=== PATIENT | male | born 1935 | race Hispanic/Latino ===

== ENCOUNTER 2020-01-21 11:16 | Inpatient (IN) | payer OTHER ==
--- OUTSIDE RECORDS SUMMARY | 2020-01-21 11:18 | XMS REPORT | Clinical Summary ---
:1935 Author Organization [facility] Address [address] [place] [address] Care Team Providers Name Role Phone Hugo Browning Primary Care Provider Unavailable Allergies Active Allergy Reactions Severity Noted Date Comments Penicillins Rash Low 11/02/2016 Medications Medication Sig Dispensed Refills Start Date End Date Status sodium bicarbonate Take 1 tablet by 0 Active 650 MG tablet mouth 3 (three) times daily. bumetanide (BUMEX) 1 Take 1 mg by mouth 0 Active MG tablet 2 (two) times daily. cholecalciferol, Take 5,000 Units by 0 Active vitamin D3, 5,000 mouth daily. unit Tab allopurinol Take 300 mg by 0 Act kayleigh (ZYLOPRIM) 300 MG mouth daily. tablet carvedilol (COREG) Take 25 mg by mouth 0 Active 12.5 MG tablet 2 (two) times daily with breakfast and dinner. ferrous sulfate 325 Take 325 mg by 0 Active (65 FE) MG tablet mouth daily with breakfast. Active Problems Problem Noted Date ESRD needing dialysis 11/09/2016 Acute renal failure, unspecified acute renal failure t ype 11/02/2016 CKD (chronic kidney disease) stage 5, GFR less than 15 ml/min 11/02/2016 HTN (hypertension) 11/02/2016 DM (diabetes mellitus) 11/02/2016 Social History Tobacco Use Types Packs/Day Years Used Date Never Smoker Alcohol Use Drinks/Week oz/Week Comments No Sex Assigned at Date Recorded Not on file Job Start Date Occupation Industry Not on file Not on file Not on file Travel History Travel Start Travel End No recent travel history available. Last Filed Vital Signs Not on file Plan of Treatment Not on file Implants Implanted Type Area Account Development Executive Device Shelf Model / Identifier Expiration Serial / Lot Date Cath Estefania Dlys 2 Cuf Curl 62cm [id number] - [id number] Catheter N/A: COVIDIEN:CHAD 04/29/2021 [id number] / Implanted: Qty: 1 on 11/04/2016 by Alva Chowdary MD Dialysis Niallo scooby [place] / Tobacco Sieve Operator [id number] Results Not on fileafter 01/20/2019 Insurance Payer Benefit Plan / Group Subscriber ID Type Phone A ddress MEDICARE MEDICARE A B xxxxxxxxxx Medicare Advance Directives For more information, please contact:[address] [phone] Code Status Date Activated Date Inactivated Comments Full Code 11/09/2016 3:33 AM 11/10/2016 3:42 PM This code status was determined by: Patient Full Code 11/02/2016 4:40 PM 11/04/2016 10:38 PM This code status was determined by: Patient
--- OUTSIDE RECORDS SUMMARY | 2020-01-21 11:18 | XMS REPORT | Clinical Summary ---
:1935 Author Organization [facility] Address [address] [place] [address] Care Team Providers Name Role Phone MD Ann Primary Care Provider Allergies Active Allergy Reactions Severity Noted Date Comments Penicillins Rash High 12/08/2016 Medications Medication Sig Dispensed Refills Start Date End Date Status allopurinol (ZYLOPRIM) Take 300 mg by 0 Active 300 MG tablet mouth daily. cholecalciferol, Take 5,000 Units 0 Active vitamin D3, (VITAMIN by mouth daily. D3) 1,000 unit tablet isosorbide dinitrate Take 20 mg by 0 Active (ISORDIL) 20 MG tablet mouth 2 (two) times a day. sevelamer (RENVELA) 800 Take 800 mg by 0 Active mg tablet mouth 3 (three) times a day with meals. sodium bicarbonate 648 Take 648 mg by 0 Active MG tablet mouth 3 (three) times a day. 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/21 Overview: Added automatically from request for betsy marquez [id number] ESRD (end stage renal disease) 201612/09/2016 Encounter for screening for diabetes mellitus 12/10/19 17 HTN (hypertension) 12/09/2016 Peritoneal dialysis catheter infection 201612/08/2016 Social History Tobacco Use Types Packs/Day Years Used Date Former Smoker Cigarettes Smokeless Tobacco: Never Used Tobacco Cessation: Counseling Given: Yes Comments: stopped 40 yrs ago Alcohol Use Drinks/Week oz/Week Comments No Sex Assigned at Date Recorded Not on file Job Start Date Occupation Industry Not on file Not on file Not on file Travel History Travel Start Travel End No recent travel history available. Last Filed Vital Signs Not on file Plan of Treatment Health Maintenance Due Date Last Done Comments DIABETIC RETINAL EYE EXAM 1935 DIABETIC FOOT EXAM 1946 URINE MICROALBUMIN 1946 SHINGLES VACCINES (#1) 1986 65+ PNEUMOCOCCAL VACCINE (1 of 2 - PCV13) 2001 INFLUENZA VACCINE 04/13/2020 Implants Implanted Type Area Cloth Wire Weaver Device Shelf Model / Identifier Expiration Serial / Date Lot Catheter Dialysis Glidepath [id number] Symmetric Tip - [id number] Implantable N/A: N/A BARD PERIPHERAL 06/12/2018 [id number] / Implanted: 12/09/2016 at [facility] (Quantity not on file) Inf usion Ports VASCULAR / or Accessories [id number] Catheter Dialysis Glidepath [id number] Symmetric Tip - [id number] Implantable Left: BARD PERIPHERAL 02/10/2019 [id number] / Implanted: Qty: 1 on 07/06/2017 by Cira Arrieta MD at [facility] Infusion Ports Chest VASCULAR / or Accessories [id number] Clip Ligtng Weck Hemoclip Plus W/ Tape Ti Sm - [id number] Medical Clips Left: WECK CLOSURE 07/14/2021 [id number] / Implanted: Qty: 2 on 02/04/2017 by Sachin Acevedo MD at [facility] for Internal Arm, SYSTEMS / Use Lower [id number] Clip Ligtng Weck Hemoclip Plus W/ Tape Ti Med - [id number] Medica l Clips Left: TELEFLEX 09/17/2021 [id number] / Implanted: Qty: 2 on 02/04/2017 by Sachin Acevedo MD at [facility] for Internal Arm, MEDICAL / Use Lower [id number] Clip Ligtng Weck Hemoclip Plus W/ Tape Ti Sm - [id number] Medical Clips Left: WECK CLOSURE 01/28/2022 [id number] / Implanted: Qty: 1 on 06/22/2017 by Cira Arrieta MD at [facility] for Internal Arm, SYSTEMS / Use Lower [id number] Clip Ligtng Weck Hemoclip Plus W/ Tape Ti Med - [id number] Medica l Clips Left: TELEFLEX [id number] / Implanted: 06/22/2017 at [facility] (Quantity not on file) for Internal Arm, MEDICAL / Use Lower Catheter Emboltmy 1lmn Baln 4fr 80cm 10.5mm 0.75ml Ltx - [id number] Surgical Left: CUENCA [id number] / Implanted: Qty: 1 on 06/22/2017 by Cira Arrieta MD at [facility] Implants; Arm LIFESCIENCES / Expanders; [id number] Extenders; Surgical Wires Catheter Metallurgical Analyst 4x75cm 6mm Conquest - [id number] Surgical Left: BARD PERIPHERAL [id number] / Implanted: Qty: 1 on 06/22/2017 by Cira Arrieta MD at [facility] Implants; Arm VASCULAR / Expanders; [id number] Extenders; Surgical Wires Catheter Emboltmy Otw Thru-Lmn 5.5fr 80cm Fgrty - [id number] Surg ical Left: CUENCA [id number] / Implanted: Qty: 1 on 06/22/2017 by Cira Arrieta MD at [facility] Implants; Arm LIFESCIENCES / Expanders; [id number] Extenders; Surgical Wires Catheter Emboltmy Aleida 5fr 80cm Artrl Tube Pack - [id number] S urgical Left: CUENCA [id number] / Implanted: Qty: 1 on 06/22/2017 by Cira Arrieta MD at [facility] Implants; Arm LIFESCIENCES / Expanders; [id number] Extenders; Surgical Wires Graft Accuseal 45cm 4-7mm Tapered - [id number] Vascular Graft Left: W Carlitos GORE 07/07/2019 [id number] / Implanted: 02/04/2017 at [facility] (Quantity not on file) Arm, [id number] / Lower [id number] Results Not on fileafter 01/20/2019 Insurance Payer Benefit Plan / Subscriber ID Effective Dates Phone Addre ss Type Group MEDICARE MEDICARE PART A xxxxxxxxxx 2001-Present GILBERTO ANDREWS Medicare AND B Advance Directives For more information, please contact: [phone] Type Date Recorded Patient Materials Clerk Explanati on Advance Directives, Living Will 02/04/2017 8:02 AM and Medical Power of Leather Cleaner Advance Directives, Living Will 12/08/2016 11:01 AM and Medical Power of Leather Cleaner Code Status Date Activated Date Inactivated Comments Full Code 12/08/2016 4:50 PM 12/14/2016 6:23 PM Code Status decision reached by: Patient Full Code 12/08/2016 3:39 PM 12/08/2016 4:50 PM Code Status decision reached by: Patient Full Code 12/08/2016 10:06 AM 12/08/2016 3:39 PM Code Status decision reached by: Patient
--- OUTSIDE RECORDS SUMMARY | 2020-01-21 11:19 | XMS REPORT ---
:1935 Author Organization [facility] t Address [address] [place] [address] Care Team Providers Name Role Phone KELLIE HOOD Unavailable Unavailable SADIA SWEET Unavailable Unavailable Problems This patient has no known problems. Allergies, Adverse Reactions, Alerts This patient has no known allergies or adverse reactions. Medications This patient has no known medications. Results Test Description Test Time Test Comments Text Results Atomic Results Result Comments TSH/FREE T4 IF INDICATED 2016-11-10 10:20:00 Test Item Value Reference Range Comments THYROID STIMULATING HORMONE (BEAKER) (test code = 772) 0.86 uIU/ mL 0.35-4.94 HEPATITIS B [id number] 06:18:00 Test Item Value Reference Range Comments HEPATITIS B CORE TOTAL ANTIBODY (BEAKER) (test Nonreactive N onreactive code = 497) HEPATITIS B SURFACE ANTIBODY (BEAKER) (test code < mIU/mL <8.0 = 647) HEPATITIS B SURFACE ANTIGEN (2) (BEAKER) (test Nonreactive N onreactive code = 2585) BASIC METABOLIC [id number] 05:58:00 Test Item Value Reference Range Comments SODIUM (BEAKER) (test 146 meq/L 136-145 code = 381) POTASSIUM (BEAKER) (test 4.1 meq/L 3.5-5.1 code = 379) CHLORIDE (BEAKER) (test 116 meq/L 98-107 code = 382) CO2 (BEAKER) (test code = 19 meq/L 22-29 355) BLOOD UREA NITROGEN 83 mg/dL 7-21 (BEAKER) (test code = 354) CREATININE (BEAKER) (test 5.06 mg/dL 0.57-1.25 code = 358) GLUCOSE RANDOM (BEAKER) 104 mg/dL 70-105 (test code = 652) CALCIUM (BEAKER) (test 8.9 mg/dL 8.4-10.2 code = 697) EGFR (BEAKER) (test code 11 mL/min/1.73 sq m EST IMATED GFR IS NOT = 1092) ACCURATE CREA TININE CLEARANCE IN PRE DICTING GLOMERULAR FILTR ATION RATE. ESTIMATED GFR IS NOT APPLICABLE F OR DIALYSIS PATIENT S. BASIC METABOLIC [id number] 06:23:00 Test Item Value Reference Range Comments SODIUM (BEAKER) (test 150 meq/L 136-145 code = 381) POTASSIUM (BEAKER) (test 4.1 meq/L 3.5-5.1 code = 379) CHLORIDE (BEAKER) (test 119 meq/L 98-107 code = 382) CO2 (BEAKER) (test code = 20 meq/L 22-29 355) BLOOD UREA NITROGEN 75 mg/dL 7-21 (BEAKER) (test code = 354) CREATININE (BEAKER) (test 4.54 mg/dL 0.57-1.25 code = 358) GLUCOSE RANDOM (BEAKER) 98 mg/dL 70-105 (test code = 652) CALCIUM (BEAKER) (test 9.4 mg/dL 8.4-10.2 code = 697) EGFR (BEAKER) (test code 13 mL/min/1.73 sq m EST IMATED GFR IS NOT = 1092) ACCURATE CREA TININE CLEARANCE IN PRE DICTING GLOMERULAR FILTR ATION RATE. ESTIMATED GFR IS NOT APPLICABLE F OR DIALYSIS PATIENT S. CBC (HEMOGRAM ONLY)2016-11-09 06:12:00 Test Item Value Reference Range Comments WHITE BLOOD CELL COUNT (BEAKER) (test code = 6.0 K/ L 4.0 -10.0 775) RED BLOOD CELL COUNT (BEAKER) (test code = 761) 2.99 M/ L 4.20-5.80 HEMOGLOBIN (BEAKER) (test code = 410) 9.5 GM/DL 13.0-16.8 HEMATOCRIT (BEAKER) (test code = 411) 26.8 % 40.0-50.0 MEAN CORPUSCULAR VOLUME (BEAKER) (test code = 89.7 fL 82 .0-98.0 753) MEAN CORPUSCULAR HEMOGLOBIN (BEAKER) (test code 31.8 pg 27.0-33.0 = 751) MEAN CORPUSCULAR HEMOGLOBIN CONC (BEAKER) (test 35.4 GM/DL 32.0-36.0 code = 752) RED CELL DISTRIBUTION WIDTH (BEAKER) (test code 16.5 % 10.3-14.2 = 412) PLATELET COUNT (BEAKER) (test code = 756) 133 K/CU MM 150-43 0 MEAN PLATELET VOLUME (BEAKER) (test code = 754) 7.7 fL 6.5-10.5 NUCLEATED RED BLOOD CELLS (BEAKER) (test code = 0 /100 WBC 0-0 413) 0.00POCT-GLUCOSE [id number] 17:48:00 Test Item Value Reference Range Comments POC-GLUCOSE METER (BEAKER) 95 mg/dL 70-110 TESTE D AT [address] (test code = 1538) [place] [address] POCT-GLUCOSE [id number] 16:00:00 Test Item Value Reference Range Comments POC-GLUCOSE METER (BEAKER) 81 mg/dL 70-110 TESTE D AT [address] (test code = 1538) [place] [address] POCT-GLUCOSE [id number] 11:37:00 Test Item Value Reference Range Comments POC-GLUCOSE METER (BEAKER) 88 mg/dL 70-110 TESTE D AT [address] (test code = 1538) [place] [address] POCT-GLUCOSE [id number] 08:18:00 Test Item Value Reference Range Comments POC-GLUCOSE METER (BEAKER) 82 mg/dL 70-110 TESTE D AT [address] (test code = 1538) [place] [address] BASIC METABOLIC [id number] 06:08:00 Test Item Value Reference Range Comments SODIUM (BEAKER) (test 145 meq/L 136-145 code = 381) POTASSIUM (BEAKER) (test 4.1 meq/L 3.5-5.1 code = 379) CHLORIDE (BEAKER) (test 112 meq/L 98-107 code = 382) CO2 (BEAKER) (test code = 22 meq/L 22-29 355) BLOOD UREA NITROGEN 68 mg/dL 7-21 (BEAKER) (test code = 354) CREATININE (BEAKER) (test 5.02 mg/dL 0.57-1.25 code = 358) GLUCOSE RANDOM (BEAKER) 77 mg/dL 70-105 (test code = 652) CALCIUM (BEAKER) (test 8.8 mg/dL 8.4-10.2 code = 697) EGFR (BEAKER) (test code 11 mL/min/1.73 sq m EST IMATED GFR IS NOT = 1092) ACCURATE CREA TININE CLEARANCE IN PRE DICTING GLOMERULAR FILTR ATION RATE. ESTIMATED GFR IS NOT APPLICABLE F OR DIALYSIS PATIENT S. [id number] 06:07:00 Test Item Value Reference Range Comments PHOSPHORUS (BEAKER) (test code = 604) 5.2 mg/dL 2.3-4.7 [id number] 06:07:00 Test Item Value Reference Range Comments MAGNESIUM (BEAKER) (test code = 627) 2.2 mg/dL 1.6-2.6 POCT-GLUCOSE [id number] 21:33:00 Test Item Value Reference Range Comments POC-GLUCOSE METER (BEAKER) 96 mg/dL 70-110 TESTE D AT [address] (test code = 1538) [place] [address] POCT-GLUCOSE [id number] 21:33:00 Test Item Value Reference Range Comments POC-GLUCOSE METER (BEAKER) 148 mg/dL 70-110 TESTE D AT [address] (test code = 1538) [place] [address] [id number] 13:41:00 Test Item Value Reference Range Comments FERRITIN (BEAKER) (test code = 361) 1268 ng/mL 5-275 Effective 07/31/2014: Reference Range ChangeNew: Male 5-275 Previous: Male 22-322 Female 5-275 Female 10-291VITAMIN D, 25-HYDROXY 2016-11-03 13:41:00 Test Item Value Reference Range Comments VITAMIN D 25-OH (BEAKER) (test code = 2764) 34.1 ng/mL 13.0 -47.8 PTH, [id number] 13:15:00 Test Item Value Reference Range Comments PARATHYROID HORMONE INTACT (BEAKER) (test code = 161.7 pg/mL 8.5-72.5 577) Effective 07/31/2014: Reference Range ChangeNew: 8.5-72.5 Previous: 15.0-90.0 [id number] 13:10:00 Test Item Value Reference Range Comments PHOSPHORUS (BEAKER) (test code = 604) 5.6 mg/dL 2.3-4.7 IRON, TIBC, % SAT. (WITHOUT FERRITIN)2016-11-03 13:10:00 Test Item Value Reference Range Comments IRON (BEAKER) (test code = 547) 97 ug/dL 40-160 TOTAL IRON BINDING CAPACITY (BEAKER) (test code = 183 ug/dL 250-450 769) IRON % SATURATION (2) (BEAKER) (test code = 2590) 53 % 20-55 POCT-GLUCOSE [id number] 11:59:00 Test Item Value Reference Range Comments POC-GLUCOSE METER (BEAKER) 84 mg/dL 70-110 TESTE D AT [address] (test code = 1538) [place] [address] POCT-GLUCOSE [id number] 08:05:00 Test Item Value Reference Range Comments POC-GLUCOSE METER (BEAKER) 89 mg/dL 70-110 TESTE D AT [address] (test code = 1538) [facility] [address] CBC W/PLT COUNT & AUTO [id number] 07:18:00 Test Item Value Reference Range Comments WHITE BLOOD CELL COUNT (BEAKER) (test code = 3.9 K/ L 4.0 -10.0 775) RED BLOOD CELL COUNT (BEAKER) (test code = 761) 2.30 M/ L 4.20-5.80 HEMOGLOBIN (BEAKER) (test code = 410) 7.3 GM/DL 13.0-16.8 HEMATOCRIT (BEAKER) (test code = 411) 20.8 % 40.0-50.0 MEAN CORPUSCULAR VOLUME (BEAKER) (test code = 90.2 fL 82 .0-98.0 753) MEAN CORPUSCULAR HEMOGLOBIN (BEAKER) (test code 31.8 pg 27.0-33.0 = 751) MEAN CORPUSCULAR HEMOGLOBIN CONC (BEAKER) (test 35.3 GM/DL 32.0-36.0 code = 752) RED CELL DISTRIBUTION WIDTH (BEAKER) (test code 16.3 % 10.3-14.2 = 412) PLATELET COUNT (BEAKER) (test code = 756) 136 K/CU MM 150-43 0 MEAN PLATELET VOLUME (BEAKER) (test code = 754) 7.7 fL 6.5-10.5 NUCLEATED RED BLOOD CELLS (BEAKER) (test code = 0 /100 WBC 0-0 413) NEUTROPHILS RELATIVE PERCENT (BEAKER) (test code 59 % = 429) LYMPHOCYTES RELATIVE PERCENT (BEAKER) (test code 28 % = 430) MONOCYTES RELATIVE PERCENT (BEAKER) (test code = 6 % 431) EOSINOPHILS RELATIVE PERCENT (BEAKER) (test code 7 % = 432) BASOPHILS RELATIVE PERCENT (BEAKER) (test code = 0 % 437) NEUTROPHILS ABSOLUTE COUNT (BEAKER) (test code = 2.28 K/ L 1.80-8.00 670) LYMPHOCYTES ABSOLUTE COUNT (BEAKER) (test code = 1.07 K/ L 1.48-4.50 414) MONOCYTES ABSOLUTE COUNT (BEAKER) (test code = 0.24 K/ L 0 .00-1.30 415) EOSINOPHILS ABSOLUTE COUNT (BEAKER) (test code = 0.27 K/ L 0.00-0.50 416) BASOPHILS ABSOLUTE COUNT (BEAKER) (test code = 0.01 K/ L 0 .00-0.20 417) 0.00SI METABOLIC [id number] 06:19:00 Test Item Value Reference Range Comments SODIUM (BEAKER) (test 146 meq/L 136-145 code = 381) POTASSIUM (BEAKER) (test 4.0 meq/L 3.5-5.1 code = 379) CHLORIDE (BEAKER) (test 114 meq/L 98-107 code = 382) CO2 (BEAKER) (test code = 20 meq/L 22-29 355) BLOOD UREA NITROGEN 72 mg/dL 7-21 (BEAKER) (test code = 354) CREATININE (BEAKER) (test 5.28 mg/dL 0.57-1.25 code = 358) GLUCOSE RANDOM (BEAKER) 78 mg/dL 70-105 (test code = 652) CALCIUM (BEAKER) (test 8.7 mg/dL 8.4-10.2 code = 697) EGFR (BEAKER) (test code 11 mL/min/1.73 sq m EST IMATED GFR IS NOT = 1092) ACCURATE CREA TININE CLEARANCE IN PRE DICTING GLOMERULAR FILTR ATION RATE. ESTIMATED GFR IS NOT APPLICABLE F OR DIALYSIS PATIENT S. [id number] 06:13:00 Test Item Value Reference Range Comments PHOSPHORUS (BEAKER) (test code = 604) 6.2 mg/dL 2.3-4.7 [id number] 06:13:00 Test Item Value Reference Range Comments MAGNESIUM (BEAKER) (test code = 627) 2.5 mg/dL 1.6-2.6 HEMOGLOBIN AND [id number] 05:57:00 Test Item Value Reference Range Comments HEMOGLOBIN (BEAKER) (test code = 410) 7.1 GM/DL 13.0-16.8 HEMATOCRIT (BEAKER) (test code = 411) 20.4 % 40.0-50.0 POCT-GLUCOSE [id number] 21:27:00 Test Item Value Reference Range Comments POC-GLUCOSE METER (BEAKER) 183 mg/dL 70-110 [facility]E D AT [facility] [address] [facility] (test code = 1538) [facility] [address] BASIC METABOLIC [id number] 14:40:00 Test Item Value Reference Range Comments SODIUM (BEAKER) (test 145 meq/L 136-145 code = 381) POTASSIUM (BEAKER) (test 4.3 meq/L 3.5-5.1 code = 379) CHLORIDE (BEAKER) (test 111 meq/L 98-107 code = 382) CO2 (BEAKER) (test code = 22 meq/L 22-29 355) BLOOD UREA NITROGEN 75 mg/dL 7-21 (BEAKER) (test code = 354) CREATININE (BEAKER) (test 5.54 mg/dL 0.57-1.25 code = 358) GLUCOSE RANDOM (BEAKER) 99 mg/dL 70-105 (test code = 652) CALCIUM (BEAKER) (test 9.5 mg/dL 8.4-10.2 code = 697) EGFR (BEAKER) (test code mL/min/1.73 sq m INSUF FICIENT CLINICAL DATA = 1092) TO CALCULATE EST IMATED GFR. URINALYSIS W/ [id number] 14:34:00 Test Item Value Reference Range Comments COLOR (BEAKER) (test code = 470) Light Yellow CLARITY (BEAKER) (test code = 469) Clear SPECIFIC GRAVITY UA (BEAKER) (test code = 1.008 1.001- 1.035 468) PH UA (BEAKER) (test code = 467) 5.5 5.0-8.0 PROTEIN UA (BEAKER) (test code = 464) 100 mg/dL Negative GLUCOSE UA (BEAKER) (test code = 365) Negative Negative KETONES UA (BEAKER) (test code = 371) Negative Negative BILIRUBIN UA (BEAKER) (test code = 462) Negative Negative BLOOD UA (BEAKER) (test code = 461) Small Negative NITRITE UA (BEAKER) (test code = 465) Negative Negative LEUKOCYTE ESTERASE UA (BEAKER) (test code Negative Negati ve = 466) UROBILINOGEN UA (BEAKER) (test code = 0.2 mg/dL 0.2-1.0 463) RBC UA (BEAKER) (test code = 519) 1 /HPF WBC UA (BEAKER) (test code = 520) < /HPF GRANULAR CASTS (BEAKER) (test code = 515) 2 /LPF SOURCE(BEAKER) (test code = 2795) Urine, Clean Catch [id number] 14:33:00 Test Item Value Reference Range Comments PROTIME (BEAKER) (test code = 759) 13.2 seconds 11.7-14.7 INR (BEAKER) (test code = 370) 1.0 <=5.9 PARTIAL THROMBOPLASTIN TIME (BEAKER) (test code 28.0 seconds 22.5-36.0 = 760) RECOMMENDED COUMADIN/WARFARIN INR THERAPY RANGESSTANDARD DOSE: 2.0 - 3.0 Includes: PROPHYLAXIS forvenous thrombosis, systemic embolization; TREATMENT for venous thrombosis and/or pulmonary embolus.HIGH RISK: Target INR is 2.5-3.5 for patients with mechanical heart valves.CBC W/PLT COUNT & AUTO DIFFERENTIAL 2016-11-02 14:31:00 Test Item Value Reference Range Comments WHITE BLOOD CELL COUNT (BEAKER) (test code = 6.0 K/ L 4.0 -10.0 775) RED BLOOD CELL COUNT (BEAKER) (test code = 761) 2.65 M/ L 4.20-5.80 HEMOGLOBIN (BEAKER) (test code = 410) 8.3 GM/DL 13.0-16.8 HEMATOCRIT (BEAKER) (test code = 411) 23.8 % 40.0-50.0 MEAN CORPUSCULAR VOLUME (BEAKER) (test code = 89.8 fL 82 .0-98.0 753) MEAN CORPUSCULAR HEMOGLOBIN (BEAKER) (test code 31.2 pg 27.0-33.0 = 751) MEAN CORPUSCULAR HEMOGLOBIN CONC (BEAKER) (test 34.7 GM/DL 32.0-36.0 code = 752) RED CELL DISTRIBUTION WIDTH (BEAKER) (test code 16.7 % 10.3-14.2 = 412) PLATELET COUNT (BEAKER) (test code = 756) 167 K/CU MM 150-43 0 MEAN PLATELET VOLUME (BEAKER) (test code = 754) 7.7 fL 6.5-10.5 NUCLEATED RED BLOOD CELLS (BEAKER) (test code = 0 /100 WBC 0-0 413) NEUTROPHILS RELATIVE PERCENT (BEAKER) (test code 66 % = 429) LYMPHOCYTES RELATIVE PERCENT (BEAKER) (test code 22 % = 430) MONOCYTES RELATIVE PERCENT (BEAKER) (test code = 7 % 431) EOSINOPHILS RELATIVE PERCENT (BEAKER) (test code 5 % = 432) BASOPHILS RELATIVE PERCENT (BEAKER) (test code = 0 % 437) NEUTROPHILS ABSOLUTE COUNT (BEAKER) (test code = 3.94 K/ L 1.80-8.00 670) LYMPHOCYTES ABSOLUTE COUNT (BEAKER) (test code = 1.31 K/ L 1.48-4.50 414) MONOCYTES ABSOLUTE COUNT (BEAKER) (test code = 0.41 K/ L 0 .00-1.30 415) EOSINOPHILS ABSOLUTE COUNT (BEAKER) (test code = 0.32 K/ L 0.00-0.50 416) BASOPHILS ABSOLUTE COUNT (BEAKER) (test code = 0.01 K/ L 0 .00-0.20 417) 0.00
[2020-01-21] MEDS ORDERED: FAMOTIDINE 20 MG/2 ML VIAL IV ONE (12:12)
[2020-01-21] MEDS ORDERED: ONDANSETRON 4 MG/2 ML VIAL ONE (12:12)
--- NOTE | 2020-01-21 12:22 | RAD REPORT ---
EXAM DESCRIPTION: RAD - Chest Single View - 01/21/2020 12:15 pm CLINICAL HISTORY: Cough;Dyspnea Chest pain. COMPARISON: Chest Single View dated 11/08/2016; Chest Single View dated 08/05/2016; CHEST SINGLE VIEW dated 08/02/2008; CHEST SINGLE VIEW dated 08/02/2008 FINDINGS: Portable technique limits examination quality. Moderate bilateral pulmonary opacities are present suspicious for interstitial pneumonia, greatest in the right lower lobe. The heart is mildly prominent size. No displaced fractures.
[2020-01-21 12:34] LABS: Absolute Lymphocytes (CBC) 1.8 K/uL (0.7-4.9); Basophils % 0.8 % (0-1.3); Hematocrit 33.2 % (39.6-49.0); Lymphocytes % 13.5 % (15.3-44.8); MPV 9.1 fL (7.6-11.3); RBC Red Blood Cell Count 3.41 M/uL (4.33-5.43)
[2020-01-21 12:35] LABS: Protime INR 1.01
[2020-01-21 13:05] LABS: Albumin 3.1 g/dL (3.4-5.0); Bilirubin Direct 0.1 mg/dL (0-0.2); Bilirubin Total 0.6 mg/dL (0.2-1.0); Protein, Total 7.3 g/dL (6.4-8.2)
[2020-01-21 13:07] LABS: Troponin (Emerg Dept Use Only) 9.43 ng/mL (0.0-0.045)
--- NOTE | 2020-01-21 13:31 | EDPHYS ---
Physician Documentation [facility] Name: Avery Ray Sr Age: 84 yrs Sex: Male : 1935 Arrival Date: 01/21/2020 Time: 11:19 Bed 8 Private MD: Stephan Lazo R ED Physician Rex Fitch HPI: 01/20 12:03 This 84 yrs old Male presents to ER via Wheelchair with complaints of boogie Abdominal Pain, Nausea/Vomiting. 12:03 The patient presents to the emergency department with nausea, vomiting, abdominal pain, boogie of the right upper quadrant, left upper quadrant, right lower quadrant and left lower quadrant. Onset: The symptoms/episode began/occurred last night. Possible causes: unknown. Historical: - Allergies: 11:33 PENICILLINS; hb - Home Meds: :33 acetaminophen-codeine 300-30 mg Oral tab 1 tab every 6 hours [Active]; allopurinol 300 hb mg Oral tab 1 tab once daily [Active]; cholecalciferol (vitamin D3) 5,000 unit Oral cap daily [Active]; isosorbide dinitrate 20 mg Oral tab 1 tab 2 times per day [Active]; sevelamer HCl 800 mg TID with meals Oral [Active]; sodium bicarbonate 650 mg Oral tab 650 mg three times a day [Active]; - PMHx: 11:33 Diabetes - NIDDM; ESRD; Gout; Hypertension; hb - PSHx: 11:33 Dialysis fistula - Left Arm; hb - Immunization history:: Adult Immunizations up to date. - Social history:: Smoking status: Patient denies any tobacco usage or history of. ROS: 12:04 Constitutional: Negative for fever, chills, and weight loss, Eyes: Negative for injury, boogie pain, redness, and discharge, ENT: Negative for injury, pain, and discharge, Neck: Negative for injury, pain, and swelling, Cardiovascular: Negative for chest pain, palpitations, and edema, Back: Negative for injury and pain, : Negative for injury, bleeding, discharge, and swelling, MS/Extremity: Negative for injury and deformity, Neuro: Negative for headache, weakness, numbness, tingling, and seizure, Psych: Negative for depression, anxiety, suicide ideation, homicidal ideation, and hallucinations, Allergy/Immunology: Negative for hives, rash, and allergies, Endocrine: Negative for neck swelling, polydipsia, polyuria, polyphagia, and marked weight changes, Hematologic/Lymphatic: Negative for swollen nodes, abnormal bleeding, and unusual bruising. 12:04 Respiratory: Positive for cough, dyspnea on exertion, shortness of breath, at rest. 12:04 Abdomen/GI: Positive for abdominal pain, nausea and vomiting. 12:04 Skin: Positive for diaphoresis, pallor, of the abdomen. Exam: 12:06 Head/Face: Normocephalic, atraumatic. ENT: Nares patent. No nasal discharge, no boogie septal abnormalities noted. Tympanic membranes are normal and external auditory canals are clear. Oropharynx with no redness, swelling, or masses, exudates, or evidence of obstruction, uvula midline. Mucous membranes moist. Neck: Trachea midline, no thyromegaly or masses palpated, and no cervical lymphadenopathy. Supple, full range of motion without nuchal rigidity, or vertebral point tenderness. No Meningismus. Chest/axilla: Normal chest wall appearance and motion. Nontender with no deformity. No lesions are appreciated. Cardiovascular: Regular rate and rhythm with a normal S1 and S2. No gallops, murmurs, or rubs. Normal PMI, no JVD. No pulse deficits. Respiratory: Lungs have equal breath sounds bilaterally, clear to auscultation and percussion. No rales, rhonchi or wheezes noted. No increased work of breathing, no retractions or nasal flaring. Abdomen/GI: Soft, non-tender, with normal bowel sounds. No distension or tympany. No guarding or rebound. No evidence of tenderness throughout. Back: No spinal tenderness. No costovertebral tenderness. Full range of motion. Male : Normal genitalia with no discharge or lesions. MS/ Extremity: Pulses equal, no cyanosis. Neurovascular intact. Full, normal range of motion. Neuro: Awake and alert, GCS 15, oriented to person, place, time, and situation. Cranial nerves II-XII grossly intact. Motor strength 5/5 in all extremities. Sensory grossly intact. Cerebellar exam normal. Normal gait. Psych: Awake, alert, with orientation to person, place and time. Behavior, mood, and affect are within normal limits. 12:06 Constitutional: The patient appears in obvious distress, moderately distressed. 12:06 Cardiovascular: Rate: normal, Rhythm: regular, Pulses: Pulses are 4+ in bilateral radial, brachial, femoral, popliteal, posterior tibial and and dorsalis pedis arteries.. Heart sounds: normal, Edema: is not appreciated, JVD: is noted bilaterally, to 3 cm, left upper arm av fistula, positive thrill. 12:06 Respiratory: moderate respiratory distress is noted, Respirations: labored breathing, Breath sounds: decreased breath sounds, rhonchi, that are moderate, Respiratory rate: 24 Vital Signs: 11:31 BP 128 / 72; Pulse 84; Resp 16; Temp 97.1; Pulse Ox 100% ; Weight 76.66 kg; Height 5 hb ft. 6 in. (167.64 cm); Pain 8/10; 13:00 BP 116 / 65; Pulse 74; Resp 22; Pulse Ox 99% on 30% BiPAP; Pain 5/10; em 14:00 BP 99 / 57; Pulse 78; Resp 18; Pulse Ox 97% on 30% BiPAP; em 14:54 BP 105 / 59; Pulse 74; Resp 20; Pulse Ox 95% on 21% BiPAP; em 20:00 BP 108 / 66; Pulse 66; Resp 18; Temp 97.7; Pulse Ox 98% on 2 lpm NC; rv 11:31 Body Mass Index 27.28 (76.66 kg, 167.64 cm) hb MDM: 11:31 Patient medically screened. [place] 12:08 Data reviewed: vital signs, nurses notes, lab test result(s), EKG, radiologic studies, [place] plain films. 13:23 Antibiotic administration: The patient is discharged and will get outpatient [place] antibiotics, rocephin. Differential diagnosis: Anemia CHF exacerbation, Nonspecific abd pain, gastritis, Myocardial Infarction pneumonia, pulmonary edema, Unstable Angina. Differential Diagnosis altered mental status. Immunization status: Pneumococcal vaccine: Data interpreted: monitoring tech: rate is 84 beats/min, rhythm is normal sinus rhythm, Pulse oximetry: on room air is 77 %. Test interpretation: by ED physician or midlevel provider: ECG, plain radiologic studies. Physician consultation: dw dr sarmiento and dr jones agree icu, dialysis, aspirin and heparin,admit to [facility]. ED course: to icu, dr gomez. 13:56 Counseling: I had a detailed discussion with the patient and/or guardian regarding: the [place] historical points, exam findings, and any diagnostic results supporting the discharge/admit diagnosis, the presence of at least one elevated blood pressure reading (>120/80) during this emergency department visit, lab results, radiology results, the need for further work-up and treatment in the hospital. Medication response: Zofran markedly relieved the patient's nausea. Response to treatment: the patient's symptoms have markedly improved after treatment. ED course: DR CHOW IS THE [employer] ON THE CASE. 01/20 12:02 Order name: Basic Metabolic Panel; Complete Time: 13:12 [place] 01/20 12:02 Order name: CBC with Diff; Complete Time: 12:40 [place] 01/20 12:02 Order name: LFT's; Complete Time: 13:12 [place] 01/20 12:02 Order name: Magnesium; Complete Time: 13:12 [place] 01/20 12:02 Order name: NT PRO-BNP; Complete Time: 13:12 [place] 01/20 12:02 Order name: PT-INR; Complete Time: 12:40 [place] 01/20 12:02 Order name: Troponin (emerg Dept Use Only); Complete Time: 13:12 [place] 01/20 12:02 Order name: Type And Screen; Complete Time: 13:07 [place] 01/20 12:02 Order name: Lipase; Complete Time: 13:12 [place] 01/20 12:41 Order name: Procalcitonin; Complete Time: 13:18 [place] 01/20 12:41 Order name: Blood Culture Adult (2) [place] 01/20 13:47 Order name: CBC with Automated Diff [facility] 01/20 13:47 Order name: CBC with Automated Diff [facility] 01/20 13:47 Order name: Comprehensive Metabolic Panel [facility] 01/20 12:02 Order name: XRAY Chest (1 view); Complete Time: 12:34 [place] 01/20 12:02 Order name: BIPAP [place] 01/20 13:47 Order name: Comprehensive Metabolic Panel [facility] 01/20 13:47 Order name: Chest Pa And Lat (2 Views) [facility] 01/20 13:47 Order name: Chest Pa And Lat (2 Views) [facility] 01/20 13:55 Order name: Echo with Doppler [facility] 01/20 13:57 Order name: Troponin I [facility] 01/20 13:57 Order name: Troponin I [facility] 01/20 13:57 Order name: Troponin I [facility] 01/20 13:57 Order name: Troponin I [facility] 01/20 14:23 Order name: ABG Arterial Blood Gas [facility] 01/20 12:02 Order name: EKG; Complete Time: 12:03 [place] 01/20 12:02 Order name: Cardiac monitoring; Complete Time: 12:28 [place] 01/20 12:02 Order name: EKG - Nurse/Tech; Complete Time: 12:28 [place] 01/20 12:02 Order name: Labs collected and sent; Complete Time: 12:28 [place] 01/20 12:02 Order name: O2 Per Protocol; Complete Time: 12:28 [place] 01/20 12:02 Order name: O2 Sat Monitoring; Complete Time: 12:03 [place] 01/20 12:02 Order name: IV Saline Lock - Large Bore; Complete Time: 12:28 [place] 01/20 13:47 Order name: CONS Pharmacy Consult [facility] 01/20 13:47 Order name: Renal [facility] 01/20 13:50 Order name: Respiratory Therapy Consult [facility] 01/20 13:54 Order name: CONS Physician Consult [facility] 01/20 13:54 Order name: CONS Physician Consult [facility] Administered Medications: 12:17 Drug: Pepcid 20 mg Route: IVP; Site: right antecubital; em 14:57 Follow up: Response: No adverse reaction em 12:20 Drug: Zofran (Ondansetron) 4 mg Route: IVP; Site: right antecubital; em 14:57 Follow up: Response: No adverse reaction; Marked relief of symptoms; Nausea is decreasedem 13:35 Drug: morphine 2 mg Route: IVP; Site: right antecubital; em 14:56 Follow up: Response: No adverse reaction; Marked relief of symptoms; Pain is decreased; em RASS: Alert and Calm (0) 13:37 Drug: Rocephin 1 grams Route: IV; Rate: per protocol; Site: right antecubital; em 14:57 Follow up: Response: No adverse reaction; IV Status: Completed infusion; IV Intake: 10mlem 13:39 Drug: Nitro-Bid Ointment 2 % 0.5 inches Route: Transdermal; Site: anterior chest wall; em 13:40 Drug: Aspirin 162 mg Route: PO; em 14:57 Follow up: Response: No adverse reaction em 14:00 Drug: Lasix 100 mg Route: IVP; Site: right antecubital; em 14:57 Follow up: Response: No adverse reaction em 14:04 Drug: Heparin (ND-Bolus No thrombolytic) - HEParin 60 units/kg {Co-Signature: [email or web address] em (Drake Castellano RN).} Route: IVP; Site: right antecubital; 14:56 Follow up: Response: No adverse reaction em 14:05 Drug: Heparin (ND Drip) 12 units/kg/hr - (HEParin 52018 units, D5W 500 ml) em {Co-Signature: [email or web address] (Drake Castellano RN).} Route: IV; Rate: calculated rate; Site: right antecubital; 17:01 Follow up: IV Status: Infusion continued upon admission em Disposition: 01/21/20 13:31 Hospitalization ordered by Aime Green for Inpatient Admission. Preliminary diagnosis are Dyspnea, Unspecified combined systolic (congestive) and diastolic (congestive) heart failure, Non-ST elevation (NSTEMI) myocardial infarction, Hypoxemia, End stage renal disease - on hd, M,W,F., Chest pain, unspecified, Type 2 diabetes mellitus. - Bed requested for Intensive Care Unit. - Status is Inpatient Admission. rv - Condition is Serious. - Problem is new. - Symptoms have improved. Signatures: Dispatcher [employer] Yasmine Johns, RN Rex Ty MD MD cha Munoz, Edgar, RN RN Elisa Person RN RN Lisa Franklin Sy Hill, RN RN Drake Castellano RN jl7 Corrections: (The following items were deleted from the chart) 15:47 13:31 Hospitalization Ordered by Aime Green MD for Inpatient Admission. eb Preliminary diagnosis is Dyspnea; Unspecified combined systolic (congestive) and diastolic (congestive) heart failure; Non-ST elevation (NSTEMI) myocardial infarction; Hypoxemia; End stage renal disease - on hd, M,W,F.; Chest pain, unspecified; Type 2 diabetes mellitus. Bed requested for Intensive Care Unit. Status is Inpatient Admission. Condition is Serious. Problem is new. Symptoms have improved. [place] 17:45 15:47 01/21/2020 13:31 Hospitalization Ordered by Aime Green MD for Inpatient eb Admission. Preliminary diagnosis is Dyspnea; Unspecified combined systolic (congestive) and diastolic (congestive) heart failure; Non-ST elevation (NSTEMI) myocardial infarction; Hypoxemia; End stage renal disease - on hd, M,W,F.; Chest pain, unspecified; Type 2 diabetes mellitus. Bed requested for [facility] ER HOLD. Status is Inpatient Admission. Condition is Serious. Problem is new. Symptoms have improved. eb 17:48 17:45 01/21/2020 13:31 Hospitalization Ordered by Aime Green MD for Inpatient dw Admission. Preliminary diagnosis is Dyspnea; Unspecified combined systolic (congestive) and diastolic (congestive) heart failure; Non-ST elevation (NSTEMI) myocardial infarction; Hypoxemia; End stage renal disease - on hd, M,W,F.; Chest pain, unspecified; Type 2 diabetes mellitus. Bed requested for Telemetry/MedSurg (Inpatient). Status is Inpatient Admission. Condition is Serious. Problem is new. Symptoms have improved. eb 18:35 17:48 01/21/2020 13:31 Hospitalization Ordered by Aime Green MD for Inpatient eb Admission. Preliminary diagnosis is Dyspnea; Unspecified combined systolic (congestive) and diastolic (congestive) heart failure; Non-ST elevation (NSTEMI) myocardial infarction; Hypoxemia; End stage renal disease - on hd, M,W,F.; Chest pain, unspecified; Type 2 diabetes mellitus. Bed requested for Telemetry/MedSurg (Inpatient). Status is Inpatient Admission. Condition is Serious. Problem is new. Symptoms have improved. dw 18:50 18:35 01/21/2020 13:31 Hospitalization Ordered by Aime Green MD for Inpatient dw Admission. Preliminary diagnosis is Dyspnea; Unspecified combined systolic (congestive) and diastolic (congestive) heart failure; Non-ST elevation (NSTEMI) myocardial infarction; Hypoxemia; End stage renal disease - on hd, M,W,F.; Chest pain, unspecified; Type 2 diabetes mellitus. Bed requested for Intensive Care Unit. Status is Inpatient Admission. Condition is Serious. Problem is new. Symptoms have improved. eb 19:57 18:50 01/21/2020 13:31 Hospitalization Ordered by Aime Green MD for Inpatient rv Admission. Preliminary diagnosis is Dyspnea; Unspecified combined systolic (congestive) and diastolic (congestive) heart failure; Non-ST elevation (NSTEMI) myocardial infarction; Hypoxemia; End stage renal disease - on hd, M,W,F.; Chest pain, unspecified; Type 2 diabetes mellitus. Bed requested for Intensive Care Unit. Status is Inpatient Admission. Condition is Serious. Problem is new. Symptoms have improved. dw
--- NOTE | 2020-01-21 13:31 | ER ---
Nurse's Notes [facility] Name: Avery Ray Sr Age: 84 yrs Sex: Male : 1935 Arrival Date: 01/21/2020 Time: 11:19 Bed 8 Private MD: Stephan Lazo R Diagnosis: Dyspnea;Unspecified combined systolic (congestive) and diastolic (congestive) heart failure;Non-ST elevation (NSTEMI) myocardial infarction;Hypoxemia;End stage renal disease-on hd, M,W,F.;Chest pain, unspecified;Type 2 diabetes mellitus Presentation: 01/20 11:31 Chief complaint: N/V, abdominal pain, and chills since last night. Coronavirus screen: hb Proceed with normal triage. Ebola Screen: No symptoms or risks identified at this time. Initial Sepsis Screen: Does the patient meet any 2 criteria? No. Patient's initial sepsis screen is negative. Does the patient have a suspected source of infection? No. Patient's initial sepsis screen is negative. Risk Assessment: Do you want to hurt yourself or someone else? Patient reports no desire to harm self or others. Onset of symptoms was January 20, 2020. 11:31 Method Of Arrival: Wheelchair hb 11:31 Acuity: LILO 3 hb 12:06 Acuity: LILO 2 jl7 Historical: - Allergies: 11:33 PENICILLINS; hb - Home Meds: 11:33 acetaminophen-codeine 300-30 mg Oral tab 1 tab every 6 hours [Active]; allopurinol 300 hb mg Oral tab 1 tab once daily [Active]; cholecalciferol (vitamin D3) 5,000 unit Oral cap daily [Active]; isosorbide dinitrate 20 mg Oral tab 1 tab 2 times per day [Active]; sevelamer HCl 800 mg TID with meals Oral [Active]; sodium bicarbonate 650 mg Oral tab 650 mg three times a day [Active]; - PMHx: 11:33 Diabetes - NIDDM; ESRD; Gout; Hypertension; hb - PSHx: 11:33 Dialysis fistula - Left Arm; hb - Immunization history:: Adult Immunizations up to date. - Social history:: Smoking status: Patient denies any tobacco usage or history of. Screenin:15 Abuse screen: Denies threats or abuse. Nutritional screening: No deficits noted. em Tuberculosis screening: No symptoms or risk factors identified. Fall Risk None identified. Assessment: 11:55 General: Appears distressed, uncomfortable, Behavior is cooperative, restless. Pain: em Complains of pain in abdomen Pain currently is 5 out of 10 on a pain scale. Neuro: Level of Consciousness is awake, alert, obeys commands, Oriented to person, place, time, situation, Appropriate for age. Cardiovascular: Reports nausea, Denies chest pain, Capillary refill is > 3 seconds Rhythm is sinus rhythm Chest pain is denied Dialysis shunt: in the left bicep, with palpable thrill, with auscultated bruit, with no erythema, with no edema, no bleeding noted. Respiratory: Reports shortness of breath at rest Airway is patent Respiratory effort is labored, Respiratory pattern is regular, tachypnea Denies cough, labored breathing. GI: Abdomen is round non-distended, Bowel sounds present X 4 quads. Abdomen is tender to palpation X 4 quads. Abd is rigid X 4 quads. Reports lower abdominal pain, upper abdominal pain, nausea. Derm: Skin is intact, is healthy with good turgor, Skin is pink, warm \T\ dry. Musculoskeletal: Capillary refill < 3 seconds, Range of motion: intact in all extremities. 11:58 Reassessment: pt having respiratory distress, Dr. Fitch at bedside, placed on em nonrebreather, ordered BiPAP. 12:10 Respiratory: Patient placed on BiPAP: Respiratory Rate: 10. em 12:10 Respiratory: Patient placed on BiPAP: Expiratory (EPAP) Pressure: 7. em 12:10 Respiratory: Patient placed on BiPAP: FiO2%: 30. em 12:10 Respiratory: Respiratory: Patient placed on BiPAP: Inspiratory Pressure: 14. em 12:20 Reassessment: Patient states feeling better. Patient states symptoms have improved. em 13:00 Reassessment: Patient appears in no apparent distress at this time. Patient and/or em family updated on plan of care and expected duration. Pain level reassessed. Patient is alert, oriented x 3, equal unlabored respirations, skin warm/dry/pink. 14:04 Reassessment: Patient appears in no apparent distress at this time. pending ICU bed. em 14:59 Reassessment: Patient appears in no apparent distress at this time. Patient and/or em family updated on plan of care and expected duration. Pain level reassessed. Patient is alert, oriented x 3, equal unlabored respirations, skin warm/dry/pink. 15:59 Reassessment: pt admitted to ICU, charting will be continued in [facility], see [facility]. em Vital Signs: 11:31 BP 128 / 72; Pulse 84; Resp 16; Temp 97.1; Pulse Ox 100% ; Weight 76.66 kg; Height 5 hb ft. 6 in. (167.64 cm); Pain 8/10; 13:00 BP 116 / 65; Pulse 74; Resp 22; Pulse Ox 99% on 30% BiPAP; Pain 5/10; em 14:00 BP 99 / 57; Pulse 78; Resp 18; Pulse Ox 97% on 30% BiPAP; em 14:54 BP 105 / 59; Pulse 74; Resp 20; Pulse Ox 95% on 21% BiPAP; em 20:00 BP 108 / 66; Pulse 66; Resp 18; Temp 97.7; Pulse Ox 98% on 2 lpm NC; rv 11:31 Body Mass Index 27.28 (76.66 kg, 167.64 cm) hb ED Course: 11:19 Patient arrived in ED. mr 11:20 Stephan Lazo MD is Private Physician. mr 11:31 Rex Fitch MD is Attending Physician. boogie 11:32 Triage completed. hb 11:33 Arm band placed on. hb 11:46 Rashaad Friedman, RN is Primary Nurse. em 12:00 Patient has correct armband on for positive identification. Bed in low position. Call em light in reach. Side rails up X2. threat monitoring analyst on. Pulse ox on. NIBP on. 12:15 XRAY Chest (1 view) In Process Unspecified. EDMS 12:15 Initial lab(s) drawn, by me, sent to lab. T\T\S collected, blood band applied to patient. em Inserted saline lock: 20 gauge in right antecubital area, using aseptic technique. Blood collected. 13:29 Aime Green MD is Hospitalizing Provider. boogie 16:56 No provider procedures requiring assistance completed. Patient admitted, IV remains in em place. Administered Medications: 12:17 Drug: Pepcid 20 mg Route: IVP; Site: right antecubital; em 14:57 Follow up: Response: No adverse reaction em 12:20 Drug: Zofran (Ondansetron) 4 mg Route: IVP; Site: right antecubital; em 14:57 Follow up: Response: No adverse reaction; Marked relief of symptoms; Nausea is decreasedem 13:35 Drug: morphine 2 mg Route: IVP; Site: right antecubital; em 14:56 Follow up: Response: No adverse reaction; Marked relief of symptoms; Pain is decreased; em RASS: Alert and Calm (0) 13:37 Drug: Rocephin 1 grams Route: IV; Rate: per protocol; Site: right antecubital; em 14:57 Follow up: Response: No adverse reaction; IV Status: Completed infusion; IV Intake: 10mlem 13:39 Drug: Nitro-Bid Ointment 2 % 0.5 inches Route: Transdermal; Site: anterior chest wall; em 13:40 Drug: Aspirin 162 mg Route: PO; em 14:57 Follow up: Response: No adverse reaction em 14:00 Drug: Lasix 100 mg Route: IVP; Site: right antecubital; em 14:57 Follow up: Response: No adverse reaction em 14:04 Drug: Heparin (VT-Bolus No thrombolytic) - HEParin 60 units/kg {Co-Signature: [email or web address] em (Drake Castellano RN).} Route: IVP; Site: right antecubital; 14:56 Follow up: Response: No adverse reaction em 14:05 Drug: Heparin (VT Drip) 12 units/kg/hr - (HEParin 96695 units, D5W 500 ml) em {Co-Signature: [email or web address] (Drake Castellano RN).} Route: IV; Rate: calculated rate; Site: right antecubital; 17:01 Follow up: IV Status: Infusion continued upon admission em Intake: 14:57 IV: 10ml; Total: 10ml. em Outcome: 13:31 Decision to Hospitalize by Provider. boogie 14:30 Admitted to ICU em 14:30 Condition: stable 14:30 Instructed on the need for admit, Demonstrated understanding of instructions. 19:57 Patient left the ED. rv Signatures: Dispatcher [employer] Rex Bravo MD MD cha Rivera, Rashaad Leyva RN RN em Baxter, Heather, RN RN Drake Castellano RN RN jl7 Sy Hill, RN RN rv Drake Castellano RN jl7
[2020-01-21] MEDS ORDERED: ASPIRIN 81 MG CHEWABLE TABLET ONE (13:34)
[2020-01-21] MEDS ORDERED: NITROGLYCERIN 1 GM PKT TD ONE (13:35)
[2020-01-21] MEDS ORDERED: HEPARIN/D5W 25,000 UNIT/500 ML BAG IV ONE (13:35)
[2020-01-21] MEDS ORDERED: CEFTRIAXONE/SWI 1gm 1 GM/10 ML SYR ONE (13:35)
[2020-01-21] MEDS ORDERED: MORPHINE 2 MG/ML SYR ONE (13:35)
[2020-01-21] MEDS ORDERED: HEPARIN 5000 UNIT/ML 1 ML VIAL ONE (13:35)
[2020-01-21] MEDS ORDERED: FUROSEMIDE 100 MG/10 ML VIAL IV ONE (13:35)
[2020-01-21] MEDS ORDERED: MORPHINE 2 MG/ML SYR IV PRN (13:42)
[2020-01-21] MEDS ORDERED: ONDANSETRON 4 MG/2 ML VIAL IV PRN (13:42)
--- NOTE | 2020-01-21 13:52 | P.HP ---
Certification for Inpatient With expected LOS: >2 Midnights Patient will require the following post-hospital care: None Practitioner: I am a practitioner with admitting privileges, knowledge of patient current condition, hospital course, and medical plan of care. Services: Services provided to patient in accordance with Admission requirements found in Title 42 Section 412.3 of the Code of Federal Regulations Patient History Date of Service: 01/21/20 (Hospitalist) Reason for admission: Acute OH and CRF. Resp.Distress History of Present Illness: Patient is 84 years of age woke up this morning at on 8 o'clock complaining of chest pain felt really weak short of breath unable to urinate and appeared in the emergency room yesterday he was fine he has not been having any chest pain or any cardiac history was working out in his lawn no fever chills or cough he was in respiratory distress and a placed on BiPAP doing much better no pain her right now Allergies Penicillins Allergy (Verified 08/05/16 11:07) Itching/Hives/Rash Home Medications: Allopurinol 300 mg PO DAILY 08/05/16 Cholecalciferol (Vitamin D3) [Vitamin D 5,000 IU Cap*] 5,000 unit PO DAILY #30 cap 08/10/16 Isosorbide [place] (Bid) [Ismo 10 mg Tab*] 20 mg PO BID #60 tab 08/10/16 carvediloL [Coreg*] 12.5 mg PO BID 6AM 6PM #60 tab 08/10/16 Bumetanide 1 mg PO BID 12/24/16 Ciprofloxacin HCl [Cipro 500 MG Tablet] 500 mg PO DAILY 12/24/16 Clarithromycin [Biaxin] 500 mg PO DAILY 12/24/16 Darbepoetin Beny in Polysorbat [Aranesp] 60 mcg SQ EVERY 7TH DAY 12/24/16 Famotidine [Pepcid*] 20 mg PO DAILY 12/24/16 Ferrous Sulfate [Ferrous Sulfate*] 325 mg PO DAILY 12/24/16 Lactulose [Cephulac*] 20 mg PO DAILY 12/24/16 Sevelamer Carbonate [Renvela*] 800 mg PO TID 12/24/16 Sodium Bicarbonate 650 mg PO TID 12/24/16 - Past Medical/Surgical History Diabetic: Yes -: HTN -: Diabetes -: Gout - Social History Alcohol use: No CD- Drugs: No Caffeine use: Yes Review of Systems 10-point ROS is otherwise unremarkable Physical Examination - Vital Signs Temperature: 97.1 F Blood Pressure: 128/72 Pulse: 84 Respirations: 16 Pulse Ox (%): 100 - Physical Exam General: Alert, In no apparent distress, Oriented x3 HEENT: Other Respiratory: Clear to auscultation bilaterally Cardiovascular: Regular rate/rhythm, Normal S1 S2 Gastrointestinal: Normal bowel sounds, Soft and benign Musculoskeletal: No clubbing, No contractures Neurological: Normal speech, Normal strength at 5/5 x4 extr, Cranial nerves 3-12 intact - Studies Laboratory Data (last 24 hrs) 01/21/20 12:15: PT 11.9, INR 1.01 01/21/20 12:15: WBC 13.5 H, Hgb 11.1 L, Hct 33.2 L, Plt Count 259 01/21/20 12:15: Sodium 139, Potassium 5.0, BUN 78 H, Creatinine 10.10 H*, Glucose 283 H, Magnesium 3.0 H, Total Bilirubin 0.6, AST 41 H, ALT 19, Alkaline Phosphatase 105, Lipase 153 Assessment and Plan - Problems (Diagnosis) (1) Non-STEMI (non-ST elevated myocardial infarction) Current Visit: Yes Status: Acute Plan: Patient is 84 years of age admitted with acute OH non STEMI/EKG not available for review discuss with emergency room physician is troponin is elevated to 10 currently chest pain-free patient started on heparin received a dose of aspirin presumed carvedilol currently on BiPAP very comfortable requiring minimal oxygen chest x-ray shows some interstitial changes possibly some volume overload he has chronic renal insufficiency discuss with cardiology with hold Plavix for now schedule for a cardiac catheterization tomorrow patient is stable to go to the floor (2) CKD (chronic kidney disease) stage 5, GFR less than 15 ml/min Current Visit: No Status: Acute Plan: Patient has chronic renal failure scheduled to have dialysis - Advance Directives Does patient have a Living Will: No Does patient have a Durable POA for Healthcare: Yes
[2020-01-21] MEDS ORDERED: METOPROLOL XL 25 MG TAB PO SCH (14:01)
[2020-01-21 14:21] LABS: Arterial Blood Carboxyhemoglob 1.2 % (0-1.5); Blood Gas Oxyhemoglobin 91.1 % (94-97); Blood O2 Saturation 93.4 % (92-98.5)
[2020-01-21] MEDS: ISOSORBIDE MONO 10 MG TAB PO SCH ×2 (15:00→21:00)
[2020-01-21] MEDS: carvediloL 12.5 MG TAB PO SCH (15:00)
[2020-01-21] MEDS ORDERED: carvediloL 6.25 MG TAB ONE (15:45)
[2020-01-21] MEDS ORDERED: HEPARIN/D5W 25,000 UNIT/500 ML BAG IV SCH (16:00)
[2020-01-21] MEDS ORDERED: CLOPIDOGREL 75 MG TABLET ONE (18:55)
[2020-01-21] MEDS ORDERED: CLOPIDOGREL 75 MG TABLET PO ONE (19:11)
[2020-01-21 20:38] VITALS: O2SAT 100
--- NOTE | 2020-01-21 21:32 | CON ---
Date of Consultation: 01/21/2020 The patient was admitted on 01/21/[address] Green. I saw the patient on 01/21/2020. Reason For Consultation: Elevation of myocardial infarction. History Of Present Illness: Mr. Ray is 84, he has a history of diabetes, gout, end-stage renal di sease, on hemodialysis, hypertension, who came in with nausea, vomiting, diaphoresis, hypotension. H ad elevated troponin up to 15.40. His BNP was 1,17,349, creatinine of 10.10. He underwent dialysis today and post dialysis had significant chest pain with slight hypotension that has improved after ge ntle hydration. His troponin was elevated. His EKG showed, what appeared to be, anterolateral ische erin. The patient's pain decreased after aspirin and Plavix and heparin and morphine. He was practic ally pain-free in the emergency room before he was moved to the ICU for further evaluation and treatm ent. A heart catheterization was set up for 01/22/2020. Past Medical History: As stated above. Allergies: INCLUDE PENICILLIN. Review of Systems: Negative. Social History: Negative. Family History: Noncontributory. Medications: At home include Coreg, Norvasc, allopurinol, Renvela, isosorbide 20 b.i.d. Physical Examination: Vital Signs: Blood pressure is 93/54. Patient is no acute distress. Vital signs stable, afebrile, 95% O2 saturation on BiPAP. HEENT: Negative. Neck: Supple, no bruit. Chest: Clear. Cardiac: Revealed a regular rhythm and rate. No murmurs, gallops, or rubs. Abdomen: Benign. Extremities: Revealed no clubbing, cyanosis, or edema. He has a left AV fistula in the arm. Diagnostic Data: Listed earlier. Chest x-ray also showed, what appeared to be, slight bilateral pul monary edema versus infiltrate. Impression And Plan: 1.Non-ST elevation myocardial infarction on aspirin, Plavix, and heparin. 2.Hypotension secondary to ischemia and hemodialysis, improved. 3.End-stage renal disease, on hemodialysis. 4.Diabetes. 5.Gout. The patient is already given a load of Plavix 300 mg and aspirin. He is on heparin. We will avoid b eta blockers at this point. I am sure eventually he will need statins and maybe a low-dose beta-bloc ker. But for now, we will plan a left heart catheterization with selective coronary arteriogram in t he morning to define his coronary anatomy and perform interventions as indicated. ISAÍAS/BONILLA Voice ID: [id number] Report ID: [id number]
[2020-01-21 23:23] VITALS: BMI 25.2
[2020-01-22] MEDS: carvediloL 12.5 MG TAB PO SCH ×3 (03:43→06:00)
[2020-01-22 06:02] LABS: Absolute Lymphocytes (CBC) 1.4 K/uL (0.7-4.9); Basophils % 0.9 % (0-1.3); Hematocrit 33.4 % (39.6-49.0); Lymphocytes % 10.3 % (15.3-44.8); MPV 9.8 fL (7.6-11.3); RBC Red Blood Cell Count 3.42 M/uL (4.33-5.43)
[2020-01-22] MEDS ORDERED: NA CHLORIDE 0.9% 500 ML ONE (06:05)
[2020-01-22] MEDS ORDERED: HEPA 1000U/500MLS 2,000 UNIT/1,000 ML BAG IV ONE (06:07)
[2020-01-22] MEDS ORDERED: FENTANYL CITR 100 MCG/2 ML ONE (06:18)
[2020-01-22] MEDS ORDERED: FLUMAZENIL 0.1 MG/ML (5 mL VIAL) IV ONE (06:18)
[2020-01-22] MEDS ORDERED: MIDAZOLAM HCL 2 MG/2 ML INJ ONE (06:18)
[2020-01-22] MEDS ORDERED: NITROGLYCERIN 100 MCG/ML SYR (for cath lab use only) IV ONE (06:18)
[2020-01-22] MEDS ORDERED: ATROPINE SULF 1 MG/10 ML SYR IV ONE (06:18)
[2020-01-22] MEDS ORDERED: NITROGLYCERIN/D5W 25 MG/250 ML BTL IV ONE (06:19)
[2020-01-22] MEDS ORDERED: NA CHLORIDE 0.9% 0 ML ONE (06:19)
[2020-01-22 06:38] LABS: Albumin 3.2 g/dL (3.4-5.0); Bilirubin Total 0.7 mg/dL (0.2-1.0); Potassium 4.8 mmol/L (3.5-5.1); Protein, Total 7.8 g/dL (6.4-8.2)
[2020-01-22] MEDS ORDERED: NICARDIPINE HCL 25 MG/10 ML IV ONE (07:05)
[2020-01-22] MEDS ORDERED: HEPARIN 5000 UNIT/ML 1 ML VIAL ONE ×4 (07:05→08:31)
--- NOTE | 2020-01-22 08:40 | RAD REPORT ---
EXAM DESCRIPTION: RAD - Chest Single View - 01/22/2020 8:32 am CLINICAL HISTORY: resp failure Chest pain. COMPARISON: Chest Single View dated 01/21/2020; Chest Single View dated 11/08/2016; Chest Single View dated 08/05/2016; CHEST SINGLE VIEW dated 08/02/2008 FINDINGS: Portable technique limits examination quality. Since 01/21/2020, mild worsening areas of lung infiltrate in the right lung seen. Left lung appears g rossly clear. The heart is moderately enlarged. No displaced fractures. IMPRESSION: Mild worsening in right lung aeration is seen since comparative study.
[2020-01-22] MEDS: ISOSORBIDE MONO 10 MG TAB PO SCH (09:00)
--- NOTE | 2020-01-22 09:23 | P.DS ---
Admission Date: 01/21/20 Discharge Date: 01/22/20 Primary Care Provider: Dr. Lazo; Nephrology-Dr. Juarez Disposition: TRANSFER TO [facility] Discharge Condition: GOOD Reason for Admission: Acute MA and CRF. Resp.Distress Consultations: Cardiology-Dr. Lang Nephrology-Dr. Juarez Procedures: Heart Cath: Heart catheterization abnormal. Significant abnormality to the LAD. Patient requiring transfer for CABG. Medical Problem List: Chest pain/shortness of breast secondary to NSTEMI and suspect acute on chronic diastolic CHF status post heart catheterization showing severe CAD recurring transfer for CABG Hypertension End-stage renal disease on hemodialysis Diabetes mellitus type 2 Gout Brief History of Present Illness: 84-year-old male with history of diabetes mellitus type 2, gout, end- stage renal disease on hemodialysis, hypertension and chronic diastolic CHF. Shakir morrell presented with chest pain and shortness of breath. Patient was hypotensive with diaphoresis. Patient admitted for NSTEMI. Hospital Course: Patient presented with chest pain and shortness of breath. This was secondary to NSTEMI and suspected acute on chronic diastolic CHF. Patient was admitted for further evaluation. Cardiology recommended heart catheterization. Heart catheterization performed showed severe CAD. Cardiology recommends transfer to higher level center for CABG. Arrangements for transfer to [facility] have been initiated. Await acceptance and transfer. Also spoke to Nephrology as the patient has underlying end-stage renal disease on hemodialysis. Blood pressure has been low. Patient will will require continuous renal replacement therapy due to low blood pressure. This can be further addressed at [facility]. Patient with underlying diabetes mellitus type 2. This appears to be diet controlled. Will recommend A1c and close monitoring. Patient with hypertension. As mentioned above blood pressures have remained low. Continue to hold hypertensive medication-Norvasc and carvedilol. Patient with gout. Patient may continue with allopurinol. Vital Signs/Physical Exam: Temp Pulse Resp BP Pulse Ox 96.9 F 75 16 102/62 98 01/22/20 04:00 01/22/20 06:00 01/22/20 06:00 01/22/20 06:00 01/22/20 06:00 General: Alert HEENT: Atraumatic Neck: Supple Respiratory: Clear to auscultation bilaterally, Normal air movement Cardiovascular: Normal pulses, Regular rate/rhythm Gastrointestinal: Normal bowel sounds, No tenderness, No masses, No rebound, No guarding Musculoskeletal: No tenderness, No warmth Integumentary: No tenderness/swelling, No erythema Neurological: Normal speech, Normal strength at 5/5 x4 extr, Normal tone, Normal affect Laboratory Data at Discharge: WBC 13.1 K/uL (4.3-10.9) H 01/22/20 05:29 Hgb 10.9 g/dL (13.6-17.9) L 01/22/20 05:29 Hct 33.4 % (39.6-49.0) L 01/22/20 05:29 Plt Count 219 K/uL (152-406) 01/22/20 05:29 PT 11.9 SECONDS (9.5-12.5) 01/21/20 12:15 INR 1.01 01/21/20 12:15 APTT 55.2 SECONDS (24.3-36.9) H 01/22/20 05:29 Sodium 138 mmol/L (136-145) 01/22/20 05:29 Potassium 4.8 mmol/L (3.5-5.1) 01/22/20 05:29 BUN 72 mg/dL (7-18) H 01/22/20 05:29 Creatinine 8.59 mg/dL (0.55-1.3) H* D 01/22/20 05:29 Glucose 132 mg/dL (74-106) H 01/22/20 05:29 Magnesium 3.0 mg/dL (1.8-2.4) H 01/21/20 12:15 Total Bilirubin 0.7 mg/dL (0.2-1.0) 01/22/20 05:29 AST 497 U/L (15-37) H* D 01/22/20 05:29 ALT 61 U/L (12-78) 01/22/20 05:29 Alkaline Phosphatase 92 U/L (45-117) 01/22/20 05:29 Troponin I > 200.00 ng/mL (0.0-0.045) H* D 01/22/20 05:29 Lipase 153 U/L (73-393) 01/21/20 12:15 Home Medications: Allopurinol 100 mg PO DAILY 08/05/16 carvediloL [Coreg*] 12.5 mg PO BID 6AM 6PM #60 tab 11/28/16 Sevelamer Carbonate [Renvela*] 5 tab PO TIDWM 12/24/16 Amlodipine [Norvasc*] 1 tab PO DAILY 01/21/20 Patient Discharge Instructions: Patient will be transferred to [facility] for high-level care-CABG. Cardiology has spoken to cardiovascular surgery. Case also discuss with nephrology. Due to low blood pressure, Patient will require continuous renal replacement therapy. This can be further addressed at [facility]. Diet: Renal Activity: Bedrest Time spent managing pt's care (in minutes): 55
--- NOTE | 2020-01-22 09:33 | OP ---
Date of Procedure: 01/22/2020 Surgeon: JUSTIN WILLIAM Name Of Procedure: Selective coronary angiogram. Indication: Non-ST elevation myocardial infarction. Learning And Development Intern: Aaron Lang MD. Secondary Distributor Operator: Justin William. Access: Right femoral artery 6-Malawian. Closure: StarClose. Complications: None. Bleeding: Less than 10 mL. Description Of Procedure: The patient was brought into the cardiac catheterization laboratory after an informed consent was signed. The patient was prepped and draped in usual sterile fashion and then using fentanyl and Versed in incremental doses, adequate amount of sedation was achieved. Subsequen tly, the right femoral artery landmarks were identified and then accessed under fluoroscopy guidance after using lidocaine to anesthetize the skin and the subcutaneous tissue. 6-Malawian [place] sheath was inserted. Then, we took a 6-Malawian JL-4 catheter over the J-wire into the aortic root. Selectiv vonda engaged the left main coronary artery and obtained the standard views. Then, we exchanged over t he wire through the JR4 catheter, selectively engaged the right coronary artery, and obtained the sta ndard views. Then, all wires and catheters were removed and selective injection of the groin showed a good entry point. Then, we proceeded with closure using StarClose technique without any complicati ons. Findings: 1.Left main is large. No significant disease. 2.LAD: There is ostial 95% stenosis, likely the culprit of this myocardial infarction and then subs equently, there are multiple lesions and diffuse disease involving the mid segment to the distal port ion of the LAD. However, there is a ADITI-3 flow in the artery. 3.There is a large ramus intermedius artery with a 20% ostial disease. 4.Left circumflex has 20% disease ostially, otherwise no significant disease. 5.The RCA is a dominant vessel with mild diffuse disease. Impression: Severe ostial left anterior descending artery stenosis along with moderate diffuse disea se in the mid and distal segment. Recommendations: Evaluation by CT Surgery for possible PEARSON to LAD. If not a candidate for surgery, the patient will need high-risk PCI. For that reason, we will transfer the patient to higher level of care facility for the above. SR/MODL Voice ID: [id number] Report ID: [id number]
[2020-01-22] MEDS ORDERED: NA CHLORIDE 0.9% 250 ML IV ONE (10:01)
[2020-01-22] MEDS ORDERED: NA CHLORIDE 0.9% 250 ML ONE (10:21)
[2020-01-22 10:33] LABS: Potassium 5.7 mmol/L (3.5-5.1)
[2020-01-22 11:24] VITALS: BP 88/54
[2020-01-22] MEDS ORDERED: SEVELAMER CARBONATE 800 MG TABLET PO SCH (12:00)
[2020-01-22 12:25] VITALS: TEMP 97.4
--- NOTE | 2020-01-22 18:46 | EKG ---
Test Date: 2020-01-21 Test Time: 18:30:19 Diesel Machinist: CAMMIE MEASUREMENT RESULTS: Intervals: Rate: 59 NM: 172 QRSD: 100 QT: 520 QTc: 514 [place]: P: 57 NM: 172 QRS: 69 T: 65 INTERPRETIVE STATEMENTS: Sinus bradycardia Low voltage QRS Anterior infarct, possibly acute T wave abnormality, consider lateral ischemia Prolonged QT ACUTE PA Abnormal ECG Compared to ECG 01/21/2020 11:55:29 Low QRS voltage now present T-wave abnormality now present Possible ischemia now present Prolonged QT interval now present Myocardial infarct finding still present Electronically Signed On 01-22-20 18:44:31 CDT by Aaron Lang
--- NOTE | 2020-01-22 18:48 | EKG ---
Test Date: 2020-01-21 Test Time: 11:55:29 Sample Case Porter: ROCIO MEASUREMENT RESULTS: Intervals: Rate: 92 IA: 162 QRSD: 174 QT: 442 QTc: 546 [place]: P: 79 IA: 162 QRS: -80 T: 83 INTERPRETIVE STATEMENTS: Normal sinus rhythm Right bundle branch block Left anterior fascicular block Bifascicular block Anteroseptal infarct, age undetermined Abnormal ECG Compared to ECG 11/08/2016 16:04:47 Right bundle-branch block now present Left anterior fascicular block now present Bifascicular block now present Myocardial infarct finding now present Prolonged QT interval no longer present Electronically Signed On 01-22-20 18:44:38 CDT by Aaron Lang
--- NOTE | 2020-01-23 00:08 | CON ---
Date of Consultation: 01/22/2020 Chief Complaint: End-stage renal disease, on dialysis. History Of Present Illness: Patient has multiple medical problems including history of end-stage mendoza al disease, on dialysis. He has been dialyzed 3 times per week on Wednesday, Wednesday, and Wednesday. He is an 84-year-old man with history of diabetes mellitus, diabetic kidney disease, gout, end-stage re nal disease due to hypertension and diabetes. He has been dialyzed 3 times per week. He was admitte d to the hospital because of nausea, vomiting, and atypical chest pain. He developed hypotension, wa s found to have elevated troponin up to 15.4 and BNP was elevated up to . The patient was scheduled today to have cardiac catheterization and had procedure done with IV contrast. After proce dure, potassium level was 5.8. Patient was to have dialysis, although patient developed hypotension and the patient was transferred to higher level of care by arts administrator or manager for possible bypass. He was found to have severe coronary artery disease and he was referred for emergent bypass procedure. Review of Systems: Unobtainable, the patient is somewhat lethargic. Past Medical History: Hypertension, end-stage renal disease, diabetes mellitus, coronary artery dise ase, anemia, , renal osteodystrophy, hypertensive heart and kidney disease, previous proced ure for coronary artery disease. Social History: Denies tobacco, alcohol, or illicit drugs. Family History: No kidney disease in the family. Physical Examination: Vital Signs: Blood pressure is 93/54, heart rate is 86, SpO2 95%. Patient was on BiPAP. Eyes: Anicteric sclerae. EOMI. Ears, Nose, Mouth and Throat: Oral mucosa moist. No pallor. Neck: Supple, no bruits. Lungs: Diminished breath sounds at bases, few crackles. Heart: S1, S2. No pericardial friction rub. Abdomen: Soft, benign, nontender. Extremities: No clubbing, no cyanosis. Left arm AV fistula present. Skin: Warm and dry. No skin rashes. Laboratory Data: Hemoglobin 10.9, WBC 13.1, platelet count 219,000. Blood work before procedure: S odium 138, potassium 4.8, chloride 102, CO2 22, BUN 72, creatinine 8.59, calcium 8.8, AST 497, tropon in . Today blood work after IV contrast procedure showed sodium 137, potassium 5.7, CO2 is 23, chloride 102, BUN 73, creatinine 9.02, glucose 144. Impression And Plan: 1.End-stage renal disease. Patient will need a continuous venovenous hemodialysis. Patient is elliott sferred for higher level of care. Potassium level is acceptable ranges. Continue to monitor and ricardo at, potassium is elevated over 6. The patient will need dialysis for metabolic clearance, but due to hypotension he will need to have continuous venovenous hemodialysis and tunneled dialysis catheter o r temporary dialysis catheter placement. 2.The patient underwent cardiac catheterization and is to have emergent bypass. He will be transfer red to higher level of care. 3.Hypotension. Continue to monitor and start pressors as needed. 4.Renal osteodystrophy. Monitor phosphorus level and adjust binders. 5.Anemia and chronic kidney disease. Hemoglobin level is satisfactory. 6.Leukocytosis. Monitor blood culture, rule out endocarditis. EB/MODL Voice ID: [id number] Report ID: [id number]
[2020-01-23] MEDS ORDERED: allopurinoL 100 MG TAB PO SCH (09:00)
== END 2020-01-22 11:28 | disposition short-term general hospital (02) | DRG 280 ==
LOC: ER 11:16 → SUPCPDRO 11:16 → ERHOLD 13:43 → 3RD-ICU 19:37
PROVIDERS: ADMIT Internal Medicine Sleep Medicine; ATTEND Family Medicine
PROC: 5A1D70Z Performance of Urinary Filtration, Intermittent, Less than 6 Hours Per Day (ICD-10-PCS; 2020-01-21)
PROC: 4A023N7 Measurement of Cardiac Sampling and Pressure, Left Heart, Percutaneous Approach (ICD-10-PCS; principal; 2020-01-22)
PROC: B2111ZZ Fluoroscopy of Multiple Coronary Arteries using Low Osmolar Contrast (ICD-10-PCS; 2020-01-22)
DX: I21.4 Non-ST elevation (NSTEMI) myocardial infarction (principal); N18.6 End stage renal disease; I50.33 Acute on chronic diastolic (congestive) heart failure; I13.2 Hypertensive heart and chronic kidney disease with heart failure and with stage 5 chronic kidney disease, or end stage renal disease; M10.9 Gout, unspecified; I95.9 Hypotension, unspecified; I99.8 Other disorder of circulatory system; E11.22 Type 2 diabetes mellitus with diabetic chronic kidney disease; N25.0 Renal osteodystrophy; D63.1 Anemia in chronic kidney disease; D72.829 Elevated white blood cell count, unspecified; Z88.0 Allergy status to penicillin; Z99.2 Dependence on renal dialysis; Z79.899 Other long term (current) drug therapy
CPT/HCPCS: 36415; 71045; 80048; 80053; 80076; 82805; 82947; 83690; 83735; 83880; 84145; 84484; 85025; 85610; 85730; 86850; 86900; 86901; 87040; 93005; 93454; 94660; 94760; 96365; 96366; 96375; 99285; C1893; J0583; J0696; J1644; J2250; J2270; J2405; J3010; J7030; J7040

== ENCOUNTER 2020-03-30 21:23 | Emergency (ER) | payer OTHER ==
--- OUTSIDE RECORDS SUMMARY | 2020-03-30 21:25 | XMS REPORT | Clinical Summary ---
:1935 Author Organization [facility] Address [address] [place] [address] Care Team Providers Name Role Phone MD [...] Added automatically from request for betsy marquez [id number] ESRD (end stage renal disease) 201612/09/2016 Encounter [...] INFLUENZA VACCINE 04/13/2020 Implants Implanted Type Area Media Monitor Device Shelf Model / Identifier Expiration Serial / Date Lot Catheter Dialysis Glidepath [id number] Symmetric Tip - [id number] Implantable N/A: N/A BARD PERIPHERAL 06/12/2018 [id number] / Implanted: 12/09/2016 at [facility] (Quantity not on file) Inf usion Ports VASCULAR / or Accessories [id number] Catheter Dialysis Glidepath [id number] Symmetric Tip - [id number] Implantable Left: BARD PERIPHERAL 02/10/2019 [id number] / Implanted: Qty: 1 on 07/06/2017 by Cira Arrieta MD at [facility] Infusion Ports Chest VASCULAR / or Accessories [id number] Clip Ligtng Weck Hemoclip Plus W/ Tape Ti Sm - [id number] Medical Clips Left: WECK CLOSURE 07/14/2021 [id number] / Implanted: Qty: 2 on 02/04/2017 by Sachin Acevedo MD at [facility] for Internal Arm, SYSTEMS / Use Lower [id number] Clip Ligtng Weck Hemoclip Plus W/ Tape Ti Med - [id number] Medica l Clips Left: TELEFLEX 09/17/2021 [id number] / Implanted: Qty: 2 on 02/04/2017 by Sachin Acevedo MD at [facility] for Internal Arm, MEDICAL / Use Lower [id number] Clip Ligtng Weck Hemoclip Plus W/ Tape Ti Sm - [id number] Medical Clips Left: WECK CLOSURE 01/28/2022 [id number] / Implanted: Qty: 1 on 06/22/2017 by Cira Arrieta MD at [facility] for Internal Arm, SYSTEMS / Use Lower [id number] Clip Ligtng Weck Hemoclip Plus W/ Tape Ti Med - [id number] Medica l Clips Left: TELEFLEX [id number] / Implanted: 06/22/2017 at [facility] (Quantity not on file) for Internal Arm, MEDICAL / Use Lower Catheter Emboltmy 1lmn Baln 4fr 80cm 10.5mm 0.75ml Ltx - [id number] Surgical Left: CUENCA [id number] / Implanted: Qty: 1 on 06/22/2017 by Cira Arrieta MD at [facility] Implants; Arm LIFESCIENCES / Expanders; [id number] Extenders; Surgical Wires Catheter Steam Clothes Press Operator 4x75cm 6mm Conquest - [id number] Surgical Left: BARD PERIPHERAL [id number] / Implanted: Qty: 1 on 06/22/2017 by Cira Arrieta MD at [facility] Implants; Arm VASCULAR / Expanders; [id number] Extenders; Surgical Wires Catheter Emboltmy Otw Thru-Lmn 5.5fr 80cm Fgrty - [id number] Surg ical Left: CUENCA [id number] / Implanted: Qty: 1 on 06/22/2017 by Cira Arrieta MD at [facility] Implants; Arm LIFESCIENCES / Expanders; [id number] Extenders; Surgical Wires Catheter Emboltmy Aleida 5fr 80cm Artrl Tube Pack - [id number] S urgical Left: CUENCA [id number] / Implanted: Qty: 1 on 06/22/2017 by Cira Arrieta MD at [facility] Implants; Arm LIFESCIENCES / Expanders; [id number] Extenders; Surgical Wires Graft Accuseal 45cm 4-7mm Tapered - [id number] Vascular Graft Left: W Carlitos GORE 07/07/2019 [id number] / Implanted: 02/04/2017 at [facility] (Quantity not on file) Arm, [id number] / Lower [id number] Results Not on fileafter 03/30/2019 Insurance Payer Benefit Plan / Subscriber ID Effective Dates Phone Addre ss Type Group MEDICARE MEDICARE PART A xxxxxxxxxx 2001-Present GILBERTO ANDREWS Medicare AND B Advance Directives For more information, please contact: [phone] Type Date Recorded Patient Management Psychologist Explanati on Advance Directives, Living Will 02/04/2017 8:02 AM and Medical Power of [place] Manager Advance Directives, Living Will 12/08/2016 11:01 AM and Medical Power of [place] Manager Code Status Date Activated Date Inactivated Comments Full Code 12/08/2016 4:50 PM 12/14/2016 6:23 PM Code Status decision reached by: Patient Full Code 12/08/2016 3:39 PM 12/08/2016 4:50 PM Code Status decision reached by: Patient Full Code 12/08/2016 10:06 AM 12/08/2016 3:39 PM Code Status decision reached by: Patient
--- OUTSIDE RECORDS SUMMARY | 2020-03-30 21:30 | XMS REPORT | Clinical Summary ---
:1935 Author Organization [facility] Address [address] [place] [address] Care Team Providers Name Role Phone Hugo Browning Primary Care Provider Unavailable Jonathan Garza Unavailable Allergies Active Allergy Reactions Severity Noted Date Comments Penicillins Rash Low 11/02/2016 Medications Medication Sig Dispensed Refills Start End Date Status Date allopurinoL Take 1 tablet (100 0 02/23/20 Active (ZYLOPRIM) 100 MG mg total) by mouth 0 21 tablet daily. ferrous sulfate 325 Take 1 tablet (325 0 Active (65 FE) MG tablet mg total) by mouth 0 daily with breakfast. acetaminophen Take 2 tablets 30 tablet 0 02/18/20 A ctive (TYLENOL) 325 MG (650 mg total) by 0 21 tablet mouth every 4 (four) hours as needed for Fever (Rectal temperature greater than 101.3 degree fahrenheit) for up to 360 days. amiodarone Take 1 tablet (200 0 02/23/20 Active (PACERONE) 200 MG mg total) by mouth 0 21 tablet daily. aspirin 81 MG Take 1 tablet (81 0 02/23/20 Active chewable tablet mg total) by mouth 0 21 daily. atorvastatin Take 1 tablet (40 0 02/23/20 Active (LIPITOR) 40 MG mg total) by mouth 0 21 tablet nightly. DOBUTamine Inject 158.25 250 mL 0 Activ e (DOBUTREX) 1,000 mcg/min 0 mg/250 mL (4,000 intravenously mcg/mL) infusion continuous. epoetin daren-epbx Inject 1 mL 0 Active (RETACRIT) 10,000 (10,000 Units 0 unit/mL Soln total) injectionIndication subcutaneously 3 s: anemia in (three) times a chronic kidney week at bedtime disease MON/WED/FRI. folic Take 1 tablet by 0 Act kayleigh acid-multivitamins mouth daily. 0 (NEPHRO-DANIELLE) 0.8 mg Tab tablet insulin lispro Inject 0-8 Units 10 mL 0 02/23/20 Active (HUMALOG) 100 subcutaneously as 0 21 unit/mL injection needed (High blood sugar). melatonin 5 mg Tab Take 1 tablet (5 0 Active tablet mg total) by mouth 0 every night as needed. nitroglycerin Put 1 pill under 90 tablet 0 02/23/20 Active (NITROSTAT) 0.4 MG tongue every 5min 0 21 SL tablet as needed for chest pain.No more than 3 doses in 15min.Call 911 if pain unrelieved 5min after 1st dose. nystatin Apply topically 2 15 g 0 02/23/20 Ac tive (MYCOSTATIN) (two) times daily. 0 21 100,000 unit/gram powder senna-docusate Take 1 tablet by 0 02/23/20 Active (SENOKOT S) 8.6-50 mouth 2 (two) 0 21 mg per tablet times daily. warfarin (COUMADIN, Take 1 tablet (1 0 Active JANTOVEN) 1 MG mg total) by mouth 0 21 tablet daily. sodium bicarbonate Take 1 tablet by 0 /11/02 Discontinued 650 MG tablet mouth 3 (three) 20 times daily. bumetanide (BUMEX) Take 1 mg by mouth 0 Discontinued 1 MG tablet 2 (two) times 20 daily. cholecalciferol, Take 5,000 Units 0 Discontinued vitamin D3, 5,000 by mouth daily. 20 unit Tab allopurinol Take 300 mg by 0 02/23/20 Dis continued (ZYLOPRIM) 300 MG mouth daily. 20 tablet carvedilol (COREG) Take 25 mg by 0 05/12/2 0 Discontinued 12.5 MG tablet mouth 2 (two) 20 times daily with breakfast and dinner. ferrous sulfate 325 Take 325 mg by 0 02/22 Discontinued (65 FE) MG tablet mouth daily with [address] rectally 2 30 g 0 03/04/20 (ANUSOL-HC) 2.5 % (two) times daily 0 20 rectal cream for 10 days. midodrine Take 1 tablet (5 0 03/24/20 Exp ired (PROAMATINE) 5 MG mg total) by mouth 0 20 tablet every 8 (eight) hours for 30 days. ondansetron Take 1 tablet (4 20 tablet 0 03/01/20 E xpired (ZOFRAN-ODT) 4 MG mg total) by mouth 0 20 disintegrating every 6 (six) tablet hours as needed for up to 7 days. polyethylene glycol Take 17 g by mouth 14 each 0 0 02/26/20 (GLYCOLAX) 17 gram 2 (two) times 0 20 packet daily for 3 days. warfarin (COUMADIN, Take 1 tablet (2 0 Discontinued JANTOVEN) 2 MG mg total) by mouth 0 20 tablet daily. Active Problems Problem Noted Date Acute post-operative pain 01/26/2020 Cardiogenic shock 01/26/2020 Left ventricular failure 01/26/2020 On intra-aortic balloon pump assist 01/26/2020 Shock liver 01/26/2020 Fluid overload 01/26/2020 SIRS (systemic inflammatory response syndrome) 020 Chronotropic incompetence 01/26/2020 S/P placement of cardiac pacemaker 01/26/2020 S/P CABG x [address] Augustine on 01/23/2020 01/23/2020 S/P CABG x 1 01/23/2020 CAD (coronary artery disease) 01/22/2020 ESRD needing dialysis 11/09/2016 Acute renal failure, unspecified acute renal failure t ype 11/02/2016 CKD (chronic kidney disease) stage 5, GFR less than 15 ml/min 11/02/2016 HTN (hypertension) 11/02/2016 DM (diabetes mellitus) 11/02/2016 ESRD (end stage renal disease) Gout Vasogenic shock Acute systolic heart failure Acute respiratory insufficiency Acute blood loss anemia Hyperglycemia Accelerated idioventricular rhythm Hypotension, unspecified hypotension type Ischemic cardiomyopathy Encounters Date Type Specialty Care Team Description 01/26/2020 Anesthesia Event Shyann Warner MD 01/26/2020 Surgery ALBERTO Fisher GENERATOR & MD Stew LEADS - INSERTI ON W/ MAC ANESTHESIA (SING/DUAL/MULT ) 01/23/2020 Surgery Fawn, BYPASS,AORTO Bismark Cabrera, CORONARY ALIA /SVG 01/23/2020 Anesthesia Event Abhishek Segura AA 01/22/2020 - Hospital Encounter Cardiology Lan Briones, [place] ry artery disease involving [place] coronary artery of [place] heart, angina presence unspecified (Primary Dx); 02/28/2020 Acute blood loss anemia; Fawn, Acute post-oper ative pain; Bismark Cabrera, Acute respir atory insufficiency; Cardiogenic shock ([facility]); Betsy Messina ESRD needing d ialysis ([facility]); MD Zonia Other hypervolemia; Osman Wylie, Hyperglycemi a; Ischemic cardiomyopathy; Romina Zhang Left ventricu lar failure ([facility]); MD Chaim On intra-aortic balloon pump assist; S/P CABG x 1; Shock liver; SIRS (systemic inflammatory response syndrome) ([facility]); Chronotropic in competence; S/P placement o f cardiac pacemaker 01/22/2020 Travel 01/22/2020 Orders Only General Internal Medicine after 03/30/2019 Family History Medical History Relation Name Comments No Known Problem Father Diabetes Mother Kidney disease Mother Relation Name Status Comments Father Mother Social History Tobacco Use Types Packs/Day Years Used Date Never Smoker Alcohol Use Drinks/Week oz/Week Comments No Sex Assigned at Date Recorded Not on file Job Start Date Occupation Industry Not on file Not on file Not on file Travel History Travel Start Travel End No recent travel history available. Last Filed Vital Signs Vital Sign Reading Time Taken Blood Pressure 107/52 02/28/2020 2:43 PM CDT Pulse 80 02/28/2020 2:43 PM CDT Temperature 36.7 C (98.1 F) 02/28/2020 2:43 PM CDT Respiratory Rate 16 02/28/2020 2:43 PM CDT Oxygen Saturation 98% 02/28/2020 2:43 PM CDT Inhaled Oxygen Concentration 50% 01/25/2020 3:00 AM CDT Weight 68.5 kg (151 lb 0.2 oz) 02/28/2020 7:59 AM CDT Height 167.6 cm (5' 6") 02/07/2020 7:00 PM CDT Body Mass Index 24.37 02/28/2020 7:59 AM CDT Plan of Treatment Not on file Implants Implanted Type Area Computer Typesetter Device Shelf Model / Identifier Expiration Serial / Date Lot Cath Estefania Dlys 2 Cuf Curl 62cm [id number] - [id number] Catheter N/A: COVIDIEN:TARAN 04/29/2021 [id number] / Implanted: Qty: 1 on 11/04/2016 by Alva Chowdary MD Dialysis Abdo men LL / [employer] [id number] Ld Endocardial Df4 Act 55 6935m-55 - [id number] IMPLANTS Right : MEDTRONIC:CARD [id number] 11/03/2021 [id number] / Implanted: Qty: 1 on 01/26/2020 by Stew Fisher MD Heart RHY:DISEASE [id number] / MGT Lead Select Secure 69cm [id number] - [id number] PACEMAKER/ Right: MEDTRONIC:CARD [id number] 09/29/2021 [id number] / Implanted: Qty: 1 on 01/26/2020 by Stew Fisher MD ICD BI Heart RHY:DISEASE [id number] / VALVE MGT DEVICE Lead Pacemkr Capsur Novus 45cm 5076-45 - [id number] PACEMAKER/ Right: MEDTRONIC:CARD [id number] 11/06/2021 5076-45 / Implanted: Qty: 1 on 01/26/2020 by Stew Fisher MD ICD Heart RHY:DISEASE [id number] / CHAMBER MGT DEVICE Crtd Claria Mri Us Df4 [id number] - [id number] PACEMAKER/ Right: MEDTRONIC:CARD [id number] 05/27/2020 [id number] / Implanted: Qty: 1 on 01/26/2020 by Stew Fisher MD ICD Heart RHY:DISEASE [id number] / CHAMBER MGT DEVICE Procedures Procedure Name Priority Date/Time Associated Comments Diagnosis RHYTHM STRIP - SCAN 03/01/2020 11:05 AM CDT RHYTHM STRIP - SCAN 03/01/2020 11:05 AM CDT RHYTHM STRIP - SCAN 03/01/2020 11:05 AM CDT REPORT OF PROCEDURE - 03/01/2020 11:05 ENDOSCOPY SCAN AM CDT ARRYTHMIA IMPLANT 03/01/2020 11:05 Result s for this REPORT - SCAN AM CDT procedure are in the results section. VASCULAR DIAGRAM -SCAN 03/01/2020 11:04 AM CDT CARDIAC CATH REPORT - 03/01/2020 11:04 SCAN AM CDT POCT-GLUCOSE METER Routine 02/28/2020 11:26 Resul ts for this AM CDT procedure are i n the results section. POCT-GLUCOSE METER Routine 02/28/2020 7:12 Resul ts for this AM CDT procedure are i n the results section. BASIC METABOLIC PANEL Routine 02/28/2020 4:29 Re sults for this (7) AM CDT procedure are i n the results section. PROTHROMBIN TIME/INR Routine 02/28/2020 4:29 Res ults for this AM CDT procedure are i n the results section. CBC (HEMOGRAM ONLY) Routine 02/28/2020 4:29 Resu lts for this AM CDT procedure are i n the results section. POCT-GLUCOSE METER Routine 02/27/2020 9:03 Resul ts for this PM CDT procedure are i n the results section. POCT-GLUCOSE METER Routine 02/27/2020 4:58 Resul ts for this PM CDT procedure are i n the results section. LIMITED 2D Routine 02/27/2020 3:35 Results for this ECHOCARDIOGRAM PM CDT procedure are in the results section. POCT-GLUCOSE METER Routine 02/27/2020 12:15 Resul ts for this PM CDT procedure are i n the results section. POCT-GLUCOSE METER Routine 02/27/2020 7:10 Resul ts for this AM CDT procedure are i n the results section. PROTHROMBIN TIME/INR Routine 02/27/2020 6:07 Res ults for this AM CDT procedure are i n the results section. BASIC METABOLIC PANEL Routine 02/27/2020 4:56 Re sults for this (7) AM CDT procedure are i n the results section. CBC (HEMOGRAM ONLY) Routine 02/27/2020 4:56 Resu lts for this AM CDT procedure are i n the results section. POCT-GLUCOSE METER Routine 02/26/2020 9:08 Resul ts for this PM CDT procedure are i n the results section. HEMODIALYSIS INPATIENT Routine 02/26/2020 8:30 R esults for this PM CDT procedure are i n the results section. POCT-GLUCOSE METER Routine 02/26/2020 11:50 Resul ts for this AM CDT procedure are i n the results section. POCT-GLUCOSE METER Routine 02/26/2020 8:03 Resul ts for this AM CDT procedure are i n the results section. POCT-GLUCOSE METER Routine 02/26/2020 7:21 Resul ts for this AM CDT procedure are i n the results section. BASIC METABOLIC PANEL Routine 02/26/2020 3:35 Re sults for this (7) AM CDT procedure are i n the results section. PROTHROMBIN TIME/INR Routine 02/26/2020 3:35 Res ults for this AM CDT procedure are i n the results section. CBC (HEMOGRAM ONLY) Routine 02/26/2020 3:35 Resu lts for this AM CDT procedure are i n the results section. ARTERIAL DOPPLER LEG, Routine 02/25/2020 11:32 Re sults for this LEFT PM CDT procedure are i n the results section. ARTERIAL (RAYMOND'S W/ Routine 02/25/2020 11:10 Resul ts for this DOPPLER) ONLY PM CDT procedure are in the results section. POCT-GLUCOSE METER Routine 02/25/2020 9:04 Resul ts for this PM CDT procedure are i n the results section. POCT-GLUCOSE METER Routine 02/25/2020 4:50 Resul ts for this PM CDT procedure are i n the results section. POCT-GLUCOSE METER Routine 02/25/2020 11:49 Resul ts for this AM CDT procedure are i n the results section. POCT-GLUCOSE METER Routine 02/25/2020 8:03 Resul ts for this AM CDT procedure are i n the results section. BASIC METABOLIC PANEL Routine 02/25/2020 5:30 Re sults for this (7) AM CDT procedure are i n the results section. PROTHROMBIN TIME/INR Routine 02/25/2020 5:30 Res ults for this AM CDT procedure are i n the results section. CBC (HEMOGRAM ONLY) Routine 02/25/2020 5:30 Resu lts for this AM CDT procedure are i n the results section. POCT-GLUCOSE METER Routine 02/24/2020 9:10 Resul ts for this PM CDT procedure are i n the results section. POCT-GLUCOSE METER Routine 02/24/2020 4:48 Resul ts for this PM CDT procedure are i n the results section. POCT-GLUCOSE METER Routine 02/24/2020 12:17 Resul ts for this PM CDT procedure are i n the results section. POCT-GLUCOSE METER Routine 02/24/2020 7:34 Resul ts for this AM CDT procedure are i n the results section. POCT-GLUCOSE METER Routine 02/24/2020 7:12 Resul ts for this AM CDT procedure are i n the results section. BASIC METABOLIC PANEL Routine 02/24/2020 3:59 Re sults for this (7) AM CDT procedure are i n the results section. PROTHROMBIN TIME/INR Routine 02/24/2020 3:59 Res ults for this AM CDT procedure are i n the results section. CBC (HEMOGRAM ONLY) Routine 02/24/2020 3:59 Resu lts for this AM CDT procedure are i n the results section. POCT-GLUCOSE METER Routine 02/23/2020 9:20 Resul ts for this PM CDT procedure are i n the results section. POCT-GLUCOSE METER Routine 02/23/2020 4:36 Resul ts for this PM CDT procedure are i n the results section. HEMODIALYSIS INPATIENT Routine 02/23/2020 10:49 AM CDT BASIC METABOLIC PANEL Routine 02/23/2020 4:48 Re sults for this (7) AM CDT procedure are i n the results section. PROTHROMBIN TIME/INR Routine 02/23/2020 4:48 Res ults for this AM CDT procedure are i n the results section. CBC (HEMOGRAM ONLY) Routine 02/23/2020 4:48 Resu lts for this AM CDT procedure are i n the results section. POCT-GLUCOSE METER Routine 02/22/2020 9:05 Resul ts for this PM CDT procedure are i n the results section. POCT-GLUCOSE METER Routine 02/22/2020 3:46 Resul ts for this PM CDT procedure are i n the results section. POCT-GLUCOSE METER Routine 02/22/2020 12:10 Resul ts for this PM CDT procedure are i n the results section. POCT-GLUCOSE METER Routine 02/22/2020 7:30 Resul ts for this AM CDT procedure are i n the results section. BASIC METABOLIC PANEL Routine 02/22/2020 4:56 Re sults for this (7) AM CDT procedure are i n the results section. PROTHROMBIN TIME/INR Routine 02/22/2020 4:56 Res ults for this AM CDT procedure are i n the results section. CBC (HEMOGRAM ONLY) Routine 02/22/2020 4:56 Resu lts for this AM CDT procedure are i n the results section. HEPATITIS B SURFACE Routine 02/22/2020 4:56 Resu lts for this ANTIGEN AM CDT procedure are i n the results section. POCT-GLUCOSE METER Routine 02/21/2020 9:13 Resul ts for this PM CDT procedure are i n the results section. POCT-GLUCOSE METER Routine 02/21/2020 4:59 Resul ts for this PM CDT procedure are i n the results section. HEPATITIS B SURFACE STAT 02/21/2020 9:15 Resu lts for this ANTIGEN AM CDT procedure are i n the results section. HEMODIALYSIS INPATIENT Routine 02/21/2020 7:38 AM CDT POCT-GLUCOSE METER Routine 02/21/2020 7:24 Resul ts for this AM CDT procedure are i n the results section. CBC (HEMOGRAM ONLY) Routine 02/21/2020 5:15 Resu lts for this AM CDT procedure are i n the results section. BASIC METABOLIC PANEL Routine 02/21/2020 5:14 Re sults for this (7) AM CDT procedure are i n the results section. PROTHROMBIN TIME/INR Routine 02/21/2020 5:14 Res ults for this AM CDT procedure are i n the results section. POCT-GLUCOSE METER Routine 02/20/2020 9:05 Resul ts for this PM CDT procedure are i n the results section. POCT-GLUCOSE METER Routine 02/20/2020 4:33 Resul ts for this PM CDT procedure are i n the results section. POCT-GLUCOSE METER Routine 02/20/2020 11:15 Resul ts for this AM CDT procedure are i n the results section. 2D ECHO W/ DOPPLER KLARISSA 02/20/2020 10:00 Resul ts for this (CW/PW/COLOR) AM CDT procedure are in the results section. POCT-GLUCOSE METER Routine 02/20/2020 7:59 Resul ts for this AM CDT procedure are i n the results section. POCT-GLUCOSE METER Routine 02/20/2020 7:27 Resul ts for this AM CDT procedure are i n the results section. BASIC METABOLIC PANEL Routine 02/20/2020 4:34 Re sults for this (7) AM CDT procedure are i n the results section. PROTHROMBIN TIME/INR Routine 02/20/2020 4:34 Res ults for this AM CDT procedure are i n the results section. CBC (HEMOGRAM ONLY) Routine 02/20/2020 4:34 Resu lts for this AM CDT procedure are i n the results section. POCT-GLUCOSE METER Routine 02/19/2020 9:08 Resul ts for this PM CDT procedure are i n the results section. POCT-GLUCOSE METER Routine 02/19/2020 4:24 Resul ts for this PM CDT procedure are i n the results section. POCT-GLUCOSE METER Routine 02/19/2020 9:58 Resul ts for this AM CDT procedure are i n the results section. HEMODIALYSIS INPATIENT Routine 02/19/2020 9:05 AM CDT POCT-GLUCOSE METER Routine 02/19/2020 7:31 Resul ts for this AM CDT procedure are i n the results section. BASIC METABOLIC PANEL Routine 02/19/2020 4:49 Re sults for this (7) AM CDT procedure are i n the results section. PROTHROMBIN TIME/INR Routine 02/19/2020 4:49 Res ults for this AM CDT procedure are i n the results section. CBC (HEMOGRAM ONLY) Routine 02/19/2020 4:49 Resu lts for this AM CDT procedure are i n the results section. POCT-GLUCOSE METER Routine 02/18/2020 8:46 Resul ts for this PM CDT procedure are i n the results section. POCT-GLUCOSE METER Routine 02/18/2020 4:56 Resul ts for this PM CDT procedure are i n the results section. POCT-GLUCOSE METER Routine 02/18/2020 11:30 Resul ts for this AM CDT procedure are i n the results section. POCT-GLUCOSE METER Routine 02/18/2020 7:20 Resul ts for this AM CDT procedure are i n the results section. CBC (HEMOGRAM ONLY) Routine 02/18/2020 4:47 Resu lts for this AM CDT procedure are i n the results section. BASIC METABOLIC PANEL Routine 02/18/2020 4:46 Re sults for this (7) AM CDT procedure are i n the results section. PROTHROMBIN TIME/INR Routine 02/18/2020 4:46 Res ults for this AM CDT procedure are i n the results section. POCT-GLUCOSE METER Routine 02/17/2020 9:04 Resul ts for this PM CDT procedure are i n the results section. POCT-GLUCOSE METER Routine 02/17/2020 4:52 Resul ts for this PM CDT procedure are i n the results section. POCT-GLUCOSE METER Routine 02/17/2020 11:58 Resul ts for this AM CDT procedure are i n the results section. POCT-GLUCOSE METER Routine 02/17/2020 7:54 Resul ts for this AM CDT procedure are i n the results section. BASIC METABOLIC PANEL Routine 02/17/2020 4:40 Re sults for this (7) AM CDT procedure are i n the results section. PROTHROMBIN TIME/INR Routine 02/17/2020 4:40 Res ults for this AM CDT procedure are i n the results section. CBC (HEMOGRAM ONLY) Routine 02/17/2020 4:40 Resu lts for this AM CDT procedure are i n the results section. POCT-GLUCOSE METER Routine 02/16/2020 8:54 Resul ts for this PM CDT procedure are i n the results section. POCT-GLUCOSE METER Routine 02/16/2020 5:04 Resul ts for this PM CDT procedure are i n the results section. HEMODIALYSIS INPATIENT Routine 02/16/2020 12:10 R esults for this PM CDT procedure are i n the results section. HEMODIALYSIS INPATIENT Routine 02/16/2020 11:24 AM CDT BASIC METABOLIC PANEL Routine 02/16/2020 5:16 Re sults for this (7) AM CDT procedure are i n the results section. PROTHROMBIN TIME/INR Routine 02/16/2020 5:16 Res ults for this AM CDT procedure are i n the results section. CBC (HEMOGRAM ONLY) Routine 02/16/2020 5:16 Resu lts for this AM CDT procedure are i n the results section. POCT-GLUCOSE METER Routine 02/15/2020 9:15 Resul ts for this PM CDT procedure are i n the results section. POCT-GLUCOSE METER Routine 02/15/2020 3:53 Resul ts for this PM CDT procedure are i n the results section. POCT-GLUCOSE METER Routine 02/15/2020 11:23 Resul ts for this AM CDT procedure are i n the results section. POCT-GLUCOSE METER Routine 02/15/2020 7:33 Resul ts for this AM CDT procedure are i n the results section. BASIC METABOLIC PANEL Routine 02/15/2020 4:25 Re sults for this (7) AM CDT procedure are i n the results section. PROTHROMBIN TIME/INR Routine 02/15/2020 4:25 Res ults for this AM CDT procedure are i n the results section. CBC (HEMOGRAM ONLY) Routine 02/15/2020 4:25 Resu lts for this AM CDT procedure are i n the results section. POCT-GLUCOSE METER Routine 02/14/2020 9:09 Resul ts for this PM CDT procedure are i n the results section. POCT-GLUCOSE METER Routine 02/14/2020 4:46 Resul ts for this PM CDT procedure are i n the results section. RHYTHM STRIP - SCAN 02/14/2020 1:50 PM CDT POCT-GLUCOSE METER Routine 02/14/2020 8:04 Resul ts for this AM CDT procedure are i n the results section. POCT-GLUCOSE METER Routine 02/14/2020 7:44 Resul ts for this AM CDT procedure are i n the results section. BASIC METABOLIC PANEL Routine 02/14/2020 5:59 Re sults for this (7) AM CDT procedure are i n the results section. PROTHROMBIN TIME/INR Routine 02/14/2020 5:59 Res ults for this AM CDT procedure are i n the results section. CBC (HEMOGRAM ONLY) Routine 02/14/2020 5:59 Resu lts for this AM CDT procedure are i n the results section. POCT-GLUCOSE METER Routine 02/13/2020 9:07 Resul ts for this PM CDT procedure are i n the results section. POCT-GLUCOSE METER Routine 02/13/2020 4:45 Resul ts for this PM CDT procedure are i n the results section. POCT-GLUCOSE METER Routine 02/13/2020 11:50 Resul ts for this AM CDT procedure are i n the results section. POCT-GLUCOSE METER Routine 02/13/2020 7:34 Resul ts for this AM CDT procedure are i n the results section. BASIC METABOLIC PANEL Routine 02/13/2020 4:46 Re sults for this (7) AM CDT procedure are i n the results section. PROTHROMBIN TIME/INR Routine 02/13/2020 4:46 Res ults for this AM CDT procedure are i n the results section. CBC (HEMOGRAM ONLY) Routine 02/13/2020 4:46 Resu lts for this AM CDT procedure are i n the results section. POCT-GLUCOSE METER Routine 02/12/2020 9:21 Resul ts for this PM CDT procedure are i n the results section. POCT-GLUCOSE METER Routine 02/12/2020 5:17 Resul ts for this PM CDT procedure are i n the results section. POCT-GLUCOSE METER Routine 02/12/2020 12:19 Resul ts for this PM CDT procedure are i n the results section. POCT-GLUCOSE METER Routine 02/12/2020 7:51 Resul ts for this AM CDT procedure are i n the results section. HEMODIALYSIS INPATIENT Routine 02/12/2020 7:19 AM CDT PROTHROMBIN TIME/INR Routine 02/12/2020 4:30 Res ults for this AM CDT procedure are i n the results section. CBC (HEMOGRAM ONLY) Routine 02/12/2020 4:30 Resu lts for this AM CDT procedure are i n the results section. POCT-GLUCOSE METER Routine 02/11/2020 8:57 Resul ts for this PM CDT procedure are i n the results section. TRANSFUSION SERVICE 02/11/2020 5:50 REPORT - SCAN PM CDT POCT-GLUCOSE METER Routine 02/11/2020 4:56 Resul ts for this PM CDT procedure are i n the results section. POCT-GLUCOSE METER Routine 02/11/2020 12:16 Resul ts for this PM CDT procedure are i n the results section. POCT-GLUCOSE METER Routine 02/11/2020 7:00 Resul ts for this AM CDT procedure are i n the results section. POCT-GLUCOSE METER Routine 02/11/2020 3:40 Resul ts for this AM CDT procedure are i n the results section. PROTHROMBIN TIME/INR Routine 02/11/2020 3:32 Res ults for this AM CDT procedure are i n the results section. CBC (HEMOGRAM ONLY) Routine 02/11/2020 3:32 Resu lts for this AM CDT procedure are i n the results section. PREPARE PLASMA Routine 02/10/2020 11:54 Results f or this PM CDT procedure are i n the results section. TRANSFUSION SERVICE 02/10/2020 5:50 REPORT - SCAN PM CDT POCT-GLUCOSE METER Routine 02/10/2020 4:38 Resul ts for this PM CDT procedure are i n the results section. POCT-GLUCOSE METER Routine 02/10/2020 11:48 Resul ts for this AM CDT procedure are i n the results section. HEMODIALYSIS INPATIENT Routine 02/10/2020 8:51 AM CDT POCT-GLUCOSE METER Routine 02/10/2020 6:59 Resul ts for this AM CDT procedure are i n the results section. BASIC METABOLIC PANEL Routine 02/10/2020 4:08 Re sults for this (7) AM CDT procedure are i n the results section. PROTHROMBIN TIME/INR Routine 02/10/2020 4:08 Res ults for this AM CDT procedure are i n the results section. CBC (HEMOGRAM ONLY) Routine 02/10/2020 4:08 Resu lts for this AM CDT procedure are i n the results section. POCT-GLUCOSE METER Routine 02/09/2020 9:04 Resul ts for this PM CDT procedure are i n the results section. POCT-GLUCOSE METER Routine 02/09/2020 5:39 Resul ts for this PM CDT procedure are i n the results section. XR CHEST 1 VIEW STAT 02/09/2020 4:27 Results for this PORTABLE/BEDSIDE PM CDT procedure a re in the results section. IR CV ACCESS FLUORO Routine 02/09/2020 4:08 Resu lts for this PM CDT procedure are i n the results section. HEMODIALYSIS INPATIENT Routine 02/09/2020 12:36 R esults for this PM CDT procedure are i n the results section. PROTHROMBIN TIME/INR Routine 02/09/2020 12:21 Res ults for this PM CDT procedure are i n the results section. POCT-GLUCOSE METER Routine 02/09/2020 11:43 Resul ts for this AM CDT procedure are i n the results section. TRANSFUSE PLASMA Routine 02/09/2020 10:49 AM CDT TYPE AND SCREEN, Routine 02/09/2020 4:52 Results for this AUTOMATED AM CDT procedure are i n the results section. PROTHROMBIN TIME/INR Routine 02/09/2020 4:51 Res ults for this AM CDT procedure are i n the results section. CBC (HEMOGRAM ONLY) Routine 02/09/2020 4:51 Resu lts for this AM CDT procedure are i n the results section. POCT-GLUCOSE METER Routine 02/08/2020 9:12 Resul ts for this PM CDT procedure are i n the results section. HEMODIALYSIS INPATIENT Routine 02/08/2020 6:34 R esults for this PM CDT procedure are i n the results section. POCT-GLUCOSE METER Routine 02/08/2020 6:24 Resul ts for this PM CDT procedure are i n the results section. US CHEST KLARISSA 02/08/2020 1:14 Results for this PM CDT procedure are i n the results section. POCT-GLUCOSE METER Routine 02/08/2020 11:16 Resul ts for this AM CDT procedure are i n the results section. POCT-GLUCOSE METER Routine 02/08/2020 7:41 Resul ts for this AM CDT procedure are i n the results section. POCT-GLUCOSE Routine 02/08/2020 4:28 Results for this AM CDT procedure are i n the results section. POCT-CALCIUM IONIZED Routine 02/08/2020 4:28 Res ults for this AM CDT procedure are i n the results section. POCT-HEMATOCRIT Routine 02/08/2020 4:28 Results for this AM CDT procedure are i n the results section. POCT-HEMOGLOBIN Routine 02/08/2020 4:28 Results for this AM CDT procedure are i n the results section. POCT-POTASSIUM Routine 02/08/2020 4:28 Results f or this AM CDT procedure are i n the results section. POCT-SODIUM Routine 02/08/2020 4:28 Results for this AM CDT procedure are i n the results section. POCT-BLOOD GASES, Routine 02/08/2020 4:28 Result s for this ARTERIAL AM CDT procedure are i n the results section. ECG 12-LEAD Routine 02/08/2020 4:25 AM CDT Procedure Note - Interface, External Ris In - 02/08/2020 4:33 AM CDT Ventricular Rate 81 BPM Atrial Rate 81 BPM P-R Interval 176 ms QRS Duration 130 ms Q-T Interval 482 ms QTC Calculation(Bazett) 559 ms P [place] -26 degrees R [place] -28 degrees T [place] 53 degrees AV dual-paced rhythm with oc casional Premature ventricular complexes Abnormal ECG When compared with ECG of 02:15, Premature ventricular comple xes are now Present ECG 12-LEAD STAT 02/08/2020 4:25 AM CDT Resu lts for this procedure are i n the results section . B-TYPE NATRIURETIC FACTOR STAT 02/08/2020 4:24 AM CDT Results for this (BNP) procedure are i n the results section . COMPREHENSIVE METABOLIC STAT 02/08/2020 4:22 AM CDT Results for this PANEL procedure are i n the results section . TROPONIN I STAT 02/08/2020 4:22 AM CDT Resu lts for this procedure are i n the results section . PHOSPHORUS STAT 02/08/2020 4:22 AM CDT Resu lts for this procedure are i n the results section . MAGNESIUM STAT 02/08/2020 4:22 AM CDT Resu lts for this procedure are i n the results section . PROTHROMBIN TIME/INR Routine 02/08/2020 4:22 AM CDT Results for this procedure are i n the results section . CBC (HEMOGRAM ONLY) Routine 02/08/2020 4:22 AM CDT Results for this procedure are i n the results section . XR CHEST 1 VIEW STAT 02/08/2020 4:09 AM CDT R esults for this PORTABLE/BEDSIDE procedure a re in the results section . POCT-GLUCOSE METER Routine 02/07/2020 8:49 PM CDT Results for this procedure are i n the results section . POCT-GLUCOSE METER Routine 02/07/2020 4:29 PM CDT Results for this procedure are i n the results section . HEMODIALYSIS INPATIENT Routine 02/07/2020 3:15 PM CDT Results for this procedure are i n the results section . POCT-GLUCOSE METER Routine 02/07/2020 11:22 AM CDT Results for this procedure are i n the results section . POCT-GLUCOSE METER Routine 02/07/2020 7:28 AM CDT Results for this procedure are i n the results section . MAGNESIUM Routine 02/07/2020 4:24 AM CDT Resu lts for this procedure are i n the results section . BASIC METABOLIC PANEL (7) Routine 02/07/2020 4:24 AM CDT Results for this procedure are i n the results section . PROTHROMBIN TIME/INR Routine 02/07/2020 4:24 AM CDT Results for this procedure are i n the results section . CBC (HEMOGRAM ONLY) Routine 02/07/2020 4:24 AM CDT Results for this procedure are i n the results section . POCT-GLUCOSE METER Routine 02/06/2020 9:48 PM CDT Results for this procedure are i n the results section . RAPID INFLUENZA A&B SCREEN Routine 02/06/2020 8:35 PM CDT Results for this procedure are i n the results section . RESPIRATORY PANEL [facility] STAT 02/06/2020 8:35 PM CDT Results for this procedure are i n the results section . HEMODIALYSIS INPATIENT Routine 02/06/2020 5:00 PM CDT Results for this procedure are i n the results section . POCT-GLUCOSE METER Routine 02/06/2020 4:49 PM CDT Results for this procedure are i n the results section . POCT-GLUCOSE METER Routine 02/06/2020 11:38 AM CDT Results for this procedure are i n the results section . XR CHEST 1 VIEW KLARISSA 02/06/2020 11:15 AM CDT R esults for this PORTABLE/BEDSIDE procedure a re in the results section . LIMITED 2D ECHOCARDIOGRAM Routine 02/06/2020 10:09 AM CDT Results for this procedure are i n the results section . BASIC METABOLIC PANEL (7) Routine 02/06/2020 8:47 AM CDT Results for this procedure are i n the results section . TROPONIN I Routine 02/06/2020 8:47 AM CDT Resu lts for this procedure are i n the results section . POCT-GLUCOSE METER Routine 02/06/2020 7:52 AM CDT Results for this procedure are i n the results section . BASIC METABOLIC PANEL (7) Add-On 02/06/2020 4:46 AM CDT Results for this procedure are i n the results section . TROPONIN I STAT 02/06/2020 4:46 AM CDT Resu lts for this procedure are i n the results section . PROTHROMBIN TIME/INR Routine 02/06/2020 4:46 AM CDT Results for this procedure are i n the results section . CBC (HEMOGRAM ONLY) Routine 02/06/2020 4:46 AM CDT Results for this procedure are i n the results section . ECG 12-LEAD Routine 02/06/2020 2:15 AM CDT Procedure Note - Interface, External Ris In - 02/06/2020 2:19 AM CDT Ventricular Rate 80 BPM Atrial Rate 80 BPM P-R Interval 174 ms QRS Duration 138 ms Q-T Interval 474 ms QTC Calculation(Bazett) 546 ms R [place] 268 degrees T [place] 76 degrees AV dual-paced rhythm Abnormal ECG ECG 12-LEAD STAT 02/06/2020 2:15 AM CDT Resu lts for this procedure are i n the results section . TROPONIN I Routine 02/06/2020 12:02 AM CDT Resu lts for this procedure are i n the results section . CBC W/PLT COUNT & AUTO STAT 02/05/2020 10:17 PM CDT Results for this DIFFERENTIAL procedure are i n the results section . COMPREHENSIVE METABOLIC PANEL Routine 02/05/2020 10:17 PM CDT Results for this procedure are i n the results section . CBC W/PLT COUNT & AUTO STAT 02/05/2020 10:17 PM CDT Results for this DIFFERENTIAL procedure are i n the results section . B-TYPE NATRIURETIC FACTOR Routine 02/05/2020 10:17 PM CDT Results for this (BNP) procedure are i n the results section . ULTRAFILTRATION HD CRRT Routine 02/05/2020 9:31 PM CDT POCT-GLUCOSE METER Routine 02/05/2020 9:24 PM CDT Results for this procedure are i n the results section . XR CHEST 1 VIEW STAT 02/05/2020 9:12 PM CDT R esults for this PORTABLE/BEDSIDE procedure a re in the results section . TROPONIN I Routine 02/05/2020 8:18 PM CDT Resu lts for this procedure are i n the results section . ECG 12-LEAD Routine 02/05/2020 8:13 PM CDT Resu lts for this procedure are i n the results section . ECG 12-LEAD Routine 02/05/2020 8:13 PM CDT Resu lts for this procedure are i n the results section . ECG 12-LEAD Routine 02/05/2020 8:07 PM CDT Resu lts for this procedure are i n the results section . ECG 12-LEAD Routine 02/05/2020 8:06 PM CDT Resu lts for this procedure are i n the results section . ECG 12-LEAD Routine 02/05/2020 8:04 PM CDT Procedure Note - Interface, External Ris In - 02/05/2020 8:16 PM CDT Ventricular Rate 80 BPM Atrial Rate 80 BPM P-R Interval 174 ms QRS Duration 132 ms Q-T Interval 472 ms QTC Calculation(Bazett) 544 ms P [place] -11 degrees R [place] 77 degrees T [place] 59 degrees AV dual-paced rhythm Abnormal ECG When compared with ECG of 04:24, Electronic ventricular pacem ab has replaced Sinus rhythm Vent. rate has increased BY 26 BPM ECG 12-LEAD Routine 02/05/2020 8:04 Results for this PM CDT procedure are i n the results section. POCT-GLUCOSE METER Routine 02/05/2020 4:15 Resul ts for this PM CDT procedure are i n the results section. POCT-GLUCOSE METER Routine 02/05/2020 11:21 Resul ts for this AM CDT procedure are i n the results section. POCT-GLUCOSE METER Routine 02/05/2020 7:19 Resul ts for this AM CDT procedure are i n the results section. MAGNESIUM Routine 02/05/2020 2:27 Results for this AM CDT procedure are i n the results section. BASIC METABOLIC PANEL Routine 02/05/2020 2:27 Re sults for this (7) AM CDT procedure are i n the results section. PROTHROMBIN TIME/INR Routine 02/05/2020 2:27 Res ults for this AM CDT procedure are i n the results section. CBC (HEMOGRAM ONLY) Routine 02/05/2020 2:27 Resu lts for this AM CDT procedure are i n the results section. POCT-GLUCOSE METER Routine 02/04/2020 10:02 Resul ts for this PM CDT procedure are i n the results section. ULTRAFILTRATION HD CRRT Routine 02/04/2020 9:55 Results for this PM CDT procedure are i n the results section. XR CHEST 1 VIEW STAT 02/04/2020 2:48 Results for this PORTABLE/BEDSIDE PM CDT procedure a re in the results section. POCT-GLUCOSE METER Routine 02/04/2020 1:21 Resul ts for this PM CDT procedure are i n the results section. POCT-GLUCOSE METER Routine 02/04/2020 9:00 Resul ts for this AM CDT procedure are i n the results section. FERRITIN Routine 02/04/2020 4:34 Results for this AM CDT procedure are i n the results section. IRON, TIBC, % SAT. Routine 02/04/2020 4:34 Resul ts for this (WITHOUT FERRITIN) AM CDT procedure are in the results section. PROTHROMBIN TIME/INR Routine 02/04/2020 4:34 Res ults for this AM CDT procedure are i n the results section. CBC (HEMOGRAM ONLY) Routine 02/04/2020 4:34 Resu lts for this AM CDT procedure are i n the results section. POCT-GLUCOSE METER Routine 02/03/2020 5:36 Resul ts for this PM CDT procedure are i n the results section. POCT-GLUCOSE METER Routine 02/03/2020 12:27 Resul ts for this PM CDT procedure are i n the results section. POCT-GLUCOSE METER Routine 02/03/2020 7:15 Resul ts for this AM CDT procedure are i n the results section. PROTHROMBIN TIME/INR Routine 02/03/2020 4:51 Res ults for this AM CDT procedure are i n the results section. CBC (HEMOGRAM ONLY) Routine 02/03/2020 4:51 Resu lts for this AM CDT procedure are i n the results section. POCT-GLUCOSE METER Routine 02/02/2020 9:19 Resul ts for this PM CDT procedure are i n the results section. POCT-GLUCOSE METER Routine 02/02/2020 5:51 Resul ts for this PM CDT procedure are i n the results section. TRANSFUSION SERVICE 02/02/2020 5:50 REPORT - SCAN PM CDT HEMODIALYSIS INPATIENT Routine 02/02/2020 9:37 AM CDT POCT-GLUCOSE METER Routine 02/02/2020 7:54 Resul ts for this AM CDT procedure are i n the results section. BASIC METABOLIC PANEL Routine 02/02/2020 4:35 Re sults for this (7) AM CDT procedure are i n the results section. PROTHROMBIN TIME/INR Routine 02/02/2020 4:35 Res ults for this AM CDT procedure are i n the results section. CBC (HEMOGRAM ONLY) Routine 02/02/2020 4:35 Resu lts for this AM CDT procedure are i n the results section. PREPARE LEUKO-REDUCED STAT 02/01/2020 11:54 Re sults for this RBC PM CDT procedure are i n the results section. POCT-GLUCOSE METER Routine 02/01/2020 9:19 Resul ts for this PM CDT procedure are i n the results section. TRANSFUSION SERVICE 02/01/2020 5:50 REPORT - SCAN PM CDT POCT-GLUCOSE METER Routine 02/01/2020 1:16 Resul ts for this PM CDT procedure are i n the results section. POCT-GLUCOSE METER Routine 02/01/2020 9:41 Resul ts for this AM CDT procedure are i n the results section. PROTHROMBIN TIME/INR Routine 02/01/2020 5:01 Res ults for this AM CDT procedure are i n the results section. CBC (HEMOGRAM ONLY) Routine 02/01/2020 5:01 Resu lts for this AM CDT procedure are i n the results section. PROTHROMBIN TIME/INR STAT 01/31/2020 8:19 Res ults for this PM CDT procedure are i n the results section. POCT-GLUCOSE METER Routine 01/31/2020 4:30 Resul ts for this PM CDT procedure are i n the results section. HEMOGLOBIN AND KLARISSA 01/31/2020 1:25 Results f or this HEMATOCRIT PM CDT procedure are i n the results section. HEMODIALYSIS INPATIENT Routine 01/31/2020 12:55 PM CDT POCT-GLUCOSE METER Routine 01/31/2020 11:32 Resul ts for this AM CDT procedure are i n the results section. XR CHEST 1 VIEW Routine 01/31/2020 8:18 Results for this PORTABLE/BEDSIDE AM CDT procedure a re in the results section. POCT-GLUCOSE METER Routine 01/31/2020 7:17 Resul ts for this AM CDT procedure are i n the results section. TRANSFUSE LEUKO-REDUCED STAT 01/31/2020 6:47 RED BLOOD CELLS AM CDT BLOOD GAS, ARTERIAL STAT 01/31/2020 3:27 Resu lts for this AM CDT procedure are i n the results section. CBC (HEMOGRAM ONLY) Routine 01/31/2020 3:22 Resu lts for this AM CDT procedure are i n the results section. OXYGEN SATURATION, Routine 01/31/2020 3:12 Resul ts for this MEASURED AM CDT procedure are i n the results section. BASIC METABOLIC PANEL Routine 01/31/2020 3:12 Re sults for this (7) AM CDT procedure are i n the results section. MAGNESIUM Routine 01/31/2020 3:12 Results for this AM CDT procedure are i n the results section. PHOSPHORUS Routine 01/31/2020 3:12 Results for this AM CDT procedure are i n the results section. CALCIUM, IONIZED STAT 01/31/2020 3:12 Results for this AM CDT procedure are i n the results section. TYPE AND SCREEN, STAT 01/31/2020 2:18 Results for this AUTOMATED AM CDT procedure are i n the results section. CBC W/PLT COUNT & AUTO STAT 01/30/2020 11:06 R esults for this DIFFERENTIAL PM CDT procedure are i n the results section. LACTIC ACID, ARTERIAL STAT 01/30/2020 11:06 Re sults for this PM CDT procedure are i n the results section. OXYGEN SATURATION, STAT 01/30/2020 11:06 Resul ts for this MEASURED PM CDT procedure are i n the results section. CBC W/PLT COUNT & AUTO STAT 01/30/2020 11:06 R esults for this DIFFERENTIAL PM CDT procedure are i n the results section. XR CHEST 1 VIEW STAT 01/30/2020 10:32 Results for this PORTABLE/BEDSIDE PM CDT procedure a re in the results section. POCT-GLUCOSE METER Routine 01/30/2020 10:07 Resul ts for this PM CDT procedure are i n the results section. BASIC METABOLIC PANEL Routine 01/30/2020 8:59 Re sults for this (7) PM CDT procedure are i n the results section. MAGNESIUM Routine 01/30/2020 8:59 Results for this PM CDT procedure are i n the results section. PHOSPHORUS Routine 01/30/2020 8:59 Results for this PM CDT procedure are i n the results section. CALCIUM, IONIZED STAT 01/30/2020 8:59 Results for this PM CDT procedure are i n the results section. POCT-GLUCOSE METER Routine 01/30/2020 5:24 Resul ts for this PM CDT procedure are i n the results section. ARRYTHMIA IMPLANT REPORT 01/30/2020 3:50 Results for this - SCAN PM CDT procedure are i n the results section. 2D ECHO W/ DOPPLER STAT 01/30/2020 1:49 Resul ts for this (CW/PW/COLOR) PM CDT procedure are in the results section. BASIC METABOLIC PANEL Routine 01/30/2020 12:20 Re sults for this (7) PM CDT procedure are i n the results section. MAGNESIUM Routine 01/30/2020 12:20 Results for this PM CDT procedure are i n the results section. PHOSPHORUS Routine 01/30/2020 12:20 Results for this PM CDT procedure are i n the results section. CALCIUM, IONIZED STAT 01/30/2020 12:20 Results for this PM CDT procedure are i n the results section. POCT-GLUCOSE METER Routine 01/30/2020 12:08 Resul ts for this PM CDT procedure are i n the results section. POCT-GLUCOSE METER Routine 01/30/2020 7:35 Resul ts for this AM CDT procedure are i n the results section. OXYGEN SATURATION, STAT 01/30/2020 6:11 Resul ts for this MEASURED AM CDT procedure are i n the results section. CALCIUM, IONIZED Routine 01/30/2020 2:33 Results for this AM CDT procedure are i n the results section. BUN AND CREATININE Routine 01/30/2020 2:33 Resul ts for this W/RATIO AM CDT procedure are i n the results section. OXYGEN SATURATION, Routine 01/30/2020 2:33 Resul ts for this MEASURED AM CDT procedure are i n the results section. BLOOD GAS, ARTERIAL STAT 01/30/2020 2:33 Resu lts for this AM CDT procedure are i n the results section. BASIC METABOLIC PANEL Routine 01/30/2020 2:33 Re sults for this (7) AM CDT procedure are i n the results section. MAGNESIUM Routine 01/30/2020 2:33 Results for this AM CDT procedure are i n the results section. PHOSPHORUS Routine 01/30/2020 2:33 Results for this AM CDT procedure are i n the results section. CBC (HEMOGRAM ONLY) Routine 01/30/2020 2:33 Resu lts for this AM CDT procedure are i n the results section. POCT-GLUCOSE METER Routine 01/29/2020 10:55 Resul ts for this PM CDT procedure are i n the results section. BASIC METABOLIC PANEL Routine 01/29/2020 8:52 Re sults for this (7) PM CDT procedure are i n the results section. MAGNESIUM Routine 01/29/2020 8:52 Results for this PM CDT procedure are i n the results section. PHOSPHORUS Routine 01/29/2020 8:52 Results for this PM CDT procedure are i n the results section. CALCIUM, IONIZED STAT 01/29/2020 8:52 Results for this PM CDT procedure are i n the results section. POCT-GLUCOSE METER Routine 01/29/2020 6:01 Resul ts for this PM CDT procedure are i n the results section. POCT-GLUCOSE METER Routine 01/29/2020 5:41 Resul ts for this PM CDT procedure are i n the results section. POTASSIUM Routine 01/29/2020 3:02 Results for this PM CDT procedure are i n the results section. POCT-GLUCOSE METER Routine 01/29/2020 11:46 Resul ts for this AM CDT procedure are i n the results section. BASIC METABOLIC PANEL Routine 01/29/2020 11:42 Re sults for this (7) AM CDT procedure are i n the results section. MAGNESIUM Routine 01/29/2020 11:42 Results for this AM CDT procedure are i n the results section. PHOSPHORUS Routine 01/29/2020 11:42 Results for this AM CDT procedure are i n the results section. CALCIUM, IONIZED STAT 01/29/2020 11:42 Results for this AM CDT procedure are i n the results section. POCT-GLUCOSE METER Routine 01/29/2020 9:51 Resul ts for this AM CDT procedure are i n the results section. OXYGEN SATURATION, Routine 01/29/2020 9:48 Resul ts for this MEASURED AM CDT procedure are i n the results section. POTASSIUM Routine 01/29/2020 8:10 Results for this AM CDT procedure are i n the results section. POCT-GLUCOSE METER Routine 01/29/2020 8:04 Resul ts for this AM CDT procedure are i n the results section. OXYGEN SATURATION, Routine 01/29/2020 3:22 Resul ts for this MEASURED AM CDT procedure are i n the results section. BUN AND CREATININE Routine 01/29/2020 3:20 Resul ts for this W/RATIO AM CDT procedure are i n the results section. BLOOD GAS, ARTERIAL STAT 01/29/2020 3:20 Resu lts for this AM CDT procedure are i n the results section. BASIC METABOLIC PANEL Routine 01/29/2020 3:20 Re sults for this (7) AM CDT procedure are i n the results section. HEPATIC FUNCTION PANEL Routine 01/29/2020 3:20 R esults for this AM CDT procedure are i n the results section. MAGNESIUM Routine 01/29/2020 3:20 Results for this AM CDT procedure are i n the results section. PHOSPHORUS Routine 01/29/2020 3:20 Results for this AM CDT procedure are i n the results section. CALCIUM, IONIZED STAT 01/29/2020 3:20 Results for this AM CDT procedure are i n the results section. CBC (HEMOGRAM ONLY) Routine 01/29/2020 3:20 Resu lts for this AM CDT procedure are i n the results section. POCT-GLUCOSE METER Routine 01/28/2020 11:34 Resul ts for this PM CDT procedure are i n the results section. LACTIC ACID, ARTERIAL Routine 01/28/2020 8:23 Re sults for this PM CDT procedure are i n the results section. BLOOD GAS, ARTERIAL Routine 01/28/2020 8:23 Resu lts for this PM CDT procedure are i n the results section. BASIC METABOLIC PANEL Routine 01/28/2020 8:23 Re sults for this (7) PM CDT procedure are i n the results section. MAGNESIUM Routine 01/28/2020 8:23 Results for this PM CDT procedure are i n the results section. PHOSPHORUS Routine 01/28/2020 8:23 Results for this PM CDT procedure are i n the results section. CALCIUM, IONIZED STAT 01/28/2020 8:23 Results for this PM CDT procedure are i n the results section. POCT-GLUCOSE METER Routine 01/28/2020 5:36 Resul ts for this PM CDT procedure are i n the results section. POCT-GLUCOSE METER Routine 01/28/2020 5:18 Resul ts for this PM CDT procedure are i n the results section. OXYGEN SATURATION, STAT 01/28/2020 2:18 Resul ts for this MEASURED PM CDT procedure are i n the results section. BASIC METABOLIC PANEL Routine 01/28/2020 12:42 Re sults for this (7) PM CDT procedure are i n the results section. MAGNESIUM Routine 01/28/2020 12:42 Results for this PM CDT procedure are i n the results section. PHOSPHORUS Routine 01/28/2020 12:42 Results for this PM CDT procedure are i n the results section. CALCIUM, IONIZED STAT 01/28/2020 12:42 Results for this PM CDT procedure are i n the results section. POCT-GLUCOSE METER Routine 01/28/2020 11:08 Resul ts for this AM CDT procedure are i n the results section. PH, ARTERIAL Routine 01/28/2020 8:37 Results for this AM CDT procedure are i n the results section. POTASSIUM Routine 01/28/2020 8:37 Results for this AM CDT procedure are i n the results section. POCT-GLUCOSE METER Routine 01/28/2020 8:34 Resul ts for this AM CDT procedure are i n the results section. POCT-GLUCOSE METER Routine 01/28/2020 7:42 Resul ts for this AM CDT procedure are i n the results section. OXYGEN SATURATION, Routine 01/28/2020 2:42 Resul ts for this MEASURED AM CDT procedure are i n the results section. BLOOD GAS, ARTERIAL STAT 01/28/2020 2:40 Resu lts for this AM CDT procedure are i n the results section. BUN AND CREATININE Routine 01/28/2020 2:38 Resul ts for this W/RATIO AM CDT procedure are i n the results section. LACTIC ACID, ARTERIAL Routine 01/28/2020 2:38 Re sults for this AM CDT procedure are i n the results section. BASIC METABOLIC PANEL Routine 01/28/2020 2:38 Re sults for this (7) AM CDT procedure are i n the results section. HEPATIC FUNCTION PANEL Routine 01/28/2020 2:38 R esults for this AM CDT procedure are i n the results section. MAGNESIUM Routine 01/28/2020 2:38 Results for this AM CDT procedure are i n the results section. PHOSPHORUS Routine 01/28/2020 2:38 Results for this AM CDT procedure are i n the results section. CALCIUM, IONIZED STAT 01/28/2020 2:38 Results for this AM CDT procedure are i n the results section. CBC (HEMOGRAM ONLY) Routine 01/28/2020 2:38 Resu lts for this AM CDT procedure are i n the results section. PH, ARTERIAL Routine 01/28/2020 2:38 Results for this AM CDT procedure are i n the results section. XR CHEST 1 VIEW Routine 01/28/2020 1:05 Results for this PORTABLE/BEDSIDE AM CDT procedure a re in the results section. POCT-GLUCOSE METER Routine 01/27/2020 10:58 Resul ts for this PM CDT procedure are i n the results section. OXYGEN SATURATION, Routine 01/27/2020 8:41 Resul ts for this MEASURED PM CDT procedure are i n the results section. BLOOD GAS, ARTERIAL Routine 01/27/2020 8:35 Resu lts for this PM CDT procedure are i n the results section. LACTIC ACID, ARTERIAL Routine 01/27/2020 8:34 Re sults for this PM CDT procedure are i n the results section. BASIC METABOLIC PANEL Routine 01/27/2020 8:34 Re sults for this (7) PM CDT procedure are i n the results section. MAGNESIUM Routine 01/27/2020 8:34 Results for this PM CDT procedure are i n the results section. PHOSPHORUS Routine 01/27/2020 8:34 Results for this PM CDT procedure are i n the results section. CALCIUM, IONIZED STAT 01/27/2020 8:34 Results for this PM CDT procedure are i n the results section. TRANSFUSION SERVICE 01/27/2020 5:52 REPORT - SCAN PM CDT POCT-GLUCOSE METER Routine 01/27/2020 3:29 Resul ts for this PM CDT procedure are i n the results section. PH, ARTERIAL Routine 01/27/2020 3:26 Results for this PM CDT procedure are i n the results section. POTASSIUM Routine 01/27/2020 3:26 Results for this PM CDT procedure are i n the results section. 2D ECHO W/ DOPPLER Routine 01/27/2020 11:44 Resul ts for this (CW/PW/COLOR) AM CDT procedure are in the results section. POCT-GLUCOSE METER Routine 01/27/2020 11:11 Resul ts for this AM CDT procedure are i n the results section. BASIC METABOLIC PANEL Routine 01/27/2020 11:00 Re sults for this (7) AM CDT procedure are i n the results section. MAGNESIUM Routine 01/27/2020 11:00 Results for this AM CDT procedure are i n the results section. PHOSPHORUS Routine 01/27/2020 11:00 Results for this AM CDT procedure are i n the results section. CALCIUM, IONIZED STAT 01/27/2020 11:00 Results for this AM CDT procedure are i n the results section. POCT-GLUCOSE METER Routine 01/27/2020 7:42 Resul ts for this AM CDT procedure are i n the results section. PH, ARTERIAL Routine 01/27/2020 7:39 Results for this AM CDT procedure are i n the results section. POTASSIUM Routine 01/27/2020 7:39 Results for this AM CDT procedure are i n the results section. HGB/HCT (H&H) - STAT LAB STAT 01/27/2020 6:38 Results for this AM CDT procedure are i n the results section. POCT-GLUCOSE METER Routine 01/27/2020 6:30 Resul ts for this AM CDT procedure are i n the results section. OXYGEN SATURATION, Routine 01/27/2020 3:40 Resul ts for this MEASURED AM CDT procedure are i n the results section. POCT-GLUCOSE METER Routine 01/27/2020 3:31 Resul ts for this AM CDT procedure are i n the results section. LACTIC ACID, ARTERIAL Routine 01/27/2020 3:28 Re sults for this AM CDT procedure are i n the results section. BASIC METABOLIC PANEL Routine 01/27/2020 3:28 Re sults for this (7) AM CDT procedure are i n the results section. HEPATIC FUNCTION PANEL Routine 01/27/2020 3:28 R esults for this AM CDT procedure are i n the results section. MAGNESIUM Routine 01/27/2020 3:28 Results for this AM CDT procedure are i n the results section. PHOSPHORUS Routine 01/27/2020 3:28 Results for this AM CDT procedure are i n the results section. CALCIUM, IONIZED STAT 01/27/2020 3:28 Results for this AM CDT procedure are i n the results section. CBC (HEMOGRAM ONLY) Routine 01/27/2020 3:28 Resu lts for this AM CDT procedure are i n the results section. POCT-GLUCOSE METER Routine 01/27/2020 1:34 Resul ts for this AM CDT procedure are i n the results section. XR CHEST 1 VIEW Routine 01/27/2020 1:20 Results for this PORTABLE/BEDSIDE AM CDT procedure a re in the results section. POCT-GLUCOSE METER Routine 01/26/2020 10:58 Resul ts for this PM CDT procedure are i n the results section. PH, ARTERIAL Routine 01/26/2020 10:43 Results for this PM CDT procedure are i n the results section. CALCIUM, IONIZED STAT 01/26/2020 10:43 Results for this PM CDT procedure are i n the results section. BASIC METABOLIC PANEL Routine 01/26/2020 10:42 Re sults for this (7) PM CDT procedure are i n the results section. MAGNESIUM Routine 01/26/2020 10:42 Results for this PM CDT procedure are i n the results section. PHOSPHORUS Routine 01/26/2020 10:42 Results for this PM CDT procedure are i n the results section. POCT-GLUCOSE METER Routine 01/26/2020 9:02 Resul ts for this PM CDT procedure are i n the results section. POCT-GLUCOSE METER Routine 01/26/2020 6:51 Resul ts for this PM CDT procedure are i n the results section. POCT-GLUCOSE METER Routine 01/26/2020 5:34 Resul ts for this PM CDT procedure are i n the results section. HGB/HCT (H&H) - STAT LAB STAT 01/26/2020 4:39 Results for this PM CDT procedure are i n the results section. GLUCOSE-STAT LAB STAT 01/26/2020 4:39 Results for this PM CDT procedure are i n the results section. POTASSIUM-STAT LAB STAT 01/26/2020 4:39 Resul ts for this PM CDT procedure are i n the results section. SODIUM NA-STAT LAB STAT 01/26/2020 4:39 Resul ts for this PM CDT procedure are i n the results section. BLOOD GAS, ARTERIAL STAT 01/26/2020 4:39 Resu lts for this PM CDT procedure are i n the results section. RRL CRITICAL LABS STAT 01/26/2020 4:39 Result s for this (ABG,NA,K,H&H,GLUCOSE) PM CDT proce dure are in the results section. POCT-GLUCOSE METER Routine 01/26/2020 4:39 Resul ts for this PM CDT procedure are i n the results section. POCT-GLUCOSE METER Routine 01/26/2020 3:06 Resul ts for this PM CDT procedure are i n the results section. POCT-GLUCOSE METER Routine 01/26/2020 2:04 Resul ts for this PM CDT procedure are i n the results section. POCT-GLUCOSE METER Routine 01/26/2020 1:16 Resul ts for this PM CDT procedure are i n the results section. 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 PELAYO POCT-GLUCOSE METER Routine 01/26/2020 12:31 PM CDT Results for this procedure are i n the results section . POCT-GLUCOSE METER Routine 01/26/2020 11:49 AM CDT Results for this procedure are i n the results section . POCT-GLUCOSE METER Routine 01/26/2020 11:31 AM CDT Results for this procedure are i n the results section . BASIC METABOLIC PANEL (7) Routine 01/26/2020 11:00 AM CDT Results for this procedure are i n the results section . MAGNESIUM Routine 01/26/2020 11:00 AM CDT Resu lts for this procedure are i n the results section . PHOSPHORUS Routine 01/26/2020 11:00 AM CDT Resu lts for this procedure are i n the results section . CALCIUM, IONIZED STAT 01/26/2020 11:00 AM CDT Results for this procedure are i n the results section . POCT-GLUCOSE METER Routine 01/26/2020 10:59 AM CDT Results for this procedure are i n the results section . POCT-GLUCOSE METER Routine 01/26/2020 10:42 AM CDT Results for this procedure are i n the results section . XR CHEST 1 VIEW Routine 01/26/2020 10:14 AM CDT R esults for this PORTABLE/BEDSIDE procedure a re in the results section . POCT-GLUCOSE METER Routine 01/26/2020 10:01 AM CDT Results for this procedure are i n the results section . POCT-GLUCOSE METER Routine 01/26/2020 9:14 AM CDT Results for this procedure are i n the results section . POCT-GLUCOSE METER Routine 01/26/2020 8:21 AM CDT Results for this procedure are i n the results section . POCT-GLUCOSE METER Routine 01/26/2020 7:24 AM CDT Results for this procedure are i n the results section . PH, ARTERIAL Routine 01/26/2020 7:21 AM CDT Resu lts for this procedure are i n the results section . POTASSIUM Routine 01/26/2020 7:21 AM CDT Resu lts for this procedure are i n the results section . POCT-GLUCOSE METER Routine 01/26/2020 6:34 AM CDT Results for this procedure are i n the results section . POCT-GLUCOSE METER Routine 01/26/2020 5:43 AM CDT Results for this procedure are i n the results section . CALCIUM, IONIZED STAT 01/26/2020 4:11 AM CDT Results for this procedure are i n the results section . POCT-GLUCOSE METER Routine 01/26/2020 3:52 AM CDT Results for this procedure are i n the results section . LACTIC ACID, ARTERIAL Routine 01/26/2020 2:10 AM CDT Results for this procedure are i n the results section . PROTHROMBIN TIME/INR Routine 01/26/2020 2:06 AM CDT Results for this procedure are i n the results section . TYPE AND SCREEN, AUTOMATED STAT 01/26/2020 2:05 AM CDT Results for this procedure are i n the results section . BLOOD GAS, ARTERIAL STAT 01/26/2020 2:05 AM CDT Results for this procedure are i n the results section . RRL CRITICAL LABS STAT 01/26/2020 2:05 AM CDT Results for this (ABG,NA,K,H&H,GLUCOSE) proce dure are in the results section . VANCOMYCIN LEVEL, RANDOM Routine 01/26/2020 2:05 AM CDT Results for this procedure are i n the results section . OXYGEN SATURATION, MEASURED Routine 01/26/2020 2:05 AM CDT Results for this procedure are i n the results section . BASIC METABOLIC PANEL (7) Routine 01/26/2020 2:05 AM CDT Results for this procedure are i n the results section . HEPATIC FUNCTION PANEL Routine 01/26/2020 2:05 AM CDT Results for this procedure are i n the results section . MAGNESIUM Routine 01/26/2020 2:05 AM CDT Resu lts for this procedure are i n the results section . PHOSPHORUS Routine 01/26/2020 2:05 AM CDT Resu lts for this procedure are i n the results section . CBC (HEMOGRAM ONLY) Routine 01/26/2020 2:05 AM CDT Results for this procedure are i n the results section . POCT-GLUCOSE METER Routine 01/26/2020 1:37 AM CDT Results for this procedure are i n the results section . POCT-GLUCOSE METER Routine 01/26/2020 12:26 AM CDT Results for this procedure are i n the results section . PH, ARTERIAL Routine 01/25/2020 11:18 PM CDT Resu lts for this procedure are i n the results section . POTASSIUM Routine 01/25/2020 11:18 PM CDT Resu lts for this procedure are i n the results section . CALCIUM, IONIZED STAT 01/25/2020 11:18 PM CDT Results for this procedure are i n the results section . POCT-GLUCOSE METER Routine 01/25/2020 10:27 PM CDT Results for this procedure are i n the results section . POCT-GLUCOSE METER Routine 01/25/2020 8:47 PM CDT Results for this procedure are i n the results section . BASIC METABOLIC PANEL (7) Routine 01/25/2020 7:12 PM CDT Results for this procedure are i n the results section . MAGNESIUM Routine 01/25/2020 7:12 PM CDT Resu lts for this procedure are i n the results section . PHOSPHORUS Routine 01/25/2020 7:12 PM CDT Resu lts for this procedure are i n the results section . POCT-GLUCOSE METER Routine 01/25/2020 6:28 PM CDT Results for this procedure are i n the results section . PH, ARTERIAL Routine 01/25/2020 6:22 PM CDT Resu lts for this procedure are i n the results section . TRANSFUSION SERVICE REPORT - 01/25/2020 5:52 PM CDT SCAN POCT-GLUCOSE METER Routine 01/25/2020 4:18 PM CDT Results for this procedure are i n the results section . POCT-GLUCOSE METER Routine 01/25/2020 12:34 PM CDT Results for this procedure are i n the results section . BASIC METABOLIC PANEL (7) Routine 01/25/2020 12:25 PM CDT Results for this procedure are i n the results section . MAGNESIUM Routine 01/25/2020 12:25 PM CDT Resu lts for this procedure are i n the results section . PHOSPHORUS Routine 01/25/2020 12:25 PM CDT Resu lts for this procedure are i n the results section . CALCIUM, IONIZED STAT 01/25/2020 12:25 PM CDT Results for this procedure are i n the results section . POCT-GLUCOSE METER Routine 01/25/2020 10:28 AM CDT Results for this procedure are i n the results section . POCT-GLUCOSE METER Routine 01/25/2020 8:01 AM CDT Results for this procedure are i n the results section . BLOOD GAS, ARTERIAL STAT 01/25/2020 7:57 AM CDT Results for this procedure are i n the results section . LACTIC ACID, ARTERIAL STAT 01/25/2020 7:57 AM CDT Results for this procedure are i n the results section . PH, ARTERIAL Routine 01/25/2020 7:57 AM CDT Resu lts for this procedure are i n the results section . POTASSIUM Routine 01/25/2020 7:57 AM CDT Resu lts for this procedure are i n the results section . POCT-GLUCOSE METER Routine 01/25/2020 6:17 AM CDT Results for this procedure are i n the results section . ECG 12-LEAD Routine 01/25/2020 4:24 AM CDT Resu lts for this procedure are i n the results section . POCT-GLUCOSE METER Routine 01/25/2020 3:57 AM CDT Results for this procedure are i n the results section . OXYGEN SATURATION, MEASURED Routine 01/25/2020 3:46 AM CDT Results for this procedure are i n the results section . HEPATIC FUNCTION PANEL Routine 01/25/2020 3:41 AM CDT Results for this procedure are i n the results section . BASIC METABOLIC PANEL (7) Routine 01/25/2020 3:41 AM CDT Results for this procedure are i n the results section . MAGNESIUM Routine 01/25/2020 3:41 AM CDT Resu lts for this procedure are i n the results section . PHOSPHORUS Routine 01/25/2020 3:41 AM CDT Resu lts for this procedure are i n the results section . PT/APTT Routine 01/25/2020 3:41 AM CDT Resu lts for this procedure are i n the results section . CALCIUM, IONIZED STAT 01/25/2020 3:41 AM CDT Results for this procedure are i n the results section . BLOOD GAS, ARTERIAL STAT 01/25/2020 3:41 AM CDT Results for this procedure are i n the results section . LACTIC ACID, ARTERIAL STAT 01/25/2020 3:41 AM CDT Results for this procedure are i n the results section . CBC (HEMOGRAM ONLY) Routine 01/25/2020 3:41 AM CDT Results for this procedure are i n the results section . POCT-GLUCOSE METER Routine 01/25/2020 2:23 AM CDT Results for this procedure are i n the results section . POCT-GLUCOSE METER Routine 01/25/2020 12:42 AM CDT Results for this procedure are i n the results section . BLOOD GAS, ARTERIAL STAT 01/25/2020 12:36 AM CDT Results for this procedure are i n the results section . LACTIC ACID, ARTERIAL STAT 01/25/2020 12:36 AM CDT Results for this procedure are i n the results section . XR CHEST 1 VIEW Routine 01/25/2020 12:28 AM CDT R esults for this PORTABLE/BEDSIDE procedure a re in the results section . PREPARE PLATELETS STAT 01/24/2020 11:54 PM CDT Results for this procedure are i n the results section . PREPARE RBC Routine 01/24/2020 11:54 PM CDT Resu lts for this procedure are i n the results section . BLOOD GAS, ARTERIAL Routine 01/24/2020 10:19 PM CDT Results for this procedure are i n the results section . POCT-GLUCOSE METER Routine 01/24/2020 10:00 PM CDT Results for this procedure are i n the results section . POCT-GLUCOSE METER Routine 01/24/2020 8:37 PM CDT Results for this procedure are i n the results section . PH, ARTERIAL Routine 01/24/2020 8:30 PM CDT Resu lts for this procedure are i n the results section . CBC (HEMOGRAM ONLY) Routine 01/24/2020 8:30 PM CDT Results for this procedure are i n the results section . BASIC METABOLIC PANEL (7) Routine 01/24/2020 8:30 PM CDT Results for this procedure are i n the results section . MAGNESIUM Routine 01/24/2020 8:30 PM CDT Resu lts for this procedure are i n the results section . PHOSPHORUS Routine 01/24/2020 8:30 PM CDT Resu lts for this procedure are i n the results section . CALCIUM, IONIZED STAT 01/24/2020 8:30 PM CDT Results for this procedure are i n the results section . BLOOD GAS, ARTERIAL STAT 01/24/2020 8:30 PM CDT Results for this procedure are i n the results section . LACTIC ACID, ARTERIAL STAT 01/24/2020 8:30 PM CDT Results for this procedure are i n the results section . POCT-GLUCOSE METER Routine 01/24/2020 6:01 PM CDT Results for this procedure are i n the results section . TRANSFUSION SERVICE REPORT - 01/24/2020 5:53 PM CDT SCAN POCT-GLUCOSE METER Routine 01/24/2020 4:16 PM CDT Results for this procedure are i n the results section . BLOOD GAS, ARTERIAL STAT 01/24/2020 4:07 PM CDT Results for this procedure are i n the results section . LACTIC ACID, ARTERIAL STAT 01/24/2020 4:07 PM CDT Results for this procedure are i n the results section . PH, ARTERIAL Routine 01/24/2020 4:07 PM CDT Resu lts for this procedure are i n the results section . POTASSIUM Routine 01/24/2020 4:07 PM CDT Resu lts for this procedure are i n the results section . POCT-GLUCOSE METER Routine 01/24/2020 1:53 PM CDT Results for this procedure are i n the results section . POCT-GLUCOSE METER Routine 01/24/2020 1:00 PM CDT Results for this procedure are i n the results section . POCT-GLUCOSE METER Routine 01/24/2020 11:47 AM CDT Results for this procedure are i n the results section . BASIC METABOLIC PANEL (7) Routine 01/24/2020 11:42 AM CDT Results for this procedure are i n the results section . MAGNESIUM Routine 01/24/2020 11:42 AM CDT Resu lts for this procedure are i n the results section . PHOSPHORUS Routine 01/24/2020 11:42 AM CDT Resu lts for this procedure are i n the results section . CALCIUM, IONIZED STAT 01/24/2020 11:42 AM CDT Results for this procedure are i n the results section . BLOOD GAS, ARTERIAL STAT 01/24/2020 11:42 AM CDT Results for this procedure are i n the results section . LACTIC ACID, ARTERIAL STAT 01/24/2020 11:42 AM CDT Results for this procedure are i n the results section . POCT-GLUCOSE METER Routine 01/24/2020 10:55 AM CDT Results for this procedure are i n the results section . ECG 12-LEAD Routine 01/24/2020 10:37 AM CDT Resu lts for this procedure are i n the results section . ECG 12-LEAD Routine 01/24/2020 10:37 AM CDT Resu lts for this procedure are i n the results section . POCT-GLUCOSE METER Routine 01/24/2020 8:25 AM CDT Results for this procedure are i n the results section . BLOOD GAS, ARTERIAL STAT 01/24/2020 8:19 AM CDT Results for this procedure are i n the results section . LACTIC ACID, ARTERIAL STAT 01/24/2020 8:19 AM CDT Results for this procedure are i n the results section . PH, ARTERIAL Routine 01/24/2020 8:19 AM CDT Resu lts for this procedure are i n the results section . ECG 12-LEAD Routine 01/24/2020 5:50 AM CDT Resu lts for this procedure are i n the results section . ECG 12-LEAD KLARISSA 01/24/2020 5:41 AM CDT Resu lts for this procedure are i n the results section . BASIC METABOLIC PANEL (7) STAT 01/24/2020 3:43 AM CDT Results for this procedure are i n the results section . HEPATIC FUNCTION PANEL Routine 01/24/2020 3:43 AM CDT Results for this procedure are i n the results section . CALCIUM Routine 01/24/2020 3:43 AM CDT Resu lts for this procedure are i n the results section . MAGNESIUM Routine 01/24/2020 3:43 AM CDT Resu lts for this procedure are i n the results section . PHOSPHORUS Routine 01/24/2020 3:43 AM CDT Resu lts for this procedure are i n the results section . PT/APTT Routine 01/24/2020 3:43 AM CDT Resu lts for this procedure are i n the results section . OXYGEN SATURATION, MEASURED Routine 01/24/2020 3:43 AM CDT Results for this procedure are i n the results section . CALCIUM, IONIZED STAT 01/24/2020 3:43 AM CDT Results for this procedure are i n the results section . BLOOD GAS, ARTERIAL STAT 01/24/2020 3:43 AM CDT Results for this procedure are i n the results section . LACTIC ACID, ARTERIAL STAT 01/24/2020 3:43 AM CDT Results for this procedure are i n the results section . CBC (HEMOGRAM ONLY) Routine 01/24/2020 3:43 AM CDT Results for this procedure are i n the results section . POTASSIUM Routine 01/24/2020 3:43 AM CDT Resu lts for this procedure are i n the results section . XR CHEST 1 VIEW Routine 01/24/2020 12:49 AM CDT R esults for this PORTABLE/BEDSIDE procedure a re in the results section . POCT-GLUCOSE METER Routine 01/23/2020 11:40 PM CDT Results for this procedure are i n the results section . BLOOD GAS, ARTERIAL STAT 01/23/2020 11:36 PM CDT Results for this procedure are i n the results section . LACTIC ACID, ARTERIAL STAT 01/23/2020 11:36 PM CDT Results for this procedure are i n the results section . PHOSPHORUS Routine 01/23/2020 11:36 PM CDT Resu lts for this procedure are i n the results section . PH, ARTERIAL Routine 01/23/2020 11:36 PM CDT Resu lts for this procedure are i n the results section . MAGNESIUM Routine 01/23/2020 11:36 PM CDT Resu lts for this procedure are i n the results section . BASIC METABOLIC PANEL (7) Routine 01/23/2020 11:36 PM CDT Results for this procedure are i n the results section . OXYGEN SATURATION, MEASURED STAT 01/23/2020 10:56 PM CDT Results for this procedure are i n the results section . HGB/HCT (H&H) - STAT LAB STAT 01/23/2020 10:54 PM CDT Results for this procedure are i n the results section . POCT-GLUCOSE METER Routine 01/23/2020 9:16 PM CDT Results for this procedure are i n the results section . ECHOCARDIOGRAM REPORT - SCAN 01/23/2020 9:12 PM CDT PERIPHERAL VASCULAR REPORT - 01/23/2020 9:12 PM CDT SCAN LACTIC ACID, ARTERIAL Routine 01/23/2020 8:03 PM CDT Results for this procedure are i n the results section . BLOOD GAS, ARTERIAL STAT 01/23/2020 8:03 PM CDT Results for this procedure are i n the results section . OXYGEN SATURATION, MEASURED Routine 01/23/2020 8:03 PM CDT Results for this procedure are i n the results section . MAGNESIUM Routine 01/23/2020 8:03 PM CDT Resu lts for this procedure are i n the results section . CALCIUM, IONIZED Routine 01/23/2020 8:03 PM CDT Results for this procedure are i n the results section . HGB/HCT (H&H) - STAT LAB STAT 01/23/2020 7:05 PM CDT Results for this procedure are i n the results section . GLUCOSE-STAT LAB STAT 01/23/2020 7:05 PM CDT Results for this procedure are i n the results section . POTASSIUM-STAT LAB STAT 01/23/2020 7:05 PM CDT Results for this procedure are i n the results section . SODIUM NA-STAT LAB STAT 01/23/2020 7:05 PM CDT Results for this procedure are i n the results section . BLOOD GAS, ARTERIAL STAT 01/23/2020 7:05 PM CDT Results for this procedure are i n the results section . RRL CRITICAL LABS STAT 01/23/2020 7:05 PM CDT Results for this (ABG,NA,K,H&H,GLUCOSE) proce dure are in the results section . HGB/HCT (H&H) - STAT LAB STAT 01/23/2020 5:58 PM CDT Results for this procedure are i n the results section . GLUCOSE-STAT LAB STAT 01/23/2020 5:58 PM CDT Results for this procedure are i n the results section . POTASSIUM-STAT LAB STAT 01/23/2020 5:58 PM CDT Results for this procedure are i n the results section . SODIUM NA-STAT LAB STAT 01/23/2020 5:58 PM CDT Results for this procedure are i n the results section . BLOOD GAS, ARTERIAL STAT 01/23/2020 5:58 PM CDT Results for this procedure are i n the results section . RRL CRITICAL LABS STAT 01/23/2020 5:58 PM CDT Results for this (ABG,NA,K,H&H,GLUCOSE) proce dure are in the results section . TRANSFUSION SERVICE REPORT - 01/23/2020 5:51 PM CDT SCAN HGB/HCT (H&H) - STAT LAB STAT 01/23/2020 5:03 PM CDT Results for this procedure are i n the results section . GLUCOSE-STAT LAB STAT 01/23/2020 5:03 PM CDT Results for this procedure are i n the results section . POTASSIUM-STAT LAB STAT 01/23/2020 5:03 PM CDT Results for this procedure are i n the results section . SODIUM NA-STAT LAB STAT 01/23/2020 5:03 PM CDT Results for this procedure are i n the results section . BLOOD GAS, ARTERIAL STAT 01/23/2020 5:03 PM CDT Results for this procedure are i n the results section . RRL CRITICAL LABS STAT 01/23/2020 5:03 PM CDT Results for this (ABG,NA,K,H&H,GLUCOSE) proce dure are in the results section . HGB/HCT (H&H) - STAT LAB STAT 01/23/2020 4:08 PM CDT Results for this procedure are i n the results section . GLUCOSE-STAT LAB STAT 01/23/2020 4:08 PM CDT Results for this procedure are i n the results section . POTASSIUM-STAT LAB STAT 01/23/2020 4:08 PM CDT Results for this procedure are i n the results section . SODIUM NA-STAT LAB STAT 01/23/2020 4:08 PM CDT Results for this procedure are i n the results section . BLOOD GAS, ARTERIAL STAT 01/23/2020 4:08 PM CDT Results for this procedure are i n the results section . RRL CRITICAL LABS STAT 01/23/2020 4:08 PM CDT Results for this (ABG,NA,K,H&H,GLUCOSE) proce dure are in the results section . LACTIC ACID, ARTERIAL STAT 01/23/2020 4:08 PM CDT Results for this procedure are i n the results section . PHOSPHORUS Routine 01/23/2020 4:08 PM CDT Resu lts for this procedure are i n the results section . MAGNESIUM Routine 01/23/2020 4:08 PM CDT Resu lts for this procedure are i n the results section . POTASSIUM STAT 01/23/2020 2:37 PM CDT Resu lts for this procedure are i n the results section . GLUCOSE STAT 01/23/2020 2:37 PM CDT Resu lts for this procedure are i n the results section . BLOOD GAS, ARTERIAL STAT 01/23/2020 2:37 PM CDT Results for this procedure are i n the results section . LACTIC ACID, ARTERIAL STAT 01/23/2020 2:37 PM CDT Results for this procedure are i n the results section . BASIC METABOLIC PANEL (7) STAT 01/23/2020 2:37 PM CDT Results for this procedure are i n the results section . HEPATITIS B SURFACE ANTIGEN Routine 01/23/2020 2:37 PM CDT Results for this procedure are i n the results section . POCT-GLUCOSE METER Routine 01/23/2020 2:18 PM CDT Results for this procedure are i n the results section . POCT-GLUCOSE METER Routine 01/23/2020 1:18 PM CDT Results for this procedure are i n the results section . ECG 12-LEAD Routine 01/23/2020 12:05 PM CDT Resu lts for this procedure are i n the results section . ECG 12-LEAD Routine 01/23/2020 12:05 PM CDT Procedure Note - Interface, External Ris In - 01/23/2020 12:09 PM CDT Ventricular Rate 76 BPM Atrial Rate 76 BPM QRS Duration 90 ms Q-T Interval 470 ms QTC Calculation(Bazett) 528 ms P [place] 66 degrees R [place] 23 degrees T [place] 76 degrees Normal sinus rhythm Low voltage QRS Anterolateral infarct , poss ibly acute Prolonged QT ACUTE OH / STEMI Abnormal ECG ECG 12-LEAD Routine 01/23/2020 12:04 PM CDT Resu lts for this procedure are in the results section . ECG 12-LEAD Routine 01/23/2020 12:04 PM CDT Procedure Note - Interface, External Ris In - 01/23/2020 12:09 PM CDT Ventricular Rate 74 BPM Atrial Rate 74 BPM QRS Duration 90 ms Q-T Interval 460 ms QTC Calculation(Bazett) 510 ms P [place] 71 degrees R [place] 13 degrees T [place] 76 degrees Normal sinus rhythm with sin us arrhythmia Low voltage QRS Anterolateral infarct , poss ibly acute Prolonged QT ACUTE OH / STEMI Abnormal ECG ECG 12-LEAD Routine 01/23/2020 12:04 PM CDT Resu lts for this procedure are in the results section . ECG 12-LEAD Routine 01/23/2020 12:04 PM CDT Procedure Note - Interface, External Ris In - 01/23/2020 12:09 PM CDT Ventricular Rate 76 BPM Atrial Rate 76 BPM QRS Duration 90 ms Q-T Interval 444 ms QTC Calculation(Bazett) 499 ms P [place] 69 degrees R [place] -5 degrees T [place] 72 degrees Normal sinus rhythm Low voltage QRS Anterolateral infarct , poss ibly acute ACUTE OH / STEMI Abnormal ECG ECG 12-LEAD Routine 01/23/2020 12:01 PM CDT Procedure Note - Interface, External Ris In - 01/23/2020 12:08 PM CDT Ventricular Rate 76 BPM Atrial Rate 76 BPM QRS Duration 82 ms Q-T Interval 450 ms QTC Calculation(Bazett) 506 ms P [place] 63 degrees R [place]coe -46 degrees T [place] 69 degrees Normal sinus rhythm Left axis deviation Low voltage QRS Anteroseptal infarct , possi maribell acute Lateral injury pattern Prolonged QT ACUTE OH / STEMI Abnormal ECG ECG 12-LEAD STAT 01/23/2020 12:01 Results for this PM CDT procedure are i n the results section. XR CHEST 1 VIEW STAT 01/23/2020 12:01 Results for this PORTABLE/BEDSIDE PM CDT procedure a re in the results section. PHOSPHORUS STAT 01/23/2020 11:56 Results for this AM CDT procedure are i n the results section. MAGNESIUM STAT 01/23/2020 11:56 Results for this AM CDT procedure are i n the results section. BASIC METABOLIC PANEL STAT 01/23/2020 11:56 Re sults for this (7) AM CDT procedure are i n the results section. OXYGEN SATURATION, STAT 01/23/2020 11:23 Resul ts for this MEASURED AM CDT procedure are i n the results section. CBC W/PLT COUNT & STAT 01/23/2020 11:22 Result s for this AUTO DIFFERENTIAL AM CDT procedure are in the results section. HGB/HCT (H&H) - STAT STAT 01/23/2020 11:22 Res ults for this LAB AM CDT procedure are i n the results section. GLUCOSE-STAT LAB STAT 01/23/2020 11:22 Results for this AM CDT procedure are i n the results section. POTASSIUM-STAT LAB STAT 01/23/2020 11:22 Resul ts for this AM CDT procedure are i n the results section. SODIUM NA-STAT LAB STAT 01/23/2020 11:22 Resul ts for this AM CDT procedure are i n the results section. PLATELET COUNT STAT 01/23/2020 11:22 Results f or this AM CDT procedure are i n the results section. FIBRINOGEN STAT 01/23/2020 11:22 Results for this AM CDT procedure are i n the results section. APTT STAT 01/23/2020 11:22 Results for this AM CDT procedure are i n the results section. PROTHROMBIN TIME/INR STAT 01/23/2020 11:22 Res ults for this AM CDT procedure are i n the results section. BLOOD GAS, ARTERIAL STAT 01/23/2020 11:22 Resu lts for this AM CDT procedure are i n the results section. RRL CRITICAL LABS STAT 01/23/2020 11:22 Result s for this (ABG,NA,K,H&H,GLUCOSE AM CDT proced ure are in ) the results section. LACTIC ACID, ARTERIAL STAT 01/23/2020 11:22 Re sults for this AM CDT procedure are i n the results section. CALCIUM, IONIZED STAT 01/23/2020 11:22 Results for this AM CDT procedure are i n the results section. CBC W/PLT COUNT & STAT 01/23/2020 11:22 Result s for this AUTO DIFFERENTIAL AM CDT procedure are in the results section. HGB/HCT (H&H) - STAT STAT 01/23/2020 10:34 Res ults for this LAB AM CDT procedure are i n the results section. GLUCOSE-STAT LAB STAT 01/23/2020 10:34 Results for this AM CDT procedure are i n the results section. POTASSIUM-STAT LAB STAT 01/23/2020 10:34 Resul ts for this AM CDT procedure are i n the results section. SODIUM NA-STAT LAB STAT 01/23/2020 10:34 Resul ts for this AM CDT procedure are i n the results section. BLOOD GAS, ARTERIAL STAT 01/23/2020 10:34 Resu lts for this AM CDT procedure are i n the results section. CALCIUM, IONIZED STAT 01/23/2020 10:34 Results for this AM CDT procedure are i n the results section. RRL CRITICAL LABS STAT 01/23/2020 10:34 Result s for this (ABG,NA,K,H&H,GLUCOSE AM CDT proced ure are in ) the results section. POCT-ACT Routine 01/23/2020 10:05 Results for this AM CDT procedure are i n the results section. TRANSFUSE Routine 01/23/2020 10:03 LEUKO-REDUCED AM CDT PLATELETS TRANSFUSE Routine 01/23/2020 10:03 LEUKO-REDUCED AM CDT PLATELETS GLUCOSE-STAT LAB STAT 01/23/2020 9:53 Results for this AM CDT procedure are i n the results section. POTASSIUM-STAT LAB STAT 01/23/2020 9:53 Resul ts for this AM CDT procedure are i n the results section. SODIUM NA-STAT LAB STAT 01/23/2020 9:53 Resul ts for this AM CDT procedure are i n the results section. BLOOD GAS, ARTERIAL STAT 01/23/2020 9:53 Resu lts for this AM CDT procedure are i n the results section. HGB/HCT (H&H) - STAT STAT 01/23/2020 9:53 Res ults for this LAB AM CDT procedure are i n the results section. PLATELET COUNT STAT 01/23/2020 9:53 Results f or this AM CDT procedure are i n the results section. FIBRINOGEN STAT 01/23/2020 9:53 Results for this AM CDT procedure are i n the results section. APTT STAT 01/23/2020 9:53 Results for this AM CDT procedure are i n the results section. PROTHROMBIN TIME/INR STAT 01/23/2020 9:53 Res ults for this AM CDT procedure are i n the results section. RRL CRITICAL LABS STAT 01/23/2020 9:53 Result s for this (ABG,NA,K,H&H,GLUCOSE AM CDT proced ure are in ) the results section. CALCIUM, IONIZED STAT 01/23/2020 9:53 Results for this AM CDT procedure are i n the results section. RRL CRITICAL LABS STAT 01/23/2020 9:53 Result s for this (ABG,NA,K,H&H,GLUCOSE AM CDT proced ure are in ) the results section. CBC W/PLT COUNT & Routine 01/23/2020 9:53 Result s for this AUTO DIFFERENTIAL AM CDT procedure are in the results section. CBC W/PLT COUNT & STAT Add-on 01/23/2020 9:53 Result s for this AUTO DIFFERENTIAL AM CDT procedure are in the results section. POCT-ACT Routine 01/23/2020 9:28 Results for this AM CDT procedure are i n the results section. HGB/HCT (H&H) - STAT STAT 01/23/2020 9:27 Res ults for this LAB AM CDT procedure are i n the results section. GLUCOSE-STAT LAB STAT 01/23/2020 9:27 Results for this AM CDT procedure are i n the results section. POTASSIUM-STAT LAB STAT 01/23/2020 9:27 Resul ts for this AM CDT procedure are i n the results section. SODIUM NA-STAT LAB STAT 01/23/2020 9:27 Resul ts for this AM CDT procedure are i n the results section. BLOOD GAS, ARTERIAL STAT 01/23/2020 9:27 Resu lts for this AM CDT procedure are i n the results section. RRL CRITICAL LABS STAT 01/23/2020 9:27 Result s for this (ABG,NA,K,H&H,GLUCOSE AM CDT proced ure are in ) the results section. POCT-ACT Routine 01/23/2020 9:04 Results for this AM CDT procedure are i n the results section. TRANSFUSE Routine 01/23/2020 9:02 LEUKO-REDUCED RED AM CDT BLOOD CELLS HGB/HCT (H&H) - STAT STAT 01/23/2020 9:01 Res ults for this LAB AM CDT procedure are i n the results section. GLUCOSE-STAT LAB STAT 01/23/2020 9:01 Results for this AM CDT procedure are i n the results section. POTASSIUM-STAT LAB STAT 01/23/2020 9:01 Resul ts for this AM CDT procedure are i n the results section. SODIUM NA-STAT LAB STAT 01/23/2020 9:01 Resul ts for this AM CDT procedure are i n the results section. BLOOD GAS, ARTERIAL STAT 01/23/2020 9:01 Resu lts for this AM CDT procedure are i n the results section. RRL CRITICAL LABS STAT 01/23/2020 9:01 Result s for this (ABG,NA,K,H&H,GLUCOSE AM CDT proced ure are in ) the results section. SURGICALLY OBTAINED KLARISSA 01/23/2020 8:47 Resu lts for this CULTURE + GRAM STAIN AM CDT procedu re are in the results section. FUNGUS CULTURE + KLARISSA 01/23/2020 8:47 Results for this SMEAR AM CDT procedure are i n the results section. AFB CULTURE + SMEAR KLARISSA 01/23/2020 8:47 Resu lts for this (NON-SPUTUM) AM CDT procedure are i n the results section. ANAEROBIC CULTURE KLARISSA 01/23/2020 8:47 Result s for this AM CDT procedure are i n the results section. SPIN/CONCENTRATION Routine 01/23/2020 8:47 Resul ts for this CHARGE AM CDT procedure are i n the results section. POCT-ACT Routine 01/23/2020 8:44 Results for this AM CDT procedure are i n the results section. ANESTHESIA DONELL Routine 01/23/2020 8:20 Results f or this AM CDT procedure are i n the results section. TRANSFUSE Routine 01/23/2020 8:16 LEUKO-REDUCED RED AM CDT BLOOD CELLS HGB/HCT (H&H) - STAT STAT 01/23/2020 8:00 Res ults for this LAB AM CDT procedure are i n the results section. GLUCOSE-STAT LAB STAT 01/23/2020 8:00 Results for this AM CDT procedure are i n the results section. POTASSIUM-STAT LAB STAT 01/23/2020 8:00 Resul ts for this AM CDT procedure are i n the results section. SODIUM NA-STAT LAB STAT 01/23/2020 8:00 Resul ts for this AM CDT procedure are i n the results section. BLOOD GAS, ARTERIAL STAT 01/23/2020 8:00 Resu lts for this AM CDT procedure are i n the results section. CALCIUM, IONIZED STAT 01/23/2020 8:00 Results for this AM CDT procedure are i n the results section. RRL CRITICAL LABS STAT 01/23/2020 8:00 Result s for this (ABG,NA,K,H&H,GLUCOSE AM CDT proced ure are in ) the results section. 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 CBC W/PLT COUNT & AUTO Routine 01/23/2020 3:34 AM Results for this DIFFERENTIAL CDT procedure are i n the results section . PHOSPHORUS STAT Add-on 01/23/2020 3:34 AM Results for this CDT procedure are i n the results section . MAGNESIUM STAT Add-on 01/23/2020 3:34 AM Results for this CDT procedure are i n the results section . CBC W/PLT COUNT & AUTO Routine 01/23/2020 3:34 AM Results for this DIFFERENTIAL CDT procedure are i n the results section . TROPONIN I Routine 01/23/2020 3:34 AM Results for this CDT procedure are i n the results section . COMPREHENSIVE METABOLIC Routine 01/23/2020 3:34 AM Results for this PANEL CDT procedure are i n the results section . APTT Routine 01/23/2020 3:34 AM Results for this CDT procedure are i n the results section . CAROTID DOPPLER BILATERAL Routine 01/23/2020 12:24 AM Results for this CDT procedure are i n the results section . XR CHEST 1 VIEW STAT 01/22/2020 11:21 PM Resul ts for this PORTABLE/BEDSIDE CDT procedure a re in the results section . XR CHEST 1 VIEW STAT 01/22/2020 10:34 PM Resul ts for this PORTABLE/BEDSIDE CDT procedure a re in the results section . 2D ECHO W/ DOPPLER STAT 01/22/2020 8:43 PM Re sults for this (CW/PW/COLOR) CDT procedure are in the results section . SARS-COV2/RT-PCR ([facility] & REF STAT 01/22/2020 6:07 PM Results for this LABS) CDT procedure are i n the results section . APTT Routine 01/22/2020 6:06 PM Results for this CDT procedure are i n the results section . ECG 12-LEAD Routine 01/22/2020 5:48 PM CDT Procedure Note - Interface, External Ris In - 01/22/2020 6:00 PM CDT Ventricular Rate 74 BPM Atrial Rate 74 BPM P-R Interval 152 ms QRS Duration 124 ms Q-T Interval 476 ms QTC Calculation(Bazett) 528 ms P [place] 45 degrees R [place] -75 degrees T [place] 85 degrees Normal sinus rhythm Left axis deviation Anteroseptal infarct , age u ndetermined Abnormal ECG ECG 12-LEAD Routine 01/22/2020 5:48 PM CDT Resu lts for this procedure are i n the results section . XR CHEST 1 VIEW Routine 01/22/2020 3:23 PM CDT R esults for this PORTABLE/BEDSIDE procedure a re in the results section . TROPONIN I Add-On 01/22/2020 2:08 PM CDT Resu lts for this procedure are i n the results section . MAGNESIUM Routine 01/22/2020 2:08 PM CDT Resu lts for this procedure are i n the results section . LIPID PANEL Routine 01/22/2020 2:08 PM CDT Resu lts for this procedure are i n the results section . COMPREHENSIVE METABOLIC Routine 01/22/2020 2:08 PM CDT Results for this PANEL procedure are i n the results section . ECG 12-LEAD STAT 01/22/2020 1:30 PM CDT Resu lts for this procedure are i n the results section . ECG 12-LEAD Routine 01/22/2020 1:30 PM CDT Procedure Note - Interface, External Ris In - 01/22/2020 4:55 PM CDT Ventricular Rate 77 BPM Atrial Rate 77 BPM P-R Interval 174 ms QRS Duration 116 ms Q-T Interval 464 ms QTC Calculation(Bazett) 525 ms P [place] 63 degrees R [place] -79 degrees T [place] 83 degrees Normal sinus rhythm Left axis deviation Septal infarct , age undeter mined T wave abnormality, consider anterior ischemia Prolonged QT Abnormal ECG When compared with ECG of 14:16, Questionable change in QRS d uration Septal infarct is now Presen t POCT-GLUCOSE METER Routine 01/22/2020 1:28 PM CDT Results for this procedure are i n the results section . CBC W/PLT COUNT & AUTO Routine 01/22/2020 1:23 PM CDT Results for this DIFFERENTIAL procedure are i n the results section . TYPE AND SCREEN, AUTOMATED Routine 01/22/2020 1:23 PM CDT Results for this procedure are i n the results section . PROTHROMBIN TIME/INR Routine 01/22/2020 1:23 PM CDT Results for this procedure are i n the results section . HEMOGLOBIN A1C Routine 01/22/2020 1:23 PM CDT Re sults for this procedure are i n the results section . CBC W/PLT COUNT & AUTO Routine 01/22/2020 1:23 PM CDT Results for this DIFFERENTIAL procedure are i n the results section . APTT Routine 01/22/2020 1:23 PM CDT Resu lts for this procedure are i n the results section . after 03/30/2019 Results RHYTHM STRIP - SCAN (03/01/2020 11:05 AM CDT)Only the most recent of4 results within the time period is included. Narrative Performed At This result has an attachment that is no t available. EKG-SCANNED (03/01/2020 11:05 AM CDT) Narrative Performed At This result has an attachment that is no t available. ARRYTHMIA IMPLANT REPORT - SCAN (03/01/2020 11:05 AM CDT)Only the most recent of 2 resultswithin the time period is included. Narrative Performed At This result has an attachment that is no t available. VASCULAR DIAGRAM -SCAN (03/01/2020 11:04 AM CDT) Narrative Performed At This result has an attachment that is no t available. CARDIAC CATH REPORT - SCAN (03/01/2020 11:04 AM CDT) Narrative Performed At This result has an attachment that is no t available. POC-Glucose meter (02/28/2020 11:26 AM CDT)Only the most recent of175 results within the time period is included. POC-Glucose Meter 78Comment: : TESTED AT 70 - 110 mg/dL [facility] [address] [place] [address], [id number]: Ice Cream Freezer Assistant/Trust And Estates Attorney ID = [id number] for GAEL GATES Specimen Blood Performing Organization Address City/[facility] Phone Number [address] [address] [place] Daily Prothrombin time/INR while on warfarin (02/28/2020 4:29 AM CDT)Only the most recent of34 resultswithin the time period is included. Protime 26.3 (H) 11.9 - 14.2 seconds [facility] INR 2.5 <=5.9 [facility] Specimen Blood Narrative Performed At Effective 02/08/2019: PT Reference Range [facility] Change New: 11.9-14.2Previous: 11.7-14.7 RECOMMENDED COUMADIN/WARFARIN INR THERAPY RANGES STANDARD DOSE: 2.0-3.0Includes: PROPHYLAXIS for venous thrombosis, systemic embolization; TREATMENT for venous thrombosis and/or pulmonary embolus. HIGH RISK: Target INR is 2.5-3.5 for patients wiht mechanical heart valves. While on warfarin. Performing Organization Address City/[facility]ode Phone Number [address] [address] [place] CBC (Hemogram only) (02/28/2020 4:29 AM CDT)Only the most recent of37 results within the time period is included. WBC 7.3 3.5 - 10.5 K/L [facility] RBC 2.88 (L) 4.63 - 6.08 M/L [facility] Hemoglobin 8.8 (L) 13.7 - 17.5 GM/DL [facility] Hematocrit 30.2 (L) 40.1 - 51.0 % [facility] MCV 104.9 (H) 79.0 - 92.2 fL [facility] MCH 30.6 25.7 - 32.2 pg [facility] MCHC 29.1 (L) 32.3 - 36.5 GM/DL [facility] RDW 18.1 (H) 11.6 - 14.4 % [facility] Platelets 192 150 - 450 K/CU MM [facility] MPV 9.8 9.4 - 12.4 fL [facility] nRBC 0 0 - 0 /100 WBC [facility] Specimen Blood Performing Organization Address City/State/Zipcode Phone Number [facility] [address] [place] [address] CENTER Basic Metabolic Panel (02/28/2020 4:29 AM CDT)Only the most recent of47 results within the time period is included. Sodium 137 136 - 145 meq/L [facility] Potassium 4.2 3.5 - 5.1 meq/L [facility] Chloride 99 98 - 107 meq/L [facility] CO2 27 22 - 29 meq/L [facility] BUN 30 (H) 7 - 21 mg/dL [facility] Creatinine 4.31 (H) 0.57 - 1.25 mg/dL [facility] Glucose 69 (L) 70 - 105 mg/dL [facility] Calcium 8.3 (L) 8.4 - 10.2 mg/dL [facility] EGFR 13Comment: ESTIMATED GFR IS mL/min/1.73 sq m [facility] NOT ACCURATE CREATININE [facility] CENTER CLEARANCE IN PREDICTING GLOMERULAR FILTRATION RATE. ESTIMATED GFR IS NOT APPLICABLE FOR DIALYSIS PATIENTS. Specimen Blood Narrative Performed At Ice Cream Freezer Assistant ID - PIAYA L [facility] Performing Organization Address City/State/Zipcode Phone Number [facility] [address] [place] [address] CENTER Limited 2D Echocardiogram (02/27/2020 3:35 PM CDT) Ejection Fraction [facility] ECHO HEAR TLAB [facility] Specimen Narrative Performed At Transthoracic Echocardiography Report (T TE) [facility] ECHO HEARTLAB [facility] Demographics Patient Name Aniket DAVIS of Study 02/27/2020 MIGUEL [id number] Gender Male Visit Number [id number] [facility] [id number] Room Number [id number] Number Date of Birth1935 Referring Physician Anselmo Ahmadi Age84 year(s) Lubricating Specialist Radha ParsonstIzorenay talavera MD Physician Procedure Type of Study TTE procedure:LIMITED 2D ECHOCARDIOGRAM (Routine) Indications:Shortness of breath. Clinical History HGB 8.7 HCT 28.6 % CAD DM ESRD GOUT HTN RENAL DISORDER AICD BYPASS AORTO CORONARY ALIA/SVG Contrast Medium: Definity. Amount - 2 ml Height: 66 inches Weight: 58.97 kg (130 lbs) BSA: 1.67 m^2 BMI: 20.98 kg/m^2 HR: 80 bpm BP: 100/50 mmHg Summary Limited echo study. The left ventricle is chamber size (by vol index) is severely enlarged (male - LVED vol >100ml/m2). The following segment(s) appear akinetic: apex, mid-distal septum, mid-distal anterior, apex, and mid-distal inferior. Inferolateral and basal anterolateral zelaya contract norm ally. Global LV systolic function moderately reduced . LVEF by Cleary's method of disk assessment is moderately reduced (30-34%) . The LVEF was measured using Cleary's bi-plane method of disk . LA size is severely enlarged (>48 ml/m2 ) . RV chamber size is normal . Global RV systolic function is low norm al . A trace of aortic regurgitation. Estimated peak systolic PA pressure is 30-35 mmHg (normal range) . The estimated RA pressure by IVC dynamics 5- 10 mmHg . A large left pleural effusion is noted. Previous Study Compared to the previous study 02-20-20 no pericardial effusion is seen, LVEF is 30-34%. Signature Findings Left Ventricle Limited echo study. Th e left ventricle is chamber size (by vol index) is severely enlarged (male - LVED vol >100m l/m2). No rmal LV wall thickness. Se ptal motion is abnormal, likely related to prior ca rdiac surgery . Th e following segment(s) appear akinetic: apex, mi d-distal septum, mid-distal anterior, ap ex, and mi d-distal inferior. Inferolateral and bas al an terolateral zelaya contract normally. Gl obal LV systolic function moderately red uced . LV EF by Cleary's method of disk assessmen t is mo derately reduced (30-34%) . Th e LVEF was measured using Cleary's bi-p char me thod of disk . LV endocardium is adequately visualized wit h IV ul trasound enhancing agent. Left AtriumLA size is severely enlarged (>48 ml/m2) . Right VentricleRV pacing wire is visualized . RV chamber size is normal . Gl obal RV systolic function is low normal . Right Atrium RA pacing wire is visualized . RA cavity size is normal . Aortic Valve Mild AoV cusp calcification. Ao V cusp mobility is mildly decreased . A trace of aortic regurgitation. Mitral Valve Mild mitral annular calcification. Mi ld MV leaflet calcification. Tricuspid ValveA trace of tricuspid regurgitation. TV structure is normal. Es timated peak systolic PA pressure is 30- 35 mmHg (n ormal range) . Pulmonic Valve PV is not well visualized. AortaAortic root size (SInus of Valsalva diameter) i s rick rderline dilated . PericardiumNo significant pericardial effusion is visualized. IVC/SVC/PA/PV/PleuralA large left pleural effusion is noted. Th e estimated RA pressure by IVC dynamics 5- 10 mm Hg . Chambers/Structures Left Atrium LA Volume: 115 ml LA Vol. Index: 69 ml/m^2 Left Ventricle LVIDd: 6.6 cm LV Septum Diastolic: 0.95 cm LV PW Diastolic: 1.1 cm LVEDV Cleary's:268.82 ml LVESV Cleary's:185.7 ml LVEF Cleary's: 30.9 % LVEDVI: 161 ml/m^2 LVESVI: 111 ml/m^2 LVOT Diameter: 2 cm Right Atrium RA Vol. (Sngl Plane): 3 8.2 ml Aorta Ao Root S of Shazia.: 3.49 cm Doppler/Quantitative Measurements Aortic Valve Peak Velocity: 1.39 m/sMean Velocity: 1.04 m/s Peak Gradient: 7.78 mmHg Mean Gradient: 4.67 mmHg AV Area (continuity): 2.6 cm^2 Area (2D): 2.69 cm^2 AV VTI: 24.46 cm AV DVI: 0.83 LVOT Peak Velocity: 1.08 m/s Peak Gradient: 4.7 mmHg Mean Velocity: 0.73 m/s Mean Gradient: 2.52 mmHg LVOT Diameter: 2 cm LVOT VTI: 20.24 cm LVOT Area: 3.14 cm^2LVOT SV:63.55 ml LVOT CO: 5.08 l/min LVOT CI: 3.04 l/min/m^2 Tricuspid Valve TR Velocity: 2.49 m/s TR Gradient: 24.74 mmHg Procedure Note Interface, External Ris In - 02/27/2020 5:37 PM CDT Transthoracic Echocardiography Report (TTE) Demographics Patient Name STEVE DAVIS Date of Study 02/27/2020 MIGUEL Gende r Male Visit Number [id number] Race Room Number 1055 Number Date of 1935 Refer ring Physician Anselmo Montenegro S Age 84 year(s) Sonog rapher Abed Brian Lock Maintenance Supervisor Madison Castellanos Inter preting Elly Beard MD Physi jessica Procedure Type of Study TTE procedure:LIMITED 2D ECHO CARDIOGRAM (Routine) Indications:Shortness of breath. Clinical History HGB 8.7 HCT 28.6 % CAD DM ESRD GOUT HTN RENAL DISORDER AICD BYPASS AORTO CORONARY ALIA/SVG Contrast Medium: Definity. Amount - 2 ml Height: 66 inches Weight: 58.97 kg (130 lbs) BSA: 1.67 m^2 BMI: 20.98 kg/m^2 HR: 80 bpm BP: 100/50 mmHg Summary Limited echo study. The left ventricle is chamber size (by vol index) is severely enlarged (male - LVED vol >100ml/m2). The following segment(s) appear akineti c: apex, mid-distal septum, mid-distal anterior, apex, and mid-dist al inferior. Inferolateral and basal anterolateral zelaya contract norm ally. Global LV systolic function moderately reduced . LVEF by Cleary's method of disk assess ment is moderately reduced (30-34%) . The LVEF was measured using Cleary's b i-plane method of disk . LA size is severely enlarged (>48 ml/m2 ) . RV chamber size is normal . Global RV systolic function is low norm al . A trace of aortic regurgitation. Estimated peak systolic PA pressure is 30-35 mmHg (normal range) . The estimated RA pressure by IVC dynami cs 5- 10 mmHg . A large left pleural effusion is noted. Previous Study Compared to the previous study 6-9-20 n o pericardial effusion is seen, LVEF is 30-34%. Signature Findings Left Ventricle Limited echo indra dy. The left ventric le is chamber size (by vol index) is severely enla rged (male - LVED vol >100ml/m2). Normal LV wall t hickness. Septal motion is abnormal, likely related to prior cardiac surgery . The following se gment(s) appear akinetic: apex, mid-distal septu m, mid-distal anterior, apex, and mid-distal infer ior. Inferolateral and basal anterolateral wa lls contract normally. Global LV systol ic function moderately reduced . LVEF by Cleary' s method of disk assessment is moderately reduc ed (30-34%) . The LVEF was teresita sured using Cleary's bi-plane method of disk . LV endocardium i s adequately visualized with IV ultrasound enhan cing agent. Left Atrium LA size is sever vonda enlarged (>48 ml/m2) . Right Ventricle RV pacing wire i s visualized . RV chamber size is normal . Global RV systol ic function is low normal . Right Atrium RA pacing wire i s visualized . RA cavity size i s normal . Aortic Valve Mild AoV cusp ca lcification. AoV cusp mobilit y is mildly decreased . A trace of aorti c regurgitation. Mitral Valve Mild mitral nida lar calcification. Mild MV leaflet calcification. Tricuspid Valve A trace of tricu spid regurgitation. TV structure is normal. Estimated peak s ystolic PA pressure is 30-35 mmHg (normal range) . Pulmonic Valve PV is not well v isualized. Aorta Aortic root size (SInus of Valsalva diameter) is borderline dilat ed . Pericardium No significant p ericardial effusion is visualized. IVC/SVC/PA/PV/Pleural A large left ple ural effusion is noted. The estimated RA pressure by IVC dynamics 5- 10 mmHg . Chambers/Structures Left Atrium LA Volume: 115 ml LA Vol. Index: 69 ml/m^2 Left Ventricle LVIDd: 6.6 cm LV Septum Diastolic: 0.95 cm LV PW Diastolic: 1.1 cm LVEDV Cleary's:268.82 ml LVESV Cleary's:185.7 ml LVEF Cleary's: 30.9 % LVEDVI: 161 ml/m^2 LVESVI: 111 ml/m^2 LVOT Diameter: 2 cm Right Atrium RA Vol. (Sngl Plane): 38.2 ml Aorta Ao Root S of Shazia.: 3.49 cm Doppler/Quantitative Measurements Aortic Valve Peak Velocity: 1.39 m/s Mean Velocity: 1.04 m/s Peak Gradient: 7.78 mmHg Mean Gradient: 4.67 mmHg AV Area (continuity): 2.6 cm^2 Area (2D): 2.69 cm^2 AV VTI: 24.46 cm AV DVI: 0.83 LVOT Peak Velocity: 1.08 m/s Pea k Gradient: 4.7 mmHg Mean Velocity: 0.73 m/s Teresita n Gradient: 2.52 mmHg LVOT Diameter: 2 cm LVO T VTI: 20.24 cm LVOT Area: 3.14 cm^2 LVO T SV:63.55 ml LVOT CO: 5.08 l/min LVO T CI: 3.04 l/min/m^2 Tricuspid Valve TR Velocity: 2.49 m/s TR Gradient: 24.74 mmHg Performing Organization Address City/State/[facility] Phone Number [facility] (02/26/2020 8:30 PM CDT) Narrative Performed At Leodan James RN 02/26/2020 8:31 PM Lab Results Component Value Date GLUCOSE 74 02/26/2020 CALCIUM 8.2 (L) 02/26/2020 NA 135 (L) 02/26/2020 K 4.2 02/26/2020 CO2 26 02/26/2020 CL 99 02/26/2020 BUN 43 (H) 02/26/2020 CREATININE 5.43 (H) 02/26/2020 Lab Results Component Value Date WBC 8.1 02/26/2020 HGB 8.5 (L) 02/26/2020 HCT 27.9 (L) 02/26/2020 MCV 102.6 (H) 02/26/2020 PLT 176 02/26/2020 HBSAg - Nonreactive 02/22/2020 - S/P Hemodialysis x 4hours. - Removed 1 L as tolerated. - Treatment tolerated well. Asymptomatic through out procedure - AVF(+) B/T.No S/Sx of infection no ishaan. - Consent verified prior to initiation o f treatment. - Report given to DANIEL Waters RN Arterial Doppler leg, Left (02/25/2020 11:32 PM CDT) Ejection Fraction [facility] ECHO HEAR TLAB [facility] Specimen Impressions Performed At [facility]CHO HEART[facility] Left Impression 1. The common femoral, profunda femoral, superficial femoral, popliteal, posterior tibial, peroneal and anterior tibial arteries are patent with triphasic/biphasic Doppler waveforms and diffuse plaque throughout. 2. There is stenosis in the distal superficial femoral artery. 3. The posterior tibial and peroneal arteries are heavily calcified. 4. Collateral flow is visualized through out. Conclusions Summary Duplex imaging and Doppler analysis were performed on the left lower extremity. Adequate Doppler waveforms were obtained. The common femoral, profunda femoral, superficial femoral, popliteal, posterior tibial, peroneal and anterior tibial arteries were patent with triphasic/biphasic Doppler waveforms and diffuse plaque throughout. There was stenosis in the distal superficial femoral artery. The posterior tibial and peroneal arteries were heavily calcified. Collateral flow was visualized throughout. Signature Velocities are measured in cm/s ; Diameters are measured in cm LE Duplex Measurements Right Left + + + + + + + + + + !Location ! !PSV !EDV !Waveform! !PSV!EDV !Waveform ! + + + + + + + + + + !Mid Common Femoral ! !77 !! ! + + +-- + + + !Prox PFA ! !74.6 !! ! + + +-- + + + !Prox SFA ! !79.4 !! ! + + +-- + + + !Mid SFA ! !73.1 !! ! + + +-- + + + !Dist SFA ! !135 ! ! ! + + +-- + + + !Prox Popliteal ! !86.4 !! ! + + +-- + + + !Dist Popliteal ! !71.7 !! ! + + +-- + + + !Mid DATA ENTRY ASSOCIATE ! !65.7 !! ! + + +-- + + + !Dist DATA ENTRY ASSOCIATE ! !51 !! ! + + +-- + + + !Prox KP ! !55.1 !! ! + + +-- + + + !Mid KP ! !69.2 !! ! + + +-- + + + !Dist KP ! !41.6 !! ! + + +-- + + + !Mid Peroneal ! !39.9 !! ! + + +-- + + + !Dist Peroneal ! !71.5 !! ! + + +-- + + + Narrative Performed At LAB - Lower Extremity Arterial Duplex [facility]ART[facility] Demographics Patient Aniket Vaz of Study 02/25/2020 NYDIA MOELLER Age 84 Visit [id number] GenderMale Date of 1935 Referring Zac Kapadia Room Number [id number] Physician Lubricating Specialist Paul bolanos, Physician Procedure Type of Study: Extremities Arteries: Lower Extremities Arterial Duplex, ARTERIAL DOPPLER LEG, LEFT. Indications for Study:Digital ischemia. Patient Status:TODAY. Study Location:Portable. Technical Quality:Adequate visualization . Risk Factors History of Disease + +----+ + !Diagnosis !Date!Comments ! + +----+ + !History/Risk!!HTN, CAD, DM, CKD, ESRD, H/o IABP, NSTEMI, CABG,! !Factors:!!Digital Ischemia ! + +----+ + Procedure Note Interface, External Ris In - 02/26/2020 7:46 AM CDT PV LAB - Lower Extremity Arterial Duplex Demographics Patient Name STEVE DAVIS te of Study 02/25/2020 MIGUEL Ag e 84 Visit Number [id number] Ge nder Male Accession Number [id number] Da te of 1935 Referring Zac Nobles om Number [id number] Physician Lubricating Specialist Paul Fry In terpreting Ella Fajardo, Ph ysician Procedure Type of Study: Extremities Arteries: Lower Extremities Arterial Duplex, ARTERIAL DOPPLER LEG, LEFT. Indications for Study:Digital ischemia. Patient Status:TODAY. Study Location:Portable. Technical Quality:Adequate visualization . Risk Factors History of Disease + +----+ + !Diagnosis !Date!Comments ! + +----+ + !History/Risk ! !HTN, CAD, DM, C KD, ESRD, H/o IABP, NSTEMI, CABG, ! !Factors: ! !Digital Ischemi a ! + +----+ + Impressions Left Impression 1. The common femoral, profunda femoral, superficial femoral, popliteal, posterior tibial, peroneal and anterior tibial arteries are patent with triphasic/biphasic Doppler waveforms and diffuse plaque throughout. 2. There is stenosis in the distal super ficial femoral artery. 3. The posterior tibial and peroneal art eries are heavily calcified. 4. Collateral flow is visualized through out. Conclusions Summary Duplex imaging and Doppler analysis wer e performed on the left lower extremity. Adequate Doppler waveforms w ere obtained. The common femoral, profunda femoral, superficial femoral, popliteal, posterior tibial, peroneal and anterior tibial arteries w ere patent with triphasic/biphasic Doppler waveforms and diffuse plaque th roughout. There was stenosis in the distal superficial femoral artery. The posterior tibial and peroneal arteries were heavily calcified. Collat eral flow was visualized throughout. Signature Velocities are measured in cm/s ; Diamet ers are measured in cm LE Duplex Measurements Right Left + + + + + + + + + + !Location ! !PSV !EDV !Waveform ! !PSV !EDV !Waveform ! + + + + + + + + + + !Mid Common Femoral ! !77 ! ! ! + + + + + + !Prox PFA ! !74.6 ! ! ! + + + + + + !Prox SFA ! !79.4 ! ! ! + + + + + + !Mid SFA ! !73.1 ! ! ! + + + + + + !Dist SFA ! !135 ! ! ! + + + + + + !Prox Popliteal ! !86.4 ! ! ! + + + + + + !Dist Popliteal ! !71.7 ! ! ! + + + + + + !Mid DATA ENTRY ASSOCIATE ! !65.7 ! ! ! + + + + + + !Dist DATA ENTRY ASSOCIATE ! !51 ! ! ! + + + + + + !Prox KP ! !55.1 ! ! ! + + + + + + !Mid KP ! !69.2 ! ! ! + + + + + + !Dist KP ! !41.6 ! ! ! + + + + + + !Mid Peroneal ! !39.9 ! ! ! + + + + + + !Dist Peroneal ! !71.5 ! ! ! + + + + + + Performing Organization Address City/State/[facility] Phone Number [facility] RAYMOND's Only(Ankle/Brachial Index) (02/25/2020 11:10 PM CDT) [facility] Specimen Impressions Performed At Right Impression [facility] 1. The posterior tibial and dorsalis pedis arteries are patent with triphasic/biphasic Doppler waveforms. 2. The PT pressure is 106 mmHg with an RAYMOND of 0.98 and the DP pressure is 99 mmHg with an RAYMOND of 0.92, within normal range. 3. The great toe pressure and TBI are not obtained due to no measurable digital flow. 4. The 1st and 3rd digits have no measurable flow; the 2nd, 4th and 5th digits have severely decreased flow by PPG waveforms. Left Impression 1. The posterior tibial and dorsalis pedis arteries are patent with triphasic/biphasic Doppler waveforms. 2. The PT RAYMOND is not obtained due to non-compressible artery and the DP pressure is 92 mmHg with an RAYMOND of 0.85, within mild obstruction range. 3. The great toe pressure and TBI are not obtained due to no measurable digital flow. 4. The 1st, 2nd, and 3rd digits have no measurable flow; the 4th and 5th digits have adequate flow by PPG wavefor ms. Conclusions Summary Arterial pressures and Doppler waveforms were performed bilaterally. Adequate Doppler waveforms were obtained. Doppler waveforms were triphasic/biphasic bilaterally. The right PT and DP RAYMOND's were within normal range. The great toe pressure and TBI were not obtained due to no measurable digital flow. The 1st and 3rd digits had no measurable flow; the 2nd, 4th and 5th digits had severely decreased flow by PPG waveforms. On the left, the PT RAYMOND was not obtained due to non-compressible artery and the DP RAYMOND was within mild obstruction range. The great toe pressure and TBI were not obtained due to no measurable digital flow. The 1st, 2nd, and 3rd digits had no measurable flow; the 4th and 5th digits had adequate flow by PPG waveforms. Signature Velocities are measured in cm/s ; Diameters are measured in cm Narrative Performed At LAB - Lower Extremity Arterial Proced ure [facility]CHO HEARTLAB [facility] Demographics Patient Aniket Vaz of Study NYDIA MOELLER Age 84 Visit [id number] GenderMale Date of 1935 Referring Zac Kapadia Room Number [id number] Physician Lubricating Specialist Paul ShresthaPhysician MARY Guido Procedure Type of Study: Extremities Arteries: Lower Extremity Arterial Procedure, ARTERIAL (RAYMOND'S W/DOPPLER) ONLY. Indications for Study:Digital ischemia. Patient Status:TODAY. Study Location:Portable. Technical Quality:Adequate visualization . Risk Factors History of Disease + +----+ + !Diagnosis !Date!Comments ! + +----+ + !History/Risk!!HTN, CAD, DM, CKD, ESRD, H/o IABP, NSTEMI, CABG,! !Factors:!!Digital Ischemia ! + +----+ + Procedure Note Interface, External Ris In - 02/26/2020 7:45 AM CDT PV LAB - Lower Extremity Arterial Procedure Demographics Patient Name STEVE DAVIS Da te of Study MIGUEL e 84 Visit Number [id number] nder Male Accession Number [id number] Da te of 1935 Referring Zac Kapadia om Number [id number] Physician Lubricating Specialist Paul Fry In terpreting Ella Fajardo, Ph ysician Procedure Type of Study: Extremities Arteries: Lower Extremity A rterial Procedure, ARTERIAL (RAYMOND'S W/DOPPLER) ONLY. Indications for Study:Digital ischemia. Patient Status:TODAY. Study Location:Portable. Technical Quality:Adequate visualization . Risk Factors History of Disease + +----+ + !Diagnosis !Date!Comments ! + +----+ + !History/Risk ! !HTN, CAD, DM, C KD, ESRD, H/o IABP, NSTEMI, CABG, ! !Factors: ! !Digital Ischemi a ! + +----+ + Impressions Right Impression 1. The posterior tibial and dorsalis ped is arteries are patent with triphasic/biphasic Doppler waveforms. 2. The PT pressure is 106 mmHg with an A BI of 0.98 and the DP pressure is 99 mmHg with an RAYMOND of 0.92, within normal range. 3. The great toe pressure and TBI are no t obtained due to no measurable digital flow. 4. The 1st and 3rd digits have no measur able flow; the 2nd, 4th and 5th digits have severely decreased flow by P PG waveforms. Left Impression 1. The posterior tibial and dorsalis ped is arteries are patent with triphasic/biphasic Doppler waveforms. 2. The PT RAYMOND is not obtained due to non -compressible artery and the DP pressure is 92 mmHg with an RAYMOND of 0.85, within mild obstruction range. 3. The great toe pressure and TBI are no t obtained due to no measurable digital flow. 4. The 1st, 2nd, and 3rd digits have no measurable flow; the 4th and 5th digits have adequate flow by PPG wavefor ms. Conclusions Summary Arterial pressures and Doppler waveform s were performed bilaterally. Adequate Doppler waveforms were obtaine d. Doppler waveforms were triphasic/biphasic bilaterally. The rig ht PT and DP RAYMOND's were within normal range. The great toe pressure an d TBI were not obtained due to no measurable digital flow. The 1st and 3r d digits had no measurable flow; the 2nd, 4th and 5th digits had severel y decreased flow by PPG waveforms. On the left, the PT RAYMOND was not obtaine d due to non-compressible artery and the DP RAYMOND was within mild obstruct ion range. The great toe pressure and TBI were not obtained due to no teresita surable digital flow. The 1st, 2nd, and 3rd digits had no measurable flow; the 4th and 5th digits had adequate flow by PPG waveforms. Signature Velocities are measured in cm/s ; Diamet ers are measured in cm Performing Organization Address City/State/Zipcode Phone Number [facility] ECHO HEARTLAB [employer] [facility] Hepatitis B surface antigen (02/22/2020 4:56 AM CDT)Only the most recent of3 resultswithin the time period is included. HBsAg Screen Nonreactive Nonreactive [facility] Specimen Blood Narrative Performed At Specimen is considered negative for HBsAg. [facility] Performing Organization Address City/[facility]/Zipcode Phone Number [facility] [address] [place] [address] CENTER 2D Echo W/Doppler(CW/PW/Color) (02/20/2020 10:00 AM CDT) Ejection Fraction [facility] ECHO HEAR TLAB [facility] Specimen Narrative Performed At Transthoracic Echocardiography Report (T TE) [facility] HEART[facility] Demographics Patient Aniket Vaz of Study 02/20/2020 MIGUEL GenderMale Visit [id number] RaceHispanic Number [id number] Number Date of 1935 Referring Eb Feliciano Physician Age 84 year(s) Lubricating Specialist Jessenia Navarro, ISAÍAS, RDCS,RVT,RDMS Lock Maintenance Supervisor Madison dumont MD Physician Procedure Type of Study TTE procedure:2DECHO W DOPPLER(CW/PW/COLOR) (KLARISSA) Indications: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 Clinical History HGB 9.0 HCT 30.2 % CAD, ICMO, HFrEF, ESRD, CABG X1 (01/23/20), HTN, DM, JUNCTIONAL BRADYCARDIA, ICD, PAF Contrast Medium: Definity. Height: 66 inches Weight: 58.97 kg (130 lbs) BSA: 1.67 m^2 BMI: 20.98 kg/m^2 HR: 80 bpm BP: 105/55 mmHg Summary The left ventricle is chamber size (by vol index) is severely enlarged (male - LVED vol >100ml/m2). Normal LV wall thickness. Septal motion is abnormal, likely related to prior cardiac surgery . The following segment(s) appear akinetic: mid-distal septum and apex-distal anterior. Basal anterior and basal lateral segments contract normally. the other segments are hypokinetic. Global LV systolic function moderately reduced . LVEF by Cleary's method of disk assessment is moderately reduced (35%) . The LVEF was measured using Cleary's bi-plane method of disk . LV endocardium is adequately visualized with IV ultrasound enhancing agent. Diastolic dysfunction is likely due to concomitant heart disease. A wkjoa-br-rtziczbw pericardial effusion is present anteriorly . No significant valve disease detected. The estimated RA pressure by IVC dynamics 0-5mmHg . Previous Study In comparison with the prior exam 20 the following changes are noted: LV and RV systolic function have improv ed . Signature Findings Left Ventricle The left ventricle is chamber size (by vol index) is severely enlarged (male - LVED vol >100m l/m2). No rmal LV wall thickness. Se ptal motion is abnormal, likely related to prior ca rdiac surgery . Th e following segment(s) appear akinetic: mi d-distal septum and apex-distal anterior . Basal an terior and basal lateral segments contra ct no rmally. th e other segments are hypokinetic. Gl obal LV systolic function moderately red uced . LV EF by Cleary's method of disk assessmen t is mo derately reduced (35%) . Th e LVEF was measured using Cleary's bi-p char me thod of disk . LV endocardium is adequately visualized wit h IV ul trasound enhancing agent. Di astolic dysfunction is likely due to con comitant he art disease. Left AtriumLA size is severely enlarged (>48 ml/m2) . Right VentricleRV pacing wire is visualized . Gl obal RV systolic function is low normal . RV chamber size is normal . Right Atrium RA cavity size is normal . RA pacing wire is visualized . Aortic Valve Mild AoV cusp calcification. A trace of aortic regurgitation. Ao V cusp mobility is mildly decreased . Mitral Valve Mild mitral annular calcification. Mi ld MV leaflet calcification. Mi ld mitral regurgitation. Tricuspid ValveA trace of tricuspid regurgitation. Un able to estimate peak systolic PA pressu re; in adequate TR velocity signal. Pulmonic Valve Mild pulmonary regurgitation. No rmal PV structure and function. AortaAortic root size (SInus of Valsalva diameter) i s no rmal . Proximal ascending aorta size mil dly di lated . 4 cm PericardiumA [id number] pericardial effusion i s present an teriorly . IVC/SVC/PA/PV/PleuralThe estimated RA pressure by IVC dynamics 0-5mmHg . Chambers/Structures Left Atrium LA Volume: 95.32 ml LA Area: 26.96 cm^2 LA Vol. Index: 57 ml/m^2 Left Ventricle LVIDd: 5.38 cm LV Septum Diastolic: 1.06 cm LV PW Diastolic: 1.03 cm LVEDV Cleary's:268.12 ml LVESV Cleary's:174.23 ml LVEF Cleary's: 35 % LVEDVI: 161 ml/m^2 LVESVI: 104 ml/m^2 LVOT Diameter: 2.03 cm Right Atrium RA Vol. (Sngl Plane): 5 0.42 ml Right Ventricle TAPSE: 1.3 cm Aorta Ao Root S of Shazia.: 3.5 cmAscending Aorta: 4.04 cm Doppler/Quantitative Measurements Mitral Valve MV Peak E-Wave: 1.07 m/sMV Peak A-Wave: 1.3 m/s E/A Ratio: 0. 82 Peak Gradient: 4.56 mmHg Deceleration Time: 204.9 msec MV Tej. Peak: Tissue Doppler E' Septal Velocity: 0.04 m/sE/E': 25.18 E' Lateral Velocity: 0.12 m/s Aortic Valve Peak Velocity: 2.11 m/sMean Velocity: 1.61 m/s Peak Gradient: 17.73 mmHgMean Gradient: 11.45 mmHg AV Area (continuity): 2.05 cm^2Area (2D): 2 cm^ 2 AV VTI: 37.61 cm AV DVI: 0.63 LVOT Peak Velocity: 1.38 m/s Peak Gradient: 7.6 mmHg Mean Velocity: 0.98 m/s Mean Gradient: 4.57 mmHg LVOT Diameter: 2.03 cmLVOT VTI: 23.86 cm LVOT Area: 3.24 cm^2LVOT SV:77.18 ml LVOT CO: 6.17 l/min LVOT CI: 3.69 l/min/m^2 Procedure Note Interface, External Ris In - 02/20/2020 1:25 PM CDT Transthoracic Echocardiography Report (TTE) Demographics Patient Name STEVE DAVIS Date of Study 02/20/2020 MIGUEL Gender Male Visit Number [id number] Race Room Num [place] [address] Number Date of 1935 Usama rick Mazariegos Ching shah Age 84 year(s) Sonograp her Naoufel Melanie, NB, RDCS,RVT,RDMS Lock Maintenance Supervisor MD Ching Mcpherson Procedure Type of Study TTE procedure:2DECHO W DOPPLE R(CW/PW/COLOR) (KLARISSA) Indications: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 Clinical History HGB 9.0 HCT 30.2 % CAD, ICMO, HFrEF, ESRD, CABG X1 ( 0), HTN, DM, JUNCTIONAL BRADYCARDIA, ICD, PAF Contrast Medium: Definity. Height: 66 inches Weight: 58.97 kg (130 lbs) BSA: 1.67 m^2 BMI: 20.98 kg/m^2 HR: 80 bpm BP: 105/55 mmHg Summary The left ventricle is chamber size (by vol index) is severely enlarged (male - LVED vol >100ml/m2). Normal LV wall thickness. Septal motion is abnormal, likely relat ed to prior cardiac surgery . The following segment(s) appear akineti c: mid-distal septum and apex-distal anterior. Basal anterior an d basal lateral segments contract normally. the other segments are hypokinetic. Global LV systolic function moderately reduced . LVEF by Cleary's method of disk assess ment is moderately reduced (35%) . The LVEF was measured using Cleary's b i-plane method of disk . LV endocardium is adequately visualized with IV ultrasound enhancing agent. Diastolic dysfunction is likely due to concomitant heart disease. A [id number]-[id number] pericardial effusio n is present anteriorly . No significant valve disease detected. The estimated RA pressure by IVC dynami cs 0-5mmHg . Previous Study In comparison with the prior exam 5 20 the following changes are noted: LV and RV systolic function have improv ed . Signature Findings Left Ventricle The left ventric le is chamber size (by vol index) is severely enla rged (male - LVED vol >100ml/m2). Normal LV wall t hickness. Septal motion is abnormal, likely related to prior cardiac surgery . The following se gment(s) appear akinetic: mid-distal septu m and apex-distal anterior. Basal anterior and bas al lateral segments contract normally. the other segmen ts are hypokinetic. Global LV systol ic function moderately reduced . LVEF by Cleary' s method of disk assessment is moderately reduc ed (35%) . The LVEF was teresita sured using Cleary's bi-plane method of disk . LV endocardium i s adequately visualized with IV ultrasound enhan cing agent. Diastolic dysfun ction is likely due to concomitant heart disease. Left Atrium LA size is sever vonda enlarged (>48 ml/m2) . Right Ventricle RV pacing wire i s visualized . Global RV systol ic function is low normal . RV chamber size is normal . Right Atrium RA cavity size i s normal . RA pacing wire i s visualized . Aortic Valve Mild AoV cusp ca lcification. A trace of aorti c regurgitation. AoV cusp mobilit y is mildly decreased . Mitral Valve Mild mitral nida lar calcification. Mild MV leaflet calcification. Mild mitral regu rgitation. Tricuspid Valve A trace of tricu spid regurgitation. Unable to estima te peak systolic PA pressure; inadequate TR ve locity signal. Pulmonic Valve Mild pulmonary r egurgitation. Normal PV struct ure and function. Aorta Aortic root size (SInus of Valsalva diameter) is normal . Proxima l ascending aorta size mildly dilated . 4 cm Pericardium A gtwkv-be-vxlot ate pericardial effusion is present anteriorly . IVC/SVC/PA/PV/Pleural The estimated RA pressure by IVC dynamics 0-5mmHg . Chambers/Structures Left Atrium LA Volume: 95.32 ml LA Area: 26.96 cm^2 LA Vol. Index: 57 ml/m^2 Left Ventricle LVIDd: 5.38 cm LV Septum Diastolic: 1.06 cm LV PW Diastolic: 1.03 cm LVEDV Cleary's:268.12 ml LVESV Cleary's:174.23 ml LVEF Cleary's: 35 % LVEDVI: 161 ml/m^2 LVESVI: 104 ml/m^2 LVOT Diameter: 2.03 cm Right Atrium RA Vol. (Sngl Plane): 50.42 ml Right Ventricle TAPSE: 1.3 cm Aorta Ao Root S of Shazia.: 3.5 cm Ascending Aorta: 4.04 cm Doppler/Quantitative Measurements Mitral Valve MV Peak E-Wave: 1.07 m/s M V Peak A-Wave: 1.3 m/s E /A Ratio: 0.82 P eak Gradient: 4.56 mmHg D eceleration Time: 204.9 msec MV Tej. Peak: Tissue Doppler E' Septal Velocity: 0.04 m/s E /E': 25.18 E' Lateral Velocity: 0.12 m/s Aortic Valve Peak Velocity: 2.11 m/s Mean Velocity: 1.61 m/s Peak Gradient: 17.73 mmHg Mean Gradient: 11.45 mmHg AV Area (continuity): 2.05 cm^2 Area (2D): 2 cm^2 AV VTI: 37.61 cm AV DVI: 0.63 LVOT Peak Velocity: 1.38 m/s Pea k Gradient: 7.6 mmHg Mean Velocity: 0.98 m/s Teresita n Gradient: 4.57 mmHg LVOT Diameter: 2.03 cm LVO T VTI: 23.86 cm LVOT Area: 3.24 cm^2 LVO T SV:77.18 ml LVOT CO: 6.17 l/min LVO T CI: 3.69 l/min/m^2 Performing Organization Address City/State/Zipcode Phone Number [facility] HEMODIALYSIS INPATIENT (02/16/2020 12:10 PM CDT) Narrative Performed At Gilmar Antonio RN 02/16/2020 12:1 0 PM Pt dialyzed for 4 hrs via left upper ar m AVF. NET UF= 1L., Mannitol IV prn given for low b/ps as or dered. Lab Results Component Value Date WBC 8.2 02/16/2020 HGB 9.0 (L) 02/16/2020 HCT 29.1 (L) 02/16/2020 MCV 102.8 (H) 02/16/2020 PLT 168 02/16/2020 Lab Results Component Value Date HEPBSAG Nonreactive 01/23/2020 Lab Results Component Value Date HEPBCAB Nonreactive 11/10/2016 Lab Results Component Value Date GLUCOSE 102 02/16/2020 CALCIUM 8.6 02/16/2020 NA 138 02/16/2020 K 4.1 02/16/2020 CO2 26 02/16/2020 CL 99 02/16/2020 BUN 54 (H) 02/16/2020 CREATININE 5.48 (H) 02/16/2020 Coag Profile: Protime Date Value Ref Range Status 02/16/2020 28.4 (H) 11.9 - 14.2 seconds Final INR Date Value Ref Range Status 02/16/2020 2.8 <=5.9 Final PTT Date Value Ref Range Status 01/25/2020 44.3 (H) 22.5 - 36.0 seconds Final TRANSFUSION SERVICE REPORT - SCAN (02/11/2020 5:50 PM CDT)Only the most recent of8 resultswithin the time period is included. Narrative Performed At This result has an attachment that is no t available. Prepare plasma (02/10/2020 11:54 PM CDT) Unit ABO O Neg SAFETRACE TX UNIT NUMBER [id number] SAFETRACE TX Status TX_TIMEINCHART SAFETRACE TX Blood Bank Product FFP SAFETRACE TX PRODUCT CODE [id number] SAFETRACE TX Specimen Blood Performing Organization Address City/State/[facility] Phone Number SAFETRACE TX XR chest 1 view portable / bedside (02/09/2020 4:27 PM CDT)Only the most recent of17 resultswithin the time period is included. Specimen Narrative Performed At FINAL REPORT [facility] CHEST ONE VIEW HISTORY: Status post thoracentesis COMPARISON: 02/08/2020 FINDINGS: Single portable AP examination of the est was performed. No pneumothorax is identified. Small bilateral pleural effusions are pr esent, decreased in prominence since the prior study. Atelec tatic changes at the lung bases are unchanged on the right and sli ghtly decreased on the left. The cardiac shadow remains enlarged. Rig ht subclavian transvenous cardiac pacing hardware is in place. Left central venous catheter tip is in t he SVC region. Signed: Betsy Riddle MD Report Verified Date/Time:02/09/2020 16:48:59 Reading Location: [facility] Radiology Reading Room Procedure Note Interface, External Ris In - 02/09/2020 4:51 PM CDT FINAL REPORT CHEST ONE VIEW HISTORY: Status post thoracentesis COMPARISON: 02/08/2020 FINDINGS: Single portable AP examination of the ch est was performed. No pneumothorax is identified. Small bilateral pleural effusions are pr esent, decreased in prominence since the prior study. Atelec tatic changes at the lung bases are unchanged on the right and sli ghtly decreased on the left. The cardiac shadow remains enlarged. Rig ht subclavian transvenous cardiac pacing hardware is in place. Left central venous catheter tip is in [facility] SVC region. Signed: Betsy Riddle MD Report Verified Date/Time: 02/09/2020 1 6:48:59 Reading Location: [facility] Radiology Reading Room Performing Organization Address City/State/Zipcode Phone Number GE RIS IR CV Access Fluoro (02/09/2020 4:08 PM CDT) Specimen Narrative Performed At FINAL REPORT [employer] Procedure: Tunneled power line placement History: Need for prolonged IV therapy. Cdl Driver: Antolin Guevara MD. Licensed Massage Therapist: Not applicable, M.D. Modality: Sonography and fluoroscopy. DOSE REDUCTION: The examination was perf ormed according to departmental dose-optimization program. Fluoro time: 1.8 Radiation dose: 5.6 mGy Air-Kerma. Number of images: 3 Sedation: No sedation. Vital signs were monitored throughout the procedure by a dedicated RN under direct supervision of Dr. Guevara, and remained stable. Medicines: Not applicable. Anesthesia: Lidocaine local infiltration . Physician intraprocedure sedation time was not applica ble minutes. Estimated blood loss:< 5 cc. Technique: Discussion of risks, benefits, and alter natives were made with the patient. The patient expressed understan ding and agreed to proceed. Informed written consent was obtained. A universal timeout was performed prior to starting the procedur e. The procedure room personnel used personal protective equip ment. The operators used sterile gowns and gloves additionally. A preliminary ultrasonogram was performe d of the neck that revealed a patent and compressible left internal ju gular vein. Pertinent ultrasound images were stored in the PAC S for documentation. A sterile prep and drape of the left nec k and upper chest was performed using standard technique. Using aseptic precautions, real-time ult rasound guidance, the internal jugular vein was accessed after local anesthetic infiltration and dermatotomy with a micr opuncture needle. A 018 guidewire was advanced into the central venous system under fluoroscopic guidance.Over the wire a micropuncture sheath was placed. Through the micropuncture sheath , a 035 wire was advanced into the venous system under fluoroscopi c guidance. Over the wire a peel-away sheath was placed. After local anesthesia, an incision was created in the subclavicular exit site location and a catheter was tu nneled from the exit site to the venotomy site using a tunneling irene ce. The catheter was cut to an appropriate length and advanced into the venous system through the peel-away sheath which was removed. The catheter aspirated and flushed well and was terminally packed with heparinized saline. The catheter was secured to skin using n onabsorbable suture and a CHG dressing applied. The venotomy site was closed using [place]. An aseptic dressing was applied using the protocol for Dermabond . [facility] and was discharged from the department in stable condition. Complications: None immediate. Device: 6 Israeli dual-lumen power line. Findings: Right-sided AICD recently plac ed. Right side cannot be used. 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 Patent and compressible left external jugular vein. Final image shows the cath eter to be in good position with the catheter tip in the right atriu m, an excellent position for use. There is no complication. Impression: Successful ultrasound and fluoroscopic g uided left external jugular vein route dual lumen power lineplac ement as described above. Thank you for the opportunity to assist in the care of your patient. Signed: Antolin Guevara MD Report Verified Date/Time:02/09/2020 16:24:04 Reading Location: [place] [address] Angio Body Reading Room Procedure Note Interface, External Ris In - 02/09/2020 4:26 PM CDT FINAL REPORT Procedure: Tunneled power line placement History: Need for prolonged IV therapy. Cdl Driver: Antolin Guevara MD. Licensed Massage Therapist: Not applicable, [place]. Modality: Sonography and fluoroscopy. DOSE REDUCTION: The examination was perf ormed according to departmental dose-optimization program. Fluoro time: 1.8 Radiation dose: 5.6 mGy Air-Kerma. Number of images: 3 Sedation: No sedation. Vital signs were monitored throughout the procedure by a dedicated RN under direct supervision of Dr. Guevara, and remained stable. Medicines: Not applicable. Anesthesia: Lidocaine local infiltration . Physician intraprocedure sedation time w as not applicable minutes. Estimated blood loss: < 5 cc. Technique: Discussion of risks, benefits, and alter natives were made with the patient. The patient expressed understan ding and agreed to proceed. Informed written consent was obtained. A universal timeout was performed prior to starting the procedur e. The procedure room personnel used personal protective equip ment. The operators used sterile gowns and gloves additionally. A preliminary ultrasonogram was performe d of the neck that revealed a patent and compressible left internal ju gular vein. Pertinent ultrasound images were stored in the PAC S for documentation. A sterile prep and drape of the left nec k and upper chest was performed using standard technique. Using aseptic precautions, real-time ult rasound guidance, the internal jugular vein was accessed after local anesthetic infiltration and dermatotomy with a micr opuncture needle. A 018 guidewire was advanced into the central venous system under fluoroscopic guidance. Over the wire a micropuncture sheath was placed. Through the micropuncture sheath , a 035 wire was advanced into the venous system under fluoroscopi c guidance. Over the wire a peel-away sheath was placed. After local anesthesia, an incision was created in the subclavicular exit site location and a catheter was tu nneled from the exit site to the venotomy site using a tunneling irene ce. The catheter was cut to an appropriate length and advanced into the venous system through the peel-away sheath which was removed. The catheter aspirated and flushed well and was terminally packed with heparinized saline. The catheter was secured to skin using n onabsorbable suture and a CHG dressing applied. The venotomy site was closed using [place]. An aseptic dressing was applied using the protocol for Dermabond . The patient was transferred to the [facility] and was discharged from the department in stable condition. Complications: None immediate. Device: 6 Israeli dual-lumen power line. Findings: Right-sided AICD recently plac ed. Right side cannot be used. 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 Patent and compressible left external jugular vein. Final image shows the cath eter to be in good position with the catheter tip in the right atriu m, an excellent position for use. There is no complication. Impression: Successful ultrasound and fluoroscopic g uided left external jugular vein route dual lumen power line placem ent as described above. Thank you for the opportunity to assist in the care of your patient. Signed: Antolin Guevara MD Report Verified Date/Time: 02/09/2020 1 6:24:04 Reading Location: [place] [address] Angio Body Reading Room Performing Organization Address City/State/Zipcode Phone Number GE RIS HEMODIALYSIS INPATIENT (02/09/2020 12:36 PM CDT) Narrative Performed At Elly Foster RN 02/09/2020 12:36 PM Lab Results Component Value Date GLUCOSE 158 (H) 02/08/2020 CALCIUM 9.1 02/08/2020 NA 141 02/08/2020 K 3.8 02/08/2020 CO2 25 02/08/2020 CL 105 02/08/2020 BUN 31 (H) 02/08/2020 CREATININE 3.11 (H) 02/08/2020 Lab Results Component Value Date WBC 9.0 02/09/2020 HGB 8.7 (L) 02/09/2020 HCT 28.6 (L) 02/09/2020 MCV 105.1 (H) 02/09/2020 PLT 217 02/09/2020 Results for VERA STEVEJESSICA STAFFORDZA (MRN 0 [id number]) as of 02/09/2020 10:20 Ref. Range 01/23/2020 14:37 HBsAg Screen Latest Ref Range: Nonreacti veNonreactive HD X 4 hours completed.Net UF -1.1L .Patient hypotensive during treatment.Mannitol given X [address] Huang notified and order received to give albu min-given.Also, order received to give plasma- 1 unit given. BP improved after albumin.Elly Foster RN Transfuse plasma (02/09/2020 10:49 AM CDT)Only the most recent of2 resultswithin the time period is included.Type and screen, automated (02/09/2020 4:52 AM CDT) Only the most recent of4 resultswithin the time period is included. ABO/RH AUTOMATED (BEAKER) O POSITIVE [facility] Ab Scrn NEGATIVE [facility] Specimen Blood Performing Organization Address City/State/Zipcode Phone Number [facility] [address] [place] [address] HEMODIALYSIS INPATIENT (02/08/2020 6:34 PM CDT) Narrative Performed At Madhu Michel RN 02/08/2020 6:39 PM HD x 4 hrs. UF net 750 ml. Unable to pul l desired UF due to BP drops below parameter. Given 3 doses of mannitol for BP support. Pt awake and alert, not in distress. Lab Results Component Value Date WBC 13.9 (H) 02/08/2020 HGB 9.1 (L) 02/08/2020 HCT 29.0 (L) 02/08/2020 MCV 101.8 (H) 02/08/2020 PLT 313 02/08/2020 Lab Results Component Value Date GLUCOSE 158 (H) 02/08/2020 CALCIUM 9.1 02/08/2020 NA 141 02/08/2020 K 3.8 02/08/2020 CO2 25 02/08/2020 CL 105 02/08/2020 BUN 31 (H) 02/08/2020 CREATININE 3.11 (H) 02/08/2020 Lab Results Component Value Date HEPBSAG Nonreactive 01/23/2020 Vitals: 02/08/20 1832 BP: 117/58 Pulse: 78 Resp: 18 Temp: 96.9 F (36.1 C) SpO2: 92% US chest (02/08/2020 1:14 PM CDT) Specimen Narrative Performed At FINAL REPORT [employer] TECHNIQUE: Grayscale ultrasound of the r ight chest. INDICATION: eval right pleural effusion. COMPARISON: None. FINDINGS: There is a small to moderate-sized right pleural effusion which contains simple fluid with adjacent atel ectatic lung. Signed: Ryan Willis MD Report Verified Date/Time:02/08/2020 13:18:21 Reading Location: [facility] Reading Room - [place] [address] Procedure Note Interface, External Ris In - 02/08/2020 1:20 PM CDT FINAL REPORT TECHNIQUE: Grayscale ultrasound of the r ight chest. INDICATION: eval right pleural effusion. COMPARISON: None. FINDINGS: There is a small to moderate-sized right pleural effusion which contains simple fluid with adjacent atel ectatic lung. Signed: Ryan Willis MD Report Verified Date/Time: 02/08/2020 1 3:18:21 Reading Location: [facility] Reading Room - [place] [address] Performing Organization Address City/[facility] Phone Number [facility] POCT-HEMATOCRIT (02/08/2020 4:28 AM CDT) POC-Hematocrit 28 (L)Comment: : 40 - 50 % [facility] Ice Cream Freezer Assistant/Trust [employer] Estates Attorney ID = [facility] [id number] for SUZYAALELA Specimen Blood Performing Organization Address [facility] Phone Number [address] [phone] CENTER POCT-HEMOGLOBIN (02/08/2020 4:28 AM CDT) POC-Hemoglobin 9.5 (L)Comment: : TESTED 13.0 - 16.8 g/dL [facility] AT [address], [address]: Ice Cream Freezer Assistant/Trust And Estates Attorney ID = [id number] for MARGARETHCIAALELA Specimen Blood Performing Organization Address [facility] Phone Number [address] [address] CENTER POCT-GLUCOSE (02/08/2020 4:28 AM CDT) POC-Glucose 159 (H)Comment: : TESTED AT 70 - 110 mg/dL [address], [address]: Ice Cream Freezer Assistant/Trust And Estates Attorney ID = [id number] for URCIAALELA Specimen Blood Performing Organization Address [facility] Phone Number [address] [address] [place] POC-Sodium (02/08/2020 4:28 AM CDT) POC-Sodium 139Comment: : TESTED AT 135 - 148 meq/L [address] [place], [address]: Ice Cream Freezer Assistant/Trust And Estates Attorney ID = [id number] for URCIA FAMELA Specimen Blood Performing Organization Address [facility] Phone Number [address] [address] [place] POC-Potassium (02/08/2020 4:28 AM CDT) POC-Potassium 3.6Comment: : TESTED AT 3.6 - 5.5 meq/L [address] [place], [address]: Ice Cream Freezer Assistant/Trust And Estates Attorney ID = [id number] for URCIA FAMELA Specimen Blood Performing Organization Address [facility] Phone Number [address] [address] [place] POC-Calcium ionized (02/08/2020 4:28 AM CDT) POC-Calcium Ionized 1.19Comment: : TESTED 1.12 - 1.27 mmol/L [facility] AT [address], [address]: Ice Cream Freezer Assistant/Trust And Estates Attorney ID = [id number] for URCIA FAMELA Specimen Blood Performing Organization Address [facility] Centercode Phone Number [address] [address] [place] POC-Blood gases, arterial (02/08/2020 4:28 AM CDT) Temp. Celsius-POC 96.9 [facility] FIO2-POC [address] [facility] pH, Arterial-POC 7.476 (H) 7.350 - 7.450 [facility] PCO2, Arterial-POC 34.8 (L) 35.0 - 45.0 mm Hg [facility] PO2, Arterial-POC 63.0 (L) 80.0 - 90.0 mm Hg [facility] SO2, Arterial-POC 94.0 (L) 96.0 - 97.0 % [facility] HCO3, Arterilal-POC 25.9 21.0 - 29.0 meq/L [facility] BE, Arterial-POC 2.0Comment: : TESTED AT -2.0 - 3.0 meq/L [facility] [address], [address]: Ice Cream Freezer Assistant/Trust And Estates Attorney ID = [id number] for VICTORIA PACHECO Specimen Blood Performing Organization Address City/State/Zipcode Phone Number [place] [phone] CENTER ECG 12 lead (02/08/2020 4:25 AM CDT)Only the most recent of18 resultswithin the time period is included. Specimen Narrative Performed At Ventricular Rate 81 BPM GE MUSE Atrial Rate 81 BPM P-R Interval 176 ms QRS Duration 130 ms Q-T Interval 482 ms QTC Calculation(Bazett) 559 ms P [place] -26 degrees R [place] -28 degrees T [place] 53 degrees AV dual-paced rhythm with occasional Pre mature ventricular complexes Abnormal ECG When compared with ECG of 06-FEB-2020 02 :15, Premature ventricular complexes are now Present Confirmed by MD Ravindra, Iliana ([id number]) on 02/08/2020 10: 17:52 PM Procedure Note Interface, External Ris In - 02/08/2020 10:18 PM CDT Ventricular Rate 81 BPM Atrial Rate 81 BPM P-R Interval 176 ms QRS Duration 130 ms Q-T Interval 482 ms QTC Calculation(Bazett) 559 ms P [place] -26 degrees R [place] -28 degrees T [place] 53 degrees AV dual-paced rhythm with occasional Pre mature ventricular complexes Abnormal ECG When compared with ECG of 06-FEB-2020 02 :15, Premature ventricular complexes are now Present Confirmed by MD Waite Mahboob ([id number]) on 02/08/2020 10:17:52 PM Performing Organization Address [facility] Centercode Phone Number [facility] B-type Natriuretic Factor (BNP) (02/08/2020 4:24 AM CDT)Only the most recent of 2 resultswithin the time period is included. BNP 19,386 (H) 0 - 100 pg/mL [facility] Specimen Blood Narrative Performed At Ice Cream Freezer Assistant CHARLES Hamlin [facility] Performing Organization Address [facility] Phone Number [address] [address] CENTER Troponin I (02/08/2020 4:22 AM CDT)Only the most recent of7 resultswithin the time period is included. Troponin I 19.86 (HH) 0.00 - 0.03 ng/mL [facility] Specimen Blood Narrative Performed At Troponin I (TnI) levels must be interpreted [facility] in the context of the presenting symptoms and the clinical findings. Elevated TnI levels indicate myocardial damage, but are not specific for ischemic heart disease. Elevated TnI levels are seen in patients with other cardiac conditions (including myocarditis and congestive heart failure), and slight TnI elevations occur in patients with other conditions, including sepsis, renal failure, acidosis, acute neurological disease, and persistent tachyarrhythmia. Ice Cream Free[employer] Assistant CHARLES Hamlin Performing Organization Address [facility] Phone Number [address] [address] CENTER Phosphorus (02/08/2020 4:22 AM CDT)Only the most recent of27 resultswithin the time period is included. Phosphorus 3.2 2.3 - 4.7 mg/dL [facility] Specimen Blood Narrative Performed At Ice Cream Freezer Assistant CHARLES Hamlin [facility] Performing Organization Address City/State/Zipcode Phone Number [facility] [address] [place] [address] CENTER Magnesium (02/08/2020 4:22 AM CDT)Only the most recent of31 resultswithin the time period is included. Magnesium 2.2 1.6 - 2.6 mg/dL [facility] Specimen Blood Narrative Performed At Ice Cream Freezer Assistant ID - DEANDRE Hamlin [facility] Performing Organization Address City/State/Zipcode Phone Number [facility] [address] [place] [address] CENTER Comprehensive metabolic panel (02/08/2020 4:22 AM CDT)Only the most recent of4 resultswithin the time period is included. Protein, Total 6.8 6.0 - 8.3 gm/dL [facility] Albumin 3.2 (L) 3.5 - 5.0 g/dL [facility] Alkaline Phosphatase 254 (H) 40 - 150 U/L [facility] Total Bilirubin 1.7 (H) 0.2 - 1.2 mg/dL [facility] Sodium 141 136 - 145 meq/L [facility] Potassium 3.8 3.5 - 5.1 meq/L [facility] Chloride 105 98 - 107 meq/L [facility] CO2 25 22 - 29 meq/L [facility] BUN 31 (H) 7 - 21 mg/dL [facility] Creatinine 3.11 (H) 0.57 - 1.25 mg/dL [facility] Glucose 158 (H) 70 - 105 mg/dL [facility] ER Calcium 9.1 8.4 - 10.2 mg/dL [facility] AST 62 (H) 5 - 34 U/L [facility] AL[facility] ALT 31 6 - 55 U/L [facility] ALTH [facility] ER EGFR 19Comment: ESTIMATED GFR mL/min/1.73 sq m [facility] IS NOT ACCURATE [facility] CREATININE CLEARANCE IN PREDICTING GLOMERULAR FILTRATION RATE. ESTIMATED GFR IS NOT APPLICABLE FOR DIALYSIS PATIENTS. Specimen Blood Narrative Performed At Ice Cream Free[employer] Assistant ID - DEANDRE Hamlin [facility] Performing Organization Address City/State/Zipcode Phone Number [facility] [address] [place] [address] CENTER HEMODIALYSIS INPATIENT (02/07/2020 3:15 PM CDT) Narrative Performed At Madhu Michel RN 02/07/2020 3:17 PM HD x 4 hrs. UF net 2L. Given 3 doses of mannitol for BP support, see MAR. Unable to pull desired UF due t o BP was labile. Pt awake and alert, not in distress. Lab Results Component Value Date WBC 12.4 (H) 02/07/2020 HGB 8.5 (L) 02/07/2020 HCT 26.7 (L) 02/07/2020 MCV 101.5 (H) 02/07/2020 PLT 284 02/07/2020 Lab Results Component Value Date GLUCOSE 92 02/07/2020 CALCIUM 8.3 (L) 02/07/2020 NA 139 02/07/2020 K 3.9 02/07/2020 CO2 25 02/07/2020 CL 102 02/07/2020 BUN 36 (H) 02/07/2020 CREATININE 3.67 (H) 02/07/2020 Lab Results Component Value Date HEPBSAG Nonreactive 01/23/2020 Vitals: 02/07/20 1500 BP: 107/48 Pulse: 80 Resp: 17 Temp: 97.5 F (36.4 C) SpO2: 97% Respiratory Panel [facility] (02/06/2020 8:35 PM CDT) [facility] Not detected Not detected, [facility] [employer] [facility] ER Rhinovirus Not detected Not detected, [facility] [employer] [facility] Influenza A Not detected Not detected, [facility] INFLUENZA A (NO SUBTYPE) [facility] Influenza A subtype H1 [facility] Influenza A Subtype H3 [facility] Influenza A Subtype H1-2009 [facility] Influenza B Not detected Not detected, [facility] Respiratory Syncytial Virus Not detected Not detected, [facility] Parainfluenza Virus 1 Not detected Not detected, [facility] Parainfluenza Virus 2 Not detected Not detected, [facility] Parainfluenza virus 3 Not detected Not detected, [facility] Parainfluenza Virus 4 Not detected Not detected, [facility] Adenovirus Not detected Not detected, [facility] Coronavirus 229E Not detected Not detected, [facility] Coronavirus HKU1 Not detected Not detected, [facility] Coronavirus NL63 Not detected Not detected, [facility] Coronavirus OC43 Not detected Not detected, [facility] Bordetella Pertussis Not detected Not detected, [facility] Chlamydophila Pneumoniae Not detected Not detected, [facility] Mycoplasma Pneumoniae Not detected Not detected, [facility] Specimen Nasopharyngeal Narrative Performed At Other viruses and bacteria not targeted by [facility] this PCR panel cannot be excluded; therefore clinical correlation and follow up of serology, culture results, and other molecular studies is required. The results are not intended to be used as the sole means for clinical diagnosis or patient management decisions. This sample was tested at the [facility] using the [employer] FilmArray Respiratory Panel. It is FDA cleared and has been verified and approved by the [facility] for clinical use on nasopharyngeal swab specimens. The performance of the FilmArray RP has not been established in individuals who received influenza vaccine.Recent administration of a nasal influenza vaccine may cause false positive results for Influenza A and/or Influenza B. Performing Organization Address City/State/[facility] Cent[facility]ode Phone Number [address] [address] [place] Rapid Influenza A&B Screen (02/06/2020 8:35 PM CDT) Rapid Influenza A Antigen Negative Negative, Inconclusive [facility] Rapid influenza B Antigen Negative Negative, Inconclusive [facility] Specimen Nasal Performing Organization Address [facility] Phone Number [address] [address] [place] HEMODIALYSIS INPATIENT (02/06/2020 5:00 PM CDT) Narrative Performed At Uriel Larry RN 02/06/2020 5:17 PM Lab Results Component Value Date WBC 11.1 (H) 02/06/2020 HGB 9.3 (L) 02/06/2020 HCT 29.9 (L) 02/06/2020 MCV 98.7 (H) 02/06/2020 PLT 269 02/06/2020 Lab Results Component Value Date GLUCOSE 120 (H) 02/06/2020 CALCIUM 8.5 02/06/2020 NA 139 02/06/2020 K 5.0 02/06/2020 CO2 26 02/06/2020 CL 99 02/06/2020 BUN 58 (H) 02/06/2020 CREATININE 5.57 (H) 02/06/2020 HD treatment x4 hours completed,UF 3lite rs removed as ordered,no complaints,report given to primary nurse Tiffanie patient stable.Uriel Larry RN Limited 2D Echocardiogram (02/06/2020 10:09 AM CDT) [facility] ECHO HEAR TLAB MKCKESSON CPACS Specimen Narrative Performed At Transthoracic Echocardiography Report (T TE) [facility] ECHO HEARTLAB [facility] Demographics Patient Name Aniket DAVIS of Study 02/06/2020 MIGUEL [id number] Gender Male Visit Number [id number] Coco bansal [id number] Room Number 6107 Number Date of Birth1935 Referring Physician Rashad Singh MD Age84 year(s) Lubricating Specialist Alma Rosa murillo, [facility] Amilcar talavera MD Physician Fellow Rich Fairchild MD Procedure Type of Study TTE procedure:LIMITED 2D ECHOCARDIOGRAM (Routine) Indications:Acute Chest Pain/ Suspected CAD. Clinical History AICD 01/26/2020, ESRD on HD, CAD s/p ACB 01/23/2020, DM, HTN, Acute respiratory insufficiency, ICMP, Hypotension, Cardiogenic shock, Fluid overload, PAF HGB 9.3 HCT 29.9 % Contrast Medium: Definity. Amount - 2 ml Height: 66 inches Weight: 66.22 kg (146 lbs) BSA: 1.75 m^2 BMI: 23.56 kg/m^2 HR: 87 bpm BP: 95/56 mmHg Summary Global LV systolic function severely re duced . The following segments appear akinetic: mid-distal anterior septum and all apical segments. Basal to mid inferolateral and lateral, basal inferior, basal anterior wall segments contract normally. All other segment are severely hypokinetic. Severely increased left ventricle cavit y size. LVEF by Cleary's method of disk assessment is severely reduced (25-29%) . Spontaneous contrast observed in LV cav ity. LA size is moderately enlarged (42-48 m l/m2) . RV chamber size is mildly enlarged . Global RV systolic function is depresse d . RA size is mildly dilated. Estimated peak systolic PA pressure is 45-50 mmHg (mild pulmonary hypertension) The estimated RA pressure by IVC dynamics 16-20 mmHg . No significant pericardial effusion. There is a large left pleural effusion Previous Study Compared to the previous study on 01/30/2020, the following changes are observed: large left pleural effusion, increased PASP, RAP, decreased RV systolic function. Signature Findings Technical Quality: Technically difficult exam. Rhythm/BPIndeterminat e rhythm during the exam. Left Ventricle Normal LV wall thickness. Se verely increased left ventricle cavity s ize. LV EF by Cleary's method of disk assessmen t is se verely reduced (25-29%) . Th e following segments appear akinetic: mi d-distal an terior septum and all apical segments. B russel to mi d inferolateral and lateral, basal infer ior, ba lucas anterior wall segments contract norm ally. All ot her segment are severely hypokinetic. Sp ontaneous co ntrast observed in LV cavity. Gl obal LV systolic function severely reduc ed . Di astolic dysfunction is likely due to con comitant he art disease. Left AtriumLA size is moderately enlarged (42-48 ml/m2) . Right VentricleRV chamber size is mildly enlarged . Gl obal RV systolic function is depressed . Right Atrium RA size is mildly dilated. Atrial SeptumNormal interatrial septum by available views. Aortic Valve Normal AoV structure. Doppler of the aortic valve wa s not obtained. Mitral Valve Normal MV structure. Mi tral valve Doppler was not obtained. Tricuspid ValveMild tricuspid regurgitation. TV structure is normal. Es timated peak systolic PA pressure is 45- 50 mmHg (m ild pulmonary hypertension) Me an PA pressure is 34 based on PI velocit y. Pulmonic Valve Normal PV structure. Mi ld to moderate VT is present. AortaAortic root size (SInus of Valsalva diameter) i s no rmal . PericardiumNo significant pericardial effusion. Th ere is a large left pleural effusion IVC/SVC/PA/PV/PleuralThe estimated RA pressure by IVC dynamics 16-20 mm Hg . Chambers/Structures Left Atrium LA Volume: 75.64 ml LA Area: 22.32 cm^2 LA Vol. Index: 43 ml/m^2 Left Ventricle LVIDd: 5.75 cm LVEDV:160.93 ml LV Septum Diastolic: 1.01 cm LV PW Diastolic: 1.15 cm LVEDV Cleary's:203.56 ml LVESV Cleary's:152.7 ml LVEF Cleary's: 25 % LVEDVI: 116 ml/m^2 LVES : 87 ml/m^2 LVOT Diameter: 2.23 cm Right Ventricle RV Diast Dim.: 3.86 cm TAPS E: 1.15 cm RVOT VTI: 14.92 cm Aorta Ao Root S of Shazia.: 3.43 cm Doppler/Quantitative Measurements LVOT LVOT Diameter: 2.23 cm LVOT Area: 3.91 cm^2 RVOT RVOT VTI (PW): 15.53 cm Tricuspid Valve TR Velocity: 2.61 m/s TR Gradient: 27.16 mmHg Pulmonic Valve PI Peak Velocity: 2.45 m/s Procedure Note Interface, External Ris In - 02/06/2020 2:22 PM CDT Transthoracic Echocardiography Report (TTE) Demographics Patient Name STEVE DAVIS Date of Study 02/06/2020 MIGUEL Gende r Male Visit Number [id number] Race Unknown Room Number 6107 Number Date of 1935 Refer ring Physician Rashad Singh MD Age 84 year(s) Sonog rapher Alma Rosa Cruz, [facility] Elly Beard MD Physi jessica Fellow Rich Fairchild MD Procedure Type of Study TTE procedure:LIMITED 2D ECHO CARDIOGRAM (Routine) Indications:Acute Chest Pain/ Suspected CAD. Clinical History AICD 01/26/2020, ESRD on HD, CAD s/p ACB 01/23/2020, DM, HTN, Acute respiratory insufficiency, ICMP, Hypoten yari, Cardiogenic shock, Fluid overload, PAF HGB 9.3 HCT 29.9 % Contrast Medium: Definity. Amount - 2 ml Height: 66 inches Weight: 66.22 kg (146 lbs) BSA: 1.75 m^2 BMI: 23.56 kg/m^2 HR: 87 bpm BP: 95/56 mmHg Summary Global LV systolic function severely re duced . The following segments appear akinetic: mid-distal anterior septum and all apical segments. Basal to mid inferolateral and lateral, basal inferior, basal anterior wall segments contract normally. All ot her segment are severely hypokinetic. Severely increased left ventricle cavit y size. LVEF by Cleary's method of disk assess ment is severely reduced (25-29%) . Spontaneous contrast observed in LV cav ity. LA size is moderately enlarged (42-48 m l/m2) . RV chamber size is mildly enlarged . Global RV systolic function is depresse d . RA size is mildly dilated. Estimated peak systolic PA pressure is 45-50 mmHg (mild pulmonary hypertension) The estimated RA pressure by IVC dynami cs 16-20 mmHg . No significant pericardial effusion. There is a large left pleural effusion Previous Study Compared to the previous study on 2019, the following changes are observed: large left pleural effusion, increased PASP, RAP, decreased RV systolic function. Signature Findings Technical Quality: Technically difficult exam. Rhythm/BP Indeterminate rh ythm during the exam. Left Ventricle Normal LV wall t hickness. Severely increas ed left ventricle cavity size. LVEF by Cleary' s method of disk assessment is severely reduced (25-29%) . The following se gments appear akinetic: mid-distal anterior septum and all apical segments. Basal to mid inferolatera l and lateral, basal inferior, basal anterior w all segments contract normally. All other segment ar e severely hypokinetic. Spontaneous contrast observe d in LV cavity. Global LV systol ic function severely reduced . Diastolic dysfun ction is likely due to concomitant heart disease. Left Atrium LA size is moder ately enlarged (42-48 ml/m2) . Right Ventricle RV chamber size is mildly enlarged . Global RV systol ic function is depressed . Right Atrium RA size is mildl y dilated. Atrial Septum Normal interatri al septum by available views. Aortic Valve Normal AoV struc ture. Doppler of the aortic valve was not obtained . Mitral Valve Normal MV struct ure. Mitral valve Dop pler was not obtained. Tricuspid Valve Mild tricuspid r egurgitation. TV structure is normal. Estimated peak s ystolic PA pressure is 45-50 mmHg (mild pulmonary hypertension) Mean PA pressure is 34 based on PI velocity. Pulmonic Valve Normal PV struct ure. Mild to moderate VT is present. Aorta Aortic root size (SInus of Valsalva diameter) is normal . Pericardium No significant p ericardial effusion. There is a large left pleural effusion IVC/SVC/PA/PV/Pleural The estimated RA pressure by IVC dynamics 16-20 mmHg . Chambers/Structures Left Atrium LA Volume: 75.64 ml LA Area: 22.32 cm^2 LA Vol. Index: 43 ml/m^2 Left Ventricle LVIDd: 5.75 cm LVEDV:160.93 ml LV Septum Diastolic: 1.01 cm LV PW Diastolic: 1.15 cm LVEDV Cleary's:203.56 ml LVESV Cleary's:152.7 ml LVEF Cleary's: 25 % LVEDVI: 116 ml/m^2 LVESVI: 87 ml/m^2 LVOT Diameter: 2.23 cm Right Ventricle RV Diast Dim.: 3.86 cm TAPSE: 1.15 cm RVOT VTI: 14.92 cm Aorta Ao Root S of Shazia.: 3.43 cm Doppler/Quantitative Measurements LVOT LVOT Diameter: 2.23 cm LVOT Area: 3.91 cm^2 RVOT RVOT VTI (PW): 15.53 cm Tricuspid Valve TR Velocity: 2.61 m/s TR Gradient: 27.16 mmHg Pulmonic Valve PI Peak Velocity: 2.45 m/s Performing Organization Address City/State/Zipcode Phone Number [facility] ECHO HEARTLAB [facility] CBC with platelet count + automated diff (02/05/2020 10:17 PM CDT)Only the most recent of6 resultswithin the time period is included. WBC 12.6 (H) 3.5 - 10.5 K/L [facility] RBC 2.87 (L) 4.63 - 6.08 M/L [facility] Hemoglobin 9.3 (L) 13.7 - 17.5 GM/DL [facility] Hematocrit 28.4 (L) 40.1 - 51.0 % [facility] MCV 99.0 (H) 79.0 - 92.[address] [facility] MCH 32.4 (H) 25.7 - 32.[address] [facility] MCHC 32.7 32.3 - 36.5 GM/DL [facility] RDW 17.3 (H) 11.6 - 14.4 % [facility] Platelets 346 150 - 450 K/CU MM [facility] MPV 10.9 9.4 - 12.4 fL [facility] nRBC 0 0 - 0 /100 WBC [facility] % Neutros 84 % [facility] % Lymphs 5 % [facility] % Monos 9 % [facility] % Eos 0 % [facility] % Baso 0 % [facility] # Neutros 10.62 (H) 1.78 - 5.38 K/L [facility] # Lymphs 0.58 (L) 1.32 - 3.57 K/L [facility] # Monos 1.19 (H) 0.30 - 0.82 K/L [facility] # Eos 0.02 (L) 0.04 - 0.54 K/L [facility] # Baso 0.04 0.01 - 0.08 K/L [facility] Immature 1 0 - 1 % [facility] Granulocytes-Relative [facility]TER Specimen Blood Performing Organization Address City/[facility]/Zipcode Phone Number [facility] [address] [place] [address] CENTER ULTRAFILTRATION HD CRRT (02/04/2020 9:55 PM CDT) Narrative Performed At Estrellita Melara RN 02/04/2020 9:56 PM Patient is awake, alert and oriented X 4 . Here for UF for 2 hours with UF goal of 1.5L. The following most updated labs are as follows: Lab Results Component Value Date HEPBSAG Nonreactive 01/23/2020 Lab Results Component Value Date GLUCOSE 103 02/02/2020 CALCIUM 8.4 02/02/2020 NA 140 02/02/2020 K 4.0 02/02/2020 CO2 27 02/02/2020 CL 101 02/02/2020 BUN 62 (H) 02/02/2020 CREATININE 6.11 (H) 02/02/2020 Lab Results Component Value Date WBC 11.9 (H) 02/04/2020 HGB 8.6 (L) 02/04/2020 HCT 26.6 (L) 02/04/2020 MCV 98.5 (H) 02/04/2020 PLT 226 02/04/2020 Patient dialyzed for 2 hours with Net UF = 1.5 L using the Left arm AV fistula access. Vital signs stabl e and well within the set parameters. Report given to primary RN. Patient was able to tolerate the treatment well. Iron, TIBC, % sat. (without ferritin) (02/04/2020 4:34 AM CDT) Iron 31.0 (L) 40.0 - 160.0 ug/dL [facility] TIBC 170 (L) 250 - 450 ug/dL [facility] Iron % Saturation 18 (L) 20 - 55 % [facility] Specimen Blood Narrative Performed At Ice Cream Freezer Assistant CHARLES Hamlin [facility] Performing Organization Address City/[facility]/Zipcode Phone Number [facility] [address] [place] [address] CENTER Ferritin (02/04/2020 4:34 AM CDT) Ferritin 3,333.01 (H) 5.00 - 275.00 ng/mL [facility] Specimen Blood Narrative Performed At [employer] Freezer Assistant ID - [id number] [facility] Performing Organization Address City/[facility] Cent[facility]ode Phone Number [facility] [address] [place] [address] C[place] Prepare Leuko-Red RBC (02/01/2020 11:54 PM CDT) CROSSMATCH COMPATIBLE SAFETRACE TX Unit ABO O Pos SAFETRACE TX UNIT NUMBER [id number] SAFETRACE TX Status TX_TIMEINCHART SAFETRACE TX Blood Bank Product RED BLOOD CELLS SAFETRACE TX PRODUCT CODE [id number] SAFETRACE TX Specimen Other Performing Organization Address [facility] Phone Number SAFETRACE TX Hemoglobin and hematocrit (01/31/2020 1:25 PM CDT) Hemoglobin 8.9 (L) 13.7 - 17.5 GM/DL [facility] Hematocrit 26.7 (L) 40.1 - 51.0 % [facility] Specimen Blood Narrative Performed At [employer] Cream Freezer Assistant ID - [id number] [facility] Performing Organization Address [facility] Cent[facility]ode Phone Number [address] [address] C[place] Transfuse Leuko-Red RBC (01/31/2020 6:47 AM CDT)Only the most recent of4 resultswithin the time period is included.Blood gas, arterial (01/31/2020 3:27 AM CDT)Only the most recent of30 resultswithin the time period is included. pH, Arterial 7.39 7.35 - 7.45 [facility] pCO2, Arterial 34 (L) 35 - 45 mmHg [facility] pO2, Arterial 73 (L) 80 - 90 mmHg [facility] O2 Sat, Arterial 94.7 (L) 96.0 - 97.0 % [facility] HCO3, Arterial 20 (L) 21 - 29 mmol/L [facility] Base Excess, Arterial -4.5 (L) -2.0 - 3.0 mmol/L [facility] Patient Temperature 36.9 C [facility] FIO2 21.0 % [facility] Specimen Blood, Arterial Performing Organization Address [facility]conv Phone Number [address] [address] [place] Oxygen saturation, measured (01/31/2020 3:12 AM CDT)Only the most recent of16 resultswithin the time period is included. O2 Saturation (Measured) 92.4 % [facility] Specimen Blood Performing Organization Address [facility] Phone Number [address] [address] [place] Calcium, Ionized (01/31/2020 3:12 AM CDT)Only the most recent of27 results within the time period is included. Calcium, Ion 1.10 (L) 1.12 - 1.27 mmol/L [facility] pH, Blood 7.39 [facility] Specimen Blood Performing Organization Address [facility] Phone Number [address] [address] [place] Lactic Acid, Arterial (01/30/2020 11:06 PM CDT)Only the most recent of19 results within the time period is included. Lactate, Art 0.8Comment: Specimen 0.5 - 2.2 mmol/L [facility] slightly hemolyzed [facility] Specimen Blood, Arterial Narrative Performed At [employer] Assistant ID - [id number] [facility] Specimen slightly icteric Performing Organization Address [facility]/Zipcode Phone Number [facility] [address] [place] [address] CENTER 2D Echo W/Doppler(CW/PW/Color) (01/30/2020 1:49 PM CDT) Ejection Fraction [facility] ECHO HEAR TLAB [facility] Specimen Narrative Performed At Transthoracic Echocardiography Report (T TE) [facility] ECHO HEARTLAB [facility] Demographics Patient Name Aniket DAVIS of Study 01/30/2020 MIGUEL [id number] Gender Male Visit Number [id number] Coco own [id number] Room Number C823 Number Date of Birth1935 Referring Physician Lan Briones MD Age84 year(s) Lubricating Specialist Radha Chen [facility] Sakina Curry Physician MD Ester Procedure Type of Study TTE procedure:2DECHO W DOPPLER(CW/PW/COLOR) (STAT) Indications:Evaluation of Ventricular function post ACS. Clinical History HGB 8.1 HCT 25.0 % CAD DM ESRD GOUT HTN AICD BYPASS AORTO CORONARY ALIA/SVG Contrast Medium: Definity. Amount - 2 ml Height: 66 inches Weight: 72.12 kg (159 lbs) BSA: 1.81 m^2 BMI: 25.66 kg/m^2 HR: 80 bpm BP: 101/50 mmHg Summary LV endocardium is adequately visualized with IV ultrasound enhancing agent. The left ventricle is chamber size (by vol index) is severely enlarged (male - LVED vol >100ml/m2). Normal LV wall thickness. The following segment(s) appear akinetic: Mid-distal anterior septum, extensive apical akinesis. The other segments are mildly hypokinet ic. Global LV systolic function severely re duced . LVEF by Cleary's method of disk assessment is severely reduced (20-24%) . Grade 2 diastolic dysfunction (moderately increased LA pressure). Mild tricuspid regurgitation. Estimated peak systolic PA pressure is 40-45 mmHg (mild pulmonary hypertension) A trivial pericardial effusion is prese nt . Previous Study In comparison with the prior exam on 01/27/2020 there are no significant changes. Signature Findings Technical Quality: Technically adequate exam. Left Ventricle LV endocardium is adequately visualized with IV ul trasound enhancing agent. The left ventr icle is ch alex size (by vol index) is severely en larged (m praneeth - LVED vol >100ml/m2). No rmal LV wall thickness. Th e following segment(s) appear akinetic: Mi d-distal anterior septum, extensive apic al ak inesis. Th e other segments are mildly hypokinetic. Gl obal LV systolic function severely reduc ed . LV EF by Cleary's method of disk assessmen t is se verely reduced (20-24%) . Grade 2 diasto lic dy sfunction (moderately increased LA press ure). Left AtriumLA size is mildly enlarged (35-41 ml/m2) . Right VentricleRV chamber size is normal . Gl obal RV systolic function is low normal . RV pacing wire is visualized . Right Atrium RA cavity size is mildly enlarged . RA pacing wire is visualized . Aortic Valve Mild AoV cusp calcification. Mi ld aortic regurgitation. Mitral Valve Mild mitral annular calcification. Mi ld MV leaflet calcification. Mi ld mitral regurgitation. Tricuspid ValveMild tricuspid regurgitation. Es timated peak systolic PA pressure is 40- 45 mmHg (m ild pulmonary hypertension) . No rmal TV structure. Pulmonic Valve Mild pulmonary regurgitation. No rmal PV structure and function. AortaAortic root size (SInus of Valsalva diameter) i s no rmal . PericardiumA trivial pericardial effusion is present . IVC/SVC/PA/PV/PleuralThe estimated RA pressure by IVC dynamics 5-10mmHg . Chambers/Structures Left Atrium LA Volume: 74.42 ml LA Area: 23.94 cm^2 LA Vol. Index: 41 ml/m^2 Left Ventricle LVIDd: 5.43 cm LV Septum Diastolic: 1.13 cm LV PW Diastolic: 1.07 cm LVEDV Cleary's:189.96 ml LVESV Cleary's:146.65 ml LVEF Cleary's: 22.8 % LVEDVI: 105 ml/m^2 LVESVI: 81 ml/m^2 LVOT Diameter: 2.03 cm Right Ventricle RVOT VTI: 16.52 cm Aorta Ao Root S of Shazia.: 3.85 cm Doppler/Quantitative Measurements Mitral Valve MV Peak E-Wave: 1.23 m/sMV Peak A-Wave: 0.81 m/s E/A Ratio : 1.51 Peak Gradient: 6.05 mmHg Deceleration Time: 217 msec MV Tej. Peak: Tissue Doppler E' Lateral Velocity: 0.06 m/s E/E': 20.56 Aortic Valve Peak Velocity: 2.02 m/sMean Velocity: 1.26 m/s Peak Gradient: 16.25 mmHgMean Gradient: 7.62 mmHg AV Area (continuity): 2.27 cm^2 AV VTI: 31.53 cm AV DVI: 0.7 LVOT Peak Velocity: 1.22 m/s Peak Gradient: 5.91 mmHg Mean Velocity: 0.81 m/s Mean Gradient: 3.12 mmHg LVOT Diameter: 2.03 cmLVOT VTI: 22.12 cm LVOT Area: 3.24 cm^2LVOT SV:71.56 ml LVOT CO: 5.72 l/min LVOT CI: 3.16 l/min/m^2 Tricuspid Valve TR Velocity: 2.82 m/s TR Gradient: 31.71 mmHg Procedure Note Interface, External Ris In - 01/30/2020 4:47 PM CDT Transthoracic Echocardiography Report (TTE) Demographics Patient Name STEVE DAVIS Date of Study 01/30/2020 MIGUEL Gende r Male Visit Number [id number] Race Unknown Room Number C823 Number Date of 1935 Refer ring Physician Lan Briones MD Age 84 year(s) Sonog rapher Abed Brian Lock Maintenance Supervisor Chastity Chen RDCS [facility] MD Procedure Type of Study TTE procedure:2DECHO W DOPPLE R(CW/PW/COLOR) (STAT) Indications:Evaluation of Ventricular fu nction post ACS. Clinical History HGB 8.1 HCT 25.0 % CAD DM ESRD GOUT HTN AICD BYPASS AORTO CORONARY ALIA/SVG Contrast Medium: Definity. Amount - 2 ml Height: 66 inches Weight: 72.12 kg (159 lbs) BSA: 1.81 m^2 BMI: 25.66 kg/m^2 HR: 80 bpm BP: 101/50 mmHg Summary LV endocardium is adequately visualized with IV ultrasound enhancing agent. The left ventricle is chamber si ze (by vol index) is severely enlarged (male - LVED vol >100ml/m2). Normal LV wall thickness. The following segment(s) appear akineti c: Mid-distal anterior septum, extensive apical akinesis. The other segments are mildly hypokinet ic. Global LV systolic function severely re duced . LVEF by Cleary's method of disk assess ment is severely reduced (20-24%) . Grade 2 diastolic dysfunction (moderate ly increased LA pressure). Mild tricuspid regurgitation. Estimated peak systolic PA pressure is 40-45 mmHg (mild pulmonary hypertension) A trivial pericardial effusion is prese nt . Previous Study In comparison with the prior exam on there are no significant changes. Signature Findings Technical Quality: Technically adequate exam. Left Ventricle LV endocardium i s adequately visualized with IV ultrasound enhan cing agent. The left ventricle is chamber size (by vol index) is severely enlarged (male - LVED vol >100ml/m2). Normal LV wall t hickness. The following se gment(s) appear akinetic: Mid-distal anter ior septum, extensive apical akinesis. The other segmen ts are mildly hypokinetic. Global LV systol ic function severely reduced . LVEF by Cleary' s method of disk assessment is severely reduced (20-24%) . Grade 2 diastolic dysfunction (mod erately increased LA pressure). Left Atrium LA size is mildl y enlarged (35-41 ml/m2) . Right Ventricle RV chamber size is normal . Global RV systol ic function is low normal . RV pacing wire i s visualized . Right Atrium RA cavity size i s mildly enlarged . RA pacing wire i s visualized . Aortic Valve Mild AoV cusp ca lcification. Mild aortic regu rgitation. Mitral Valve Mild mitral nida lar calcification. Mild MV leaflet calcification. Mild mitral regu rgitation. Tricuspid Valve Mild tricuspid r egurgitation. Estimated peak s ystolic PA pressure is 40-45 mmHg (mild pulmonary hypertension) . Normal TV struct ure. Pulmonic Valve Mild pulmonary r egurgitation. Normal PV struct ure and function. Aorta Aortic root size (SInus of Valsalva diameter) is normal . Pericardium A trivial perica rdial effusion is present . IVC/SVC/PA/PV/Pleural The estimated RA pressure by IVC dynamics 5-10mmHg . Chambers/Structures Left Atrium LA Volume: 74.42 ml LA Area: 23.94 cm^2 LA Vol. Index: 41 ml/m^2 Left Ventricle LVIDd: 5.43 cm LV Septum Diastolic: 1.13 cm LV PW Diastolic: 1.07 cm LVEDV Cleary's:189.96 ml LVESV Cleary's:146.65 ml LVEF Cleary's: 22.8 % LVEDVI: 105 ml/m^2 LVESVI: 81 ml/m^2 LVOT Diameter: 2.03 cm Right Ventricle RVOT VTI: 16.52 cm Aorta Ao Root S of Shazia.: 3.85 cm Doppler/Quantitative Measurements Mitral Valve MV Peak E-Wave: 1.23 m/s MV Peak A-Wave: 0.81 m/s E/A Ratio: 1.51 Peak Gradient: 6.05 mmHg Deceleration Time: 217 msec MV Tej. Peak: Tissue Doppler E' Lateral Velocity: 0.06 m/s E/E': 20.56 Aortic Valve Peak Velocity: 2.02 m/s Mean Velocity: 1.26 m/s Peak Gradient: 16.25 mmHg Mean Gradient: 7.62 mmHg AV Area (continuity): 2.27 cm^2 AV VTI: 31.53 cm AV DVI: 0.7 LVOT Peak Velocity: 1.22 m/s Pea k Gradient: 5.91 mmHg Mean Velocity: 0.81 m/s Teresita n Gradient: 3.12 mmHg LVOT Diameter: 2.03 cm LVO T VTI: 22.12 cm LVOT Area: 3.24 cm^2 LVO T SV:71.56 ml LVOT CO: 5.72 l/min LVO T CI: 3.16 l/min/m^2 Tricuspid Valve TR Velocity: 2.82 m/s TR Gradient: 31.71 mmHg Performing Organization Address City/[facility]/Zipcode Phone Number [facility]ART[facility] MKCKANISHA [facility] BUN and Creatinine (01/30/2020 2:33 AM CDT)Only the most recent of3 results within the time period is included. BUN 35 (H) 7 - 21 mg/dL [facility] Creatinine 2.99 (H) 0.57 - 1.25 mg/dL [facility] BUN/Creatinine Ratio 11.7Comment: For a [facility] normal individual on a [facility] normal diet, the reference interval for the mass ratio ranges between 12:1 and 20:1 (BUN in mg/dL/creatinine in mg/dL) EGFR 20Comment: ESTIMATED GFR mL/min/1.73 sq m [facility] IS NOT ACCURATE [facility] CREATININE CLEARANCE IN PREDICTING GLOMERULAR FILTRATION RATE. ESTIMATED GFR IS NOT APPLICABLE FOR DIALYSIS PATIENTS. Specimen Blood Narrative Performed At Ice Cream Freezer Assistant ID - DEANDRE M [facility] Specimen slightly icteric Performing Organization Address City/[facility]/Zipcode Phone Number [facility] [address] [place] [address] CENTER Potassium (01/29/2020 3:02 PM CDT)Only the most recent of11 resultswithin the time period is included. Potassium 3.9Comment: Specimen slightly 3.5 - 5.1 meq/L [facility] BCM hemolyzed [facility] Specimen Blood Narrative Performed At Ice Cream Freezer Assistant ID - [email or web address] [facility] Performing Organization Address City/[facility] Phone Number [address] [address] CENTER Hepatic function panel (01/29/2020 3:20 AM CDT)Only the most recent of6 results within the time period is included. Protein, Total 6.0 6.0 - 8.3 gm/dL [facility] Albumin 3.2 (L) 3.5 - 5.0 g/dL [facility] Total Bilirubin 3.2 (H) 0.2 - 1.2 mg/dL [facility] Bilirubin, Direct 2.3 (H) 0.1 - 0.5 mg/dL [facility] Alkaline Phosphatase 212 (H) 40 - 150 U/L [facility] AST 87 (H) 5 - 34 U/L [facility] ALT 45 6 - 55 U/L [facility] Specimen Blood Narrative Performed At Ice Cream Freezer Assistant ID - DANIEL Wright [facility] Specimen slightly icteric Performing Organization Address [facility] Phone Number [address] [address] CENTER pH, arterial (01/28/2020 8:37 AM CDT)Only the most recent of13 resultswithin the time period is included. pH, Arterial 7.39 7.35 - 7.45 [facility] Specimen Blood, Arterial Performing Organization Address City/[facility]/Zipcode Phone Number [address] [address] CENTER 2D Echo W/Doppler(CW/PW/Color) (01/27/2020 11:44 AM CDT) Ejection Fraction [facility] ECHO HEAR TLAB MKCKESSON CPACS Specimen Narrative Performed At Transthoracic Echocardiography Report (T TE) [facility] ECHO HEARTLAB [facility] Demographics Patient Name Aniket DAVIS of Study 01/27/2020 MIGUEL [id number] Gender Male Visit Number [id number] Coco bansal [id number] Room Number C823 Number Date of Birth1935 Referring Physician Anselmo Ahmadi Age84 year(s) Lubricating Specialist Librado Pham MD Procedure Type of Study TTE procedure:2DECHO W DOPPLER(CW/PW/COLOR) (Routine) Indications:Hypotension or hemodynamic instability. Clinical History HGB 8.3 HCT 24.7 % CAD ESRD DM GOUT HTN BYPASS AORTO CORONARY HTN Contrast Medium: Definity. Height: 66 inches Weight: 72.12 kg (159 lbs) BSA: 1.81 m^2 BMI: 25.66 kg/m^2 HR: 81 bpm BP: 105/49 mmHg Summary 1. LV is severely enlarged. 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 The other segments are mildly hypokinetic. LVEF is severely reduced (25-29%) 2. Grade 2 diastolic dysfunction (moderately increased LA pressure). 3. RV chamber size is normal . Global RV systolic function is low normal 4. Estimated peak systolic PA pressure is 40-45 mmHg (mild pulmonary hypertension) . 5. A small pericardial effusion is pres ent . Previous Study In comparison with the prior exam 01-22-20 the following changes are noted: LV systolic function is the same, increased sizes of aortic root and ascending aorta, a small pericardial effusion are new . Signature Findings Technical Quality: Technically adequate exam. Left Ventricle The left ventricle is chamber size (by vol index) is severely enlarged (male - LVED vol >100m l/m2). No rmal LV wall thickness. Th e following segment(s) appear akinetic: apex, all ap ical, anteroseptum, all mid-distal segme nts. Th e other segments are mildly hypokinetic. Gl obal LV systolic function severely reduc ed . LV EF by Cleary's method of disk assessmen t is se verely reduced (25-29%) . Th e LVEF was measured using Cleary's bi-p char me thod of disk . LV endocardium is adequately visualized wit h IV ul trasound enhancing agent. Gr saira 2 diastolic dysfunction (moderately increased LA pressure). Left AtriumLA size is moderately enlarged (42-48 ml/m2) . Right VentricleRV chamber size is normal . Gl obal RV systolic function is low normal . Right Atrium RA cavity size is mildly enlarged . Aortic Valve Mild AoV cusp calcification. Mi ld aortic regurgitation. Mitral Valve Mild mitral annular calcification. Mi ld MV leaflet calcification. Mi ld mitral regurgitation. Tricuspid ValveMild tricuspid regurgitation. Es timated peak systolic PA pressure is 40- 45 mmHg (m ild pulmonary hypertension) . Pulmonic Valve Mild pulmonary regurgitation. No rmal PV structure and function. AortaAortic root size (Sinus of Valsalva diameter) i s mi ldly dilated. 3.9 cm PericardiumA small pericardial effusion is present . IVC/SVC/PA/PV/PleuralThe estimated RA pressure by IVC dynamics 5-10mmHg . Chambers/Structures Left Atrium LA Volume: 80.27 ml LA Area: 29.83 cm^2 LA Vol. Index: 44 ml/m^2 Left Ventricle LVIDd: 5.03 cm LV Septum Diastolic: 1.04 cm LV PW Diastolic: 1.04 cm LVEDV Cleary's:220.79 ml LVESV Cleary's:164 ml LVEF Cleary's: 25.7 % LVEDVI: 122 ml/m^2 LVESVI: 91 ml/m^2 LVOT Diameter: 2.13 cm Right Atrium RA Vol. (Sngl Plane): 6 6.27 ml Right Ventricle TAPSE: 1.08 cm Aorta Ao Root S of Shazia.: 3.87 cm Ascending Aorta: 4.2 cm Doppler/Quantitative Measurements Mitral Valve MV Peak E-Wave: 1.22 m/sMV Peak A-Wave: 0.69 m/s E/A Ratio: 1. 76 Peak Gradient: 5.96 mmHg Deceleration Time: 128.7 msec MV Tej. Peak: Tissue Doppler E' Septal Velocity: 0.04 m/sE/E': 33.57 E' Lateral Velocity: 0.08 m/s Aortic Valve Peak Velocity: 1.4 m/s Mean Velocity: 0.93 m/s Peak Gradient: 7.88 mmHg Mean Gradient: 4.2 mmHg AV Area (continuity): 2.7 cm^2 AV VTI: 22.29 cm AV DVI: 0.76 LVOT Peak Velocity: 0.94 m/s Peak Gradient: 3.56 mmHg Mean Velocity: 0.62 m/s Mean Gradient: 1.84 mmHg LVOT Diameter: 2.13 cmLVOT VTI: 16.88 cm LVOT Area: 3.56 cm^2LVOT SV:60.12 ml LVOT CO: 4.87 l/min LVOT CI: 2.69 l/min/m^2 Tricuspid Valve TR Velocity: 2.93 m/s TR Gradient: 34.4 mmHg Procedure Note Interface, External Ris In - 01/27/2020 7:14 PM CDT Transthoracic Echocardiography Report (TTE) Demographics Patient Name STEVE DAVIS Date of Study 01/27/2020 MIGUEL Gende r Male Visit Number [id number] Race Unknown Room Number C823 Number Date of 1935 Refer ring Physician Anselmo Ahmadi Age 84 year(s) Sonog lu Rocha 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 Clinical History HGB 8.3 HCT 24.7 % CAD ESRD DM GOUT HTN BYPASS AORTO CORONARY HTN Contrast Medium: Definity. Height: 66 inches Weight: 72.12 kg (159 lbs) BSA: 1.81 m^2 BMI: 25.66 kg/m^2 HR: 81 bpm BP: 105/49 mmHg Summary 1. LV is severely enlarged. Septum, ant erior and apex are akinetic. The other segments are mildly hypokinetic. LVEF is severely reduced (25-29%) 2. Grade 2 diastolic dysfunction (moder ately increased LA pressure). 3. RV chamber size is normal . Global R V systolic function is low normal 4. Estimated peak systolic PA pressure is 40-45 mmHg (mild pulmonary hypertension) . 5. A small pericardial effusion is pres ent . Previous Study In comparison with the prior exam the following changes are noted: LV systolic function is the same, incre ased sizes of aortic root and ascending aorta, a small pericardial ef fusion are new . Signature Findings Technical Quality: Technically adequate exam. Left Ventricle The left ventric le is chamber size (by vol index) is severely enla rged (male - LVED vol >100ml/m2). Normal LV wall t hickness. The following se gment(s) appear akinetic: apex, all apical, anterose ptum, all mid-distal segments. The other segmen ts are mildly hypokinetic. Global LV systol ic function severely reduced . LVEF by Cleary' s method of disk assessment is severely reduced (25-29%) . The LVEF was teresita sured using Cleary's bi-plane method of disk . LV endocardium i s adequately visualized with IV ultrasound enhan cing agent. Grade 2 diastoli c dysfunction (moderately increased LA pressure). Left Atrium LA size is moder ately enlarged (42-48 ml/m2) . Right Ventricle RV chamber size is normal . Global RV systol ic function is low normal . Right Atrium RA cavity size i s mildly enlarged . Aortic Valve Mild AoV cusp ca lcification. Mild aortic regu rgitation. Mitral Valve Mild mitral nida lar calcification. Mild MV leaflet calcification. Mild mitral regu rgitation. Tricuspid Valve Mild tricuspid r egurgitation. Estimated peak s ystolic PA pressure is 40-45 mmHg (mild pulmonary hypertension) . Pulmonic Valve Mild pulmonary r egurgitation. Normal PV struct ure and function. Aorta Aortic root size (Sinus of Valsalva diameter) is mildly dilated. 3.9 cm Pericardium A small pericard ial effusion is present . IVC/SVC/PA/PV/Pleural The estimated RA pressure by IVC dynamics 5-10mmHg . Chambers/Structures Left Atrium LA Volume: 80.27 ml LA Area: 29.83 cm^2 LA Vol. Index: 44 ml/m^2 Left Ventricle LVIDd: 5.03 cm LV Septum Diastolic: 1.04 cm LV PW Diastolic: 1.04 cm LVEDV Cleary's:220.79 ml LVESV Cleary's:164 ml LVEF Cleary's: 25.7 % LVEDVI: 122 ml/m^2 LVESVI: 91 ml/m^2 LVOT Diameter: 2.13 cm Right Atrium RA Vol. (Sngl Plane): 66.27 ml Right Ventricle TAPSE: 1.08 cm Aorta Ao Root S of Shazia.: 3.87 cm Ascending Aorta: 4.2 cm Doppler/Quantitative Measurements Mitral Valve MV Peak E-Wave: 1.22 m/s M V Peak A-Wave: 0.69 m/s E /A Ratio: 1.76 P eak Gradient: 5.96 mmHg D eceleration Time: 128.7 msec MV Tej. Peak: Tissue Doppler E' Septal Velocity: 0.04 m/s E /E': 33.57 E' Lateral Velocity: 0.08 m/s Aortic Valve Peak Velocity: 1.4 m/s Mean Velocity: 0.93 m/s Peak Gradient: 7.88 mmHg Mean Gradient: 4.2 mmHg AV Area (continuity): 2.7 cm^2 AV VTI: 22.29 cm AV DVI: 0.76 LVOT Peak Velocity: 0.94 m/s Pea k Gradient: 3.56 mmHg Mean Velocity: 0.62 m/s Teresita n Gradient: 1.84 mmHg LVOT Diameter: 2.13 cm LVO T VTI: 16.88 cm LVOT Area: 3.56 cm^2 LVO T SV:60.12 ml LVOT CO: 4.87 l/min LVO T CI: 2.69 l/min/m^2 Tricuspid Valve TR Velocity: 2.93 m/s TR Gradient: 34.4 mmHg Performing Organization Address [facility] Phone Number [facility] ECHO HEARTLAB MKCKESSON CPACS HGB/HCT (H&H)-Stat Lab (01/27/2020 6:38 AM CDT)Only the most recent of13 resultswithin the time period is included. Hemoglobin 7.9 (L) 13.0 - 16.8 g/dL [facility] Hematocrit 23.0 (L) 40.0 - 50.0 % [facility] Specimen Blood, Arterial Performing Organization Address [facility] Phone Number [address] [address] CENTER Potassium-Stat Lab (01/26/2020 4:39 PM CDT)Only the most recent of11 results within the time period is included. Potassium 3.7 3.6 - 5.5 meq/L [facility] Specimen Blood, Arterial Performing Organization Address [facility] Phone Number [address] [address] [place] Sodium Na-Stat Lab (01/26/2020 4:39 PM CDT)Only the most recent of11 results within the time period is included. Sodium 133 (L) 136 - 145 meq/L [facility] Specimen Blood, Arterial Performing Organization Address [facility] Phone Number [address] [address] CENTER Glucose-Stat Lab (01/26/2020 4:39 PM CDT)Only the most recent of11 results within the time period is included. Glucose 109 70 - 110 mg/dL [facility] Specimen Blood, Arterial Performing Organization Address [facility] Phone Number [address] [address] CENTER Vancomycin level, random (01/26/2020 2:05 AM CDT) Vancomycin Rm 15.7 ug/mL [facility] Specimen Blood Narrative Performed At Reference Range: No Normals [facility] Ice Cream Freezer Assistant ID - ANA Moyer Performing Organization Address [facility] Phone Number [address] [address] CENTER PT/aPTT (01/25/2020 3:41 AM CDT)Only the most recent of2 resultswithin the time period is included. Protime 17.7 (H) 11.9 - 14.2 seconds [facility] INR 1.5 <=5.9 [facility] PTT 44.3 (H) 22.5 - 36.0 seconds [facility] Specimen Blood Narrative Performed At Effective 02/08/2019: PT Reference Range [facility] Change New: 11.9-14.2Previous: 11.7-14.7 RECOMMENDED COUMADIN/WARFARIN INR THERAPY RANGES STANDARD DOSE: 2.0-3.0Includes: PROPHYLAXIS for venous thrombosis, systemic embolization; TREATMENT for venous thrombosis and/or pulmonary embolus. HIGH RISK: Target INR is 2.5-3.5 for patients wiht mechanical heart valves. Performing Organization Address [facility] Cent[facility]ode Phone Number [address] [address] CENTER Prepare PLT (01/24/2020 11:54 PM CDT) Unit ABO B Neg SAFETRACE TX UNIT NUMBER [id number] SAFETRACE TX Status TX_TIMEINCHART SAFETRACE TX Blood Bank Product PLATELETS SAFETRACE TX PRODUCT CODE [id number] SAFETRACE TX Unit ABO A Neg SAFETRACE TX UNIT NUMBER [id number] SAFETRACE TX Status TX_TIMEINCHART SAFETRACE TX Blood Bank Product PLATELETS SAFETRACE TX PRODUCT CODE [id number] SAFETRACE TX Performing Organization Address [facility] Phone Number SAFETRACE TX Prepare RBC (01/24/2020 11:54 PM CDT) CROSSMATCH COMPATIBLE SAFETRACE TX Unit ABO O Pos SAFETRACE TX UNIT NUMBER [id number] SAFETRACE TX Status READY SAFETRACE TX Blood Bank Product RED BLOOD CELLS SAFETRACE TX PRODUCT CODE [id number] SAFETRACE TX CROSSMATCH COMPATIBLE SAFETRACE TX Unit ABO O Pos SAFETRACE TX UNIT NUMBER [id number] SAFETRACE TX Status READY SAFETRACE TX Blood Bank Product RED BLOOD CELLS SAFETRACE TX PRODUCT CODE [id number] SAFETRACE TX CROSSMATCH COMPATIBLE SAFETRACE TX Unit ABO O Pos SAFETRACE TX UNIT NUMBER [id number] SAFETRACE TX Status TX_TIMEINCHART SAFETRACE TX Blood Bank Product RED BLOOD CELLS SAFETRACE TX PRODUCT CODE [id number] SAFETRACE TX CROSSMATCH COMPATIBLE SAFETRACE TX Unit ABO O Pos SAFETRACE TX UNIT NUMBER [id number] SAFETRACE TX Status TX_TIMEINCHART SAFETRACE TX Blood Bank Product RED BLOOD CELLS SAFETRACE TX PRODUCT CODE [id number] SAFETRACE TX Performing Organization Address [facility] Phone Number SAFETRACE TX Calcium (01/24/2020 3:43 AM CDT) Calcium 8.5 8.4 - 10.2 mg/dL [facility] Specimen Blood Narrative Performed At Ice Cream Freezer Assistant ID - PIAYA L [facility] Performing Organization Address [facility] Phone Number [facility] [address] [place] [address] CENTER ECHOCARDIOGRAM REPORT - SCAN (01/23/2020 9:12 PM CDT) Narrative Performed At This result has an attachment that is no t available. PERIPHERAL VASCULAR REPORT - SCAN (01/23/2020 9:12 PM CDT) Narrative Performed At This result has an attachment that is no t available. Glucose-STAT (01/23/2020 2:37 PM CDT) Glucose 166 (H) 70 - 105 mg/dL [facility] Specimen Blood Narrative Performed At Ice Cream Freezer Assistant ID - [id number] [facility] Performing Organization Address City/[facility] Centercode Phone Number [address] [phone] CENTER aPTT (01/23/2020 11:22 AM CDT)Only the most recent of5 resultswithin the time period is included. PTT 39.6 (H) 22.5 - 36.0 seconds [facility] Specimen Blood Performing Organization Address [facility] Phone Number [address] [phone] [place] Fibrinogen (01/23/2020 11:22 AM CDT)Only the most recent of2 resultswithin the time period is included. Fibrinogen 485 (H) 225 - 434 mg/dl [facility] Specimen Blood Performing Organization Address City/[facility] Cent[facility]ode Phone Number [address] [phone] [place] Platelet count (01/23/2020 11:22 AM CDT)Only the most recent of2 resultswithin the time period is included. Platelets 231Comment: Discordant PLT 150 - 450 K/CU MM [facility] result compared to previous [facility] result; clinical correlation required. Specimen Blood Narrative Performed At Ice Cream Freezer Assistant ID - [id number] [facility] Performing Organization Address [facility] Centercode Phone Number [address] [address] CENTER POC ACTIVATED CLOTTING TIME (01/23/2020 10:05 AM CDT)Only the most recent of4 resultswithin the time period is included. Activated Clotting Time 131Comment: : 74-137 sec [facility] seconds, Baseline: [facility]ED [facility] [address], [address]: Ice Cream Freezer Assistant/[employer] Estates Attorney ID = [id number] for CAPRICE WEINSTEIN Specimen Blood Performing Organization Address [facility] Centercode Phone Number [address] [address] CENTER Transfuse Leuko-Red PLT (01/23/2020 10:03 AM CDT)Only the most recent of2 resultswithin the time period is included.AFB culture + smear (non-sputum) (01/23/2020 8:47 AM CDT) Result No acid-fast bacilli isolated in [facility] 42 days CENTER AFB Smear No acid fast bacilli seen [facility] Specimen Wound Performing Organization Address [facility] Phone Number [address] [address] [place] Anaerobic culture (01/23/2020 8:47 AM CDT) Result No anaerobes isolated [facility] [facility] Specimen Wound Performing Organization Address [facility] Phone Number [address] [address] CENTER Surgically obtained culture + gram stain (01/23/2020 8:47 AM CDT) Result No growth [facility] Gram Stain Result <1+ White blood cells seen [facility] Gram Stain Result No organisms seen [facility] Specimen Wound Performing Organization Address [facility] Centercode Phone Number [address] [address] CENTER Fungus culture + smear (01/23/2020 8:47 AM CDT) Result No fungus isolated in 28 days [facility] Fungus Smear No fungi seen [facility] Specimen Wound Performing Organization Address City/State/Zipcode Phone Number [facility] [address] [place] [address] [place] SPIN/CONCENTRATION CHARGE (01/23/2020 8:47 AM CDT) Concentration charged Done [facility] Specimen Wound Performing Organization Address City/[facility] Cent[facility]ode Phone Number [facility] [address] [place] [address] [place] DONELL (01/23/2020 8:20 AM CDT) Narrative Performed At Julio Bhatti MD 01/23/2020 10:01 AM DONELL Date: 01/23/2020 8:20 AM Sex: Male Locati on: OR Requesting Physician: Bismark Augustine MD Examiner: Julio Bhatti MD Nguyen, Anvinh, MD IntubatedSeda ishaan Patient screened for esoph disease: Yes Insertion: easy Probe Type: multiplane Modalities: 2D, CFM, CWD and PWD Pre Intervention Summary: 84 yo M presen ting for ACB with Dr. Augustine. IABP 1:1 Aorta: no aneurysm, no dissection, < 2 m m intimal thickening descending aorta, IABP 1.5 cm from subclavian take off AV: trileaflet morphology with partially fused NCC/RCC , no aortic stenosis (mean gradient 3), mild central aortic regurgitation ( jet does not extend to anterior mitral leaflet tip) LV: enlarged chamber size, depressed sys tolic function (EF ~25% by qualitative assessment), anterior/anteroseptal wall ak inesis, no thrombus MV: normal morphology, mild mitral regur gitation (VC <0.3, regurgitant volume 8 cc), no mitral stenosis LA: no ANNABEL thrombus, normal size and fun ction PV: limited visualization RV: normal sized chamber, low normal function (TAPSE 1 .96 cm), no thrombus TV: normal morphology, trace tricuspid regurgitation ( TV inflow velocities < 40 cm/s) RA: no thrombus No evidence of LAKESHA Bilateral pleural effusions No PFO by color dopper flow All findings communicated to surgical te am. Post Intervention Summary:S/p ACB x1 Epi 6, NE 8, Vaso 2, IABP 1:1 No evidence of aortic dissection, IABP 1 .5 cm away from subclavian take off LVEF ~25% by qualitative assessment, ant erior/anteroseptal akinesis AI now mild RV function normal TR mild to moderate in setting of CVP 18 No evidence of LAKESHA No pericardial effusion Bilateral pleural effusion present Surgeon notified of all findings. Procedure Note Julio Bhatti MD - 01/23/2020 8:20 AM CD T DONELL Date: 01/23/2020 8:20 AM Sex: Male Locati on: OR Requesting Physician: Bismark Augustine MD Examiner: Julio Bhatti MD Nguyen, Anvinh, MD Intubated Sedated Patient screened for esoph disease: Yes Insertion: easy Probe Type: multiplane Modalities: 2D, CFM, CWD and PWD Pre Intervention Summary: 84 yo M presen ting for ACB with Dr. Augustine. IABP 1:1 Aorta: no aneurysm, no dissection, < 2 m m intimal thickening descending aorta, IABP 1.5 cm from subclavian take off AV: trileaflet morphology with partially fused NCC/RCC, no aortic stenosis (mean gradient 3), mild central aortic regurgitation (jet does not extend to anterior mitral leaflet tip) LV: enlarged chamber size, depressed sys tolic function (EF ~25% by qualitative assessment), anterior/anteroseptal wall akinesis, no thrombus MV: normal morphology, mild mitral regur gitation (VC <0.3, regurgitant volume 8 cc), no mitral stenosis LA: no ANNABEL thrombus, normal size and fun ction PV: limited visualization RV: normal sized chamber, low normal fun ction (TAPSE 1.96 cm), no thrombus TV: normal morphology, trace tricuspid r egurgitation (TV inflow velocities < 40 cm/s) RA: no thrombus No evidence of LAKESHA Bilateral pleural effusions No PFO by color dopper flow All findings communicated to surgical te am. Post Intervention Summary: S/p ACB x1 Epi 6, NE 8, Vaso 2, IABP 1:1 No evidence of aortic dissection, IABP 1 .5 cm away from subclavian take off LVEF ~25% by qualitative assessment, ant erior/anteroseptal akinesis AI now mild RV function normal TR mild to moderate in setting of CVP 18 No evidence of LAKESHA No pericardial effusion Bilateral pleural effusion present Surgeon notified of all findings. Carotid doppler bilateral (01/23/2020 12:24 AM CDT) Ejection Fraction [facility] ECHO HEAR TLAB [facility] Specimen Impressions Performed At Right Impression [facility] ECHO HEARTLAB CKESSON [facility] 1. There is <50% diameter reduction (approximately 17% by 2-D measurement) in the internal carotid artery with a peak velocity of 38.1/19.9 cm/sec and heterogeneous plaque. 2. There is non-occluding plaque in the external carotid artery. 3. There is non-occluding plaque in the common carotid artery. 4. The vertebral artery flow is antegrade and normal. 5. The subclavian artery is within normal limits where visualized. 6. The waveforms were consistent with IABP support. Left Impression 1. There is <50% diameter reduction (approximately 16% by 2-D measurement) in the internal carotid artery with a peak velocity of 33.4/18.8 cm/sec and heterogeneous plaque. 2. There is non-occluding plaque in the external carotid artery. 3. There is non-occluding plaque in the common carotid artery. 4. The vertebral artery flow is antegrade and normal. 5. The subclavian artery is patent with a velocity of 169 cm/s. 6. The waveforms were consistent with IABP support. Conclusions Summary Carotid duplex scanning and color flow imaging were performed bilaterally. The arteries were adequately visualized. The bilateral internal carotid arteries had <50% hemodynamically insignificant stenosis (approximately 17% by 2-D measurement on the right, approximately 16% by 2-D measurement on the left) with heterogeneous plaque. The vertebral artery flow was antegrade and normal bilaterally. The right subclavian artery was patent with normal flow where visualized; the left subclavian artery was patent with an elevated velocity. The waveforms were consistent with IABP support. Signature Velocities are measured in cm/s ; Diameters are measured in cm Carotid Right Measurements + +----+----+-----+ +---- + + !Location !PSV !EDV !Angle!%Stenosis 2D!%Stenosis Doppler!Tortuosity ! + +----+----+-----+ +---- + + !Prox CCA !56.3!12.9!60 !! ! ! + +----+----+-----+ +---- + + !Dist CCA !55.7!18.2!60 !! ! ! + +----+----+-----+ +---- + + !Prox ICA !38.1!19.9!60 !17% !<50% ! ! + +----+----+-----+ +---- + + !Dist ICA !31.1!11.7!0!! ! ! + +----+----+-----+ +---- + + !Prox ECA !73.3!11.1!60 !! ! ! + +----+----+-----+ +---- + + !Vertebral!45.7!19.3!60 !! ! ! + +----+----+-----+ +---- + + !Prox Subclavian!106 !!60 !! ! ! + +----+----+-----+ +---- + + - There is antegrade vertebral flow noted on the right side. - Additional Measurements:ICAPSV/CCAPSV 0.68.ICAEDV/CCAEDV 1.54. Carotid Left Measurements + +----+----+-----+ +---- + + !Location !PSV !EDV !Angle!%Stenosis 2D!%Stenosis Doppler!Tortuosity ! + +----+----+-----+ +---- + + !Prox CCA !94.3!19.3!60 !! ! ! + +----+----+-----+ +---- + + !Dist CCA !47.5!28.1!60 !! ! ! + +----+----+-----+ +---- + + !Prox ICA !33.4!18.8!60 !16% !<50% ! ! + +----+----+-----+ +---- + + !Dist ICA !38.1!19.9!0!! ! ! + +----+----+-----+ +---- + + !Prox ECA !70.7!14.1!60 !! ! ! + +----+----+-----+ +---- + + !Vertebral!37.5!10.6!60 !! ! ! + +----+----+-----+ +---- + + !Prox Subclavian!169 !!60 !! ! ! + +----+----+-----+ +---- + + - There is antegrade vertebral flow noted on the left side. - Additional Measurements:ICAPSV/CCAPSV 0.8.ICAEDV/CCAEDV 1.03. Narrative Performed At LAB - Carotid Duplex Study [facility] ECHO HEARTLAB MKCKESSON [facility] Demographics Patient Aniket Vaz of Study 01/23/2020 NYDIA MOELLER Age 84 Visit [id number] GenderMale Date of 1935 Referring Anselmo Mnotenegro SRm Number SCPR Physician Lubricating Specialist Paul bolanos Physician Procedure Type of Study: Cerebral: Carotid, CAROTID DOPPLER, JAYSON ATERAL. Indications for Study:Pre ACB. Patient Status:Routine. Study Location:Portable. Technical Quality:Adequate visualization . Risk Factors History of Disease + +----+ + !Diagnosis !Date!Comments ! + +----+ + !History/Risk Factors: !!HTN, CAD, DM, CKD, ESRD, IABP ! + +----+ + Procedure Note Interface, External Ris In - 01/23/2020 10:07 AM CDT PV LAB - Carotid Duplex Study Demographics Patient Name STEVE DAVIS Da te of Study 01/23/2020 MIGUEL Ag e 84 Visit Number [id number] Toñito spencer Male Accession Number [id number] Da te of 1935 Referring Anselmo Nobles om Number SCPR Physician Lubricating Specialist Paul Fry In terpreting Ella Fajardo, Ph ysician MD Procedure Type of Study: Cerebral: Carotid, CAROTID DOPPLER, JAYSON ATERAL. Indications for Study:Pre ACB. Patient Status:Routine. Study Location:Portable. Technical Quality:Adequate visualization . Risk Factors History of Disease + +----+------- + !Diagnosis !Date!Comment s ! + +----+------- + !History/Risk Factors: ! !HTN, CA D, DM, CKD, ESRD, IABP ! + +----+------- + Impressions Right Impression 1. There is <50% diameter reduction (mona roximately 17% by 2-D measurement) in the internal carotid artery with a pe ak velocity of 38.1/19.9 cm/sec and heterogeneous plaque. 2. There is non-occluding plaque in the external carotid artery. 3. There is non-occluding plaque in the common carotid artery. 4. The vertebral artery flow is antegrad e and normal. 5. The subclavian artery is within meggan l limits where visualized. 6. The waveforms were consistent with IA BP support. Left Impression 1. There is <50% diameter reduction (mona roximately 16% by 2-D measurement) in the internal carotid artery with a pe ak velocity of 33.4/18.8 cm/sec and heterogeneous plaque. 2. There is non-occluding plaque in the external carotid artery. 3. There is non-occluding plaque in the common carotid artery. 4. The vertebral artery flow is antegrad e and normal. 5. The subclavian artery is patent with a velocity of 169 cm/s. 6. The waveforms were consistent with IA BP support. Conclusions Summary Carotid duplex scanning and color flow imaging were performed bilaterally. The arteries were adequately visualized . The bilateral internal carotid arteries had <50% hemodynamically insig nificant stenosis (approximately 17% by 2-D measurement on the right, ap proximately 16% by 2-D measurement on the left) with heterogeneous plaque. The vertebral artery flow was antegrade and normal bilaterally. The r ight subclavian artery was patent with normal flow where visualized; the left subclavian artery was patent with an elevated velocity. The waveform s were consistent with IABP support. Signature Velocities are measured in cm/s ; Diamet ers are measured in cm Carotid Right Measurements + +----+----+-----+------- -----+ + + !Location !PSV !EDV !Angle!%Stenos is 2D!%Stenosis Doppler!Tortuosity ! + +----+----+-----+------- -----+ + + !Prox CCA !56.3!12.9!60 ! ! ! ! + +----+----+-----+------- -----+ + + !Dist CCA !55.7!18.2!60 ! ! ! ! + +----+----+-----+------- -----+ + + !Prox ICA !38.1!19.9!60 !17% !<50% ! ! + +----+----+-----+------- -----+ + + !Dist ICA !31.1!11.7!0 ! ! ! ! + +----+----+-----+------- -----+ + + !Prox ECA !73.3!11.1!60 ! ! ! ! + +----+----+-----+------- -----+ + + !Vertebral !45.7!19.3!60 ! ! ! ! + +----+----+-----+------- -----+ + + !Prox Subclavian!106 ! !60 ! ! ! ! + +----+----+-----+------- -----+ + + - There is antegrade vertebral flow no ishaan on the right side. - Additional Measurements:ICAPSV/CCAPS V 0.68.ICAEDV/CCAEDV 1.54. Carotid Left Measurements + +----+----+-----+------- -----+ + + !Location !PSV !EDV !Angle!%Stenos is 2D!%Stenosis Doppler!Tortuosity ! + +----+----+-----+------- -----+ + + !Prox CCA !94.3!19.3!60 ! ! ! ! + +----+----+-----+------- -----+ + + !Dist CCA !47.5!28.1!60 ! ! ! ! + +----+----+-----+------- -----+ + + !Prox ICA !33.4!18.8!60 !16% !<50% ! ! + +----+----+-----+------- -----+ + + !Dist ICA !38.1!19.9!0 ! ! ! ! + +----+----+-----+------- -----+ + + !Prox ECA !70.7!14.1!60 ! ! ! ! + +----+----+-----+------- -----+ + + !Vertebral !37.5!10.6!60 ! ! ! ! + +----+----+-----+------- -----+ + + !Prox Subclavian!169 ! !60 ! ! ! ! + +----+----+-----+------- -----+ + + - There is antegrade vertebral flow no ishaan on the left side. - Additional Measurements:ICAPSV/CCAPS V 0.8.ICAEDV/CCAEDV 1.03. Performing Organization Address City/State/Zipcode Phone Number [facility] ECHO HEARTLAB [facility] 2D Echo W/Doppler(CW/PW/Color) (01/22/2020 8:43 PM CDT) Ejection Fraction [facility] ECHO HEAR TLAB [facility] Specimen Narrative Performed At Transthoracic Echocardiography Report (T TE) [facility] ECHO HEARTLAB [facility] Demographics Patient Aniket Vaz of Study01/22/2020 MIGUEL Gender Male Visit [id number] Race Unknown NumberSCPR Number Date of 1935 Referringfritz Ahmadi Physician Age 84 year(s) SonographColleen Krishnatomsá son, [facility] Interpreting Itz Norman Physician FellowDarnell wright MD Procedure Type of Study TTE procedure:2DECHO W DOPPLER(CW/PW/COLOR) (STAT) Indications:Assess for ACB. Clinical History DM, ESRD, HTN, CAD HGB 10.3 HCT 31.7 % Contrast Medium: Definity. Height: 66 inches Weight: 81.65 kg (180 lbs) BSA: 1.91 m^2 BMI: 29.05 kg/m^2 HR: 81 bpm BP: 99/61 mmHg Summary Normal left ventricular chamber size. Normal wall thickness. Entire anterior septum and apex are akinetic, mid-distal anterior and inferior zelaya are akinetic. Remaining segments are mildly hypokinetic (LCX territory and basal inferior wall). LV endocardium is adequately visualized with IV ultrasound enhancing agent. Estimated LVEF by qualitative assessment is severely reduced (25-29%) . Mild tricuspid regurgitation. Estimated peak systolic PA pressure is 35- 40 mmHg . The estimated RA pressure by IVC dynamics 5-10mmHg . No significant pericardial effusion is visualized. Signature Findings Left Ventricle Normal left ventricular chamber size. Normal wall th ickness. Entire anterior septum and apex are ak inetic, mid-distal anterior and inferior zelaya ar e akinetic. Remaining segments are mildl y hy pokinetic (LCX territory and basal infer ior wa ll). LV endocardium is adequately visualized wit h IV ul trasound enhancing agent. Es timated LVEF by qualitative assessment i s se verely reduced (25-29%) . Left AtriumLA size is normal . Right VentricleThe right ventricular chamber size and systolic fu nction are likely within normal limits. Right Atrium RA size is normal. Atrial SeptumNormal interatrial septum by available views. Aortic Valve Mild AoV cusp thickening. A trace of aortic regurgitation. Mitral Valve Normal MV structure. Mi ld mitral regurgitation. Tricuspid ValveMild tricuspid regurgitation. Es timated peak systolic PA pressure is 35- 40 mmHg . No rmal TV structure. Pulmonic Valve Normal PV structure appears normal by available vi ews. Mild VT. AortaAortic root size (SInus of Valsalva diameter) i s no rmal . PericardiumNo significant pericardial effusion is visualized. IVC/SVC/PA/PV/PleuralThe estimated RA pressure by IVC dynamics 5-10mmHg . Chambers/Structures Left Atrium LA Volume: 57.78 ml LA Area: 19.06 cm^2 LA Vol. Index: 30 ml/m^2 Left Ventricle LVIDd: 4.59 cm LV Septum Diastolic: 1.2 cm LV PW Diastolic: 0.93 cm LVEDV Cleary's:225.95 ml LVESV Cleary's:182.28 ml LVEF Cleary's: 19.3 %LVEDVI: 118 ml/m^2 LVESVI: 95 ml/m^2 LVOT Diameter: 2.09 cm Doppler/Quantitative Measurements Aortic Valve Peak Velocity: 1.23 m/sMean Velocity: 0.89 m/s Peak Gradient: 6.02 mmHg Mean Gradient: 3.57 mmHg AV Area (continuity): 2.68 cm^2 AV VTI: 22.09 cm AV DVI: 0.78 LVOT Peak Velocity: 1 m/s Peak Gradient: 4.03 mmHg Mean Velocity: 0.6 m/s Mean Gradient: 1.77 mmHg LVOT Diameter: 2.09 cm LVOT VTI: 17.24 cm LVOT Area: 3.43 cm^2 LVOT SV:59.12 ml LVOT CO: 4.79 l/minLVOT CI: 2.51 l/min/m^2 Tricuspid Valve TR Velocity: 2.6 m/s TR Gradient: 26.95 mmHg Procedure Note Interface, External Ris In - 01/23/2020 8:08 AM CDT Transthoracic Echocardiography Report (TTE) Demographics Patient Name STEVE DAVIS Date o f Study 01/22/2020 MIGUEL Gender Male Visit Number [id number] Race Unknown Room N [facility] SCPR Number Date of 1935 Referr nata morales Age 84 year(s) Sonogr vandana Pyle, RDMEHRDAD Interp reting Eli Mathews MD Fellow Darnell Akhtar MD Procedure Type of Study TTE procedure:2DECHO W DOPPLE R(CW/PW/COLOR) (STAT) Indications:Assess for ACB. Clinical History DM, ESRD, HTN, CAD HGB 10.3 HCT 31.7 % Contrast Medium: Definity. Height: 66 inches Weight: 81.65 kg (180 lbs) BSA: 1.91 m^2 BMI: 29.05 kg/m^2 HR: 81 bpm BP: 99/61 mmHg Summary Normal left ventricular chamber size. N ormal wall thickness. Entire anterior septum and apex are akinetic, mid-distal anterior and inferior zelaya are akinetic. Remaining segments are mildly hypokinetic (LCX territory and basal inferior wall). LV endocardium is adequately visualized with IV ultrasound enhancing agent. Estimated LVEF by qualitative assessmen t is severely reduced (25-29%) . Mild tricuspid regurgitation. Estimated peak systolic PA pressure is 35- 40 mmHg . The estimated RA pressure by IVC dynami cs 5-10mmHg . No significant pericardial effusion is visualized. Signature Findings Left Ventricle Normal left vent ricular chamber size. Normal wall thickness. Entir e anterior septum and apex are akinetic, mid-di stal anterior and inferior zelaya are akinetic. Re maining segments are mildly hypokinetic (LCX territory and basal inferior wall). LV endocardium i s adequately visualized with IV ultrasound enhan cing agent. Estimated LVEF b y qualitative assessment is severely reduced (25-29%) . Left Atrium LA size is meggan l . Right Ventricle The right ventri cular chamber size and systolic function are lik vonda within normal limits. Right Atrium RA size is meggan l. Atrial Septum Normal interatri al septum by available views. Aortic Valve Mild AoV cusp th ickening. A trace of aorti c regurgitation. Mitral Valve Normal MV struct ure. Mild mitral regu rgitation. Tricuspid Valve Mild tricuspid r egurgitation. Estimated peak s ystolic PA pressure is 35- 40 mmHg . Normal TV struct ure. Pulmonic Valve Normal PV struct ure appears normal by available views. Mild VT. Aorta Aortic root size (SInus of Valsalva diameter) is normal . Pericardium No significant p ericardial effusion is visualized. IVC/SVC/PA/PV/Pleural The estimated RA pressure by IVC dynamics 5-10mmHg . Chambers/Structures Left Atrium LA Volume: 57.78 ml LA Area: 19.06 cm^2 LA Vol. Index: 30 ml/m^2 Left Ventricle LVIDd: 4.59 cm LV Septum Diastolic: 1.2 cm LV PW Diastolic: 0.93 cm LVEDV Cleary's:225.95 ml LVESV Cleary's:182.28 ml LVEF Cleary's: 19.3 % LVEDVI: 118 ml/m^2 LVESVI: 95 ml/m^2 LVOT Diameter: 2.09 cm Doppler/Quantitative Measurements Aortic Valve Peak Velocity: 1.23 m/s Mean Velocity: 0.89 m/s Peak Gradient: 6.02 mmHg Mean Gradient: 3.57 mmHg AV Area (continuity): 2.68 cm^2 AV VTI: 22.09 cm AV DVI: 0.78 LVOT Peak Velocity: 1 m/s Peak Gradient: 4.03 mmHg Mean Velocity: 0.6 m/s Mean Gradient: 1.77 mmHg LVOT Diameter: 2.09 cm LVOT VTI: 17.24 cm LVOT Area: 3.43 cm^2 LVOT SV:59.12 ml LVOT CO: 4.79 l/min LVOT CI: 2.51 l/min/m^2 Tricuspid Valve TR Velocity: 2.6 m/s TR Gradient: 26.95 mmHg Performing Organization Address [facility] Cent[facility]ode Phone Number [facility] ECHO HEARTLAB MKCKESSON CPACS SARS-CoV2/RT-PCR (Asymptomatic ONLY) (01/22/2020 6:07 PM CDT) SARS-COV2/RT-PCR Negative Not Detected, Negative [facility] NON -INTERFACED REFERENCE LABS SARS-COV-2 PERFORMING LAB CPL [facility] N ON-INTERFACED REFERENCE LABS Specimen Other Performing Organization Address [facility] Phone Number [facility] NON-INTERFACED REFERENCE LABS Lipid panel (01/22/2020 2:08 PM CDT) Triglycerides 226 mg/dL [facility] Cholesterol 171 mg/dL [facility] HDL 40 mg/dL [facility] LDL Calculated 86 mg/dL [facility] Specimen Blood Narrative Performed At Triglyceride Reference Range: [facility] Low Risk <150 [id number] High Risk 200-499 Very High Risk>=500 Cholesterol Reference Range: Low Risk <200 [id number] High Risk>240 HDL Cholesterol Reference Range: Low Risk >=60 High Risk <40 LDL Cholesterol Reference Range: Optimal<100 Near [id number] Very High >=190 Ice Cream Freezer Assistant ID - [id number] Performing Organization Address [facility] Centerconv Phone Number [address] [address] CENTER Hemoglobin A1c (01/22/2020 1:23 PM CDT) Hemoglobin A1C 5.6 4.3 - 6.1 % [facility] Specimen Blood Performing Organization Address City/State/Zipcode Phone Number [facility] [address] [place] [address] CENTER after 03/30/2019 Insurance Payer Benefit Plan / Group Subscriber ID Type Phone A ddress MEDICARE MEDICARE A B xxxxxxxxxxx Medicare (Home) [place] [address] Advance Directives For more information, please contact:NIKKY Kenny juanis [address] [place], [place] [phone] Code Status Date Activated Date Inactivated Comments Full Code 01/30/2020 10:16 PM 02/28/2020 5:18 PM This code status was determined by: Patient Full Code 01/23/2020 10:40 AM 01/30/2020 10:16 PM This code status was determined by: Patient Full Code 01/22/2020 2:19 PM 01/23/2020 10:40 AM This code status was determined by: Patient Full Code 01/22/2020 1:11 PM 01/22/2020 2:19 PM This code status was determined by: Patient Full Code 11/09/2016 3:33 AM 11/10/2016 3:42 PM This code status was determined by: Patient
--- OUTSIDE RECORDS SUMMARY | 2020-03-30 21:47 | XMS REPORT | Continuity of Care Document ---
:1935 Author Organization [facility] t Address [address] [place] [address] Care Team Providers Name Role Phone Ann HERNANDEZ Primary Care Physician Galdino CHAPMAN Attending Clinician Unavailable Galdino Chapman MD Attending Clinician Rick Augustine MD Attending Clinician Mayuri HERNANDEZ, [facility] Attending Clinician Inessa HERNANDEZ Attending Clinician Vicente HERNANDEZ, VBraden Attending Clinician Timmy HERNANDEZ Attending Clinician Natalia HERNANDEZ Attending Clinician Naomi Dailey Attending Clinician Unavailable KELLIE HOOD Attending Clinician Unavailable SADIA SWEET Attending Clinician Unavailable Galdino CHAPMAN Admitting Clinician Unavailable KELLIE HOOD Admitting Clinician Unavailable EVA Admitting Clinician Unavailable Payers Payer Name Policy Policy Number Effective Expiration Source Type Date Date [facility] Problems Condition Condition Condition Status Onset Resolution Last Treating Co mments Source Name Details Category Date Date Treatment Clinician Date Acute Acute Disease Active [facility] post-opera post-opera 5-15 Corinne kes - tive pain tive pain 00:00: 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 00 Center On On Disease Active [facility] intra-aort intra-aort 5-15 Corinne kes - ic balloon ic balloon 00:00: Me dical pump pump 00 Center assist assist Shock Shock Disease Active [facility] liver liver 5-15 [facility] - 00:[facility]: Medical 00 Center Fluid Fluid Disease Active [facility] overload overload 5-15 [facility] - 00:[facility]: Medical 00 Center SIRS SIRS Disease Active [facility] (systemic (systemic 5-15 [facility] - inflammato inflammato 00:00: Me dical ry ry 00 Center response response syndrome) syndrome) Chronotrop Chronotrop Disease Active [facility] ic ic 5-15 [facility] - incompeten incompeten 00:00: Me dical ce ce 00 Center S/P S/P Disease Active [facility] placement placement 5-15 [facility] - of cardiac of cardiac 00:00: Me dical pacemaker pacemaker 00 Cent er S/P CABG x S/P CABG x Disease Active [facility] 1 1 5-12 [facility] - 00:[facility] Medical 00 Center CAD CAD Disease Active [facility] (coronary (coronary 5-11 [facility] - artery artery 00:00: Medical disease) disease) 00 Center Thrombosis Thrombosis Disease Active 2016-09 Overview : [place] of renal of renal 0 Added Method i dialysis dialysis 00:00: automatic st arterioven arterioven 00 ally from ous graft ous graft request for surgery [id number] Encounter Encounter Disease Active Enrique stopablo for for 3 [facility] screening screening 00:00: st for for 00 diabetes diabetes mellitus mellitus HTN HTN Disease Active [place] (hypertens (hypertens 3-29 Ga thodi ion) ion) 00:00: st 00 Peritoneal Peritoneal Disease [facility] dialysis dialysis 3-28 Method i catheter catheter 00:00: st infection infection 2016 ESRD ESRD Disease Active [facility] needing needing 2-27 [facility] - dialysis dialysis 00:00: Medica l 00 Center Acute Acute Disease Active [facility] renal renal 2-20 [facility] - failure, failure, 00:00: Medica l unspecifie unspecifie 00 Ce nter d acute d acute renal renal failure failure type type CKD CKD Disease Active [facility] (chronic (chronic 2-20 [facility] - kidney kidney 00:00: Medical disease) disease) 00 Center stage 5, stage 5, GFR less GFR less than 15 than 15 ml/min ml/min HTN HTN Disease Active [facility] (hypertens (hypertens 2-20 [facility] - ion) ion) 00:00: Medical [address] [place] [address] DM DM Disease Active [facility] (diabetes (diabetes 2-20 [place] [facility] - mellitus) mellitus) 00:00: Medi pat [address] [place] [address] ESRD (end ESRD (end Disease Active [facility] St stage stage [facility] - renal renal Medical disease) disease) Corral Gout Gout Disease Active [facility] Vasogenic Vasogenic Disease Active [facility] St shock shock [facility] Acute Acute Disease Active [facility] St systolic systolic 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 [facility] Allergies, Adverse Reactions, Alerts Allergy Allergy Status Severity Reaction(s) Onset Inactive Treating Comm ents Source Name Type Date Date Clinician [place] DA Active [facility] ins 02-27 [facility] 00:[facility]: Health [address] [facility] Propensi Active Rash [place] ins ty to 12-08 [facility] adverse 00:00: st reaction 00 s to drug Penicill Propensi Active Rash [facility] ins ty to 2-20 [facility] - adverse 00:00: Medical reaction 00 Center s Family History Family Member Diagnosis Comments Start Date Stop Date Source Natural father No Known Problem [facility] Natural mother Diabetes [facility] Natural mother Kidney disease [facility] Social History Social Habit Start Date Stop Date Quantity Comments Source History of Cigarette Smoker [facility] tobacco use Sex Assigned At [facility] Alcohol intake 2017-09-09 2017-09-09 Current [facility] thodist 00:00:00 00:00:00 non-drinker of alcohol (finding) Tobacco Comment 2017-07-06 2017-07-06 stopped 40 yrs [place] 00:00:00 00:00:00 ago Smoking Status Start Date Stop Date Source Never smoker [facility] Former smoker 2017-09-09 00:00:00 2017-09-09 00:00:00 [facility] Medications Ordered Filled Start Stop Current Ordering Indication Dosage Frequency Signature Comments Components Source Medication Medication Date Date Medication? Clinician (SIG) Name Name warfarin 2020- Yes 1mg QD Take [address] [facility] [address] (COUMADIN, 02-27-17 tablet (1 [facility] - JANTOVEN) 1 00:00: 23:59 mg total) Medical MG tablet 00 :00 by mouth Center daily. folic 2019- Yes 1{tbl} QD Take [address] acid-multiv 6-13 tablet by P[facility] - itamins 00:00: mouth Medical (NEPHRO-VIT 00 daily. Center E) 0.8 mg Tab tablet ferrous 2019- 2020- No 325mg Take [address] sulfate 325 - 06-12 mg by [facility] - (65 FE) MG 12:07: 00:00 mouth Medic al tablet 37 :00 daily with Center breakfast. sodium 2020-0 2020- No 1{tbl} [id number] Take [address] bicarbonate 6-12 06-12 [id number] tablet by [facility] - 650 MG 12:07: 00:00 3D mouth 3 Medical tablet 36 :00 (three) Center times daily. bumetanide 2019-0 2020- No 1mg Q.5D Take [address] (BUMEX) 1 -08 18-12 by mouth 2 Patt es - MG tablet 12:07: 00:00 (two) Medica l 36 :00 times Center daily. cholecalcif 2019- No 5000U QD Take 5,[address] claire, - 06-12 Units by [facility] - vitamin D3, 12:07: 00:00 mouth Medi pat 5,000 unit 36 :00 daily. Center Tab allopurinol 2019- No 300mg QD Take [address] (ZYLOPRIM) 02-22-12 mg by [facility] - 300 MG 12:07: 00:00 mouth Medical tablet 36 :00 daily. Center ferrous 2019- Yes 325mg Take [address] [facility] sulfate 325 -12 tablet [facility] - (65 FE) MG 00:00: (325 mg Medi pat tablet 00 total) by Center mouth daily with breakfast. DOBUTamine Yes 158.25u Inject [facility] (DOBUTREX) 6-12 g/min 158.25 [facility] - 1,000 00:00: mcg/min Medical mg/250 mL 00 intravenou Cent er (4,000 sly mcg/mL) continuous infusion . epoetin Yes [place] in [id number] Inject [address] daren-epbx 6-12 chronic mL (10,000 L ukes - (RETACRIT) 00:00: kidney Units Medi pat 10,000 00 disease total) Center unit/mL subcutaneo Soln usly 3 injection (three) times a week at bedtime WED/WED/ I. melatonin 5 2019- Yes 5mg Take [address] [facility] [facility] mg Tab 6-12 tablet (5 [facility] - tablet 00:00: mg total) Medica l 00 by mouth Center every night as needed. allopurinoL 2020- Yes 100mg QD Take [address] (ZYLOPRIM) 02-22 tablet [facility] - 100 MG 00:00: 23:59 (100 mg Medical tablet 00 :00 total) by Center mouth daily. amiodarone 2020- Yes 200mg QD Take [address] (PACERONE) 02-22- tablet [facility] - 200 MG 00:00: 23:59 (200 mg Medical tablet 00 :00 total) by Center mouth daily. aspirin 81 2020- Yes 81mg QD Take [address] [facility] MG chewable 02-22 tablet (81 L ukes - tablet 00:00: 23:59 mg total) Medic al 00 :00 by mouth Center daily. atorvastati 2020- Yes 40mg QD Take [address] n (LIPITOR) 02-22 tablet (40 L ukes - 40 MG 00:00: 23:59 mg total) Medica l tablet 00 :00 by mouth Center nightly. insulin 2020- Yes 0U Inject 0-[address] lispro 02-22 Units [facility] - (HUMALOG) 00:00: 23:59 subcutaneo M edical 100 unit/mL 00 :00 usly as Cente r injection needed (High blood sugar). nitroglycer 2020- Yes Put [address] in 02-22 under [facility] - (NITROSTAT) 00:00: 23:59 tongue Med ical 0.4 MG SL 00 :00 every 5min Cent er tablet as needed for chest pain.No more than 3 doses in 15min.Call 911 if pain unrelieved 5min after 1st dose. nystatin 2020- Yes Q.5D Apply [facility] (MYCOSTATIN 02-22 topically Corinne kes - ) 100,000 00:00: 23:59 2 (two) Medi pat unit/gram 00 :00 times Center powder daily. senna-docus 2020- Yes 1{tbl} Q.5D Take [address] ate 02-22 tablet by [facility] - (SENOKOT S) 00:00: 23:59 mouth 2 Me dical 8.6-50 mg 00 :00 (two) Center per tablet times daily. acetaminoph 2020- Yes 650mg Take [address] en 02-22 tablets [facility] - (TYLENOL) 00:00: 23:59 (650 mg Medi pat 325 MG 00 :00 total) by Center tablet mouth every 4 (four) hours as needed for Fever (Rectal temperatur e greater than 101.3 degree fahrenheit ) for up to 360 days. midodrine 2020-0 2020- No 5mg Take 1 [facility] t (PROAMATINE 02-22-12 tablet (5 Corinne kes - ) 5 MG 00:00: 23:59 mg total) Medic al tablet 00 :00 by mouth Center every 8 (eight) hours for 30 days. hydrocortis 2019- 2020- No Q.5D Place [facility] one 02-22-22 rectally 2 [facility] - (ANUSOL-HC) 00:00: 23:59 (two) Medi pat 2.5 % 00 :00 times Center rectal daily for cream 10 days. ondansetron 2019- No 4mg Take [address] [facility] [facility] (ZOFRAN-ODT 02-2219 tablet (4 Corinne kes - ) 4 MG 00:00: 23:59 mg total) Medic al disintegrat 00 :00 by mouth Cent er ing tablet every 6 (six) hours as needed for up to 7 days. warfarin 2019- No 2mg QD Take [address] [facility] (COUMADIN, 02-2217 tablet (2 Patt [facility] - JANTOVEN) 2 00:00: 00:00 mg total) Medical MG tablet 00 :00 by mouth Center daily. polyethylen 2019- No 17g Q.5D Take [address] [facility] e glycol 02-2215 by mouth 2 Luke s - (GLYCOLAX) 00:00: 23:59 (two) Medic al 17 gram 00 :00 times Center packet daily for 3 days. carvedilol 2019- No 25mg Take [address] (COREG) 01-22-12 by mouth 2 [facility] - 12.5 MG 14:11: 00:00 (two) Medical tablet 43 :00 times Center daily with breakfast and dinner. allopurinol 2016-09 Yes 300mg QD Take 300 [place] (ZYLOPRIM) 2-28 mg by [facility]i 300 MG 08:09: mouth st tablet 29 daily. cholecalcif 2016-09 Yes 5000U QD Take 5,000 [facility] claire, 2-28 Units by [facility] vitamin D3, 08:09: mouth st (VITAMIN 29 daily. D3) 1,000 unit tablet isosorbide 2016-09 Yes 20mg Q.5D Take 20 mg [place] dinitrate 2-28 by mouth 2 Meth alexi (ISORDIL) 08:09: (two) st 20 MG 29 times a tablet day. sevelamer 2016-09 Yes 800mg Q.[id number] Take 800 [facility] (RENVELA) 2-28 [id number] mg by Met darreli 800 mg 08:09: 3D mouth 3 st tablet 29 (three) times a day with meals. sodium 2016-09 Yes 648mg Q.[id number] Take 648 [place] bicarbonate 2-28 [id number] mg by Yakelin huodi 648 MG 08:09: 3D mouth 3 st tablet 29 (three) times a day. Vital Signs Vital Name Observation Time Observation Value Comments Source Systolic blood 2020-02-28 14:43:00 107 mm[Hg] [facility] Diastolic blood 2020-02-28 14:43:00 52 mm[Hg] [facility] Heart rate 2020-02-28 14:43:00 80 /min [facility] Body temperature 2020-02-28 14:43:00 36.72 Audrey [facility] Respiratory rate 2020-02-28 14:43:00 16 /min [facility] Oxygen saturation in 2020-02-28 14:43:00 98 /min [facility] Arterial blood by Medical Ce nter Pulse oximetry Body weight Measured 2020-02-28 07:59:00 68.5 kg [facility] BMI 2020-02-28 07:59:00 24.37 kg/m2 [facility] Body height 2020-02-07 19:00:00 167.6 cm [facility] Procedures Procedure Date / Time Performing Clinician Source Performed RHYTHM STRIP - SCAN 2020-03-01 11:05:15 Provider, Default [facility] RHYTHM STRIP - SCAN 2020-03-01 11:05:13 Provider, Default [facility] RHYTHM STRIP - SCAN 2020-03-01 11:05:11 Provider, Default [facility] REPORT OF PROCEDURE - 2020-03-01 11:05:10 Provider, Default [facility] ENDOSCOPY SCAN [facility] ARRYTHMIA IMPLANT REPORT - 2020-03-01 11:05:01 Provider, Default [facility] VASCULAR DIAGRAM -SCAN 2020-03-01 11:04:58 Provider, Default [facility] CARDIAC CATH REPORT - SCAN 2020-03-01 11:04:54 Provider, Default [facility] POCT-GLUCOSE METER 2020-02-28 11:26:00 Romina Zhang V. [facility] POCT-GLUCOSE METER 2020-02-28 07:12:00 Romina Zhang V. [facility] CBC (HEMOGRAM ONLY) 2020-02-28 04:29:00 Kenneth Phan [facility] PROTHROMBIN TIME/INR 2020-02-28 04:29:00 Malu [facility] BASIC METABOLIC PANEL (7) 2020-02-28 04:29:00 Romina Zhang V. [facility] POCT-GLUCOSE METER 2020-02-27 21:03:00 Romina Zhang V. [facility] POCT-GLUCOSE METER 2020-02-27 16:58:00 Romina Zhang V. [facility] LIMITED 2D ECHOCARDIOGRAM 2020-02-27 15:35:44 Lan Chapman I [facility] POCT-GLUCOSE METER 2020-02-27 12:15:00 Romina Zhang V. [facility] POCT-GLUCOSE METER 2020-02-27 07:10:00 Romina Zhang V. [facility] PROTHROMBIN TIME/INR 2020-02-27 06:07:00 Rashad Toribio [facility] CBC (HEMOGRAM ONLY) 2020-02-27 04:56:00 Kenneth Phan [facility] BASIC METABOLIC PANEL (7) 2020-02-27 04:56:00 Romina Zhang V. [facility] POCT-GLUCOSE METER 2020-02-26 21:08:00 Romina Zhang V. [facility] HEMODIALYSIS INPATIENT 2020-02-26 20:30:00 Jack Huang [facility] POCT-GLUCOSE METER 2020-02-26 11:50:00 Romina Zhang V. [facility] POCT-GLUCOSE METER 2020-02-26 08:03:00 Romina Zhang V. [facility] POCT-GLUCOSE METER 2020-02-26 07:21:00 [facility] (HEMO[facility] ONLY) 2020-02-26 03:35:00 Kenneth Phan [facility] PROTHROMBIN TIME/INR 2020-02-26 03:35:00 Rashad Toribio [facility] BASIC METABOLIC PANEL (7) 2020-02-26 03:35:00 Romina Zhang V. [facility] ARTERIAL DOPPLER LEG, LEFT 2020-02-25 23:32:00 Kang Frank [facility] ARTERIAL (RAYMOND'S W/ 2020-02-25 23:10:00 [facility] POCT-GLUCOSE METER 2020-02-25 21:04:00 Romina Zhang V. [facility] POCT-GLUCOSE METER 2020-02-25 16:50:00 Neno Zhangnanuet Chaim [facility] POCT-GLUCOSE METER 2020-02-25 11:49:00 Neno Zhangnanuet Chaim [facility] POCT-GLUCOSE METER 2020-02-25 08:03:00 [facility] CBC (HEMOGRAM ONLY) 2020-02-25 05:30:00 Kenneth Phan [facility] PROTHROMBIN TIME/INR 2020-02-25 05:30:00 Rashad Toribio [facility] BASIC METABOLIC PANEL (7) 2020-02-25 05:30:00 Romina Zhang V. [facility] POCT-GLUCOSE METER 2020-02-24 21:10:00 Romina Zhang V. [facility] POCT-GLUCOSE METER 2020-02-24 16:48:00 Romina Zhang V. [facility] POCT-GLUCOSE METER 2020-02-24 12:17:00 Neno Zhangnanuet Chaim [facility] POCT-GLUCOSE METER 2020-02-24 07:34:00 Romina Zhang V. [facility] POCT-GLUCOSE METER 2020-02-24 07:12:00 Romina Zhang V. [facility] CBC (HEMOGRAM ONLY) 2020-02-24 03:59:00 Kenneth Phan [facility] PROTHROMBIN TIME/INR 2020-02-24 03:59:00 Rashad Toribio [facility] BASIC METABOLIC PANEL (7) 2020-02-24 03:59:00 Romina Zhang V. [facility] POCT-GLUCOSE METER 2020-02-23 21:20:00 Romina Zhang V. [facility] POCT-GLUCOSE METER 2020-02-23 16:36:00 Romina Zhang V. [facility] HEMODIALYSIS INPATIENT 2020-02-23 10:49:47 Jack Huang [facility] CBC (HEMOGRAM ONLY) 2020-02-23 04:48:00 Kenneth Phan [facility] PROTHROMBIN TIME/INR 2020-02-23 04:48:00 Rashad Toribio [facility] BASIC METABOLIC PANEL (7) 2020-02-23 04:48:00 Romina Zhang V. [facility] POCT-GLUCOSE METER 2020-02-22 21:05:00 Romina Zhang V. [facility] POCT-GLUCOSE METER 2020-02-22 15:46:00 Romina Zhang V. [facility] POCT-GLUCOSE METER 2020-02-22 12:10:00 Romina Zhang V. [facility] POCT-GLUCOSE METER 2020-02-22 07:30:00 Romina Zhang V. [facility] HEPATITIS B SURFACE 2020-02-22 04:56:00 Jack Huang [facility] CBC (HEMOGRAM ONLY) 2020-02-22 04:56:00 [facility]R 2020-02-22 04:56:00 Rashad Toribio [facility] BASIC METABOLIC PANEL (7) 2020-02-22 04:56:00 Romina Zhang V. [facility] POCT-GLUCOSE METER 2020-02-21 21:13:00 Romina Zhang V. [facility] POCT-GLUCOSE METER 2020-02-21 16:59:00 Romina Zhang V. [facility] HEPATITIS B SURFACE 2020-02-21 09:15:00 Jack Huang [facility] HEMODIALYSIS INPATIENT 2020-02-21 07:38:43 Jack Huang [facility] POCT-GLUCOSE METER 2020-02-21 07:24:00 Neno Zhangnanuet Chaim [facility] CBC (HEMOGRAM ONLY) 2020-02-21 05:15:00 Kenneth Phan [facility] PROTHROMBIN TIME/INR 2020-02-21 05:14:00 Rashad Toribio [facility] BASIC METABOLIC PANEL (7) 2020-02-21 05:14:00 Romina Zhang V. [facility] POCT-GLUCOSE METER 2020-02-20 21:05:00 Neno Zhangnanuet Chaim [facility] POCT-GLUCOSE METER 2020-02-20 16:33:00 Romina Zhang V. [facility] POCT-GLUCOSE METER 2020-02-20 11:15:00 Romina Zhang V. [facility] 2D ECHO W/ DOPPLER 2020-02-20 10:00:38 Pete Parson [facility] (CW/PW/COLOR) [facility] POCT-GLUCOSE METER 2020-02-20 07:59:00 Romina Zhang V. [facility] POCT-GLUCOSE METER 2020-02-20 07:27:00 Neno Zhangnanuet Chaim [facility] CBC (HEMOGRAM ONLY) 2020-02-20 04:34:00 Kenneth Phan [facility] PROTHROMBIN TIME/INR 2020-02-20 04:34:00 Rashad Toribio [facility] BASIC METABOLIC PANEL (7) 2020-02-20 04:34:00 Romina Zhang AjayBraden [facility] POCT-GLUCOSE METER 2020-02-19 21:08:00 Neno Zhangnanuet AjayBraden [facility] POCT-GLUCOSE METER 2020-02-19 16:24:00 Neno Zhangnanuet AjayBraden [facility] POCT-GLUCOSE METER 2020-02-19 09:58:00 Neno Zhangnanuet AjayBraden [facility] HEMODIALYSIS INPATIENT 2020-02-19 09:05:42 Jamaal Estrada [facility] POCT-GLUCOSE METER 2020-02-19 07:31:00 [facility] 2020-02-19 04:49:00 [facility] PROTHROMBIN TIME/INR 2020-02-19 04:49:00 Rashad Toribio [facility] BASIC METABOLIC PANEL (7) 2020-02-19 04:49:00 Vicente Nenonanuet AjayBraden [facility] POCT-GLUCOSE METER 2020-02-18 20:46:00 Vicente [facility] AjayBraden [facility] POCT-GLUCOSE METER 2020-02-18 16:56:00 Vicente Nenonanuet AjayBraden [facility] POCT-GLUCOSE METER 2020-02-18 11:30:00 Neno Zhangnanuet AjayBraden [facility] POCT-GLUCOSE METER 2020-02-18 07:20:00 [facility] CBC (HEMOGRAM ONLY) 2020-02-18 04:47:00 Kenneth Phan [facility] PROTHROMBIN TIME/INR 2020-02-18 04:46:00 Rashad Toribio [facility] BASIC METABOLIC PANEL (7) 2020-02-18 04:46:00 [facility] POCT-GLUCOSE METER 2020-02-17 21:04:00 Neno Zhangnanuet Chaim [facility] POCT-GLUCOSE METER 2020-02-17 16:52:00 Romina Zhang V. [facility] POCT-GLUCOSE METER 2020-02-17 11:58:00 Romnia Zhang V. [facility] POCT-GLUCOSE METER 2020-02-17 07:54:00 Romina Zhang V. [facility] CBC (HEMOGRAM ONLY) 2020-02-17 04:40:00 Kenneth Phan [facility] PROTHROMBIN TIME/INR 2020-02-17 04:40:00 Malu [facility] BASIC METABOLIC PANEL (7) 2020-02-17 04:40:00 Romina Zhang V. [facility] POCT-GLUCOSE METER 2020-02-16 20:54:00 Romina Zhang V. [facility] POCT-GLUCOSE METER 2020-02-16 17:04:00 Romina Zhnag V. [facility] HEMODIALYSIS INPATIENT 2020-02-16 12:10:00 [facility] HEMODIALYSIS INPATIENT 2020-02-16 11:24:47 Jack Huang [facility] CBC (HEMOGRAM ONLY) 2020-02-16 05:16:00 Kenneth Phan [facility] PROTHROMBIN TIME/INR 2020-02-16 05:16:00 Malu [facility] BASIC METABOLIC PANEL (7) 2020-02-16 05:16:00 Romina Zhang V. [facility] POCT-GLUCOSE METER 2020-02-15 21:15:00 Romina Zhang V. [facility] POCT-GLUCOSE METER 2020-02-15 15:53:00 Romina Zhang V. [facility] POCT-GLUCOSE METER 2020-02-15 11:23:00 Romina Zhang V. [facility] POCT-GLUCOSE METER 2020-02-15 07:33:00 Neno Zhangnanuet Chaim [facility] [facility] CBC (HEMOGRAM ONLY) 2020-02-15 04:25:00 Kenneth Phan [facility] PROTHROMBIN TIME/INR 2020-02-15 04:25:00 Rashad Toribio [facility] BASIC METABOLIC PANEL (7) 2020-02-15 04:25:00 Romina Zhang V. [facility] POCT-GLUCOSE METER 2020-02-14 21:09:00 Romina Zhang V. [facility] POCT-GLUCOSE METER 2020-02-14 16:46:00 Romina Zhang V. [facility] RHYTHM STRIP - SCAN 2020-02-14 13:50:47 Oneal Lombardi [facility] POCT-GLUCOSE METER 2020-02-14 08:04:00 Romina Zhang V. [facility] POCT-GLUCOSE METER 2020-02-14 07:44:00 [facility] ([facility] ONLY[facility] 2020-02-14 05:59:00 Kenneth Phan [facility] PROTHROMBIN TIME/INR 2020-02-14 05:59:00 Malu [facility] BASIC METABOLIC PANEL (7) 2020-02-14 05:59:00 Neno Zhangnanuet AjayBraden [facility] POCT-GLUCOSE METER 2020-02-13 21:07:00 Neno Zhangnanuet AjayBraden [facility] POCT-GLUCOSE METER 2020-02-13 16:45:00 Romina Zhang V. [facility] POCT-GLUCOSE METER 2020-02-13 11:50:00 Neno Zhangnanuet AjayBraden [facility] POCT-GLUCOSE METER 2020-02-13 07:34:00 Neno Zhangnanuet AjayBraden [facility] CBC (HEMOGRAM ONLY) 2020-02-13 04:46:00 Sylvester Kenneth [facility] PROTHROMBIN TIME/INR 2020-02-13 04:46:00 Malu [facility] BASIC METABOLIC PANEL (7) 2020-02-13 04:46:00 Romina Zhang V. [facility] POCT-GLUCOSE METER 2020-02-12 21:21:00 Romina Zhang V. [facility] POCT-GLUCOSE METER 2020-02-12 17:17:00 Romina Zhang V. [facility] POCT-GLUCOSE METER 2020-02-12 12:19:00 Romina Zhang V. [facility] POCT-GLUCOSE METER 2020-02-12 07:51:00 Romina Zhang V. [facility] HEMODIALYSIS INPATIENT 2020-02-12 07:19:19 Jack Huang [facility] CBC (HEMOGRAM ONLY) 2020-02-12 04:30:00 Kenneth Phan [facility] PROTHROMBIN TIME/INR 2020-02-12 04:30:00 Rashad Toribio [facility] POCT-GLUCOSE METER 2020-02-11 20:57:00 Neno Zhangnanuet Chaim [facility] TRANSFUSION SERVICE REPORT 2020-02-11 17:50:27 Provider, Default [facility] POCT-GLUCOSE METER 2020-02-11 16:56:00 Romina Zhang V. [facility] POCT-GLUCOSE METER 2020-02-11 12:16:00 Romina Zhang V. [facility] POCT-GLUCOSE METER 2020-02-11 07:00:00 Romina Zhang V. [facility] POCT-GLUCOSE METER 2020-02-11 03:40:00 Romina Zhang V. [facility] CBC (HEMOGRAM ONLY) 2020-02-11 03:32:00 Kenneth Phan [facility] PROTHROMBIN TIME/INR 2020-02-11 03:32:00 Rashad Toribio [facility] PREPARE PLASMA 2020-02-10 23:54:00 Romina Zhang V. [facility] TRANSFUSION SERVICE REPORT 2020-02-10 17:50:38 Provider, Default [facility] POCT-GLUCOSE METER 2020-02-10 16:38:00 Romina Zhang V. [facility] POCT-GLUCOSE METER 2020-02-10 11:48:00 Romina Zhang V. [facility] HEMODIALYSIS INPATIENT 2020-02-10 08:51:38 Jack Huang [facility] POCT-GLUCOSE METER 2020-02-10 06:59:00 Romina Zhang V. [facility] CBC (HEMOGRAM ONLY) 2020-02-10 04:08:00 Kenneth Phan [facility] PROTHROMBIN TIME/INR 2020-02-10 04:08:00 Rashad Toribio [facility] BASIC METABOLIC PANEL (7) 2020-02-10 04:08:00 Romina Zhang V. [facility] POCT-GLUCOSE METER 2020-02-09 21:04:00 Romina Zhang V. [facility] POCT-GLUCOSE METER 2020-02-09 17:39:00 [facility] XR CHEST 1 VIEW 2020-02-09 16:27:00 Antolin Guevara [facility] - PORTABLE/BEDSIDE Medical [facility] IR CV ACCESS FLUORO 2020-02-09 16:08:00 Lan Chapman [facility] HEMODIALYSIS INPATIENT 2020-02-09 12:36:00 Jack Huang [facility] PROTHROMBIN TIME/INR 2020-02-09 12:21:00 Romina Zhang V. [facility] POCT-GLUCOSE METER 2020-02-09 11:43:00 Romina Zhang V. [facility] TRANSFUSE PLASMA 2020-02-09 10:49:55 Romina Zhang V. [facility] TYPE AND SCREEN, AUTOMATED 2020-02-09 04:52:00 Romina Zhang V. [facility] CBC (HEMOGRAM ONLY) 2020-02-09 04:51:00 Kenneth Phan [facility] PROTHROMBIN TIME/INR 2020-02-09 04:51:00 Rashad Toribio [facility] POCT-GLUCOSE METER 2020-02-08 21:12:00 Romina Zhang V. [facility] HEMODIALYSIS INPATIENT 2020-02-08 18:34:40 Jack Huang [facility] POCT-GLUCOSE METER 2020-02-08 18:24:00 Romina Zhang V. [facility] US CHEST 2020-02-08 13:14:00 Romina Zhang V. [facility] POCT-GLUCOSE METER 2020-02-08 11:16:00 Romina Zhang V. [facility] POCT-GLUCOSE METER 2020-02-08 07:41:00 Romina Zhang V. [facility] POCT-BLOOD GASES, ARTERIAL 2020-02-08 04:28:00 Romina Zhang V. [facility] POCT-SODIUM 2020-02-08 04:28:00 Romina Zhang V. [facility] POCT-POTASSIUM 2020-02-08 04:28:00 Romina Zhang V. [facility] POCT-HEMOGLOBIN 2020-02-08 04:28:00 Romina Zhang V. [facility] POCT-HEMATOCRIT 2020-02-08 04:28:00 Romina Zhang V. [facility] POCT-CALCIUM IONIZED 2020-02-08 04:28:00 Romina Zhang V. [facility] POCT-GLUCOSE 2020-02-08 04:28:00 Romina Zhang V. [facility] ECG 12-LEAD 2020-02-08 04:25:23 Unknown, Hl7 [facility] B-TYPE NATRIURETIC FACTOR 2020-02-08 04:24:00 Romina Zhang V. [facility] (BNP) [facility] CBC (HEMOGRAM ONLY) 2020-02-08 04:22:00 Kenneth Phan [facility] PROTHROMBIN TIME/INR 2020-02-08 04:22:00 Rashad Toribio [facility] MAGNESIUM 2020-02-08 04:22:00 Romina Zhang V. [facility] PHOSPHORUS 2020-02-08 04:22:00 Romina Zhang V. [facility] TROPONIN I 2020-02-08 04:22:00 Romina Zhang V. [facility] COMPREHENSIVE METABOLIC 2020-02-08 04:22:00 Romina Zhang V. [facility] XR CHEST 1 VIEW 2020-02-08 04:09:[address] [facility] PORTABLE/BEDSIDE [facility] POCT-GLUCOSE METER 2020-02-07 20:49:00 Romina Zhang V. [facility] POCT-GLUCOSE METER 2020-02-07 16:29:00 Romina Zhang V. [facility] HEMODIALYSIS INPATIENT 2020-02-07 15:15:50 Jack Huang [facility] POCT-GLUCOSE METER 2020-02-07 11:22:00 Romina Zhang V. [facility] POCT-GLUCOSE METER 2020-02-07 07:28:00 Romina Zhang V. [facility] CBC (HEMOGRAM ONLY) 2020-02-07 04:24:00 Kenneth Phan [facility] PROTHROMBIN TIME/INR 2020-02-07 04:24:00 Mal[facility] BASIC METABOLIC PANEL (7) 2020-02-07 04:24:00 Joe [facility] MAGNESIUM 2020-02-07 04:24:00 Joe [facility] POCT-GLUCOSE METER 2020-02-06 21:48:00 Romina Zhang V. [facility] RESPIRATORY PANEL [facility] 2020-02-06 20:35:00 Winifred Fine [facility] RAPID INFLUENZA A&B SCREEN 2020-02-06 20:35:00 Winifred Fine [facility] HEMODIALYSIS INPATIENT 2020-02-06 17:00:00 Jack Huang [facility] POCT-GLUCOSE METER 2020-02-06 16:49:00 Romina Zhang V. [facility] POCT-GLUCOSE METER 2020-02-06 11:38:00 Romina Zhang V. [facility] XR CHEST 1 VIEW 2020-02-06 11:15:00 Rashad Singh [facility] - PORTABLE/BEDSIDE [facility] LIMITED 2D ECHOCARDIOGRAM 2020-02-06 10:09:00 Rashad Singh [facility] TROPONIN I 2020-02-06 08:47:00 Winifred Fine [facility] BASIC METABOLIC PANEL (7) 2020-02-06 08:47:00 Lan [facility] POCT-GLUCOSE METER 2020-02-06 07:52:00 Romina Zhang V. [facility] CBC (HEMOGRAM ONLY) 2020-02-06 04:46:00 Kenneth Phan [facility] PROTHROMBIN TIME/INR 2020-02-06 04:46:00 Rashad Toribio [facility] TROPONIN I 2020-02-06 04:46:00 Winifred Fine [facility] BASIC METABOLIC PANEL (7) 2020-02-06 04:46:00 Winifred Fine [facility] ECG 12-LEAD 2020-02-06 02:15:07 Unknown, Hl7 [facility] TROPONIN I 2020-02-06 00:02:00 Winifred Fine [facility] B-TYPE NATRIURETIC FACTOR 2020-02-05 22:17:00 Winifred Fine [facility] (BNP) [facility] COMPREHENSIVE METABOLIC 2020-02-05 22:17:00 Winifred Fine [facility] CBC W/PLT COUNT & AUTO 2020-02-05 22:17:00 Wniifred Fine [facility] ULTRAFILTRATION HD CRRT 2020-02-05 21:31:03 Jamaal Estrada I [facility] POCT-GLUCOSE METER 2020-02-05 21:24:00 Romina Zhang V. [facility] XR CHEST 1 VIEW 2020-02-05 21:12:00 Winifred Fine [facility] - PORTABLE/BEDSIDE [facility] TROPONIN I 2020-02-05 20:18:00 Lyle Coe [facility] ECG 12-LEAD 2020-02-05 20:13:57 Unknown, 7 [facility] ECG 12-LEAD 2020-02-05 20:13:02 Unknown, 7 [facility] ECG 12-LEAD 2020-02-05 20:07:26 Unknown, 7 [facility] ECG 12-LEAD 2020-02-05 20:06:07 Unknown, [address] ECG 12-LEAD 2020-02-05 20:04:15 Unknown, [address] POCT-GLUCOSE METER 2020-02-05 16:15:00 Romina Zhang V. [facility] POCT-GLUCOSE METER 2020-02-05 11:21:00 Romina Zhang V. [facility] POCT-GLUCOSE METER 2020-02-05 07:19:00 Romina Zhang V. [facility] CBC (HEMOGRAM ONLY) 2020-02-05 02:27:00 Kenneth Phan [facility] PROTHROMBIN TIME/INR 2020-02-05 02:27:00 Rashad Toribio [facility] BASIC METABOLIC PANEL (7) 2020-02-05 02:27:00 Romina Zhang V. [facility] MAGNESIUM 2020-02-05 02:27:00 Romina Zhang V. [facility] POCT-GLUCOSE METER 2020-02-04 22:02:00 Romina Zhang V. [facility] ULTRAFILTRATION HD CRRT 2020-02-04 21:55:09 Jamaal Estrada CH I [facility] XR CHEST 1 VIEW 2020-02-04 14:48:00 Mel Valle [facility] PORTABLE/BEDSIDE [facility] POCT-GLUCOSE METER 2020-02-04 13:21:00 Romina Zhang V. [facility] POCT-GLUCOSE METER 2020-02-04 09:00:00 Romina Zhang V. [facility] CBC (HEMOGRAM ONLY) 2020-02-04 04:34:00 Kenneth Phan [facility] PROTHROMBIN TIME/INR 2020-02-04 04:34:00 Rashad Toribio [facility] IRON, TIBC, % SAT. 2020-02-04 04:34:00 Jamaal Estrada [facility] (WITHOUT FERRITIN) [facility] 2020-02-04 04:34:00 Jamaal Estrada [facility] POCT-GLUCOSE METER 2020-02-03 17:36:00 Romina Zhang V. [facility] POCT-GLUCOSE METER 2020-02-03 12:27:00 Neno Zhangnanuet Chaim [facility] POCT-GLUCOSE METER 2020-02-03 07:15:00 [facility] (HE[facility] ONLY) 2020-02-03 04:51:00 Kenneth Phan [facility] PROTHROMBIN TIME/INR 2020-02-03 04:51:00 Rashad Toribio [facility] POCT-GLUCOSE METER 2020-02-02 21:19:00 Romina Zhang V. [facility] POCT-GLUCOSE METER 2020-02-02 17:51:00 [facility]SF[facility] SERV[facility] REPORT 2020-02-02 17:50:32 Oneal Lombardi [facility] HEMODIALYSIS INPATIENT 2020-02-02 09:37:42 Jack Huang [facility] POCT-GLUCOSE METER 2020-02-02 07:54:00 [facility] CBC (HEMOGRAM ONLY) 2020-02-02 04:35:00 Kenneth Phan [facility] PROTHROMBIN TIME/INR 2020-02-02 04:35:00 Rashad Toribio [facility] BASIC METABOLIC PANEL (7) 2020-02-02 04:35:00 Jack Huang [facility] PREPARE LEUKO-REDUCED RBC 2020-02-01 23:54:00 Isabelle Feldman [facility] POCT-GLUCOSE METER 2020-02-01 21:19:00 Romina Zhang V. [facility] TRANSFUSION SERVICE REPORT 2020-02-01 17:50:49 Provider, Oneal [facility] - - SCAN [facility] POCT-GLUCOSE METER 2020-02-01 13:16:00 Romina Zhang V. [facility] POCT-GLUCOSE METER 2020-02-01 09:41:00 Romina Zhang V. [facility] CBC (HEMOGRAM ONLY) 2020-02-01 05:01:00 Kenneth Phan [facility] PROTHROMBIN TIME/INR 2020-02-01 05:01:00 Rashad Toribio [facility] PROTHROMBIN TIME/INR 2020-01-31 20:19:00 Lisa Seay [facility] POCT-GLUCOSE METER 2020-01-31 16:30:00 [facility] HEMOGLOBIN AND HEMATOCRIT 2020-01-31 13:25:00 Steffen [place] [facility] HEMODIALYSIS INPATIENT 2020-01-31 12:55:44 Jack Huang [facility] POCT-GLUCOSE METER 2020-01-31 11:32:00 [facility] XR CHEST 1 VIEW 2020-01-31 08:18:00 Isabelle Feldman [facility] - PORTABLE/BEDSIDE [facility] POCT-GLUCOSE METER 2020-01-31 07:17:00 [facility] TRANSFUSE LEUKO-REDUCED 2020-01-31 06:47:04 Isabelle Feldman [facility] - RED BLOOD CELLS [facility] BLOOD GAS, ARTERIAL 2020-01-31 03:27:00 Kenneth Phan [facility] CBC (HEMOGRAM ONLY) 2020-01-31 03:22:00 Kenneth Phan [facility] CALCIUM, IONIZED 2020-01-31 03:12:00 Bella [facility] PHOSPHORUS 2020-01-31 03:12:00 Bella [facility] MAGNESIUM 2020-01-31 03:12:00 Bella [facility] BASIC METABOLIC PANEL (7) 2020-01-31 03:12:00 Sylvester [facility] OXYGEN SATURATION, 2020-01-31 03:12:00 Sylvester [facility] TYPE AND SCREEN, AUTOMATED 2020-01-31 02:18:00 Isabelle Feldman [facility] OXYGEN SATURATION, 2020-01-30 23:06:00 Isabelle Feldman [facility] LACTIC ACID, ARTERIAL 2020-01-30 23:06:00 Isabelle Feldman [facility] CBC W/PLT COUNT & AUTO 2020-01-30 23:06:00 Isabelle Feldman [facility] DIFFERENTIAL [facility] XR CHEST 1 VIEW 2020-01-30 22:32:00 Stew Fisher [facility] PORTABLE/BEDSIDE [facility] Center POCT-GLUCOSE METER 2020-01-30 22:07:00 Inessa [facility] CALCIUM, IONIZED 2020-01-30 20:59:00 Bella [facility] PHOSPHORUS 2020-01-30 20:59:00 Bella [facility] MAGNESIUM 2020-01-30 20:59:00 Bella [facility] BASIC METABOLIC PANEL (7) 2020-01-30 20:59:00 Sylvester [facility] POCT-GLUCOSE METER 2020-01-30 17:24:00 Inessa [facility] ARRYTHMIA IMPLANT REPORT - 2020-01-30 15:50:07 Provider, Default [facility] 2D ECHO W/ DOPPLER 2020-01-30 13:49:00 CruzitoSteffen medellin [facility] (CW/PW/COLOR) [facility] CALCIUM, IONIZED 2020-01-30 12:20[facility] 2020-01-30 12:20[facility]00 [facility] 2020-01-30 12:20:00 [facility] BASIC METABOLIC PANEL (7) 2020-01-30 12:20:00 Sylvester [facility] POCT-GLUCOSE METER 2020-01-30 12:08:00 [facility] POCT-GLUCOSE METER 2020-01-30 07:35:00 [facility] OXYGEN SATURATION, 2020-01-30 06:11:00 Bella [facility] CBC (HEMOGRAM ONLY) 2020-01-30 02:33:00 Sylvester [facility] PHOSPHORUS 2020-01-30 02:33:00 [facility] MAGNESIUM 2020-01-30 02:33:00 [facility] BASIC METABOLIC PANEL (7) 2020-01-30 02:33:00 Kenneth Phan [facility] BLOOD GAS, ARTERIAL 2020-01-30 02:33:00 [facility], 2020-01-30 02:33[facility]AT[facility] W/RATIO 2020-01-30 02:33:00 Stew Fisher [facility] CALCIUM, IONIZED 2020-01-30 02:33:00 Deborah Gill [facility] POCT-GLUCOSE METER 2020-01-29 22:55:00 [facility] CALCIUM, IONIZED 2020-01-29 20:52:00 Bella [facility] S t [facility] PHOSPHORUS 2020-01-29 20:52:00 Bella [facility] MAGNESIUM 2020-01-29 20:52:00 Bella [facility] BASIC METABOLIC PANEL (7) 2020-01-29 20:52:00 Kenneth Phan [facility] POCT-GLUCOSE METER 2020-01-29 18:01:00 [facility] POCT-GLUCOSE METER 2020-01-29 17:41:00 [facility] POTASSIUM 2020-01-29 15:02:00 Jack Huang [facility] POCT-GLUCOSE METER 2020-01-29 11:46:00 [facility] CALCIUM, IONIZED 2020-01-29 11:42:00 Bella [facility] PHOSPHORUS 2020-01-29 11:42:00 Bella [facility] MAGNESIUM 2020-01-29 11:42:00 Bella [facility] BASIC METABOLIC PANEL (7) 2020-01-29 11:42:00 Kenneth Phan [facility] POCT-GLUCOSE METER 2020-01-29 09:51:00 [facility] OXYGEN SATURATION, 2020-01-29 09:48:[address] [facility] POTASSIUM 2020-01-29 08:10:00 Jack Huang [facility] POCT-GLUCOSE METER 2020-01-29 08:04:00 [facility] OXYGEN SATURATION, 2020-01-29 03:22:00 Sylvester [facility] CBC (HEMOGRAM ONLY) 2020-01-29 03:20:00 [facility] CALCIUM, IONIZED 2020-01-29 03:20:00 Bella [facility] PHOSPHORUS 2020-01-29 03:20:00 Bella [facility] MAGNESIUM 2020-01-29 03:20:00 Bella [facility] HEPATIC FUNCTION PANEL 2020-01-29 03:20:00 Bella [facility] BASIC METABOLIC PANEL (7) 2020-01-29 03:20:00 Sylvester [facility] BLOOD GAS, ARTERIAL 2020-01-29 03:20:00 Sylvester [facility] BUN AND CREATININE W/RATIO 2020-01-29 03:20:00 Stew Fisher [facility] POCT-GLUCOSE METER 2020-01-28 23:34:00 Mayuri [facility] CALCIUM, IONIZED 2020-01-28 20:23:00 Bella [facility] PHOSPHORUS 2020-01-28 20:23:00 Bella [facility] MAGNESIUM 2020-01-28 20:23:00 Bella [facility] BASIC METABOLIC PANEL (7) 2020-01-28 20:23:00 Sylvester [facility] BLOOD GAS, ARTERIAL 2020-01-28 20:23:00 [facility] LACTIC ACID, ARTERIAL 2020-01-28 20:23:00 Deborah Gill [facility] POCT-GLUCOSE METER 2020-01-28 17:36:00 Betsy Messina [facility] POCT-GLUCOSE METER 2020-01-28 17:18:00 Betsy Messina [facility] OXYGEN SATURATION, 2020-01-28 14:18:00 Bella [facility] CALCIUM, IONIZED 2020-01-28 12:42:00 Bella [facility] PHOSPHORUS 2020-01-28 12:42:00 Bella [facility] MAGNESIUM 2020-01-28 12:42:00 Bella [facility] BASIC METABOLIC PANEL (7) 2020-01-28 12:42:00 [facility] POCT-GLUCOSE METER 2020-01-28 11:08:00 Mayuri [facility] POTASSIUM 2020-01-28 08:37:00 Jack Huang [facility] PH, ARTERIAL 2020-01-28 08:37:00 [facility] POCT-GLUCOSE METER 2020-01-28 08:34:00 Mayuri [facility] POCT-GLUCOSE METER 2020-01-28 07:42:00 Mayuri [facility] OXYGEN SATURATION, 2020-01-28 02:42:00 Sylvester [facility] BLOOD GAS, ARTERIAL 2020-01-28 02:40:00 [facility] 2020-01-28 02:38:00 [facility] CBC (HEMOGRAM ONLY) 2020-01-28 02:38:00 [facility]CI[facility], IONIZED 2020-01-28 02:38:00 Bella [facility] PHOSPHORUS 2020-01-28 02:38:00 Bella [facility] MAGNESIUM 2020-01-28 02:38:00 Bella [facility] HEPATIC FUNCTION PANEL 2020-01-28 02:38:00 [facility] BASIC METABOLIC PANEL (7) 2020-01-28 02:38:00 Sylvester [facility] LACTIC ACID, ARTERIAL 2020-01-28 02:38:00 Bridget, [facility] BUN AND CREATININE W/RATIO 2020-01-28 02:38:00 Stew Fisher [facility] XR CHEST 1 VIEW 2020-01-28 01:05:[address] [facility] PORTABLE/BEDSIDE [facility] POCT-GLUCOSE METER 2020-01-27 22:58:00 Betsy Messina [facility] OXYGEN SATURATION, 2020-01-27 20:41:00 Deborah Gill [facility] BLOOD GAS, ARTERIAL 2020-01-27 20:35:00 Bridget [facility] CALCIUM, IONIZED 2020-01-27 20:34:00 Bella [facility] PHOSPHORUS 2020-01-27 20:34:00 Bella [facility] MAGNESIUM 2020-01-27 20:34:00 Bella [facility] BASIC METABOLIC PANEL (7) 2020-01-27 20:34:00 Kenneth Phan [facility] LACTIC ACID, ARTERIAL 2020-01-27 20:34:00 Bridget [facility] TRANSFUSION SERVICE REPORT 2020-01-27 17:52:41 ProviderOneal [facility] - SCAN [facility] POCT-GLUCOSE METER 2020-01-27 15:29:00 Betsy Messina [facility] POTASSIUM 2020-01-27 15:26:00 Jack Huang [facility] PH, ARTERIAL 2020-01-27 15:26:00 Kenneth Phan [facility] 2D ECHO W/ DOPPLER 2020-01-27 11:44:33 Deanne Contreras [facility] (CW/PW/COLOR) [facility] POCT-GLUCOSE METER 2020-01-27 11:11:00 Betsy Messina [facility] CALCIUM, IONIZED 2020-01-27 11:00:00 Lilly Blanco [facility] PHOSPHORUS 2020-01-27 11:00:00 Lilly Blanco [facility] MAGNESIUM 2020-01-27 11:00:00 Lilly Blanco [facility] BASIC METABOLIC PANEL (7) 2020-01-27 11:00:00 [facility] POCT-GLUCOSE METER 2020-01-27 07:42:00 Betsy Messina [facility] [facility] POTASSIUM 2020-01-27 07:39:00 Jack Huang [facility] PH, ARTERIAL 2020-01-27 07:39:00 [facility] HGB/HCT (H&H) - STAT LAB 2020-01-27 06:38:00 Yasmine Daniels [facility] POCT-GLUCOSE METER 2020-01-27 06:30:00 Betsy Messina [facility] OXYGEN SATURATION, 2020-01-27 03:40:00 [facility] POCT-GLUCOSE METER 2020-01-27 03:31:00 Betsy Messina [facility] CBC (HEMOGRAM ONLY) 2020-01-27 03:28:00 Sylvester [facility] CALCIUM, IONIZED 2020-01-27 03:28:00 Lilly Blanco [facility] PHOSPHORUS 2020-01-27 03:28:00 Lilly Blanco [facility] MAGNESIUM 2020-01-27 03:28:00 Lilly Blanco [facility] HEPATIC FUNCTION PANEL 2020-01-27 03:28:00 [facility] BASIC METABOLIC PANEL (7) 2020-01-27 03:28:00 Sylvester [facility] LACTIC ACID, ARTERIAL 2020-01-27 03:28:00 Deborah Gill [facility] POCT-GLUCOSE METER 2020-01-27 01:34:00 MuBetsy silva [facility] XR CHEST 1 VIEW 2020-01-27 01:20:00 Deanne Contreras [facility] es - PORTABLE/[facility]EDSIDE [facility] POCT-GLUCOSE METER 2020-01-26 22:58:00 Fawn [facility] CALCIUM, IONIZED 2020-01-26 22:43:00 Lilly Blanco [facility] PH, ARTERIAL 2020-01-26 22:43:00 Kenneth Phan [facility] PHOSPHORUS 2020-01-26 22:42:00 Lilly Blanco [facility] MAGNESIUM 2020-01-26 22:42:00 [facility] BASIC METABOLIC PANEL (7) 2020-01-26 22:42:00 Kenneth Phan I [facility] POCT-GLUCOSE METER 2020-01-26 21:02:00 Fawn [facility] POCT-GLUCOSE METER 2020-01-26 18:51:00 FawnBismark melendez [facility] POCT-GLUCOSE METER 2020-01-26 17:34:00 [facility] BLOOD GAS, ARTERIAL 2020-01-26 16:39:09 Jose Mgbechi U [facility] SODIUM NA-STAT LAB 2020-01-26 16:39:09 Erondu, Mgbechi U [facility] POTASSIUM-STAT LAB 2020-01-26 16:39:09 Erondu, Mgbechi U [facility] GLUCOSE-STAT LAB 2020-01-26 16:39:09 Erondu, Mgbechi U [facility] HGB/HCT (H&H) - STAT LAB 2020-01-26 16:39:09 Erondu Mgbechi U [facility] POCT-GLUCOSE METER 2020-01-26 16:39[facility] 2020-01-26 15:06:00 Fawn [facility] POCT-GLUCOSE METER 2020-01-26 14:04:00 Fawn, [facility] POCT-GLUCOSE METER 2020-01-26 13:16[facility]00 [facility] LEADS - 2020-01-26 12:45:00 Stew Fisher [facility] - INSERTION W/ [facility] ANESTHESIA (SING/DUAL/MULT) POCT-GLUCOSE METER 2020-01-26 12:31:00 [facility] POCT-GLUCOSE METER 2020-01-26 11:49:00 [facility] POCT-GLUCOSE METER 2020-01-26 11:31:00 [facility] CALCIUM, IONIZED 2020-01-26 11:00:00 Lilly Blanco [facility] PHOSPHORUS 2020-01-26 11:00:00 Lilly Blanco [facility] MAGNESIUM 2020-01-26 11:00:00 Lilly Blanco [facility] BASIC METABOLIC PANEL (7) 2020-01-26 11:00:00 Kenneth Phan I [facility] POCT-GLUCOSE METER 2020-01-26 10:59:00 Fawn [facility] POCT-GLUCOSE METER 2020-01-26 10:42:00 [facility] XR CHEST 1 VIEW 2020-01-26 10:14:00 Deanne Contreras [facility] es - PORTABLE/BEDSIDE Medical Center POCT-GLUCOSE METER 2020-01-26 10:01:00 [facility] POCT-GLUCOSE METER 2020-01-26 09:14:00 [facility] POCT-GLUCOSE METER 2020-01-26 08:21:00 [facility] POCT-GLUCOSE METER 2020-01-26 07:24:00 [facility] POTASSIUM 2020-01-26 07:21:00 Jack Huang [facility] PH, ARTERIAL 2020-01-26 07:21:00 [facility] POCT-GLUCOSE METER 2020-01-26 06:34:00 Fawn [facility] POCT-GLUCOSE METER 2020-01-26 05:43:00 [facility]ark [facility] CALCIUM, IONIZED 2020-01-26 04:11:00 Lilly Blanco [facility] POCT-GLUCOSE METER 2020-01-26 03:52:00 Fawn [facility] LACTIC ACID, ARTERIAL 2020-01-26 02:10:00 Deborah Gill Polycarp [facility] PROTHROMBIN TIME/INR 2020-01-26 02:06:00 Deborah Gillarp C [facility] CBC (HEMOGRAM ONLY) 2020-01-26 02:05:00 [facility]eredith [facility] PHOSPHORUS 2020-01-26 02:05:00 [facility] MAGNESIUM 2020-01-26 02:05:00 [facility] HEPATIC FUNCTION PANEL 2020-01-26 02:05:00 [facility] BASIC METABOLIC PANEL (7) 2020-01-26 02:05:00 Sylvester [facility] OXYGEN SATURATION, 2020-01-26 02:05:00 [facility] VANCOMYCIN LEVEL, RANDOM 2020-01-26 02:05:00 Yajaira Toribio [facility] BLOOD GAS, ARTERIAL 2020-01-26 02:05:00 Deborah Gill Polycarp [facility] TYPE AND SCREEN, AUTOMATED 2020-01-26 02:05:00 Deborah Gill carp [facility] POCT-GLUCOSE METER 2020-01-26 01:37:00 Bisamrk [facility] POCT-GLUCOSE METER 2020-01-26 00:26:00 Bismark [facility] CALCIUM, IONIZED 2020-01-25 23:18:00 [facility] POTASSIUM 2020-01-25 23:18:00 Jack Huang [facility] PH, ARTERIAL 2020-01-25 23:18:00 Kenneth Phan [facility] POCT-GLUCOSE METER 2020-01-25 22:27:00 B[facility]ark [facility] POCT-GLUCOSE METER 2020-01-25 20:47:00 B[facility]ark [facility] PHOSPHORUS 2020-01-25 19:12:00 Lilly Blanco [facility] MAGNESIUM 2020-01-25 19:12:00 Lilly Blanco [facility] BASIC METABOLIC PANEL (7) 2020-01-25 19:12:00 Kenneth Phan [facility] POCT-GLUCOSE METER 2020-01-25 18:28:00 [facility]ark [facility] PH, ARTERIAL 2020-01-25 18:22:00 Kenneth Phan [facility] TRANSFUSION SERVICE REPORT 2020-01-25 17:52:50 Harjit [facility] POCT-GLUCOSE METER 2020-01-25 16:18:00 Bismark [facility] POCT-GLUCOSE METER 2020-01-25 12:34:00 Bismark [facility] CALCIUM, IONIZED 2020-01-25 12:25:00 Lilly Blanco [facility] PHOSPHORUS 2020-01-25 12:25:00 Lilly Blanco [facility] MAGNESIUM 2020-01-25 12:25:00 Lilly Blanco [facility] BASIC METABOLIC PANEL (7) 2020-01-25 12:25:00 Fajilan, Kenneth [facility] POCT-GLUCOSE METER 2020-01-25 10:28:00 Fawn [facility] POCT-GLUCOSE METER 2020-01-25 08:01:00 Fawn [facility] POTASSIUM 2020-01-25 07:57:00 Jack Huang [facility] PH, ARTERIAL 2020-01-25 07:57:00 [facility] LACTIC ACID, ARTERIAL 2020-01-25 07:57:00 [facility]LO[facility], ARTERIAL 2020-01-25 07:57:00 Lilly Blanco [facility] POCT-GLUCOSE METER 2020-01-25 06:17:00 Fawn, [facility] ECG 12-LEAD 2020-01-25 04:24:08 Unknown, Hl7 [facility] POCT-GLUCOSE METER 2020-01-25 03:57:00 FawnBismark melendez [facility] OXYGEN SATURATION, 2020-01-25 03:46:00 [facility] ONLY[facility] 2020-01-25 03:41:00 Sylvester [facility] LACTIC ACID, ARTERIAL 2020-01-25 03:41:00 [facility] BLOOD GAS, ARTERIAL 2020-01-25 03:41:00 Lilly Blanco CH, I [facility] CALCIUM, IONIZED 2020-01-25 03:41:00 Lilly Blanco [facility] PT/APTT 2020-01-25 03:41:00 Lilly Blanco [facility] PHOSPHORUS 2020-01-25 03:41:00 Lilly Blanco [facility] MAGNESIUM 2020-01-25 03:41:00 [facility] BASIC METABOLIC PANEL (7) 2020-01-25 03:41:00 Lilly Blanco [facility] HEPATIC FUNCTION PANEL 2020-01-25 03:41:00 Lilly Blanco [facility] POCT-GLUCOSE METER 2020-01-25 02:23:00 [facility] POCT-GLUCOSE METER 2020-01-25 00:42:00 [facility] LACTIC ACID, ARTERIAL 2020-01-25 00:36:00 [facility] BLOOD GAS, ARTERIAL 2020-01-25 00:36:00 Lilly Blanco I [facility] XR CHEST 1 VIEW 2020-01-25 00:28:00 Darnell Akhtar [facility]/BEDSIDE [facility] PREPARE RBC 2020-01-24 23:54:00 [facility] PREPARE PLATELETS 2020-01-24 23:54:00 [facility] BLOOD GAS, ARTERIAL 2020-01-24 22:19:00 Lilly Blanco [facility] POCT-GLUCOSE METER 2020-01-24 22:00:00 [facility] POCT-GLUCOSE METER 2020-01-24 20:37:00 [facility] LACTIC ACID, ARTERIAL 2020-01-24 20:30:00 Kenneth Phan [facility] BLOOD GAS, ARTERIAL 2020-01-24 20:30:00 Lilly Blanco [facility] CALCIUM, IONIZED 2020-01-24 20:30:00 Lilly Blanco [facility] PHOSPHORUS 2020-01-24 20:30:00 Lilly Blanco [facility] MAGNESIUM 2020-01-24 20:30:00 Lilly Blanco [facility] BASIC METABOLIC PANEL (7) 2020-01-24 20:30:00 Lilly Blanco [facility] CBC (HEMOGRAM ONLY) 2020-01-24 20:30:00 Lilly Blanco CH, I [facility] PH, ARTERIAL 2020-01-24 20:30:00 [facility] POCT-GLUCOSE METER 2020-01-24 18:01:00 Fawn [facility] TRANSFUSION SERVICE REPORT 2020-01-24 17:53:05 Oneal Lombardi [facility] POCT-GLUCOSE METER 2020-01-24 16:16:00 B[facility]ark Augustine [facility] POTASSIUM 2020-01-24 16:07:00 Jack Huang [facility] PH, ARTERIAL 2020-01-24 16:07:00 [facility] LACTIC ACID, ARTERIAL 2020-01-24 16:07:00 [facility] BLOOD GAS, ARTERIAL 2020-01-24 16:07:00 Lilly Blanco CH I [facility] POCT-GLUCOSE METER 2020-01-24 13:53:00 Bismark Augustine [facility] POCT-GLUCOSE METER 2020-01-24 13:00:00 Bismark Augustine [facility] POCT-GLUCOSE METER 2020-01-24 11:47:00 Fawn [facility] LACTIC ACID, ARTERIAL 2020-01-24 11:42:00 [facility] BLOOD GAS, ARTERIAL 2020-01-24 11:42:00 Lilly Blanco [facility] CALCIUM, IONIZED 2020-01-24 11:42:00 Lilly Blanco [facility] PHOSPHORUS 2020-01-24 11:42:00 Lilly Blanco [facility] MAGNESIUM 2020-01-24 11:42:00 Lilly Blanco [facility] BASIC METABOLIC PANEL (7) 2020-01-24 11:42:00 Lilly Blanco [facility] POCT-GLUCOSE METER 2020-01-24 10:55:00 Bismark Augustine [facility] ECG 12-LEAD 2020-01-24 10:37:57 Unknown, Hl7 [facility] POCT-GLUCOSE METER 2020-01-24 08:25:00 Bismark Augustine [facility] PH, ARTERIAL 2020-01-24 08:19:00 [facility], ARTERIAL 2020-01-24 08:19:00 [facility] BLOOD GAS, ARTERIAL 2020-01-24 08:19:00 Lilly Blanco [facility] ECG 12-LEAD 2020-01-24 05:50:22 Unknown, Hl7 [facility] ECG 12-LEAD 2020-01-24 05:41:48 Lilly Blanco [facility] POTASSIUM 2020-01-24 03:43:00 Jack Huang [facility] CBC (HEMOGRAM ONLY) 2020-01-24 03:43:00 Sylvester [facility] LACTIC ACID, ARTERIAL 2020-01-24 03:43:00 [facility] BLOOD [facility]AS, ARTERIAL 2020-01-24 03:43:00 Lilly Blanco [facility] CALCIUM, IONIZED 2020-01-24 03:43:00 Lilly Blanco [facility] OXYGEN SATURATION, 2020-01-24 03:43:00 [facility] PT/APTT 2020-01-24 03:43:00 [facility] PHOSPHORUS 2020-01-24 03:43:00 [facility] MAGNESIUM 2020-01-24 03:43:00 [facility] CALCIUM 2020-01-24 03:43:00 [facility] HEPATIC FUNCTION PANEL 2020-01-24 03:43:[address] [facility]OLIC PANEL (7) 2020-01-24 03:43:00 Lilly Blanco [facility] XR CHEST 1 VIEW 2020-01-24 00:49:00 Darnell Akhtar [facility]/BEDSIDE [facility] POCT-GLUCOSE METER 2020-01-23 23:40:00 Bismark Augustine [facility] BASIC METABOLIC PANEL (7) 2020-01-23 23:36:00 Kenneth Phan I [facility] MAGNESIUM 2020-01-23 23:36:00 [facility], ARTERIAL 2020-01-23 23:36:00 [facility] PHOSPHORUS 2020-01-23 23:36:00 [facility] LACT[facility] ACID, ARTERIAL 2020-01-23 23:36[facility]00 [facility]LO[facility], ARTERIAL 2020-01-23 23:36:00 Lilly Blanco [facility] OXYGEN SATURATION, 2020-01-23 22:56:[address] [facility] HGB/HCT (H&H) - STAT LAB 2020-01-23 22:54:00 Lilly Blanco [facility] POCT-GLUCOSE METER 2020-01-23 21:16:00 FawnBismark melendez [facility] ECHOCARDIOGRAM REPORT - 2020-01-23 21:12:42 Provider, Oneal I [facility] PERIPHERAL VASCULAR REPORT 2020-01-23 21:12:36 Provider, Default [facility] CALCIUM, IONIZED 2020-01-23 20:03:00 Lilly Blanco [facility] MAGNESIUM 2020-01-23 20:03:00 Lilly Blancomtmayank [facility] OXYGEN SATURATION, 2020-01-23 20:03:[address] [facility] BLOOD GAS, ARTERIAL 2020-01-23 20:03:00 Lilly Blanco [facility] LACTIC ACID, ARTERIAL 2020-01-23 20:03:00 Lilly Blanco [facility] BLOOD GAS, ARTERIAL 2020-01-23 19:05:00 [facility] 2020-01-23 19:05:00 Fawn [facility] POTASSIUM-STAT LAB 2020-01-23 19:05:00 Fawn [facility] GLUCOSE-STAT LAB 2020-01-23 [facility] - [facility] LAB 2020-01-23 19:05:00 Bismark Augustine [facility] BLOOD GAS, ARTERIAL 2020-01-23 17:58:00 Fawn, [facility] SODIUM NA-STAT LAB 2020-01-23 17:58:00 Fawn [facility] POTASSIUM-STAT LAB 2020-01-23 17:58:00 [facility] 2020-01-23 17:58:[facility] - STAT LAB 2020-01-23 17:58:00 FawnBismark melendez [facility] TRANSFUSION SERVICE REPORT 2020-01-23 17:51:31 Oneal Lombardi [facility] BLOOD GAS, ARTERIAL 2020-01-23 17:03:00 Fawn [facility] SODIUM NA-STAT LAB 2020-01-23 17:03:00 [facility] POT[facility]-STAT LAB 2020-01-23 17:03:00 [facility] GLUCOSE-STAT LAB 2020-01-23 17:03:00 [facility] HGB/HCT (H&H) - STAT LAB 2020-01-23 17:03:00 FawnBismark melendez [facility] MAGNESIUM 2020-01-23 16:08:00 [facility] PHOSPHORUS 2020-01-23 16:08:00 Ravitd [facility] LACTIC ACID, ARTERIAL 2020-01-23 16:08:00 [facility] BLOOD GAS, ARTERIAL 2020-01-23 16:08:00 Fawn [facility] SODIUM NA-STAT LAB 2020-01-23 16:08:00 Fawn [facility] POTASSIUM-STAT LAB 2020-01-23 16:08:00 Fawn, [facility] GLUCOSE-STAT LAB 2020-01-23 16:08:00 FawnBismark melendez [facility] HGB/HCT (H&H) - STAT LAB 2020-01-23 16:08:00 Fawn B[facility] HEPATITIS B SURFACE 2020-01-23 14:37:00 Jack Huang [facility] BASIC METABOLIC PANEL (7) 2020-01-23 14:37:00 Kang Frank [facility] LACTIC ACID, ARTERIAL 2020-01-23 14:37:00 Ravitd [facility] BLOOD GAS, ARTERIAL 2020-01-23 14:37:00 [facility] 2020-01-23 14:37:00 [facility] POTASSIUM 2020-01-23 14:37:00 [facility] POCT-GLUCOSE METER 2020-01-23 14:18:00 Fawn [facility] POCT-GLUCOSE METER 2020-01-23 13:18:00 Fawn [facility] ECG 12-LEAD 2020-01-23 12:05:26 Unknown, Hl7 [facility] ECG 12-LEAD 2020-01-23 12:04:53 Unknown, Hl7 [facility] ECG 12-LEAD 2020-01-23 12:04:35 Unknown, Hl7 [facility] ECG 12-LEAD 2020-01-23 12:01:16 Unknown, Hl7 [facility] XR CHEST 1 VIEW 2020-01-23 12:01:00 Elisabeth Orozco [facility] PORTABLE/BEDSIDE [facility] Center BASIC METABOLIC PANEL (7) 2020-01-23 11:56:00 Elisabeth Orozco ma [facility] MAGNESIUM 2020-01-23 11:56:00 Elisabeth Orozco [facility] PHOSPHORUS 2020-01-23 11:56:00 Elisabeth Orozco [facility] OXYGEN SATURATION, 2020-01-23 11:23:[address] [facility] CALCIUM, IONIZED 2020-01-23 11:22:00 Elisabeth Orozco [facility] LACTIC ACID, ARTERIAL 2020-01-23 11:22:00 Elisabeth Orozco [facility] BLOOD GAS, ARTERIAL 2020-01-23 11:22:00 Elsiabeth Orozco [facility] PROTHROMBIN TIME/INR 2020-01-23 11:22:00 Elisabeth Orozco CH I [facility] APTT 2020-01-23 11:22:00 Elisabeth Orozco [facility] FIBRINOGEN 2020-01-23 11:22:00 Elisabeth Orozco [facility] PLATELET COUNT 2020-01-23 11:22:00 Elisabeth Orozco [facility] SODIUM NA-STAT LAB 2020-01-23 11:22:00 Elisabeth Orozco [facility] POTASSIUM-STAT LAB 2020-01-23 11:22:00 Elisabeth Orozco [facility] GLUCOSE-STAT LAB 2020-01-23 11:22:00 Elisabeth Orozco [facility] HGB/HCT (H&H) - STAT LAB 2020-01-23 11:22:00 Elisabeth Orozco [facility] CBC W/PLT COUNT & AUTO 2020-01-23 11:22:00 Elisabeth Orozco [facility] CALCIUM, IONIZED 2020-01-23 10:34:12 [facility] BLOOD GAS, ARTERIAL 2020-01-23 10:34:12 [facility] NA[facility] 2020-01-23 10:34[facility] 2020-01-23 10:34:12 [facility] 2020-01-23 10:34:12 [facility] HGB/HCT (H&H) - STAT LAB 2020-01-23 10:34:12 [facility] POCT-ACT 2020-01-23 10:05:00 Bismark Augustine [facility] TRANSFUSE LEUKO-REDUCED 2020-01-23 10:03:30 [facility] TRANSFUSE LEUKO-REDUCED 2020-01-23 10:03:15 [facility] CALCIUM, IONIZED 2020-01-23 09:53:31 [facility] PROTHROMBIN TIME/INR 2020-01-23 09:53:31 [facility] APTT 2020-01-23 09:53:31 [facility] FIBRINOGEN 2020-01-23 09:53:31 [facility] PLATELET COUNT 2020-01-23 09:53:31 [facility] HGB/HCT (H&H) - STAT LAB 2020-01-23 09:53:31 [facility] BLOOD GAS, ARTERIAL 2020-01-23 09:53:31 [facility] SODIUM NA-STAT LAB 2020-01-23 09:53:31 [facility] 2020-01-23 09:53:31 [facility] GLU[facility]SE-STAT LAB 2020-01-23 09:53:31 [facility] CBC W/PLT COUNT & AUTO 2020-01-23 09:53:00 Frank Kang [facility] POCT-ACT 2020-01-23 09:28:00 Fawn B[facility]ark [facility] BLOOD GAS, ARTERIAL 2020-01-23 09:27:07 Fawn [facility] SODIUM NA-STAT LAB 2020-01-23 09:27:07 Fawn [facility] POTASSIUM-STAT LAB 2020-01-23 09:27:07 Fawn [facility] GLUCOSE-STAT LAB 2020-01-23 09:27:07 Fawn [facility] HGB/HCT (H&H) - STAT LAB 2020-01-23 09:27:07 Fawn B[facility] POCT-ACT 2020-01-23 09:04:00 [facility] TRANSFUSE LEUKO-REDUCED 2020-01-23 09:02:[facility] BLOOD GAS, ARTERIAL 2020-01-23 09:01:15 Fawn [facility] SODIUM NA-STAT LAB 2020-01-23 09:01:15 Fawn [facility] POTASSIUM-STAT LAB 2020-01-23 09:01:15 [facility] 2020-01-23 09:01[facility] - STAT LAB 2020-01-23 09:01:15 Bismark Augustine [facility] ANAEROBIC CULTURE 2020-01-23 08:47:34 Bismark Augustine [facility] AFB CULTURE + SMEAR 2020-01-23 08:47:34 Bismark Augustine [facility] FUNGUS CULTURE + SMEAR 2020-01-23 08:47:34 Bismark Augustine [facility] SURGICALLY OBTAINED 2020-01-23 08:47:34 Bismark Augustine [facility] - CULTURE + GRAM STAIN [facility] ter SPIN/CONCENTRATION CHARGE 2020-01-23 08:47:00 Bismark Augustine [facility] POCT-ACT 2020-01-23 08:44:00 Bismark Augustine [facility] ANESTHESIA DONELL 2020-01-23 08:20:43 [facility] TRANSFUSE LEUKO-REDUCED 2020-01-23 08:16:01 [facility] RED BLOOD CELLS [facility] CALCIUM, IONIZED 2020-01-23 08:00:42 [facility] BLOOD GAS, ARTERIAL 2020-01-23 08:00:42 [facility] SODIUM NA-STAT LAB 2020-01-23 08:00:42 [facility] POTASSIUM-STAT LAB 2020-01-23 08:00:42 [facility] GLUCOSE-STAT LAB 2020-01-23 08:00:42 [facility] HGB/HCT (H&H) - STAT LAB 2020-01-23 08:00:42 [facility] BYPASS,AORTO CORONARY 2020-01-23 07:30:00 Bismark Augustine [facility] - ALIA/SVG [facility] XR CHEST 1 VIEW 2020-01-23 03:40:00 Darnell Akhtar [facility] - PORTABLE/BEDSIDE [facility] APTT 2020-01-23 03:34:00 Rashad Diaz [facility] COMPREHENSIVE METABOLIC 2020-01-23 03:34:[address] Jack [address] [facility] TROPONIN I 2020-01-23 03:34:00 Giovana [facility] MAGNESIUM 2020-01-23 03:34:00 Kang Frank [facility] PHOSPHORUS 2020-01-23 03:34:00 Kang Frank [facility] CBC W/PLT COUNT & AUTO 2020-01-23 03:34:00 Giovana [facility] CAROTID DOPPLER BILATERAL 2020-01-23 00:24:00 Lan Chapman I [facility] XR CHEST 1 VIEW 2020-01-22 23:21:00 Giovana [facility] PORTABLE/BEDSIDE [facility] XR CHEST 1 VIEW 2020-01-22 22:34:00 Giovana [facility] PORTABLE/BEDSIDE [facility] 2D ECHO W/ DOPPLER 2020-01-22 20:43:23 [facility] (CW/PW/COLOR) [facility] SARS-COV2/RT-PCR ([facility] & 2020-01-22 18:07:00 Black Akhtar [facility] - REF LABS) [facility] APTT 2020-01-22 18:06:00 Joe [facility] ECG 12-LEAD 2020-01-22 17:48:14 Unknown, Hl7 [facility] XR CHEST 1 VIEW 2020-01-22 15:23:00 Maribel Rothman [facility] COMPREHENSIVE METABOLIC 2020-01-22 14:08:00 Maribel Rothman [facility] LIPID PANEL 2020-01-22 14:08:[address] [facility] MAGNESIUM 2020-01-22 14:08:00 [facility] 2020-01-22 14:08:00 Joe [facility] ECG 12-LEAD 2020-01-22 13:30:24 Giovana [facility] POCT-GLUCOSE METER 2020-01-22 13:28:00 Lan Chapman [facility] APTT 2020-01-22 13:23:00 Lorna [facility] HEMOGLOBIN A1C 2020-01-22 13:23:00 Lorna [facility] PROTHROMBIN TIME/INR 2020-01-22 13:23:00 [facility] TYPE AND SCREEN, AUTOMATED 2020-01-22 13:23:00 Lorna [facility] CBC W/PLT COUNT & AUTO 2020-01-22 13:23:00 Lorna [facility] Plan of Care Planned Activity Planned Date Details Comments Source Future Scheduled 2020-04-13 INFLUENZA VACCINE [place] [facility] 00:00:00 [code = INFLUENZA VACCINE] Future Scheduled 2001 65+ PNEUMOCOCCAL [place] [facility] 00:00:00 VACCINE (1 of 2 - PCV13) [code = 65+ PNEUMOCOCCAL VACCINE (1 of 2 - PCV13)] Future Scheduled 1986 SHINGLES VACCINES (#1) [place] [facility] 00:00:00 [code = SHINGLES VACCINES (#1)] Future Scheduled 1946 DIABETIC FOOT EXAM [place] [facility] 00:00:00 [code = DIABETIC FOOT EXAM] Future Scheduled 1946 URINE MICROALBUMIN [place] [facility] 00:00:00 [code = URINE MICROALBUMIN] Future Scheduled 1936 DIABETIC RETINAL EYE [facility] 00:00:00 EXAM [code = DIABETIC RETINAL EYE EXAM] Results Test Description Test Time Test Comments Results Result Comments Source BASIC METABOLIC PANEL 2020-03-20 06:17:00 Test Item Value Reference Range Interpretation Comme nts SODIUM (test code = NA) 140 MMOL/L 136-143 N POTASSIUM (test code = K) 3.4 MMOL/L 3.5-5.1 L CHLORIDE (test code = CL) 99 MMOL/L 98-107 N CARBON DIOXIDE (test code = 26 mmol/L 24-31 N CO2) GLUCOSE (test code = GLU) 75 mg/dL 70-104 N BLOOD UREA NITROGEN (test code 37.6 MG/DL 7.0-21.0 H = BUN) GLOMERULAR FILTRATION RATE 12 >60 L T he estimated glomerular (test code = GFR) filtration rate is computed usingpatient ra ce, age (>18), sex, and serum creatinine. If anyof the neede d data elements are missing the Laboratory cannot compute an estimation of the glomerular filtration rate. CREATININE (test code = CREAT) 4.9 mg/dL 0.8-1.5 H CALCIUM (test code = CA) 8.4 mg/dL 8.8-10.2 L CBC W/AUTO [id number] 05:55:00 Test Item Value Reference Range Interpretation Comments WHITE BLOOD CELL (test code = 8.3 x10 3/uL 4.8-10.8 N WBC) RED BLOOD CELL (test code = 2.70 x10 6/uL 4.70-6.10 L RBC) HEMOGLOBIN (test code = HGB) 8.2 g/dL 14.5-20 L HEMATOCRIT (test code = HCT) 26.3 % 42.0-52.0 L MEAN CELL VOLUME (test code = 97.4 fL 80.0-94.0 H MCV) MEAN CELL HGB (test code = MCH) 30.4 pg 27-31 N MEAN CELL HGB CONCENTRATION 31.2 G/DL 33-36.5 L (test code = MCHC) RED CELL DISTRIBUTION WIDTH 17.6 % 12.9-16.9 H (test code = RDW) PLATELET COUNT (test code = 215 150-440 N PLT) MEAN PLATELET VOLUME (test code 9.7 fL 8.9-12.4 N = MPV) NEUTROPHIL % (test code = NT%) 77.1 % 42.2-75.2 H LYMPHOCYTE % (test code = LY%) 9.6 % 20.5-51.1 L MONOCYTE % (test code = MO%) 9.6 % 1.7-9.3 H EOSINOPHIL % (test code = EO%) 1.6 % 0.0-7.0 N BASOPHIL % (test code = BA%) 0.4 % 0-2.5 N NEUTROPHIL # (test code = NT#) 6.43 x10 3/uL 1.80-7.70 N LYMPHOCYTE # (test code = LY#) 0.80 x10 3/uL 1.00-4.80 L MONOCYTE # (test code = MO#) 0.80 x10 3/uL 0.00-0.80 N EOSINOPHIL # (test code = EO#) 0.13 x10 3/uL 0.00-0.45 N BASOPHIL # (test code = BA#) 0.03 x10 3/uL 0.0-0.20 N PROTHROMBIN [id number] 05:51:00 Test Item Value Reference Range Interpretation Comments PROTHROMBIN TIME 19.1 SECONDS 10.3-12.9 H PATIENT (test code = PTP) INTERNATIONAL 1.66 INR UNIT 0.9-1.11 H The INR is us eful only NORMAL RATIO (test for monit oring code = INR) anticoagulant therapy.It may be unreliable in t he initial phase o f antigoagulation and in unstable patien ts. Indication for Anticoagulation Recommend ed INR 1. Prevention o f venous thomboembolism 2.0-3.0in high -risk patients; treat ment of venousthrombosi s and pulmonary embol ism aftera course o f heparin; preven tion of systemicembolis m in a variety of cond itions, including atria l fibrillation an d prothetic tissu e heart valves, 2. Pros thetic mechanical hear t valves; 2.5-3.5recurren t systemic emboli sm. BASIC METABOLIC [id number] 06:39:00 Test Item Value Reference Range Interpretation Comments SODIUM (test code = 141 MMOL/L 136-143 N NA) POTASSIUM (test code 3.3 MMOL/L 3.5-5.1 L = K) CHLORIDE (test code = 101 MMOL/L 98-107 N CL) CARBON DIOXIDE (test 27 mmol/L 24-31 N code = CO2) GLUCOSE (test code = 91 mg/dL 70-104 N GLU) BLOOD UREA NITROGEN 23.8 MG/DL 7.0-21.0 H (test code = BUN) GLOMERULAR FILTRATION 18 >60 L The es timated RATE (test code = glomerular filtration GFR) rate is compute d usingpatient ra ce, age (>18), sex, and serum creatinine. If anyof the needed data elements are mi ssing the Laboratory cannot compute an darell mation of the glomerul ar filtration rate . CREATININE (test code 3.5 mg/dL 0.8-1.5 H = CREAT) CALCIUM (test code = 8.1 mg/dL 8.8-10.2 L CA) PROTHROMBIN [id number] 05:59:00 Test Item Value Reference Range Interpretation Comments PROTHROMBIN TIME 18.5 SECONDS 10.3-12.9 H PATIENT (test code = PTP) INTERNATIONAL 1.61 INR UNIT 0.9-1.11 H The INR is us eful only NORMAL RATIO (test for monit oring code = INR) anticoagulant therapy.It may be unreliable in t he initial phase o f antigoagulation and in unstable patien ts. Indication for Anticoagulation Recommend ed INR 1. Prevention o f venous thomboembolism 2.0-3.0in high -risk patients; treat ment of venousthrombosi s and pulmonary embol ism aftera course o f heparin; preven tion of systemicembolis m in a variety of cond itions, including atria l fibrillation an d prothetic tissu e heart valves, 2. Pros thetic mechanical hear t valves; 2.5-3.5recurren t systemic emboli sm. CBC W/AUTO [id number] 05:45:00 Test Item Value Reference Range Interpretation Comments WHITE BLOOD CELL (test code = 7.6 x10 3/uL 4.8-10.8 N WBC) RED BLOOD CELL (test code = 2.67 x10 6/uL 4.70-6.10 L RBC) HEMOGLOBIN (test code = HGB) 8.2 g/dL 14.5-20 L HEMATOCRIT (test code = HCT) 26.2 % 42.0-52.0 L MEAN CELL VOLUME (test code = 98.1 fL 80.0-94.0 H MCV) MEAN CELL HGB (test code = MCH) 30.7 pg 27-31 N MEAN CELL HGB CONCENTRATION 31.3 G/DL 33-36.5 L (test code = MCHC) RED CELL DISTRIBUTION WIDTH 17.4 % 12.9-16.9 H (test code = RDW) PLATELET COUNT (test code = 213 150-440 N PLT) MEAN PLATELET VOLUME (test code 9.5 fL 8.9-12.4 N = MPV) NEUTROPHIL % (test code = NT%) 75.3 % 42.2-75.2 H LYMPHOCYTE % (test code = LY%) 11.7 % 20.5-51.1 L MONOCYTE % (test code = MO%) 9.6 % 1.7-9.3 H EOSINOPHIL % (test code = EO%) 1.7 % 0.0-7.0 N BASOPHIL % (test code = BA%) 0.4 % 0-2.5 N NEUTROPHIL # (test code = NT#) 5.75 x10 3/uL 1.80-7.70 N LYMPHOCYTE # (test code = LY#) 0.89 x10 3/uL 1.00-4.80 L MONOCYTE # (test code = MO#) 0.73 x10 3/uL 0.00-0.80 N EOSINOPHIL # (test code = EO#) 0.13 x10 3/uL 0.00-0.45 N BASOPHIL # (test code = BA#) 0.03 x10 3/uL 0.0-0.20 N COVID 19 INHOUSE [id number] 12:41:00 Test Item Value Reference Range Interpretation Comments COVID 19 INHOUSE AG (test code = NEGATIVE NEGATIVE [id number]) BASIC METABOLIC [id number] 07:29:00 Test Item Value Reference Range Interpretation Comments SODIUM (test code = 139 MMOL/L 136-143 N NA) POTASSIUM (test code 3.2 MMOL/L 3.5-5.1 L = K) CHLORIDE (test code = 100 MMOL/L 98-107 N CL) CARBON DIOXIDE (test 27 mmol/L 24-31 N code = CO2) GLUCOSE (test code = 112 mg/dL 70-104 H GLU) BLOOD UREA NITROGEN 47.0 MG/DL 7.0-21.0 H (test code = BUN) GLOMERULAR FILTRATION 10 >60 L The es timated RATE (test code = glomerular filtration GFR) rate is compute d usingpatient ra ce, age (>18), sex, and serum creatinine. If anyof the needed data elements are mi ssing the Laboratory cannot compute an darell mation of the glomerul ar filtration rate . CREATININE (test code 5.7 mg/dL 0.8-1.5 H = CREAT) CALCIUM (test code = 8.3 mg/dL 8.8-10.2 L CA) CBC W/AUTO [id number] 07:20:00 Test Item Value Reference Range Interpretation Comments WHITE BLOOD CELL (test code = 8.1 x10 3/uL 4.8-10.8 N WBC) RED BLOOD CELL (test code = 2.66 x10 6/uL 4.70-6.10 L RBC) HEMOGLOBIN (test code = HGB) 8.0 g/dL 14.5-20 L HEMATOCRIT (test code = HCT) 25.9 % 42.0-52.0 L MEAN CELL VOLUME (test code = 97.4 fL 80.0-94.0 H MCV) MEAN CELL HGB (test code = MCH) 30.1 pg 27-31 N MEAN CELL HGB CONCENTRATION 30.9 G/DL 33-36.5 L (test code = MCHC) RED CELL DISTRIBUTION WIDTH 17.2 % 12.9-16.9 H (test code = RDW) PLATELET COUNT (test code = 210 150-440 N PLT) MEAN PLATELET VOLUME (test code 9.6 fL 8.9-12.4 N = MPV) NEUTROPHIL % (test code = NT%) 77.8 % 42.2-75.2 H LYMPHOCYTE % (test code = LY%) 10.4 % 20.5-51.1 L MONOCYTE % (test code = MO%) 9.0 % 1.7-9.3 N EOSINOPHIL % (test code = EO%) 1.1 % 0.0-7.0 N BASOPHIL % (test code = BA%) 0.2 % 0-2.5 N NEUTROPHIL # (test code = NT#) 6.31 x10 3/uL 1.80-7.70 N LYMPHOCYTE # (test code = LY#) 0.84 x10 3/uL 1.00-4.80 L MONOCYTE # (test code = MO#) 0.73 x10 3/uL 0.00-0.80 N EOSINOPHIL # (test code = EO#) 0.09 x10 3/uL 0.00-0.45 N BASOPHIL # (test code = BA#) 0.02 x10 3/uL 0.0-0.20 N PROTHROMBIN [id number] 07:52:00 Test Item Value Reference Range Interpretation Comments PROTHROMBIN TIME 30.8 SECONDS 10.3-12.9 H PATIENT (test code = PTP) INTERNATIONAL 2.64 INR UNIT 0.9-1.11 H The INR is us eful only NORMAL RATIO (test for monit oring code = INR) anticoagulant therapy.It may be unreliable in t he initial phase o f antigoagulation and in unstable patien ts. Indication for Anticoagulation Recommend ed INR 1. Prevention o f venous thomboembolism 2.0-3.0in high -risk patients; treat ment of venousthrombosi s and pulmonary embol ism aftera course o f heparin; preven tion of systemicembolis m in a variety of cond itions, including atria l fibrillation an d prothetic tissu e heart valves, 2. Pros thetic mechanical hear t valves; 2.5-3.5recurren t systemic emboli sm. BASIC METABOLIC [id number] 07:41:00 Test Item Value Reference Range Interpretation Comments SODIUM (test code = 136 MMOL/L 136-143 N NA) POTASSIUM (test code 3.5 MMOL/L 3.5-5.1 N = K) CHLORIDE (test code = 97 MMOL/L 98-107 L CL) CARBON DIOXIDE (test 30 mmol/L 24-31 N code = CO2) GLUCOSE (test code = 131 mg/dL 70-104 H GLU) BLOOD UREA NITROGEN 33.7 MG/DL 7.0-21.0 H (test code = BUN) GLOMERULAR FILTRATION 12 >60 L The es timated RATE (test code = glomerular filtration GFR) rate is compute d usingpatient ra ce, age (>18), sex, and serum creatinine. If anyof the needed data elements are mi ssing the Laboratory cannot compute an darell mation of the glomerul ar filtration rate . CREATININE (test code 4.8 mg/dL 0.8-1.5 H = CREAT) CALCIUM (test code = 8.1 mg/dL 8.8-10.2 L CA) CBC W/AUTO [id number] 07:07:00 Test Item Value Reference Range Interpretation Comments WHITE BLOOD CELL (test code = 6.4 x10 3/uL 4.8-10.8 N WBC) RED BLOOD CELL (test code = 2.50 x10 6/uL 4.70-6.10 L RBC) HEMOGLOBIN (test code = HGB) 7.7 g/dL 14.5-20 L HEMATOCRIT (test code = HCT) 24.5 % 42.0-52.0 L MEAN CELL VOLUME (test code = 98.0 fL 80.0-94.0 H MCV) MEAN CELL HGB (test code = MCH) 30.8 pg 27-31 N MEAN CELL HGB CONCENTRATION 31.4 G/DL 33-36.5 L (test code = MCHC) RED CELL DISTRIBUTION WIDTH 16.9 % 12.9-16.9 N (test code = RDW) PLATELET COUNT (test code = 201 150-440 N PLT) MEAN PLATELET VOLUME (test code 9.9 fL 8.9-12.4 N = MPV) NEUTROPHIL % (test code = NT%) 77.1 % 42.2-75.2 H LYMPHOCYTE % (test code = LY%) 9.5 % 20.5-51.1 L MONOCYTE % (test code = MO%) 10.5 % 1.7-9.3 H EOSINOPHIL % (test code = EO%) 1.4 % 0.0-7.0 N BASOPHIL % (test code = BA%) 0.2 % 0-2.5 N NEUTROPHIL # (test code = NT#) 4.94 x10 3/uL 1.80-7.70 N LYMPHOCYTE # (test code = LY#) 0.61 x10 3/uL 1.00-4.80 L MONOCYTE # (test code = MO#) 0.67 x10 3/uL 0.00-0.80 N EOSINOPHIL # (test code = EO#) 0.09 x10 3/uL 0.00-0.45 N BASOPHIL # (test code = BA#) 0.01 x10 3/uL 0.0-0.20 N BASIC METABOLIC [id number] 07:52:00 Test Item Value Reference Range Interpretation Comments SODIUM (test code = 135 MMOL/L 136-143 L NA) POTASSIUM (test code 3.3 MMOL/L 3.5-5.1 L = K) CHLORIDE (test code = 96 MMOL/L 98-107 L CL) CARBON DIOXIDE (test 28 mmol/L 24-31 N code = CO2) GLUCOSE (test code = 53 mg/dL 70-104 L GLU) BLOOD UREA NITROGEN 20.2 MG/DL 7.0-21.0 N (test code = BUN) GLOMERULAR FILTRATION 18 >60 L The es timated RATE (test code = glomerular filtration GFR) rate is compute d usingpatient ra ce, age (>18), sex, and serum creatinine. If anyof the needed data elements are mi ssing the Laboratory cannot compute an darell mation of the glomerul ar filtration rate . CREATININE (test code 3.4 mg/dL 0.8-1.5 H = CREAT) CALCIUM (test code = 8.2 mg/dL 8.8-10.2 L CA) PROTHROMBIN [id number] 07:37:00 Test Item Value Reference Range Interpretation Comments PROTHROMBIN TIME 36.5 SECONDS 10.3-12.9 H PATIENT (test code = PTP) INTERNATIONAL 3.12 INR UNIT 0.9-1.11 H The INR is us eful only NORMAL RATIO (test for monit oring code = INR) anticoagulant therapy.It may be unreliable in t he initial phase o f antigoagulation and in unstable patien ts. Indication for Anticoagulation Recommend ed INR 1. Prevention o f venous thomboembolism 2.0-3.0in high -risk patients; treat ment of venousthrombosi s and pulmonary embol ism aftera course o f heparin; preven tion of systemicembolis m in a variety of cond itions, including atria l fibrillation an d prothetic tissu e heart valves, 2. Pros thetic mechanical hear t valves; 2.5-3.5recurren t systemic emboli sm. CBC W/AUTO [id number] 07:01:00 Test Item Value Reference Range Interpretation Comments WHITE BLOOD CELL (test code = 6.5 x10 3/uL 4.8-10.8 N WBC) RED BLOOD CELL (test code = 2.62 x10 6/uL 4.70-6.10 L RBC) HEMOGLOBIN (test code = HGB) 8.1 g/dL 14.5-20 L HEMATOCRIT (test code = HCT) 25.4 % 42.0-52.0 L MEAN CELL VOLUME (test code = 96.9 fL 80.0-94.0 H MCV) MEAN CELL HGB (test code = MCH) 30.9 pg 27-31 N MEAN CELL HGB CONCENTRATION 31.9 G/DL 33-36.5 L (test code = MCHC) RED CELL DISTRIBUTION WIDTH 16.9 % 12.9-16.9 N (test code = RDW) PLATELET COUNT (test code = 205 150-440 N PLT) MEAN PLATELET VOLUME (test code 9.4 fL 8.9-12.4 N = MPV) NEUTROPHIL % (test code = NT%) 75.9 % 42.2-75.2 H LYMPHOCYTE % (test code = LY%) 9.6 % 20.5-51.1 L MONOCYTE % (test code = MO%) 11.3 % 1.7-9.3 H EOSINOPHIL % (test code = EO%) 1.5 % 0.0-7.0 N BASOPHIL % (test code = BA%) 0.3 % 0-2.5 N NEUTROPHIL # (test code = NT#) 4.95 x10 3/uL 1.80-7.70 N LYMPHOCYTE # (test code = LY#) 0.63 x10 3/uL 1.00-4.80 L MONOCYTE # (test code = MO#) 0.74 x10 3/uL 0.00-0.80 N EOSINOPHIL # (test code = EO#) 0.10 x10 3/uL 0.00-0.45 N BASOPHIL # (test code = BA#) 0.02 x10 3/uL 0.0-0.20 N PROTHROMBIN [id number] 07:33:00 Test Item Value Reference Range Interpretation Comments PROTHROMBIN TIME 39.3 SECONDS 10.3-12.9 H PATIENT (test code = PTP) INTERNATIONAL 3.35 INR UNIT 0.9-1.11 H The INR is us eful only NORMAL RATIO (test for monit oring code = INR) anticoagulant therapy.It may be unreliable in t he initial phase o f antigoagulation and in unstable patien ts. Indication for Anticoagulation Recommend ed INR 1. Prevention o f venous thomboembolism 2.0-3.0in high -risk patients; treat ment of venousthrombosi s and pulmonary embol ism aftera course o f heparin; preven tion of systemicembolis m in a variety of cond itions, including atria l fibrillation an d prothetic tissu e heart valves, 2. Pros thetic mechanical hear t valves; 2.5-3.5recurren t systemic emboli sm. BASIC METABOLIC [id number] 07:24:00 Test Item Value Reference Range Interpretation Comments SODIUM (test code = 136 MMOL/L 136-143 N NA) POTASSIUM (test code 4.4 MMOL/L 3.5-5.1 N = K) CHLORIDE (test code = 95 MMOL/L 98-107 L CL) CARBON DIOXIDE (test 26 mmol/L 24-31 N code = CO2) GLUCOSE (test code = 60 mg/dL 70-104 L GLU) BLOOD UREA NITROGEN 37.6 MG/DL 7.0-21.0 H (test code = BUN) GLOMERULAR FILTRATION 11 >60 L The es timated RATE (test code = glomerular filtration GFR) rate is compute d usingpatient ra ce, age (>18), sex, and serum creatinine. If anyof the needed data elements are mi ssing the Laboratory cannot compute an darell mation of the glomerul ar filtration rate . CREATININE (test code 5.3 mg/dL 0.8-1.5 H = CREAT) CALCIUM (test code = 8.6 mg/dL 8.8-10.2 L CA) CBC W/AUTO [id number] 07:17:00 Test Item Value Reference Range Interpretation Comments WHITE BLOOD CELL (test code = 9.6 x10 3/uL 4.8-10.8 N WBC) RED BLOOD CELL (test code = 2.60 x10 6/uL 4.70-6.10 L RBC) HEMOGLOBIN (test code = HGB) 8.0 g/dL 14.5-20 L HEMATOCRIT (test code = HCT) 25.4 % 42.0-52.0 L MEAN CELL VOLUME (test code = 97.7 fL 80.0-94.0 H MCV) MEAN CELL HGB (test code = MCH) 30.8 pg 27-31 N MEAN CELL HGB CONCENTRATION 31.5 G/DL 33-36.5 L (test code = MCHC) RED CELL DISTRIBUTION WIDTH 16.9 % 12.9-16.9 N (test code = RDW) PLATELET COUNT (test code = 261 150-440 N PLT) MEAN PLATELET VOLUME (test code 10.1 fL 8.9-12.4 N = MPV) NEUTROPHIL % (test code = NT%) 80.1 % 42.2-75.2 H LYMPHOCYTE % (test code = LY%) 7.5 % 20.5-51.1 L MONOCYTE % (test code = MO%) 9.6 % 1.7-9.3 H EOSINOPHIL % (test code = EO%) 1.0 % 0.0-7.0 N BASOPHIL % (test code = BA%) 0.3 % 0-2.5 N NEUTROPHIL # (test code = NT#) 7.71 x10 3/uL 1.80-7.70 H LYMPHOCYTE # (test code = LY#) 0.72 x10 3/uL 1.00-4.80 L MONOCYTE # (test code = MO#) 0.92 x10 3/uL 0.00-0.80 H EOSINOPHIL # (test code = EO#) 0.10 x10 3/uL 0.00-0.45 N BASOPHIL # (test code = BA#) 0.03 x10 3/uL 0.0-0.20 N PROTHROMBIN [id number] 07:52:00 Test Item Value Reference Range Interpretation Comments PROTHROMBIN TIME 35.8 SECONDS 10.3-12.9 H PATIENT (test code = PTP) INTERNATIONAL 3.06 INR UNIT 0.9-1.11 H The INR is us eful only NORMAL RATIO (test for monit oring code = INR) anticoagulant therapy.It may be unreliable in t he initial phase o f antigoagulation and in unstable patien ts. Indication for Anticoagulation Recommend ed INR 1. Prevention o f venous thomboembolism 2.0-3.0in high -risk patients; treat ment of venousthrombosi s and pulmonary embol ism aftera course o f heparin; preven tion of systemicembolis m in a variety of cond itions, including atria l fibrillation an d prothetic tissu e heart valves, 2. Pros thetic mechanical hear t valves; 2.5-3.5recurren t systemic emboli sm. BASIC METABOLIC [id number] 07:43:00 Test Item Value Reference Range Interpretation Comments SODIUM (test code = 135 MMOL/L 136-143 L NA) POTASSIUM (test code 4.5 MMOL/L 3.5-5.1 N = K) CHLORIDE (test code = 98 MMOL/L 98-107 N CL) CARBON DIOXIDE (test 24 mmol/L 24-31 N code = CO2) GLUCOSE (test code = 75 mg/dL 70-104 N GLU) BLOOD UREA NITROGEN 28.3 MG/DL 7.0-21.0 H (test code = BUN) GLOMERULAR FILTRATION 15 >60 L The es timated RATE (test code = glomerular filtration GFR) rate is compute d usingpatient ra ce, age (>18), sex, and serum creatinine. If anyof the needed data elements are mi ssing the Laboratory cannot compute an darell mation of the glomerul ar filtration rate . CREATININE (test code 4.1 mg/dL 0.8-1.5 H = CREAT) CALCIUM (test code = 8.1 mg/dL 8.8-10.2 L CA) [id number] 07:43:00 Test Item Value Reference Range Interpretation Comments MAGNESIUM (test code = MAG) 1.9 mg/dL 1.4-2.6 N CBC W/AUTO [id number] 07:15:00 Test Item Value Reference Range Interpretation Comments WHITE BLOOD CELL (test code = 8.7 x10 3/uL 4.8-10.8 N WBC) RED BLOOD CELL (test code = 2.59 x10 6/uL 4.70-6.10 L RBC) HEMOGLOBIN (test code = HGB) 8.0 g/dL 14.5-20 L HEMATOCRIT (test code = HCT) 25.6 % 42.0-52.0 L MEAN CELL VOLUME (test code = 98.8 fL 80.0-94.0 H MCV) MEAN CELL HGB (test code = MCH) 30.9 pg 27-31 N MEAN CELL HGB CONCENTRATION 31.3 G/DL 33-36.5 L (test code = MCHC) RED CELL DISTRIBUTION WIDTH 17.0 % 12.9-16.9 H (test code = RDW) PLATELET COUNT (test code = 199 150-440 N PLT) MEAN PLATELET VOLUME (test code 9.4 fL 8.9-12.4 N = MPV) NEUTROPHIL % (test code = NT%) 82.8 % 42.2-75.2 H LYMPHOCYTE % (test code = LY%) 7.0 % 20.5-51.1 L MONOCYTE % (test code = MO%) 8.1 % 1.7-9.3 N EOSINOPHIL % (test code = EO%) 0.5 % 0.0-7.0 N BASOPHIL % (test code = BA%) 0.3 % 0-2.5 N NEUTROPHIL # (test code = NT#) 7.18 x10 3/uL 1.80-7.70 N LYMPHOCYTE # (test code = LY#) 0.61 x10 3/uL 1.00-4.80 L MONOCYTE # (test code = MO#) 0.70 x10 3/uL 0.00-0.80 N EOSINOPHIL # (test code = EO#) 0.04 x10 3/uL 0.00-0.45 N BASOPHIL # (test code = BA#) 0.03 x10 3/uL 0.0-0.20 N BASIC METABOLIC [id number] 06:33:00 Test Item Value Reference Range Interpretation Comments SODIUM (test code = 138 MMOL/L 136-143 N NA) POTASSIUM (test code 3.7 MMOL/L 3.5-5.1 N = K) CHLORIDE (test code = 99 MMOL/L 98-107 N CL) CARBON DIOXIDE (test 26 mmol/L 24-31 N code = CO2) GLUCOSE (test code = 67 mg/dL 70-104 L GLU) BLOOD UREA NITROGEN 39.8 MG/DL 7.0-21.0 H (test code = BUN) GLOMERULAR FILTRATION 10 >60 L The es timated RATE (test code = glomerular filtration GFR) rate is compute d usingpatient ra ce, age (>18), sex, and serum creatinine. If anyof the needed data elements are mi ssing the Laboratory cannot compute an darlel mation of the glomerul ar filtration rate . CREATININE (test code 5.7 mg/dL 0.8-1.5 H = CREAT) CALCIUM (test code = 8.0 mg/dL 8.8-10.2 L CA) CBC W/AUTO [id number] 06:24:00 Test Item Value Reference Range Interpretation Comments WHITE BLOOD CELL (test code = 6.8 x10 3/uL 4.8-10.8 N WBC) RED BLOOD CELL (test code = 2.59 x10 6/uL 4.70-6.10 L RBC) HEMOGLOBIN (test code = HGB) 7.9 g/dL 14.5-20 L HEMATOCRIT (test code = HCT) 25.2 % 42.0-52.0 L MEAN CELL VOLUME (test code = 97.3 fL 80.0-94.0 H MCV) MEAN CELL HGB (test code = MCH) 30.5 pg 27-31 N MEAN CELL HGB CONCENTRATION 31.3 G/DL 33-36.5 L (test code = MCHC) RED CELL DISTRIBUTION WIDTH 17.1 % 12.9-16.9 H (test code = RDW) PLATELET COUNT (test code = 202 150-440 N PLT) MEAN PLATELET VOLUME (test code 9.7 fL 8.9-12.4 N = MPV) NEUTROPHIL % (test code = NT%) 74.4 % 42.2-75.2 N LYMPHOCYTE % (test code = LY%) 11.9 % 20.5-51.1 L MONOCYTE % (test code = MO%) 10.8 % 1.7-9.3 H EOSINOPHIL % (test code = EO%) 1.0 % 0.0-7.0 N BASOPHIL % (test code = BA%) 0.3 % 0-2.5 N NEUTROPHIL # (test code = NT#) 5.02 x10 3/uL 1.80-7.70 N LYMPHOCYTE # (test code = LY#) 0.80 x10 3/uL 1.00-4.80 L MONOCYTE # (test code = MO#) 0.73 x10 3/uL 0.00-0.80 N EOSINOPHIL # (test code = EO#) 0.07 x10 3/uL 0.00-0.45 N BASOPHIL # (test code = BA#) 0.02 x10 3/uL 0.0-0.20 N PROTHROMBIN [id number] 06:16:00 Test Item Value Reference Range Interpretation Comments PROTHROMBIN TIME 41.7 SECONDS 10.3-12.9 H PATIENT (test code = PTP) INTERNATIONAL 3.55 INR UNIT 0.9-1.11 H The INR is us eful only NORMAL RATIO (test for monit oring code = INR) anticoagulant therapy.It may be unreliable in t he initial phase o f antigoagulation and in unstable patien ts. Indication for Anticoagulation Recommend ed INR 1. Prevention o f venous thomboembolism 2.0-3.0in high -risk patients; treat ment of venousthrombosi s and pulmonary embol ism aftera course o f heparin; preven tion of systemicembolis m in a variety of cond itions, including atria l fibrillation an d prothetic tissu e heart valves, 2. Pros thetic mechanical hear t valves; 2.5-3.5recurren t systemic emboli sm. PROTHROMBIN [id number] 09:09:00 Test Item Value Reference Range Interpretation Comments PROTHROMBIN TIME 36.4 SECONDS 10.3-12.9 H PATIENT (test code = PTP) INTERNATIONAL 3.11 INR UNIT 0.9-1.11 H The INR is us eful only NORMAL RATIO (test for monit oring code = INR) anticoagulant therapy.It may be unreliable in t he initial phase o f antigoagulation and in unstable patien ts. Indication for Anticoagulation Recommend ed INR 1. Prevention o f venous thomboembolism 2.0-3.0in high -risk patients; treat ment of venousthrombosi s and pulmonary embol ism aftera course o f heparin; preven tion of systemicembolis m in a variety of cond itions, including atria l fibrillation an d prothetic tissu e heart valves, 2. Pros thetic mechanical hear t valves; 2.5-3.5recurren t systemic emboli sm. CBC W/AUTO [id number] 08:34:00 Test Item Value Reference Range Interpretation Comments WHITE BLOOD CELL (test code = 6.9 x10 3/uL 4.8-10.8 N WBC) RED BLOOD CELL (test code = 2.69 x10 6/uL 4.70-6.10 L RBC) HEMOGLOBIN (test code = HGB) 8.4 g/dL 14.5-20 L HEMATOCRIT (test code = HCT) 26.5 % 42.0-52.0 L MEAN CELL VOLUME (test code = 98.5 fL 80.0-94.0 H MCV) MEAN CELL HGB (test code = MCH) 31.2 pg 27-31 H MEAN CELL HGB CONCENTRATION 31.7 G/DL 33-36.5 L (test code = MCHC) RED CELL DISTRIBUTION WIDTH 17.3 % 12.9-16.9 H (test code = RDW) PLATELET COUNT (test code = 201 150-440 N PLT) MEAN PLATELET VOLUME (test code 10.0 fL 8.9-12.4 N = MPV) NEUTROPHIL % (test code = NT%) 75.3 % 42.2-75.2 H LYMPHOCYTE % (test code = LY%) 11.4 % 20.5-51.1 L MONOCYTE % (test code = MO%) 9.6 % 1.7-9.3 H EOSINOPHIL % (test code = EO%) 1.7 % 0.0-7.0 N BASOPHIL % (test code = BA%) 0.3 % 0-2.5 N NEUTROPHIL # (test code = NT#) 5.17 x10 3/uL 1.80-7.70 N LYMPHOCYTE # (test code = LY#) 0.78 x10 3/uL 1.00-4.80 L MONOCYTE # (test code = MO#) 0.66 x10 3/uL 0.00-0.80 N EOSINOPHIL # (test code = EO#) 0.12 x10 3/uL 0.00-0.45 N BASOPHIL # (test code = BA#) 0.02 x10 3/uL 0.0-0.20 N BASIC METABOLIC [id number] 08:01:00 Test Item Value Reference Range Interpretation Comments SODIUM (test code = 139 MMOL/L 136-143 N NA) POTASSIUM (test code 3.5 MMOL/L 3.5-5.1 N = K) CHLORIDE (test code = 99 MMOL/L 98-107 N CL) CARBON DIOXIDE (test 26 mmol/L 24-31 N code = CO2) GLUCOSE (test code = 56 mg/dL 70-104 L GLU) BLOOD UREA NITROGEN 28.2 MG/DL 7.0-21.0 H (test code = BUN) GLOMERULAR FILTRATION 13 >60 L The es timated RATE (test code = glomerular filtration GFR) rate is compute d usingpatient ra ce, age (>18), sex, and serum creatinine. If anyof the needed data elements are mi ssing the Laboratory cannot compute an darell mation of the glomerul ar filtration rate . CREATININE (test code 4.5 mg/dL 0.8-1.5 H = CREAT) CALCIUM (test code = 8.3 mg/dL 8.8-10.2 L CA) BASIC METABOLIC [id number] 05:44:00 Test Item Value Reference Range Interpretation Comments SODIUM (test code = 137 MMOL/L 136-143 N NA) POTASSIUM (test code 3.8 MMOL/L 3.5-5.1 N = K) CHLORIDE (test code = 98 MMOL/L 98-107 N CL) CARBON DIOXIDE (test 25 mmol/L 24-31 N code = CO2) GLUCOSE (test code = 65 mg/dL 70-104 L GLU) BLOOD UREA NITROGEN 49.3 MG/DL 7.0-21.0 H (test code = BUN) GLOMERULAR FILTRATION 8 >60 L The es timated RATE (test code = glomerular filtration GFR) rate is compute d usingpatient ra ce, age (>18), sex, and serum creatinine. If anyof the needed data elements are mi ssing the Laboratory cannot compute an darell mation of the glomerul ar filtration rate . CREATININE (test code 6.8 mg/dL 0.8-1.5 H = CREAT) CALCIUM (test code = 8.3 mg/dL 8.8-10.2 L CA) PROTHROMBIN [id number] 05:22:00 Test Item Value Reference Range Interpretation Comments PROTHROMBIN TIME 33.4 SECONDS 10.3-12.9 H PATIENT (test code = PTP) INTERNATIONAL 2.86 INR UNIT 0.9-1.11 H The INR is us eful only NORMAL RATIO (test for monit oring code = INR) anticoagulant therapy.It may be unreliable in t he initial phase o f antigoagulation and in unstable patien ts. Indication for Anticoagulation Recommend ed INR 1. Prevention o f venous thomboembolism 2.0-3.0in high -risk patients; treat ment of venousthrombosi s and pulmonary embol ism aftera course o f heparin; preven tion of systemicembolis m in a variety of cond itions, including atria l fibrillation an d prothetic tissu e heart valves, 2. Pros thetic mechanical hear t valves; 2.5-3.5recurren t systemic emboli sm. CBC W/AUTO [id number] 04:52:00 Test Item Value Reference Range Interpretation Comments WHITE BLOOD CELL (test code = 7.7 x10 3/uL 4.8-10.8 N WBC) RED BLOOD CELL (test code = 2.72 x10 6/uL 4.70-6.10 L RBC) HEMOGLOBIN (test code = HGB) 8.4 g/dL 14.5-20 L HEMATOCRIT (test code = HCT) 26.6 % 42.0-52.0 L MEAN CELL VOLUME (test code = 97.8 fL 80.0-94.0 H MCV) MEAN CELL HGB (test code = MCH) 30.9 pg 27-31 N MEAN CELL HGB CONCENTRATION 31.6 G/DL 33-36.5 L (test code = MCHC) RED CELL DISTRIBUTION WIDTH 16.9 % 12.9-16.9 N (test code = RDW) PLATELET COUNT (test code = 188 150-440 N PLT) MEAN PLATELET VOLUME (test code 9.6 fL 8.9-12.4 N = MPV) NEUTROPHIL % (test code = NT%) 79.4 % 42.2-75.2 H LYMPHOCYTE % (test code = LY%) 8.9 % 20.5-51.1 L MONOCYTE % (test code = MO%) 8.5 % 1.7-9.3 N EOSINOPHIL % (test code = EO%) 1.4 % 0.0-7.0 N BASOPHIL % (test code = BA%) 0.4 % 0-2.5 N NEUTROPHIL # (test code = NT#) 6.13 x10 3/uL 1.80-7.70 N LYMPHOCYTE # (test code = LY#) 0.69 x10 3/uL 1.00-4.80 L MONOCYTE # (test code = MO#) 0.66 x10 3/uL 0.00-0.80 N EOSINOPHIL # (test code = EO#) 0.11 x10 3/uL 0.00-0.45 N BASOPHIL # (test code = BA#) 0.03 x10 3/uL 0.0-0.20 N BASIC METABOLIC [id number] 08:19:00 Test Item Value Reference Range Interpretation Comments SODIUM (test code = 141 MMOL/L 136-143 N NA) POTASSIUM (test code 3.7 MMOL/L 3.5-5.1 N = K) CHLORIDE (test code = 103 MMOL/L 98-107 N CL) CARBON DIOXIDE (test 24 mmol/L 24-31 N code = CO2) GLUCOSE (test code = 63 mg/dL 70-104 L GLU) BLOOD UREA NITROGEN 38.0 MG/DL 7.0-21.0 H (test code = BUN) GLOMERULAR FILTRATION 24 >60 L The es timated RATE (test code = glomerular filtration GFR) rate is compute d usingpatient ra ce, age (>18), sex, and serum creatinine. If anyof the needed data elements are mi ssing the Laboratory cannot compute an darell mation of the glomerul ar filtration rate . CREATININE (test code 2.7 mg/dL 0.8-1.5 H = CREAT) CALCIUM (test code = 8.4 mg/dL 8.8-10.2 L CA) PROTHROMBIN [id number] 07:56:00 Test Item Value Reference Range Interpretation Comments PROTHROMBIN TIME 27.9 SECONDS 10.3-12.9 H PATIENT (test code = PTP) INTERNATIONAL 2.40 INR UNIT 0.9-1.11 H The INR is us eful only NORMAL RATIO (test for monit oring code = INR) anticoagulant therapy.It may be unreliable in t he initial phase o f antigoagulation and in unstable patien ts. Indication for Anticoagulation Recommend ed INR 1. Prevention o f venous thomboembolism 2.0-3.0in high -risk patients; treat ment of venousthrombosi s and pulmonary embol ism aftera course o f heparin; preven tion of systemicembolis m in a variety of cond itions, including atria l fibrillation an d prothetic tissu e heart valves, 2. Pros thetic mechanical hear t valves; 2.5-3.5recurren t systemic emboli sm. CBC W/AUTO [id number] 07:54:00 Test Item Value Reference Range Interpretation Comments WHITE BLOOD CELL (test code = 6.9 x10 3/uL 4.8-10.8 N WBC) RED BLOOD CELL (test code = 2.76 x10 6/uL 4.70-6.10 L RBC) HEMOGLOBIN (test code = HGB) 8.4 g/dL 14.5-20 L HEMATOCRIT (test code = HCT) 27.1 % 42.0-52.0 L MEAN CELL VOLUME (test code = 98.2 fL 80.0-94.0 H MCV) MEAN CELL HGB (test code = MCH) 30.4 pg 27-31 N MEAN CELL HGB CONCENTRATION 31.0 G/DL 33-36.5 L (test code = MCHC) RED CELL DISTRIBUTION WIDTH 17.0 % 12.9-16.9 H (test code = RDW) PLATELET COUNT (test code = 180 150-440 N PLT) MEAN PLATELET VOLUME (test code 9.8 fL 8.9-12.4 N = MPV) NEUTROPHIL % (test code = NT%) 74.1 % 42.2-75.2 N LYMPHOCYTE % (test code = LY%) 10.4 % 20.5-51.1 L MONOCYTE % (test code = MO%) 11.2 % 1.7-9.3 H EOSINOPHIL % (test code = EO%) 1.6 % 0.0-7.0 N BASOPHIL % (test code = BA%) 0.4 % 0-2.5 N NEUTROPHIL # (test code = NT#) 5.10 x10 3/uL 1.80-7.70 N LYMPHOCYTE # (test code = LY#) 0.72 x10 3/uL 1.00-4.80 L MONOCYTE # (test code = MO#) 0.77 x10 3/uL 0.00-0.80 N EOSINOPHIL # (test code = EO#) 0.11 x10 3/uL 0.00-0.45 N BASOPHIL # (test code = BA#) 0.03 x10 3/uL 0.0-0.20 N PROTHROMBIN [id number] 16:26:00 Test Item Value Reference Range Interpretation Comments PROTHROMBIN TIME 23.4 SECONDS 10.3-12.9 H PATIENT (test code = PTP) INTERNATIONAL 2.03 INR UNIT 0.9-1.11 H The INR is us eful only NORMAL RATIO (test for monit oring code = INR) anticoagulant therapy.It may be unreliable in t he initial phase o f antigoagulation and in unstable patien ts. Indication for Anticoagulation Recommend ed INR 1. Prevention o f venous thomboembolism 2.0-3.0in high -risk patients; treat ment of venousthrombosi s and pulmonary embol ism aftera course o f heparin; preven tion of systemicembolis m in a variety of cond itions, including atria l fibrillation an d prothetic tissu e heart valves, 2. Pros thetic mechanical hear t valves; 2.5-3.5recurren t systemic emboli sm. THROMBOPLASTIN TIME [id number] 14:57:00 Test Item Value Reference Interpretation Comments Range THROMBOPLASTIN TIME 36.0 26.0-35.9 H THIS IS THE PARTIAL (test code SECONDS RECOLLECT INTERPRETATIVE = PTT) DATA:Therapeuti c range: Unfractionated heparin:47 - 71 seconds Arga troban:1.5 to 3 times the baseline PTT BASIC METABOLIC [id number] 07:23:00 Test Item Value Reference Range Interpretation Comments SODIUM (test code = 139 MMOL/L 136-143 N NA) POTASSIUM (test code 3.6 MMOL/L 3.5-5.1 N = K) CHLORIDE (test code = 102 MMOL/L 98-107 N CL) CARBON DIOXIDE (test 29 mmol/L 24-31 N code = CO2) GLUCOSE (test code = 73 mg/dL 70-104 N GLU) BLOOD UREA NITROGEN 24.9 MG/DL 7.0-21.0 H (test code = BUN) GLOMERULAR FILTRATION 17 >60 L The es timated RATE (test code = glomerular filtration GFR) rate is compute d usingpatient ra ce, age (>18), sex, and serum creatinine. If anyof the needed data elements are mi ssing the Laboratory cannot compute an darell mation of the glomerul ar filtration rate . CREATININE (test code 3.7 mg/dL 0.8-1.5 H = CREAT) CALCIUM (test code = 8.0 mg/dL 8.8-10.2 L CA) BASIC METABOLIC [id number] 06:50:00 Test Item Value Reference Range Interpretation Comments SODIUM (test code = 139 MMOL/L 136-143 N NA) POTASSIUM (test code 3.6 MMOL/L 3.5-5.1 N = K) CHLORIDE (test code = 102 MMOL/L 98-107 N CL) CARBON DIOXIDE (test 29 mmol/L 24-31 N code = CO2) GLUCOSE (test code = 73 mg/dL 70-104 N GLU) BLOOD UREA NITROGEN MG/DL 7.0-21.0 (test code = BUN) GLOMERULAR FILTRATION 17 >60 L The es timated RATE (test code = glomerular filtration GFR) rate is compute d usingpatient ra ce, age (>18), sex, and serum creatinine. If anyof the needed data elements are mi ssing the Laboratory cannot compute an darell mation of the glomerul ar filtration rate . CREATININE (test code 3.7 mg/dL 0.8-1.5 H = CREAT) CALCIUM (test code = 8.0 mg/dL 8.8-10.2 L CA) CBC W/AUTO [id number] 06:21:00 Test Item Value Reference Range Interpretation Comments WHITE BLOOD CELL (test code = 7.7 x10 3/uL 4.8-10.8 N WBC) RED BLOOD CELL (test code = 2.68 x10 6/uL 4.70-6.10 L RBC) HEMOGLOBIN (test code = HGB) 8.4 g/dL 14.5-20 L HEMATOCRIT (test code = HCT) 26.5 % 42.0-52.0 L MEAN CELL VOLUME (test code = 98.9 fL 80.0-94.0 H MCV) MEAN CELL HGB (test code = MCH) 31.3 pg 27-31 H MEAN CELL HGB CONCENTRATION 31.7 G/DL 33-36.5 L (test code = MCHC) RED CELL DISTRIBUTION WIDTH 17.2 % 12.9-16.9 H (test code = RDW) PLATELET COUNT (test code = 174 150-440 N PLT) MEAN PLATELET VOLUME (test code 9.7 fL 8.9-12.4 N = MPV) NEUTROPHIL % (test code = NT%) 77.0 % 42.2-75.2 H LYMPHOCYTE % (test code = LY%) 10.3 % 20.5-51.1 L MONOCYTE % (test code = MO%) 9.7 % 1.7-9.3 H EOSINOPHIL % (test code = EO%) 1.7 % 0.0-7.0 N BASOPHIL % (test code = BA%) 0.3 % 0-2.5 N NEUTROPHIL # (test code = NT#) 5.93 x10 3/uL 1.80-7.70 N LYMPHOCYTE # (test code = LY#) 0.79 x10 3/uL 1.00-4.80 L MONOCYTE # (test code = MO#) 0.75 x10 3/uL 0.00-0.80 N EOSINOPHIL # (test code = EO#) 0.13 x10 3/uL 0.00-0.45 N BASOPHIL # (test code = BA#) 0.02 x10 3/uL 0.0-0.20 N BASIC METABOLIC [id number] 07:07:00 Test Item Value Reference Range Interpretation Comments SODIUM (test code = 140 MMOL/L 136-143 N NA) POTASSIUM (test code 3.8 MMOL/L 3.5-5.1 N = K) CHLORIDE (test code = 102 MMOL/L 98-107 N CL) CARBON DIOXIDE (test 28 mmol/L 24-31 N code = CO2) GLUCOSE (test code = 69 mg/dL 70-104 L GLU) BLOOD UREA NITROGEN 40.0 MG/DL 7.0-21.0 H (test code = BUN) GLOMERULAR FILTRATION 12 >60 L The es timated RATE (test code = glomerular filtration GFR) rate is compute d usingpatient ra ce, age (>18), sex, and serum creatinine. If anyof the needed data elements are mi ssing the Laboratory cannot compute an darell mation of the glomerul ar filtration rate . CREATININE (test code 5.0 mg/dL 0.8-1.5 H = CREAT) CALCIUM (test code = 8.3 mg/dL 8.8-10.2 L CA) [id number] 07:07:00 Test Item Value Reference Range Interpretation Comments MAGNESIUM (test code = MAG) 2.1 mg/dL 1.4-2.6 N PROTHROMBIN [id number] 06:56:00 Test Item Value Reference Range Interpretation Comments PROTHROMBIN TIME 19.5 SECONDS 10.3-12.9 H PATIENT (test code = PTP) INTERNATIONAL 1.70 INR UNIT 0.9-1.11 H The INR is us eful only NORMAL RATIO (test for monit oring code = INR) anticoagulant therapy.It may be unreliable in t he initial phase o f antigoagulation and in unstable patien ts. Indication for Anticoagulation Recommend ed INR 1. Prevention o f venous thomboembolism 2.0-3.0in high -risk patients; treat ment of venousthrombosi s and pulmonary embol ism aftera course o f heparin; preven tion of systemicembolis m in a variety of cond itions, including atria l fibrillation an d prothetic tissu e heart valves, 2. Pros thetic mechanical hear t valves; 2.5-3.5recurren t systemic emboli sm. CBC W/AUTO [id number] 06:51:00 Test Item Value Reference Range Interpretation Comments WHITE BLOOD CELL (test code = 7.4 x10 3/uL 4.8-10.8 N WBC) RED BLOOD CELL (test code = 2.69 x10 6/uL 4.70-6.10 L RBC) HEMOGLOBIN (test code = HGB) 8.2 g/dL 14.5-20 L HEMATOCRIT (test code = HCT) 26.6 % 42.0-52.0 L MEAN CELL VOLUME (test code = 98.9 fL 80.0-94.0 H MCV) MEAN CELL HGB (test code = MCH) 30.5 pg 27-31 N MEAN CELL HGB CONCENTRATION 30.8 G/DL 33-36.5 L (test code = MCHC) RED CELL DISTRIBUTION WIDTH 17.2 % 12.9-16.9 H (test code = RDW) PLATELET COUNT (test code = 178 150-440 N PLT) MEAN PLATELET VOLUME (test code 10.2 fL 8.9-12.4 N = MPV) NEUTROPHIL % (test code = NT%) 75.0 % 42.2-75.2 N LYMPHOCYTE % (test code = LY%) 10.6 % 20.5-51.1 L MONOCYTE % (test code = MO%) 10.9 % 1.7-9.3 H EOSINOPHIL % (test code = EO%) 2.0 % 0.0-7.0 N BASOPHIL % (test code = BA%) 0.3 % 0-2.5 N NEUTROPHIL # (test code = NT#) 5.51 x10 3/uL 1.80-7.70 N LYMPHOCYTE # (test code = LY#) 0.78 x10 3/uL 1.00-4.80 L MONOCYTE # (test code = MO#) 0.80 x10 3/uL 0.00-0.80 N EOSINOPHIL # (test code = EO#) 0.15 x10 3/uL 0.00-0.45 N BASOPHIL # (test code = BA#) 0.02 x10 3/uL 0.0-0.20 N BASIC METABOLIC [id number] 07:08:00 Test Item Value Reference Range Interpretation Comments SODIUM (test code = 138 MMOL/L 136-143 N NA) POTASSIUM (test code 3.7 MMOL/L 3.5-5.1 N = K) CHLORIDE (test code = 98 MMOL/L 98-107 N CL) CARBON DIOXIDE (test 29 mmol/L 24-31 N code = CO2) GLUCOSE (test code = 72 mg/dL 70-104 N GLU) BLOOD UREA NITROGEN 24.5 MG/DL 7.0-21.0 H (test code = BUN) GLOMERULAR FILTRATION 18 >60 L The es timated RATE (test code = glomerular filtration GFR) rate is compute d usingpatient ra ce, age (>18), sex, and serum creatinine. If anyof the needed data elements are mi ssing the Laboratory cannot compute an darell mation of the glomerul ar filtration rate . CREATININE (test code 3.4 mg/dL 0.8-1.5 H = CREAT) CALCIUM (test code = 8.1 mg/dL 8.8-10.2 L CA) CBC W/AUTO [id number] 06:56:00 Test Item Value Reference Range Interpretation Comments WHITE BLOOD CELL (test code = 7.5 x10 3/uL 4.8-10.8 N WBC) RED BLOOD CELL (test code = 2.68 x10 6/uL 4.70-6.10 L RBC) HEMOGLOBIN (test code = HGB) 8.2 g/dL 14.5-20 L HEMATOCRIT (test code = HCT) 26.6 % 42.0-52.0 L MEAN CELL VOLUME (test code = 99.3 fL 80.0-94.0 H MCV) MEAN CELL HGB (test code = MCH) 30.6 pg 27-31 N MEAN CELL HGB CONCENTRATION 30.8 G/DL 33-36.5 L (test code = MCHC) RED CELL DISTRIBUTION WIDTH 17.2 % 12.9-16.9 H (test code = RDW) PLATELET COUNT (test code = 174 150-440 N PLT) MEAN PLATELET VOLUME (test code 9.9 fL 8.9-12.4 N = MPV) NEUTROPHIL % (test code = NT%) 75.3 % 42.2-75.2 H LYMPHOCYTE % (test code = LY%) 10.2 % 20.5-51.1 L MONOCYTE % (test code = MO%) 11.4 % 1.7-9.3 H EOSINOPHIL % (test code = EO%) 1.3 % 0.0-7.0 N BASOPHIL % (test code = BA%) 0.3 % 0-2.5 N NEUTROPHIL # (test code = NT#) 5.68 x10 3/uL 1.80-7.70 N LYMPHOCYTE # (test code = LY#) 0.77 x10 3/uL 1.00-4.80 L MONOCYTE # (test code = MO#) 0.86 x10 3/uL 0.00-0.80 H EOSINOPHIL # (test code = EO#) 0.10 x10 3/uL 0.00-0.45 N BASOPHIL # (test code = BA#) 0.02 x10 3/uL 0.0-0.20 N PROTHROMBIN [id number] 06:51:00 Test Item Value Reference Range Interpretation Comments PROTHROMBIN TIME 18.4 SECONDS 10.3-12.9 H PATIENT (test code = PTP) INTERNATIONAL 1.60 INR UNIT 0.9-1.11 H The INR is us eful only NORMAL RATIO (test for monit oring code = INR) anticoagulant therapy.It may be unreliable in t he initial phase o f antigoagulation and in unstable patien ts. Indication for Anticoagulation Recommend ed INR 1. Prevention o f venous thomboembolism 2.0-3.0in high -risk patients; treat ment of venousthrombosi s and pulmonary embol ism aftera course o f heparin; preven tion of systemicembolis m in a variety of cond itions, including atria l fibrillation an d prothetic tissu e heart valves, 2. Pros thetic mechanical hear t valves; 2.5-3.5recurren t systemic emboli sm. ACUTE HEPATITIS [id number] 16:53:00 Test Item Value Reference Range Interpretation Comments AB HEPATITIS A IGM (test NONREACTIVE NONREACTIVE code = HAVMAB) AG HEPATITIS B SURFACE NON REACTIVE NONREACTIVE (test code = HBSAG) HBSAG CONFIRMATORY (test Test not performed NONREACTIVE code = HBSAGC) AB HEPATITIS B CORE IGM NON-REACTIVE NONREACTIVE (test code = HBCMAB) AB HEPATITIS C (test code NONREACTIVE NONREACTIVE = HCVAB) ACUTE HEPATITIS [id number] 16:41:00 Test Item Value Reference Range Interpretation Comments AB HEPATITIS A IGM (test code = NONREACTIVE NONREACTIVE HAVMAB) AG HEPATITIS B SURFACE (test NON REACTIVE NONREACTIVE code = HBSAG) HBSAG CONFIRMATORY (test code = NONREACTIVE HBSAGC) AB HEPATITIS B CORE IGM (test NON-REACTIVE NONREACTIVE code = HBCMAB) AB HEPATITIS C (test code = NONREACTIVE NONREACTIVE HCVAB) ACUTE HEPATITIS [id number] 16:24:00 Test Item Value Reference Range Interpretation Comments AB HEPATITIS A IGM (test code = NONREACTIVE HAVMAB) AG HEPATITIS B SURFACE (test NON REACTIVE NONREACTIVE code = HBSAG) HBSAG CONFIRMATORY (test code = NONREACTIVE HBSAGC) AB HEPATITIS B CORE IGM (test NONREACTIVE code = HBCMAB) AB HEPATITIS C (test code = NONREACTIVE HCVAB) PROTHROMBIN [id number] 06:08:00 Test Item Value Reference Range Interpretation Comments PROTHROMBIN TIME 16.1 SECONDS 10.3-12.9 H PATIENT (test code = PTP) INTERNATIONAL 1.41 INR UNIT 0.9-1.11 H The INR is us eful only NORMAL RATIO (test for monit oring code = INR) anticoagulant therapy.It may be unreliable in t he initial phase o f antigoagulation and in unstable patien ts. Indication for Anticoagulation Recommend ed INR 1. Prevention o f venous thomboembolism 2.0-3.0in high -risk patients; treat ment of venousthrombosi s and pulmonary embol ism aftera course o f heparin; preven tion of systemicembolis m in a variety of cond itions, including atria l fibrillation an d prothetic tissu e heart valves, 2. Pros thetic mechanical hear t valves; 2.5-3.5recurren t systemic emboli sm. BASIC METABOLIC [id number] 05:48:00 Test Item Value Reference Range Interpretation Comments SODIUM (test code = 134 MMOL/L 136-143 L NA) POTASSIUM (test code 4.0 MMOL/L 3.5-5.1 N = K) CHLORIDE (test code = 94 MMOL/L 98-107 L CL) CARBON DIOXIDE (test 26 mmol/L 24-31 N code = CO2) GLUCOSE (test code = 53 mg/dL 70-104 L GLU) BLOOD UREA NITROGEN 44.7 MG/DL 7.0-21.0 H (test code = BUN) GLOMERULAR FILTRATION 10 >60 L The es timated RATE (test code = glomerular filtration GFR) rate is compute d usingpatient ra ce, age (>18), sex, and serum creatinine. If anyof the needed data elements are mi ssing the Laboratory cannot compute an darell mation of the glomerul ar filtration rate . CREATININE (test code 5.7 mg/dL 0.8-1.5 H = CREAT) CALCIUM (test code = 8.3 mg/dL 8.8-10.2 L CA) CBC W/AUTO [id number] 05:29:00 Test Item Value Reference Range Interpretation Comments WHITE BLOOD CELL (test code = 6.9 x10 3/uL 4.8-10.8 N WBC) RED BLOOD CELL (test code = 2.65 x10 6/uL 4.70-6.10 L RBC) HEMOGLOBIN (test code = HGB) 8.4 g/dL 14.5-20 L HEMATOCRIT (test code = HCT) 25.8 % 42.0-52.0 L MEAN CELL VOLUME (test code = 97.4 fL 80.0-94.0 H MCV) MEAN CELL HGB (test code = MCH) 31.7 pg 27-31 H MEAN CELL HGB CONCENTRATION 32.6 G/DL 33-36.5 L (test code = MCHC) RED CELL DISTRIBUTION WIDTH 17.2 % 12.9-16.9 H (test code = RDW) PLATELET COUNT (test code = 164 150-440 N PLT) MEAN PLATELET VOLUME (test code 10.0 fL 8.9-12.4 N = MPV) NEUTROPHIL % (test code = NT%) 77.2 % 42.2-75.2 H LYMPHOCYTE % (test code = LY%) 10.2 % 20.5-51.1 L MONOCYTE % (test code = MO%) 9.2 % 1.7-9.3 N EOSINOPHIL % (test code = EO%) 1.4 % 0.0-7.0 N BASOPHIL % (test code = BA%) 0.3 % 0-2.5 N NEUTROPHIL # (test code = NT#) 5.35 x10 3/uL 1.80-7.70 N LYMPHOCYTE # (test code = LY#) 0.71 x10 3/uL 1.00-4.80 L MONOCYTE # (test code = MO#) 0.64 x10 3/uL 0.00-0.80 N EOSINOPHIL # (test code = EO#) 0.10 x10 3/uL 0.00-0.45 N BASOPHIL # (test code = BA#) 0.02 x10 3/uL 0.0-0.20 N CBC W/AUTO [id number] 07:31:00 Test Item Value Reference Range Interpretation Comments WHITE BLOOD CELL (test code = 7.0 x10 3/uL 4.8-10.8 N WBC) RED BLOOD CELL (test code = 2.68 x10 6/uL 4.70-6.10 L RBC) HEMOGLOBIN (test code = HGB) 8.3 g/dL 14.5-20 L HEMATOCRIT (test code = HCT) 26.7 % 42.0-52.0 L MEAN CELL VOLUME (test code = 99.6 fL 80.0-94.0 H MCV) MEAN CELL HGB (test code = MCH) 31.0 pg 27-31 N MEAN CELL HGB CONCENTRATION 31.1 G/DL 33-36.5 L (test code = MCHC) RED CELL DISTRIBUTION WIDTH 17.2 % 12.9-16.9 H (test code = RDW) PLATELET COUNT (test code = 168 150-440 N PLT) MEAN PLATELET VOLUME (test code 9.9 fL 8.9-12.4 N = MPV) NEUTROPHIL % (test code = NT%) 74.6 % 42.2-75.2 N LYMPHOCYTE % (test code = LY%) 11.4 % 20.5-51.1 L MONOCYTE % (test code = MO%) 9.6 % 1.7-9.3 H EOSINOPHIL % (test code = EO%) 1.9 % 0.0-7.0 N BASOPHIL % (test code = BA%) 0.4 % 0-2.5 N NEUTROPHIL # (test code = NT#) 5.21 x10 3/uL 1.80-7.70 N LYMPHOCYTE # (test code = LY#) 0.80 x10 3/uL 1.00-4.80 L MONOCYTE # (test code = MO#) 0.67 x10 3/uL 0.00-0.80 N EOSINOPHIL # (test code = EO#) 0.13 x10 3/uL 0.00-0.45 N BASOPHIL # (test code = BA#) 0.03 x10 3/uL 0.0-0.20 N PROTHROMBIN [id number] 07:29:00 Test Item Value Reference Range Interpretation Comments PROTHROMBIN TIME 16.3 SECONDS 10.3-12.9 H PATIENT (test code = PTP) INTERNATIONAL 1.43 INR UNIT 0.9-1.11 H The INR is us eful only NORMAL RATIO (test for monit oring code = INR) anticoagulant therapy.It may be unreliable in t he initial phase o f antigoagulation and in unstable patien ts. Indication for Anticoagulation Recommend ed INR 1. Prevention o f venous thomboembolism 2.0-3.0in high -risk patients; treat ment of venousthrombosi s and pulmonary embol ism aftera course o f heparin; preven tion of systemicembolis m in a variety of cond itions, including atria l fibrillation an d prothetic tissu e heart valves, 2. Pros thetic mechanical hear t valves; 2.5-3.5recurren t systemic emboli sm. BASIC METABOLIC [id number] 07:21:00 Test Item Value Reference Range Interpretation Comments SODIUM (test code = 137 MMOL/L 136-143 N NA) POTASSIUM (test code 3.6 MMOL/L 3.5-5.1 N = K) CHLORIDE (test code = 97 MMOL/L 98-107 L CL) CARBON DIOXIDE (test 29 mmol/L 24-31 N code = CO2) GLUCOSE (test code = 69 mg/dL 70-104 L GLU) BLOOD UREA NITROGEN 30.7 MG/DL 7.0-21.0 H (test code = BUN) GLOMERULAR FILTRATION 15 >60 L The es timated RATE (test code = glomerular filtration GFR) rate is compute d usingpatient ra ce, age (>18), sex, and serum creatinine. If anyof the needed data elements are mi ssing the Laboratory cannot compute an darell mation of the glomerul ar filtration rate . CREATININE (test code 4.0 mg/dL 0.8-1.5 H = CREAT) CALCIUM (test code = 8.3 mg/dL 8.8-10.2 L CA) AFB culture + smear (non-sputum)2020-03-04 10:51:00 Test Item Value Reference Range Interpretation Comments Result (test code = No acid-fast bacilli 6463-4) isolated in 42 days AFB Smear (test code = No acid fast bacilli 66940-0) [facility]-SPUTUM[facility]2020-03-04 10:51:00 Test Item Value Reference Range Interpretation Comments CULTURE (BEAKER) (test No acid-fast bacilli code = 1095) isolated in 42 days AFB SMEAR (BEAKER) No acid fast bacilli (test code = 994) seen PROTHROMBIN [id number] 07:58:00 Test Item Value Reference Range Interpretation Comments PROTHROMBIN TIME 17.0 SECONDS 10.3-12.9 H PATIENT (test code = PTP) INTERNATIONAL 1.49 INR UNIT 0.9-1.11 H The INR is us eful only NORMAL RATIO (test for monit oring code = INR) anticoagulant therapy.It may be unreliable in t he initial phase o f antigoagulation and in unstable patien ts. Indication for Anticoagulation Recommend ed INR 1. Prevention o f venous thomboembolism 2.0-3.0in high -risk patients; treat ment of venousthrombosi s and pulmonary embol ism aftera course o f heparin; preven tion of systemicembolis m in a variety of cond itions, including atria l fibrillation an d prothetic tissu e heart valves, 2. Pros thetic mechanical hear t valves; 2.5-3.5recurren t systemic emboli sm. BASIC METABOLIC [id number] 07:25:00 Test Item Value Reference Range Interpretation Comments SODIUM (test code = 139 MMOL/L 136-143 N NA) POTASSIUM (test code 3.5 MMOL/L 3.5-5.1 N = K) CHLORIDE (test code = 99 MMOL/L 98-107 N CL) CARBON DIOXIDE (test 26 mmol/L 24-31 N code = CO2) GLUCOSE (test code = 81 mg/dL 70-104 N GLU) BLOOD UREA NITROGEN 39.2 MG/DL 7.0-21.0 H (test code = BUN) GLOMERULAR FILTRATION 13 >60 L The es timated RATE (test code = glomerular filtration GFR) rate is compute d usingpatient ra ce, age (>18), sex, and serum creatinine. If anyof the needed data elements are mi ssing the Laboratory cannot compute an darell mation of the glomerul ar filtration rate . CREATININE (test code 4.7 mg/dL 0.8-1.5 H = CREAT) CALCIUM (test code = 8.5 mg/dL 8.8-10.2 L CA) PROTHROMBIN [id number] 06:42:00 Test Item Value Reference Range Interpretation Comments PROTHROMBIN TIME 17.1 SECONDS 10.3-12.9 H PATIENT (test code = PTP) INTERNATIONAL 1.49 INR UNIT 0.9-1.11 H The INR is us eful only NORMAL RATIO (test for monit oring code = INR) anticoagulant therapy.It may be unreliable in t he initial phase o f antigoagulation and in unstable patien ts. Indication for Anticoagulation Recommend ed INR 1. Prevention o f venous thomboembolism 2.0-3.0in high -risk patients; treat ment of venousthrombosi s and pulmonary embol ism aftera course o f heparin; preven tion of systemicembolis m in a variety of cond itions, including atria l fibrillation an d prothetic tissu e heart valves, 2. Pros thetic mechanical hear t valves; 2.5-3.5recurren t systemic emboli sm. CBC W/AUTO [id number] 06:38:00 Test Item Value Reference Range Interpretation Comments WHITE BLOOD CELL (test code = 7.2 x10 3/uL 4.8-10.8 N WBC) RED BLOOD CELL (test code = 2.77 x10 6/uL 4.70-6.10 L RBC) HEMOGLOBIN (test code = HGB) 8.4 g/dL 14.5-20 L HEMATOCRIT (test code = HCT) 27.7 % 42.0-52.0 L MEAN CELL VOLUME (test code = 100.0 fL 80.0-94.0 H MCV) MEAN CELL HGB (test code = MCH) 30.3 pg 27-31 N MEAN CELL HGB CONCENTRATION 30.3 G/DL 33-36.5 L (test code = MCHC) RED CELL DISTRIBUTION WIDTH 17.3 % 12.9-16.9 H (test code = RDW) PLATELET COUNT (test code = 176 150-440 N PLT) MEAN PLATELET VOLUME (test code 9.8 fL 8.9-12.4 N = MPV) NEUTROPHIL % (test code = NT%) 76.4 % 42.2-75.2 H LYMPHOCYTE % (test code = LY%) 10.2 % 20.5-51.1 L MONOCYTE % (test code = MO%) 9.8 % 1.7-9.3 H EOSINOPHIL % (test code = EO%) 2.4 % 0.0-7.0 N BASOPHIL % (test code = BA%) 0.1 % 0-2.5 N NEUTROPHIL # (test code = NT#) 5.46 x10 3/uL 1.80-7.70 N LYMPHOCYTE # (test code = LY#) 0.73 x10 3/uL 1.00-4.80 L MONOCYTE # (test code = MO#) 0.70 x10 3/uL 0.00-0.80 N EOSINOPHIL # (test code = EO#) 0.17 x10 3/uL 0.00-0.45 N BASOPHIL # (test code = BA#) 0.01 x10 3/uL 0.0-0.20 N - XR CHEST 1 [id number] 11:50:00Patient Name: STEVE GAMEZ Unit No: [id number] EXAMS: CPT CODE: [id number] XR CHEST 1 V 50500 EXAM: XR Chest 1 View INDICATION: CHF LOCATION CODE: A 1 COMPARISON: None available. TECHNIQUE: Frontal view of the chest was obtained. 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 There is aleft central venous catheter with its tip at the atrial caval junction. There are bilateral perihilar opacities with increased pulmonary vascular prominence. Small left pleural effusion is present. The cardiomediastinal silhouette is enlarged. No acute osseous abnormality is identified. IMPRESSION: 1. Cardiomegaly with pulmonary edema. 2. Small left pleural effusion. at 1150 Reported and signed by: LISA SHARMA M.D. CC: Aubrey James MD; [employer] MD Technologist: Gerber Abarca Time: DAP (Gy m2): Air Kerma (mGy): Trscr Dt/Tm: 03/02/2020 (1150) by:[email or web address] Printed Date/Time: 03/02/2020 (1153) Name: STEVE VACA [facility] Phys: JERRY - Aubrey James MD [address] : 1935 Age: 84 Sex: [place] [address] Loc: WENDYSHAYLA Exam Date: 03/02/2020 Status: REG REF PH: FAX: PAGE 1 Signed [id number] - GLYCOSYLATED [id number] 08:03:00 Test Item Value Reference Range Interpretation Comments GLYCOSYLATED HEMOGLOBIN 4.3 % 0.0-5.6 N INTE RPRETATIVE (HA1C) (test code = DATA:HGB A1C levels above GLYHGB) the established reference range are anind ication of hyperglycemia d uring the preceeding 2 - 3months orlonger. HBA1C levels may reach 20% o r higher in poorlycontro lled diabetes. Thera peutic action is sugge sted atlevels above 8%.Diabetic pat ients with HBA1C levels be low 7% meet the goalof the [place] [employer]. No rmal: <5.7Pre-Diabete s: 5.7 6.4Diabetic: >6.5Therapeutic goal for glycemic contro l: <7.0 BASIC METABOLIC [id number] 07:13:00 Test Item Value Reference Range Interpretation Comments SODIUM (test code = 135 MMOL/L 136-143 L NA) POTASSIUM (test code 3.3 MMOL/L 3.5-5.1 L = K) CHLORIDE (test code = 98 MMOL/L 98-107 N CL) CARBON DIOXIDE (test 29 mmol/L 24-31 N code = CO2) GLUCOSE (test code = 81 mg/dL 70-104 N GLU) BLOOD UREA NITROGEN 24.4 MG/DL 7.0-21.0 H (test code = BUN) GLOMERULAR FILTRATION 20 >60 L The es timated RATE (test code = glomerular filtration GFR) rate is compute d usingpatient ra ce, age (>18), sex, and serum creatinine. If anyof the needed data elements are mi ssing the Laboratory cannot compute an darell mation of the glomerul ar filtration rate . CREATININE (test code 3.2 mg/dL 0.8-1.5 H = CREAT) CALCIUM (test code = 8.5 mg/dL 8.8-10.2 L CA) [id number] 07:13:00 Test Item Value Reference Range Interpretation Comments MAGNESIUM (test code = MAG) 2.0 mg/dL 1.4-2.6 N PROTHROMBIN [id number] 06:54:00 Test Item Value Reference Range Interpretation Comments PROTHROMBIN TIME 18.6 SECONDS 10.3-12.9 H PATIENT (test code = PTP) INTERNATIONAL 1.62 INR UNIT 0.9-1.11 H The INR is us eful only NORMAL RATIO (test for monit oring code = INR) anticoagulant therapy.It may be unreliable in t he initial phase o f antigoagulation and in unstable patien ts. Indication for Anticoagulation Recommend ed INR 1. Prevention o f venous thomboembolism 2.0-3.0in high -risk patients; treat ment of venousthrombosi s and pulmonary embol ism aftera course o f heparin; preven tion of systemicembolis m in a variety of cond itions, including atria l fibrillation an d prothetic tissu e heart valves, 2. Pros thetic mechanical hear t valves; 2.5-3.5recurren t systemic emboli sm. THROMBOPLASTIN TIME [id number] 06:54:00 Test Item Value Reference Range Interpretation Comments THROMBOPLASTIN TIME PARTIAL (test SECONDS 26.0-35.9 code = PTT) PROTHROMBIN [id number] 06:54:00 Test Item Value Reference Range Interpretation Comments PROTHROMBIN TIME 18.6 SECONDS 10.3-12.9 H PATIENT (test code = PTP) INTERNATIONAL 1.62 INR UNIT 0.9-1.11 H The INR is us eful only NORMAL RATIO (test for monit oring code = INR) anticoagulant therapy.It may be unreliable in t he initial phase o f antigoagulation and in unstable patien ts. Indication for Anticoagulation Recommend ed INR 1. Prevention o f venous thomboembolism 2.0-3.0in high -risk patients; treat ment of venousthrombosi s and pulmonary embol ism aftera course o f heparin; preven tion of systemicembolis m in a variety of cond itions, including atria l fibrillation an d prothetic tissu e heart valves, 2. Pros thetic mechanical hear t valves; 2.5-3.5recurren t systemic emboli sm. THROMBOPLASTIN TIME [id number] 06:54:00 Test Item Value Reference Range Interpretation Comments THROMBOPLASTIN TIME 31.0 SECONDS 26.0-35.9 N INTERPRE TATIVE PARTIAL (test code = DATA: erapeutic PTT) range: Unfractionated heparin:47 - 71 seconds Argatroban:1.5 to 3 times the basel ine PTT CBC W/AUTO [id number] 06:53:00 Test Item Value Reference Range Interpretation Comments WHITE BLOOD CELL (test code = 6.6 x10 3/uL 4.8-10.8 N WBC) RED BLOOD CELL (test code = 2.71 x10 6/uL 4.70-6.10 L RBC) HEMOGLOBIN (test code = HGB) 8.4 g/dL 14.5-20 L HEMATOCRIT (test code = HCT) 27.2 % 42.0-52.0 L MEAN CELL VOLUME (test code = 100.4 fL 80.0-94.0 H MCV) MEAN CELL HGB (test code = MCH) 31.0 pg 27-31 N MEAN CELL HGB CONCENTRATION 30.9 G/DL 33-36.5 L (test code = MCHC) RED CELL DISTRIBUTION WIDTH 17.7 % 12.9-16.9 H (test code = RDW) PLATELET COUNT (test code = 173 150-440 N PLT) MEAN PLATELET VOLUME (test code 9.9 fL 8.9-12.4 N = MPV) NEUTROPHIL % (test code = NT%) 76.6 % 42.2-75.2 H LYMPHOCYTE % (test code = LY%) 9.4 % 20.5-51.1 L MONOCYTE % (test code = MO%) 10.2 % 1.7-9.3 H EOSINOPHIL % (test code = EO%) 2.6 % 0.0-7.0 N BASOPHIL % (test code = BA%) 0.3 % 0-2.5 N NEUTROPHIL # (test code = NT#) 5.06 x10 3/uL 1.80-7.70 N LYMPHOCYTE # (test code = LY#) 0.62 x10 3/uL 1.00-4.80 L MONOCYTE # (test code = MO#) 0.67 x10 3/uL 0.00-0.80 N EOSINOPHIL # (test code = EO#) 0.17 x10 3/uL 0.00-0.45 N BASOPHIL # (test code = BA#) 0.02 x10 3/uL 0.0-0.20 N ACUTE HEPATITIS [id number] 13:52:00 Test Item Value Reference Range Interpretation Comments AB HEPATITIS A IGM (test NONREACTIVE NONREACTIVE code = HAVMAB) AG HEPATITIS B SURFACE NON REACTIVE NONREACTIVE (test code = HBSAG) HBSAG CONFIRMATORY (test Test not performed NONREACTIVE code = HBSAGC) AB HEPATITIS B CORE IGM NON-REACTIVE NONREACTIVE (test code = HBCMAB) AB HEPATITIS C (test code NONREACTIVE NONREACTIVE = HCVAB) ACUTE HEPATITIS [id number] 13:50:00 Test Item Value Reference Range Interpretation Comments AB HEPATITIS A IGM (test code = NONREACTIVE NONREACTIVE HAVMAB) AG HEPATITIS B SURFACE (test NON REACTIVE NONREACTIVE code = HBSAG) HBSAG CONFIRMATORY (test code = NONREACTIVE HBSAGC) AB HEPATITIS B CORE IGM (test NON-REACTIVE NONREACTIVE code = HBCMAB) AB HEPATITIS C (test code = NONREACTIVE NONREACTIVE HCVAB) ACUTE HEPATITIS [id number] 13:12:00 Test Item Value Reference Range Interpretation Comments AB HEPATITIS A IGM (test code = NONREACTIVE HAVMAB) AG HEPATITIS B SURFACE (test NON REACTIVE NONREACTIVE code = HBSAG) HBSAG CONFIRMATORY (test code = NONREACTIVE HBSAGC) AB HEPATITIS B CORE IGM (test NONREACTIVE code = HBCMAB) AB HEPATITIS C (test code = NONREACTIVE HCVAB) BASIC METABOLIC [id number] 06:01:00 Test Item Value Reference Range Interpretation Comments SODIUM (test code = 136 MMOL/L 136-143 N NA) POTASSIUM (test code 4.0 MMOL/L 3.5-5.1 N = K) CHLORIDE (test code = 98 MMOL/L 98-107 N CL) CARBON DIOXIDE (test 25 mmol/L 24-31 N code = CO2) GLUCOSE (test code = 194 mg/dL 70-104 H GLU) BLOOD UREA NITROGEN 35.5 MG/DL 7.0-21.0 H (test code = BUN) GLOMERULAR FILTRATION 13 >60 L The es timated RATE (test code = glomerular filtration GFR) rate is compute d usingpatient ra ce, age (>18), sex, and serum creatinine. If anyof the needed data elements are mi ssing the Laboratory cannot compute an darell mation of the glomerul ar filtration rate . CREATININE (test code 4.7 mg/dL 0.8-1.5 H = CREAT) CALCIUM (test code = 8.5 mg/dL 8.8-10.2 L CA) PROTHROMBIN [id number] 05:46:00 Test Item Value Reference Range Interpretation Comments PROTHROMBIN TIME 20.0 SECONDS 10.3-12.9 H PATIENT (test code = PTP) INTERNATIONAL 1.74 INR UNIT 0.9-1.11 H The INR is us eful only NORMAL RATIO (test for monit oring code = INR) anticoagulant therapy.It may be unreliable in t he initial phase o f antigoagulation and in unstable patien ts. Indication for Anticoagulation Recommend ed INR 1. Prevention o f venous thomboembolism 2.0-3.0in high -risk patients; treat ment of venousthrombosi s and pulmonary embol ism aftera course o f heparin; preven tion of systemicembolis m in a variety of cond itions, including atria l fibrillation an d prothetic tissu e heart valves, 2. Pros thetic mechanical hear t valves; 2.5-3.5recurren t systemic emboli sm. CBC W/AUTO [id number] 05:34:00 Test Item Value Reference Range Interpretation Comments WHITE BLOOD CELL (test code = 6.9 x10 3/uL 4.8-10.8 N WBC) RED BLOOD CELL (test code = 2.65 x10 6/uL 4.70-6.10 L RBC) HEMOGLOBIN (test code = HGB) 8.2 g/dL 14.5-20 L HEMATOCRIT (test code = HCT) 26.8 % 42.0-52.0 L MEAN CELL VOLUME (test code = 101.1 fL 80.0-94.0 H MCV) MEAN CELL HGB (test code = MCH) 30.9 pg 27-31 N MEAN CELL HGB CONCENTRATION 30.6 G/DL 33-36.5 L (test code = MCHC) RED CELL DISTRIBUTION WIDTH 17.7 % 12.9-16.9 H (test code = RDW) PLATELET COUNT (test code = 174 150-440 N PLT) MEAN PLATELET VOLUME (test code 9.9 fL 8.9-12.4 N = MPV) NEUTROPHIL % (test code = NT%) 76.9 % 42.2-75.2 H LYMPHOCYTE % (test code = LY%) 9.5 % 20.5-51.1 L MONOCYTE % (test code = MO%) 10.5 % 1.7-9.3 H EOSINOPHIL % (test code = EO%) 1.9 % 0.0-7.0 N BASOPHIL % (test code = BA%) 0.3 % 0-2.5 N NEUTROPHIL # (test code = NT#) 5.27 x10 3/uL 1.80-7.70 N LYMPHOCYTE # (test code = LY#) 0.65 x10 3/uL 1.00-4.80 L MONOCYTE # (test code = MO#) 0.72 x10 3/uL 0.00-0.80 N EOSINOPHIL # (test code = EO#) 0.13 x10 3/uL 0.00-0.45 N BASOPHIL # (test code = BA#) 0.02 x10 3/uL 0.0-0.20 N COMPREHENSIVE METABOLIC [id number] 03:30:00 Test Item Value Reference Range Interpretation Comments SODIUM (test code = 131 MMOL/L 136-143 L NA) POTASSIUM (test code 3.7 MMOL/L 3.5-5.1 N = K) CHLORIDE (test code = 94 MMOL/L 98-107 L CL) CARBON DIOXIDE (test 27 mmol/L 24-31 N code = CO2) GLUCOSE (test code = 330 mg/dL 70-104 H GLU) BLOOD UREA NITROGEN 19.1 MG/DL 7.0-21.0 N (test code = BUN) GLOMERULAR FILTRATION 22 >60 L The es timated RATE (test code = glomerular filtration GFR) rate is compute d usingpatient ra ce, age (>18), sex, and serum creatinine. If anyof the needed data elements are mi ssing the Laboratory cannot compute an darell mation of the glomerul ar filtration rate . CREATININE (test code 2.9 mg/dL 0.8-1.5 H = CREAT) TOTAL PROTEIN (test 5.4 g/dL 6.3-8.3 L code = PROT) ALBUMIN (test code = 2.8 G/DL 3.5-5.0 L ALB) CALCIUM (test code = 8.0 mg/dL 8.8-10.2 L CA) BILIRUBIN TOTAL (test 0.9 mg/dL 0.2-1.0 N code = BILT) SGOT/AST (test code = 27 IU/L 10-34 N AST) SGPT/ALT (test code = 35 U/L 10-44 N ALT) ALKALINE PHOSPHATASE 121 U/L 45-120 H (test code = ALKP) PROTHROMBIN [id number] 03:22:00 Test Item Value Reference Range Interpretation Comments PROTHROMBIN TIME 21.7 SECONDS 10.3-12.9 H PATIENT (test code = PTP) INTERNATIONAL 1.88 INR UNIT 0.9-1.11 H The INR is us eful only NORMAL RATIO (test for monit oring code = INR) anticoagulant therapy.It may be unreliable in t he initial phase o f antigoagulation and in unstable patien ts. Indication for Anticoagulation Recommend ed INR 1. Prevention o f venous thomboembolism 2.0-3.0in high -risk patients; treat ment of venousthrombosi s and pulmonary embol ism aftera course o f heparin; preven tion of systemicembolis m in a variety of cond itions, including atria l fibrillation an d prothetic tissu e heart valves, 2. Pros thetic mechanical hear t valves; 2.5-3.5recurren t systemic emboli sm. CBC W/AUTO [id number] 03:14:00 Test Item Value Reference Range Interpretation Comments WHITE BLOOD CELL (test code = 7.5 x10 3/uL 4.8-10.8 N WBC) RED BLOOD CELL (test code = 2.51 x10 6/uL 4.70-6.10 L RBC) HEMOGLOBIN (test code = HGB) 7.9 g/dL 14.5-20 L HEMATOCRIT (test code = HCT) 26.1 % 42.0-52.0 L MEAN CELL VOLUME (test code = 104.0 fL 80.0-94.0 H MCV) MEAN CELL HGB (test code = MCH) 31.5 pg 27-31 H MEAN CELL HGB CONCENTRATION 30.3 G/DL 33-36.5 L (test code = MCHC) RED CELL DISTRIBUTION WIDTH 18.1 % 12.9-16.9 H (test code = RDW) PLATELET COUNT (test code = 179 150-440 N PLT) MEAN PLATELET VOLUME (test code 9.8 fL 8.9-12.4 N = MPV) NEUTROPHIL % (test code = NT%) 77.9 % 42.2-75.2 H LYMPHOCYTE % (test code = LY%) 7.7 % 20.5-51.1 L MONOCYTE % (test code = MO%) 10.8 % 1.7-9.3 H EOSINOPHIL % (test code = EO%) 2.3 % 0.0-7.0 N BASOPHIL % (test code = BA%) 0.1 % 0-2.5 N NEUTROPHIL # (test code = NT#) 5.87 x10 3/uL 1.80-7.70 N LYMPHOCYTE # (test code = LY#) 0.58 x10 3/uL 1.00-4.80 L MONOCYTE # (test code = MO#) 0.81 x10 3/uL 0.00-0.80 H EOSINOPHIL # (test code = EO#) 0.17 x10 3/uL 0.00-0.45 N BASOPHIL # (test code = BA#) 0.01 x10 3/uL 0.0-0.20 N POC-Glucose [id number] 11:37:00 Test Item Value Reference Range Interpretation Comments POC-Glucose Meter (test 78 mg/dL 70-110 : TE STED AT [facility] code = 1538) [address] [facility], 770 30: Art Class Model/Techni jessica ID = [id number] for GAEL GATES Lab Interpretation (test Normal code = 11197-5) [facility] [id number] 11:37:00 Test Item Value Reference Range Interpretation Comments POC-GLUCOSE METER 78 mg/dL 70-110 : TESTED A T [facility] [address] (BEAKER) (test code = [facility], 1538) [address]: Art Class Model/Techni jessica ID = [id number] for KARMEN KIKAGAEL POCT-GLUCOSE [id number] 07:24:00 Test Item Value Reference Range Interpretation Comments POC-GLUCOSE METER 70 mg/dL 70-110 : [facility] ([facility]ER[facility] (test code = [facility], 1538) [address]: Art Class Model/Techni jessica ID = [id number] for EDUARDO PHAN Basic Metabolic [id number] 06:04:00 Test Item Value Reference Range Interpretation Comments Sodium (test code = 137 meq/L 262-316 9815-2) Potassium (test code = 4.2 meq/L 3.5-5.1 2823-3) Chloride (test code = 99 meq/L 98-107 5-0) CO2 (test code = 27 meq/L 22-29 2027-9) BUN (test code = 30 mg/dL 7-21 H 3094-0) Creatinine (test code 4.31 mg/dL 0.57-1.25 H = 2160-0) Glucose (test code = 69 mg/dL 70-105 L 2345-7) Calcium (test code = 8.3 mg/dL 8.4-10.2 L 62517-1) EGFR (test code = 13 mL/min/1.[place] [address]-9) NOT ACCURATE CREATININE CLEARANCE IN PREDICTING GLOMERULAR FILTRATION RATE . ESTIMATED GFR I S NOT APPLICABLE FOR DIALYSIS PATIENTS. JARRED (test code = JARRED) Art Class Model CHARLES Urbina Lab Interpretation Abnormal (test code = 27681-1) [facility] METABOLIC [id number] 06:04:00 Test Item Value Reference Range Interpretation Comments SODIUM (BEAKER) 137 meq/L 136-145 (test code = 381) POTASSIUM (BEAKER) 4.2 meq/L 3.5-5.1 (test code = 379) CHLORIDE (BEAKER) 99 meq/L 98-107 (test code = 382) CO2 (BEAKER) (test 27 meq/L 22-29 code = 355) BLOOD UREA NITROGEN 30 mg/dL 7-21 H (BEAKER) (test code = 354) CREATININE (BEAKER) 4.31 mg/dL 0.57-1.25 H (test code = 358) GLUCOSE RANDOM 69 mg/dL 70-105 L (BEAKER) (test code = 652) CALCIUM (BEAKER) 8.3 mg/dL 8.4-10.2 L (test code = 697) EGFR (BEAKER) (test 13 mL/min/1.73 ESTIMA MIA GFR IS code = 1092) sq m NOT ACCURATE CREATININE CLEARANCE IN PREDICTING GLOMERULAR FILTRATION RATE . ESTIMATED GFR I S NOT APPLICABLE FOR DIALYSIS PATIEN TS. Art Class Model ID - DANIEL Ramosily Prothrombin time/INR while on [id number] 05:47:00 Test Item Value Reference Range Interpretation Comments Protime (test code = 26.3 11.9- 14.2 H 5902-2) seconds INR (test code = 2.5 <=5.9 6301-6) JARRED (test code = JARRED) Effective 02/08/2019: PT Reference Range ChangeNew: 11.9-14.2 Previous: 11.7-14.7 RECOMMENDED COUMADIN/WARFARIN INR THERAPY RANGESSTANDARD DOSE: 2.0-3.0 Includes: PROPHYLAXIS for venous thrombosis, systemic embolization; TREATMENT for venous thrombosis and/or pulmonary embolus.HIGH RISK: Target INR is 2.5-3.5 for patients wiht mechanical heart valves. While on warfarin. Lab Interpretation Abnormal (test code = 78461-4) [id number] 05:47:00 Test Item Value Reference Range Interpretation Comments PROTIME (BEAKER) (test code = 26.3 seconds 11.9-14.2 H 759) INR (BEAKER) (test code = 370) 2.5 <=5.9 Effective 02/08/2019: PT Reference Range ChangeNew: 11.9-14.2 Previous: 11.7- 14.7RECOMMENDED COUMADIN/WARFARIN INR THERAPY RANGESSTANDARD DOSE: 2.0-3.0 Includes: PROPHYLAXIS for venous thrombosis, systemic embolization; TREATMENT for venous thrombosis and/or pulmonary embolus.HIGH RISK: Target INR is2.5-3.5 for patients wiht mechanical heart valves.While on warfarin.CBC (Hemogram only) 2020-02-28 05:42:00 Test Item Value Reference Range Interpretation Comments WBC (test code = 6690-2) 7.3 3.5- 10.5 K/L RBC (test code = 789-8) 2.88 4.63- 6.08 M/L L MCHC (test code = 786-4) 29.1 32.3- 36.5 GM/DL L Hematocrit (test code = 4544-3) 30.2 % 40.1-51 L MCV (test code = 787-2) 104.9 fL 79-92.2 H MCH (test code = 785-6) 30.6 pg 25.7-32.2 RDW (test code = 788-0) 18.1 % 11.6-14.4 H Platelets (test code = 777-3) 192 150- 450 K/CU MM MPV (test code = 24438-4) 9.8 fL 9.4-12.4 nRBC (test code = 413) 0 0- 0 /100 WBC Lab Interpretation (test code = Abnormal 33836-1) [facility]2020-02-28 05:42:00 Test Item Value Reference Range Interpretation Comments WHITE BLOOD CELL COUNT (BEAKER) 7.3 K/ L 3.5-10.5 (test code = 775) RED BLOOD CELL COUNT (BEAKER) 2.88 M/ L 4.63-6.08 L (test code = 761) HEMOGLOBIN (BEAKER) (test code = 8.8 GM/DL 13.7-17.5 L 410) HEMATOCRIT (BEAKER) (test code = 30.2 % 40.1-51.0 L 411) MEAN CORPUSCULAR VOLUME (BEAKER) 104.9 fL 79.0-92.2 H (test code = 753) MEAN CORPUSCULAR HEMOGLOBIN 30.6 pg 25.7-32.2 (BEAKER) (test code = 751) MEAN CORPUSCULAR HEMOGLOBIN CONC 29.1 GM/DL 32.3-36.5 L (BEAKER) (test code = 752) RED CELL DISTRIBUTION WIDTH 18.1 % 11.6-14.4 H (BEAKER) (test code = 412) PLATELET COUNT (BEAKER) (test 192 K/CU MM 150-450 code = 756) MEAN PLATELET VOLUME (BEAKER) 9.8 fL 9.4-12.4 (test code = 754) NUCLEATED RED BLOOD CELLS 0 /100 WBC 0-0 (BEAKER) (test code = 413) POCT-GLUCOSE [id number] 21:14:00 Test Item Value Reference Range Interpretation Comments POC-GLUCOSE METER 116 mg/dL 70-110 H : TESTED A T [facility] 6720 (BEAKER) (test code = [facility] Chaney [facility], 1538) [address]: Art Class Model/Techni jessica ID = [id number] for JOHANNA PERKINS POCT-GLUCOSE [id number] 18:02:00 Test Item Value Reference Range Interpretation Comments POC-GLUCOSE METER 102 mg/dL 70-110 : TESTED A T [facility] 6720 (BEAKER) (test code = [facility], 1538) 1945[address]: Art Class Model/Techni jessica ID = [id number] for GRICELDA BONILLA [facility] 2D [id number] 17:32:41Ejection FractionSLE ECHO HEARTLAB MKCKESSON CPACSInterface, External Ris In - 02/27/2020 5:37 PM CDTTransthoracic Echocardiography Report (TTE) Demographics Patient Name STEVE GAMEZ Date of Study 02/27/2020 MIGUEL Gender Male Visit Number [id number] Race Room Number 1055 Number Date of 1935 Referring Physician Anselmo Tripp Age 84 year(s) 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 Amount - 2 mlHeight: 66 inches Weight: 58.97 kg (130 lbs) BSA: 1.67 m^2 BMI: 20.98kg/m^2HR: 80 bpm BP: 100/50 mmHg Summary Limited echo study. The left ventricle is chamber size (by vol index) is severely enlarged (male - LVED vol >100ml/m2). The following segment(s) appear akinetic: apex, mid-distal septum, mid-distal anterior, apex, and mid-distal inferior. Inferolateral and ba lucas anterolateral zelaya contract normally. Global LV systolic function moderately reduced . LVEF by Cleary's method of disk assessment is moderately reduced (30-34%) . The LVEF was measured using Cleary's bi-plane method of disk . LA size is severely enlarged (>48 ml/m2) . RV chamber size is normal . Global RV systolic function is low normal . A trace of aortic regurgitation. Estimated peak systolic PA pressure is 30-35 mmHg (normal range) . The estimated RA pressure by IVC dynamics 5- 10 mmHg . A large left pleural effusion is noted. Previous Study Compared to the previous study 6-9-20 no pericardial effusion is seen, LVEF is 30-34%. Signature Findings Left Ventricle Limited echo study. The left ventricle is chamber size (by vol index) is severely enlarged (male - LVED vol >100ml/m2). Normal LV wall thickness. Septal motion is abnormal, likely related to prior cardiac surgery . The following segment(s) appear akinetic: apex, mid-distal septum, mid-distal anterior, apex, and mid-distal inferior. Inferolateral and basal anterolateral zelaya contractnormally. Global LV systolic function moderately reduced . LVEF by Cleary's method of disk assessment is moderately reduced (30-34%) . The LVEF was measured using Cleary's bi-plane method of disk . LV endocardium is adequately visualized with IV ultrasound enhancing agent. Left Atrium LA size is severely enlarged (>48 ml/m2). Right Ventricle RV pacing wire is visualized . RV chamber size is normal . Global RV systolic function is low normal . Right Atrium RApacing wire is visualized . RA cavity size is normal . Aortic Valve Mild AoV cusp calcification. AoV cusp mobility is mildly decreased . A trace of aortic regurgitation. Mitral Valve Mild mitral annular calcification. Mild MV leaflet calcification. Tricuspid Valve A trace of tricuspid regurgitation. TV structure is normal. Estimated peak systolic PA pressure is 30-35 mmHg (normal range) . Pulmonic Valve PV is not well visualized. Aorta Aortic root size (SInus of Valsalva diameter) is borderline dilated . Pericardium No significant pericardial effusion is visualized. IVC/SVC/PA/PV/Pleural A large left pleural effusion is noted. The estimated RA pressure [...] Vol. (Sngl Plane): 38.2 ml Aorta Ao RootS of Shruthi.: 3.49 cm Doppler/Quantitative Measurements Aortic Valve Peak Velocity: 1.39 m/s Mean Velocity: 1.04 m/s Peak Gradient: 7.78 mmHg Mean Gradient: 4.67 mmHg AV Area (continuity): 2.6 cm^2 Area (2D): 2.69 cm^2 AV VTI: 24.46 cm AV DVI: 0.83 LVOT PeakVelocity: 1.08 m/s Peak Gradient: 4.7 mmHg Mean Velocity: 0.73 m/s Mean Gradient: 2.52 mmHg LVOT Diameter: 2 cm LVOT VTI: 20.24 cm LVOT Area: 3.14 cm^2 LVOT SV:63.55 ml LVOT CO: 5.08 l/min LVOT CI: 3.04 l/min/m^2 Tricuspid Valve TR Velocity: 2.49 m/s TR Gradient: 24.74 mmHgKaiser Permanente [facility] CenterPOCT- GLUCOSE [id number] 13:26:00 Test Item Value Reference Range Interpretation Comments POC-GLUCOSE METER 99 mg/dL 70-110 : TESTED A T [facility] 6720 (BEAKER) (test code = [facility], 1538) 40482: Art Class Model/Techni jessica ID = [id number] for ALYSSA SHEN POCT-GLUCOSE [id number] 07:23:00 Test Item Value Reference Range Interpretation Comments POC-GLUCOSE METER 70 mg/dL 70-110 : TESTED A T [facility] 6720 (BEAKER) (test code = [facility], 1538) 838[address]: Art Class Model/Techni jessica ID = [id number] for ALYSSA SHEN PROTHROMBIN [id number] 06:43:00 Test Item Value Reference Range Interpretation Comments PROTIME (FERAKER) (test code = 30.1 seconds 11.9-14.2 H 759) INR (BEAKER) (test code = 370) 3.0 <=5.9 Effective 02/08/2019: PT Reference Range ChangeNew: 11.9-14.2 Previous: 11.7- 14.7RECOMMENDED COUMADIN/WARFARIN INR THERAPY RANGESSTANDARD DOSE: 2.0-3.0 Includes: PROPHYLAXIS for venous thrombosis, systemic embolization; TREATMENT for venous thrombosis and/or pulmonary embolus.HIGH RISK: Target INR is2.5-3.5 for patients wiht mechanical heart valves.While on warfarin.BASIC METABOLIC [id number] 06:13:00 Test Item Value Reference Range Interpretation Comments SODIUM (BEAKER) 136 meq/L 136-145 (test code = 381) POTASSIUM (BEAKER) 3.8 meq/L 3.5-5.1 (test code = 379) CHLORIDE (BEAKER) 101 meq/L 98-107 (test code = 382) CO2 (BEAKER) (test 29 meq/L 22-29 code = 355) BLOOD UREA NITROGEN 17 mg/dL 7-21 (BEAKER) (test code = 354) CREATININE (BEAKER) 2.79 mg/dL 0.57-1.25 H (test code = 358) GLUCOSE RANDOM 72 mg/dL 70-105 (BEAKER) (test code = 652) CALCIUM (BEAKER) 8.2 mg/dL 8.4-10.2 L (test code = 697) EGFR (BEAKER) (test 22 mL/min/1.73 ESTIMA MAI GFR IS code = 1092) sq m NOT ACCURATE CREATININE CLEARANCE IN PREDICTING GLOMERULAR FILTRATION RATE . ESTIMATED GFR I S NOT APPLICABLE FOR DIALYSIS PATIEN TS. Art Class Model ID - DEANDRE [facility] (HEMOGRAM ONLY)2020-02-27 05:26:00 Test Item Value Reference Range Interpretation Comments WHITE BLOOD CELL COUNT (BEAKER) 7.3 K/ L 3.5-10.5 (test code = 775) RED BLOOD CELL COUNT (BEAKER) 2.77 M/ L 4.63-6.08 L (test code = 761) HEMOGLOBIN (BEAKER) (test code = 8.7 GM/DL 13.7-17.5 L 410) HEMATOCRIT (BEAKER) (test code = 28.6 % 40.1-51.0 L 411) MEAN CORPUSCULAR VOLUME (BEAKER) 103.2 fL 79.0-92.2 H (test code = 753) MEAN CORPUSCULAR HEMOGLOBIN 31.4 pg 25.7-32.2 (BEAKER) (test code = 751) MEAN CORPUSCULAR HEMOGLOBIN CONC 30.4 GM/DL 32.3-36.5 L (BEAKER) (test code = 752) RED CELL DISTRIBUTION WIDTH 17.8 % 11.6-14.4 H (BEAKER) (test code = 412) PLATELET COUNT (BEAKER) (test 174 K/CU MM 150-450 code = 756) MEAN PLATELET VOLUME (BEAKER) 9.8 fL 9.4-12.4 (test code = 754) NUCLEATED RED BLOOD CELLS 0 /100 WBC 0-0 (BEAKER) (test code = 413) POCT-GLUCOSE [id number] 21:20:00 Test Item Value Reference Range Interpretation Comments POC-GLUCOSE METER 116 mg/dL 70-110 H : TESTED A T [facility] 6720 ([employer]) (test code = AR[facility] MACI[place], 1538) 89765: Art Class Model/Techni jessica ID = [id number] for JOHANNA PERKINS HEMODIALYSIS [id number] 20:30:00Leodan James RN 02/26/2020 8:31 PMLab Results Component Value Date GLUCOSE 74 02/26/2020 CALCIUM 8.2 (L) 02/26/2020 NA 135 (L) 02/26/2020 K 4.2 02/26/2020 CO2 26 02/26/2020 CL 99 02/26/2020 BUN 43 (H) 02/26/2020 CREATININE 5.43 (H) 02/26/2020 Lab Results Component Value Date WBC 8.1 02/26/2020 HGB 8.5 (L) 02/26/2020 HCT 27.9 (L) 02/26/2020 MCV 102.6 (H) 02/26/2020 PLT 176 02/26/2020 HBSAg - Nonreactive 02/22/2020 - S/P Hemodialysis x 4 hours. - Removed 1 L as tolerated. - Daniel atment tolerated well. Asymptomatic through out procedure - AVF(+) B/T. No S/Sx of infection noted. - Consent verified prior to initiation of treatment. - Report given to DANIEL Waters RNCHI [facility] CenterPOCT[facility] GLU[facility]SE [id number] 12:02:00 Test Item Value Reference Range Interpretation Comments POC-GLUCOSE METER 112 mg/dL 70-110 H : TESTED A T [facility] 6720 ([employer]) (test code = [facility] [place], 1538) 907[address]: Art Class Model/Techni jessica ID = [id number] for GRICELDA BONILLA POCT-GLUCOSE [id number] 08:15:00 Test Item Value Reference Range Interpretation Comments POC-GLUCOSE METER 92 mg/dL 70-110 : TESTED A T [facility] 6720 (PIERRE) (test code = [facility] [place], 1538) 99996: Art Class Model/Techni jessica ID = [id number] for ALYSSA SHEN Arterial Doppler leg, [id number] 07:45:49Ejection FractionSLE ECHO HEARTLAB MKCKESSON CPACS Left Impression1. The common femoral, profunda femoral, superficial femoral, popliteal,posterior tibial, peroneal and anterior tibial arteries are patent withtriphasic/biphasic Doppler waveforms and diffuse plaque throughout.2. 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 The posterior tibial and peroneal arteries are heavily calcified.4. Collateral flow is visualized throughout. Conclusions Summary Duplex imaging and Doppler miles lysis were performed on the left lower extremity. Adequate Doppler waveforms were obtained. The common femoral, profunda femoral, superficial femoral, popliteal, posterior tibial, peroneal and anteriortibial arteries were patent with triphasic/biphasic Doppler waveforms and diffuse plaque throughout.There was stenosis in the distal superficial femoral artery. The posterior tibial and peroneal arteries were heavily calcified. Collateral flow was visualized throughout. Signature Velocities are measured in cm/s ; Diameters are measured in cm LE Duplex Measurements Right Left + + + -----+ + + + + + + !Location ! !PSV !EDV !Waveform ! !PSV !EDV !Waveform ! + + + + + + + + + + !Mid Common Femoral ! !77 ! ! ! +----- + + + + + !Prox PFA ! !74.6 ! ! ! + + + + + + !Prox SFA ! !79.4 ! ! ! + + +---- + + + !Mid SFA ! !73.1 ! ! ! + + + -+ + + !Dist SFA ! !135 ! ! ! + + + + + + !Prox Popliteal ! !86.4 ! ! ! + + + + + + !Dist Popliteal ! !71.7 ! ! ! + + + + + + !Mid ELECTRONICS SUPERVISOR ! !65.7 ! ! ! +-- + + + + + !Dist ELECTRONICS SUPERVISOR ! !51 ! ! ! + + + + + + !Prox KP ! !55.1 ! ! ! + + +- + + + !Mid KP ! !69.2 ! ! ! + + + ----+ + + !Dist KP ! !41.6 ! ! ! + + + +--------- ---------+ + !Mid Peroneal ! !39.9 ! ! ! + + + + + + !Dist Peroneal ! !71.5 ! ! ! 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 Indications for Study:Digital ischemia.Patient Status:TODAY.Study Location:Portable.Technical Quality:Adequate visualization.Risk FactorsHistory of Disease+ +----+ +!Diagnosis !Date!Comments !+ +----+ +!Hi story/Risk ! !HTN, CAD, DM, CKD, ESRD, H/o IABP, NSTEMI, CABG, !!Factors: ! !Digital Ischemia !+ +----+ +ImpressionsLeft Impression1. The common femoral, profunda femoral, superficial femoral, popliteal,posterior tibial, peroneal and anterior tibial arteries are patent withtriphasic/biphasic Doppler waveforms and diffuse plaque throughout.2. 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 The posterior tibial and peroneal arteries are heavily calcified.4. Collateral flow is visualized throughout. Conclusions Summary Duplex imaging and Doppler analysis were performed on the left lower extremity. Adequate Doppler waveforms were obtained. The common femoral, profunda femoral, superficial femoral, popliteal, posterior tibial, peroneal and anterior tibial arteries were patent with triphasic/biphasic Doppler waveforms and diffuse plaque throughout. There was stenosis in the distal superficial femoral artery. The posterior tibial and peroneal arteries were heavily calcified.Collateral flow was visualized throughout. Signature Velocities are measured in cm/s ; Diameters are measured in cmLE Duplex Measurements Right Left + + + [...] !Prox Popliteal ! !86.4 ! ! ! +--- + + + + + !Dist Popli teal ! !71.7 ! ! ! + + + + + + !Mid ELECTRONICS SUPERVISOR ! !65.7 ! ! ! + + +-- + + + !Dist ELECTRONICS SUPERVISOR ! !51 ! ! ! + + + ---+ + + !Prox KP ! !55.1 ! ! ! + + + + --------+ + !Mid KP ! !69.2 ! ! ! + + + + + + !Dist KP ! !41.6 ! ! ! + + + + + + !Mid Peroneal ! !39.9 ! ! ! + + + + + + !Dist Peroneal ! !71.5 ! ! ! + + + + + +[facility] Center[facility] Only(Ankle/Brachial Index)2020-02-26 07:45:25Ejection FractionSLEH ECHO HEARTLAB MKCKESSON CPACSRight Impression1. The posterior tibial and dorsalis pedis arteries are patent withtriphasic/biphasic Doppler waveforms.2. The PT pressure is 106 mmHgwith an RAYMOND of 0.98 and the DP pressure is 99mmHg with an RAYMOND of 0.92, within normal range.3. The great toe pressure and TBI are not obtained due to no measurabledigital flow.4. The 1st and 3rd digits have no measurable flow; the 2nd, 4th and 5thdigits have severely decreased flow by PPG waveforms.Left Impression1. The posterior tibial and dorsalis pedis arteries are patent withtriphasic/biphasic Doppler waveforms.2. The PT RAYMOND is not obtained due to non-compressible artery and the DPpressure is 92 mmHg with an RAYMOND of 0.85, within mild obstruction range.3. The great toe pressure and TBI are not obtained due to no measurabledigital flow.4. The 1st, 2nd, and 3rd digits have no measurable flow; the 4th and 5thdigits have adequate flow by PPG waveforms. Conclusions Summary Arterial pressures and Doppler waveforms were performed bilaterally. Adequate Doppler waveforms were obtained. Doppler wavefor ms were triphasic/biphasic bilaterally. The right PT and [...] had adequate flow by PPG waveforms. 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 Indications for Study:Digital ischemia.Patient Status:TODAY.Study Location:Portable.Technical Quality:Adequate visualization.Risk FactorsHistory of Disease+ +----+ +!Diagnosis !Date!Comments !+ +----+ +!Hi story/Risk ! !HTN, CAD, DM, CKD, ESRD, H/o IABP, NSTEMI, CABG, !!Factors: ! !Digital Ischemia !+ +----+ --+ImpressionsRight Impression1. The posterior tibial and dorsalis pedis arteries are patent withtriphasic/biphasic Doppler waveforms.2. The PT pressure is 106 mmHg with an RAYMOND of 0.98 and the DP pressure is 99mmHg with an RAYMOND of 0.92, within normal range.3. The great toe pressure and TBI are not obtained due to no measurabledigital flow.4. The 1st and 3rd digits have no measurable flow; the 2nd, 4thand 5thdigits have severely decreased flow by PPG waveforms.Left Impression1. The posterior tibial and dorsalis pedis arteries are patent withtriphasic/biphasic Doppler waveforms.2. The PT RAYMOND is not obtained due to non-compressible artery and the DPpressure is 92 mmHg with an RAYMOND of 0.85, within mildobstruction range.3. The great toe pressure and TBI are not obtained due to no measurabledigital flow.4. The 1st, 2nd, and 3rd digits have no measurable flow; the 4th and 5thdigits have adequate flow by PPG waveforms. Conclusions Summary Arterial pressures and Doppler waveforms were performed bilaterally. Adequate Doppler waveforms were obtained. Doppler waveforms were triphasic/biphasic bilaterally. The right PT and DP RAYMOND's were within normal range. The great toe pressure and TBI were not obtained due to no measurable digital flow. The 1st and 3rd digits had no measurable flow; the 2nd, 4th and5th digits had severely decreased flow by PPG waveforms. On the left, the PT RAYMOND was not obtained due to non-compressible artery and the DP RAYMOND was within mild obstruction range. The great toe pressureand TBI were not obtained due to no measurable digital flow. The 1st, 2nd, and 3rd digits had no measurable flow; the 4th and 5th digits had adequate flow by PPG waveforms. Signature Velocities are measured in cm/s ; Diameters are measured in [facility] POCT-GLUCOSE [id number] 07:32:00 Test Item Value Reference Range Interpretation Comments POC-GLUCOSE METER 68 mg/dL 70-110 L : [facility] (test code = [facility] [place], 1538) [address]: Art Class Model/Techni jessica ID = [id number] for ALYSSA SHEN BASIC METABOLIC [id number] 04:42:00 Test Item Value Reference Range Interpretation Comments SODIUM (BEAKER) 135 meq/L 136-145 L (test code = 381) POTASSIUM (BEAKER) 4.2 meq/L 3.5-5.1 (test code = 379) CHLORIDE (BEAKER) 99 meq/L 98-107 (test code = 382) CO2 (BEAKER) (test 26 meq/L 22-29 code = 355) BLOOD UREA NITROGEN 43 mg/dL 7-21 H (BEAKER) (test code = 354) CREATININE (BEAKER) 5.43 mg/dL 0.57-1.25 H (test code = 358) GLUCOSE RANDOM 74 mg/dL 70-105 (BEAKER) (test code = 652) CALCIUM (BEAKER) 8.2 mg/dL 8.4-10.2 L (test code = 697) EGFR (BEAKER) (test 10 mL/min/1.73 ESTIMA MAI GFR IS code = 1092) sq m NOT ACCURATE CREATININE CLEARANCE IN PREDICTING GLOMERULAR FILTRATION RATE . ESTIMATED GFR I S NOT APPLICABLE FOR DIALYSIS PATIEN TS. Art Class Model ID - PIAYA LPROTHROMBIN TIME/[id number] 04:19:00 Test Item Value Reference Range Interpretation Comments PROTIME (BEAKER) (test code = 33.7 seconds 11.9-14.2 H 759) INR (BEAKER) (test code = 370) 3.4 <=5.9 Effective 02/08/2019: PT Reference Range ChangeNew: 11.9-14.2 Previous: 11.7- 14.7RECOMMENDED COUMADIN/WARFARIN INR THERAPY RANGESSTANDARD DOSE: 2.0-3.0 Includes: PROPHYLAXIS for venous thrombosis, systemic embolization; TREATMENT for venous thrombosis and/or pulmonary embolus.HIGH RISK: Target INR is2.5-3.5 for patients wiht mechanical heart valves.While on warfarin.CBC (HEMOGRAM ONLY) 2020-02-26 03:59:00 Test Item Value Reference Range Interpretation Comments WHITE BLOOD CELL COUNT (BEAKER) 8.1 K/ L 3.5-10.5 (test code = 775) RED BLOOD CELL COUNT (BEAKER) 2.72 M/ L 4.63-6.08 L (test code = 761) HEMOGLOBIN (BEAKER) (test code = 8.5 GM/DL 13.7-17.5 L 410) HEMATOCRIT (BEAKER) (test code = 27.9 % 40.1-51.0 L 411) MEAN CORPUSCULAR VOLUME (BEAKER) 102.6 fL 79.0-92.2 H (test code = 753) MEAN CORPUSCULAR HEMOGLOBIN 31.3 pg 25.7-32.2 (BEAKER) (test code = 751) MEAN CORPUSCULAR HEMOGLOBIN CONC 30.5 GM/DL 32.3-36.5 L (BEAKER) (test code = 752) RED CELL DISTRIBUTION WIDTH 17.7 % 11.6-14.4 H (BEAKER) (test code = 412) PLATELET COUNT (BEAKER) (test 176 K/CU MM 150-450 code = 756) MEAN PLATELET VOLUME (BEAKER) 10.1 fL 9.4-12.4 (test code = 754) NUCLEATED RED BLOOD CELLS 0 /100 WBC 0-0 (BEAKER) (test code = 413) POCT-GLUCOSE [id number] 21:16:00 Test Item Value Reference Range Interpretation Comments POC-GLUCOSE METER 114 mg/dL 70-110 H : TESTED A T [facility] 6720 (BEAKER) (test code = [facility], 1538) 43620: Art Class Model/Techni jessica ID = [id number] for Alyssa Koenig POCT-GLUCOSE [id number] 17:02:00 Test Item Value Reference Range Interpretation Comments POC-GLUCOSE METER 98 mg/dL 70-110 : TESTED A T [facility] 6720 (BEAKER) (test code = [facility], 1538) 75262: Art Class Model/Techni jessica ID = [id number] for FEMI CHOI CHIISABELLE POCT-GLUCOSE [id number] 12:01:00 Test Item Value Reference Range Interpretation Comments POC-GLUCOSE METER 84 mg/dL 70-110 : TESTED A T [facility] 6720 (BEAKER) (test code = [facility] [place], 1538) 92488: Art Class Model/Techni jessica ID = [id number] for BULMARO ELLER POCT-GLUCOSE [id number] 08:14:00 Test Item Value Reference Range Interpretation Comments POC-GLUCOSE METER 71 mg/dL 70-110 : TESTED A T [facility] 6720 (BEAKER) (test code = [facility], 1538) 10887: Art Class Model/Techni jessica ID = [id number] for BULMARO ELLER BASIC METABOLIC [id number] 06:40:00 Test Item Value Reference Range Interpretation Comments SODIUM (BEAKER) 138 meq/L 136-145 (test code = 381) POTASSIUM (BEAKER) 4.0 meq/L 3.5-5.1 (test code = 379) CHLORIDE (BEAKER) 102 meq/L 98-107 (test code = 382) CO2 (BEAKER) (test 24 meq/L 22-29 code = 355) BLOOD UREA NITROGEN 29 mg/dL 7-21 H (BEAKER) (test code = 354) CREATININE (BEAKER) 4.27 mg/dL 0.57-1.25 H (test code = 358) GLUCOSE RANDOM 68 mg/dL 70-105 L (BEAKER) (test code = 652) CALCIUM (BEAKER) 8.2 mg/dL 8.4-10.2 L (test code = 697) EGFR (BEAKER) (test 13 mL/min/1.73 ESTIMA MAI GFR IS code = 1092) sq m NOT ACCURATE CREATININE CLEARANCE IN PREDICTING GLOMERULAR FILTRATION RATE . ESTIMATED GFR I S NOT APPLICABLE FOR DIALYSIS PATIEN TS. Art Class Model ID - PIAYA LCBC (HEMOGRAM ONLY)2020-02-25 06:09:00 Test Item Value Reference Range Interpretation Comments WHITE BLOOD CELL COUNT (BEAKER) 7.6 K/ L 3.5-10.5 (test code = 775) RED BLOOD CELL COUNT (BEAKER) 2.81 M/ L 4.63-6.08 L (test code = 761) HEMOGLOBIN (BEAKER) (test code = 8.8 GM/DL 13.7-17.5 L 410) HEMATOCRIT (BEAKER) (test code = 28.9 % 40.1-51.0 L 411) MEAN CORPUSCULAR VOLUME (BEAKER) 102.8 fL 79.0-92.2 H (test code = 753) MEAN CORPUSCULAR HEMOGLOBIN 31.3 pg 25.7-32.2 (BEAKER) (test code = 751) MEAN CORPUSCULAR HEMOGLOBIN CONC 30.4 GM/DL 32.3-36.5 L (BEAKER) (test code = 752) RED CELL DISTRIBUTION WIDTH 18.0 % 11.6-14.4 H (BEAKER) (test code = 412) PLATELET COUNT (BEAKER) (test 176 K/CU MM 150-450 code = 756) MEAN PLATELET VOLUME (BEAKER) 9.6 fL 9.4-12.4 (test code = 754) NUCLEATED RED BLOOD CELLS 0 /100 WBC 0-0 (BEAKER) (test code = 413) PROTHROMBIN [id number] 06:01:00 Test Item Value Reference Range Interpretation Comments PROTIME (BEAKER) (test code = 30.4 seconds 11.9-14.2 H 759) INR (BEAKER) (test code = 370) 3.0 <=5.9 Effective 02/08/2019: PT Reference Range ChangeNew: 11.9-14.2 Previous: 11.7- 14.7RECOMMENDED COUMADIN/WARFARIN INR THERAPY RANGESSTANDARD DOSE: 2.0-3.0 Includes: PROPHYLAXIS for venous thrombosis, systemic embolization; TREATMENT for venous thrombosis and/or pulmonary embolus.HIGH RISK: Target INR is2.5-3.5 for patients wiht mechanical heart valves.While on warfarin.POCT-GLUCOSE METER 2020-02-24 21:21:00 Test Item Value Reference Range Interpretation Comments POC-GLUCOSE METER 90 mg/dL 70-110 : [facility] ([employer]) (test code = [employer] [facility], 1538) 39879: Art Class Model/Techni jessica ID = [id number] for JOHANNA CHENG POCT-GLUCOSE [id number] 16:59:00 Test Item Value Reference Range Interpretation Comments POC-GLUCOSE METER 110 mg/dL 70-110 : TESTED A T [facility] 6720 ([employer]) (test code = [facility] [employer] [facility], 1538) 30219: Art Class Model/Techni jessica ID = [id number] for EDUARDO LEIGH POCT-GLUCOSE [id number] 12:28:00 Test Item Value Reference Range Interpretation Comments POC-GLUCOSE METER 96 mg/dL 70-110 : TESTED A T [facility] 6720 (BEAKER) (test code = [facility], 1538) 71432: Art Class Model/Techni jessica ID = [id number] for KEVIN PHANNDY POCT-GLUCOSE [id number] 07:45:00 Test Item Value Reference Range Interpretation Comments POC-GLUCOSE METER 74 mg/dL 70-110 : TESTED A T [facility] 6720 (BEAKER) (test code = [facility], 1538) 38676: Art Class Model/Techni jessica ID = [id number] for ALVARADO MCGUIRE, KEVINNDY POCT-GLUCOSE [id number] 07:40:00 Test Item Value Reference Range Interpretation Comments POC-GLUCOSE METER 64 mg/dL 70-110 L : TESTED A T [facility] 6720 (BEAKER) (test code = [facility], 1538) 11123: Art Class Model/Techni jessica ID = [id number] for ZAKEVIN MONTEIRONDY BASIC METABOLIC [id number] 06:10:00 Test Item Value Reference Range Interpretation Comments SODIUM (BEAKER) 139 meq/L 136-145 (test code = 381) POTASSIUM (BEAKER) 3.6 meq/L 3.5-5.1 (test code = 379) CHLORIDE (BEAKER) 102 meq/L 98-107 (test code = 382) CO2 (BEAKER) (test 28 meq/L 22-29 code = 355) BLOOD UREA NITROGEN 16 mg/dL 7-21 (BEAKER) (test code = 354) CREATININE (BEAKER) 2.65 mg/dL 0.57-1.25 H (test code = 358) GLUCOSE RANDOM 63 mg/dL 70-105 L (BEAKER) (test code = 652) CALCIUM (BEAKER) 8.4 mg/dL 8.4-10.2 (test code = 697) EGFR (BEAKER) (test 23 mL/min/1.73 ESTIMA MAI GFR IS code = 1092) sq m NOT ACCURATE CREATININE CLEARANCE IN PREDICTING GLOMERULAR FILTRATION RATE . ESTIMATED GFR I S NOT APPLICABLE FOR DIALYSIS PATIEN TS. Art Class Model ID - DEANDRE MPROTHROMBIN [id number] 05:31:00 Test Item Value Reference Range Interpretation Comments PROTIME (BEAKER) (test code = 26.0 seconds 11.9-14.2 H 759) INR (BEAKER) (test code = 370) 2.5 <=5.9 Effective 02/08/2019: PT Reference Range ChangeNew: 11.9-14.2 Previous: 11.7- 14.7RECOMMENDED COUMADIN/WARFARIN INR THERAPY RANGESSTANDARD DOSE: 2.0-3.0 Includes: PROPHYLAXIS for venous thrombosis, systemic embolization; TREATMENT for venous thrombosis and/or pulmonary embolus.HIGH RISK: Target INR is2.5-3.5 for patients wiht mechanical heart valves.While on warfarin.CBC (HEMOGRAM ONLY) 2020-02-24 05:22:00 Test Item Value Reference Range Interpretation Comments WHITE BLOOD CELL COUNT (BEAKER) 8.1 K/ L 3.5-10.5 (test code = 775) RED BLOOD CELL COUNT (BEAKER) 2.87 M/ L 4.63-6.08 L (test code = 761) HEMOGLOBIN (BEAKER) (test code = 9.1 GM/DL 13.7-17.5 L 410) HEMATOCRIT (BEAKER) (test code = 30.0 % 40.1-51.0 L 411) MEAN CORPUSCULAR VOLUME (BEAKER) 104.5 fL 79.0-92.2 H (test code = 753) MEAN CORPUSCULAR HEMOGLOBIN 31.7 pg 25.7-32.2 (BEAKER) (test code = 751) MEAN CORPUSCULAR HEMOGLOBIN CONC 30.3 GM/DL 32.3-36.5 L (BEAKER) (test code = 752) RED CELL DISTRIBUTION WIDTH 18.4 % 11.6-14.4 H (BEAKER) (test code = 412) PLATELET COUNT (BEAKER) (test 163 K/CU MM 150-450 code = 756) MEAN PLATELET VOLUME (BEAKER) 10.1 fL 9.4-12.4 (test code = 754) NUCLEATED RED BLOOD CELLS 0 /100 WBC 0-0 (BEAKER) (test code = 413) POCT-GLUCOSE [id number] 21:32:00 Test Item Value Reference Range Interpretation Comments POC-GLUCOSE METER 90 mg/dL 70-110 : TESTED A T [facility] 6720 (BEAKER) (test code = [facility], 1538) 83591: Art Class Model/Techni jessica ID = [id number] for JOHANNA CHENG POCT-GLUCOSE [id number] 16:48:00 Test Item Value Reference Range Interpretation Comments POC-GLUCOSE METER 100 mg/dL 70-110 : TESTED A T [facility] 6720 (BEAKER) (test code = [facility], 1538) 72242: Art Class Model/Techni jessica ID = [id number] for Leno Fraga BASIC METABOLIC [id number] 06:17:00 Test Item Value Reference Range Interpretation Comments SODIUM (BEAKER) 136 meq/L 136-145 (test code = 381) POTASSIUM (BEAKER) 3.8 meq/L 3.5-5.1 (test code = 379) CHLORIDE (BEAKER) 99 meq/L 98-107 (test code = 382) CO2 (BEAKER) (test 27 meq/L 22-29 code = 355) BLOOD UREA NITROGEN 28 mg/dL 7-21 H (BEAKER) (test code = 354) CREATININE (BEAKER) 4.42 mg/dL 0.57-1.25 H (test code = 358) GLUCOSE RANDOM 67 mg/dL 70-105 L (BEAKER) (test code = 652) CALCIUM (BEAKER) 8.1 mg/dL 8.4-10.2 L (test code = 697) EGFR (BEAKER) (test 13 mL/min/1.73 ESTIMA MAI GFR IS code = 1092) sq m NOT ACCURATE CREATININE CLEARANCE IN PREDICTING GLOMERULAR FILTRATION RATE . ESTIMATED GFR I S NOT APPLICABLE FOR DIALYSIS PATIEN TS. Art Class Model ID - DEANDRE MPROTHROMBIN TIME/[id number] 06:10:00 Test Item Value Reference Range Interpretation Comments PROTIME (BEAKER) (test code = 26.1 seconds 11.9-14.2 H 759) INR (BEAKER) (test code = 370) 2.5 <=5.9 Effective 02/08/2019: PT Reference Range ChangeNew: 11.9-14.2 Previous: 11.7- 14.7RECOMMENDED COUMADIN/WARFARIN INR THERAPY RANGESSTANDARD DOSE: 2.0-3.0 Includes: PROPHYLAXIS for venous thrombosis, systemic embolization; TREATMENT for venous thrombosis and/or pulmonary embolus.HIGH RISK: Target INR is2.5-3.5 for patients wiht mechanical heart valves.While on warfarin.CBC (HEMOGRAM ONLY) 2020-02-23 05:48:00 Test Item Value Reference Range Interpretation Comments WHITE BLOOD CELL COUNT (BEAKER) 8.9 K/ L 3.5-10.5 (test code = 775) RED BLOOD CELL COUNT (BEAKER) 2.57 M/ L 4.63-6.08 L (test code = 761) HEMOGLOBIN (BEAKER) (test code = 8.2 GM/DL 13.7-17.5 L 410) HEMATOCRIT (BEAKER) (test code = 26.8 % 40.1-51.0 L 411) MEAN CORPUSCULAR VOLUME (BEAKER) 104.3 fL 79.0-92.2 H (test code = 753) MEAN CORPUSCULAR HEMOGLOBIN 31.9 pg 25.7-32.2 (BEAKER) (test code = 751) MEAN CORPUSCULAR HEMOGLOBIN CONC 30.6 GM/DL 32.3-36.5 L (BEAKER) (test code = 752) RED CELL DISTRIBUTION WIDTH 18.2 % 11.6-14.4 H (BEAKER) (test code = 412) PLATELET COUNT (BEAKER) (test 149 K/CU MM 150-450 L code = 756) MEAN PLATELET VOLUME (BEAKER) 10.2 fL 9.4-12.4 (test code = 754) NUCLEATED RED BLOOD CELLS 0 /100 WBC 0-0 (BEAKER) (test code = 413) POCT-GLUCOSE [id number] 21:17:00 Test Item Value Reference Range Interpretation Comments POC-GLUCOSE METER 105 mg/dL 70-110 : TESTED A T [facility] 6720 (BEAKER) (test code = [facility], 1538) 46030: Art Class Model/Techni jessica ID = [id number] for FABI ISABEL SE POCT-GLUCOSE [id number] 15:58:00 Test Item Value Reference Range Interpretation Comments POC-GLUCOSE METER 109 mg/dL 70-110 : TESTED A T [facility] 6720 (BEAKER) (test code = AR[facility] Chaney [facility], 1538) 76956: Art Class Model/Techni jessica ID = [id number] for GRICELDA BONILLA POCT-GLUCOSE [id number] 12:22:00 Test Item Value Reference Range Interpretation Comments POC-GLUCOSE METER 90 mg/dL 70-110 : TESTED A T [facility] 6720 (BEAKER) (test code = AR[facility] Chaney [facility], 1538) 34782: Art Class Model/Techni jessica ID = [id number] for ALYSSA SHEN POCT-GLUCOSE [id number] 07:53:00 Test Item Value Reference Range Interpretation Comments POC-GLUCOSE METER 71 mg/dL 70-110 : TESTED A T [facility] 6720 (BEAKER) (test code = AR[facility] Chaney [facility], 1538) 66633: Art Class Model/Techni jessica ID = [id number] for ALYSSA SHEN Hepatitis B surface [id number] 06:52:00 Test Item Value Reference Range Interpretation Comments HBsAg Screen (test code Nonreactive Nonreactive = 5195-3) JARRED (test code = JARRED) Specimen is considered negative for HBsAg. Lab Interpretation (test Normal code = 30524-7) [facility] [id number] 06:52:00 Test Item Value Reference Range Interpretation Comments HEPATITIS B SURFACE ANTIGEN (2) Nonreactive Nonreactive (BEAKER) (test code = 2585) Specimen is considered negative for HBsAg.BASIC METABOLIC [id number] 06:39:00 Test Item Value Reference Range Interpretation Comments SODIUM (BEAKER) 136 meq/L 136-145 (test code = 381) POTASSIUM (BEAKER) 3.5 meq/L 3.5-5.1 (test code = 379) CHLORIDE (BEAKER) 99 meq/L 98-107 (test code = 382) CO2 (BEAKER) (test 30 meq/L 22-29 H code = 355) BLOOD UREA NITROGEN 17 mg/dL 7-21 (BEAKER) (test code = 354) CREATININE (BEAKER) 2.90 mg/dL 0.57-1.25 H (test code = 358) GLUCOSE RANDOM 64 mg/dL 70-105 L (BEAKER) (test code = 652) CALCIUM (BEAKER) 8.0 mg/dL 8.4-10.2 L (test code = 697) EGFR (BEAKER) (test 21 mL/min/1.73 ESTIMA MAI GFR IS code = 1092) sq m NOT ACCURATE CREATININE CLEARANCE IN PREDICTING GLOMERULAR FILTRATION RATE . ESTIMATED GFR I S NOT APPLICABLE FOR DIALYSIS PATIEN TS. Art Class Model ID - PIAYA LPROTHROMBIN TIME/[id number] 06:09:00 Test Item Value Reference Range Interpretation Comments PROTIME (BEAKER) (test code = 22.9 seconds 11.9-14.2 H 759) INR (BEAKER) (test code = 370) 2.1 <=5.9 Effective 02/08/2019: PT Reference Range ChangeNew: 11.9-14.2 Previous: 11.7- 14.7RECOMMENDED COUMADIN/WARFARIN INR THERAPY RANGESSTANDARD DOSE: 2.0-3.0 Includes: PROPHYLAXIS for venous thrombosis, systemic embolization; TREATMENT for venous thrombosis and/or pulmonary embolus.HIGH RISK: Target INR is2.5-3.5 for patients wiht mechanical heart valves.While on warfarin.CBC (HEMOGRAM ONLY) 2020-02-22 06:00:00 Test Item Value Reference Range Interpretation Comments WHITE BLOOD CELL COUNT (BEAKER) 8.3 K/ L 3.5-10.5 (test code = 775) RED BLOOD CELL COUNT (BEAKER) 2.69 M/ L 4.63-6.08 L (test code = 761) HEMOGLOBIN (BEAKER) (test code = 8.5 GM/DL 13.7-17.5 L 410) HEMATOCRIT (BEAKER) (test code = 28.2 % 40.1-51.0 L 411) MEAN CORPUSCULAR VOLUME (BEAKER) 104.8 fL 79.0-92.2 H (test code = 753) MEAN CORPUSCULAR HEMOGLOBIN 31.6 pg 25.7-32.2 (BEAKER) (test code = 751) MEAN CORPUSCULAR HEMOGLOBIN CONC 30.1 GM/DL 32.3-36.5 L (BEAKER) (test code = 752) RED CELL DISTRIBUTION WIDTH 18.5 % 11.6-14.4 H (BEAKER) (test code = 412) PLATELET COUNT (BEAKER) (test 163 K/CU MM 150-450 code = 756) MEAN PLATELET VOLUME (BEAKER) 10.2 fL 9.4-12.4 (test code = 754) NUCLEATED RED BLOOD CELLS 0 /100 WBC 0-0 (BEAKER) (test code = 413) POCT-GLUCOSE [id number] 21:25:00 Test Item Value Reference Range Interpretation Comments POC-GLUCOSE METER 76 mg/dL 70-110 : TESTED A T [facility] 6720 (BEAKER) (test code = [facility], 1538) 77343: Art Class Model/Techni jessica ID = [id number] for FABI RIOS POCT-GLUCOSE [id number] 17:11:00 Test Item Value Reference Range Interpretation Comments POC-GLUCOSE METER 84 mg/dL 70-110 : TESTED A T [facility] 6720 (BEAKER) (test code = [facility], 153) 67242: Art Class Model/Techni jessica ID = [id number] for Leno Trujillo Fungus culture + [id number] 16:54:00 Test Item Value Reference Range Interpretation Comments Result (test code = No fungus isolated in 6463-4) 28 days Fungus Smear (test No fungi seen code = 1406) [facility] Center[facility] + [id number] 16:54:00 Test Item Value Reference Range Interpretation Comments CULTURE (BEAKER) (test No fungus isolated in code = 1095) 28 days FUNGUS SMEAR (BEAKER) No fungi seen (test code = 1406) HEPATITIS B SURFACE [id number] 10:12:00 Test Item Value Reference Range Interpretation Comments HEPATITIS B SURFACE ANTIGEN (2) Nonreactive Nonreactive (BEAKER) (test code = 2585) Specimen is considered negative for HBsAg.POCT-GLUCOSE [id number] 07:35:00 Test Item Value Reference Range Interpretation Comments POC-GLUCOSE METER 72 mg/dL 70-110 : TESTED A T [facility] 6720 (BEAKER) (test code = [facility], 153) 70266: Art Class Model/Techni jessica ID = [id number] for EDUARDO PHAN BASIC METABOLIC [id number] 06:46:00 Test Item Value Reference Range Interpretation Comments SODIUM (BEAKER) 135 meq/L 136-145 L (test code = 381) POTASSIUM (BEAKER) 3.9 meq/L 3.5-5.1 (test code = 379) CHLORIDE (BEAKER) 99 meq/L 98-107 (test code = 382) CO2 (BEAKER) (test 28 meq/L 22-29 code = 355) BLOOD UREA NITROGEN 35 mg/dL 7-21 H (BEAKER) (test code = 354) CREATININE (BEAKER) 4.93 mg/dL 0.57-1.25 H (test code = 358) GLUCOSE RANDOM 75 mg/dL 70-105 (BEAKER) (test code = 652) CALCIUM (BEAKER) 8.4 mg/dL 8.4-10.2 (test code = 697) EGFR (BEAKER) (test 11 mL/min/1.73 ESTIMA MAI GFR IS code = 1092) sq m NOT ACCURATE CREATININE CLEARANCE IN PREDICTING GLOMERULAR FILTRATION RATE . ESTIMATED GFR I S NOT APPLICABLE FOR DIALYSIS PATIEN TS. Art Class Model ID - DEANDRE MPROTHROMBIN TIME/[id number] 06:33:00 Test Item Value Reference Range Interpretation Comments PROTIME (BEAKER) (test code = 22.5 seconds 11.9-14.2 H 759) INR (BEAKER) (test code = 370) 2.0 <=5.9 Effective 02/08/2019: PT Reference Range ChangeNew: 11.9-14.2 Previous: 11.7- 14.7RECOMMENDED COUMADIN/WARFARIN INR THERAPY RANGESSTANDARD DOSE: 2.0-3.0 Includes: PROPHYLAXIS for venous thrombosis, systemic embolization; TREATMENT for venous thrombosis and/or pulmonary embolus.HIGH RISK: Target INR is2.5-3.5 for patients wiht mechanical heart valves.While on warfarin.CBC (HEMOGRAM ONLY) 2020-02-21 06:23:00 Test Item Value Reference Range Interpretation Comments WHITE BLOOD CELL COUNT (BEAKER) 9.2 K/ L 3.5-10.5 (test code = 775) RED BLOOD CELL COUNT (BEAKER) 2.84 M/ L 4.63-6.08 L (test code = 761) HEMOGLOBIN (BEAKER) (test code = 9.0 GM/DL 13.7-17.5 L 410) HEMATOCRIT (BEAKER) (test code = 29.5 % 40.1-51.0 L 411) MEAN CORPUSCULAR VOLUME (BEAKER) 103.9 fL 79.0-92.2 H (test code = 753) MEAN CORPUSCULAR HEMOGLOBIN 31.7 pg 25.7-32.2 (BEAKER) (test code = 751) MEAN CORPUSCULAR HEMOGLOBIN CONC 30.5 GM/DL 32.3-36.5 L (BEAKER) (test code = 752) RED CELL DISTRIBUTION WIDTH 18.4 % 11.6-14.4 H (BEAKER) (test code = 412) PLATELET COUNT (BEAKER) (test 160 K/CU MM 150-450 code = 756) MEAN PLATELET VOLUME (BEAKER) 10.3 fL 9.4-12.4 (test code = 754) NUCLEATED RED BLOOD CELLS 0 /100 WBC 0-0 (BEAKER) (test code = 413) POCT-GLUCOSE [id number] 21:17:00 Test Item Value Reference Range Interpretation Comments POC-GLUCOSE METER 100 mg/dL 70-110 : TESTED A T [facility] 6720 (BEAKER) (test code = [facility], 1538) 51123: Art Class Model/Techni jessica ID = [id number] for ARJUN MELENDREZ POCT-GLUCOSE [id number] 16:54:00 Test Item Value Reference Range Interpretation Comments POC-GLUCOSE METER 137 mg/dL 70-110 H : TESTED A T [facility] 6720 (BEAKER) (test code = [facility], 1538) 50459: Art Class Model/Techni jessica ID = [id number] for RED MAIN 2D Echo W/Doppler(CW/PW/Color)2020-02-20 13:25:35Ejection FractionSLEH ECHO HEARTLAB MKCKESSON CPACSInterface, External Ris In - 02/20/2020 1:25 PM C DTTransthoracic Echocardiography Report (TTE) Demographics Patient Name STEVE GAMEZ Date of Study 02/20/2020 MIGUEL Gender Male VisitNumber [id number] Race Room Number 1055 Number Date of 1935 Referring Eb Mazariegos Physician Age 84 year(s) 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 Jessenia Navarro, ISAÍAS, RDCS,RVT,RDMS 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 Normal LV wall thickness. Septal motion is abnormal, likely related to prior cardiac surgery . The following segment(s) appear akinetic: mid-distal septum andapex-distal anterior. Basal anterior and basal lateral segments contract normally. the other segments are hypokinetic. Global LV systolic function moderately reduced . LVEF by Cleary's method of disk a ssessment is moderately reduced (35%) . The LVEF was measured using Cleary's bi-plane method of disk . LV endocardium is adequately visualized with IV ultrasound enhancing agent. Diastolic dysfunctionis likely due to concomitant heart disease. A haece-iv-vbtrgggw pericardial effusion is present anteriorly . No significant valve disease detected. The estimated RA pressure by IVC dynamics 0-5mmHg . Previous Study In comparison with the prior exam 02-06-20 the following changes are noted: LV and RV systolic function have improved . Signature Findings Left Ventricle The left [...] agent. Diastolic dysfunction is likely due to concomitantheart disease. Left Atrium LA size is severely enlarged (>48 ml/m2) . Right Ventricle RV pacing wire is visualized . Global RV systolic function is low normal . RV chamber size is normal . Right Atrium RA cavity size is normal . RA pacing wire is visualized . Aortic Valve Mild AoV cusp calcification. A trace of aortic regurgitation. AoV cusp mobility is mildly decreased . Mitral Valve Mild mitral annular calcification. Mild MV leaflet calcification. Mild mitral regurgitation. Tricuspid Valve A trace of tricuspid regurgitation. Unable to estimate peak systolic PA pressure; inadequate TR velocity signal. Pulmonic Valve Mild pulmonary regurgitation. Normal PV structure and function. Aorta Aortic root size (SInus of Valsalva diameter) is normal . Proximal ascending aorta size mildly dilated . 4 cm Pericardium A mepom-lc-gffdyrnm pericardial effusion is present anteriorly . IVC/SVC/PA/PV/Pleural The estimated RA pressure by IVC dynamics 0-5mmHg . Chambers/Structures Left Atrium LA Volume: 95.32 ml LA Area: 26.96 cm^2 LA Vol. Index: 57 ml/m^2 Left Ventricle LVIDd: 5.38 cm LV Septum Diastolic: 1.06 cm LV PW Diastolic: 1.03 cm LVEDV Cleary's:268.12 ml LVESV Cleary's:174.23 mlLVEF Cleary's: 35 % LVEDVI: 161 ml/m^2 LVESVI: 104 ml/m^2 LVOT Diameter: 2.03 cm Right Atrium RA Vol. (Sngl Plane): 50.42 mlRight Ventricle TAPSE: 1.3 cm Aorta Ao Root S of Shruthi.: 3.5 cm Ascending Aorta: 4.04 cm Doppler/Quantitative Measurements Mitral Valve MV Peak E-Wave: 1.07 m/s MV Peak A-Wave: 1.3 m/s E/A Ratio: 0.82 Peak Gradient: 4.56 mmHg Deceleration Time: 204.9 msec MV Tej. Peak: Tissue Doppler E' Septal Velocity: 0.04 m/s E/E': 25.18 E' Lateral Velocity: 0.12 m/s Aortic Valve Peak Velocity: 2.11 m/s Mean Velocity: 1.61 m/s Peak Gradient: 17.73 mmHg Mean Gradient: 11.45 mmHg AV Area (continuity): 2.05 cm^2 Area (2D): 2 cm^2 AV VTI: 37.61 cm AV DVI: 0.63 LVOT Peak Velocity: 1.38 m/s Peak Gradient: 7.6 mmHg Mean Velocity: 0.98 m/s Mean Gradient: 4.57 mmHg LVOT Diameter:2.03 cm LVOT VTI: 23.86 cm LVOT Area: 3.24 cm^2 LVOT SV:77.18 ml LVOT CO: 6.17 l/min LVOT CI: 3.69 l/min/m^2[facility]PO[facility] [id number] 11:45:00 Test Item Value Reference Range Interpretation Comments POC-GLUCOSE METER 92 mg/dL 70-110 : TESTED A T [place] [id number] (BEAKER) (test code = [facility], 153) 86422: Art Class Model/Techni jessica ID = [id number] for WILL IAMS, TYNEKA POCT-GLUCOSE [id number] 08:10:00 Test Item Value Reference Range Interpretation Comments POC-GLUCOSE METER 79 mg/dL 70-110 : TESTED A T [facility] 6720 (BEAKER) (test code = [facility], 153) 60827: Art Class Model/Techni jessica ID = [id number] for WILL IAMS, TYNEKA POCT-GLUCOSE [id number] 07:44:00 Test Item Value Reference Range Interpretation Comments POC-GLUCOSE METER 67 mg/dL 70-110 L : Will Rep eat Test: (BEAKER) (test code = Notifi to RN/MD: TESTED 1537) AT [address], [address]: Art Class Model/Techni jessica ID = [id number] for RED [place] BASIC METABOLIC [id number] 06:59:00 Test Item Value Reference Range Interpretation Comments SODIUM (BEAKER) 140 meq/L 136-145 (test code = 381) POTASSIUM (BEAKER) 4.1 meq/L 3.5-5.1 Specimen slightly (test code = 379) hemolyzed CHLORIDE (BEAKER) 103 meq/L 98-107 (test code = 382) CO2 (BEAKER) (test 28 meq/L 22-29 code = 355) BLOOD UREA NITROGEN 26 mg/dL 7-21 H (BEAKER) (test code = 354) CREATININE (BEAKER) 3.50 mg/dL 0.57-1.25 H Specimen slightly (test code = 358) hemolyzed GLUCOSE RANDOM 68 mg/dL 70-105 L (BEAKER) (test code = 652) CALCIUM (BEAKER) 8.3 mg/dL 8.4-10.2 L (test code = 697) EGFR (BEAKER) (test 17 mL/min/1.73 ESTIMA MAI GFR IS code = 1092) sq m NOT ACCURATE CREATININE CLEARANCE IN PREDICTING GLOMERULAR FILTRATION RATE . ESTIMATED GFR I S NOT APPLICABLE FOR DIALYSIS PATIEN TS. Art Class Model ID - DEANDRE MPROTHROMBIN TIME/[id number] 06:26:00 Test Item Value Reference Range Interpretation Comments PROTIME (BEAKER) (test code = 25.6 seconds 11.9-14.2 H 759) INR (BEAKER) (test code = 370) 2.4 <=5.9 Effective 02/08/2019: PT Reference Range ChangeNew: 11.9-14.2 Previous: 11.7- 14.7RECOMMENDED COUMADIN/WARFARIN INR THERAPY RANGESSTANDARD DOSE: 2.0-3.0 Includes: PROPHYLAXIS for venous thrombosis, systemic embolization; TREATMENT for venous thrombosis and/or pulmonary embolus.HIGH RISK: Target INR is2.5-3.5 for patients wiht mechanical heart valves.While on warfarin.CBC (HEMOGRAM ONLY) 2020-02-20 06:10:00 Test Item Value Reference Range Interpretation Comments WHITE BLOOD CELL COUNT (BEAKER) 8.2 K/ L 3.5-10.5 (test code = 775) RED BLOOD CELL COUNT (BEAKER) 2.87 M/ L 4.63-6.08 L (test code = 761) HEMOGLOBIN (BEAKER) (test code = 9.0 GM/DL 13.7-17.5 L 410) HEMATOCRIT (BEAKER) (test code = 30.2 % 40.1-51.0 L 411) MEAN CORPUSCULAR VOLUME (BEAKER) 105.2 fL 79.0-92.2 H (test code = 753) MEAN CORPUSCULAR HEMOGLOBIN 31.4 pg 25.7-32.2 (BEAKER) (test code = 751) MEAN CORPUSCULAR HEMOGLOBIN CONC 29.8 GM/DL 32.3-36.5 L (BEAKER) (test code = 752) RED CELL DISTRIBUTION WIDTH 18.6 % 11.6-14.4 H (BEAKER) (test code = 412) PLATELET COUNT (BEAKER) (test 172 K/CU MM 150-450 code = 756) MEAN PLATELET VOLUME (BEAKER) 10.5 fL 9.4-12.4 (test code = 754) NUCLEATED RED BLOOD CELLS 0 /100 WBC 0-0 (BEAKER) (test code = 413) POCT-GLUCOSE [id number] 21:20:00 Test Item Value Reference Range Interpretation Comments POC-GLUCOSE METER 106 mg/dL 70-110 : TESTED A T [facility] 6720 (BEAKER) (test code = [facility], 153) 30130: Art Class Model/Techni jsesica ID = [id number] for ARJUN MELENDREZ POCT-GLUCOSE [id number] 16:38:00 Test Item Value Reference Range Interpretation Comments POC-GLUCOSE METER 123 mg/dL 70-110 H : TESTED A T [facility] 6720 (BEAKER) (test code = [facility], 153) 34274: Art Class Model/Techni jessica ID = [id number] for EDUARDO LEIGH POCT-GLUCOSE [id number] 10:09:00 Test Item Value Reference Range Interpretation Comments POC-GLUCOSE METER 80 mg/dL 70-110 : TESTED A T [facility] 6720 (BEAKER) (test code = [facility], 153) 32889: Art Class Model/Techni jessica ID = [id number] for FLACO RIVERA POCT-GLUCOSE [id number] 07:43:00 Test Item Value Reference Range Interpretation Comments POC-GLUCOSE METER 83 mg/dL 70-110 : TESTED A T [facility] 6720 (BEAKER) (test code = [facility] [place], 1538) 46879: Art Class Model/Techni jessica ID = [id number] for eLno Trujillo BASIC METABOLIC [id number] 07:22:00 Test Item Value Reference Range Interpretation Comments SODIUM (BEAKER) 137 meq/L 136-145 (test code = 381) POTASSIUM (BEAKER) 4.8 meq/L 3.5-5.1 Specimen slightly (test code = 379) hemolyzed CHLORIDE (BEAKER) 98 meq/L 98-107 (test code = 382) CO2 (BEAKER) (test 24 meq/L 22-29 code = 355) BLOOD UREA NITROGEN 64 mg/dL 7-21 H (BEAKER) (test code = 354) CREATININE (BEAKER) 6.30 mg/dL 0.57-1.25 H Specimen slightly (test code = 358) hemolyzed GLUCOSE RANDOM 89 mg/dL 70-105 (BEAKER) (test code = 652) CALCIUM (BEAKER) 8.6 mg/dL 8.4-10.2 (test code = 697) EGFR (BEAKER) (test 9 mL/min/1.73 ESTIMAT ED GFR IS code = 1092) sq m NOT ACCURATE CREATININE CLEARANCE IN PREDICTING GLOMERULAR FILTRATION RATE . ESTIMATED GFR I S NOT APPLICABLE FOR DIALYSIS PATIEN TS. Art Class Model ID - DEANDRE MPROTHROMBIN TIME/[id number] 06:52:00 Test Item Value Reference Range Interpretation Comments PROTIME (BEAKER) (test code = 29.4 seconds 11.9-14.2 H 759) INR (BEAKER) (test code = 370) 2.9 <=5.9 Effective 02/08/2019: PT Reference Range ChangeNew: 11.9-14.2 Previous: 11.7- 14.7RECOMMENDED COUMADIN/WARFARIN INR THERAPY RANGESSTANDARD DOSE: 2.0-3.0 Includes: PROPHYLAXIS for venous thrombosis, systemic embolization; TREATMENT for venous thrombosis and/or pulmonary embolus.HIGH RISK: Target INR is2.5-3.5 for patients wiht mechanical heart valves.While on warfarin.CBC (HEMOGRAM ONLY) 2020-02-19 06:33:00 Test Item Value Reference Range Interpretation Comments WHITE BLOOD CELL COUNT (BEAKER) 9.0 K/ L 3.5-10.5 (test code = 775) RED BLOOD CELL COUNT (BEAKER) 2.91 M/ L 4.63-6.08 L (test code = 761) HEMOGLOBIN (BEAKER) (test code = 9.2 GM/DL 13.7-17.5 L 410) HEMATOCRIT (BEAKER) (test code = 30.5 % 40.1-51.0 L 411) MEAN CORPUSCULAR VOLUME (BEAKER) 104.8 fL 79.0-92.2 H (test code = 753) MEAN CORPUSCULAR HEMOGLOBIN 31.6 pg 25.7-32.2 (BEAKER) (test code = 751) MEAN CORPUSCULAR HEMOGLOBIN CONC 30.2 GM/DL 32.3-36.5 L (BEAKER) (test code = 752) RED CELL DISTRIBUTION WIDTH 18.5 % 11.6-14.4 H (BEAKER) (test code = 412) PLATELET COUNT (BEAKER) (test 176 K/CU MM 150-450 code = 756) MEAN PLATELET VOLUME (BEAKER) 10.8 fL 9.4-12.4 (test code = 754) NUCLEATED RED BLOOD CELLS 0 /100 WBC 0-0 (BEAKER) (test code = 413) POCT-GLUCOSE [id number] 20:57:00 Test Item Value Reference Range Interpretation Comments POC-GLUCOSE METER 135 mg/dL 70-110 H : TESTED A T [facility] 6720 (BEAKER) (test code = [facility], 1538) [address]394: Art Class Model/Techni jessiac ID = [id number] for PE JOHANNA NEWSOME POCT-GLUCOSE [id number] 17:08:00 Test Item Value Reference Range Interpretation Comments POC-GLUCOSE METER 105 mg/dL 70-110 : TESTED A T [facility] 6720 (BEAKER) (test code = [facility], 1538) 54938: Art Class Model/Techni jessica ID = [id number] for DEREK YO CHIISABELLE POCT-GLUCOSE [id number] 11:42:00 Test Item Value Reference Range Interpretation Comments POC-GLUCOSE METER 111 mg/dL 70-110 H : TESTED A T [facility] 6720 (BEAKER) (test code = [facility] [place], 1538) [address]2826: Art Class Model/Techni jessica ID = [id number] for BULMARO SYLVESTER POCT-GLUCOSE [id number] 07:33:00 Test Item Value Reference Range Interpretation Comments POC-GLUCOSE METER 85 mg/dL 70-110 : TESTED A T [facility] 6720 (BEAKER) (test code = [facility] [place], 1538) [address]: Art Class Model/Techni jessica ID = [id number] for BULMARO ELLER BASIC METABOLIC [id number] 06:04:00 Test Item Value Reference Range Interpretation Comments SODIUM (BEAKER) 138 meq/L 136-145 (test code = 381) POTASSIUM (BEAKER) 4.2 meq/L 3.5-5.1 (test code = 379) CHLORIDE (BEAKER) 102 meq/L 98-107 (test code = 382) CO2 (BEAKER) (test 26 meq/L 22-29 code = 355) BLOOD UREA NITROGEN 48 mg/dL 7-21 H (BEAKER) (test code = 354) CREATININE (BEAKER) 5.04 mg/dL 0.57-1.25 H (test code = 358) GLUCOSE RANDOM 104 mg/dL 70-105 (BEAKER) (test code = 652) CALCIUM (BEAKER) 8.3 mg/dL 8.4-10.2 L (test code = 697) EGFR (BEAKER) (test 11 mL/min/1.73 ESTIMA MAI GFR IS code = 1092) sq m NOT ACCURATE CREATININE CLEARANCE IN PREDICTING GLOMERULAR FILTRATION RATE . ESTIMATED GFR I S NOT APPLICABLE FOR DIALYSIS PATIEN TS. Art Class Model ID - DEANDRE MPROTHROMBIN TIME/[id number] 05:21:00 Test Item Value Reference Range Interpretation Comments PROTIME (BEAKER) (test code = 30.1 seconds 11.9-14.2 H 759) INR (BEAKER) (test code = 370) 3.0 <=5.9 Effective 02/08/2019: PT Reference Range ChangeNew: 11.9-14.2 Previous: 11.7- 14.7RECOMMENDED COUMADIN/WARFARIN INR THERAPY RANGESSTANDARD DOSE: 2.0-3.0 Includes: PROPHYLAXIS for venous thrombosis, systemic embolization; TREATMENT for venous thrombosis and/or pulmonary embolus.HIGH RISK: Target INR is2.5-3.5 for patients wiht mechanical heart valves.While on warfarin.CBC (HEMOGRAM ONLY) 2020-02-18 05:06:00 Test Item Value Reference Range Interpretation Comments WHITE BLOOD CELL COUNT (BEAKER) 9.2 K/ L 3.5-10.5 (test code = 775) RED BLOOD CELL COUNT (BEAKER) 2.80 M/ L 4.63-6.08 L (test code = 761) HEMOGLOBIN (BEAKER) (test code = 9.0 GM/DL 13.7-17.5 L 410) HEMATOCRIT (BEAKER) (test code = 29.7 % 40.1-51.0 L 411) MEAN CORPUSCULAR VOLUME (BEAKER) 106.1 fL 79.0-92.2 H (test code = 753) MEAN CORPUSCULAR HEMOGLOBIN 32.1 pg 25.7-32.2 (BEAKER) (test code = 751) MEAN CORPUSCULAR HEMOGLOBIN CONC 30.3 GM/DL 32.3-36.5 L (BEAKER) (test code = 752) RED CELL DISTRIBUTION WIDTH 18.5 % 11.6-14.4 H (BEAKER) (test code = 412) PLATELET COUNT (BEAKER) (test 163 K/CU MM 150-450 code = 756) MEAN PLATELET VOLUME (BEAKER) 10.3 fL 9.4-12.4 (test code = 754) NUCLEATED RED BLOOD CELLS 0 /100 WBC 0-0 (BEAKER) (test code = 413) POCT-GLUCOSE [id number] 21:16:00 Test Item Value Reference Range Interpretation Comments POC-GLUCOSE METER 111 mg/dL 70-110 H : TESTED A T [facility] 6720 (BEAKER) (test code = ARIS AMCIAS, 1538) 64804: Art Class Model/Techni jessica ID = [id number] for UMER HERNDON III POCT-GLUCOSE [id number] 17:03:00 Test Item Value Reference Range Interpretation Comments POC-GLUCOSE METER 140 mg/dL 70-110 H : TESTED A T [facility] 6720 (BEAKER) (test code = ARIS MACIAS, 1538) 73581: Art Class Model/Techni jessica ID = [id number] for BULMARO SYLVESTER POCT-GLUCOSE [id number] 12:10:00 Test Item Value Reference Range Interpretation Comments POC-GLUCOSE METER 85 mg/dL 70-110 : TESTED A T [facility] 6720 (BEAKER) (test code = [facility], 1538) 28247: Art Class Model/Techni jessica ID = [id number] for FEMI INBULMARO POCT-GLUCOSE [id number] 08:05:00 Test Item Value Reference Range Interpretation Comments POC-GLUCOSE METER 76 mg/dL 70-110 : TESTED A T [facility] 6720 (BEAKER) (test code = [facility], 1538) 50715: Art Class Model/Techni jessica ID = [id number] for FEMI INBULMARO BASIC METABOLIC [id number] 05:44:00 Test Item Value Reference Range Interpretation Comments SODIUM (BEAKER) 141 meq/L 136-145 (test code = 381) POTASSIUM (BEAKER) 4.0 meq/L 3.5-5.1 (test code = 379) CHLORIDE (BEAKER) 103 meq/L 98-107 (test code = 382) CO2 (BEAKER) (test 27 meq/L 22-29 code = 355) BLOOD UREA NITROGEN 29 mg/dL 7-21 H (BEAKER) (test code = 354) CREATININE (BEAKER) 3.48 mg/dL 0.57-1.25 H (test code = 358) GLUCOSE RANDOM 76 mg/dL 70-105 (BEAKER) (test code = 652) CALCIUM (BEAKER) 8.8 mg/dL 8.4-10.2 (test code = 697) EGFR (BEAKER) (test 17 mL/min/1.73 ESTIMA MAI GFR IS code = 1092) sq m NOT ACCURATE CREATININE CLEARANCE IN PREDICTING GLOMERULAR FILTRATION RATE . ESTIMATED GFR I S NOT APPLICABLE FOR DIALYSIS PATIEN TS. Art Class Model ID - ANA WPROTHROMBIN TIME/[id number] 05:19:00 Test Item Value Reference Range Interpretation Comments PROTIME (BEAKER) (test code = 27.3 seconds 11.9-14.2 H 759) INR (BEAKER) (test code = 370) 2.6 <=5.9 Effective 02/08/2019: PT Reference Range ChangeNew: 11.9-14.2 Previous: 11.7- 14.7RECOMMENDED COUMADIN/WARFARIN INR THERAPY RANGESSTANDARD DOSE: 2.0-3.0 Includes: PROPHYLAXIS for venous thrombosis, systemic embolization; TREATMENT for venous thrombosis and/or pulmonary embolus.HIGH RISK: Target INR is2.5-3.5 for patients wiht mechanical heart valves.While on warfarin.CBC (HEMOGRAM ONLY) 2020-02-17 05:06:00 Test Item Value Reference Range Interpretation Comments WHITE BLOOD CELL COUNT (BEAKER) 8.7 K/ L 3.5-10.5 (test code = 775) RED BLOOD CELL COUNT (BEAKER) 2.87 M/ L 4.63-6.08 L (test code = 761) HEMOGLOBIN (BEAKER) (test code = 9.1 GM/DL 13.7-17.5 L 410) HEMATOCRIT (BEAKER) (test code = 29.7 % 40.1-51.0 L 411) MEAN CORPUSCULAR VOLUME (BEAKER) 103.5 fL 79.0-92.2 H (test code = 753) MEAN CORPUSCULAR HEMOGLOBIN 31.7 pg 25.7-32.2 (BEAKER) (test code = 751) MEAN CORPUSCULAR HEMOGLOBIN CONC 30.6 GM/DL 32.3-36.5 L (BEAKER) (test code = 752) RED CELL DISTRIBUTION WIDTH 18.6 % 11.6-14.4 H (BEAKER) (test code = 412) PLATELET COUNT (BEAKER) (test 178 K/CU MM 150-450 code = 756) MEAN PLATELET VOLUME (BEAKER) 9.9 fL 9.4-12.4 (test code = 754) NUCLEATED RED BLOOD CELLS 0 /100 WBC 0-0 (BEAKER) (test code = 413) POCT-GLUCOSE [id number] 21:06:00 Test Item Value Reference Range Interpretation Comments POC-GLUCOSE METER 99 mg/dL 70-110 : TESTED A T [facility] 6720 (BEAKER) (test code = ARIS MACIAS, 1538) 38653: Art Class Model/Techni jessica ID = [id number] for NORMAN ALES IIITOMASE POCT-GLUCOSE [id number] 17:25:00 Test Item Value Reference Range Interpretation Comments POC-GLUCOSE METER 81 mg/dL 70-110 : TESTED A T [facility] 6720 (BEAKER) (test code = ARIS Chaney [place], 1538) 04992: Art Class Model/Techni jesisca ID = [id number] for Leno Trujillo HEMODIALYSIS [id number] 12:10:00Gilmar Antonio RN 02/16/2020 12:10 PM Pt dialyzed for 4 hrs via left upper arm AVF. NET UF= 1L., Mannitol IV prn given for low b/ps as ordered. Lab Results Component Value Date WBC 8.2 [...] 01/25/2020 44.3 (H) 22.5 - 36.0 seconds FinalCHI [facility] Center[facility]IC [id number] 06:25:00 Test Item Value Reference Range Interpretation Comments SODIUM (BEAKER) 138 meq/L 136-145 (test code = 381) POTASSIUM (BEAKER) 4.1 meq/L 3.5-5.1 (test code = 379) CHLORIDE (BEAKER) 99 meq/L 98-107 (test code = 382) CO2 (BEAKER) (test 26 meq/L 22-29 code = 355) BLOOD UREA NITROGEN 54 mg/dL 7-21 H (BEAKER) (test code = 354) CREATININE (BEAKER) 5.48 mg/dL 0.57-1.25 H (test code = 358) GLUCOSE RANDOM 102 mg/dL 70-105 (BEAKER) (test code = 652) CALCIUM (BEAKER) 8.6 mg/dL 8.4-10.2 (test code = 697) EGFR (BEAKER) (test 10 mL/min/1.73 ESTIMA MAI GFR IS code = 1092) sq m NOT ACCURATE CREATININE CLEARANCE IN PREDICTING GLOMERULAR FILTRATION RATE . ESTIMATED GFR I S NOT APPLICABLE FOR DIALYSIS PATIEN TS. Art Class Model ID - PIAYA LPROTHROMBIN TIME/[id number] 06:14:00 Test Item Value Reference Range Interpretation Comments PROTIME (BEAKER) (test code = 28.4 seconds 11.9-14.2 H 759) INR (BEAKER) (test code = 370) 2.8 <=5.9 Effective 02/08/2019: PT Reference Range ChangeNew: 11.9-14.2 Previous: 11.7- 14.7RECOMMENDED COUMADIN/WARFARIN INR THERAPY RANGESSTANDARD DOSE: 2.0-3.0 Includes: PROPHYLAXIS for venous thrombosis, systemic embolization; TREATMENT for venous thrombosis and/or pulmonary embolus.HIGH RISK: Target INR is2.5-3.5 for patients wiht mechanical heart valves.While on warfarin.CBC (HEMOGRAM ONLY) 2020-02-16 05:50:00 Test Item Value Reference Range Interpretation Comments WHITE BLOOD CELL COUNT (BEAKER) 8.2 K/ L 3.5-10.5 (test code = 775) RED BLOOD CELL COUNT (BEAKER) 2.83 M/ L 4.63-6.08 L (test code = 761) HEMOGLOBIN (BEAKER) (test code = 9.0 GM/DL 13.7-17.5 L 410) HEMATOCRIT (BEAKER) (test code = 29.1 % 40.1-51.0 L 411) MEAN CORPUSCULAR VOLUME (BEAKER) 102.8 fL 79.0-92.2 H (test code = 753) MEAN CORPUSCULAR HEMOGLOBIN 31.8 pg 25.7-32.2 (BEAKER) (test code = 751) MEAN CORPUSCULAR HEMOGLOBIN CONC 30.9 GM/DL 32.3-36.5 L (BEAKER) (test code = 752) RED CELL DISTRIBUTION WIDTH 18.5 % 11.6-14.4 H (BEAKER) (test code = 412) PLATELET COUNT (BEAKER) (test 168 K/CU MM 150-450 code = 756) MEAN PLATELET VOLUME (BEAKER) 10.5 fL 9.4-12.4 (test code = 754) NUCLEATED RED BLOOD CELLS 0 /100 WBC 0-0 (BEAKER) (test code = 413) POCT-GLUCOSE [id number] 21:35:00 Test Item Value Reference Range Interpretation Comments POC-GLUCOSE METER 74 mg/dL 70-110 : TESTED A T [facility] 6720 (BEAKER) (test code = [facility], [facility]8) 16541: Art Class Model/Techni jessica ID = [id number] for JOHANNA CHENG POCT-GLUCOSE [id number] 16:04:00 Test Item Value Reference Range Interpretation Comments POC-GLUCOSE METER 80 mg/dL 70-110 : TESTED A T [facility] 6720 (BEAKER) (test code = [facility], [facility]) 13715: Art Class Model/Techni jessica ID = [id number] for ALYSSA SHEN POCT-GLUCOSE [id number] 11:34:00 Test Item Value Reference Range Interpretation Comments POC-GLUCOSE METER 73 mg/dL 70-110 : TESTED A T [facility] 6720 (BEAKER) (test code = [facility], [facility]) 60766: Art Class Model/Techni jessica ID = [id number] for ALYSSA SHEN POCT-GLUCOSE [id number] 07:44:00 Test Item Value Reference Range Interpretation Comments POC-GLUCOSE METER 76 mg/dL 70-110 : TESTED A T [facility] 6720 (BEAKER) (test code = [facility], [facility]) 15573: Art Class Model/Techni jessica ID = [id number] for ALYSSA SHEN BASIC METABOLIC [id number] 05:44:00 Test Item Value Reference Range Interpretation Comments SODIUM (BEAKER) 135 meq/L 136-145 L (test code = 381) POTASSIUM (BEAKER) 3.8 meq/L 3.5-5.1 (test code = 379) CHLORIDE (BEAKER) 99 meq/L 98-107 (test code = 382) CO2 (BEAKER) (test 26 meq/L 22-29 code = 355) BLOOD UREA NITROGEN 33 mg/dL 7-21 H (BEAKER) (test code = 354) CREATININE (BEAKER) 3.36 mg/dL 0.57-1.25 H (test code = 358) GLUCOSE RANDOM 102 mg/dL 70-105 (BEAKER) (test code = 652) CALCIUM (BEAKER) 8.7 mg/dL 8.4-10.2 (test code = 697) EGFR (BEAKER) (test 18 mL/min/1.73 ESTIMA MAI GFR IS code = 1092) sq m NOT ACCURATE CREATININE CLEARANCE IN PREDICTING GLOMERULAR FILTRATION RATE . ESTIMATED GFR I S NOT APPLICABLE FOR DIALYSIS PATIEN TS. Art Class Model ID - BSPROTHROMBIN TIME/[id number] 05:00:00 Test Item Value Reference Range Interpretation Comments PROTIME (BEAKER) (test code = 24.2 seconds 11.9-14.2 H 759) INR (BEAKER) (test code = 370) 2.2 <=5.9 Effective 02/08/2019: PT Reference Range ChangeNew: 11.9-14.2 Previous: 11.7- 14.7RECOMMENDED COUMADIN/WARFARIN INR THERAPY RANGESSTANDARD DOSE: 2.0-3.0 Includes: PROPHYLAXIS for venous thrombosis, systemic embolization; TREATMENT for venous thrombosis and/or pulmonary embolus.HIGH RISK: Target INR is2.5-3.5 for patients wiht mechanical heart valves.While on warfarin.CBC (HEMOGRAM ONLY) 2020-02-15 04:48:00 Test Item Value Reference Range Interpretation Comments WHITE BLOOD CELL COUNT (BEAKER) 9.0 K/ L 3.5-10.5 (test code = 775) RED BLOOD CELL COUNT (BEAKER) 2.82 M/ L 4.63-6.08 L (test code = 761) HEMOGLOBIN (BEAKER) (test code = 9.0 GM/DL 13.7-17.5 L 410) HEMATOCRIT (BEAKER) (test code = 29.0 % 40.1-51.0 L 411) MEAN CORPUSCULAR VOLUME (BEAKER) 102.8 fL 79.0-92.2 H (test code = 753) MEAN CORPUSCULAR HEMOGLOBIN 31.9 pg 25.7-32.2 (BEAKER) (test code = 751) MEAN CORPUSCULAR HEMOGLOBIN CONC 31.0 GM/DL 32.3-36.5 L (BEAKER) (test code = 752) RED CELL DISTRIBUTION WIDTH 18.0 % 11.6-14.4 H (BEAKER) (test code = 412) PLATELET COUNT (BEAKER) (test 162 K/CU MM 150-450 code = 756) MEAN PLATELET VOLUME (BEAKER) 10.3 fL 9.4-12.4 (test code = 754) NUCLEATED RED BLOOD CELLS 0 /100 WBC 0-0 (BEAKER) (test code = 413) POCT-GLUCOSE [id number] 21:21:00 Test Item Value Reference Range Interpretation Comments POC-GLUCOSE METER 85 mg/dL 70-110 : TESTED A T [facility] 6720 (BEAKER) (test code = [facility], [facility]) 79747: Art Class Model/Techni jessica ID = [id number] for FABI RIOS POCT-GLUCOSE [id number] 16:57:00 Test Item Value Reference Range Interpretation Comments POC-GLUCOSE METER 73 mg/dL 70-110 : TESTED A T [facility] 6720 (BEAKER) (test code = [facility], [facility]) 36490: Art Class Model/Techni jessica ID = [id number] for Leno Trujillo POCT-GLUCOSE [id number] 08:16:00 Test Item Value Reference Range Interpretation Comments POC-GLUCOSE METER 84 mg/dL 70-110 : TESTED A T [facility] 6720 (BEAKER) (test code = [facility], [facility]) 84671: Art Class Model/Techni jessica ID = [id number] for ZACK , NIK POCT-GLUCOSE [id number] 07:56:00 Test Item Value Reference Range Interpretation Comments POC-GLUCOSE METER 76 mg/dL 70-110 : TESTED A T [facility] 6720 (BEAKER) (test code = [facility], [facility]) 83666: Art Class Model/Techni jessica ID = [id number] for ZACK , NIK BASIC METABOLIC [id number] 07:09:00 Test Item Value Reference Range Interpretation Comments SODIUM (BEAKER) 139 meq/L 136-145 (test code = 381) POTASSIUM (BEAKER) 4.6 meq/L 3.5-5.1 (test code = 379) CHLORIDE (BEAKER) 102 meq/L 98-107 (test code = 382) CO2 (BEAKER) (test 23 meq/L - code = 355) BLOOD UREA NITROGEN 60 mg/dL 7-21 H (BEAKER) (test code = 354) CREATININE (BEAKER) 5.54 mg/dL 0.57-1.25 H (test code = 358) GLUCOSE RANDOM 81 mg/dL 70-105 (BEAKER) (test code = 652) CALCIUM (BEAKER) 8.9 mg/dL 8.4-10.2 (test code = 697) EGFR (BEAKER) (test 10 mL/min/1.73 ESTIMA MAI GFR IS code = 1092) sq m NOT ACCURATE CREATININE CLEARANCE IN PREDICTING GLOMERULAR FILTRATION RATE . ESTIMATED GFR I S NOT APPLICABLE FOR DIALYSIS PATIEN TS. Art Class Model ID - DEANDRE MPROTHROMBIN TIME/[id number] 06:33:00 Test Item Value Reference Range Interpretation Comments PROTIME (BEAKER) (test code = 21.5 seconds 11.9-14.2 H 759) INR (BEAKER) (test code = 370) 1.9 <=5.9 Effective 02/08/2019: PT Reference Range ChangeNew: 11.9-14.2 Previous: 11.7- 14.7RECOMMENDED COUMADIN/WARFARIN INR THERAPY RANGESSTANDARD DOSE: 2.0-3.0 Includes: PROPHYLAXIS for venous thrombosis, systemic embolization; TREATMENT for venous thrombosis and/or pulmonary embolus.HIGH RISK: Target INR is2.5-3.5 for patients wiht mechanical heart valves.While on warfarin.CBC (HEMOGRAM ONLY) 2020-02-14 06:22:00 Test Item Value Reference Range Interpretation Comments WHITE BLOOD CELL COUNT (BEAKER) 10.5 K/ L 3.5-10.5 (test code = 775) RED BLOOD CELL COUNT (BEAKER) 2.81 M/ L 4.63-6.08 L (test code = 761) HEMOGLOBIN (BEAKER) (test code = 9.0 GM/DL 13.7-17.5 L 410) HEMATOCRIT (BEAKER) (test code = 28.8 % 40.1-51.0 L 411) MEAN CORPUSCULAR VOLUME (BEAKER) 102.5 fL 79.0-92.2 H (test code = 753) MEAN CORPUSCULAR HEMOGLOBIN 32.0 pg 25.7-32.2 (BEAKER) (test code = 751) MEAN CORPUSCULAR HEMOGLOBIN CONC 31.3 GM/DL 32.3-36.5 L (BEAKER) (test code = 752) RED CELL DISTRIBUTION WIDTH 18.5 % 11.6-14.4 H (BEAKER) (test code = 412) PLATELET COUNT (BEAKER) (test 146 K/CU MM 150-450 L code = 756) MEAN PLATELET VOLUME (BEAKER) 10.6 fL 9.4-12.4 (test code = 754) NUCLEATED RED BLOOD CELLS 0 /100 WBC 0-0 (BEAKER) (test code = 413) POCT-GLUCOSE [id number] 21:19:00 Test Item Value Reference Range Interpretation Comments POC-GLUCOSE METER 94 mg/dL 70-110 : TESTED A T [facility] 6720 (BEAKER) (test code = [facility], 153) 86977: Art Class Model/Techni jessica ID = [id number] for MARQUIS Galdino ARJUN POCT-GLUCOSE [id number] 16:58:00 Test Item Value Reference Range Interpretation Comments POC-GLUCOSE METER 106 mg/dL 70-110 : TESTED A T [facility] 6720 (BEAKER) (test code = [facility], 153) 98943: Art Class Model/Techni jessica ID = [id number] for ANTONY NASSARABENA RODRIGUEZ POCT-GLUCOSE [id number] 12:02:00 Test Item Value Reference Range Interpretation Comments POC-GLUCOSE METER 93 mg/dL 70-110 : TESTED A T [facility] 6720 (BEAKER) (test code = [facility], 153) 79132: Art Class Model/Techni jessica ID = [id number] for ALYSSA SHEN POCT-GLUCOSE [id number] 07:47:00 Test Item Value Reference Range Interpretation Comments POC-GLUCOSE METER 91 mg/dL 70-110 : TESTED A T [facility] 6720 (BEAKER) (test code = [facility], 1538) 62691: Art Class Model/Techni jessica ID = [id number] for ALYSSA SHEN BASIC METABOLIC [id number] 07:20:00 Test Item Value Reference Range Interpretation Comments SODIUM (BEAKER) 141 meq/L 136-145 (test code = 381) POTASSIUM (BEAKER) 4.4 meq/L 3.5-5.1 (test code = 379) CHLORIDE (BEAKER) 103 meq/L 98-107 (test code = 382) CO2 (BEAKER) (test 29 meq/L 22-29 code = 355) BLOOD UREA NITROGEN 35 mg/dL 7-21 H (BEAKER) (test code = 354) CREATININE (BEAKER) 3.59 mg/dL 0.57-1.25 H (test code = 358) GLUCOSE RANDOM 94 mg/dL 70-105 (BEAKER) (test code = 652) CALCIUM (BEAKER) 8.7 mg/dL 8.4-10.2 (test code = 697) EGFR (BEAKER) (test 16 mL/min/1.73 ESTIMA MAI GFR IS code = 1092) sq m NOT ACCURATE CREATININE CLEARANCE IN PREDICTING GLOMERULAR FILTRATION RATE . ESTIMATED GFR I S NOT APPLICABLE FOR DIALYSIS PATIEN TS. Art Class Model ID - PIAYA LPROTHROMBIN TIME/[id number] 06:35:00 Test Item Value Reference Range Interpretation Comments PROTIME (BEAKER) (test code = 18.0 seconds 11.9-14.2 H 759) INR (BEAKER) (test code = 370) 1.5 <=5.9 Effective 02/08/2019: PT Reference Range ChangeNew: 11.9-14.2 Previous: 11.7- 14.7RECOMMENDED COUMADIN/WARFARIN INR THERAPY RANGESSTANDARD DOSE: 2.0-3.0 Includes: PROPHYLAXIS for venous thrombosis, systemic embolization; TREATMENT for venous thrombosis and/or pulmonary embolus.HIGH RISK: Target INR is2.5-3.5 for patients wiht mechanical heart valves.While on warfarin.CBC (HEMOGRAM ONLY) 2020-02-13 05:58:00 Test Item Value Reference Range Interpretation Comments WHITE BLOOD CELL COUNT (BEAKER) 10.8 K/ L 3.5-10.5 H (test code = 775) RED BLOOD CELL COUNT (BEAKER) 2.76 M/ L 4.63-6.08 L (test code = 761) HEMOGLOBIN (BEAKER) (test code = 8.7 GM/DL 13.7-17.5 L 410) HEMATOCRIT (BEAKER) (test code = 28.8 % 40.1-51.0 L 411) MEAN CORPUSCULAR VOLUME (BEAKER) 104.3 fL 79.0-92.2 H (test code = 753) MEAN CORPUSCULAR HEMOGLOBIN 31.5 pg 25.7-32.2 (BEAKER) (test code = 751) MEAN CORPUSCULAR HEMOGLOBIN CONC 30.2 GM/DL 32.3-36.5 L (BEAKER) (test code = 752) RED CELL DISTRIBUTION WIDTH 18.7 % 11.6-14.4 H (BEAKER) (test code = 412) PLATELET COUNT (BEAKER) (test 154 K/CU MM 150-450 code = 756) MEAN PLATELET VOLUME (BEAKER) 10.7 fL 9.4-12.4 (test code = 754) NUCLEATED RED BLOOD CELLS 0 /100 WBC 0-0 (BEAKER) (test code = 413) POCT-GLUCOSE [id number] 21:32:00 Test Item Value Reference Range Interpretation Comments POC-GLUCOSE METER 116 mg/dL 70-110 H : TESTED A T [facility] 6720 (BEAKER) (test code = [facility], 153) 91291: Art Class Model/Techni jessica ID = [id number] for PE DANI NEWSOMELO POCT-GLUCOSE [id number] 17:30:00 Test Item Value Reference Range Interpretation Comments POC-GLUCOSE METER 141 mg/dL 70-110 H : TESTED A T [facility] 6720 (BEAKER) (test code = [facility], 153) 09801: Art Class Model/Techni jessica ID = [id number] for HU NTER, HIWITHA POCT-GLUCOSE [id number] 12:31:00 Test Item Value Reference Range Interpretation Comments POC-GLUCOSE METER 91 mg/dL 70-110 : TESTED A T [facility] 6720 (BEAKER) (test code = [facility], 153) 31867: Art Class Model/Techni jessica ID = [id number] for ROGER ER, HIWITHA POCT-GLUCOSE [id number] 08:16:00 Test Item Value Reference Range Interpretation Comments POC-GLUCOSE METER 103 mg/dL 70-110 : TESTED A T [facility] 6720 (BEAKER) (test code = ARIS Chaney [place], 1538) 88155: Art Class Model/Techni jessica ID = [id number] for Po Roslyn oluise PROTHROMBIN TIME/[id number] 04:50:00 Test Item Value Reference Range Interpretation Comments PROTIME (BEAKER) (test code = 16.8 seconds 11.9-14.2 H 759) INR (BEAKER) (test code = 370) 1.4 <=5.9 Effective 02/08/2019: PT Reference Range ChangeNew: 11.9-14.2 Previous: 11.7- 14.7RECOMMENDED COUMADIN/WARFARIN INR THERAPY RANGESSTANDARD DOSE: 2.0-3.0 Includes: PROPHYLAXIS for venous thrombosis, systemic embolization; TREATMENT for venous thrombosis and/or pulmonary embolus.HIGH RISK: Target INR is2.5-3.5 for patients wiht mechanical heart valves.While on warfarin.CBC (HEMOGRAM ONLY) 2020-02-12 04:45:00 Test Item Value Reference Range Interpretation Comments WHITE BLOOD CELL COUNT (BEAKER) 10.5 K/ L 3.5-10.5 (test code = 775) RED BLOOD CELL COUNT (BEAKER) 2.65 M/ L 4.63-6.08 L (test code = 761) HEMOGLOBIN (BEAKER) (test code = 8.4 GM/DL 13.7-17.5 L 410) HEMATOCRIT (BEAKER) (test code = 27.4 % 40.1-51.0 L 411) MEAN CORPUSCULAR VOLUME (BEAKER) 103.4 fL 79.0-92.2 H (test code = 753) MEAN CORPUSCULAR HEMOGLOBIN 31.7 pg 25.7-32.2 (BEAKER) (test code = 751) MEAN CORPUSCULAR HEMOGLOBIN CONC 30.7 GM/DL 32.3-36.5 L (BEAKER) (test code = 752) RED CELL DISTRIBUTION WIDTH 18.4 % 11.6-14.4 H (BEAKER) (test code = 412) PLATELET COUNT (BEAKER) (test 145 K/CU MM 150-450 L code = 756) MEAN PLATELET VOLUME (AKER) 10.5 fL 9.4-12.4 (test code = 754) NUCLEATED RED BLOOD CELLS 0 /100 WBC 0-0 (BEAKER) (test code = 413) POCT-GLUCOSE [id number] 21:08:00 Test Item Value Reference Range Interpretation Comments POC-GLUCOSE METER 131 mg/dL 70-110 H : TESTED A T [facility] 6720 (BEAKER) (test code = [facility], 153) 38872: Art Class Model/Techni jessica ID = [id number] for FABI ISABEL SE POCT-GLUCOSE [id number] 17:11:00 Test Item Value Reference Range Interpretation Comments POC-GLUCOSE METER 166 mg/dL 70-110 H : TESTED A T [facility] 6720 (BEAKER) (test code = [facility], 153) 82094: Art Class Model/Techni jessica ID = [id number] for [place] KAJAL, DIVINAKA POCT-GLUCOSE [id number] 12:28:00 Test Item Value Reference Range Interpretation Comments POC-GLUCOSE METER 118 mg/dL 70-110 H : TESTED A T [facility] 6720 (BEAKER) (test code = [facility], 1538) 94296: Art Class Model/Techni jessica ID = [id number] for ZA VALA, ERANDY POCT-GLUCOSE [id number] 07:10:00 Test Item Value Reference Range Interpretation Comments POC-GLUCOSE METER 106 mg/dL 70-110 : TESTED A T [facility] 6720 (BEAKER) (test code = [facility], 153) 94206: Art Class Model/Techni jessica ID = [id number] for ZA VALA, ERANDY POCT-GLUCOSE [id number] 03:53:00 Test Item Value Reference Range Interpretation Comments POC-GLUCOSE METER 99 mg/dL 70-110 : TESTED A T [facility] 6720 (BEAKER) (test code = [facility], 153) 51370: Art Class Model/Techni jessica ID = [id number] for JOHANNA CHENG PROTHROMBIN [id number] 03:53:00 Test Item Value Reference Range Interpretation Comments PROTIME (BEAKER) (test code = 15.7 seconds 11.9-14.2 H 759) INR (BEAKER) (test code = 370) 1.3 <=5.9 Effective 02/08/2019: PT Reference Range ChangeNew: 11.9-14.2 Previous: 11.7- 14.7RECOMMENDED COUMADIN/WARFARIN INR THERAPY RANGESSTANDARD DOSE: 2.0-3.0 Includes: PROPHYLAXIS for venous thrombosis, systemic embolization; TREATMENT for venous thrombosis and/or pulmonary embolus.HIGH RISK: Target INR is2.5-3.5 for patients wiht mechanical heart valves.While on warfarin.CBC (HEMOGRAM ONLY) 2020-02-11 03:42:00 Test Item Value Reference Range Interpretation Comments WHITE BLOOD CELL COUNT (BEAKER) 11.1 K/ L 3.5-10.5 H (test code = 775) RED BLOOD CELL COUNT (BEAKER) 2.85 M/ L 4.63-6.08 L (test code = 761) HEMOGLOBIN (BEAKER) (test code = 9.4 GM/DL 13.7-17.5 L 410) HEMATOCRIT (BEAKER) (test code = 30.1 % 40.1-51.0 L 411) MEAN CORPUSCULAR VOLUME (BEAKER) 105.6 fL 79.0-92.2 H (test code = 753) MEAN CORPUSCULAR HEMOGLOBIN 33.0 pg 25.7-32.2 H (BEAKER) (test code = 751) MEAN CORPUSCULAR HEMOGLOBIN CONC 31.2 GM/DL 32.3-36.5 L (BEAKER) (test code = 752) RED CELL DISTRIBUTION WIDTH 18.5 % 11.6-14.4 H (BEAKER) (test code = 412) PLATELET COUNT (BEAKER) (test 155 K/CU MM 150-450 code = 756) MEAN PLATELET VOLUME (BEAKER) 10.5 fL 9.4-12.4 (test code = 754) NUCLEATED RED BLOOD CELLS 0 /100 WBC 0-0 (BEAKER) (test code = 413) Prepare [id number] 23:54:00 Test Item Value Reference Range Interpretation Comments Unit ABO (test code = 5722316) O Neg UNIT NUMBER (test code = [id number] 934-0) Status (test code = 7562938) TX_TIMEINCHART Blood Bank Product (test code FFP = 2263) PRODUCT CODE (test code = H8020I18 933-2) [facility] [id number] 16:49:00 Test Item Value Reference Range Interpretation Comments POC-GLUCOSE METER 108 mg/dL 70-110 : TESTED A T [facility] 6720 (BEAKER) (test code = [facility], 1538) 74846: Art Class Model/Techni jessica ID = [id number] for ZA SHRUTHIA, KEVINNDY POCT-GLUCOSE [id number] 11:59:00 Test Item Value Reference Range Interpretation Comments POC-GLUCOSE METER 105 mg/dL 70-110 : TESTED A T [facility] 6720 (BEAKER) (test code = [facility], 1538) 74703: Art Class Model/Techni jessica ID = [id number] for ZA VALA, KEVINNDY POCT-GLUCOSE [id number] 07:10:00 Test Item Value Reference Range Interpretation Comments POC-GLUCOSE METER 101 mg/dL 70-110 : TESTED A T [facility] 6720 (BEAKER) (test code = [facility], 1538) 33268: Art Class Model/Techni jessica ID = [id number] for ZA VALA, KEVINNDY BASIC METABOLIC [id number] 06:25:00 Test Item Value Reference Range Interpretation Comments SODIUM (BEAKER) 141 meq/L 136-145 (test code = 381) POTASSIUM (BEAKER) 3.7 meq/L 3.5-5.1 (test code = 379) CHLORIDE (BEAKER) 104 meq/L 98-107 (test code = 382) CO2 (BEAKER) (test 28 meq/L 22-29 code = 355) BLOOD UREA NITROGEN 25 mg/dL 7-21 H (BEAKER) (test code = 354) CREATININE (BEAKER) 2.68 mg/dL 0.57-1.25 H (test code = 358) GLUCOSE RANDOM 117 mg/dL 70-105 H (BEAKER) (test code = 652) CALCIUM (BEAKER) 8.9 mg/dL 8.4-10.2 (test code = 697) EGFR (BEAKER) (test 23 mL/min/1.73 ESTIMA MAI GFR IS code = 1092) sq m NOT ACCURATE CREATININE CLEARANCE IN PREDICTING GLOMERULAR FILTRATION RATE . ESTIMATED GFR I S NOT APPLICABLE FOR DIALYSIS PATIEN TS. Art Class Model ID - PIAYA LPROTHROMBIN [id number] 04:35:00 Test Item Value Reference Range Interpretation Comments PROTIME (BEAKER) (test code = 16.3 seconds 11.9-14.2 H 759) INR (BEAKER) (test code = 370) 1.3 <=5.9 Effective 02/08/2019: PT Reference Range ChangeNew: 11.9-14.2 Previous: 11.7- 14.7RECOMMENDED COUMADIN/WARFARIN INR THERAPY RANGESSTANDARD DOSE: 2.0-3.0 Includes: PROPHYLAXIS for venous thrombosis, systemic embolization; TREATMENT for venous thrombosis and/or pulmonary embolus.HIGH RISK: Target INR is2.5-3.5 for patients wiht mechanical heart valves.While on warfarin.CBC (HEMOGRAM ONLY) 2020-02-10 04:28:00 Test Item Value Reference Range Interpretation Comments WHITE BLOOD CELL COUNT (BEAKER) 9.6 K/ L 3.5-10.5 (test code = 775) RED BLOOD CELL COUNT (BEAKER) 2.70 M/ L 4.63-6.08 L (test code = 761) HEMOGLOBIN (BEAKER) (test code = 8.7 GM/DL 13.7-17.5 L 410) HEMATOCRIT (BEAKER) (test code = 28.3 % 40.1-51.0 L 411) MEAN CORPUSCULAR VOLUME (BEAKER) 104.8 fL 79.0-92.2 H (test code = 753) MEAN CORPUSCULAR HEMOGLOBIN 32.2 pg 25.7-32.2 (BEAKER) (test code = 751) MEAN CORPUSCULAR HEMOGLOBIN CONC 30.7 GM/DL 32.3-36.5 L (BEAKER) (test code = 752) RED CELL DISTRIBUTION WIDTH 18.0 % 11.6-14.4 H (BEAKER) (test code = 412) PLATELET COUNT (BEAKER) (test 175 K/CU MM 150-450 code = 756) MEAN PLATELET VOLUME (BEAKER) 10.3 fL 9.4-12.4 (test code = 754) NUCLEATED RED BLOOD CELLS 0 /100 WBC 0-0 (BEAKER) (test code = 413) POCT-GLUCOSE [id number] 21:15:00 Test Item Value Reference Range Interpretation Comments POC-GLUCOSE METER 146 mg/dL 70-110 H : TESTED A T [facility] 6720 (BEAKER) (test code = ARIS Chaney [facility], 1538) 25201: Art Class Model/Techni jessica ID = [id number] for FABI ISABEL SE POCT-GLUCOSE [id number] 17:51:00 Test Item Value Reference Range Interpretation Comments POC-GLUCOSE METER 104 mg/dL 70-110 : TESTED A T [facility] 6720 (BEAKER) (test code = ARIS Chaney [facility], 1538) 44495: Art Class Model/Techni jessica ID = [id number] for EDUARDO LEIGH RAD, CHEST, 1 VIEW, NON [id number] 16:48:00Patient in Angio 1Reason for exam:->post thoracentesisShould this be performed at the bedside?->Yes FINAL REPORT CHEST ONE VIEW HISTORY: Status post thoracentesis COMPARISON: 02/08/2020 FINDINGS: Single portable AP examination of the chest was performed. No pneumothorax is identified. Small bilateral pleural effusions are present, decreased in prominence since the prior study.Atelectatic changes at the lung bases are unchanged on the right and slightly decreased on the left.The cardiac shadow remains enlarged. Right subclavian transvenous cardiac pacing hardware is in place. Left central venous catheter tip is in the SVC region. Signed: Betsy Riddle MDReport Verified Date/Time: 02/09/2020 16:48:59 Reading Location: [facility] Radiology Reading Room Electronically signedby: BETSY RIDDLE MD on 02/09/2020 04:48 PMXR chest 1 view portable / [id number] 16:48:00Interface, External Ris In - 02/09/2020 4:51 PM CDTFINAL REPORT CHEST ONE VIEW HISTORY: Status post thoracentesis COMPARISON: 02/08/2020 FINDINGS: Single portable AP examination of the chest was performed. No pneumothorax is identified. Small bilateral pleural effusions are present, decreased in prominence since the prior study. Atelectatic changes at the lung bases are unchanged on the right and slightly decreased on the left. The cardiac shadow remains enlarged. Right subclavian transvenous cardiac pacing hardware is in place. Left central venous catheter tip is in the SVCregion. Signed: Betsy Riddle MDReport Verified Date/Time: 02/09/2020 16:48:59 Reading Location: [facility] Radiology Reading Room [facility] CenterANG, CV ACCESS, [id number] 16:24:00Reason for exam:- >tunneled line placement for home inotropes.FINAL REPORT Procedure: Tunneled power line placement History: Need for prolonged IV therapy. Concrete Smoother: Antolin Guevara MD. Professor Of Counseling: Not applicable, M.D. Modality: Sonography and fluoroscopy. DOSE REDUCTION: The examination was performed according to departmental dose-optimization program. Fluoro time: 1.8 Radiation dose: 5.6 mGy Air-Kerma. Number of images: 3 Sedation: No sedation. Vital signs were monitored throughout the pro cedure by a dedicated RN under direct supervision of Dr. Guevara, and remained stable. Medicines: Not applicable. Anesthesia: Lidocaine local infiltration. Physician intraprocedure sedation time was not applicable minutes. Estimated blood loss: < 5 cc. Technique: Discussion of risks, benefits, and alternatives were made with the patient. The patient expressed understanding and agreed to proceed. Informed written consent was obtained. A universal timeout was performed prior to starting the procedure. The procedure room personnel used personal protective equipment. The operators used sterile gowns and gloves additionally. A preliminary ultrasonogram was performed of the neck that revealed a patent and compressible left internal jugular vein. Pertinent ultrasound images were stored in the PACS for documentation. A sterile prep and drape of the left neck and upper chest was performed using standard technique. Using aseptic precautions, real-time ultrasound guidance, the internal jugular vein was accessed after local anesthetic infiltration and dermatotomy with a micropuncture needle. A 018 guidewire was advanced into the central venous system under fluoroscopic guidance. Over the wire a micropuncture sheath was placed. Through the micropuncture sheath, a 035 wire w as advanced into the venous system under fluoroscopic guidance. Over the wire a peel-away sheath wasplaced. After local anesthesia, an incision was created in the subclavicular exit site location and a catheter was tunneled from the exit site to the venotomy site using a tunneling device. The catheter was cut to an appropriate length and advanced into the venous system through the peel-away sheath which was removed. The catheter aspirated and flushed well and was terminally packed with heparinized saline. The catheter was secured to skin using nonabsorbable suture and a CHG dressing applied. The venotomy site was closed using Dermabond. An aseptic dressing was applied using the protocol for Dermabond. The patient was transferred to the recovery area and was discharged from the department in stable condition. Complications: None immediate. Device: 6 [place] dual-lumen powerline. Findings: Right-sided AICD recently placed. Right side cannot be used. 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 Patent and compressible left external jugular vein. Final image shows the catheter to be in good position with the catheter tip in the right atrium, an excellent position for use. There is no complication. Impression: Successful ultrasound andfluoroscopic guided left external jugular vein route dual lumen power line placement as described above. Thank you for the opportunity to assist in the care of your patient. Signed: Antolin Guevara MDReport Verified Date/Time: 02/09/2020 16:24:04 Reading Location: [place] [address] Angio Body Reading Room IR CV Access [id number] 16:24:00 Interface, External Ris In - 02/09/2020 4:26 PM CDTFINAL REPORT Procedure: Tunneled power line placement History: Need forprolonged IV therapy. Concrete Smoother: Antolin Guevara MD. Professor Of Counseling: Not applicable, M.D. Modality: Sonography and fluorosc opy. DOSE REDUCTION: The examination was performed according to departmental dose-optimization program. Fluoro time: 1.8 Radiation dose: 5.6 mGy Air-Kerma. Number of images: 3 Sedation: No sedation. Vital signs were monitored throughout the procedure by a dedicated RN under direct supervision of Dr. Guevara, and remained stable. Medicines: Not applicable. Anesthesia: Lidocaine local infiltration. Physician intraprocedure sedation time was not applicable minutes. Estimatedblood loss: < 5 cc. Technique: Discussion of risks, benefits, and alternatives were made with the patient. The patient expressed understanding and agreed to proceed. Informed written consent was obtained. A universal timeout was performed prior to starting the procedure. The procedure room personnel used personal protective equipment. The operators used sterile gowns and gloves additionally. A preliminary ultrasonogram was performed of the neck that revealed a patent and compressible left internal jugular vein. Pertinent ultrasound images were stored in the PACS for documentation. A sterile prep and drape of the left neck and upper chest was performed using standard technique. Using aseptic precautions, real-time ultrasound guidance, the internal jugular vein was accessed after localanesthetic infiltration and dermatotomy with a micropuncture needle. A 018 guidewire was advanced into the central venous system under fluoroscopic guidance. Over the wire a micropuncture sheath was pl aced. Through the micropuncture sheath, a 035 wire was advanced into the venous system under fluoroscopic guidance. Over the wire a peel-away sheath was placed. After local anesthesia, an incision was created in the subclavicular exit site location and a catheter was tunneled from the exit site to thevenotomy site using a tunneling device. The catheter was cut to an appropriate length and advanced into the venous system through the peel-away sheath which was removed. The catheter aspirated and flushed well and was terminally packed with heparinized saline. The catheter was secured to skin using nonabsorbable suture and a CHG dressing applied. The venotomy site was closed using Dermabond. An aseptic dressing was applied using the protocol for Dermabond. The patient was transferred to the [facility] and was discharged from the department in stable condition. Complications: None immediate. Device: 6 [place] dual-lumen power line. Findings: Right-sided AICD recently placed. Right side cannot be used. 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 Patent and compressible left external jugular vein. Final image shows the catheter to be in good position with the catheter tip in the right atrium, an excellent position for use. There is no complication. Impression: Successful ultrasound and fluoroscopic guided left external jugular vein route dual lumen power line placement as described above. Thank you for the opportunity to assist in the care of your patient. Signed: Antolin Guevara MDReport Verified Date/Time: 02/09/2020 16:24:04 Reading Location: [place] [id number] Angio Body Reading Room [facility] CenterPROTHROMBIN [id number] 12:42:00 Test Item Value Reference Range Interpretation Comments PROTIME (BEAKER) (test code = 17.7 seconds 11.9-14.2 H 759) INR (BEAKER) (test code = 370) 1.5 <=5.9 Effective 02/08/2019: PT Reference Range ChangeNew: 11.9-14.2 Previous: 11.7- 14.7RECOMMENDED COUMADIN/WARFARIN INR THERAPY RANGESSTANDARD DOSE: 2.0-3.0 Includes: PROPHYLAXIS for venous thrombosis, systemic embolization; TREATMENT for venous thrombosis and/or pulmonary embolus.HIGH RISK: Target INR is2.5-3.5 for patients wiht mechanical heart valves.HEMODIALYSIS [id number] 12:36:00Manan Foster RN 02/09/2020 12:36 PMLab Results Component Value Date GLUCOSE 158 (H) 02/08/2020 CALCIUM 9.1 02/08/2020 NA 141 02/08/2020 K 3.8 02/08/2020 CO2 25 02/08/2020 CL 105 02/08/2020 BUN 31 (H) 02/08/2020 CREATININE 3.11 (H) 02/08/2020 Lab Results Component Value Date WBC 9.0 02/09/2020 HGB 8.7 (L) 02/09/2020 HCT 28.6 (L) 02/09/2020 MCV 105.1 (H) 02/09/2020 PLT 217 02/09/2020 Results for RYAN STEVE RIVERA ( ) as of 02/09/2020 10:20 Ref. Range 01/23/2020 14:37 HBsAg Screen Latest Ref Range: Nonreactive Nonreactive HD X 4 hours completed. Net UF -1.1L .Patient hypotensive during treatment. Mannitol given X [address] Huang notified and order received to give albumin-given. Also, order received to give plasma- 1 unit given. BP improved after albumin. Manan Foster RNKaiser [facility]ermanente [facility] Medical CenterPOCT-GLUCOSE [id number] 11:55:00 Test Item Value Reference Range Interpretation Comments POC-GLUCOSE METER 116 mg/dL 70-110 H : TESTED A T [facility] 6720 (BEAKER) (test code = [facility] [place], 1538) [address]: Art Class Model/Techni jessica ID = [id number] for DEREK DUARTE, MANAN Type and screen, [id number] 06:09:00 Test Item Value Reference Range Interpretation Comments ABO/RH AUTOMATED (BEAKER) (test O POSITIVE code = 2260) Ab Scrn (test code = 890-4) NEGATIVE [facility] CenterPROTHROMBIN [id number] 05:37:00 Test Item Value Reference Range Interpretation Comments PROTIME (BEAKER) (test code = 23.9 seconds 11.9-14.2 H 759) INR (BEAKER) (test code = 370) 2.2 <=5.9 Effective 02/08/2019: PT Reference Range ChangeNew: 11.9-14.2 Previous: 11.7- 14.7RECOMMENDED COUMADIN/WARFARIN INR THERAPY RANGESSTANDARD DOSE: 2.0-3.0 Includes: PROPHYLAXIS for venous thrombosis, systemic embolization; TREATMENT for venous thrombosis and/or pulmonary embolus.HIGH RISK: Target INR is2.5-3.5 for patients wiht mechanical heart valves.While on warfarin.CBC (HEMOGRAM ONLY) 2020-02-09 05:32:00 Test Item Value Reference Range Interpretation Comments WHITE BLOOD CELL COUNT (BEAKER) 9.0 K/ L 3.5-10.5 (test code = 775) RED BLOOD CELL COUNT (BEAKER) 2.72 M/ L 4.63-6.08 L (test code = 761) HEMOGLOBIN (BEAKER) (test code = 8.7 GM/DL 13.7-17.5 L 410) HEMATOCRIT (BEAKER) (test code = 28.6 % 40.1-51.0 L 411) MEAN CORPUSCULAR VOLUME (BEAKER) 105.1 fL 79.0-92.2 H (test code = 753) MEAN CORPUSCULAR HEMOGLOBIN 32.0 pg 25.7-32.2 (BEAKER) (test code = 751) MEAN CORPUSCULAR HEMOGLOBIN CONC 30.4 GM/DL 32.3-36.5 L (BEAKER) (test code = 752) RED CELL DISTRIBUTION WIDTH 18.1 % 11.6-14.4 H (BEAKER) (test code = 412) PLATELET COUNT (BEAKER) (test 217 K/CU MM 150-450 code = 756) MEAN PLATELET VOLUME (BEAKER) 10.4 fL 9.4-12.4 (test code = 754) NUCLEATED RED BLOOD CELLS 0 /100 WBC 0-0 (BEAKER) (test code = 413) ECG 12 [id number] 22:17:58Interface, External Ris In - 02/08/2020 10:18 PM CDTVentricular Rate 81 BPMAtrial Rate 81 BPMP-R Interval 176 msQRS Duration 130 msQ-T Interval 482 msQTC Calculation(Bazett) 559 msP [place] -26 degreesR [place] -28 degreesT [place] 53 degreesAV dual-paced rhythm with occasional Premature ventricular complexesAbnormal ECGWhen compared with ECG of 06-FEB-2020 02:15,Premature ventricular complexes are now PresentConfirmed by MD Ravindra, Iliana ([id number]) on 02/08/2020 10:17:52 [facility] CenterPOCT-GLUCOSE [id number] 21:24:00 Test Item Value Reference Range Interpretation Comments POC-GLUCOSE METER 99 mg/dL 70-110 : TESTED A T [facility] 6720 (BEAKER) (test code = ARIS Shiv [facility], 1538) [address]: Art Class Model/Techni jessica ID = [id number] for FABI RIOS POCT-GLUCOSE [id number] 18:41:00 Test Item Value Reference Range Interpretation Comments POC-GLUCOSE METER 75 mg/dL 70-110 : TESTED A T [facility] 6720 (BEAKER) (test code = ARIS Chaney [facility], 1538) 87231: Art Class Model/Techni jessica ID = [id number] for [place] HEMODIALYSIS [id number] 18:34:40Madhu Michel RN 02/08/2020 6:39 PMHD x 4 hrs. UF net 750 ml. Unable to pull desired UF due to BP drops below [...] 141 02/08/2020 K 3.8 02/08/2020 CO2 25 02/08/2020CL 105 02/08/2020 BUN 31 (H) 02/08/2020 CREATININE 3.11 (H) 02/08/2020 Lab Results Component Value Date HEPBSAG Nonreactive 01/23/2020 Vitals: 02/08/20 1832 BP: 117/58 Pulse: 78 Resp: 18 Temp: 96.9 F (36.1 C) SpO2: 92%[facility] CenterU/S, [id number] 13:18:00Reason for exam:->eval right pleural effusionFINAL REPORT TECHNIQUE: Grayscale ultrasound of the right chest. INDICATION: eval right pleural effusion. COMPARISON: None. FINDINGS: There is a small to moderate-sized right pleural effusion which contains simple fluid with adjacent atelectatic lung. Signed: Ryan Willis Verified Date/Time: 02/08/2020 13:18:21 Reading Location: [facility] Diagnostic Imaging Reading Room [place] [address] [id number] 13:18:00 Interface, External Ris In - 02/08/2020 1:20 PM CDTFINAL REPORT TECHNIQUE: Grayscale ultrasound of the right chest. INDICATION: eval right pleural effusion. COMPARISON: None. FINDINGS: There is a small to moderate-sized right pleural effusion which contains simple fluid with adjacent atelectatic lung. Signed: Ryan Willis Verified Date/Time: 02/08/2020 13:18:21 Reading Location: [facility] Diagnostic Imaging Reading Room - [place] [address] [facility] CenterPOCT-GLUCOSE [id number] 11:28:00 Test Item Value Reference Range Interpretation Comments POC-GLUCOSE METER 110 mg/dL 70-110 : TESTED A T [facility] 6720 (BEAKER) (test code = ARIS Chaney [facility], 1538) [address]: Art Class Model/Techni jessica ID = [id number] for RED MAIN POCT-GLUCOSE [id number] 07:59:00 Test Item Value Reference Range Interpretation Comments POC-GLUCOSE METER 128 mg/dL 70-110 H : TESTED A T [facility] 6720 (BEAKER) (test code = ARIS Chaney [facility], 1538) 97[address]: Art Class Model/Techni jessica ID = [id number] for RED MAIN B-type Natriuretic Factor (BNP)2020-02-08 05:24:00 Test Item Value Reference Range Interpretation Comments BNP (test code = 85689-6) 62742 pg/mL 0-100 H JARRED (test code = JARRED) Art Class Model CHARLES Hamlin Lab Interpretation (test Abnormal code = 34856-5) [facility] CenterB-TYPE NATRIURETIC FACTOR (BNP)2020-02-08 05:24:00 Test Item Value Reference Range Interpretation Comments B-TYPE NATRIURETIC PEPTIDE 44735 pg/mL 0-100 H (BEAKER) (test code = 700) Art Class Model CHARLES Pereira [id number] 05:10:00 Test Item Value Reference Range Interpretation Comments Troponin I (test code = 19.86 ng/mL 0-0.03 07273-7) JARRED (test code = JARRED) Troponin I (TnI) levels must be interpreted in the context of the presenting symptoms and the clinical findings. Elevated TnI levels indicate myocardial damage, but are not specific for ischemic heart disease. Elevated TnI levels are seen in patients with other cardiac conditions (including myocarditis and congestive heart failure), and slight TnI elevations occur in patients with other conditions, including sepsis, renal failure, acidosis, acute neurological disease, and persistent tachyarrhythmia.Opera tor CHARLES Hamlin Lab Interpretation (test Abnormal code = 62697-3) [facility] CenterTROPONIN [id number] 05:10:00 Test Item Value Reference Range Interpretation Comments TROPONIN I (BEAKER) (test code = 19.86 ng/mL 0.00-0.03 397) Troponin I (TnI) levels must be interpreted in the context of the presenting symptoms and the clinical findings. Elevated TnI levels indicate myocardial damage, but are not specific for ischemic heart disease. Elevated TnI levels are seen in patients with other cardiac conditions (including myocarditis and congestive heart failure), and slight TnI elevations occur in patients with other conditions, including sepsis, renal failure, acidosis, acute neurological disease, and persistent tachyarrhythmia.Art Class Model CHARLES CARRERA ompselect medical [facility], [facility]ensive metabolic [id number] 05:01:00 Test Item Value Reference Range Interpretation Comments Protein, Total (test 6.8 6.0- 8.3 gm/dL code = 2885-2) Albumin (test code = 3.2 g/dL 3.5-5 L 38462-8) Alkaline Phosphatase 254 U/L 40-150 H (test code = 6768-6) Total Bilirubin (test 1.7 mg/dL 0.2-1.2 H code = 1975-2) Sodium (test code = 141 meq/L 430-510 2866-2) Potassium (test code = 3.8 meq/L 3.5-5.1 2823-3) Chloride (test code = 105 meq/L 98-107 2075-0) CO2 (test code = 25 meq/L 22-29 2028-9) BUN (test code = 31 mg/dL 7-21 H 3094-0) Creatinine (test code 3.11 mg/dL 0.57-1.25 H = 2160-0) Glucose (test code = 158 mg/dL 70-105 H 2345-7) Calcium (test code = 9.1 mg/dL 8.4-10.2 06460-8) AST (test code = 62 U/L 5-34 H 1920-8) ALT (test code = 31 U/L 6-55 1742-6) EGFR (test code = 19 mL/min/1.73 [place] [address]-1) NOT ACCURATE CREATININE CLEARANCE IN PREDICTING GLOMERULAR FILTRATION RATE . ESTIMATED GFR I S NOT APPLICABLE FOR DIALYSIS PATIENTS. JARRED (test code = JARRED) Art Class Model CHARLES CARRERA M Lab Interpretation Abnormal (test code = 02553-0) [facility] CenterCOMPREHENSIVE METABOLIC [id number] 05:01:00 Test Item Value Reference Range Interpretation Comments TOTAL PROTEIN 6.8 gm/dL 6.0-8.3 (BEAKER) (test code = 770) ALBUMIN (BEAKER) 3.2 g/dL 3.5-5.0 L (test code = 1145) ALKALINE PHOSPHATASE 254 U/L 40-150 H (BEAKER) (test code = 346) BILIRUBIN TOTAL 1.7 mg/dL 0.2-1.2 H (BEAKER) (test code = 377) SODIUM (BEAKER) (test 141 meq/L 136-145 code = 381) POTASSIUM (BEAKER) 3.8 meq/L 3.5-5.1 (test code = 379) CHLORIDE (BEAKER) 105 meq/L 98-107 (test code = 382) CO2 (BEAKER) (test 25 meq/L 22-29 code = 355) BLOOD UREA NITROGEN 31 mg/dL 7-21 H (BEAKER) (test code = 354) CREATININE (BEAKER) 3.11 mg/dL 0.57-1.25 H (test code = 358) GLUCOSE RANDOM 158 mg/dL 70-105 H (BEAKER) (test code = 652) CALCIUM (BEAKER) 9.1 mg/dL 8.4-10.2 (test code = 697) AST (SGOT) (BEAKER) 62 U/L 5-34 H (test code = 353) ALT (SGPT) (BEAKER) 31 U/L 6-55 (test code = 347) EGFR (BEAKER) (test 19 mL/min/1.73 ESTIMA MAI GFR IS code = 1092) sq m NOT ACCURATE CREATININE CLEARANCE IN PREDICTING GLOMERULAR FILTRATION RATE . ESTIMATED GFR I S NOT APPLICABLE FOR DIALYSIS PATIEN TS. Art Class Model ID - DEANDRE [id number] 05:00:00 Test Item Value Reference Range Interpretation Comments Magnesium (test code = 2.2 mg/dL 1.6-2.6 80511-5) JARRED (test code = JARRED) Art Class Model ID - DEANDRE M Lab Interpretation (test Normal code = 29027-7) [facility] CenterPhosphorus2020-05-28 05:00:00 Test Item Value Reference Range Interpretation Comments Phosphorus (test code = 3.2 mg/dL 2.3-4.7 2777-1) JARRED (test code = JARRED) Art Class Model ID Jama CARRERA M Lab Interpretation (test Normal code = 80939-2) [facility] 05:00:00 Test Item Value Reference Range Interpretation Comments PHOSPHORUS (BEAKER) (test code = 3.2 mg/dL 2.3-4.7 604) Art Class Model ID - DEANDRE [id number] 05:00:00 Test Item Value Reference Range Interpretation Comments MAGNESIUM (BEAKER) (test code = 2.2 mg/dL 1.6-2.6 627) Art Class Model ID - DEANDRE MPROTHROMBIN [id number] 04:53:00 Test Item Value Reference Range Interpretation Comments PROTIME (BEAKER) (test code = 30.7 seconds 11.9-14.2 H 759) INR (BEAKER) (test code = 370) 3.0 <=5.9 Effective 02/08/2019: PT Reference Range ChangeNew: 11.9-14.2 Previous: 11.7- 14.7RECOMMENDED COUMADIN/WARFARIN INR THERAPY RANGESSTANDARD DOSE: 2.0-3.0 Includes: PROPHYLAXIS for venous thrombosis, systemic embolization; TREATMENT for venous thrombosis and/or pulmonary embolus.HIGH RISK: Target INR is2.5-3.5 for patients wiht mechanical heart valves.While on warfarin.POC-Blood gases, [id number] 04:45:00 Test Item Value Reference Range Interpretation Comments Temp. Celsius-POC (test 96.9 code = 1834) FIO2-POC (test code = 21 5) pH, Arterial-POC (test 7.476 7.350-7.450 H code = 1836) PCO2, Arterial-POC (test 34.8 35.0- 45.0 mm Hg L code = 1837) PO2, Arterial-POC (test 63.0 80.0- 90.0 mm Hg L code = 1838) SO2, Arterial-POC (test 94.0 % 96-97 L code = 1839) HCO3, Arterilal-POC 25.9 meq/L 21-29 (test code = 1840) BE, Arterial-POC (test 2.0 meq/L -2-3 : EDILBERTO MAI AT [facility] code = 1841) [address] [place] [address], 770 30: Art Class Model/Techni brenton n ID = [id number] f or URCIA, FAMELA Lab Interpretation (test Abnormal code = 66121-8) [facility]-Calcium [id number] 04:45:00 Test Item Value Reference Range Interpretation Comments POC-Calcium Ionized 1.19 mmol/L 1.12-1.27 : TESTED AT [facility] (test code = 1536) [address] [place] [address], [address] 30: Art Class Model/Techni brenton n ID = [id number] f or URCIA, FAMELA Lab Interpretation (test Normal code = 67069-5) [facility]-[id number] 04:45:00 Test Item Value Reference Range Interpretation Comments POC-Potassium (test code 3.6 meq/L 3.6-5.5 : T ESTED AT [facility] = 1540) [address] [place] [address], [facility] 30: Art Class Model/Techni jessica ID = [id number] for URCIA, FAMELA Lab Interpretation (test Normal code = 02569-1) [facility]-[id number] 04:45:00 Test Item Value Reference Range Interpretation Comments POC-Sodium (test code = 139 meq/L 135-148 : TE STED AT [facility] 1542) [address] [place] [address], [facility] 30: Art Class Model/Techni jessica ID = [id number] for URCIA, FAMELA Lab Interpretation (test Normal code = 10944-6) [facility]-[id number] 04:45:00 Test Item Value Reference Range Interpretation Comments POC-Glucose (test code = 159 mg/dL 70-110 H : T ESTED AT [facility] 1855) [address] [place] [address], [facility] 30: Art Class Model/Techni jessica ID = [id number] for URCIA, FAMELA Lab Interpretation (test Abnormal code = 88125-0) [facility]-[id number] 04:45:00 Test Item Value Reference Range Interpretation Comments POC-Hemoglobin (test code 9.5 g/dL 13-16.8 L : TESTED AT [facility] = 1856) [address] [place] [address] [place], 770 30: Art Class Model/Techni jessica ID = [id number] for URCIA, FAMELA Lab Interpretation (test Abnormal code = 02073-3) [facility] CenterPOCT-[id number] 04:45:00 Test Item Value Reference Range Interpretation Comments POC-Hematocrit (test code 28 % 40-50 L : = 1857) Art Class Model/Techni jessica ID = [id number] for URCIA, FAMELA Lab Interpretation (test Abnormal code = 73420-7) [facility]-BLOOD GASES, [id number] 04:45:00 Test Item Value Reference Range Interpretation Comments TEMP, CELSIUS-POC 96.9 (BEAKER) (test code = 1834) FIO2-POC (BEAKER) 21 (test code = 1835) PH, ARTERIAL-POC 7.476 7.350-7.450 H (BEAKER) (test code = 1836) PCO2, ARTERIAL-POC 34.8 mm Hg 35.0-45.0 L (BEAKER) (test code = 1837) PO2, ARTERIAL-POC 63.0 mm Hg 80.0-90.0 L (BEAKER) (test code = 1838) SO2, ARTERIAL-POC 94.0 % 96.0-97.0 L (BEAKER) (test code = 1839) HCO3, ARTERIAL-POC 25.9 meq/L 21.0-29.0 (BEAKER) (test code = 1840) BASE EXCESS, 2.0 meq/L -2.0-3.0 : TESTED AT [facility] 6720 ARTERIAL-POC [facility], (BEAKER) (test code 87423: = 1841) Art Class Model/Techni jessica ID = [id number] for UR BRENTON, FAMELA [id number] 04:45:00 Test Item Value Reference Range Interpretation Comments POC-SODIUM (BEAKER) 139 meq/L 135-148 : TESTED AT [facility] 6720 (test code = 1542) [facility], [address]: Art Class Model/Techni jessica ID = [id number] for URCI A, FAMELA [id number] 04:45:00 Test Item Value Reference Range Interpretation Comments POC-POTASSIUM 3.6 meq/L 3.6-5.5 : TESTED AT [facility] 67 [facility] (test code [facility], = 1540) [address]: Art Class Model/Techni jessica ID = [id number] for URCI A, FAMELA [id number] 04:45:00 Test Item Value Reference Range Interpretation Comments POC-HEMOGLOBIN 9.5 g/dL 13.0-16.8 L : TESTED AT [facility] 67 ([facility]) (test code = ARIS Chaney [facility], 1856) [address]: Art Class Model/Techni jessica ID = [id number] for URCI A, FAMELA [id number] 04:45:00 Test Item Value Reference Range Interpretation Comments POC-HEMATOCRIT 28 % 40-50 L : Art Class Model/Te chnician ID = ([facility]) (test code = 027327 for URCIA, FAMELA 185) POCT-CALCIUM [id number] 04:45:00 Test Item Value Reference Range Interpretation Comments POC-CALCIUM IONIZED 1.19 mmol/L 1.12-1.27 : TESTED AT [facility] ([facility]) (test code = [address] [facility] 1536) [place], [address]: Art Class Model/Techni jessica ID = [id number] for URCIA, FAMELA [id number] 04:45:00 Test Item Value Reference Range Interpretation Comments POC-GLUCOSE ([facility]) 159 mg/dL 70-110 H : TESTE D AT [facility] 67 (test code = 1855) [facility], [address]: Art Class Model/Techni jessica ID = [id number] for URCI A, FAMELA CBC (HEMOGRAM ONLY)2020-02-08 04:43:00 Test Item Value Reference Range Interpretation Comments WHITE BLOOD CELL COUNT ([facility]) 13.9 K/ L 3.5-10.5 H (test code = 775) RED BLOOD CELL COUNT (AKER) 2.85 M/ L 4.63-6.08 L (test code = 761) HEMOGLOBIN (BEAKER) (test code = 9.1 GM/DL 13.7-17.5 L 410) HEMATOCRIT ([facility]) (test code = 29.0 % 40.1-51.0 L 411) MEAN CORPUSCULAR VOLUME (BEAKER) 101.8 fL 79.0-92.2 H (test code = 753) MEAN CORPUSCULAR HEMOGLOBIN 31.9 pg 25.7-32.2 (BEAKER) (test code = 751) MEAN CORPUSCULAR HEMOGLOBIN CONC 31.4 GM/DL 32.3-36.5 L (BEAKER) (test code = 752) RED CELL DISTRIBUTION WIDTH 17.5 % 11.6-14.4 H (BEAKER) (test code = 412) PLATELET COUNT (BEAKER) (test 313 K/CU MM 150-450 code = 756) MEAN PLATELET VOLUME (BEAKER) 10.4 fL 9.4-12.4 (test code = 754) NUCLEATED RED BLOOD CELLS 0 /100 WBC 0-0 (BEAKER) (test code = 413) RAD, CHEST, 1 VIEW, NON [id number] 04:24:00Reason for exam:->SOBShould this be performed at the bedside?->YesFINAL REPORT RAD, CHEST, 1 VIEW, NON DEPT INDICATION: SOB COMPARISON: Prior day's exam FINDINGS: Portable frontal view of the chest. IMPRESSION: Support Lines: Stable. Lungs and pleura: Unchanged airspace and pleural opacities. No pneumothorax.Heart and mediastinum: Stable contours. Stable surgical changes.Additional findings: None. Signed: Amy Whitmore Verified Date/Time: 02/08/2020 04:24:48 POCT-GLUCOSE [id number] 21:00:00 Test Item Value Reference Range Interpretation Comments POC-GLUCOSE METER 170 mg/dL 70-110 H : TESTED A T [facility] 6720 (BEAKER) (test code = [facility] Chaney [facility], 1538) [address]: Art Class Model/Techni jessica ID = [id number] for Christine jessenelda Alyssa POCT-GLUCOSE [id number] 16:40:00 Test Item Value Reference Range Interpretation Comments POC-GLUCOSE METER 132 mg/dL 70-110 H : TESTED A T [facility] 6720 (BEAKER) (test code = ARIS Chaney [facility], 1538) [address]: Art Class Model/Techni jessica ID = [id number] for HIRAL AGUSTIN HEMODIALYSIS [id number] 15:15:50Chu, Madhu Walls RN 02/07/2020 3:17 PMHD x 4 hrs. UF net 2L. Given 3 doses of mannitol for BP support, see MAR. Unable to pull desired UF due to BP was labile. Pt awake and alert, not in distress.Lab Results Component Value Date WBC 12.4 (H) 02/07/2020 HGB 8.5 (L) 02/07/2020 HCT 26.7 (L) 02/07/2020 MCV 101.5 (H) 02/07/2020 PLT 284 02/07/2020 Lab Results Component Value Date GLUCOSE 92 02/07/2020 CALCIUM 8.3 (L) 02/07/2020 NA 139 02/07/2020 K 3.9 02/07/2020 CO2 25 02/07/2020 CL 8002202/07/2020 BUN 36 (H) 02/07/2020 CREATININE 3.67 (H) 02/07/2020 Lab Results Component Value Date HEPBSAG Nonreactive 01/23/2020 Vitals: 02/07/20 1500 BP: 107/48 Pulse: 80 Resp: 17 Temp: 97.5 F (36.4 C) SpO2: 97%[facility]PO[facility] [id number] 11:33:00 Test Item Value Reference Range Interpretation Comments POC-GLUCOSE METER 125 mg/dL 70-110 H : TESTED A T [facility] 6720 (BEPolisofia) (test code = [facility] Shiv [facility], 1538) [address]: Art Class Model/Techni jessica ID = [id number] for CO TIFFANIE VIDES POCT-GLUCOSE [id number] 07:44:00 Test Item Value Reference Range Interpretation Comments POC-GLUCOSE METER 74 mg/dL 70-110 : TESTED A T [facility] 6720 (BEAKER) (test code = ARIS Chaney [facility], 1538) [address]: Art Class Model/Techni jessica ID = [id number] for HIRAL WALLIS [id number] 05:15:00 Test Item Value Reference Range Interpretation Comments MAGNESIUM (BEAKER) (test code = 2.4 mg/dL 1.6-2.6 627) Art Class Model ID - DANIEL LBASIC METABOLIC [id number] 05:15:00 Test Item Value Reference Range Interpretation Comments SODIUM (BEAKER) 139 meq/L 136-145 (test code = 381) POTASSIUM (BEAKER) 3.9 meq/L 3.5-5.1 (test code = 379) CHLORIDE (BEAKER) 102 meq/L 98-107 (test code = 382) CO2 (BEAKER) (test 25 meq/L 22-29 code = 355) BLOOD UREA NITROGEN 36 mg/dL 7-21 H (BEAKER) (test code = 354) CREATININE (BEAKER) 3.67 mg/dL 0.57-1.25 H (test code = 358) GLUCOSE RANDOM 92 mg/dL 70-105 (BEAKER) (test code = 652) CALCIUM (BEAKER) 8.3 mg/dL 8.4-10.2 L (test code = 697) EGFR (BEAKER) (test 16 mL/min/1.73 ESTIMA MAI GFR IS code = 1092) sq m NOT ACCURATE CREATININE CLEARANCE IN PREDICTING GLOMERULAR FILTRATION RATE . ESTIMATED GFR I S NOT APPLICABLE FOR DIALYSIS PATIEN TS. Art Class Model ID - PIAYA LPROTHROMBIN [id number] 04:54:00 Test Item Value Reference Range Interpretation Comments PROTIME (BEAKER) (test code = 37.3 seconds 11.9-14.2 H 759) INR (BEAKER) (test code = 370) 3.9 <=5.9 Effective 02/08/2019: PT Reference Range ChangeNew: 11.9-14.2 Previous: 11.7- 14.7RECOMMENDED COUMADIN/WARFARIN INR THERAPY RANGESSTANDARD DOSE: 2.0-3.0 Includes: PROPHYLAXIS for venous thrombosis, systemic embolization; TREATMENT for venous thrombosis and/or pulmonary embolus.HIGH RISK: Target INR is2.5-3.5 for patients wiht mechanical heart valves.While on warfarin.CBC (HEMOGRAM ONLY) 2020-02-07 04:43:00 Test Item Value Reference Range Interpretation Comments WHITE BLOOD CELL COUNT (BEAKER) 12.4 K/ L 3.5-10.5 H (test code = 775) RED BLOOD CELL COUNT (BEAKER) 2.63 M/ L 4.63-6.08 L (test code = 761) HEMOGLOBIN (BEAKER) (test code = 8.5 GM/DL 13.7-17.5 L 410) HEMATOCRIT (BEAKER) (test code = 26.7 % 40.1-51.0 L 411) MEAN CORPUSCULAR VOLUME (BEAKER) 101.5 fL 79.0-92.2 H (test code = 753) MEAN CORPUSCULAR HEMOGLOBIN 32.3 pg 25.7-32.2 H (BEAKER) (test code = 751) MEAN CORPUSCULAR HEMOGLOBIN CONC 31.8 GM/DL 32.3-36.5 L (BEAKER) (test code = 752) RED CELL DISTRIBUTION WIDTH 17.2 % 11.6-14.4 H (BEAKER) (test code = 412) PLATELET COUNT (BEAKER) (test 284 K/CU MM 150-450 code = 756) MEAN PLATELET VOLUME (BEAKER) 10.5 fL 9.4-12.4 (test code = 754) NUCLEATED RED BLOOD CELLS 0 /100 WBC 0-0 (BEAKER) (test code = 413) Respiratory Panel [id number] 22:35:00 Test Item Value Reference Range Interpretation Comments Human Metapneumovirus Not detected Not detected, (test code = 82419-8) Equivocal Rhinovirus (test code = Not detected Not detected, 81466-5) Equivocal INFLUENZA A (NO Not detected Not detected, SUBTYPE) (test code = Equivocal 78210-0) Influenza A subtype H1 (test code = 63557-2) Influenza A Subtype H3 (test code = 68854-0) Influenza A Subtype H1-2009 (test code = 60667-6) Influenza B (test code Not detected Not detected, = 66949-2) Equivocal Respiratory Syncytial Not detected Not detected, Virus (test code = Equivocal 22590-8) Parainfluenza Virus 1 Not detected Not detected, (test code = 77194-1) Equivocal Parainfluenza Virus 2 Not detected Not detected, (test code = 84337-8) Equivocal Parainfluenza virus 3 Not detected Not detected, (test code = 10434-3) Equivocal Parainfluenza Virus 4 Not detected Not detected, (test code = 21952-4) Equivocal Adenovirus (test code = Not detected Not detected, 41966-2) Equivocal Coronavirus 229E (test Not detected Not detected, code = 93755-6) Equivocal Coronavirus HKU1 (test Not detected Not detected, code = 37377-6) Equivocal Coronavirus NL63 (test Not detected Not detected, code = 29178-4) Equivocal Coronavirus OC43 (test Not detected Not detected, code = 83688-3) Equivocal Bordetella Pertussis Not detected Not detected, (test code = 04909-0) Equivocal Chlamydophila Not detected Not detected, Pneumoniae (test code = Equivocal 82811-6) Mycoplasma Pneumoniae Not detected Not detected, (test code = 33690-3) Equivocal JARRED (test code = JARRED) Other viruses and bacteria not targeted by this PCR panel cannot be excluded; therefore clinical correlation and follow up of serology, culture results, and other molecular studies is required. The results are not intended to be used as the sole means for clinical diagnosis or patient management decisions. This sample was tested at the [facility]ostics Laboratory using the Otus LabsArray Respiratory Panel. It is FDA cleared and has been verified and approved by the [facility] for clinical use on nasopharyngeal swab specimens. The performance of the FilmArray RP has not been established in individuals who received influenza vaccine. Recent administration of a nasal influenza vaccine may cause false positive results for Influenza A and/orInfluenza B. [facility] CenterRESPIRATORY PANEL [id number] 22:35:00 Test Item Value Reference Range Interpretation Comments HUMAN METAPNEUMOVIRUS Not detected Not detected, (BEAKER) (test code = 2683) Equivocal RHINOVIRUS (BEAKER) (test Not detected Not detected, code = 2684) Equivocal INFLUENZA A (BEAKER) (test Not detected Not detected, code = 2685) Equivocal INFLUENZA A (NO SUBTYPE) (test code = 3606) INFLUENZA A SUBTYPE H1 (BEAKER) (test code = 2686) INFLUENZA A SUBTYPE H3 (BEAKER) (test code = 2687) INFLUENZA A SUBTYPE H1-2009 (BEAKER) (test code = 3198) INFLUENZA B (BEAKER) (test Not detected Not detected, code = 2688) Equivocal RESPIRATORY SYNCYTIAL VIRUS Not detected Not detected, (BEAKER) (test code = 3199) Equivocal PARAINFLUENZA VIRUS 1 Not detected Not detected, (BEAKER) (test code = 2691) Equivocal PARAINFLUENZA VIRUS 2 Not detected Not detected, (BEAKER) (test code = 2692) Equivocal PARAINFLUENZA VIRUS 3 Not detected Not detected, (BEAKER) (test code = 2693) Equivocal PARAINFLUENZA VIRUS 4 Not detected Not detected, (BEAKER) (test code = 3200) Equivocal ADENOVIRUS (BEAKER) (test Not detected Not detected, code = 2694) Equivocal CORONAVIRUS 229E (BEAKER) Not detected Not detected, (test code = 3201) Equivocal CORONAVIRUS HKU1 (BEAKER) Not detected Not detected, (test code = 3202) Equivocal CORONAVIRUS NL63 (BEAKER) Not detected Not detected, (test code = 3203) Equivocal CORONAVIRUS OC43 (BEAKER) Not detected Not detected, (test code = 3204) Equivocal BORDETELLA PERTUSSIS Not detected Not detected, (BEAKER) (test code = 3205) Equivocal CHLAMYDOPHILA PNEUMONIAE Not detected Not detected, (BEAKER) (test code = 3206) Equivocal MYCOPLASMA PNEUMONIAE Not detected Not detected, (BEAKER) (test code = 3207) Equivocal Other viruses and bacteria not targeted by this PCR panel cannot be excluded; therefore clinical correlation and follow up of serology, culture results, and other molecular studies is required. The results are not intended to be used as the sole means for clinical diagnosis or patient management decisions. This sample was tested at the [facility] Molecular Diagnostics Laboratory using the Otus LabsArray Respiratory Panel. It is FDA cleared and has been verified and approved by the [facility] Molecular [facility]ostics Laboratory for clinical use on nasopharyngeal swab specimens.The performance of the FilmArrayRP has not been established in individuals who received influenza vaccine. Recent administration ofa nasal influenza vaccine may cause false positive results for Influenza A and/orInfluenza B.POCT-GLUCOSE [id number] 21:59:00 Test Item Value Reference Range Interpretation Comments POC-GLUCOSE METER 149 mg/dL 70-110 H : TESTED A T [facility] 6720 ([facility]) (test code = [place], 1538) [address]: Art Class Model/Techni jessica ID = [id number] for JOSE GARCIALIBBY Rapid Influenza A&B [id number] 21:11:00 Test Item Value Reference Range Interpretation Comments Rapid Influenza A Antigen Negative Negative, Inconclusive (test code = 96968-3) Rapid influenza B Antigen Negative Negative, Inconclusive (test code = 12699-6) Lab Interpretation (test code Normal = 66632-6) [facility] Center[facility]ID INFLUEN[facility] A&B [id number] 21:11:00 Test Item Value Reference Range Interpretation Comments RAPID INFLUENZA A AG (BEAKER) Negative Negative, Inconclusive (test code = 1622) RAPID INFLUENZA B AG (BEAKER) Negative Negative, Inconclusive (test code = 1623) POCT-GLUCOSE [id number] 17:01:00 Test Item Value Reference Range Interpretation Comments POC-GLUCOSE METER 119 mg/dL 70-110 H : TESTED A T [facility] 6720 (BEAKER) (test code = ARIS Chaney [facility], 1538) [address]: Art Class Model/Techni jessica ID = [id number] for BUCKY BONILLA HEMODIALYSIS [id number] 17:00:00Uriel Larry RN 02/06/2020 5:17 PMLab Results Component Value Date WBC 11.1 (H) 02/06/2020 HGB 9.3 (L) 02/06/2020 HCT 29.9 (L) 02/06/2020 MCV 98.7 (H) 02/06/2020 PLT 269 02/06/2020 Lab Results Component Value Date GLUCOSE 120 (H) 02/06/2020 CALCIUM 8.5 02/06/2020 NA 139 02/06/2020 K 5.0 02/06/2020 CO2 26 02/06/2020 CL 99 02/06/2020 BUN 58 (H) 02/06/2020 CREATININE 5.57 (H) 02/06/2020 HD treatment x4 hours completed,UF 3liters removed as ordered,no complaints,report given to primary nurse Tiffanie patient stable.Uriel Larry RNKaiser Permanente [facility] Medical CenterLimited 2D [id number] 14:22:05Ejection FractionSLEH ECHO HEARTLAB MKCKESSON CPACSInterface, External Ris In - 02/06/2020 2:22 PM C DTTransthoracic Echocardiography Report (TTE) Demographics Patient Name STEVE GAMEZ Date of Study 02/06/2020 MIGUEL Gender Male Visit Number [id number] Race Unknown Room Number 6107 Number Date of 1935 Referring Physician Rashad Singh MD Age 84 year(s) 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 Kisha MD Physician Fellow Rich Fairchild MD Procedure Type of Study TTE procedure:LIMITED 2D ECHOCARDIOGRAM (Routine) Indications:Acute Chest Pain/ Suspected CAD.Clinical HistoryAICD 01/26/2020, ESRD on HD, CAD s/p ACB 01/23/2020, DM, HTN, Acuterespiratory insufficiency, ICMP, Hypotension, Cardiogenic shock, Fluidoverload, PAFHGB 9.3HCT 29.9 %Contrast Medium: Definity. Amount - 2 mlHeight: 66 inches Weight: 66.22 kg (146 lbs) BSA: 1.75 m^2 BMI: 23.56 kg/m^2HR: 87 bpm BP: 95/56 mmHg Summary Global LV systolic function severely reduced . The following segments appear akinetic: mid-distal anterior septum and all apical segments. Basal to mid inferolateral and lateral, basal inferior, basal anterior wall segments contract normally. All other segment are severely hypokinetic. Severely increased left ventricle cavity size. LVEF by Cleary's method of disk assessment is severely reduced (25-29%) . Spontaneous contrast observed in LV cavity. LA size ismoderately enlarged (42-48 ml/m2) . RV chamber size is mildly enlarged . Global RV systolic functionis depressed . RA size is mildly dilated. Estimated peak systolic PA pressure is 45-50 mmHg (mild pul monary hypertension) The estimated RA pressure by IVC dynamics 16-20 mmHg . No significant pericardial effusion. There is a large left pleural effusion Previous Study Compared to the previous study on01/30/2020, the following changes are observed: large left pleural effusion, increased PASP, RAP, decreased RV systolic function. Signature Findings Technical Quality: Technically difficult exam. Rhythm/BP Indeterminate rhythm during the exam. Left Ventricle Normal LV wall thickness. Severely increased left ventricle cavity size. LVEF by Cleary's method of disk assessment is severely reduced (25-29%) . The following segments appear akinetic: mid-distal anterior septum and all apical segments. Basal to mid inferolateral and lateral, basal inferior, basal anterior wall segments contract normally. All other segment are severely hypokinetic. Spontaneous contrast observed in LV cavity. Global LV systolic function severely reduced . Diastolic dysfunction is likely due to concomitant heart disease. Left Atrium LA size is moderately enlarged (42-48 ml/m2) . Right Ventricle RV chamber size is mildly enlarged . Global RV systolic function is depressed . Right Atrium RA size is mildly dilated. Atrial Septum Normal interatrial septum by available views. Aortic Valve Normal AoV structure. Doppler of the aortic valve was not obtained. Mitral Valve Normal MV structure. Mitral valve Doppler was not obtained. Tricuspid Valve Mild tricuspid regurgitation. TV structure is normal. Estimated peak systolic PA pressure is 45-50 mmHg (mild pulmonary hypertension) Mean PA pressure is 34 based on PI velocity. Pulmonic Valve Normal PV structure. Mild to moderate GA is present. Aorta Aortic root size (SInus of Valsalva diameter) is normal . Pericardium No significant pericardial effusion. There is a large left pleural effusion IVC/SVC/PA/PV/Pleural The estimated RA pressure by IVC dynamics 16-20 mmHg . Chambers/Structures Left AtriumLA Volume: 75.64 ml LA Area: 22.32 cm^2 [...] 14.92 cm Aorta Ao Root S of Shruthi.: 3.43 cm Doppler/Quantitative Measurements LVOT LVOT Diameter: 2.23 cm LVOT Area: 3.91 cm^2 RVOT RVOT VTI (PW): 15.53 cm Tricuspid Valve TR Velocity: 2.61 m/s TR Gradient: 27.16 mmHg Pulmonic Valve PI Peak Velocity: 2.45 m/sCHI Sierra Vista Regional Medical CenterRAD, CHEST, 1 VIEW, NON [id number] 12:41:00Reason for exam:- >Dyspnea, hypoxemiaShould this be performed at the bedside?->YesFINAL REPORT CLINICAL HISTORY: Dyspnea, hypoxemia TECHNIQUE: 1 view of the chest. COMPARISON: 02/05/2020 IMPRESSION: Bilateral lower lung airspace opacities and small pleural effusions are grossly unchanged. The cardiomediastinal silhouette is magnified by technique with sternotomy wires and a pacemaker. Signed: Adelfo Raygoza MDReport Verified Date/Time: 02/06/2020 12:41:49 Reading Location: [facility] Radiology Reading Room POCT- GLUCOSE [id number] 11:51:00 Test Item Value Reference Range Interpretation Comments POC-GLUCOSE METER 142 mg/dL 70-110 H : TESTED A T [facility] 6720 (BEAKER) (test code = [place], 1538) [address]: Art Class Model/Techni jessica ID = [id number] for [facility] BASIC METABOLIC [id number] 09:54:00 Test Item Value Reference Range Interpretation Comments SODIUM (BEAKER) 139 meq/L 136-145 (test code = 381) POTASSIUM (BEAKER) 4.8 meq/L 3.5-5.1 (test code = 379) CHLORIDE (BEAKER) 100 meq/L 98-107 (test code = 382) CO2 (BEAKER) (test 23 meq/L 22-29 code = 355) BLOOD UREA NITROGEN 50 mg/dL 7-21 H (BEAKER) (test code = 354) CREATININE (BEAKER) 5.00 mg/dL 0.57-1.25 H (test code = 358) GLUCOSE RANDOM 99 mg/dL 70-105 (BEAKER) (test code = 652) CALCIUM (BEAKER) 8.8 mg/dL 8.4-10.2 (test code = 697) EGFR (BEAKER) (test 11 mL/min/1.73 ESTIMA MAI GFR IS code = 1092) sq m NOT ACCURATE CREATININE CLEARANCE IN PREDICTING GLOMERULAR FILTRATION RATE . ESTIMATED GFR I S NOT APPLICABLE FOR DIALYSIS PATIEN TS. Art Class Model ID - LATROPONIN [id number] 09:38:00 Test Item Value Reference Range Interpretation Comments TROPONIN I (BEAKER) (test code = 31.92 ng/mL 0.00-0.03 HH 397) Troponin I (TnI) levels must be interpreted in the context of the presenting symptoms and the clinical findings. Elevated TnI levels indicate myocardial damage, but are not specific for ischemic heart disease. Elevated TnI levels are seen in patients with other cardiac conditions (including myocarditis and congestive heart failure), and slight TnI elevations occur in patients with other conditions, including sepsis, renal failure, acidosis, acute neurological disease, and persistent tachyarrhythmia.Art Class Model ID - LABASIC METABOLIC PANEL 2020-02-06 09:23:00 Test Item Value Reference Range Interpretation Comments SODIUM (BEAKER) 139 meq/L 136-145 (test code = 381) POTASSIUM (BEAKER) 5.0 meq/L 3.5-5.1 (test code = 379) CHLORIDE (BEAKER) 99 meq/L 98-107 (test code = 382) CO2 (BEAKER) (test 26 meq/L 22-29 code = 355) BLOOD UREA NITROGEN 58 mg/dL 7-21 H (BEAKER) (test code = 354) CREATININE (BEAKER) 5.57 mg/dL 0.57-1.25 H (test code = 358) GLUCOSE RANDOM 120 mg/dL 70-105 H (BEAKER) (test code = 652) CALCIUM (BEAKER) 8.5 mg/dL 8.4-10.2 (test code = 697) EGFR (BEAKER) (test 10 mL/min/1.73 ESTIMA MAI GFR IS code = 1092) sq m NOT ACCURATE CREATININE CLEARANCE IN PREDICTING GLOMERULAR FILTRATION RATE . ESTIMATED GFR I S NOT APPLICABLE FOR DIALYSIS PATIEN TS. Art Class Model ID - LAPOCT-GLUCOSE [id number] 08:04:00 Test Item Value Reference Range Interpretation Comments POC-GLUCOSE METER 125 mg/dL 70-110 H : TESTED A T [facility] 6720 (BEAKER) (test code = [place], 1538) [address]: Art Class Model/Techni jessica ID = [id number] for BUCKY BONILLA TROPONIN [id number] 05:51:00 Test Item Value Reference Range Interpretation Comments TROPONIN I (BEAKER) (test code = 34.89 ng/mL 0.00-0.03 HH 397) Troponin I (TnI) levels must be interpreted in the context of the presenting symptoms and the clinical findings. Elevated TnI levels indicate myocardial damage, but are not specific for ischemic heart disease. Elevated TnI levels are seen in patients with other cardiac conditions (including myocarditis and congestive heart failure), and slight TnI elevations occur in patients with other conditions, including sepsis, renal failure, acidosis, acute neurological disease, and persistent tachyarrhythmia.Art Class Model ID - LAPROTHROMBIN TIME/INR 2020-02-06 05:18:00 Test Item Value Reference Range Interpretation Comments PROTIME (BEAKER) (test code = 35.3 seconds 11.9-14.2 H 759) INR (BEAKER) (test code = 370) 3.6 <=5.9 Effective 02/08/2019: PT Reference Range ChangeNew: 11.9-14.2 Previous: 11.7- 14.7RECOMMENDED COUMADIN/WARFARIN INR THERAPY RANGESSTANDARD DOSE: 2.0-3.0 Includes: PROPHYLAXIS for venous thrombosis, systemic embolization; TREATMENT for venous thrombosis and/or pulmonary embolus.HIGH RISK: Target INR is2.5-3.5 for patients wiht mechanical heart valves.While on warfarin.CBC (HEMOGRAM ONLY) 2020-02-06 05:05:00 Test Item Value Reference Range Interpretation Comments WHITE BLOOD CELL COUNT (BEAKER) 11.1 K/ L 3.5-10.5 H (test code = 775) RED BLOOD CELL COUNT (BEAKER) 3.03 M/ L 4.63-6.08 L (test code = 761) HEMOGLOBIN (BEAKER) (test code = 9.3 GM/DL 13.7-17.5 L 410) HEMATOCRIT (BEAKER) (test code = 29.9 % 40.1-51.0 L 411) MEAN CORPUSCULAR VOLUME (BEAKER) 98.7 fL 79.0-92.2 H (test code = 753) MEAN CORPUSCULAR HEMOGLOBIN 30.7 pg 25.7-32.2 (BEAKER) (test code = 751) MEAN CORPUSCULAR HEMOGLOBIN CONC 31.1 GM/DL 32.3-36.5 L (BEAKER) (test code = 752) RED CELL DISTRIBUTION WIDTH 17.2 % 11.6-14.4 H (BEAKER) (test code = 412) PLATELET COUNT (BEAKER) (test 269 K/CU MM 150-450 code = 756) MEAN PLATELET VOLUME (BEAKER) 10.8 fL 9.4-12.4 (test code = 754) NUCLEATED RED BLOOD CELLS 0 /100 WBC 0-0 (BEAKER) (test code = 413) COMPREHENSIVE METABOLIC [id number] 02:10:00 Test Item Value Reference Range Interpretation Comments TOTAL PROTEIN 6.9 gm/dL 6.0-8.3 Specimen sligh tly (BEAKER) (test code = hemoly zed 770) ALBUMIN (BEAKER) 3.1 g/dL 3.5-5.0 L Specimen sl ightly (test code = 1145) hemolyzed ALKALINE PHOSPHATASE 280 U/L 40-150 H (BEAKER) (test code = 346) BILIRUBIN TOTAL 1.7 mg/dL 0.2-1.2 H Specimen sli ghtly (BEAKER) (test code = hemoly zed 377) SODIUM (BEAKER) (test 138 meq/L 136-145 code = 381) POTASSIUM (BEAKER) 5.8 meq/L 3.5-5.1 H Specimen slightly (test code = 379) hemolyzed CHLORIDE (BEAKER) 101 meq/L 98-107 (test code = 382) CO2 (BEAKER) (test 20 meq/L 22-29 L code = 355) BLOOD UREA NITROGEN 69 mg/dL 7-21 H (BEAKER) (test code = 354) CREATININE (BEAKER) 6.63 mg/dL 0.57-1.25 H Specimen slightly (test code = 358) hemolyzed GLUCOSE RANDOM 116 mg/dL 70-105 H (BEAKER) (test code = 652) CALCIUM (BEAKER) 8.5 mg/dL 8.4-10.2 (test code = 697) AST (SGOT) (BEAKER) 82 U/L 5-34 H Specimen slightly (test code = 353) hemolyzed ALT (SGPT) [facility] 35 U/L 6-55 Specimen slightly (test code = 347) hemolyzed EGFR ([facility]) (test 8 mL/min/1.73 ESTIMAT ED GFR IS code = 1092) sq m NOT ACCURATE CREATININE CLEARANCE IN PREDICTING GLOMERULAR FILTRATION RATE . ESTIMATED GFR I S NOT APPLICABLE FOR DIALYSIS PATIEN TS. Art Class Model ID - LATROPONIN [id number] 01:31:00 Test Item Value Reference Range Interpretation Comments TROPONIN I (PIERRE) (test code = 37.11 ng/mL 0.00-0.03 HH 397) Troponin I (TnI) levels must be interpreted in the context of the presenting symptoms and the clinical findings. Elevated TnI levels indicate myocardial damage, but are not specific for ischemic heart disease. Elevated TnI levels are seen in patients with other cardiac conditions (including myocarditis and congestive heart failure), and slight TnI elevations occur in patients with other conditions, including sepsis, renal failure, acidosis, acute neurological disease, and persistent tachyarrhythmia.Art Class Model ID - DBB-TYPE NATRIURETIC FACTOR (BNP)2020-02-06 00:06:00 Test Item Value Reference Range Interpretation Comments B-TYPE NATRIURETIC PEPTIDE 16191 pg/mL 0-100 H (PIERRE) (test code = 700) Art Class Model ID - DBCBC with platelet count + automated [id number] 22:37:00 Test Item Value Reference Range Interpretation Comments WBC (test code = 6690-2) 12.6 3.5- 10.5 K/L H RBC (test code = 789-8) 2.87 4.63- 6.08 M/L L MCHC (test code = 786-4) 32.7 32.3- 36.5 GM/DL L Hematocrit (test code = 4544-3) 28.4 % 40.1-51 L MCV (test code = 787-2) 99.0 fL 79-92.2 H MCH (test code = 785-6) 32.4 pg 25.7-32.2 H RDW (test code = 788-0) 17.3 % 11.6-14.4 H Platelets (test code = 777-3) 346 150- 450 K/CU MM MPV (test code = 70542-6) 10.9 fL 9.4-12.4 nRBC (test code = 413) 0 0- 0 /100 WBC % Neutros (test code = 429) 84 % % Lymphs (test code = 430) 5 % % Monos (test code = 431) 9 % % Eos (test code = 432) 0 % % Baso (test code = 437) 0 % # Neutros (test code = 670) 10.62 1.78- 5.38 K/L H # Lymphs (test code = 414) 0.58 1.32- 3.57 K/L L # Monos (test code = 415) 1.19 0.30- 0.82 K/L H # Eos (test code = 416) 0.02 0.04- 0.54 K/L L # Baso (test code = 417) 0.04 0.01- 0.08 K/L Immature Granulocytes-Relative 1 % 0-1 (test code = 2801) Lab Interpretation (test code = Abnormal 17979-2) [facility] W/PLT COUNT & AUTO [id number] 22:37:00 Test Item Value Reference Range Interpretation Comments WHITE BLOOD CELL COUNT (BEAKER) 12.6 K/ L 3.5-10.5 H (test code = 775) RED BLOOD CELL COUNT (BEAKER) 2.87 M/ L 4.63-6.08 L (test code = 761) HEMOGLOBIN (BEAKER) (test code = 9.3 GM/DL 13.7-17.5 L 410) HEMATOCRIT (BEAKER) (test code = 28.4 % 40.1-51.0 L 411) MEAN CORPUSCULAR VOLUME (BEAKER) 99.0 fL 79.0-92.2 H (test code = 753) MEAN CORPUSCULAR HEMOGLOBIN 32.4 pg 25.7-32.2 H (BEAKER) (test code = 751) MEAN CORPUSCULAR HEMOGLOBIN CONC 32.7 GM/DL 32.3-36.5 (BEAKER) (test code = 752) RED CELL DISTRIBUTION WIDTH 17.3 % 11.6-14.4 H (BEAKER) (test code = 412) PLATELET COUNT (BEAKER) (test 346 K/CU MM 150-450 code = 756) MEAN PLATELET VOLUME (BEAKER) 10.9 fL 9.4-12.4 (test code = 754) NUCLEATED RED BLOOD CELLS 0 /100 WBC 0-0 (BEAKER) (test code = 413) NEUTROPHILS RELATIVE PERCENT 84 % (BEAKER) (test code = 429) LYMPHOCYTES RELATIVE PERCENT 5 % (BEAKER) (test code = 430) MONOCYTES RELATIVE PERCENT 9 % (BEAKER) (test code = 431) EOSINOPHILS RELATIVE PERCENT 0 % (BEAKER) (test code = 432) BASOPHILS RELATIVE PERCENT 0 % (BEAKER) (test code = 437) NEUTROPHILS ABSOLUTE COUNT 10.62 K/ L 1.78-5.38 H (BEAKER) (test code = 670) LYMPHOCYTES ABSOLUTE COUNT 0.58 K/ L 1.32-3.57 L (BEAKER) (test code = 414) MONOCYTES ABSOLUTE COUNT (BEAKER) 1.19 K/ L 0.30-0.82 H (test code = 415) EOSINOPHILS ABSOLUTE COUNT 0.02 K/ L 0.04-0.54 L (BEAKER) (test code = 416) BASOPHILS ABSOLUTE COUNT (BEAKER) 0.04 K/ L 0.01-0.08 (test code = 417) IMMATURE GRANULOCYTES-RELATIVE 1 % 0-1 PERCENT (BEAKER) (test code = 2801) RAD, CHEST, 1 VIEW, NON [id number] 22:32:00Reason for exam:- >dyspneaShould this be performed at the bedside?->YesFINAL REPORT CLINICAL INDICATION: Dyspnea Comparison: 02/04/2020 The patient i s rotated to the left. The cardiomediastinal contours are stable. Central pulmonary vascular congestion and bilateral parenchymal and pleural opacities are similar within variation of acquisition technique. There is no pneumothorax. IMPRESSION: No significant interval change. Signed: Gamal Fernandes Verified Date/Time: 02/05/2020 22:32:13 POCT-GLUCOSE [id number] 21:42:00 Test Item Value Reference Range Interpretation Comments POC-GLUCOSE METER 121 mg/dL 70-110 H : TESTED A T [facility] 6720 (BEAKER) (test code = ARIS Chaney [facility], 1538) [address]: Art Class Model/Techni jessica ID = [id number] for SHER MARCANO TROPONIN [id number] 20:59:00 Test Item Value Reference Range Interpretation Comments TROPONIN I (BEAKER) (test code = 34.60 ng/mL 0.00-0.03 397) Troponin I (TnI) levels must be interpreted in the context of the presenting symptoms and the clinical findings. Elevated TnI levels indicate myocardial damage, but are not specific for ischemic heart disease. Elevated TnI levels are seen in patients with other cardiac conditions (including myocarditis and congestive heart failure), and slight TnI elevations occur in patients with other conditions, including sepsis, renal failure, acidosis, acute neurological disease, and persistent tachyarrhythmia.Art Class Model ID - NTPPOCT-GLUCOSE METER 2020-02-05 16:26:00 Test Item Value Reference Range Interpretation Comments POC-GLUCOSE METER 91 mg/dL 70-110 : TESTED A T [facility] 6720 (BEAKER) (test code = [facility], 1538) [address]: Art Class Model/Techni jessica ID = [id number] for Math ew, Remyia POCT-GLUCOSE [id number] 11:32:00 Test Item Value Reference Range Interpretation Comments POC-GLUCOSE METER 87 mg/dL 70-110 : TESTED A T [facility] 6720 (BEAKER) (test code = [facility], 1538) [address]: Art Class Model/Techni jessica ID = [id number] for Math ew, Remyia POCT-GLUCOSE [id number] 07:30:00 Test Item Value Reference Range Interpretation Comments POC-GLUCOSE METER 98 mg/dL 70-110 : TESTED A T [facility] 6720 (BEAKER) (test code = [facility], 1538) [address]: Art Class Model/Techni jessica ID = [id number] for Math ew, Remyia BASIC METABOLIC [id number] 03:09:00 Test Item Value Reference Range Interpretation Comments SODIUM (BEAKER) 138 meq/L 136-145 (test code = 381) POTASSIUM (BEAKER) 5.4 meq/L 3.5-5.1 H (test code = 379) CHLORIDE (BEAKER) 99 meq/L 98-107 (test code = 382) CO2 (BEAKER) (test 21 meq/L 22-29 L code = 355) BLOOD UREA NITROGEN 84 mg/dL 7-21 H (BEAKER) (test code = 354) CREATININE (BEAKER) 7.82 mg/dL 0.57-1.25 H (test code = 358) GLUCOSE RANDOM 98 mg/dL 70-105 (BEAKER) (test code = 652) CALCIUM (BEAKER) 8.6 mg/dL 8.4-10.2 (test code = 697) EGFR (BEAKER) (test 7 mL/min/1.73 ESTIMAT ED GFR IS code = 1092) sq m NOT ACCURATE CREATININE CLEARANCE IN PREDICTING GLOMERULAR FILTRATION RATE . ESTIMATED GFR I S NOT APPLICABLE FOR DIALYSIS PATIEN TS. Art Class Model ID - DEANDRE [id number] 03:07:00 Test Item Value Reference Range Interpretation Comments MAGNESIUM (BEAKER) (test code = 2.5 mg/dL 1.6-2.6 627) Art Class Model ID - DEANDRE MPROTHROMBIN TIME/[id number] 02:50:00 Test Item Value Reference Range Interpretation Comments PROTIME (BEAKER) (test code = 25.9 seconds 11.9-14.2 H 759) INR (BEAKER) (test code = 370) 2.4 <=5.9 Effective 02/08/2019: PT Reference Range ChangeNew: 11.9-14.2 Previous: 11.7- 14.7RECOMMENDED COUMADIN/WARFARIN INR THERAPY RANGESSTANDARD DOSE: 2.0-3.0 Includes: PROPHYLAXIS for venous thrombosis, systemic embolization; TREATMENT for venous thrombosis and/or pulmonary embolus.HIGH RISK: Target INR is2.5-3.5 for patients wiht mechanical heart valves.While on warfarin.CBC (HEMOGRAM ONLY) 2020-02-05 02:40:00 Test Item Value Reference Range Interpretation Comments WHITE BLOOD CELL COUNT (BEAKER) 12.5 K/ L 3.5-10.5 H (test code = 775) RED BLOOD CELL COUNT (BEAKER) 2.85 M/ L 4.63-6.08 L (test code = 761) HEMOGLOBIN (BEAKER) (test code = 9.1 GM/DL 13.7-17.5 L 410) HEMATOCRIT (BEAKER) (test code = 28.4 % 40.1-51.0 L 411) MEAN CORPUSCULAR VOLUME (BEAKER) 99.6 fL 79.0-92.2 H (test code = 753) MEAN CORPUSCULAR HEMOGLOBIN 31.9 pg 25.7-32.2 (BEAKER) (test code = 751) MEAN CORPUSCULAR HEMOGLOBIN CONC 32.0 GM/DL 32.3-36.5 L (BEAKER) (test code = 752) RED CELL DISTRIBUTION WIDTH 17.2 % 11.6-14.4 H (BEAKER) (test code = 412) PLATELET COUNT (BEAKER) (test 268 K/CU MM 150-450 code = 756) MEAN PLATELET VOLUME (BEAKER) 11.0 fL 9.4-12.4 (test code = 754) NUCLEATED RED BLOOD CELLS 0 /100 WBC 0-0 (BEAKER) (test code = 413) POCT-GLUCOSE [id number] 22:13:00 Test Item Value Reference Range Interpretation Comments POC-GLUCOSE METER 105 mg/dL 70-110 : TESTED A T [facility] 6720 ([facility]) (test code = ARIS Chaney [facility], 1538) [address]: Art Class Model/Techni jessica ID = [id number] for Re xho, Ashleigh ULTRAFILTRATION HD [id number] 21:55:09Estrellita Melara RN 02/04/2020 9:56 PMPatient is awake, alert and oriented X 4. Here for UF for 2 hours with UF goal of 1.5L. The following most updated labs are as follows: Lab Results ComponentValue Date HEPBSAG Nonreactive 01/23/2020 Lab Results Component [...] Left arm AV fistula access. Vital signs stable and well within the set parameters. Report given to primary RN. Patient was able to tolerate the treatment well.[facility], NON DEPT 2020-02-04 15:12:00Reason for exam:->shortness of breathShould this be performed at the bedside?->YesFINAL REPORT Chest, one view. HISTORY: shortness of breath COMPARISON: Radiograph from 01/31/2020 IMPRESSION: Unchanged positioning of the right-sided pacer/ICD. The interstitial pulmonary edema is new. The trace bilateral pleural effusions and subsegmental atelectasis are unchanged. The cardiac silhouette is unchanged. Age-indeterminate right lateral ninth rib fracture. Signed: Ryan Willis Verified Date/Time: 02/04/2020 15:12:37 Reading Location: [facility] C013Y CT Body Reading Room POCT-GLUCOSE [id number] 13:41:00 Test Item Value Reference Range Interpretation Comments POC-GLUCOSE METER 115 mg/dL 70-110 H : TESTED A T [facility] 6720 (BEAKER) (test code = [employer] [facility], 1538) [address]: Art Class Model/Techni jessica ID = [id number] for CR UZ, HARLEY POCT-GLUCOSE [id number] 09:28:00 Test Item Value Reference Range Interpretation Comments POC-GLUCOSE METER 105 mg/dL 70-110 : TESTED A T [facility] 6720 (BEAKER) (test code = [facility], 1538) [address]: Art Class Model/Techni jessica ID = [id number] for CR UZ, HARLEY [id number] 06:20:00 Test Item Value Reference Range Interpretation Comments Ferritin (test code = 3333.01 ng/mL 5-275 H 2276-4) JARRED (test code = JARRED) Art Class Model ID - DEANDRE Hamlin Lab Interpretation (test Abnormal code = 19587-8) [facility] Center[facility]IN2020-[facility]-24 06:20:00 Test Item Value Reference Range Interpretation Comments FERRITIN (BEAKER) (test code = 3333.01 ng/mL 5.00-275.00 H 361) Art Class Model ID - DEANDRE Aguila, TIBC, % sat. (without ferritin)2020-02-04 05:34:00 Test Item Value Reference Range Interpretation Comments Iron (test code = 2498-4) 31.0 ug/dL 40-160 L TIBC (test code = 2500-7) 170 ug/dL 250-450 L Iron % Saturation (test 18 % 20-55 L code = 2502-3) JARRED (test code = JARRED) Art Class Model CHARLES CARRERA M Lab Interpretation (test Abnormal code = 49343-4) [facility] CenterIRON, TIBC, % SAT. (WITHOUT FERRITIN)2020-02-04 05:34:00 Test Item Value Reference Range Interpretation Comments IRON (BEAKER) (test code = 547) 31.0 ug/dL 40.0-160.0 L TOTAL IRON BINDING CAPACITY 170 ug/dL 250-450 L (BEAKER) (test code = 769) IRON % SATURATION (2) (BEAKER) 18 % 20-55 L (test code = 2590) Art Class Model CHARLES CARRERA MPROTHROMBIN [id number] 05:09:00 Test Item Value Reference Range Interpretation Comments PROTIME (BEAKER) (test code = 21.0 seconds 11.9-14.2 H 759) INR (BEAKER) (test code = 370) 1.9 <=5.9 Effective 02/08/2019: PT Reference Range ChangeNew: 11.9-14.2 Previous: 11.7- 14.7RECOMMENDED COUMADIN/WARFARIN INR THERAPY RANGESSTANDARD DOSE: 2.0-3.0 Includes: PROPHYLAXIS for venous thrombosis, systemic embolization; TREATMENT for venous thrombosis and/or pulmonary embolus.HIGH RISK: Target INR is2.5-3.5 for patients wiht mechanical heart valves.While on warfarin.CBC (HEMOGRAM ONLY) 2020-02-04 05:04:00 Test Item Value Reference Range Interpretation Comments WHITE BLOOD CELL COUNT (BEAKER) 11.9 K/ L 3.5-10.5 H (test code = 775) RED BLOOD CELL COUNT (BEAKER) 2.70 M/ L 4.63-6.08 L (test code = 761) HEMOGLOBIN (BEAKER) (test code = 8.6 GM/DL 13.7-17.5 L 410) HEMATOCRIT (BEAKER) (test code = 26.6 % 40.1-51.0 L 411) MEAN CORPUSCULAR VOLUME (BEAKER) 98.5 fL 79.0-92.2 H (test code = 753) MEAN CORPUSCULAR HEMOGLOBIN 31.9 pg 25.7-32.2 (BEAKER) (test code = 751) MEAN CORPUSCULAR HEMOGLOBIN CONC 32.3 GM/DL 32.3-36.5 (BEAKER) (test code = 752) RED CELL DISTRIBUTION WIDTH 17.2 % 11.6-14.4 H (AKER) (test code = 412) PLATELET COUNT ([facility]) (test 226 K/CU MM 150-450 code = 756) MEAN PLATELET VOLUME (AKER) 10.8 fL 9.4-12.4 (test code = 754) NUCLEATED RED BLOOD CELLS 0 /100 WBC 0-0 ([facility]) (test code = 413) POCT-GLUCOSE [id number] 17:48:00 Test Item Value Reference Range Interpretation Comments POC-GLUCOSE METER 128 mg/dL 70-110 H : Notified RN/MD: (PIERRE) (test code = TESTED AT [place] [address] 1538) [facility], [address]: Art Class Model/Techni jessica ID = [id number] for Vi ctor, Velma POCT-GLUCOSE [id number] 12:39:00 Test Item Value Reference Range Interpretation Comments POC-GLUCOSE METER 142 mg/dL 70-110 H : Notified RN/: (PIERRE) (test code = TESTED AT [place] [address] 1538) [facility], [address]: Art Class Model/Techni jessica ID = [id number] for Vi ctor, Velma POCT-GLUCOSE [id number] 07:38:00 Test Item Value Reference Range Interpretation Comments POC-GLUCOSE METER 107 mg/dL 70-110 : TESTED A T [place] [address] ([facility]) (test code = [facility], 1538) [address]: Art Class Model/Techni jessica ID = [id number] for Vi ctor, Velma PROTHROMBIN [id number] 05:47:00 Test Item Value Reference Range Interpretation Comments PROTIME ([facility]) (test code = 18.7 seconds 11.9-14.2 H 759) INR (BEAKER) (test code = 370) 1.6 <=5.9 Effective 02/08/2019: PT Reference Range ChangeNew: 11.9-14.2 Previous: 11.7- 14.7RECOMMENDED COUMADIN/WARFARIN INR THERAPY RANGESSTANDARD DOSE: 2.0-3.0 Includes: PROPHYLAXIS for venous thrombosis, systemic embolization; TREATMENT for venous thrombosis and/or pulmonary embolus.HIGH RISK: Target INR is2.5-3.5 for patients wiht mechanical heart valves.While on warfarin.CBC (HEMOGRAM ONLY) 2020-02-03 05:30:00 Test Item Value Reference Range Interpretation Comments WHITE BLOOD CELL COUNT (BEAKER) 11.5 K/ L 3.5-10.5 H (test code = 775) RED BLOOD CELL COUNT (BEAKER) 2.80 M/ L 4.63-6.08 L (test code = 761) HEMOGLOBIN (BEAKER) (test code = 8.7 GM/DL 13.7-17.5 L 410) HEMATOCRIT (BEAKER) (test code = 27.6 % 40.1-51.0 L 411) MEAN CORPUSCULAR VOLUME (BEAKER) 98.6 fL 79.0-92.2 H (test code = 753) MEAN CORPUSCULAR HEMOGLOBIN 31.1 pg 25.7-32.2 (BEAKER) (test code = 751) MEAN CORPUSCULAR HEMOGLOBIN CONC 31.5 GM/DL 32.3-36.5 L (BEAKER) (test code = 752) RED CELL DISTRIBUTION WIDTH 17.7 % 11.6-14.4 H (BEAKER) (test code = 412) PLATELET COUNT (BEAKER) (test 190 K/CU MM 150-450 code = 756) MEAN PLATELET VOLUME (BEAKER) 11.0 fL 9.4-12.4 (test code = 754) NUCLEATED RED BLOOD CELLS 0 /100 WBC 0-0 (BEAKER) (test code = 413) POCT-GLUCOSE [id number] 21:31:00 Test Item Value Reference Range Interpretation Comments POC-GLUCOSE METER 187 mg/dL 70-110 H : TESTED A T [facility] 6720 (BEAKER) (test code = [place], 1538) [address]: Art Class Model/Techni jessica ID = [id number] for Jyaleen Main POCT-GLUCOSE [id number] 18:08:00 Test Item Value Reference Range Interpretation Comments POC-GLUCOSE METER 124 mg/dL 70-110 H : TESTED A T [facility] 6720 (BEAKER) (test code = ARIS Chaney [facility], 1538) [address]204: Art Class Model/Techni jessica ID = [id number] for JON LEAVITT POCT-GLUCOSE [id number] 08:06:00 Test Item Value Reference Range Interpretation Comments POC-GLUCOSE METER 96 mg/dL 70-110 : TESTED A T [facility] 6720 (BEAKER) (test code = [facility], 1538) [address]: Art Class Model/Techni jessica ID = [id number] for MARÍA ELENA PHILLIPS, INGRID BASIC METABOLIC [id number] 06:20:00 Test Item Value Reference Range Interpretation Comments SODIUM (BEAKER) 140 meq/L 136-145 (test code = 381) POTASSIUM (BEAKER) 4.0 meq/L 3.5-5.1 (test code = 379) CHLORIDE (BEAKER) 101 meq/L 98-107 (test code = 382) CO2 (BEAKER) (test 27 meq/L 22-29 code = 355) BLOOD UREA NITROGEN 62 mg/dL 7-21 H (BEAKER) (test code = 354) CREATININE (BEAKER) 6.11 mg/dL 0.57-1.25 H (test code = 358) GLUCOSE RANDOM 103 mg/dL 70-105 (BEAKER) (test code = 652) CALCIUM (BEAKER) 8.4 mg/dL 8.4-10.2 (test code = 697) EGFR (BEAKER) (test 9 mL/min/1.73 ESTIMAT ED GFR IS code = 1092) sq m NOT ACCURATE CREATININE CLEARANCE IN PREDICTING GLOMERULAR FILTRATION RATE . ESTIMATED GFR I S NOT APPLICABLE FOR DIALYSIS PATIEN TS. Art Class Model ID - DEANDRE MSpecimen slightly ictericPROTHROMBIN [id number] 05:35:00 Test Item Value Reference Range Interpretation Comments PROTIME (BEAKER) (test code = 16.5 seconds 11.9-14.2 H 759) INR (BEAKER) (test code = 370) 1.4 <=5.9 Effective 02/08/2019: PT Reference Range ChangeNew: 11.9-14.2 Previous: 11.7- 14.7RECOMMENDED COUMADIN/WARFARIN INR THERAPY RANGESSTANDARD DOSE: 2.0-3.0 Includes: PROPHYLAXIS for venous thrombosis, systemic embolization; TREATMENT for venous thrombosis and/or pulmonary embolus.HIGH RISK: Target INR is2.5-3.5 for patients wiht mechanical heart valves.While on warfarin.CBC (HEMOGRAM ONLY) 2020-02-02 05:29:00 Test Item Value Reference Range Interpretation Comments WHITE BLOOD CELL COUNT (BEAKER) 12.0 K/ L 3.5-10.5 H (test code = 775) RED BLOOD CELL COUNT (BEAKER) 2.90 M/ L 4.63-6.08 L (test code = 761) HEMOGLOBIN (BEAKER) (test code = 8.9 GM/DL 13.7-17.5 L 410) HEMATOCRIT (BEAKER) (test code = 28.8 % 40.1-51.0 L 411) MEAN CORPUSCULAR VOLUME (BEAKER) 99.3 fL 79.0-92.2 H (test code = 753) MEAN CORPUSCULAR HEMOGLOBIN 30.7 pg 25.7-32.2 (BEAKER) (test code = 751) MEAN CORPUSCULAR HEMOGLOBIN CONC 30.9 GM/DL 32.3-36.5 L (BEAKER) (test code = 752) RED CELL DISTRIBUTION WIDTH 18.2 % 11.6-14.4 H (BEAKER) (test code = 412) PLATELET COUNT (BEAKER) (test 178 K/CU MM 150-450 code = 756) MEAN PLATELET VOLUME (BEAKER) 11.0 fL 9.4-12.4 (test code = 754) NUCLEATED RED BLOOD CELLS 0 /100 WBC 0-0 (BEAKER) (test code = 413) Prepare Leuko-Red [id number] 23:54:00 Test Item Value Reference Range Interpretation Comments CROSSMATCH (test code = 2264) COMPATIBLE Unit ABO (test code = O Pos 6831834) UNIT NUMBER (test code = [id number] 934-0) Status (test code = 7335238) TX_TIMEINCHART Blood Bank Product (test code RED BLOOD CELLS = 2263) PRODUCT CODE (test code = K6581A81 933-2) [facility] [id number] 21:30:00 Test Item Value Reference Range Interpretation Comments POC-GLUCOSE METER 120 mg/dL 70-110 H : TESTED A T [facility] 6720 (BEAKER) (test code = [facility], 1538) [address]: Art Class Model/Techni jessica ID = [id number] for Lady Buck POCT-GLUCOSE [id number] 13:28:00 Test Item Value Reference Range Interpretation Comments POC-GLUCOSE METER 129 mg/dL 70-110 H : TESTED A T [facility] 6720 (BEAKER) (test code = [facility], 1538) 722[address]: Art Class Model/Techni jessica ID = [id number] for TOBIAS CROCKETT POCT-GLUCOSE [id number] 10:05:00 Test Item Value Reference Range Interpretation Comments POC-GLUCOSE METER 99 mg/dL 70-110 : TESTED A T [facility] 6720 (BEAKER) (test code = [facility], 1538) [address]: Art Class Model/Techni jessica ID = [id number] for TOBIAS CANDELARIA CBC (HEMOGRAM ONLY)2020-02-01 05:45:00 Test Item Value Reference Range Interpretation Comments WHITE BLOOD CELL COUNT (BEAKER) 10.8 K/ L 3.5-10.5 H (test code = 775) RED BLOOD CELL COUNT (BEAKER) 2.81 M/ L 4.63-6.08 L (test code = 761) HEMOGLOBIN (BEAKER) (test code = 8.7 GM/DL 13.7-17.5 L 410) HEMATOCRIT (BEAKER) (test code = 27.6 % 40.1-51.0 L 411) MEAN CORPUSCULAR VOLUME (BEAKER) 98.2 fL 79.0-92.2 H (test code = 753) MEAN CORPUSCULAR HEMOGLOBIN 31.0 pg 25.7-32.2 (BEAKER) (test code = 751) MEAN CORPUSCULAR HEMOGLOBIN CONC 31.5 GM/DL 32.3-36.5 L (BEAKER) (test code = 752) RED CELL DISTRIBUTION WIDTH 18.2 % 11.6-14.4 H (BEAKER) (test code = 412) PLATELET COUNT (BEAKER) (test 139 K/CU MM 150-450 L code = 756) MEAN PLATELET VOLUME (BEAKER) 10.9 fL 9.4-12.4 (test code = 754) NUCLEATED RED BLOOD CELLS 0 /100 WBC 0-0 (BEAKER) (test code = 413) PROTHROMBIN [id number] 05:41:00 Test Item Value Reference Range Interpretation Comments PROTIME (BEAKER) (test code = 16.0 seconds 11.9-14.2 H 759) INR (BEAKER) (test code = 370) 1.3 <=5.9 Effective 02/08/2019: PT Reference Range ChangeNew: 11.9-14.2 Previous: 11.7- 14.7RECOMMENDED COUMADIN/WARFARIN INR THERAPY RANGESSTANDARD DOSE: 2.0-3.0 Includes: PROPHYLAXIS for venous thrombosis, systemic embolization; TREATMENT for venous thrombosis and/or pulmonary embolus.HIGH RISK: Target INR is2.5-3.5 for patients wiht mechanical heart valves.While on warfarin.PROTHROMBIN TIME/INR 2020-01-31 20:52:00 Test Item Value Reference Range Interpretation Comments PROTIME (BEAKER) (test code = 15.7 seconds 11.9-14.2 H 759) INR (BEAKER) (test code = 370) 1.3 <=5.9 Effective 02/08/2019: PT Reference Range ChangeNew: 11.9-14.2 Previous: 11.7- 14.7RECOMMENDED COUMADIN/WARFARIN INR THERAPY RANGESSTANDARD DOSE: 2.0-3.0 Includes: PROPHYLAXIS for venous thrombosis, systemic embolization; TREATMENT for venous thrombosis and/or pulmonary embolus.HIGH RISK: Target INR is2.5-3.5 for patients wiht mechanical heart valves.Baseline INR <48 hours prior to startPOCT-GLUCOSE [id number] 16:42:00 Test Item Value Reference Range Interpretation Comments POC-GLUCOSE METER 143 mg/dL 70-110 H : TESTED A T [facility] 6720 (BEAKER) (test code = [place], 1538) [address]: Art Class Model/Techni jessica ID = [id number] for LO MARGOT, LIANE Hemoglobin and [id number] 13:33:00 Test Item Value Reference Range Interpretation Comments Hemoglobin (test code = 8.9 13.7- 17.5 GM/DL L 786-4) Hematocrit (test code = 26.7 % 40.1-51 L 4544-3) JARRED (test code = JARRED) Art Class Model ID - [id number] Lab Interpretation (test Abnormal code = 31885-0) [facility] CenterHEMOGLOBIN AND [id number] 13:33:00 Test Item Value Reference Range Interpretation Comments HEMOGLOBIN (BEAKER) (test code = 8.9 GM/DL 13.7-17.5 L 410) HEMATOCRIT (BEAKER) (test code = 26.7 % 40.1-51.0 L 411) Art Class Model ID - [id number]-GLUCOSE [id number] 11:44:00 Test Item Value Reference Range Interpretation Comments POC-GLUCOSE METER 102 mg/dL 70-110 : TESTED A T [facility] 6720 (BEAKER) (test code = [facility] [place], 1538) [address]: Art Class Model/Techni jessica ID = [id number] for LAINE MAC RAD, CHEST, 1 VIEW, NON [id number] 09:43:00Reason for exam:->s/p CABGShould this be performed at the bedside?->YesFINAL REPORT RAD, CHEST, 1 VIEW, NON DEPT INDICATION: s/p CABG COMPARISON: Prior day's exam FINDINGS: Portable frontal view of the chest. IMPRESSION: Support Lines: Left-sidedcentral catheter is unchanged. Pacer device. Lungs and pleura: Right greater left effusions and basilar atelectasis are slightly decreased in the interim No pneumothorax.Heart and mediastinum: Stable contours. Stable surgical changes.Additional findings: None. Signed: Rosie Alvarado VerifiedDate/Time: 01/31/2020 09:43:16 Reading Location: [facility] Radiology Reading Room POCT-GLUCOSE [id number] 07:28:00 Test Item Value Reference Range Interpretation Comments POC-GLUCOSE METER 149 mg/dL 70-110 H : TESTED A T [facility] 6720 (BEAKER) (test code = [facility] [place], 1538) [address]: Art Class Model/Techni jessica ID = [id number] for LAINE MAC CBC (HEMOGRAM ONLY)2020-01-31 05:16:00 Test Item Value Reference Range Interpretation Comments WHITE BLOOD CELL COUNT (BEAKER) 9.5 K/ L 3.5-10.5 (test code = 775) RED BLOOD CELL COUNT (BEAKER) 2.21 M/ L 4.63-6.08 L (test code = 761) HEMOGLOBIN (BEAKER) (test code = 7.3 GM/DL 13.7-17.5 L 410) HEMATOCRIT (BEAKER) (test code = 22.5 % 40.1-51.0 L 411) MEAN CORPUSCULAR VOLUME (BEAKER) 101.8 fL 79.0-92.2 H (test code = 753) MEAN CORPUSCULAR HEMOGLOBIN 33.0 pg 25.7-32.2 H (BEAKER) (test code = 751) MEAN CORPUSCULAR HEMOGLOBIN CONC 32.4 GM/DL 32.3-36.5 (BEAKER) (test code = 752) RED CELL DISTRIBUTION WIDTH 17.6 % 11.6-14.4 H (BEAKER) (test code = 412) PLATELET COUNT (BEAKER) (test 119 K/CU MM 150-450 L code = 756) MEAN PLATELET VOLUME (BEAKER) 10.9 fL 9.4-12.4 (test code = 754) NUCLEATED RED BLOOD CELLS 0 /100 WBC 0-0 (BEAKER) (test code = 413) [id number] 04:55:00 Test Item Value Reference Range Interpretation Comments PHOSPHORUS (BEAKER) (test code = 4.4 mg/dL 2.3-4.7 604) Art Class Model ID - DEANDRE [id number] 04:55:00 Test Item Value Reference Range Interpretation Comments MAGNESIUM (BEAKER) (test code = 2.4 mg/dL 1.6-2.6 627) Art Class Model ID - DEANDRE MBASIC METABOLIC [id number] 04:55:00 Test Item Value Reference Range Interpretation Comments SODIUM (BEAKER) 136 meq/L 136-145 (test code = 381) POTASSIUM (BEAKER) 3.9 meq/L 3.5-5.1 (test code = 379) CHLORIDE (BEAKER) 105 meq/L 98-107 (test code = 382) CO2 (BEAKER) (test 19 meq/L 22-29 L code = 355) BLOOD UREA NITROGEN 62 mg/dL 7-21 H (BEAKER) (test code = 354) CREATININE (BEAKER) 5.11 mg/dL 0.57-1.25 H (test code = 358) GLUCOSE RANDOM 174 mg/dL 70-105 H (BEAKER) (test code = 652) CALCIUM (BEAKER) 8.2 mg/dL 8.4-10.2 L (test code = 697) EGFR (BEAKER) (test 11 mL/min/1.73 ESTIMA MAI GFR IS code = 1092) sq m NOT ACCURATE CREATININE CLEARANCE IN PREDICTING GLOMERULAR FILTRATION RATE . ESTIMATED GFR I S NOT APPLICABLE FOR DIALYSIS PATIEN TS. Art Class Model ID - DEANDRE MBlood gas, [id number] 03:46:00 Test Item Value Reference Range Interpretation Comments pH, Arterial (test code = 2744-1) 7.39 7.35-7.45 pCO2, Arterial (test code = 34 35- 45 mmHg L 2019-8) pO2, Arterial (test code = 73 80- 90 mmHg L 2703-7) O2 Sat, Arterial (test code = 94.7 % 96-97 L 2708-6) HCO3, Arterial (test code = 20 mmol/L 21-29 L 1960-4) Base Excess, Arterial (test code -4.5 mmol/L -2-3 L = 1925-7) Patient Temperature (test code = 36.9 C 8310-5) FIO2 (test code = 1819) 21 % Lab Interpretation (test code = Abnormal 17019-6) [facility] CenterBLOOD GAS, [id number] 03:46:00 Test Item Value Reference Range Interpretation Comments PH ARTERIAL (BEAKER) (test code = 7.39 7.35-7.45 383) PCO2 ARTERIAL (BEAKER) (test code 34 mmHg 35-45 L = 384) PO2 ARTERIAL (BEAKER) (test code 73 mmHg 80-90 L = 385) O2 SATURATION ARTERIAL (BEAKER) 94.7 % 96.0-97.0 L (test code = 386) HCO3 ARTERIAL (BEAKER) (test code 20 mmol/L 21-29 L = 388) BASE EXCESS ARTERIAL (BEAKER) -4.5 mmol/L -2.0-3.0 L (test code = 387) PATIENT TEMPERATURE (BEAKER) 36.9 C (test code = 1818) FIO2 (BEAKER) (test code = 1819) 21.0 % Calcium, [id number] 03:45:00 Test Item Value Reference Range Interpretation Comments Calcium, Ion (test code = 1993-3) 1.10 mmol/L 1.12-1.27 L pH, Blood (test code = 23473-9) 7.39 Lab Interpretation (test code = Abnormal 98854-9) [facility] CenterCALCIUM, [id number] 03:45:00 Test Item Value Reference Range Interpretation Comments CALCIUM IONIZED (BEAKER) (test 1.10 mmol/L 1.12-1.27 L code = 698) PH, BLOOD (BEAKER) (test code = 7.39 1810) Oxygen saturation, [id number] 03:44:00 Test Item Value Reference Range Interpretation Comments O2 Saturation (Measured) (test code = 92.4 % 00041-5) [facility] CenterOXYGEN SATURATION, [id number] 03:44:00 Test Item Value Reference Range Interpretation Comments O2 SATURATION (MEASURED) (BEAKER) 92.4 % (test code = 1455) CBC W/PLT COUNT & AUTO [id number] 00:35:00 Test Item Value Reference Range Interpretation Comments WHITE BLOOD CELL COUNT (BEAKER) 10.2 K/ L 3.5-10.5 (test code = 775) RED BLOOD CELL COUNT (BEAKER) 2.28 M/ L 4.63-6.08 L (test code = 761) HEMOGLOBIN (BEAKER) (test code = 7.4 GM/DL 13.7-17.5 L 410) HEMATOCRIT (BEAKER) (test code = 23.0 % 40.1-51.0 L 411) MEAN CORPUSCULAR VOLUME (BEAKER) 100.9 fL 79.0-92.2 H (test code = 753) MEAN CORPUSCULAR HEMOGLOBIN 32.5 pg 25.7-32.2 H (BEAKER) (test code = 751) MEAN CORPUSCULAR HEMOGLOBIN CONC 32.2 GM/DL 32.3-36.5 L (BEAKER) (test code = 752) RED CELL DISTRIBUTION WIDTH 17.7 % 11.6-14.4 H (BEAKER) (test code = 412) PLATELET COUNT (BEAKER) (test 123 K/CU MM 150-450 L code = 756) MEAN PLATELET VOLUME (BEAKER) 10.6 fL 9.4-12.4 (test code = 754) NUCLEATED RED BLOOD CELLS 0 /100 WBC 0-0 (BEAKER) (test code = 413) NEUTROPHILS RELATIVE PERCENT 77 % (BEAKER) (test code = 429) LYMPHOCYTES RELATIVE PERCENT 7 % (BEAKER) (test code = 430) MONOCYTES RELATIVE PERCENT 11 % (BEAKER) (test code = 431) EOSINOPHILS RELATIVE PERCENT 1 % (BEAKER) (test code = 432) BASOPHILS RELATIVE PERCENT 0 % (BEAKER) (test code = 437) NEUTROPHILS ABSOLUTE COUNT 7.86 K/ L 1.78-5.38 H (BEAKER) (test code = 670) LYMPHOCYTES ABSOLUTE COUNT 0.72 K/ L 1.32-3.57 L (BEAKER) (test code = 414) MONOCYTES ABSOLUTE COUNT (BEAKER) 1.15 K/ L 0.30-0.82 H (test code = 415) EOSINOPHILS ABSOLUTE COUNT 0.07 K/ L 0.04-0.54 (BEAKER) (test code = 416) BASOPHILS ABSOLUTE COUNT (BEAKER) 0.02 K/ L 0.01-0.08 (test code = 417) IMMATURE GRANULOCYTES-RELATIVE 3 % 0-1 H PERCENT (BEAKER) (test code = 2801) Lactic Acid, [id number] 23:55:00 Test Item Value Reference Range Interpretation Comments Lactate, Art (test 0.8 mmol/L 0.5-2.2 Specimen code = 5014) slightly hemolyzed JARRED (test code = JARRED) Art Class Model ID - BSSpecimen slightly icteric Lab Interpretation Normal (test code = 03358-4) [facility] CenterLACTIC ACID, [id number] 23:55:00 Test Item Value Reference Range Interpretation Comments LACTATE BLOOD 0.8 mmol/L 0.5-2.2 Specimen sligh tly ARTERIAL (2) (BEAKER) hemoly zed (test code = 2874) Art Class Model ID - BSSpecimen slightly ictericRAD, CHEST, 1 VIEW, NON [id number] 23:30:00Reason for exam:->pacemakerShould this be performed at the bedside?->YesFINAL REPORT RAD, CHEST, 1 VIEW, NON DEPT INDICATION: pacemaker COMPARISON: January 28, 2020 FINDINGS: Portable frontal view of the chest. IMPRESSION: Support Lines: Stable left IJ catheter and right AICD device. Lungs and pleura: No significant change in airspace and pleural opacities. No pneumothorax.Heart and mediastinum: Stable contours. Additional findings: None. Signed: Erik Merrill Verified Date/Time: 01/30/2020 23:30:28 OXYGEN SATURATION, [id number] 23:11:00 Test Item Value Reference Range Interpretation Comments O2 SATURATION (MEASURED) (BEAKER) 83.3 % (test code = 1455) POCT-GLUCOSE [id number] 22:18:00 Test Item Value Reference Range Interpretation Comments POC-GLUCOSE METER 106 mg/dL 70-110 : TESTED A T [facility] 6720 (BEAKER) (test code = [place], 1538) [address]: Art Class Model/Techni jessica ID = [id number] for DO December BASIC METABOLIC [id number] 22:12:00 Test Item Value Reference Range Interpretation Comments SODIUM (BEAKER) 137 meq/L 136-145 (test code = 381) POTASSIUM (BEAKER) 3.7 meq/L 3.5-5.1 (test code = 379) CHLORIDE (BEAKER) 105 meq/L 98-107 (test code = 382) CO2 (BEAKER) (test 21 meq/L 22-29 L code = 355) BLOOD UREA NITROGEN 54 mg/dL 7-21 H (BEAKER) (test code = 354) CREATININE (BEAKER) 4.73 mg/dL 0.57-1.25 H (test code = 358) GLUCOSE RANDOM 113 mg/dL 70-105 H (BEAKER) (test code = 652) CALCIUM (BEAKER) 8.4 mg/dL 8.4-10.2 (test code = 697) EGFR (BEAKER) (test 12 mL/min/1.73 ESTIMA MAI GFR IS code = 1092) sq m NOT ACCURATE CREATININE CLEARANCE IN PREDICTING GLOMERULAR FILTRATION RATE . ESTIMATED GFR I S NOT APPLICABLE FOR DIALYSIS PATIEN TS. Art Class Model ID - BSSpecimen slightly [id number] 22:07:00 Test Item Value Reference Range Interpretation Comments PHOSPHORUS (BEAKER) (test code = 4.1 mg/dL 2.3-4.7 604) Art Class Model ID - [id number] 22:07:00 Test Item Value Reference Range Interpretation Comments MAGNESIUM (BEAKER) (test code = 2.4 mg/dL 1.6-2.6 627) Art Class Model ID - BSCALCIUM, [id number] 21:10:00 Test Item Value Reference Range Interpretation Comments CALCIUM IONIZED (BEAKER) (test 1.11 mmol/L 1.12-1.27 L code = 698) PH, BLOOD (BEAKER) (test code = 7.40 1810) POCT-GLUCOSE [id number] 17:34:00 Test Item Value Reference Range Interpretation Comments POC-GLUCOSE METER 137 mg/dL 70-110 H : TESTED A T [facility] 6720 (BEAKER) (test code = AR[facility] Chaney [facility], 1538) [address]: Art Class Model/Techni jessica ID = [id number] for [place] AYDE ROWAN 2D Echo W/Doppler(CW/PW/Color)2020-01-30 16:47:12Ejection FractionSLEH ECHO HEARTLAB MKCKESSON CPACSInterface, External Ris In - 01/30/2020 4:47 PM C DTTransthoracic Echocardiography Report (TTE) Demographics Patient Name STEVE GAMEZ Date of Study 01/30/2020 MIGUEL Gender Male Visit Number [id number] Race Unknown Room Number C823 Number Date of 1935 Referring Physician Lan Chapman MD Age 84 year(s) 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 Amount - 2 mlHeight: 66 inches Weight: 72.12 kg (159 lbs) BSA: 1.81 m^2 BMI: 25.66 kg/m^2HR: 80 bpm BP: 101/50 mmHg Summary LV endocardium is adequately visualized with IV ultrasound enhancing agent. The left ventricle is chamber size (by vol index) is severely enlarged (male - LVED vol >100ml/m2). Normal LV wall thickness. The following segment(s) appear akinetic: Mid-distal anterior septum, extensive apical akinesis. The other segments are mildly hypokinetic. Global LV systolic function severely reduced . LVEF by Cleary's method of disk assessment is severely reduced (20-24%) . Grade 2 diastolic dysfunction (moderately increased LA pressure). Mild tricuspid regurgitation. Estimated peak systolic PA pressure is 40-45 mmHg (mild pulmonary hypertension) A trivial pericardial effusion is present . Previous Study In comparison with the prior exam on 01/27/2020 there are no significant changes. Signature Findings Technical Quality: Technically adequate exam. Left Ventricle LV endocardium is adequately visualized with IV ultrasound enhancing agent. The left ventricle ischamber size (by vol index) is severely enlarged (male - LVED vol >100ml/m2). Normal LV wall thickness. The following segment(s) appear akinetic: Mid-distal anterior septum, extensive apical akinesis. The other segments are mildly hypokinetic. Global LV systolic function severely reduced . LVEF by Cleary's method of disk assessment is severely reduced (20-24%) . Grade 2 diastolic dysfunction (moderately increased LA pressure). Left Atrium LA size is mildlyenlarged (35-41 ml/m2) . Right Ventricle RV chamber size is normal . Global RV systolic function is low normal . RV pacing wire is visualized . Right Atrium RA cavity size is mildly enlarged . RA pacing wire is visualized . Aortic Valve Mild AoV cusp calcification. Mild aortic regurgitation. Mitral Valve Mild mitral annular calcification. Mild MVleaflet calcification. Mild mitral regurgitation. Tricuspid Valve Mild tricuspid regurgitation. Estimated peak systolic PA pressure is 40-45 mmHg (mild pulmonary hypertension) . Normal TV structure. Pulmonic Valve Mild pulmonary regurgitation. Normal PV structure and function. Aorta Aortic root size (SInus of Valsalva diameter) is normal . Pericardium A trivial pericardial effusion is present . IVC/SVC/PA/PV/Pleural The estimated [...] 16.52 cm Aorta Ao Root S of Shruthi.: 3.85 cm Doppler/Quantitative Measurements Mitral Valve MV Jose-Wave: 1.23 m/s MV Peak A-Wave: 0.81 m/s E/ARatio: 1.51 Peak Gradient: 6.05 mmHg Deceleration Time: 217 msec MV Tej. Peak: Tissue Doppler E' Lateral Velocity: 0.06 m/s E/E': 20.56 Aortic Valve Peak Velocity: 2.02 m/s Mean Velocity: 1.2 6 m/s Peak Gradient: 16.25 mmHg Mean Gradient: 7.62 mmHg AV Area (continuity): 2.27 cm^2 AV VTI: 31.53 cm AV DVI: 0.7 LVOT Peak Velocity: 1.22 m/s Peak Gradient: 5.91 mmHgMean Velocity: 0.81 m/s Mean Gradient: 3.12 mmHg LVOT Diameter: 2.03 cm LVOT VTI: 22.12 cm LVOT Area: 3.24 cm^2 LVOT SV:71.56 ml LVOT CO: 5.72 l/min LVOT CI: 3.16 l/min/m^2 Tricuspid Valve TR Velocity: 2.82 m/s TR Gradient: 31.71 mmHg [facility] CenterBASI METABOLIC [id number] 12:52:00 Test Item Value Reference Range Interpretation Comments SODIUM (BEAKER) 136 meq/L 136-145 (test code = 381) POTASSIUM (BEAKER) 3.6 meq/L 3.5-5.1 (test code = 379) CHLORIDE (BEAKER) 105 meq/L 98-107 (test code = 382) CO2 (BEAKER) (test 19 meq/L 22-29 L code = 355) BLOOD UREA NITROGEN 46 mg/dL 7-21 H (BEAKER) (test code = 354) CREATININE (BEAKER) 3.81 mg/dL 0.57-1.25 H (test code = 358) GLUCOSE RANDOM 96 mg/dL 70-105 (BEAKER) (test code = 652) CALCIUM (BEAKER) 8.4 mg/dL 8.4-10.2 (test code = 697) EGFR (BEAKER) (test 15 mL/min/1.73 ESTIMA MAI GFR IS code = 1092) sq m NOT ACCURATE CREATININE CLEARANCE IN PREDICTING GLOMERULAR FILTRATION RATE . ESTIMATED GFR I S NOT APPLICABLE FOR DIALYSIS PATIEN TS. Art Class Model ID Jama VICKERS FSpecimen slightly [id number] 12:48:00 Test Item Value Reference Range Interpretation Comments PHOSPHORUS (BEAKER) (test code = 3.7 mg/dL 2.3-4.7 604) Art Class Model ID Jama VICKERS [id number] 12:48:00 Test Item Value Reference Range Interpretation Comments MAGNESIUM (BEAKER) (test code = 2.3 mg/dL 1.6-2.6 627) Art Class Model ID Jama RANCHO FCALCIUM, [id number] 12:43:00 Test Item Value Reference Range Interpretation Comments CALCIUM IONIZED (BEAKER) (test 1.11 mmol/L 1.12-1.27 L code = 698) PH, BLOOD (BEAKER) (test code = 7.39 1810) POCT-GLUCOSE [id number] 12:19:00 Test Item Value Reference Range Interpretation Comments POC-GLUCOSE METER 99 mg/dL 70-110 : TESTED A T [facility] 6720 (BEAKER) (test code = [facility], 1538) [address]: Art Class Model/Techni jessica ID = [id number] for AYDE ALLISON POCT-GLUCOSE [id number] 07:46:00 Test Item Value Reference Range Interpretation Comments POC-GLUCOSE METER 74 mg/dL 70-110 : TESTED A T [facility] 6720 (BEAKER) (test code = [facility], 1538) [address]: Art Class Model/Techni jessica ID = [id number] for AYDE ALLISON OXYGEN SATURATION, [id number] 06:42:00 Test Item Value Reference Range Interpretation Comments O2 SATURATION (MEASURED) (BEAKER) 82.5 % (test code = 1455) BUN and [id number] 03:23:00 Test Item Value Reference Range Interpretation Comments BUN (test code = 35 mg/dL 7-21 H 3094-0) Creatinine (test code 2.99 mg/dL 0.57-1.25 H = 2160-0) BUN/Creatinine Ratio 11.7 For a n ormal (test code = 3097-3) individ ual on a normal diet, th e reference interval for th e mass ratio rang es between 12:1 an d 20:1 (BUN in mg/dL/creatinin e in mg/dL) EGFR (test code = 20 mL/min/1.73 [place] [address]-1) NOT ACCURATE CREATININE CLEARANCE IN PREDICTING GLOMERULAR FILTRATION RATE . ESTIMATED GFR I S NOT APPLICABLE FOR DIALYSIS PATIENTS. JARRED (test code = JARRED) Art Class Model ID - DEANDRE MSpecimen slightly icteric Lab Interpretation Abnormal (test code = 29896-6) [facility] CenterBASA[facility] METABOLIC [id number] 03:23:00 Test Item Value Reference Range Interpretation Comments SODIUM (BEAKER) 137 meq/L 136-145 (test code = 381) POTASSIUM (BEAKER) 3.8 meq/L 3.5-5.1 (test code = 379) CHLORIDE (BEAKER) 105 meq/L 98-107 (test code = 382) CO2 (BEAKER) (test 19 meq/L 22-29 L code = 355) BLOOD UREA NITROGEN 35 mg/dL 7-21 H (BEAKER) (test code = 354) CREATININE (BEAKER) 2.99 mg/dL 0.57-1.25 H (test code = 358) GLUCOSE RANDOM 108 mg/dL 70-105 H (BEAKER) (test code = 652) CALCIUM (BEAKER) 8.5 mg/dL 8.4-10.2 (test code = 697) EGFR (BEAKER) (test 20 mL/min/1.73 ESTIMA MAI GFR IS code = 1092) sq m NOT ACCURATE CREATININE CLEARANCE IN PREDICTING GLOMERULAR FILTRATION RATE . ESTIMATED GFR I S NOT APPLICABLE FOR DIALYSIS PATIEN TS. Art Class Model ID - DEANDRE MSpecimen slightly ictericBUN AND CREATININE W/RATIO 2020-01-30 03:23:00 Test Item Value Reference Range Interpretation Comments BLOOD UREA NITROGEN 35 mg/dL 7-21 H (BEAKER) (test code = 354) CREATININE (BEAKER) 2.99 mg/dL 0.57-1.25 H (test code = 358) BUN/CREATININE RATIO 11.7 For a n ormal (BEAKER) (test code individu al on a = 1800) normal diet, th e reference inter shruthi for the mass ra jose cruz ranges between 12:1 and 20:1 (BUN i n mg/dL/creatinin e in mg/dL) EGFR (BEAKER) (test 20 mL/min/1.73 ESTIMA MAI GFR IS code = 1092) sq m NOT ACCURATE CREATININE CLEARANCE IN PREDICTING GLOMERULAR FILTRATION RATE . ESTIMATED GFR I S NOT APPLICABLE FOR DIALYSIS PATIEN TS. Art Class Model ID - DEANDRE MSpecimen slightly [id number] 03:20:00 Test Item Value Reference Range Interpretation Comments PHOSPHORUS (BEAKER) (test code = 3.8 mg/dL 2.3-4.7 604) Art Class Model ID - DEANDRE [id number] 03:20:00 Test Item Value Reference Range Interpretation Comments MAGNESIUM (BEAKER) (test code = 2.3 mg/dL 1.6-2.6 627) Art Class Model ID - DEANDRE MBLOOD GAS, [id number] 02:58:00 Test Item Value Reference Range Interpretation Comments PH ARTERIAL (BEAKER) (test code = 7.39 7.35-7.45 383) PCO2 ARTERIAL (BEAKER) (test code 37 mmHg 35-45 = 384) PO2 ARTERIAL (BEAKER) (test code 86 mmHg 80-90 = 385) O2 SATURATION ARTERIAL (BEAKER) 96.5 % 96.0-97.0 (test code = 386) HCO3 ARTERIAL (BEAKER) (test code 22 mmol/L 21-29 = 388) BASE EXCESS ARTERIAL (BEAKER) -2.7 mmol/L -2.0-3.0 L (test code = 387) PATIENT TEMPERATURE (BEAKER) 37.0 C (test code = 1818) FIO2 (BEAKER) (test code = 1819) 24.0 % OXYGEN SATURATION, [id number] 02:51:00 Test Item Value Reference Range Interpretation Comments O2 SATURATION (MEASURED) (BEAKER) 93.1 % (test code = 1455) CALCIUM, [id number] 02:51:00 Test Item Value Reference Range Interpretation Comments CALCIUM IONIZED (BEAKER) (test 1.16 mmol/L 1.12-1.27 code = 698) PH, BLOOD (BEAKER) (test code = 7.38 1810) CBC (HEMOGRAM ONLY)2020-01-30 02:48:00 Test Item Value Reference Range Interpretation Comments WHITE BLOOD CELL COUNT (BEAKER) 11.2 K/ L 3.5-10.5 H (test code = 775) RED BLOOD CELL COUNT (BEAKER) 2.48 M/ L 4.63-6.08 L (test code = 761) HEMOGLOBIN (BEAKER) (test code = 8.1 GM/DL 13.7-17.5 L 410) HEMATOCRIT (BEAKER) (test code = 25.0 % 40.1-51.0 L 411) MEAN CORPUSCULAR VOLUME (BEAKER) 100.8 fL 79.0-92.2 H (test code = 753) MEAN CORPUSCULAR HEMOGLOBIN 32.7 pg 25.7-32.2 H (BEAKER) (test code = 751) MEAN CORPUSCULAR HEMOGLOBIN CONC 32.4 GM/DL 32.3-36.5 (BEAKER) (test code = 752) RED CELL DISTRIBUTION WIDTH 17.3 % 11.6-14.4 H (BEAKER) (test code = 412) PLATELET COUNT (BEAKER) (test 138 K/CU MM 150-450 L code = 756) MEAN PLATELET VOLUME (BEAKER) 10.6 fL 9.4-12.4 (test code = 754) NUCLEATED RED BLOOD CELLS 0 /100 WBC 0-0 (BEAKER) (test code = 413) POCT-GLUCOSE [id number] 23:06:00 Test Item Value Reference Range Interpretation Comments POC-GLUCOSE METER 107 mg/dL 70-110 : TESTED A T [facility] 6720 (BEAKER) (test code = [place], 1538) [address]: Art Class Model/Techni jessica ID = [id number] for PA RRIS, CYDNEE BASIC METABOLIC [id number] 21:31:00 Test Item Value Reference Range Interpretation Comments SODIUM (BEAKER) 136 meq/L 136-145 (test code = 381) POTASSIUM (BEAKER) 4.0 meq/L 3.5-5.1 Specimen slightly (test code = 379) hemolyzed CHLORIDE (BEAKER) 104 meq/L 98-107 (test code = 382) CO2 (BEAKER) (test 20 meq/L 22-29 L code = 355) BLOOD UREA NITROGEN 28 mg/dL 7-21 H (BEAKER) (test code = 354) CREATININE (BEAKER) 2.54 mg/dL 0.57-1.25 H Specimen slightly (test code = 358) hemolyzed GLUCOSE RANDOM 109 mg/dL 70-105 H (BEAKER) (test code = 652) CALCIUM (BEAKER) 8.6 mg/dL 8.4-10.2 (test code = 697) EGFR (BEAKER) (test 24 mL/min/1.73 ESTIMA MAI GFR IS code = 1092) sq m NOT ACCURATE CREATININE CLEARANCE IN PREDICTING GLOMERULAR FILTRATION RATE . ESTIMATED GFR I S NOT APPLICABLE FOR DIALYSIS PATIEN TS. Art Class Model ID - BSSpecimen slightly [id number] 21:29:00 Test Item Value Reference Range Interpretation Comments MAGNESIUM (BEAKER) 2.3 mg/dL 1.6-2.6 Specimen slightly (test code = 627) hemolyzed Art Class Model ID - [id number] 21:29:00 Test Item Value Reference Range Interpretation Comments PHOSPHORUS (BEAKER) 3.6 mg/dL 2.3-4.7 Specimen slightly (test code = 604) hemolyzed Art Class Model ID - BSCALCIUM, [id number] 21:00:00 Test Item Value Reference Range Interpretation Comments CALCIUM IONIZED (BEAKER) (test 1.15 mmol/L 1.12-1.27 code = 698) PH, BLOOD (BEAKER) (test code = 7.40 1810) POCT-GLUCOSE [id number] 18:12:00 Test Item Value Reference Range Interpretation Comments POC-GLUCOSE METER 111 mg/dL 70-110 H : TESTED A T [facility] 6720 (BEAKER) (test code = [facility], 1538) 25753: Art Class Model/Techni jessica ID = [id number] for NAYELI WINN POCT-GLUCOSE [id number] 17:53:00 Test Item Value Reference Range Interpretation Comments POC-GLUCOSE METER 69 mg/dL 70-110 L : TESTED A T [facility] 6720 (BEAKER) (test code = [facility], 1538) 22361: Art Class Model/Techni jessica ID = [id number] for AYDE ALLISON Anaerobic [id number] 17:43:00 Test Item Value Reference Range Interpretation Comments Result (test code = No anaerobes isolated 6463-4) [facility] [id number] 17:43:00 Test Item Value Reference Range Interpretation Comments CULTURE (BEAKER) (test No anaerobes isolated code = 1095) [id number] 15:40:00 Test Item Value Reference Range Interpretation Comments Potassium (test code = 3.9 meq/L 3.5-5.1 Speci men 2823-3) slightly hemolyzed JARRED (test code = JARRED) Art Class Model ID - FSE Lab Interpretation Normal (test code = 40700-9) [facility]2020-[facility]-18 15:40:00 Test Item Value Reference Range Interpretation Comments POTASSIUM (BEAKER) 3.9 meq/L 3.5-5.1 Specimen slightly (test code = 379) hemolyzed Art Class Model ID - [id number] 12:19:00 Test Item Value Reference Range Interpretation Comments MAGNESIUM (BEAKER) 2.2 mg/dL 1.6-2.6 Specimen slightly (test code = 627) hemolyzed Art Class Model ID - [id number] 12:19:00 Test Item Value Reference Range Interpretation Comments PHOSPHORUS (BEAKER) 3.0 mg/dL 2.3-4.7 Specimen slightly (test code = 604) hemolyzed Art Class Model ID - NTPBASIC METABOLIC [id number] 12:19:00 Test Item Value Reference Range Interpretation Comments SODIUM (BEAKER) 136 meq/L 136-145 (test code = 381) POTASSIUM (BEAKER) 4.9 meq/L 3.5-5.1 Specimen slightly (test code = 379) hemolyzed CHLORIDE (BEAKER) 107 meq/L 98-107 (test code = 382) CO2 (BEAKER) (test 20 meq/L 22-29 L code = 355) BLOOD UREA NITROGEN 20 mg/dL 7-21 (BEAKER) (test code = 354) CREATININE (BEAKER) 1.59 mg/dL 0.57-1.25 H Specimen slightly (test code = 358) hemolyzed GLUCOSE RANDOM 106 mg/dL 70-105 H (BEAKER) (test code = 652) CALCIUM (BEAKER) 8.8 mg/dL 8.4-10.2 (test code = 697) EGFR (BEAKER) (test 42 mL/min/1.73 ESTIMA MAI GFR IS code = 1092) sq m NOT ACCURATE CREATININE CLEARANCE IN PREDICTING GLOMERULAR FILTRATION RATE . ESTIMATED GFR I S NOT APPLICABLE FOR DIALYSIS PATIEN TS. Art Class Model ID - NTPSpecimen slightly ictericCALCIUM, [id number] 12:08:00 Test Item Value Reference Range Interpretation Comments CALCIUM IONIZED (BEAKER) (test 1.13 mmol/L 1.12-1.27 code = 698) PH, BLOOD (BEAKER) (test code = 7.40 1810) POCT-GLUCOSE [id number] 11:57:00 Test Item Value Reference Range Interpretation Comments POC-GLUCOSE METER 116 mg/dL 70-110 H : TESTED A T [facility] 6720 (BEAKER) (test code = [facility], 1538) 767[address]: Art Class Model/Techni jessica ID = [id number] for GARCIA WK, NAYELI OXYGEN SATURATION, [id number] 10:41:00 Test Item Value Reference Range Interpretation Comments O2 SATURATION (MEASURED) (PIERRE) 87.9 % (test code = 1455) POCT-GLUCOSE [id number] 10:02:00 Test Item Value Reference Range Interpretation Comments POC-GLUCOSE METER 235 mg/dL 70-110 H : TESTED A T [facility] 6720 (PIERRE) (test code = ARIS Chaney [facility], 1538) 91363: Art Class Model/Techni jessica ID = [id number] for GARCIA WK, NAYELI [id number] 08:38:00 Test Item Value Reference Range Interpretation Comments POTASSIUM (PIERRE) 3.8 meq/L 3.5-5.1 Specimen slightly (test code = 379) hemolyzed Art Class Model ID - RANCHO FPOCT-GLUCOSE [id number] 08:15:00 Test Item Value Reference Range Interpretation Comments POC-GLUCOSE METER 68 mg/dL 70-110 L : TESTED A T [facility] 6720 (PIERRE) (test code = [facility] [employer] [facility], 153) 68125: Art Class Model/Techni jessica ID = [id number] for AYDE ALLISON Hepatic function [id number] 04:21:00 Test Item Value Reference Range Interpretation Comments Protein, Total (test code 6.0 6.0- 8.3 gm/dL = 2885-2) Albumin (test code = 3.2 g/dL 3.5-5 L 31286-5) Total Bilirubin (test 3.2 mg/dL 0.2-1.2 H code = 1975-2) Bilirubin, Direct (test 2.3 mg/dL 0.1-0.5 H code = 1968-7) Alkaline Phosphatase 212 U/L 40-150 H (test code = 6768-6) AST (test code = 1920-8) 87 U/L 5-34 H ALT (test code = 1742-6) 45 U/L 6-55 JARRED (test code = JARRED) Art Class Model ID - DANIEL Kaufman slightly icteric Lab Interpretation (test Abnormal code = 07222-3) [facility] Center[facility]OS[facility]2020-[facility]-18 04:21:00 Test Item Value Reference Range Interpretation Comments PHOSPHORUS (BEAKER) (test code = 3.8 mg/dL 2.3-4.7 604) Art Class Model ID Jama SANCHEZ [id number] 04:21:00 Test Item Value Reference Range Interpretation Comments MAGNESIUM (BEAKER) (test code = 2.3 mg/dL 1.6-2.6 627) Art Class Model ID Jama SANCHEZ LHEPATIC FUNCTION [id number] 04:21:00 Test Item Value Reference Range Interpretation Comments TOTAL PROTEIN (BEAKER) (test code = 6.0 gm/dL 6.0-8.3 770) ALBUMIN (BEAKER) (test code = 1145) 3.2 g/dL 3.5-5.0 L BILIRUBIN TOTAL (BEAKER) (test code 3.2 mg/dL 0.2-1.2 H = 377) BILIRUBIN DIRECT (BEAKER) (test 2.3 mg/dL 0.1-0.5 H code = 706) ALKALINE PHOSPHATASE (BEAKER) (test 212 U/L 40-150 H code = 346) AST (SGOT) (BEAKER) (test code = 87 U/L 5-34 H 353) ALT (SGPT) (BEAKER) (test code = 45 U/L 6-55 347) Art Class Model ID Jama SANCHEZ LSpecimen slightly ictericBASIC METABOLIC [id number] 04:21:00 Test Item Value Reference Range Interpretation Comments SODIUM (BEAKER) 138 meq/L 136-145 (test code = 381) POTASSIUM (BEAKER) 3.9 meq/L 3.5-5.1 (test code = 379) CHLORIDE (BEAKER) 105 meq/L 98-107 (test code = 382) CO2 (BEAKER) (test 19 meq/L 22-29 L code = 355) BLOOD UREA NITROGEN 21 mg/dL 7-21 (BEAKER) (test code = 354) CREATININE (BEAKER) 1.69 mg/dL 0.57-1.25 H (test code = 358) GLUCOSE RANDOM 104 mg/dL 70-105 (BEAKER) (test code = 652) CALCIUM (BEAKER) 9.2 mg/dL 8.4-10.2 (test code = 697) EGFR (BEAKER) (test 39 mL/min/1.73 ESTIMA MAI GFR IS code = 1092) sq m NOT ACCURATE CREATININE CLEARANCE IN PREDICTING GLOMERULAR FILTRATION RATE . ESTIMATED GFR I S NOT APPLICABLE FOR DIALYSIS PATIEN TS. Art Class Model ID Jama PENGpecimen slightly ictericBUN AND CREATININE W/RATIO 2020-01-29 04:21:00 Test Item Value Reference Range Interpretation Comments BLOOD UREA NITROGEN 21 mg/dL 7-21 (BEAKER) (test code = 354) CREATININE (BEAKER) 1.69 mg/dL 0.57-1.25 H (test code = 358) BUN/CREATININE RATIO 12.4 For a n ormal (BEAKER) (test code individu al on a = 1800) normal diet, th e reference inter shruthi for the mass ra jose cruz ranges between 12:1 and 20:1 (BUN i n mg/dL/creatinin e in mg/dL) EGFR (BEAKER) (test 39 mL/min/1.73 ESTIMA MAI GFR IS code = 1092) sq m NOT ACCURATE CREATININE CLEARANCE IN PREDICTING GLOMERULAR FILTRATION RATE . ESTIMATED GFR I S NOT APPLICABLE FOR DIALYSIS PATIEN TS. Art Class Model ID - DANIEL PENGpecimen slightly ictericOXYGEN SATURATION, MEASURED 2020-01-29 04:20:00 Test Item Value Reference Range Interpretation Comments O2 SATURATION (MEASURED) (BEAKER) 89.5 % (test code = 1455) BLOOD GAS, [id number] 04:15:00 Test Item Value Reference Range Interpretation Comments PH ARTERIAL (BEAKER) (test code = 7.39 7.35-7.45 383) PCO2 ARTERIAL (BEAKER) (test code 35 mmHg 35-45 = 384) PO2 ARTERIAL (BEAKER) (test code 87 mmHg 80-90 = 385) O2 SATURATION ARTERIAL (BEAKER) 96.6 % 96.0-97.0 (test code = 386) HCO3 ARTERIAL (BEAKER) (test code 21 mmol/L 21-29 = 388) BASE EXCESS ARTERIAL (BEAKER) -4.0 mmol/L -2.0-3.0 L (test code = 387) PATIENT TEMPERATURE (BEAKER) 37.0 C (test code = 1818) FIO2 (BEAKER) (test code = 1819) 28.0 % CALCIUM, [id number] 04:13:00 Test Item Value Reference Range Interpretation Comments CALCIUM IONIZED (BEAKER) (test 1.17 mmol/L 1.12-1.27 code = 698) PH, BLOOD (BEAKER) (test code = 7.39 1810) CBC (HEMOGRAM ONLY)2020-01-29 04:11:00 Test Item Value Reference Range Interpretation Comments WHITE BLOOD CELL COUNT (BEAKER) 10.4 K/ L 3.5-10.5 (test code = 775) RED BLOOD CELL COUNT (BEAKER) 2.67 M/ L 4.63-6.08 L (test code = 761) HEMOGLOBIN (BEAKER) (test code = 8.7 GM/DL 13.7-17.5 L 410) HEMATOCRIT (BEAKER) (test code = 26.7 % 40.1-51.0 L 411) MEAN CORPUSCULAR VOLUME (BEAKER) 100.0 fL 79.0-92.2 H (test code = 753) MEAN CORPUSCULAR HEMOGLOBIN 32.6 pg 25.7-32.2 H (BEAKER) (test code = 751) MEAN CORPUSCULAR HEMOGLOBIN CONC 32.6 GM/DL 32.3-36.5 (BEAKER) (test code = 752) RED CELL DISTRIBUTION WIDTH 16.4 % 11.6-14.4 H (BEAKER) (test code = 412) PLATELET COUNT (BEAKER) (test 128 K/CU MM 150-450 L code = 756) MEAN PLATELET VOLUME (BEAKER) 11.3 fL 9.4-12.4 (test code = 754) NUCLEATED RED BLOOD CELLS 1 /100 WBC 0-0 H (BEAKER) (test code = 413) POCT-GLUCOSE [id number] 23:46:00 Test Item Value Reference Range Interpretation Comments POC-GLUCOSE METER 103 mg/dL 70-110 : TESTED A T [facility] 6720 (BEAKER) (test code = [place], 1538) 91887: Art Class Model/Techni jessica ID = [id number] for CHERYL FRAGA [id number] 20:53:00 Test Item Value Reference Range Interpretation Comments PHOSPHORUS (BEAKER) (test code = 3.4 mg/dL 2.3-4.7 604) Art Class Model ID - [id number] 20:53:00 Test Item Value Reference Range Interpretation Comments MAGNESIUM (BEAKER) (test code = 2.2 mg/dL 1.6-2.6 627) Art Class Model ID - JIMMYASIC METABOLIC [id number] 20:53:00 Test Item Value Reference Range Interpretation Comments SODIUM (BEAKER) 137 meq/L 136-145 (test code = 381) POTASSIUM (BEAKER) 3.8 meq/L 3.5-5.1 (test code = 379) CHLORIDE (BEAKER) 105 meq/L 98-107 (test code = 382) CO2 (BEAKER) (test 19 meq/L 22-29 L code = 355) BLOOD UREA NITROGEN 22 mg/dL 7-21 H (BEAKER) (test code = 354) CREATININE (BEAKER) 1.73 mg/dL 0.57-1.25 H (test code = 358) GLUCOSE RANDOM 100 mg/dL 70-105 (BEAKER) (test code = 652) CALCIUM (BEAKER) 8.8 mg/dL 8.4-10.2 (test code = 697) EGFR (BEAKER) (test 38 mL/min/1.73 ESTIMA MAI GFR IS code = 1092) sq m NOT ACCURATE CREATININE CLEARANCE IN PREDICTING GLOMERULAR FILTRATION RATE . ESTIMATED GFR I S NOT APPLICABLE FOR DIALYSIS PATIEN TS. Art Class Model ID - JOSHGSpecimen slightly ictericLACTIC ACID, [id number] 20:50:00 Test Item Value Reference Range Interpretation Comments LACTATE BLOOD 1.0 mmol/L 0.5-2.2 Specimen sligh tly ARTERIAL (2) (BEAKER) hemoly zed (test code = 2874) Art Class Model ID - JOSHGBLOOD GAS, [id number] 20:34:00 Test Item Value Reference Range Interpretation Comments PH ARTERIAL (BEAKER) (test code = 7.44 7.35-7.45 383) PCO2 ARTERIAL (BEAKER) (test code 32 mmHg 35-45 L = 384) PO2 ARTERIAL (BEAKER) (test code 125 mmHg 80-90 H = 385) O2 SATURATION ARTERIAL (BEAKER) 98.7 % 96.0-97.0 H (test code = 386) HCO3 ARTERIAL (BEAKER) (test code 21 mmol/L 21-29 = 388) BASE EXCESS ARTERIAL (BEAKER) -2.5 mmol/L -2.0-3.0 L (test code = 387) PATIENT TEMPERATURE (BEAKER) 36.5 C (test code = 1818) FIO2 (BEAKER) (test code = 1819) 28.0 % CALCIUM, [id number] 20:34:00 Test Item Value Reference Range Interpretation Comments CALCIUM IONIZED (BEAKER) (test 1.09 mmol/L 1.12-1.27 L code = 698) PH, BLOOD (BEAKER) (test code = 7.43 1810) POCT-GLUCOSE [id number] 17:47:00 Test Item Value Reference Range Interpretation Comments POC-GLUCOSE METER 104 mg/dL 70-110 : TESTED A T [facility] 6720 (BEAKER) (test code = [facility] [employer] [facility], 1538) 26814: Art Class Model/Techni jessica ID = [id number] for LO MARGOT, LAINE POCT-GLUCOSE [id number] 17:32:00 Test Item Value Reference Range Interpretation Comments POC-GLUCOSE METER 40 mg/dL 70-110 LL : TESTED A T [facility] 6720 (BEAKER) (test code = [employer] [facility], 1538) 27919: Art Class Model/Techni jessica ID = [id number] for LOVE LL, LAINE OXYGEN SATURATION, [id number] 14:33:00 Test Item Value Reference Range Interpretation Comments O2 SATURATION (MEASURED) (BEAKER) 98.6 % (test code = 1455) [id number] 13:28:00 Test Item Value Reference Range Interpretation Comments PHOSPHORUS (BEAKER) (test code = 3.7 mg/dL 2.3-4.7 604) Art Class Model ID - [id number] 13:28:00 Test Item Value Reference Range Interpretation Comments MAGNESIUM (BEAKER) (test code = 2.2 mg/dL 1.6-2.6 627) Art Class Model ID - JOSHGBASIC METABOLIC [id number] 13:28:00 Test Item Value Reference Range Interpretation Comments SODIUM (BEAKER) 136 meq/L 136-145 (test code = 381) POTASSIUM (BEAKER) 3.9 meq/L 3.5-5.1 (test code = 379) CHLORIDE (BEAKER) 104 meq/L 98-107 (test code = 382) CO2 (BEAKER) (test 22 meq/L 22-29 code = 355) BLOOD UREA NITROGEN 24 mg/dL 7-21 H (BEAKER) (test code = 354) CREATININE (BEAKER) 1.84 mg/dL 0.57-1.25 H (test code = 358) GLUCOSE RANDOM 118 mg/dL 70-105 H (BEAKER) (test code = 652) CALCIUM (BEAKER) 8.4 mg/dL 8.4-10.2 (test code = 697) EGFR (BEAKER) (test 35 mL/min/1.73 ESTIMA MAI GFR IS code = 1092) sq m NOT ACCURATE CREATININE CLEARANCE IN PREDICTING GLOMERULAR FILTRATION RATE . ESTIMATED GFR I S NOT APPLICABLE FOR DIALYSIS PATIEN TS. Art Class Model ID - JOSHGSpecimen slightly ictericCALCIUM, [id number] 13:06:00 Test Item Value Reference Range Interpretation Comments CALCIUM IONIZED (BEAKER) (test 1.10 mmol/L 1.12-1.27 L code = 698) PH, BLOOD (BEAKER) (test code = 7.40 1810) POCT-GLUCOSE [id number] 11:20:00 Test Item Value Reference Range Interpretation Comments POC-GLUCOSE METER 79 mg/dL 70-110 : TESTED A T [facility] 6720 (BEAKER) (test code = [facility], 1538) 44476: Art Class Model/Techni jessica ID = [id number] for LAINE MARTINEZ [id number] 09:12:00 Test Item Value Reference Range Interpretation Comments POTASSIUM (BEAKER) (test code = 3.7 meq/L 3.5-5.1 379) Art Class Model ID - JOSHGPOCT-GLUCOSE [id number] 08:48:00 Test Item Value Reference Range Interpretation Comments POC-GLUCOSE METER 121 mg/dL 70-110 H : TESTED A T [facility] 6720 (BEAKER) (test code = [facility], 1538) 37252: Art Class Model/Techni jessica ID = [id number] for DU MIRIAM CONDON pH, [id number] 08:41:00 Test Item Value Reference Range Interpretation Comments pH, Arterial (test code = 2744-1) 7.39 7.35-7.45 Lab Interpretation (test code = Normal 53354-9) [facility], [id number] 08:41:00 Test Item Value Reference Range Interpretation Comments PH ARTERIAL (BEAKER) (test code = 383) 7.39 7.35-7.45 POCT-GLUCOSE [id number] 07:54:00 Test Item Value Reference Range Interpretation Comments POC-GLUCOSE METER 70 mg/dL 70-110 : TESTED A T [facility] 6720 (BEAKER) (test code = [place], 1538) 32178: Art Class Model/Techni jessica ID = [id number] for LAINE MARTINEZ [id number] 04:33:00 Test Item Value Reference Range Interpretation Comments PHOSPHORUS (BEAKER) (test code = 3.9 mg/dL 2.3-4.7 604) Art Class Model ID - DANIEL [id number] 04:33:00 Test Item Value Reference Range Interpretation Comments MAGNESIUM (BEAKER) (test code = 2.3 mg/dL 1.6-2.6 627) Art Class Model ID - DANIEL LHEPATIC FUNCTION [id number] 04:33:00 Test Item Value Reference Range Interpretation Comments TOTAL PROTEIN (BEAKER) (test code = 5.5 gm/dL 6.0-8.3 L 770) ALBUMIN (BEAKER) (test code = 1145) 3.0 g/dL 3.5-5.0 L BILIRUBIN TOTAL (BEAKER) (test code 2.3 mg/dL 0.2-1.2 H = 377) BILIRUBIN DIRECT (BEAKER) (test 1.9 mg/dL 0.1-0.5 H code = 706) ALKALINE PHOSPHATASE (BEAKER) (test 168 U/L 40-150 H code = 346) AST (SGOT) (BEAKER) (test code = 65 U/L 5-34 H 353) ALT (SGPT) (BEAKER) (test code = 40 U/L 6-55 347) Art Class Model ID - DANIEL LBASIC METABOLIC [id number] 04:33:00 Test Item Value Reference Range Interpretation Comments SODIUM (BEAKER) 137 meq/L 136-145 (test code = 381) POTASSIUM (BEAKER) 3.9 meq/L 3.5-5.1 (test code = 379) CHLORIDE (BEAKER) 104 meq/L 98-107 (test code = 382) CO2 (BEAKER) (test 19 meq/L 22-29 L code = 355) BLOOD UREA NITROGEN 26 mg/dL 7-21 H (BEAKER) (test code = 354) CREATININE (BEAKER) 1.78 mg/dL 0.57-1.25 H (test code = 358) GLUCOSE RANDOM 105 mg/dL 70-105 (BEAKER) (test code = 652) CALCIUM (BEAKER) 8.7 mg/dL 8.4-10.2 (test code = 697) EGFR (BEAKER) (test 37 mL/min/1.73 ESTIMA MAI GFR IS code = 1092) sq m NOT ACCURATE CREATININE CLEARANCE IN PREDICTING GLOMERULAR FILTRATION RATE . ESTIMATED GFR I S NOT APPLICABLE FOR DIALYSIS PATIEN TS. Art Class Model ID - DANIEL LBUN AND CREATININE [id number] 04:33:00 Test Item Value Reference Range Interpretation Comments BLOOD UREA NITROGEN 26 mg/dL 7-21 H (BEAKER) (test code = 354) CREATININE (BEAKER) 1.78 mg/dL 0.57-1.25 H (test code = 358) BUN/CREATININE RATIO 14.6 For a n ormal (BEAKER) (test code individu al on a = 1800) normal diet, th e reference inter shruthi for the mass ra jose cruz ranges between 12:1 and 20:1 (BUN i n mg/dL/creatinin e in mg/dL) EGFR (BEAKER) (test 37 mL/min/1.73 ESTIMA MAI GFR IS code = 1092) sq m NOT ACCURATE CREATININE CLEARANCE IN PREDICTING GLOMERULAR FILTRATION RATE . ESTIMATED GFR I S NOT APPLICABLE FOR DIALYSIS PATIEN TS. Art Class Model ID - DANIEL LLACTIC ACID, [id number] 03:47:00 Test Item Value Reference Range Interpretation Comments LACTATE BLOOD ARTERIAL (2) 1.2 mmol/L 0.5-2.2 (BEAKER) (test code = 2874) Art Class Model ID - DANIEL LCBC (HEMOGRAM ONLY)2020-01-28 03:46:00 Test Item Value Reference Range Interpretation Comments WHITE BLOOD CELL COUNT (BEAKER) 8.9 K/ L 3.5-10.5 (test code = 775) RED BLOOD CELL COUNT (BEAKER) 2.47 M/ L 4.63-6.08 L (test code = 761) HEMOGLOBIN (BEAKER) (test code = 7.7 GM/DL 13.7-17.5 L 410) HEMATOCRIT (BEAKER) (test code = 24.5 % 40.1-51.0 L 411) MEAN CORPUSCULAR VOLUME (BEAKER) 99.2 fL 79.0-92.2 H (test code = 753) MEAN CORPUSCULAR HEMOGLOBIN 31.2 pg 25.7-32.2 (BEAKER) (test code = 751) MEAN CORPUSCULAR HEMOGLOBIN CONC 31.4 GM/DL 32.3-36.5 L (BEAKER) (test code = 752) RED CELL DISTRIBUTION WIDTH 15.8 % 11.6-14.4 H (BEAKER) (test code = 412) PLATELET COUNT (BEAKER) (test 109 K/CU MM 150-450 L code = 756) MEAN PLATELET VOLUME (BEAKER) 11.0 fL 9.4-12.4 (test code = 754) NUCLEATED RED BLOOD CELLS 1 /100 WBC 0-0 H (BEAKER) (test code = 413) BLOOD GAS, [id number] 03:11:00 Test Item Value Reference Range Interpretation Comments PH ARTERIAL (BEAKER) (test code = 7.39 7.35-7.45 383) PCO2 ARTERIAL (BEAKER) (test code 35 mmHg 35-45 = 384) PO2 ARTERIAL (BEAKER) (test code 130 mmHg 80-90 H = 385) O2 SATURATION ARTERIAL (BEAKER) 98.6 % 96.0-97.0 H (test code = 386) HCO3 ARTERIAL (BEAKER) (test code 21 mmol/L 21-29 = 388) BASE EXCESS ARTERIAL (BEAKER) -4.0 mmol/L -2.0-3.0 L (test code = 387) PATIENT TEMPERATURE (BEAKER) 36.5 C (test code = 1818) FIO2 (BEAKER) (test code = 1819) 28.0 % CALCIUM, [id number] 03:11:00 Test Item Value Reference Range Interpretation Comments CALCIUM IONIZED (BEAKER) (test 1.15 mmol/L 1.12-1.27 code = 698) PH, BLOOD (BEAKER) (test code = 7.38 1810) OXYGEN SATURATION, [id number] 03:09:00 Test Item Value Reference Range Interpretation Comments O2 SATURATION (MEASURED) (BEAKER) 85.0 % (test code = 1455) PH, [id number] 03:09:00 Test Item Value Reference Range Interpretation Comments PH ARTERIAL (BEAKER) (test code = 383) 7.39 7.35-7.45 RAD, CHEST, 1 VIEW, NON [id number] 02:17:00Reason for exam:->evaluate resp statusShould this be performed at the bedside?->YesFINAL REPORT RAD, CHEST, 1 VIEW, NON DEPT INDICATION: evaluate resp status COM PARISON: January 27, 2020. FINDINGS: Portable frontal view of the chest. IMPRESSION: Support Lines: IABP device no longer identified. Right chest ICD device is stable. Left IJ catheter is also stable. Lungs and pleura: Basilar hazy opacities possibly atelectasis and layering effusions, similar to prior exam. Vascular congestion is stable. Stable retrocardiac atelectasis. No pneumothorax.Heart and mediastinum: Stable contours. Additional findings: None. Signed: Erik Merrill MDReport Verified Date/Time: 01/28/2020 02:17:11 POCT- GLUCOSE [id number] 23:09:00 Test Item Value Reference Range Interpretation Comments POC-GLUCOSE METER 92 mg/dL 70-110 : TESTED A T [facility] 6720 (BEAKER) (test code = [place], 1538) [address]: Art Class Model/Techni jessica ID = [id number] for [facility] CALCIUM, [id number] 22:24:00 Test Item Value Reference Range Interpretation Comments CALCIUM IONIZED (BEAKER) (test 1.13 mmol/L 1.12-1.27 code = 698) PH, BLOOD (BEAKER) (test code = 7.37 1810) [id number] 21:11:00 Test Item Value Reference Range Interpretation Comments PHOSPHORUS (BEAKER) (test code = 4.3 mg/dL 2.3-4.7 604) Art Class Model ID - [id number] 21:11:00 Test Item Value Reference Range Interpretation Comments MAGNESIUM (BEAKER) (test code = 2.1 mg/dL 1.6-2.6 627) Art Class Model ID - DBBASIC METABOLIC [id number] 21:11:00 Test Item Value Reference Range Interpretation Comments SODIUM (BEAKER) 136 meq/L 136-145 (test code = 381) POTASSIUM (BEAKER) 4.0 meq/L 3.5-5.1 (test code = 379) CHLORIDE (BEAKER) 104 meq/L 98-107 (test code = 382) CO2 (BEAKER) (test 19 meq/L 22-29 L code = 355) BLOOD UREA NITROGEN 27 mg/dL 7-21 H (BEAKER) (test code = 354) CREATININE (BEAKER) 2.07 mg/dL 0.57-1.25 H (test code = 358) GLUCOSE RANDOM 101 mg/dL 70-105 (BEAKER) (test code = 652) CALCIUM (BEAKER) 8.6 mg/dL 8.4-10.2 (test code = 697) EGFR (BEAKER) (test 31 mL/min/1.73 ESTIMA MAI GFR IS code = 1092) sq m NOT ACCURATE CREATININE CLEARANCE IN PREDICTING GLOMERULAR FILTRATION RATE . ESTIMATED GFR I S NOT APPLICABLE FOR DIALYSIS PATIEN TS. Art Class Model ID - DBSpecimen slightly ictericLACTIC ACID, [id number] 21:09:00 Test Item Value Reference Range Interpretation Comments LACTATE BLOOD ARTERIAL (2) 1.3 mmol/L 0.5-2.2 (BEAKER) (test code = 2874) Art Class Model ID - DBBLOOD GAS, [id number] 20:50:00 Test Item Value Reference Range Interpretation Comments PH ARTERIAL (BEAKER) (test code = 7.37 7.35-7.45 383) PCO2 ARTERIAL (BEAKER) (test code 38 mmHg 35-45 = 384) PO2 ARTERIAL (BEAKER) (test code 109 mmHg 80-90 H = 385) O2 SATURATION ARTERIAL (BEAKER) 98.0 % 96.0-97.0 H (test code = 386) HCO3 ARTERIAL (BEAKER) (test code 21 mmol/L 21-29 = 388) BASE EXCESS ARTERIAL (BEAKER) -3.8 mmol/L -2.0-3.0 L (test code = 387) PATIENT TEMPERATURE (BEAKER) 36.4 C (test code = 1818) FIO2 (BEAKER) (test code = 1819) 28.0 % OXYGEN SATURATION, [id number] 20:49:00 Test Item Value Reference Range Interpretation Comments O2 SATURATION (MEASURED) (BEAKER) 86.0 % (test code = 1455) 2D Echo W/Doppler(CW/PW/Color)2020-01-27 19:14:07Ejection FractionSLEH ECHO HEARTLAB MKCKESSON CPACSInterface, External Ris In - 01/27/2020 7:14 PM C DTTransthoracic Echocardiography Report (TTE) Demographics Patient Name STEVE GAMEZ Date of Study 01/27/2020 MIGUEL Gender Male Visit Number [id number] Race Unknown Room Number C823 Number Date of 1935 Referring Physician Anselmo Ahmadi Age 84 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 LV is severely enlarged. 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 The other segments are mildly hypokinetic. LVEF is severely reduced (25-29%) 2. Grade 2 diastolic dysfunction (moderately increased LA pressure). 3. RV chamber size is normal . Global RVsystolic function is low normal 4. Estimated peak systolic PA pressure is 40-45 mmHg (mild pulmonary hypertension) . 5. A small pericardial effusion is present . Previous Study In comparison with the prior exam 5-11-20 the following changes are noted: LV systolic function is the same, increased sizes of aortic root and ascending aorta, a small pericardial effusion are new . Signature Findings Technical Quality: Technically adequate exam. Left Ventricle The leftventricle is chamber size (by vol index) is severely enlarged (male - LVED vol >100ml/m2). Normal LV wall thickness. The following segment(s) appear akinetic: apex, all apical, anteroseptum, all mid- distal segments. The other segments are mildly hypokinetic. Global LV systolic function severely reduced . LVEF by Cleary's method of disk assessment is severely reduced (25-29%) . The LVEF was me asured using Cleary's bi-plane method of disk . LV endocardium is adequately visualized with IV ultrasound enhancing agent. Grade 2 diastolic dysfunction (moderately increased LA pressure). Left Atrium LA size is moderately enlarged (42-48 ml/m2) . Right Ventricle RV chamber size is normal . Global RV systolic function is low normal . Right Atrium RA cavity size is mildly enlarged . Aortic Valve Mild AoV cusp calcification. Mild aortic regurgitation. Mitral Valve Mild mitral annular calcification. Mild MV leaflet calcification. Mild mitral regurgitation. Tricuspid Valve Mild tricuspid regurgitation. Estimatedpeak systolic PA pressure is 40-45 mmHg (mild pulmonary hypertension) . Pulmonic Valve Mild pulmonary regurgitation. Normal PV structure and function. Aorta Aortic root size (Sinus of Valsalva diameter) is mildly dilated. 3.9 cm Pericardium A small pericardial effusion is present . IVC/SVC/PA/PV/Pleural The estimated RA pressure by IVC dynamics 5-10mmHg . Chambers/Structures Left Atrium LA Volume: 80.27 ml LA Area: 29.83 cm^2 LA Vol. Index: 44 ml/m ^2 Left Ventricle LVIDd: 5.03 cm LV Septum Diastolic: 1.04 cm LV PW Diastolic: 1.04 cm LVEDV Cleary's:220.79 ml LVESV Cleary's:164 ml LVEF Cleary's: 25.7 % LVEDVI: 122 ml/m^2 LVESVI: 91 ml/m^2 LVOT Diameter: 2.13 cm Right Atrium RA Vol. (Sngl Plane): 66.27 ml Right Ventricle TAPSE: 1.08 cm Aorta Ao Root S of Shruthi.: 3.87 cm Ascending Aorta: 4.2 cm Doppler/Quantitative Measurements Mitral Valve MV Peak E-Wave: 1.22 m/s MV Peak A-Wave: 0.69 m/s E/A Ratio: 1.76 Peak Gradient: 5.96 mmHg Deceleration Time: 128.7 msec MV Tej. Peak: Tissue Doppler E' Septal Velocity: 0.04 m/s E/E': 33.57 E' Lateral Velocity: 0.08 m/s Aortic Valve Peak Velocity: 1.4 m/s Mean Velocity: 0.93 m/s Peak Gradient: 7.88 mmHg Mean Gradient: 4.2mmHg AV Area (continuity): 2.7 cm^2 AV VTI: 22.29 cm AV DVI: 0.76 LVOT Peak Velocity: 0.94 m/s Peak Gradient: 3.56 mmHg Mean Velocity: 0.62 m/s Mean Gradient: 1.84 mmHg LVOT Diameter: 2.13 cm LVOT VTI: 16.88 cm LVOT Area: 3.56 cm^2 LVOT SV:60.12 ml LVOT CO: 4.87 l/min LVOT CI: 2.69 l/min/m^2 Tricuspid Valve TR Velocity: 2.93 m/sTR Gradient: 34.4 mmHgCHI [facility] CenterPOTASSIUM2020-05-16 15:48:00 Test Item Value Reference Range Interpretation Comments POTASSIUM (BEAKER) 4.1 meq/L 3.5-5.1 Specimen slightly (test code = 379) hemolyzed Art Class Model ID - JOSHGPH, [id number] 15:43:00 Test Item Value Reference Range Interpretation Comments PH ARTERIAL (BEAKER) (test code = 383) 7.33 7.35-7.45 L POCT-GLUCOSE [id number] 15:40:00 Test Item Value Reference Range Interpretation Comments POC-GLUCOSE METER 100 mg/dL 70-110 : TESTED A T [facility] 6720 (BEAKER) (test code = ARIS Ch[place], 1538) [address]: Art Class Model/Techni jessica ID = [id number] for NAYELI WINN BASIC METABOLIC [id number] 11:36:00 Test Item Value Reference Range Interpretation Comments SODIUM (BEAKER) 135 meq/L 136-145 L (test code = 381) POTASSIUM (BEAKER) 3.7 meq/L 3.5-5.1 (test code = 379) CHLORIDE (BEAKER) 105 meq/L 98-107 (test code = 382) CO2 (BEAKER) (test 19 meq/L 22-29 L code = 355) BLOOD UREA NITROGEN 30 mg/dL 7-21 H (BEAKER) (test code = 354) CREATININE (BEAKER) 2.27 mg/dL 0.57-1.25 H (test code = 358) GLUCOSE RANDOM 101 mg/dL 70-105 (BEAKER) (test code = 652) CALCIUM (BEAKER) 8.2 mg/dL 8.4-10.2 L (test code = 697) EGFR (BEAKER) (test 28 mL/min/1.73 ESTIMA MAI GFR IS code = 1092) sq m NOT ACCURATE CREATININE CLEARANCE IN PREDICTING GLOMERULAR FILTRATION RATE . ESTIMATED GFR I S NOT APPLICABLE FOR DIALYSIS PATIEN TS. Art Class Model ID Jama VICKERS [id number] 11:35:00 Test Item Value Reference Range Interpretation Comments PHOSPHORUS (BEAKER) (test code = 4.1 mg/dL 2.3-4.7 604) Art Class Model ID Jama VICKERS [id number] 11:35:00 Test Item Value Reference Range Interpretation Comments MAGNESIUM (BEAKER) (test code = 2.1 mg/dL 1.6-2.6 627) Art Class Model ID Jama VICKERS FPOCT-GLUCOSE [id number] 11:22:00 Test Item Value Reference Range Interpretation Comments POC-GLUCOSE METER 95 mg/dL 70-110 : TESTED A T [facility] 6720 (BEAKER) (test code = ARIS Chaney [place], 1538) [address]: Art Class Model/Techni jessica ID = [id number] for NAYELI ROMERO CALCIUM, [id number] 11:21:00 Test Item Value Reference Range Interpretation Comments CALCIUM IONIZED (BEAKER) (test 1.14 mmol/L 1.12-1.27 code = 698) PH, BLOOD (BEAKER) (test code = 7.35 1810) [id number] 08:20:00 Test Item Value Reference Range Interpretation Comments POTASSIUM (BEAKER) (test code = 4.1 meq/L 3.5-5.1 379) Art Class Model ID - RANCHO FPOCT-GLUCOSE [id number] 07:52:00 Test Item Value Reference Range Interpretation Comments POC-GLUCOSE METER 99 mg/dL 70-110 : TESTED A T [facility] 6720 (BEAKER) (test code = [facility], 1538) 007[address]: Art Class Model/Techni jessica ID = [id number] for NAYELI ROMERO PH, [id number] 07:49:00 Test Item Value Reference Range Interpretation Comments PH ARTERIAL (BEAKER) (test code = 383) 7.38 7.35-7.45 HGB/HCT (H&H)-Stat [id number] 06:44:00 Test Item Value Reference Range Interpretation Comments Hemoglobin (test code = 786-4) 7.9 g/dL 13-16.8 L Hematocrit (test code = 4544-3) 23.0 % 40-50 L Lab Interpretation (test code = Abnormal 54955-1) [facility] - STAT [id number] 06:44:00 Test Item Value Reference Range Interpretation Comments HEMOGLOBIN (BEAKER) (test code = 7.9 g/dL 13.0-16.8 L 410) HEMATOCRIT (BEAKER) (test code = 23.0 % 40.0-50.0 L 411) POCT-GLUCOSE [id number] 06:42:00 Test Item Value Reference Range Interpretation Comments POC-GLUCOSE METER 104 mg/dL 70-110 : TESTED A T [facility] 6720 (BEAKER) (test code = [facility], 1538) 0[address]: Art Class Model/Techni jessica ID = [id number] for ME NDIN, KERBEH POCT-GLUCOSE [id number] 06:37:00 Test Item Value Reference Range Interpretation Comments POC-GLUCOSE METER 111 mg/dL 70-110 H : TESTED A T [facility] 6720 (BEAKER) (test code = [place], 1538) [address]: Art Class Model/Techni jessica ID = [id number] for ERENDIRA PLATT BASIC METABOLIC [id number] 05:31:00 Test Item Value Reference Range Interpretation Comments SODIUM (BEAKER) 138 meq/L 136-145 (test code = 381) POTASSIUM (BEAKER) 3.6 meq/L 3.5-5.1 (test code = 379) CHLORIDE (BEAKER) 105 meq/L 98-107 (test code = 382) CO2 (BEAKER) (test 20 meq/L 22-29 L code = 355) BLOOD UREA NITROGEN 34 mg/dL 7-21 H (BEAKER) (test code = 354) CREATININE (BEAKER) 2.74 mg/dL 0.57-1.25 H (test code = 358) GLUCOSE RANDOM 109 mg/dL 70-105 H (BEAKER) (test code = 652) CALCIUM (BEAKER) 8.7 mg/dL 8.4-10.2 (test code = 697) EGFR (BEAKER) (test 22 mL/min/1.73 ESTIMA MAI GFR IS code = 1092) sq m NOT ACCURATE CREATININE CLEARANCE IN PREDICTING GLOMERULAR FILTRATION RATE . ESTIMATED GFR I S NOT APPLICABLE FOR DIALYSIS PATIEN TS. Art Class Model ID - PIAYA LCBC (HEMOGRAM ONLY)2020-01-27 05:31:00 Test Item Value Reference Range Interpretation Comments WHITE BLOOD CELL COUNT (BEAKER) 8.4 K/ L 3.5-10.5 (test code = 775) RED BLOOD CELL COUNT (BEAKER) 2.34 M/ L 4.63-6.08 L (test code = 761) HEMOGLOBIN (BEAKER) (test code = 7.4 GM/DL 13.7-17.5 L 410) HEMATOCRIT (BEAKER) (test code = 23.0 % 40.1-51.0 L 411) MEAN CORPUSCULAR VOLUME (BEAKER) 98.3 fL 79.0-92.2 H (test code = 753) MEAN CORPUSCULAR HEMOGLOBIN 31.6 pg 25.7-32.2 (BEAKER) (test code = 751) MEAN CORPUSCULAR HEMOGLOBIN CONC 32.2 GM/DL 32.3-36.5 L (BEAKER) (test code = 752) RED CELL DISTRIBUTION WIDTH 15.5 % 11.6-14.4 H (BEAKER) (test code = 412) PLATELET COUNT (BEAKER) (test code 92 K/CU MM 150-450 L = 756) MEAN PLATELET VOLUME (BEAKER) 10.9 fL 9.4-12.4 (test code = 754) NUCLEATED RED BLOOD CELLS (BEAKER) 0 /100 WBC 0-0 (test code = 413) [id number] 05:19:00 Test Item Value Reference Range Interpretation Comments PHOSPHORUS (BEAKER) (test code = 4.5 mg/dL 2.3-4.7 604) Art Class Model ID - DANIEL [id number] 05:19:00 Test Item Value Reference Range Interpretation Comments MAGNESIUM (BEAKER) (test code = 2.3 mg/dL 1.6-2.6 627) Art Class Model ID - DANIEL LHEPATIC FUNCTION [id number] 05:19:00 Test Item Value Reference Range Interpretation Comments TOTAL PROTEIN (BEAKER) (test code = 5.5 gm/dL 6.0-8.3 L 770) ALBUMIN (BEAKER) (test code = 1145) 3.0 g/dL 3.5-5.0 L BILIRUBIN TOTAL (BEAKER) (test code 2.0 mg/dL 0.2-1.2 H = 377) BILIRUBIN DIRECT (BEAKER) (test 1.3 mg/dL 0.1-0.5 H code = 706) ALKALINE PHOSPHATASE (BEAKER) (test 136 U/L 40-150 code = 346) AST (SGOT) (BEAKER) (test code = 65 U/L 5-34 H 353) ALT (SGPT) (BEAKER) (test code = 36 U/L 6-55 347) Art Class Model ID - DANIEL LLACTIC ACID, [id number] 05:11:00 Test Item Value Reference Range Interpretation Comments LACTATE BLOOD ARTERIAL (2) 1.0 mmol/L 0.5-2.2 (BEAKER) (test code = 2874) Art Class Model ID Jama CARRERA MCALCIUM, [id number] 03:54:00 Test Item Value Reference Range Interpretation Comments CALCIUM IONIZED (BEAKER) (test 1.13 mmol/L 1.12-1.27 code = 698) PH, BLOOD (BEAKER) (test code = 7.40 1810) OXYGEN SATURATION, [id number] 03:52:00 Test Item Value Reference Range Interpretation Comments O2 SATURATION (MEASURED) (BEAKER) 88.7 % (test code = 1455) POCT-GLUCOSE [id number] 03:39:00 Test Item Value Reference Range Interpretation Comments POC-GLUCOSE METER 109 mg/dL 70-110 : TESTED A T [facility] 6720 (BEAKER) (test code = ARIS Chaney [facility], 1538) [address]: Art Class Model/Techni jessica ID = [id number] for DO LITACHERYL JIMENEZ RAD, CHEST, 1 VIEW, NON [id number] 02:37:00Reason for exam:->evaluate resp statusShould this be performed at the bedside?->YesFINAL REPORT RAD, CHEST, 1 VIEW, NON DEPT INDICATION: evaluate resp status COM PARISON: Prior day's exam FINDINGS: Portable frontal view of the chest. IMPRESSION: Support Lines: Placement of a right chest wall pacer device with leads overlying the right atrium and right ventricle. Otherwise unchanged support apparatus. Lungs and pleura: Interval increase in left retrocardiac a irspace opacity favored represent partial left lower lobe collapse. Unchanged right greater than left pleural effusions. No pneumothorax.Heart and mediastinum: Stable contours. Stable surgical changes.Additional findings: None. Signed: Amy Whitmore Verified Date/Time: 01/27/2020 02:37:36 C METABOLIC [id number] 00:05:00 Test Item Value Reference Range Interpretation Comments SODIUM (BEAKER) 136 meq/L 136-145 (test code = 381) POTASSIUM (BEAKER) 3.7 meq/L 3.5-5.1 (test code = 379) CHLORIDE (BEAKER) 103 meq/L 98-107 (test code = 382) CO2 (BEAKER) (test 20 meq/L 22-29 L code = 355) BLOOD UREA NITROGEN 36 mg/dL 7-21 H (BEAKER) (test code = 354) CREATININE (BEAKER) 2.95 mg/dL 0.57-1.25 H (test code = 358) GLUCOSE RANDOM 113 mg/dL 70-105 H (BEAKER) (test code = 652) CALCIUM (BEAKER) 8.3 mg/dL 8.4-10.2 L (test code = 697) EGFR (BEAKER) (test 20 mL/min/1.73 ESTIMA MAI GFR IS code = 1092) sq m NOT ACCURATE CREATININE CLEARANCE IN PREDICTING GLOMERULAR FILTRATION RATE . ESTIMATED GFR I S NOT APPLICABLE FOR DIALYSIS PATIEN TS. Art Class Model ID - DANIEL [id number] 23:49:00 Test Item Value Reference Range Interpretation Comments PHOSPHORUS (BEAKER) (test code = 4.8 mg/dL 2.3-4.7 H 604) Art Class Model ID - DANIEL [id number] 23:49:00 Test Item Value Reference Range Interpretation Comments MAGNESIUM (BEAKER) (test code = 2.3 mg/dL 1.6-2.6 627) Art Class Model ID - DANIEL LPOCT-GLUCOSE [id number] 23:10:00 Test Item Value Reference Range Interpretation Comments POC-GLUCOSE METER 118 mg/dL 70-110 H : TESTED A T [facility] 6720 (BEAKER) (test code = [facility] [employer] [facility], 153) [address]: Art Class Model/Techni jessica ID = [id number] for IN ERENDIRA CANTU CALCIUM, [id number] 23:08:00 Test Item Value Reference Range Interpretation Comments CALCIUM IONIZED (BEAKER) (test 1.09 mmol/L 1.12-1.27 L code = 698) PH, BLOOD (BEAKER) (test code = 7.38 1810) PH, [id number] 22:59:00 Test Item Value Reference Range Interpretation Comments PH ARTERIAL (BEAKER) (test code = 383) 7.38 7.35-7.45 POCT-GLUCOSE [id number] 21:13:00 Test Item Value Reference Range Interpretation Comments POC-GLUCOSE METER 108 mg/dL 70-110 : TESTED A T [facility] 6720 (BEAKER) (test code = [facility] [employer] [facility], 153) 9[address]: Art Class Model/Techni jessica ID = [id number] for CHERYL FRAGA POCT-GLUCOSE [id number] 19:03:00 Test Item Value Reference Range Interpretation Comments POC-GLUCOSE METER 114 mg/dL 70-110 H : TESTED A T [facility] 6720 (BEAKER) (test code = ARIS Chaney [facility], 1538) 64715: Art Class Model/Techni jessica ID = [id number] for ALESHA KENYON POCT-GLUCOSE [id number] 17:45:00 Test Item Value Reference Range Interpretation Comments POC-GLUCOSE METER 115 mg/dL 70-110 H : TESTED A T [facility] 6720 (BEAKER) (test code = [facility], 1538) 81671: Art Class Model/Techni jessica ID = [id number] for ANNABELLE SAUNDERS Glucose-Stat [id number] 17:00:00 Test Item Value Reference Range Interpretation Comments Glucose (test code = 2345-7) 109 mg/dL 70-110 Lab Interpretation (test code = Normal 66042-0) [facility] [id number] 17:00:00 Test Item Value Reference Range Interpretation Comments Sodium (test code = 2951-2) 133 meq/L 136-145 L Lab Interpretation (test code = Abnormal 60161-5) [facility] [id number] 17:00:00 Test Item Value Reference Range Interpretation Comments Potassium (test code = 2823-3) 3.7 meq/L 3.6-5.5 Lab Interpretation (test code = Normal 35299-0) [facility] CenterGLU[facility]SE-STAT [id number] 17:00:00 Test Item Value Reference Range Interpretation Comments GLUCOSE RANDOM (BEAKER) (test code 109 mg/dL 70-110 = 652) POTASSIUM-STAT [id number] 17:00:00 Test Item Value Reference Range Interpretation Comments POTASSIUM (BEAKER) (test code = 3.7 meq/L 3.6-5.5 379) BLOOD GAS, [id number] 17:00:00 Test Item Value Reference Range Interpretation Comments PH ARTERIAL (BEAKER) (test code = 7.39 7.35-7.45 383) PCO2 ARTERIAL (BEAKER) (test code 32 mmHg 35-45 L = 384) PO2 ARTERIAL (BEAKER) (test code 239 mmHg 80-90 H = 385) O2 SATURATION ARTERIAL (BEAKER) 99.5 % 96.0-97.0 H (test code = 386) HCO3 ARTERIAL (BEAKER) (test code 20 mmol/L 21-29 L = 388) BASE EXCESS ARTERIAL (BEAKER) -4.9 mmol/L -2.0-3.0 L (test code = 387) PATIENT TEMPERATURE (BEAKER) 36.4 C (test code = 1818) FIO2 (BEAKER) (test code = 1819) 36.0 % SODIUM NA-STAT [id number] 17:00:00 Test Item Value Reference Range Interpretation Comments SODIUM (BEAKER) (test code = 381) 133 meq/L 136-145 L HGB/HCT (H&H) - STAT [id number] 17:00:00 Test Item Value Reference Range Interpretation Comments HEMOGLOBIN (BEAKER) (test code = 9.1 g/dL 13.0-16.8 L 410) HEMATOCRIT (BEAKER) (test code = 27.0 % 40.0-50.0 L 411) POCT-GLUCOSE [id number] 16:52:00 Test Item Value Reference Range Interpretation Comments POC-GLUCOSE METER 94 mg/dL 70-110 : TESTED A T [facility] 6720 (BEAKER) (test code = [facility], 153) 84795: Art Class Model/Techni jessica ID = [id number] for CISN EROS, KAYLAH POCT-GLUCOSE [id number] 15:18:00 Test Item Value Reference Range Interpretation Comments POC-GLUCOSE METER 104 mg/dL 70-110 : TESTED A T [facility] 6720 (BEAKER) (test code = [facility], 153) 78622: Art Class Model/Techni jessica ID = [id number] for MINA-BECOAT, KATALINA POCT-GLUCOSE [id number] 14:16:00 Test Item Value Reference Range Interpretation Comments POC-GLUCOSE METER 101 mg/dL 70-110 : TESTED A T [facility] 6720 (BEAKER) (test code = [facility], 153) 16163: Art Class Model/Techni jessica ID = [id number] for GARCIA WK, NAYELI POCT-GLUCOSE [id number] 13:28:00 Test Item Value Reference Range Interpretation Comments POC-GLUCOSE METER 103 mg/dL 70-110 : TESTED A T [facility] 6720 (BEAKER) (test code = [facility], 1538) 65073: Art Class Model/Techni jessica ID = [id number] for GARCIA WK, NAYELI POCT-GLUCOSE [id number] 12:42:00 Test Item Value Reference Range Interpretation Comments POC-GLUCOSE METER 101 mg/dL 70-110 : TESTED A T [facility] 6720 (BEAKER) (test code = [facility], 1538) 18545: Art Class Model/Techni jessica ID = [id number] for GARCIA WK, NAYELI POCT-GLUCOSE [id number] 12:01:00 Test Item Value Reference Range Interpretation Comments POC-GLUCOSE METER 99 mg/dL 70-110 : TESTED A T [facility] 6720 (BEAKER) (test code = [facility], 1538) 66565: Art Class Model/Techni jessica ID = [id number] for HAWK , NAYELI POCT-GLUCOSE [id number] 11:43:00 Test Item Value Reference Range Interpretation Comments POC-GLUCOSE METER 101 mg/dL 70-110 : TESTED A T [facility] 6720 (BEAKER) (test code = [facility], 1538) 85511: Art Class Model/Techni jessica ID = [id number] for GARCIA WK, NAYELI BASIC METABOLIC [id number] 11:42:00 Test Item Value Reference Range Interpretation Comments SODIUM (BEAKER) 135 meq/L 136-145 L (test code = 381) POTASSIUM (BEAKER) 4.0 meq/L 3.5-5.1 (test code = 379) CHLORIDE (BEAKER) 104 meq/L 98-107 (test code = 382) CO2 (BEAKER) (test 19 meq/L 22-29 L code = 355) BLOOD UREA NITROGEN 29 mg/dL 7-21 H (BEAKER) (test code = 354) CREATININE (BEAKER) 2.52 mg/dL 0.57-1.25 H (test code = 358) GLUCOSE RANDOM 102 mg/dL 70-105 (BEAKER) (test code = 652) CALCIUM (BEAKER) 8.6 mg/dL 8.4-10.2 (test code = 697) EGFR (BEAKER) (test 25 mL/min/1.73 ESTIMA MAI GFR IS code = 1092) sq m NOT ACCURATE CREATININE CLEARANCE IN PREDICTING GLOMERULAR FILTRATION RATE . ESTIMATED GFR I S NOT APPLICABLE FOR DIALYSIS PATIEN TS. Art Class Model ID - [id number] 11:40:00 Test Item Value Reference Range Interpretation Comments PHOSPHORUS (BEAKER) (test code = 4.3 mg/dL 2.3-4.7 604) Art Class Model ID - [id number] 11:40:00 Test Item Value Reference Range Interpretation Comments MAGNESIUM (BEAKER) (test code = 2.2 mg/dL 1.6-2.6 627) Art Class Model ID - NTPRAD, CHEST, 1 VIEW, NON [id number] 11:33:00Reason for exam:->evaluate resp statusShould this be performed at the bedside?->Yes FINAL REPORT CLINICAL HISTORY: evaluate resp status TECHNIQUE: 1 view of thechest. COMPARISON: 01/25/2020 IMPRESSION: The [place] catheter has been removed. There is a left jugular line with its tip at the midline superior mediastinum. The tip of the IABP marker projects approximately 4 cm below the aortic knob apex. The chest tubes have been removed. There is no pneumothorax. Right asymmetric airspace opacities and small pleural effusions are similar appearing. The cardiomediastinal silhouette is magnified by technique with sternotomy wires. Signed: Adelfo Raygoza MDReport Verified Date/Time: 01/26/2020 11:33:43 Reading Location: [facility] Radiology Reading Room CALCIUM, [id number] 11:18:00 Test Item Value Reference Range Interpretation Comments CALCIUM IONIZED (BEAKER) (test 1.12 mmol/L 1.12-1.27 code = 698) PH, BLOOD (BEAKER) (test code = 7.39 1810) POCT-GLUCOSE [id number] 11:11:00 Test Item Value Reference Range Interpretation Comments POC-GLUCOSE METER 98 mg/dL 70-110 : TESTED A T [facility] 6720 (BEAKER) (test code = [facility], 1538) 00967: Art Class Model/Techni jessica ID = [id number] for HAWK , NAYELI POCT-GLUCOSE [id number] 10:53:00 Test Item Value Reference Range Interpretation Comments POC-GLUCOSE METER 99 mg/dL 70-110 : TESTED A T [facility] 6720 (BEAKER) (test code = [facility], 1538) 72304: Art Class Model/Techni jessica ID = [id number] for HAWK , NAYELI POCT-GLUCOSE [id number] 10:12:00 Test Item Value Reference Range Interpretation Comments POC-GLUCOSE METER 94 mg/dL 70-110 : TESTED A T [facility] 6720 (BEAKER) (test code = [facility], 1538) 21433: Art Class Model/Techni jessica ID = [id number] for HAWK , NAYELI POCT-GLUCOSE [id number] 09:25:00 Test Item Value Reference Range Interpretation Comments POC-GLUCOSE METER 102 mg/dL 70-110 : TESTED A T [facility] 6720 (BEAKER) (test code = [facility], [facility]8) 66144: Art Class Model/Techni jessica ID = [id number] for GARCIA WK, NAYELI POCT-GLUCOSE [id number] 08:32:00 Test Item Value Reference Range Interpretation Comments POC-GLUCOSE METER 113 mg/dL 70-110 H : TESTED A T [facility] 6720 (BEAKER) (test code = [facility], 1538) 10310: Art Class Model/Techni jessica ID = [id number] for GARCIA WK, NAYELI [id number] 07:42:00 Test Item Value Reference Range Interpretation Comments POTASSIUM (BEAKER) (test code = 4.0 meq/L 3.5-5.1 379) Art Class Model ID - NTPPOCT-GLUCOSE [id number] 07:35:00 Test Item Value Reference Range Interpretation Comments POC-GLUCOSE METER 108 mg/dL 70-110 : TESTED A T [facility] 6720 (BEAKER) (test code = [facility], [facility]8) 51835: Art Class Model/Techni jessica ID = [id number] for GARCAI WK, NAYELI PH, [id number] 07:33:00 Test Item Value Reference Range Interpretation Comments PH ARTERIAL (BEAKER) (test code = 383) 7.36 7.35-7.45 POCT-GLUCOSE [id number] 06:45:00 Test Item Value Reference Range Interpretation Comments POC-GLUCOSE METER 129 mg/dL 70-110 H : TESTED A T [facility] 6720 (BEAKER) (test code = [facility], 1538) 85903: Art Class Model/Techni jessica ID = [id number] for ERENDIRA PLATT POCT-GLUCOSE [id number] 05:54:00 Test Item Value Reference Range Interpretation Comments POC-GLUCOSE METER 107 mg/dL 70-110 : TESTED A T [facility] 6720 (BEAKER) (test code = [facility], 1538) 84998: Art Class Model/Techni jessica ID = [id number] for CHERYL FRAGA CALCIUM, [id number] 05:09:00 Test Item Value Reference Range Interpretation Comments CALCIUM IONIZED (BEAKER) (test 1.09 mmol/L 1.12-1.27 L code = 698) PH, BLOOD (BEAKER) (test code = 7.36 1810) POCT-GLUCOSE [id number] 04:03:00 Test Item Value Reference Range Interpretation Comments POC-GLUCOSE METER 108 mg/dL 70-110 : TESTED A T [facility] 6720 (BEAKER) (test code = [facility], 1538) 89094: Art Class Model/Techni jessica ID = [id number] for ERENDIRA PLATT PROTHROMBIN TIME/[id number] 03:39:00 Test Item Value Reference Range Interpretation Comments PROTIME (BEAKER) (test code = 16.2 seconds 11.9-14.2 H 759) INR (BEAKER) (test code = 370) 1.3 <=5.9 Effective 02/08/2019: PT Reference Range ChangeNew: 11.9-14.2 Previous: 11.7- 14.7RECOMMENDED COUMADIN/WARFARIN INR THERAPY RANGESSTANDARD DOSE: 2.0-3.0 Includes: PROPHYLAXIS for venous thrombosis, systemic embolization; TREATMENT for venous thrombosis and/or pulmonary embolus.HIGH RISK: Target INR is2.5-3.5 for patients wiht mechanical heart valves.BASIC METABOLIC [id number] 03:00:00 Test Item Value Reference Range Interpretation Comments SODIUM (BEAKER) 139 meq/L 136-145 (test code = 381) POTASSIUM (BEAKER) 4.1 meq/L 3.5-5.1 (test code = 379) CHLORIDE (BEAKER) 105 meq/L 98-107 (test code = 382) CO2 (BEAKER) (test 21 meq/L 22-29 L code = 355) BLOOD UREA NITROGEN 32 mg/dL 7-21 H (BEAKER) (test code = 354) CREATININE (BEAKER) 2.94 mg/dL 0.57-1.25 H (test code = 358) GLUCOSE RANDOM 111 mg/dL 70-105 H (BEAKER) (test code = 652) CALCIUM (BEAKER) 9.3 mg/dL 8.4-10.2 (test code = 697) EGFR (BEAKER) (test 21 mL/min/1.73 ESTIMA MAI GFR IS code = 1092) sq m NOT ACCURATE CREATININE CLEARANCE IN PREDICTING GLOMERULAR FILTRATION RATE . ESTIMATED GFR I S NOT APPLICABLE FOR DIALYSIS PATIEN TS. Art Class Model ID Jama PEREZ [id number] 02:58:00 Test Item Value Reference Range Interpretation Comments PHOSPHORUS (BEAKER) (test code = 4.5 mg/dL 2.3-4.7 604) Art Class Model ID - ANA [id number] 02:58:00 Test Item Value Reference Range Interpretation Comments MAGNESIUM (BEAKER) (test code = 2.3 mg/dL 1.6-2.6 627) Art Class Model ID - ANA WHEPATIC FUNCTION [id number] 02:58:00 Test Item Value Reference Range Interpretation Comments TOTAL PROTEIN (BEAKER) (test code = 5.8 gm/dL 6.0-8.3 L 770) ALBUMIN (BEAKER) (test code = 1145) 3.1 g/dL 3.5-5.0 L BILIRUBIN TOTAL (BEAKER) (test code 1.9 mg/dL 0.2-1.2 H = 377) BILIRUBIN DIRECT (BEAKER) (test 1.2 mg/dL 0.1-0.5 H code = 706) ALKALINE PHOSPHATASE (BEAKER) (test 145 U/L 40-150 code = 346) AST (SGOT) (BEAKER) (test code = 66 U/L 5-34 H 353) ALT (SGPT) (BEAKER) (test code = 34 U/L 6-55 347) Art Class Model ID Jama PEREZ WVancomycin level, [id number] 02:56:00 Test Item Value Reference Range Interpretation Comments Vancomycin Rm (test 15.7 ug/mL code = 44088-3) JARRED (test code = Reference Range: No JARRED) NormalsOperator ID - ANA [facility], [id number] 02:56:00 Test Item Value Reference Range Interpretation Comments VANCOMYCIN RANDOM (BEAKER) (test 15.7 ug/mL code = 523) Reference Range: No NormalsOperator ID - ANA WLACTIC ACID, [id number] 02:33:00 Test Item Value Reference Range Interpretation Comments LACTATE BLOOD ARTERIAL (2) 1.7 mmol/L 0.5-2.2 (BEAKER) (test code = 2874) Art Class Model ID Jama PEREZ WCBC (HEMOGRAM ONLY)[id number] 02:25:00 Test Item Value Reference Range Interpretation Comments WHITE BLOOD CELL COUNT (BEAKER) 11.0 K/ L 3.5-10.5 H (test code = 775) RED BLOOD CELL COUNT (BEAKER) 2.51 M/ L 4.63-6.08 L (test code = 761) HEMOGLOBIN (BEAKER) (test code = 8.3 GM/DL 13.7-17.5 L 410) HEMATOCRIT (BEAKER) (test code = 24.7 % 40.1-51.0 L 411) MEAN CORPUSCULAR VOLUME (BEAKER) 98.4 fL 79.0-92.2 H (test code = 753) MEAN CORPUSCULAR HEMOGLOBIN 33.1 pg 25.7-32.2 H (BEAKER) (test code = 751) MEAN CORPUSCULAR HEMOGLOBIN CONC 33.6 GM/DL 32.3-36.5 (BEAKER) (test code = 752) RED CELL DISTRIBUTION WIDTH 15.5 % 11.6-14.4 H (BEAKER) (test code = 412) PLATELET COUNT (BEAKER) (test 114 K/CU MM 150-450 L code = 756) MEAN PLATELET VOLUME (BEAKER) 11.1 fL 9.4-12.4 (test code = 754) NUCLEATED RED BLOOD CELLS 0 /100 WBC 0-0 (BEAKER) (test code = 413) BLOOD GAS, [id number] 02:16:00 Test Item Value Reference Range Interpretation Comments PH ARTERIAL (BEAKER) (test code = 7.43 7.35-7.45 383) PCO2 ARTERIAL (BEAKER) (test code 33 mmHg 35-45 L = 384) PO2 ARTERIAL (BEAKER) (test code 134 mmHg 80-90 H = 385) O2 SATURATION ARTERIAL (BEAKER) 98.8 % 96.0-97.0 H (test code = 386) HCO3 ARTERIAL (BEAKER) (test code 22 mmol/L 21-29 = 388) BASE EXCESS ARTERIAL (BEAKER) -2.3 mmol/L -2.0-3.0 L (test code = 387) PATIENT TEMPERATURE (BEAKER) 36.4 C (test code = 1818) FIO2 (BEAKER) (test code = 1819) 36.0 % OXYGEN SATURATION, [id number] 02:15:00 Test Item Value Reference Range Interpretation Comments O2 SATURATION (MEASURED) (BEAKER) 89.3 % (test code = 1455) POCT-GLUCOSE [id number] 01:48:00 Test Item Value Reference Range Interpretation Comments POC-GLUCOSE METER 117 mg/dL 70-110 H : TESTED A T [facility] 6720 (BEAKER) (test code = [facility], 1538) 07641: Art Class Model/Techni jessica ID = [id number] for DO BRITTNEY, CHERYL [id number] 00:54:00 Test Item Value Reference Range Interpretation Comments POTASSIUM (BEAKER) (test code = 4.1 meq/L 3.5-5.1 379) Art Class Model ID - PIAYA LPOCT-GLUCOSE [id number] 00:37:00 Test Item Value Reference Range Interpretation Comments POC-GLUCOSE METER 97 mg/dL 70-110 : TESTED A T [facility] 6720 (BEAKER) (test code = [facility], 1538) 39500: Art Class Model/Techni jessica ID = [id number] for MIKAEL BRIGGS, CHERLY CALCIUM, [id number] 23:34:00 Test Item Value Reference Range Interpretation Comments CALCIUM IONIZED (BEAKER) (test 1.13 mmol/L 1.12-1.27 code = 698) PH, BLOOD (BEAKER) (test code = 7.42 1810) PH, [id number] 23:34:00 Test Item Value Reference Range Interpretation Comments PH ARTERIAL (BEAKER) (test code = 383) 7.42 7.35-7.45 POCT-GLUCOSE [id number] 22:45:00 Test Item Value Reference Range Interpretation Comments POC-GLUCOSE METER 110 mg/dL 70-110 : TESTED A T [facility] 6720 (BEAKER) (test code = [facility] [place], 1538) 56921: Art Class Model/Techni jessica ID = [id number] for CHERYL FRAGA POCT-GLUCOSE [id number] 20:59:00 Test Item Value Reference Range Interpretation Comments POC-GLUCOSE METER 133 mg/dL 70-110 H : TESTED A T [facility] 6720 (BEAKER) (test code = [facility], 1538) 82857: Art Class Model/Techni jessica ID = [id number] for Yakelin PARMAR BASIC METABOLIC [id number] 20:09:00 Test Item Value Reference Range Interpretation Comments SODIUM (BEAKER) 136 meq/L 136-145 (test code = 381) POTASSIUM (BEAKER) 4.5 meq/L 3.5-5.1 (test code = 379) CHLORIDE (BEAKER) 104 meq/L 98-107 (test code = 382) CO2 (BEAKER) (test 21 meq/L 22-29 L code = 355) BLOOD UREA NITROGEN 32 mg/dL 7-21 H (BEAKER) (test code = 354) CREATININE (BEAKER) 3.21 mg/dL 0.57-1.25 H (test code = 358) GLUCOSE RANDOM 120 mg/dL 70-105 H (BEAKER) (test code = 652) CALCIUM (BEAKER) 8.9 mg/dL 8.4-10.2 (test code = 697) EGFR (BEAKER) (test 19 mL/min/1.73 ESTIMA MAI GFR IS code = 1092) sq m NOT ACCURATE CREATININE CLEARANCE IN PREDICTING GLOMERULAR FILTRATION RATE . ESTIMATED GFR I S NOT APPLICABLE FOR DIALYSIS PATIEN TS. Art Class Model ID - [id number] 20:08:00 Test Item Value Reference Range Interpretation Comments PHOSPHORUS (BEAKER) (test code = 4.7 mg/dL 2.3-4.7 604) Art Class Model ID - [id number] 20:08:00 Test Item Value Reference Range Interpretation Comments MAGNESIUM (BEAKER) (test code = 2.4 mg/dL 1.6-2.6 627) Art Class Model ID - NTPPOCT-GLUCOSE [id number] 18:39:00 Test Item Value Reference Range Interpretation Comments POC-GLUCOSE METER 110 mg/dL 70-110 : TESTED A T [facility] 6720 (BEAKER) (test code = [facility], 1538) 43498: Art Class Model/Techni jessica ID = [id number] for SCOTT TREVIÑO PH, [id number] 18:35:00 Test Item Value Reference Range Interpretation Comments PH ARTERIAL (BEAKER) (test code = 383) 7.43 7.35-7.45 POCT-GLUCOSE [id number] 16:30:00 Test Item Value Reference Range Interpretation Comments POC-GLUCOSE METER 99 mg/dL 70-110 : TESTED A T [facility] 6720 (BEAKER) (test code = [facility], 1538) 86644: Art Class Model/Techni jessica ID = [id number] for PEDRO LUIS MATA BASIC METABOLIC [id number] 13:14:00 Test Item Value Reference Range Interpretation Comments SODIUM (BEAKER) 139 meq/L 136-145 (test code = 381) POTASSIUM (BEAKER) 4.0 meq/L 3.5-5.1 (test code = 379) CHLORIDE (BEAKER) 105 meq/L 98-107 (test code = 382) CO2 (BEAKER) (test 24 meq/L 22-29 code = 355) BLOOD UREA NITROGEN 28 mg/dL 7-21 H (BEAKER) (test code = 354) CREATININE (BEAKER) 2.92 mg/dL 0.57-1.25 H (test code = 358) GLUCOSE RANDOM 123 mg/dL 70-105 H (BEAKER) (test code = 652) CALCIUM (BEAKER) 8.9 mg/dL 8.4-10.2 (test code = 697) EGFR (BEAKER) (test 21 mL/min/1.73 ESTIMA AMI GFR IS code = 1092) sq m NOT ACCURATE CREATININE CLEARANCE IN PREDICTING GLOMERULAR FILTRATION RATE . ESTIMATED GFR I S NOT APPLICABLE FOR DIALYSIS PATIEN TS. Art Class Model ID - [id number] 13:08:00 Test Item Value Reference Range Interpretation Comments PHOSPHORUS (BEAKER) (test code = 4.1 mg/dL 2.3-4.7 604) Art Class Model ID - [id number] 13:08:00 Test Item Value Reference Range Interpretation Comments MAGNESIUM (BEAKER) (test code = 2.4 mg/dL 1.6-2.6 627) Art Class Model ID - NTPSurgically obtained culture + gram [id number] 12:58:00 Test Item Value Reference Range Interpretation Comments Result (test code = 6463-4) No growth Gram Stain Result (test No organisms seen code = 1123) [facility] + GRAM [id number] 12:58:00 Test Item Value Reference Range Interpretation Comments CULTURE (BEAKER) (test No growth code = 1095) GRAM STAIN RESULT <1+ White blood cells (BEAKER) (test code = seen 1123) GRAM STAIN RESULT No organisms seen (BEAKER) (test code = 26459) CALCIUM, [id number] 12:51:00 Test Item Value Reference Range Interpretation Comments CALCIUM IONIZED (BEAKER) (test 1.12 mmol/L 1.12-1.27 code = 698) PH, BLOOD (BEAKER) (test code = 7.46 1810) POCT-GLUCOSE [id number] 12:45:00 Test Item Value Reference Range Interpretation Comments POC-GLUCOSE METER 125 mg/dL 70-110 H : TESTED A T [facility] 6720 (BEAKER) (test code = [facility] [employer] [facility], 153) 48686: Art Class Model/Techni jessica ID = [id number] for Tiffanie Manzo POCT-GLUCOSE [id number] 10:39:00 Test Item Value Reference Range Interpretation Comments POC-GLUCOSE METER 122 mg/dL 70-110 H : TESTED A T [facility] 6720 (BEAKER) (test code = [facility] [employer] [facility], 153) 05643: Art Class Model/Techni jessica ID = [id number] for PEDRO LUIS [place] [id number] 08:18:00 Test Item Value Reference Range Interpretation Comments POTASSIUM (BEAKER) 4.4 meq/L 3.5-5.1 Specimen slightly (test code = 379) hemolyzed Art Class Model ID - DEANDRE MLACTIC ACID, [id number] 08:18:00 Test Item Value Reference Range Interpretation Comments LACTATE BLOOD 1.9 mmol/L 0.5-2.2 Specimen sligh tly ARTERIAL (2) (BEAKER) hemoly zed (test code = 2874) Art Class Model ID - DEANDRE MPOCT-GLUCOSE [id number] 08:12:00 Test Item Value Reference Range Interpretation Comments POC-GLUCOSE METER 141 mg/dL 70-110 H : TESTED A T [facility] 6720 (BEAKER) (test code = [facility], 1538) 10747: Art Class Model/Techni jessica ID = [id number] for Tiffanie Manzo BLOOD GAS, [id number] 08:10:00 Test Item Value Reference Range Interpretation Comments PH ARTERIAL (BEAKER) (test code = 7.47 7.35-7.45 H 383) PCO2 ARTERIAL (BEAKER) (test code 33 mmHg 35-45 L = 384) PO2 ARTERIAL (BEAKER) (test code 206 mmHg 80-90 H = 385) O2 SATURATION ARTERIAL (BEAKER) 99.5 % 96.0-97.0 H (test code = 386) HCO3 ARTERIAL (BEAKER) (test code 23 mmol/L 21-29 = 388) BASE EXCESS ARTERIAL (BEAKER) -0.6 mmol/L -2.0-3.0 (test code = 387) PATIENT TEMPERATURE (BEAKER) 36.3 C (test code = 1818) FIO2 (BEAKER) (test code = 1819) 46.0 % PH, [id number] 08:10:00 Test Item Value Reference Range Interpretation Comments PH ARTERIAL (BEAKER) (test code = 383) 7.47 7.35-7.45 H POCT-GLUCOSE [id number] 06:30:00 Test Item Value Reference Range Interpretation Comments POC-GLUCOSE METER 127 mg/dL 70-110 H : TESTED A T [facility] 6720 (BEAKER) (test code [facility], = 1538) 69400: Art Class Model/Techni jessica ID = [id number] for Tevin Michaud [id number] 04:28:00 Test Item Value Reference Range Interpretation Comments Protime (test code = 17.7 11.9- 14.2 H 5902-2) seconds INR (test code = 1.5 <=5.9 6301-6) PTT (test code = 44.3 22.5- 36.0 H 11885-6) seconds JARRED (test code = JARRED) Effective 02/08/2019: PT Reference Range ChangeNew: 11.9-14.2 Previous: 11.7-14.7 RECOMMENDED COUMADIN/WARFARIN INR THERAPY RANGESSTANDARD DOSE: 2.0-3.0 Includes: PROPHYLAXIS for venous thrombosis, systemic embolization; TREATMENT for venous thrombosis and/or pulmonary embolus.HIGH RISK: Target INR is 2.5-3.5 for patients wiht mechanical heart valves. Lab Interpretation Abnormal (test code = 56978-0) [facility][id number] 04:28:00 Test Item Value Reference Range Interpretation Comments PROTIME (BEAKER) (test code = 17.7 seconds 11.9-14.2 H 759) INR (BEAKER) (test code = 370) 1.5 <=5.9 PARTIAL THROMBOPLASTIN TIME 44.3 seconds 22.5-36.0 H (BEAKER) (test code = 760) Effective 02/08/2019: PT Reference Range ChangeNew: 11.9-14.2 Previous: 11.7- 14.7RECOMMENDED COUMADIN/WARFARIN INR THERAPY RANGESSTANDARD DOSE: 2.0-3.0 Includes: PROPHYLAXIS for venous thrombosis, systemic embolization; TREATMENT for venous thrombosis and/or pulmonary embolus.HIGH RISK: Target INR is2.5-3.5 for patients wiht mechanical heart valves.BASIC METABOLIC [id number] 04:15:00 Test Item Value Reference Range Interpretation Comments SODIUM (BEAKER) 138 meq/L 136-145 (test code = 381) POTASSIUM (BEAKER) 4.3 meq/L 3.5-5.1 (test code = 379) CHLORIDE (BEAKER) 105 meq/L 98-107 (test code = 382) CO2 (BEAKER) (test 23 meq/L 22-29 code = 355) BLOOD UREA NITROGEN 33 mg/dL 7-21 H (BEAKER) (test code = 354) CREATININE (BEAKER) 3.35 mg/dL 0.57-1.25 H (test code = 358) GLUCOSE RANDOM 129 mg/dL 70-105 H (BEAKER) (test code = 652) CALCIUM (BEAKER) 9.0 mg/dL 8.4-10.2 (test code = 697) EGFR (BEAKER) (test 18 mL/min/1.73 ESTIMA MAI GFR IS code = 1092) sq m NOT ACCURATE CREATININE CLEARANCE IN PREDICTING GLOMERULAR FILTRATION RATE . ESTIMATED GFR I S NOT APPLICABLE FOR DIALYSIS PATIEN TS. Art Class Model ID - [id number] 04:14:00 Test Item Value Reference Range Interpretation Comments PHOSPHORUS (BEAKER) (test code = 4.7 mg/dL 2.3-4.7 604) Art Class Model ID - [id number] 04:14:00 Test Item Value Reference Range Interpretation Comments MAGNESIUM (BEAKER) (test code = 2.2 mg/dL 1.6-2.6 627) Art Class Model ID - LAHEPATIC FUNCTION [id number] 04:14:00 Test Item Value Reference Range Interpretation Comments TOTAL PROTEIN (BEAKER) (test code = 5.5 gm/dL 6.0-8.3 L 770) ALBUMIN (BEAKER) (test code = 1145) 3.1 g/dL 3.5-5.0 L BILIRUBIN TOTAL (BEAKER) (test code 1.7 mg/dL 0.2-1.2 H = 377) BILIRUBIN DIRECT (BEAKER) (test 1.1 mg/dL 0.1-0.5 H code = 706) ALKALINE PHOSPHATASE (BEAKER) (test 116 U/L 40-150 code = 346) AST (SGOT) (BEAKER) (test code = 70 U/L 5-34 H 353) ALT (SGPT) (BEAKER) (test code = 30 U/L 6-55 347) Art Class Model ID - LAPOCT-GLUCOSE [id number] 04:10:00 Test Item Value Reference Range Interpretation Comments POC-GLUCOSE METER 122 mg/dL 70-110 H : TESTED A T [facility] 6720 (BEAKER) (test code [facility] [place], = 1538) 68392: Art Class Model/Techni jessica ID = [id number] for Tevin Michaud BLOOD GAS, [id number] 04:09:00 Test Item Value Reference Range Interpretation Comments PH ARTERIAL (BEAKER) (test code = 7.45 7.35-7.45 383) PCO2 ARTERIAL (BEAKER) (test code 34 mmHg 35-45 L = 384) PO2 ARTERIAL (BEAKER) (test code 158 mmHg 80-90 H = 385) O2 SATURATION ARTERIAL (BEAKER) 99.1 % 96.0-97.0 H (test code = 386) HCO3 ARTERIAL (BEAKER) (test code 23 mmol/L 21-29 = 388) BASE EXCESS ARTERIAL (BEAKER) -0.9 mmol/L -2.0-3.0 (test code = 387) PATIENT TEMPERATURE (BEAKER) 36.6 C (test code = 1818) FIO2 (BEAKER) (test code = 1819) 36.0 % LACTIC ACID, [id number] 04:03:00 Test Item Value Reference Range Interpretation Comments LACTATE BLOOD ARTERIAL (2) 1.8 mmol/L 0.5-2.2 (BEAKER) (test code = 2874) Art Class Model ID - LAOXYGEN SATURATION, [id number] 04:00:00 Test Item Value Reference Range Interpretation Comments O2 SATURATION (MEASURED) (BEAKER) 63.6 % (test code = 1455) CALCIUM, [id number] 03:59:00 Test Item Value Reference Range Interpretation Comments CALCIUM IONIZED (BEAKER) (test 1.14 mmol/L 1.12-1.27 code = 698) PH, BLOOD (BEAKER) (test code = 7.44 1810) CBC (HEMOGRAM ONLY)2020-01-25 03:54:00 Test Item Value Reference Range Interpretation Comments WHITE BLOOD CELL COUNT (BEAKER) 11.5 K/ L 3.5-10.5 H (test code = 775) RED BLOOD CELL COUNT (BEAKER) 2.54 M/ L 4.63-6.08 L (test code = 761) HEMOGLOBIN (BEAKER) (test code = 8.1 GM/DL 13.7-17.5 L 410) HEMATOCRIT (BEAKER) (test code = 24.5 % 40.1-51.0 L 411) MEAN CORPUSCULAR VOLUME (BEAKER) 96.5 fL 79.0-92.2 H (test code = 753) MEAN CORPUSCULAR HEMOGLOBIN 31.9 pg 25.7-32.2 (BEAKER) (test code = 751) MEAN CORPUSCULAR HEMOGLOBIN CONC 33.1 GM/DL 32.3-36.5 (BEAKER) (test code = 752) RED CELL DISTRIBUTION WIDTH 15.6 % 11.6-14.4 H (BEAKER) (test code = 412) PLATELET COUNT (BEAKER) (test code 92 K/CU MM 150-450 L = 756) MEAN PLATELET VOLUME (BEAKER) 11.2 fL 9.4-12.4 (test code = 754) NUCLEATED RED BLOOD CELLS (BEAKER) 0 /100 WBC 0-0 (test code = 413) POCT-GLUCOSE [id number] 02:36:00 Test Item Value Reference Range Interpretation Comments POC-GLUCOSE METER 123 mg/dL 70-110 H : [facility] (test code [facility], = 1538) 87253: Art Class Model/Techni jessica ID = [id number] for Tevin Michaud LACTIC ACID, [id number] 01:01:00 Test Item Value Reference Range Interpretation Comments LACTATE BLOOD ARTERIAL (2) 2.1 mmol/L 0.5-2.2 (BEAKER) (test code = 2874) Art Class Model ID - BSBLOOD GAS, [id number] 00:57:00 Test Item Value Reference Range Interpretation Comments PH ARTERIAL (BEAKER) (test code = 7.48 7.35-7.45 H 383) PCO2 ARTERIAL (BEAKER) (test code 29 mmHg 35-45 L = 384) PO2 ARTERIAL (BEAKER) (test code 415 mmHg 80-90 H = 385) O2 SATURATION ARTERIAL (BEAKER) 99.9 % 96.0-97.0 H (test code = 386) HCO3 ARTERIAL (BEAKER) (test code 21 mmol/L 21-29 = 388) BASE EXCESS ARTERIAL (BEAKER) -1.5 mmol/L -2.0-3.0 (test code = 387) PATIENT TEMPERATURE (BEAKER) 36.7 C (test code = 1818) FIO2 (BEAKER) (test code = 1819) 100.0 % POCT-GLUCOSE [id number] 00:55:00 Test Item Value Reference Range Interpretation Comments POC-GLUCOSE METER 126 mg/dL 70-110 H : TESTED A T [facility] 6720 (BEAKER) (test code [facility], = 1538) [address]: Art Class Model/Techni jessica ID = [id number] for Tevin Michaud RAD, CHEST, 1 VIEW, NON [id number] 00:48:00Reason for exam:->iabpFINAL REPORT RAD, CHEST, 1 VIEW, NON DEPT INDICATION: iabp COMPARISON: Prior day's exam FINDINGS: Portable frontal view of the chest. IMPRESSION: Support Lines: Interval extubation and removal of the previously seen enteric tube. Intra-aortic balloon pump superior marker terminates 5.3 cm below the superior aspect of the aortic knob. Otherwise unchanged support apparatus. Lungs and pleura: Unchanged airspace and pleural opacities. No pneumothorax.Heart and mediastinum: Stable contours. Stable surgical changes.Additional findings: None. Signed: Amy Whitmore Verified Date/Time: 01/25/2020 00:48:35 Prepare [id number] 23:54:00 Test Item Value Reference Range Interpretation Comments CROSSMATCH (test code = 2264) COMPATIBLE Unit ABO (test code = O Pos 1643322) UNIT NUMBER (test code = [id number] 934-0) Status (test code = 3102968) TX_TIMEINCHART Blood Bank Product (test code RED BLOOD CELLS = 2263) PRODUCT CODE (test code = O2800P91 933-2) [facility] [id number] 23:54:00 Test Item Value Reference Range Interpretation Comments Unit ABO (test code = 4456992) A Neg UNIT NUMBER (test code = [id number] 934-0) Status (test code = 1679814) TX_TIMEINCHART Blood Bank Product (test code PLATELETS = 2263) PRODUCT CODE (test code = Q2637L97 933-2) [facility], [id number] 22:30:00 Test Item Value Reference Range Interpretation Comments PH ARTERIAL (BEAKER) (test code = 7.46 7.35-7.45 H 383) PCO2 ARTERIAL (BEAKER) (test code 31 mmHg 35-45 L = 384) PO2 ARTERIAL (BEAKER) (test code 160 mmHg 80-90 H = 385) O2 SATURATION ARTERIAL (BEAKER) 99.2 % 96.0-97.0 H (test code = 386) HCO3 ARTERIAL (BEAKER) (test code 21 mmol/L 21-29 = 388) BASE EXCESS ARTERIAL (BEAKER) -2.3 mmol/L -2.0-3.0 L (test code = 387) PATIENT TEMPERATURE (BEAKER) 37.0 C (test code = 1818) POCT-GLUCOSE [id number] 22:12:00 Test Item Value Reference Range Interpretation Comments POC-GLUCOSE METER 135 mg/dL 70-110 H : TESTED A T [facility] 6720 (BEAKER) (test code [facility], = 1538) 18072: Art Class Model/Techni jessica ID = [id number] for Tevin Michaud BASIC METABOLIC [id number] 21:18:00 Test Item Value Reference Range Interpretation Comments SODIUM (BEAKER) 138 meq/L 136-145 (test code = 381) POTASSIUM (BEAKER) 4.3 meq/L 3.5-5.1 Specimen slightly (test code = 379) hemolyzed CHLORIDE (BEAKER) 107 meq/L 98-107 (test code = 382) CO2 (BEAKER) (test 20 meq/L 22-29 L code = 355) BLOOD UREA NITROGEN 35 mg/dL 7-21 H (BEAKER) (test code = 354) CREATININE (BEAKER) 3.94 mg/dL 0.57-1.25 H Specimen slightly (test code = 358) hemolyzed GLUCOSE RANDOM 130 mg/dL 70-105 H (BEAKER) (test code = 652) CALCIUM (BEAKER) 8.2 mg/dL 8.4-10.2 L (test code = 697) EGFR (BEAKER) (test 15 mL/min/1.73 ESTIMA MAI GFR IS code = 1092) sq m NOT ACCURATE CREATININE CLEARANCE IN PREDICTING GLOMERULAR FILTRATION RATE . ESTIMATED GFR I S NOT APPLICABLE FOR DIALYSIS PATIEN TS. Art Class Model ID - [id number] 21:05:00 Test Item Value Reference Range Interpretation Comments MAGNESIUM (BEAKER) 2.3 mg/dL 1.6-2.6 Specimen slightly (test code = 627) hemolyzed Art Class Model ID - [id number] 21:05:00 Test Item Value Reference Range Interpretation Comments PHOSPHORUS (BEAKER) 4.8 mg/dL 2.3-4.7 H Specimen slightly (test code = 604) hemolyzed Art Class Model ID - BSLACTIC ACID, [id number] 20:56:00 Test Item Value Reference Range Interpretation Comments LACTATE BLOOD ARTERIAL (2) 1.7 mmol/L 0.5-2.2 (BEAKER) (test code = 2874) Art Class Model ID - BSCBC (HEMOGRAM ONLY)2020-01-24 20:51:00 Test Item Value Reference Range Interpretation Comments WHITE BLOOD CELL COUNT (BEAKER) 10.9 K/ L 3.5-10.5 H (test code = 775) RED BLOOD CELL COUNT (BEAKER) 2.42 M/ L 4.63-6.08 L (test code = 761) HEMOGLOBIN (BEAKER) (test code = 7.8 GM/DL 13.7-17.5 L 410) HEMATOCRIT (BEAKER) (test code = 22.9 % 40.1-51.0 L 411) MEAN CORPUSCULAR VOLUME (BEAKER) 94.6 fL 79.0-92.2 H (test code = 753) MEAN CORPUSCULAR HEMOGLOBIN 32.2 pg 25.7-32.2 (BEAKER) (test code = 751) MEAN CORPUSCULAR HEMOGLOBIN CONC 34.1 GM/DL 32.3-36.5 (BEAKER) (test code = 752) RED CELL DISTRIBUTION WIDTH 15.4 % 11.6-14.4 H (BEAKER) (test code = 412) PLATELET COUNT (BEAKER) (test code 97 K/CU MM 150-450 L = 756) MEAN PLATELET VOLUME (BEAKER) 11.4 fL 9.4-12.4 (test code = 754) NUCLEATED RED BLOOD CELLS (BEAKER) 0 /100 WBC 0-0 (test code = 413) POCT-GLUCOSE [id number] 20:49:00 Test Item Value Reference Range Interpretation Comments POC-GLUCOSE METER 129 mg/dL 70-110 H : TESTED A T [facility] 6720 (BEAKER) (test code [facility], = 1538) [address]: Art Class Model/Techni jessica ID = [id number] for Tevin Michaud BLOOD GAS, [id number] 20:48:00 Test Item Value Reference Range Interpretation Comments PH ARTERIAL (BEAKER) (test code = 7.46 7.35-7.45 H 383) PCO2 ARTERIAL (BEAKER) (test code 30 mmHg 35-45 L = 384) PO2 ARTERIAL (BEAKER) (test code 153 mmHg 80-90 H = 385) O2 SATURATION ARTERIAL (BEAKER) 99.1 % 96.0-97.0 H (test code = 386) HCO3 ARTERIAL (BEAKER) (test code 21 mmol/L 21-29 = 388) BASE EXCESS ARTERIAL (BEAKER) -2.5 mmol/L -2.0-3.0 L (test code = 387) PATIENT TEMPERATURE (BEAKER) 37.0 C (test code = 1818) CALCIUM, [id number] 20:48:00 Test Item Value Reference Range Interpretation Comments CALCIUM IONIZED (BEAKER) (test 1.09 mmol/L 1.12-1.27 L code = 698) PH, BLOOD (BEAKER) (test code = 7.46 1810) PH, [id number] 20:48:00 Test Item Value Reference Range Interpretation Comments PH ARTERIAL (BEAKER) (test code = 383) 7.46 7.35-7.45 H POCT-GLUCOSE [id number] 18:12:00 Test Item Value Reference Range Interpretation Comments POC-GLUCOSE METER 118 mg/dL 70-110 H : TESTED A T [facility] 6720 (BEAKER) (test code = ARIS Chaney [facility], 1538) [address]: Art Class Model/Techni jessica ID = [id number] for Tiffanie Manzo BLOOD GAS, [id number] 16:57:00 Test Item Value Reference Range Interpretation Comments PH ARTERIAL (BEAKER) (test code = 7.50 7.35-7.45 H 383) PCO2 ARTERIAL (BEAKER) (test code 29 mmHg 35-45 L = 384) PO2 ARTERIAL (BEAKER) (test code 183 mmHg 80-90 H = 385) O2 SATURATION ARTERIAL (BEAKER) 99.4 % 96.0-97.0 H (test code = 386) HCO3 ARTERIAL (BEAKER) (test code 22 mmol/L 21-29 = 388) BASE EXCESS ARTERIAL (BEAKER) -0.6 mmol/L -2.0-3.0 (test code = 387) PATIENT TEMPERATURE (BEAKER) 36.8 C (test code = 1818) FIO2 (BEAKER) (test code = 1819) 40.0 % PH, [id number] 16:57:00 Test Item Value Reference Range Interpretation Comments PH ARTERIAL (BEAKER) (test code = 383) 7.50 7.35-7.45 H LACTIC ACID, [id number] 16:43:00 Test Item Value Reference Range Interpretation Comments LACTATE BLOOD ARTERIAL (2) 1.5 mmol/L 0.5-2.2 (BEAKER) (test code = 2874) Art Class Model ID - [id number] 16:42:00 Test Item Value Reference Range Interpretation Comments POTASSIUM (BEAKER) (test code = 4.2 meq/L 3.5-5.1 379) Art Class Model ID - FSEPOCT-GLUCOSE [id number] 16:27:00 Test Item Value Reference Range Interpretation Comments POC-GLUCOSE METER 131 mg/dL 70-110 H : TESTED A T [facility] 6720 (BEAKER) (test code = [facility] [employer] [facility], 1537) [address]: Art Class Model/Techni jessica ID = [id number] for PEDRO LUIS [place] POCT-GLUCOSE [id number] 14:03:00 Test Item Value Reference Range Interpretation Comments POC-GLUCOSE METER 122 mg/dL 70-110 H : TESTED A T [facility] 6720 (BEAKER) (test code = [facility] [employer] [facility], 153) [address]: Art Class Model/Techni jessica ID = [id number] for Tiffanie Manzo POCT-GLUCOSE [id number] 13:11:00 Test Item Value Reference Range Interpretation Comments POC-GLUCOSE METER 113 mg/dL 70-110 H : TESTED A T [facility] 6720 (BEAKER) (test code = [facility] [employer] [facility], 153) 89233: Art Class Model/Techni jessica ID = [id number] for Tiffanie Manzo POCT-GLUCOSE [id number] 12:31:00 Test Item Value Reference Range Interpretation Comments POC-GLUCOSE METER 132 mg/dL 70-110 H : TESTED A T [facility] 6720 (BEAKER) (test code = [facility], 1538) [address]: Art Class Model/Techni jessica ID = [id number] for Tiffanie Manzo POCT-GLUCOSE [id number] 12:31:00 Test Item Value Reference Range Interpretation Comments POC-GLUCOSE METER 129 mg/dL 70-110 H : TESTED A T [facility] 6720 (BEAKER) (test code = [facility], 1538) [address]: Art Class Model/Techni jessica ID = [id number] for Tiffanie Manzo POCT-GLUCOSE [id number] 12:31:00 Test Item Value Reference Range Interpretation Comments POC-GLUCOSE METER 148 mg/dL 70-110 H : TESTED A T [facility] 6720 (BEAKER) (test code = [facility], 1538) [address]: Art Class Model/Techni jessica ID = [id number] for Tiffanie Manzo [id number] 12:19:00 Test Item Value Reference Range Interpretation Comments PHOSPHORUS (BEAKER) (test code = 4.3 mg/dL 2.3-4.7 604) Art Class Model ID Jama VICKRES [id number] 12:19:00 Test Item Value Reference Range Interpretation Comments MAGNESIUM (BEAKER) (test code = 2.1 mg/dL 1.6-2.6 627) Art Class Model ID Jama VICKERS FBASIC METABOLIC [id number] 12:19:00 Test Item Value Reference Range Interpretation Comments SODIUM (BEAKER) 137 meq/L 136-145 (test code = 381) POTASSIUM (BEAKER) 4.2 meq/L 3.5-5.1 (test code = 379) CHLORIDE (BEAKER) 105 meq/L 98-107 (test code = 382) CO2 (BEAKER) (test 21 meq/L 22-29 L code = 355) BLOOD UREA NITROGEN 36 mg/dL 7-21 H (BEAKER) (test code = 354) CREATININE (BEAKER) 4.26 mg/dL 0.57-1.25 H (test code = 358) GLUCOSE RANDOM 128 mg/dL 70-105 H (BEAKER) (test code = 652) CALCIUM (BEAKER) 8.6 mg/dL 8.4-10.2 (test code = 697) EGFR (BEAKER) (test 13 mL/min/1.73 ESTIMA MAI GFR IS code = 1092) sq m NOT ACCURATE CREATININE CLEARANCE IN PREDICTING GLOMERULAR FILTRATION RATE . ESTIMATED GFR I S NOT APPLICABLE FOR DIALYSIS PATIEN TS. Art Class Model ID Jama VICKERS FBLOOD GAS, [id number] 12:09:00 Test Item Value Reference Range Interpretation Comments PH ARTERIAL (BEAKER) (test code = 7.50 7.35-7.45 H 383) PCO2 ARTERIAL (BEAKER) (test code 29 mmHg 35-45 L = 384) PO2 ARTERIAL (BEAKER) (test code 155 mmHg 80-90 H = 385) O2 SATURATION ARTERIAL (BEAKER) 99.2 % 96.0-97.0 H (test code = 386) HCO3 ARTERIAL (BEAKER) (test code 22 mmol/L 21-29 = 388) BASE EXCESS ARTERIAL (BEAKER) -0.6 mmol/L -2.0-3.0 (test code = 387) PATIENT TEMPERATURE (BEAKER) 36.3 C (test code = 1818) FIO2 (BEAKER) (test code = 1819) 40.0 % CALCIUM, [id number] 12:09:00 Test Item Value Reference Range Interpretation Comments CALCIUM IONIZED (BEAKER) (test 1.09 mmol/L 1.12-1.27 L code = 698) PH, BLOOD (BEAKER) (test code = 7.49 1810) LACTIC ACID, [id number] 12:07:00 Test Item Value Reference Range Interpretation Comments LACTATE BLOOD ARTERIAL (2) 1.8 mmol/L 0.5-2.2 (BEAKER) (test code = 2874) Art Class Model ID - RANCHO FSPIN/CONCENTRATION [id number] 09:29:00 Test Item Value Reference Range Interpretation Comments Concentration charged (test code = Done 8897) [facility] [id number] 09:29:00 Test Item Value Reference Range Interpretation Comments CONCENTRATION CHARGED (BEAKER) (test Done code = 1087) LACTIC ACID, [id number] 08:37:00 Test Item Value Reference Range Interpretation Comments LACTATE BLOOD ARTERIAL (2) 2.0 mmol/L 0.5-2.2 (BEAKER) (test code = 2874) Art Class Model ID - RANCHO GUILLORY, [id number] 08:32:00 Test Item Value Reference Range Interpretation Comments PH ARTERIAL (BEAKER) (test code = 383) 7.50 7.35-7.45 H BLOOD GAS, [id number] 08:32:00 Test Item Value Reference Range Interpretation Comments PH ARTERIAL (BEAKER) (test code = 7.50 7.35-7.45 H 383) PCO2 ARTERIAL (BEAKER) (test code 29 mmHg 35-45 L = 384) PO2 ARTERIAL (BEAKER) (test code 164 mmHg 80-90 H = 385) O2 SATURATION ARTERIAL (BEAKER) 99.3 % 96.0-97.0 H (test code = 386) HCO3 ARTERIAL (BEAKER) (test code 22 mmol/L 21-29 = 388) BASE EXCESS ARTERIAL (BEAKER) -0.4 mmol/L -2.0-3.0 (test code = 387) PATIENT TEMPERATURE (BEAKER) 36.5 C (test code = 1818) FIO2 (BEAKER) (test code = 1819) 40.0 % POC ACTIVATED CLOTTING [id number] 07:23:00 Test Item Value Reference Range Interpretation Comments Activated Clotting Time 131 sec : 74 -137 seconds, (test code = 441) Baseline: TESTED AT [address], [facility] 30: Art Class Model/Techni jessica ID = [id number] for CAPRICE BHAGAT [id number] 07:23:00 Test Item Value Reference Range Interpretation Comments ACTIVATED CLOTTING TIME 131 sec : 74 -137 seconds, (BEAKER) (test code = Baseli ne: TESTED AT 441) [address], [facility] 30: Art Class Model/Techni jessica ID = [id number] for CAPRICE BHAGAT [id number] 07:23:00 Test Item Value Reference Range Interpretation Comments ACTIVATED CLOTTING TIME 521 sec : 74 -137 seconds, (BEAKER) (test code = Baseli ne: TESTED AT 441) [address], 770 30: Art Class Model/Techni jessica ID = [id number] for CAPRICE BHAGAT [id number] 07:23:00 Test Item Value Reference Range Interpretation Comments ACTIVATED CLOTTING TIME 417 sec : 74 -137 seconds, (BEAKER) (test code = Baseli ne: TESTED AT 441) [facility] 67[address] [facility], 770 30: Art Class Model/Techni jessica ID = [id number] for CAPRICE BHAGAT [id number] 07:22:00 Test Item Value Reference Range Interpretation Comments ACTIVATED CLOTTING TIME 455 sec : 74 -137 seconds, (BEAKER) (test code = Baseli ne: TESTED AT 441) [facility] 67[address] [facility], [facility] 30: Art Class Model/Techni jessica ID = [id number] for CAPRICE BHAGAT BASIC METABOLIC [id number] 07:12:00 Test Item Value Reference Range Interpretation Comments SODIUM (BEAKER) 138 meq/L 136-145 (test code = 381) POTASSIUM (BEAKER) 4.6 meq/L 3.5-5.1 (test code = 379) CHLORIDE (BEAKER) 105 meq/L 98-107 (test code = 382) CO2 (BEAKER) (test 20 meq/L 22-29 L code = 355) BLOOD UREA NITROGEN 47 mg/dL 7-21 H (BEAKER) (test code = 354) CREATININE (BEAKER) 5.07 mg/dL 0.57-1.25 H (test code = 358) GLUCOSE RANDOM 156 mg/dL 70-105 H (BEAKER) (test code = 652) CALCIUM (BEAKER) 8.2 mg/dL 8.4-10.2 L (test code = 697) EGFR (BEAKER) (test 11 mL/min/1.73 ESTIMA MAI GFR IS code = 1092) sq m NOT ACCURATE CREATININE CLEARANCE IN PREDICTING GLOMERULAR FILTRATION RATE . ESTIMATED GFR I S NOT APPLICABLE FOR DIALYSIS PATIEN TS. Art Class Model ID - PIAYA LHEPATIC FUNCTION [id number] 07:09:00 Test Item Value Reference Range Interpretation Comments TOTAL PROTEIN (BEAKER) (test code = 5.6 gm/dL 6.0-8.3 L 770) ALBUMIN (BEAKER) (test code = 1145) 3.3 g/dL 3.5-5.0 L BILIRUBIN TOTAL (BEAKER) (test code 1.4 mg/dL 0.2-1.2 H = 377) BILIRUBIN DIRECT (BEAKER) (test 1.0 mg/dL 0.1-0.5 H code = 706) ALKALINE PHOSPHATASE (BEAKER) (test 79 U/L 40-150 code = 346) AST (SGOT) (BEAKER) (test code = 77 U/L 5-34 H 353) ALT (SGPT) (BEAKER) (test code = 29 U/L 6-55 347) Art Class Model ID Jama SANCHEZ [id number] 04:54:00 Test Item Value Reference Range Interpretation Comments Calcium (test code = 8.5 mg/dL 8.4-10.2 40631-2) JARRED (test code = JARRED) Art Class Model ID Jama SANCHEZ L Lab Interpretation (test Normal code = 76474-3) [facility]2020-[facility] 04:54:00 Test Item Value Reference Range Interpretation Comments POTASSIUM (BEAKER) (test code = 4.6 meq/L 3.5-5.1 379) Art Class Model ID - DANIEL [id number] 04:54:00 Test Item Value Reference Range Interpretation Comments MAGNESIUM (BEAKER) (test code = 2.3 mg/dL 1.6-2.6 627) Art Class Model ID - DANIEL [id number] 04:54:00 Test Item Value Reference Range Interpretation Comments PHOSPHORUS (BEAKER) (test code = 5.5 mg/dL 2.3-4.7 H 604) Art Class Model ID - DANIEL [id number] 04:54:00 Test Item Value Reference Range Interpretation Comments CALCIUM (BEAKER) (test code = 697) 8.5 mg/dL 8.4-10.2 Art Class Model ID - DANIEL [id number] 04:15:00 Test Item Value Reference Range Interpretation Comments PROTIME (BEAKER) (test code = 17.6 seconds 11.9-14.2 H 759) INR (BEAKER) (test code = 370) 1.5 <=5.9 PARTIAL THROMBOPLASTIN TIME 40.3 seconds 22.5-36.0 H (BEAKER) (test code = 760) Effective 02/08/2019: PT Reference Range ChangeNew: 11.9-14.2 Previous: 11.7- 14.7RECOMMENDED COUMADIN/WARFARIN INR THERAPY RANGESSTANDARD DOSE: 2.0-3.0 Includes: PROPHYLAXIS for venous thrombosis, systemic embolization; TREATMENT for venous thrombosis and/or pulmonary embolus.HIGH RISK: Target INR is2.5-3.5 for patients wiht mechanical heart valves.CBC (HEMOGRAM ONLY)2020-01-24 04:12:00 Test Item Value Reference Range Interpretation Comments WHITE BLOOD CELL COUNT (BEAKER) 11.8 K/ L 3.5-10.5 H (test code = 775) RED BLOOD CELL COUNT (BEAKER) 2.74 M/ L 4.63-6.08 L (test code = 761) HEMOGLOBIN (BEAKER) (test code = 8.4 GM/DL 13.7-17.5 L 410) HEMATOCRIT (BEAKER) (test code = 25.9 % 40.1-51.0 L 411) MEAN CORPUSCULAR VOLUME (BEAKER) 94.5 fL 79.0-92.2 H (test code = 753) MEAN CORPUSCULAR HEMOGLOBIN 30.7 pg 25.7-32.2 (BEAKER) (test code = 751) MEAN CORPUSCULAR HEMOGLOBIN CONC 32.4 GM/DL 32.3-36.5 (BEAKER) (test code = 752) RED CELL DISTRIBUTION WIDTH 15.9 % 11.6-14.4 H (BEAKER) (test code = 412) PLATELET COUNT (BEAKER) (test 156 K/CU MM 150-450 code = 756) MEAN PLATELET VOLUME (BEAKER) 10.5 fL 9.4-12.4 (test code = 754) NUCLEATED RED BLOOD CELLS 0 /100 WBC 0-0 (BEAKER) (test code = 413) LACTIC ACID, [id number] 04:10:00 Test Item Value Reference Range Interpretation Comments LACTATE BLOOD ARTERIAL (2) 2.4 mmol/L 0.5-2.2 H (BEAKER) (test code = 2874) Art Class Model ID - PIAYA LOXYGEN SATURATION, [id number] 04:03:00 Test Item Value Reference Range Interpretation Comments O2 SATURATION (MEASURED) (BEAKER) 72.6 % (test code = 1455) CALCIUM, [id number] 03:57:00 Test Item Value Reference Range Interpretation Comments CALCIUM IONIZED (BEAKER) (test 1.07 mmol/L 1.12-1.27 L code = 698) PH, BLOOD (BEAKER) (test code = 7.41 1810) BLOOD GAS, [id number] 03:56:00 Test Item Value Reference Range Interpretation Comments PH ARTERIAL (BEAKER) (test code = 7.42 7.35-7.45 383) PCO2 ARTERIAL (BEAKER) (test code 35 mmHg 35-45 = 384) PO2 ARTERIAL (BEAKER) (test code 162 mmHg 80-90 H = 385) O2 SATURATION ARTERIAL (BEAKER) 99.1 % 96.0-97.0 H (test code = 386) HCO3 ARTERIAL (BEAKER) (test code 22 mmol/L 21-29 = 388) BASE EXCESS ARTERIAL (BEAKER) -2.2 mmol/L -2.0-3.0 L (test code = 387) PATIENT TEMPERATURE (BEAKER) 36.4 C (test code = 1818) FIO2 (BEAKER) (test code = 1819) 40.0 % RAD, CHEST, 1 VIEW, NON [id number] 03:25:00Reason for exam:->iabpFINAL REPORT RAD, CHEST, 1 VIEW, NON DEPT INDICATION: iabp COMPARISON: Exam from 12 hours prior FINDINGS: Portable frontal view of the chest. IMPRESSION: Support Lines: The intra-aortic balloon pump marker is 3.2 cm below the superior margin of the aortic arch. Other support apparatus is stable. Lungs and pleura: Unchanged right greater than left patchy airspace opacities and small bilateral pleural effusions. No pneumothorax.Heart and mediastinum: Stable contours. Stable surgical changes.Additional findings: None. Signed: Nic Camarillo MDReport Verified Date/Time: 01/24/2020 03:25:48 BASIC METABOLIC [id number] 00:17:00 Test Item Value Reference Range Interpretation Comments SODIUM (BEAKER) 139 meq/L 136-145 (test code = 381) POTASSIUM (BEAKER) 5.1 meq/L 3.5-5.1 Specimen slightly (test code = 379) hemolyzed CHLORIDE (BEAKER) 105 meq/L 98-107 (test code = 382) CO2 (BEAKER) (test 19 meq/L 22-29 L code = 355) BLOOD UREA NITROGEN 53 mg/dL 7-21 H (BEAKER) (test code = 354) CREATININE (BEAKER) 5.93 mg/dL 0.57-1.25 H Specimen slightly (test code = 358) hemolyzed GLUCOSE RANDOM 158 mg/dL 70-105 H (BEAKER) (test code = 652) CALCIUM (BEAKER) 8.2 mg/dL 8.4-10.2 L (test code = 697) EGFR (BEAKER) (test 9 mL/min/1.73 ESTIMAT ED GFR IS code = 1092) sq m NOT ACCURATE CREATININE CLEARANCE IN PREDICTING GLOMERULAR FILTRATION RATE . ESTIMATED GFR I S NOT APPLICABLE FOR DIALYSIS PATIEN TS. Art Class Model ID - PIAYA [id number] 00:14:00 Test Item Value Reference Range Interpretation Comments MAGNESIUM (BEAKER) 2.3 mg/dL 1.6-2.6 Specimen slightly (test code = 627) hemolyzed Art Class Model ID - PIFELI [id number] 00:14:00 Test Item Value Reference Range Interpretation Comments PHOSPHORUS (BEAKER) 5.6 mg/dL 2.3-4.7 H Specimen slightly (test code = 604) hemolyzed Art Class Model ID - PIFELI LLACTIC ACID, [id number] 00:10:00 Test Item Value Reference Range Interpretation Comments LACTATE BLOOD 2.5 mmol/L 0.5-2.2 H Specimen sligh tly ARTERIAL (2) (BEAKER) hemoly zed (test code = 2874) Art Class Model ID - PIFELI LBLOOD GAS, [id number] 23:55:00 Test Item Value Reference Range Interpretation Comments PH ARTERIAL (BEAKER) (test code = 7.42 7.35-7.45 383) PCO2 ARTERIAL (BEAKER) (test code 34 mmHg 35-45 L = 384) PO2 ARTERIAL (BEAKER) (test code 172 mmHg 80-90 H = 385) O2 SATURATION ARTERIAL (BEAKER) 99.2 % 96.0-97.0 H (test code = 386) HCO3 ARTERIAL (BEAKER) (test code 22 mmol/L = 388) BASE EXCESS ARTERIAL (BEAKER) -2.6 mmol/L -2.0-3.0 L (test code = 387) PATIENT TEMPERATURE (BEAKER) 36.1 C (test code = 1818) FIO2 (BEAKER) (test code = 1819) 40.0 % PH, [id number] 23:54:00 Test Item Value Reference Range Interpretation Comments PH ARTERIAL (BEAKER) (test code = 383) 7.42 7.35-7.45 POCT-GLUCOSE [id number] 23:52:00 Test Item Value Reference Range Interpretation Comments POC-GLUCOSE METER 146 mg/dL 70-110 H : TESTED A T [facility] 6720 (BEAKER) (test code = [place], 1538) [address]: Art Class Model/Techni jessica ID = [id number] for GERBER GARCIA HGB/HCT (H&H) - STAT [id number] 23:09:00 Test Item Value Reference Range Interpretation Comments HEMOGLOBIN (BEAKER) (test code = 8.5 GM/DL 13.0-16.8 L 410) HEMATOCRIT (BEAKER) (test code = 25.0 % 40.0-50.0 L 411) OXYGEN SATURATION, [id number] 23:02:00 Test Item Value Reference Range Interpretation Comments O2 SATURATION (MEASURED) (BEAKER) 76.9 % (test code = 1455) SARS-CoV2/RT-PCR (Asymptomatic ONLY)2020-01-23 23:00:00 Test Item Value Reference Range Interpretation Comments SARS-COV2/RT-PCR (test code = Negative Not Detected, Negative 13709-5) SARS-COV-2 PERFORMING LAB CPL (test code = 36641-8) [facility])2020-01-23 23:00:00 Test Item Value Reference Range Interpretation Comments SARS-COV2/RT-PCR (test code = Negative Not Detected, Negative [id number]) SARS-COV-2 PERFORMING LAB CPL (test code = 3002199) POCT-GLUCOSE [id number] 21:27:00 Test Item Value Reference Range Interpretation Comments POC-GLUCOSE METER 151 mg/dL 70-110 H : TESTED A T [facility] 6720 (BEAKER) (test code = [place], 1538) [address]: Art Class Model/Techni jessica ID = [id number] for GERBER GARCIA LACTIC ACID, [id number] 21:01:00 Test Item Value Reference Range Interpretation Comments LACTATE BLOOD 3.3 mmol/L 0.5-2.2 H Specimen sligh tly ARTERIAL (2) (BEAKER) hemoly zed (test code = 2874) Art Class Model ID - [id number] 21:01:00 Test Item Value Reference Range Interpretation Comments MAGNESIUM (BEAKER) 2.3 mg/dL 1.6-2.6 Specimen slightly (test code = 627) hemolyzed Art Class Model ID - BSCALCIUM, [id number] 20:57:00 Test Item Value Reference Range Interpretation Comments CALCIUM IONIZED (BEAKER) (test 1.04 mmol/L 1.12-1.27 L code = 698) PH, BLOOD (BEAKER) (test code = 7.42 1810) BLOOD GAS, [id number] 20:45:00 Test Item Value Reference Range Interpretation Comments PH ARTERIAL (BEAKER) (test code = 7.42 7.35-7.45 383) PCO2 ARTERIAL (BEAKER) (test code 32 mmHg 35-45 L = 384) PO2 ARTERIAL (BEAKER) (test code 141 mmHg 80-90 H = 385) O2 SATURATION ARTERIAL (BEAKER) 98.9 % 96.0-97.0 H (test code = 386) HCO3 ARTERIAL (BEAKER) (test code 21 mmol/L 21-29 = 388) BASE EXCESS ARTERIAL (BEAKER) -3.3 mmol/L -2.0-3.0 L (test code = 387) PATIENT TEMPERATURE (BEAKER) 37.0 C (test code = 1818) FIO2 (BEAKER) (test code = 1819) 40.0 % OXYGEN SATURATION, [id number] 20:43:00 Test Item Value Reference Range Interpretation Comments O2 SATURATION (MEASURED) (BEAKER) 69.5 % (test code = 1455) SODIUM NA-STAT [id number] 19:09:00 Test Item Value Reference Range Interpretation Comments SODIUM (BEAKER) (test code = 381) 135 meq/L 136-145 L POTASSIUM-STAT [id number] 19:09:00 Test Item Value Reference Range Interpretation Comments POTASSIUM (BEAKER) (test code = 4.5 meq/L 3.6-5.5 379) BLOOD GAS, [id number] 19:09:00 Test Item Value Reference Range Interpretation Comments PH ARTERIAL (BEAKER) (test code = 7.46 7.35-7.45 H 383) PCO2 ARTERIAL (BEAKER) (test code 28 mmHg 35-45 L = 384) PO2 ARTERIAL (BEAKER) (test code 165 mmHg 80-90 H = 385) O2 SATURATION ARTERIAL (BEAKER) 99.2 % 96.0-97.0 H (test code = 386) HCO3 ARTERIAL (BEAKER) (test code 20 mmol/L 21-29 L = 388) BASE EXCESS ARTERIAL (BEAKER) -3.2 mmol/L -2.0-3.0 L (test code = 387) PATIENT TEMPERATURE (BEAKER) 36.8 C (test code = 1818) FIO2 (BEAKER) (test code = 1819) 40.0 % GLUCOSE-STAT [id number] 19:09:00 Test Item Value Reference Range Interpretation Comments GLUCOSE RANDOM (BEAKER) (test code 159 mg/dL 70-110 H = 652) HGB/HCT (H&H) - STAT [id number] 19:09:00 Test Item Value Reference Range Interpretation Comments HEMOGLOBIN (BEAKER) (test code = 9.0 g/dL 13.0-16.8 L 410) HEMATOCRIT (BEAKER) (test code = 26.0 % 40.0-50.0 L 411) SODIUM NA-STAT [id number] 18:11:00 Test Item Value Reference Range Interpretation Comments SODIUM (BEAKER) (test code = 381) 136 meq/L 136-145 POTASSIUM-STAT [id number] 18:11:00 Test Item Value Reference Range Interpretation Comments POTASSIUM (BEAKER) (test code = 4.5 meq/L 3.6-5.5 379) BLOOD GAS, [id number] 18:11:00 Test Item Value Reference Range Interpretation Comments PH ARTERIAL (BEAKER) (test code = 7.46 7.35-7.45 H 383) PCO2 ARTERIAL (BEAKER) (test code 28 mmHg 35-45 L = 384) PO2 ARTERIAL (BEAKER) (test code 172 mmHg 80-90 H = 385) O2 SATURATION ARTERIAL (BEAKER) 99.3 % 96.0-97.0 H (test code = 386) HCO3 ARTERIAL (BEAKER) (test code 20 mmol/L 21-29 L = 388) BASE EXCESS ARTERIAL (BEAKER) -3.5 mmol/L -2.0-3.0 L (test code = 387) PATIENT TEMPERATURE (BEAKER) 36.5 C (test code = 1818) FIO2 (BEAKER) (test code = 1819) 40.0 % GLUCOSE-STAT [id number] 18:11:00 Test Item Value Reference Range Interpretation Comments GLUCOSE RANDOM (BEAKER) (test code 142 mg/dL 70-110 H = 652) HGB/HCT (H&H) - STAT [id number] 18:11:00 Test Item Value Reference Range Interpretation Comments HEMOGLOBIN (BEAKER) (test code = 8.9 g/dL 13.0-16.8 L 410) HEMATOCRIT (BEAKER) (test code = 26.0 % 40.0-50.0 L 411) BLOOD GAS, [id number] 17:14:00 Test Item Value Reference Range Interpretation Comments PH ARTERIAL (BEAKER) (test code = 7.47 7.35-7.45 H 383) PCO2 ARTERIAL (BEAKER) (test code 30 mmHg 35-45 L = 384) PO2 ARTERIAL (BEAKER) (test code 145 mmHg 80-90 H = 385) O2 SATURATION ARTERIAL (BEAKER) 99.1 % 96.0-97.0 H (test code = 386) HCO3 ARTERIAL (BEAKER) (test code 21 mmol/L 21-29 = 388) BASE EXCESS ARTERIAL (BEAKER) -2.3 mmol/L -2.0-3.0 L (test code = 387) PATIENT TEMPERATURE (BEAKER) 36.2 C (test code = 1818) FIO2 (BEAKER) (test code = 1819) 40.0 % GLUCOSE-STAT [id number] 17:14:00 Test Item Value Reference Range Interpretation Comments GLUCOSE RANDOM (BEAKER) (test code 144 mg/dL 70-110 H = 652) HGB/HCT (H&H) - STAT [id number] 17:14:00 Test Item Value Reference Range Interpretation Comments HEMOGLOBIN (BEAKER) (test code = 8.7 g/dL 13.0-16.8 L 410) HEMATOCRIT (BEAKER) (test code = 26.0 % 40.0-50.0 L 411) SODIUM NA-STAT [id number] 17:13:00 Test Item Value Reference Range Interpretation Comments SODIUM (BEAKER) (test code = 381) 136 meq/L 136-145 POTASSIUM-STAT [id number] 17:13:00 Test Item Value Reference Range Interpretation Comments POTASSIUM (BEAKER) (test code = 4.2 meq/L 3.6-5.5 379) [id number] 16:36:00 Test Item Value Reference Range Interpretation Comments PHOSPHORUS (BEAKER) (test code = 6.3 mg/dL 2.3-4.7 H 604) Art Class Model ID - [id number] 16:36:00 Test Item Value Reference Range Interpretation Comments MAGNESIUM (BEAKER) (test code = 2.2 mg/dL 1.6-2.6 627) Art Class Model ID - BSLACTIC ACID, [id number] 16:35:00 Test Item Value Reference Range Interpretation Comments LACTATE BLOOD ARTERIAL (2) 5.4 mmol/L 0.5-2.2 HH (BEAKER) (test code = 2874) Art Class Model ID - BSBLOOD GAS, [id number] 16:22:00 Test Item Value Reference Range Interpretation Comments PH ARTERIAL (BEAKER) (test code = 7.43 7.35-7.45 383) PCO2 ARTERIAL (BEAKER) (test code 31 mmHg 35-45 L = 384) PO2 ARTERIAL (BEAKER) (test code 146 mmHg 80-90 H = 385) O2 SATURATION ARTERIAL (BEAKER) 99.0 % 96.0-97.0 H (test code = 386) HCO3 ARTERIAL (BEAKER) (test code 20 mmol/L 21-29 L = 388) BASE EXCESS ARTERIAL (BEAKER) -3.7 mmol/L -2.0-3.0 L (test code = 387) PATIENT TEMPERATURE (BEAKER) 35.8 C (test code = 1818) FIO2 (BEAKER) (test code = 1819) 40.0 % GLUCOSE-STAT [id number] 16:22:00 Test Item Value Reference Range Interpretation Comments GLUCOSE RANDOM (BEAKER) (test code 147 mg/dL 70-110 H = 652) HGB/HCT (H&H) - STAT [id number] 16:22:00 Test Item Value Reference Range Interpretation Comments HEMOGLOBIN (BEAKER) (test code = 9.1 g/dL 13.0-16.8 L 410) HEMATOCRIT (BEAKER) (test code = 27.0 % 40.0-50.0 L 411) SODIUM NA-STAT [id number] 16:20:00 Test Item Value Reference Range Interpretation Comments SODIUM (BEAKER) (test code = 381) 135 meq/L 136-145 L POTASSIUM-STAT [id number] 16:20:00 Test Item Value Reference Range Interpretation Comments POTASSIUM (BEAKER) (test code = 3.9 meq/L 3.6-5.5 379) HEPATITIS B SURFACE [id number] 15:49:00 Test Item Value Reference Range Interpretation Comments HEPATITIS B SURFACE ANTIGEN (2) Nonreactive Nonreactive (BEAKER) (test code = 2585) Specimen is considered negative for HBsAg.LACTIC ACID, [id number] 15:06:00 Test Item Value Reference Range Interpretation Comments LACTATE BLOOD ARTERIAL (2) 5.2 mmol/L 0.5-2.2 HH (BEAKER) (test code = 2874) Art Class Model ID - NTPBASIC METABOLIC [id number] 15:05:00 Test Item Value Reference Range Interpretation Comments SODIUM (BEAKER) 140 meq/L 136-145 (test code = 381) POTASSIUM (BEAKER) 4.1 meq/L 3.5-5.1 (test code = 379) CHLORIDE (BEAKER) 107 meq/L 98-107 (test code = 382) CO2 (BEAKER) (test 18 meq/L 22-29 L code = 355) BLOOD UREA NITROGEN 76 mg/dL 7-21 H (BEAKER) (test code = 354) CREATININE (BEAKER) 8.22 mg/dL 0.57-1.25 H (test code = 358) GLUCOSE RANDOM 166 mg/dL 70-105 H (BEAKER) (test code = 652) CALCIUM (BEAKER) 8.4 mg/dL 8.4-10.2 (test code = 697) EGFR (BEAKER) (test 6 mL/min/1.73 ESTIMAT ED GFR IS code = 1092) sq m NOT ACCURATE CREATININE CLEARANCE IN PREDICTING GLOMERULAR FILTRATION RATE . ESTIMATED GFR I S NOT APPLICABLE FOR DIALYSIS PATIEN TS. Art Class Model ID - [id number] 15:04:00 Test Item Value Reference Range Interpretation Comments Glucose (test code = 166 mg/dL 70-105 H 2345-7) JARRED (test code = JARRED) Art Class Model ID - NTP Lab Interpretation (test Abnormal code = 76884-4) [id number] 15:04:00 Test Item Value Reference Range Interpretation Comments POTASSIUM (BEAKER) (test code = 4.1 meq/L 3.5-5.1 379) Art Class Model ID - [id number] 15:04:00 Test Item Value Reference Range Interpretation Comments GLUCOSE RANDOM (BEAKER) (test code 166 mg/dL 70-105 H = 652) Art Class Model ID - NTPBLOOD GAS, [id number] 14:46:00 Test Item Value Reference Range Interpretation Comments PH ARTERIAL (BEAKER) (test code = 7.36 7.35-7.45 383) PCO2 ARTERIAL (BEAKER) (test code 31 mmHg 35-45 L = 384) PO2 ARTERIAL (BEAKER) (test code 199 mmHg 80-90 H = 385) O2 SATURATION ARTERIAL (BEAKER) 99.3 % 96.0-97.0 H (test code = 386) HCO3 ARTERIAL (BEAKER) (test code 17 mmol/L 21-29 L = 388) BASE EXCESS ARTERIAL (BEAKER) -7.6 mmol/L -2.0-3.0 L (test code = 387) PATIENT TEMPERATURE (BEAKER) 36.3 C (test code = 1818) FIO2 (BEAKER) (test code = 1819) 40.0 % POCT-GLUCOSE [id number] 14:29:00 Test Item Value Reference Range Interpretation Comments POC-GLUCOSE METER 153 mg/dL 70-110 H : TESTED A T [facility] 6720 (BEAKER) (test code = [place], 1538) [address]: Art Class Model/Techni jessica ID = [id number] for PEDRO LUIS [place] POCT-GLUCOSE [id number] 13:30:00 Test Item Value Reference Range Interpretation Comments POC-GLUCOSE METER 158 mg/dL 70-110 H : [facility] (BEAKER) (test code = [place], 1538) [address]: Art Class Model/Techni jessica ID = [id number] for Tiffanie Manzo RAD, CHEST, 1 VIEW, NON [id number] 12:34:00Reason for exam:->post opShould this be performed at the bedside?->YesFINAL REPORT CLINICAL HISTORY: post op TECHNIQUE: 1 view of the chest. COMPARISON: 01/23/2020 IMPRESSION: The patient is status post median sternotomy with an endotracheal tube atthe clavicles, a left jugular [place] catheter with its tip directed into the right pulmonary outflow tract, a nasogastric tube in the stomach, and midline and left-sided chest tubes. The tip of the IABP marker projects approximately 5 cm below the aortic knob apex. There is no pneumothorax. Right asymmetric airspace opacities are seen with trace bilateral pleural effusions. Signed: Adelfo Raygoza MDReport Verified Date/Time: 01/23/2020 12:34:11 Reading Location: [facility] Radiology Reading Room PHOSPHORUS 2020-01-23 12:26:00 Test Item Value Reference Range Interpretation Comments PHOSPHORUS (BEAKER) (test code = 9.2 mg/dL 2.3-4.7 604) Art Class Model ID - NTPBASIC METABOLIC [id number] 12:24:00 Test Item Value Reference Range Interpretation Comments SODIUM (BEAKER) 139 meq/L 136-145 (test code = 381) POTASSIUM (BEAKER) 5.1 meq/L 3.5-5.1 (test code = 379) CHLORIDE (BEAKER) 106 meq/L 98-107 (test code = 382) CO2 (BEAKER) (test 19 meq/L 22-29 L code = 355) BLOOD UREA NITROGEN 87 mg/dL 7-21 H (BEAKER) (test code = 354) CREATININE (BEAKER) 8.72 mg/dL 0.57-1.25 H (test code = 358) GLUCOSE RANDOM 202 mg/dL 70-105 H (BEAKER) (test code = 652) CALCIUM (BEAKER) 9.0 mg/dL 8.4-10.2 (test code = 697) EGFR (BEAKER) (test 6 mL/min/1.73 ESTIMAT ED GFR IS code = 1092) sq m NOT ACCURATE CREATININE CLEARANCE IN PREDICTING GLOMERULAR FILTRATION RATE . ESTIMATED GFR I S NOT APPLICABLE FOR DIALYSIS PATIEN TS. Art Class Model ID - [id number] 12:22:00 Test Item Value Reference Range Interpretation Comments MAGNESIUM (BEAKER) (test code = 2.5 mg/dL 1.6-2.6 627) Art Class Model ID - NTPLACTIC ACID, [id number] 12:14:00 Test Item Value Reference Range Interpretation Comments LACTATE BLOOD 3.5 mmol/L 0.5-2.2 H Specimen sligh tly ARTERIAL (2) (BEAKER) hemoly zed (test code = 2874) Art Class Model ID - [id number] 11:56:00 Test Item Value Reference Range Interpretation Comments PTT (test code = 73753-7) 39.6 22.5- 36.0 seconds H Lab Interpretation (test code = Abnormal 77593-4) [facility] 11:56:00 Test Item Value Reference Range Interpretation Comments PARTIAL THROMBOPLASTIN TIME 39.6 seconds 22.5-36.0 H (BEAKER) (test code = 760) Platelet [id number] 11:55:00 Test Item Value Reference Range Interpretation Comments Platelets (test code 231 150- 450 K/CU MM Dis cordant PLT = 777-3) result compared to previous result ; clinical correlation required. JARRED (test code = JARRED) Art Class Model ID - [id number] Lab Interpretation Normal (test code = 32366-0) [facility]ibr[facility]2020-[facility] 11:55:00 Test Item Value Reference Range Interpretation Comments Fibrinogen (test code = 3255-7) 485 mg/dl 225-434 H Lab Interpretation (test code = Abnormal 43019-0) [facility] CenterPLATE[facility] [id number] 11:55:00 Test Item Value Reference Range Interpretation Comments PLATELET COUNT 231 K/CU MM 150-[address] T result (BEAKER) (test code compared to previous = 756) result; clinica l correlation req uired. Art Class Model ID - [id number] W/PLT COUNT & AUTO [id number] 11:55:00 Test Item Value Reference Range Interpretation Comments WHITE BLOOD CELL COUNT 22.6 K/ L 3.5-10.5 H (BEAKER) (test code = 775) RED BLOOD CELL COUNT 2.83 M/ L 4.63-6.08 L (BEAKER) (test code = 761) HEMOGLOBIN (BEAKER) 9.2 GM/DL 13.7-17.5 L (test code = 410) HEMATOCRIT (BEAKER) 27.4 % 40.1-51.0 L (test code = 411) MEAN CORPUSCULAR 96.8 fL 79.0-92.2 H VOLUME (BEAKER) (test code = 753) MEAN CORPUSCULAR 32.5 pg 25.7-32.2 H HEMOGLOBIN (BEAKER) (test code = 751) MEAN CORPUSCULAR 33.6 GM/DL 32.3-36.5 HEMOGLOBIN CONC (BEAKER) (test code = 752) RED CELL DISTRIBUTION 15.2 % 11.6-14.4 H WIDTH (BEAKER) (test code = 412) PLATELET COUNT 231 K/CU MM 150-[address] T (BEAKER) (test code = result compared to 756) previous result ; clinical correl ation required. MEAN PLATELET VOLUME 10.8 fL 9.4-12.4 (BEAKER) (test code = 754) NUCLEATED RED BLOOD 0 /100 WBC 0-0 CELLS (BEAKER) (test code = 413) NEUTROPHILS RELATIVE 86 % PERCENT (BEAKER) (test code = 429) LYMPHOCYTES RELATIVE 8 % PERCENT (BEAKER) (test code = 430) MONOCYTES RELATIVE 4 % PERCENT (BEAKER) (test code = 431) EOSINOPHILS RELATIVE 0 % PERCENT (BEAKER) (test code = 432) BASOPHILS RELATIVE 0 % PERCENT (BEAKER) (test code = 437) NEUTROPHILS ABSOLUTE 19.44 K/ L 1.78-5.38 H COUNT (BEAKER) (test code = 670) LYMPHOCYTES ABSOLUTE 1.70 K/ L 1.32-3.57 COUNT (BEAKER) (test code = 414) MONOCYTES ABSOLUTE 0.84 K/ L 0.30-0.82 H COUNT (BEAKER) (test code = 415) EOSINOPHILS ABSOLUTE 0.08 K/ L 0.04-0.54 COUNT (BEAKER) (test code = 416) BASOPHILS ABSOLUTE 0.06 K/ L 0.01-0.08 COUNT (BEAKER) (test code = 417) IMMATURE 2 % 0-1 H GRANULOCYTES-RELATIVE PERCENT (BEAKER) (test code = 2801) PROTHROMBIN [id number] 11:55:00 Test Item Value Reference Range Interpretation Comments PROTIME (BEAKER) (test code = 21.1 seconds 11.9-14.2 H 759) INR (BEAKER) (test code = 370) 1.9 <=5.9 Effective 02/08/2019: PT Reference Range ChangeNew: 11.9-14.2 Previous: 11.7- 14.7RECOMMENDED COUMADIN/WARFARIN INR THERAPY RANGESSTANDARD DOSE: 2.0-3.0 Includes: PROPHYLAXIS for venous thrombosis, systemic embolization; TREATMENT for venous thrombosis and/or pulmonary embolus.HIGH RISK: Target INR is2.5-3.5 for patients wiht mechanical heart valves.[id number] 11:55:00 Test Item Value Reference Range Interpretation Comments FIBRINOGEN LEVEL (BEAKER) (test 485 mg/dl 225-434 H code = 658) OXYGEN SATURATION, [id number] 11:34:00 Test Item Value Reference Range Interpretation Comments O2 SATURATION (MEASURED) (BEAKER) 83.0 % (test code = 1455) GLUCOSE-STAT [id number] 11:34:00 Test Item Value Reference Range Interpretation Comments GLUCOSE RANDOM (BEAKER) (test code 198 mg/dL 70-110 H = 652) BLOOD GAS, [id number] 11:34:00 Test Item Value Reference Range Interpretation Comments PH ARTERIAL (BEAKER) (test code = 7.29 7.35-7.45 L 383) PCO2 ARTERIAL (BEAKER) (test code 39 mmHg 35-45 = 384) PO2 ARTERIAL (BEAKER) (test code 154 mmHg 80-90 H = 385) O2 SATURATION ARTERIAL (BEAKER) 98.9 % 96.0-97.0 H (test code = 386) HCO3 ARTERIAL (BEAKER) (test code 19 mmol/L 21-29 L = 388) BASE EXCESS ARTERIAL (BEAKER) -7.5 mmol/L -2.0-3.0 L (test code = 387) PATIENT TEMPERATURE (BEAKER) 35.0 C (test code = 1818) FIO2 (BEAKER) (test code = 1819) 40.0 % SODIUM NA-STAT [id number] 11:34:00 Test Item Value Reference Range Interpretation Comments SODIUM (BEAKER) (test code = 381) 132 meq/L 136-145 L HGB/HCT (H&H) - STAT [id number] 11:34:00 Test Item Value Reference Range Interpretation Comments HEMOGLOBIN (BEAKER) (test code = 9.4 g/dL 13.0-16.8 L 410) HEMATOCRIT (BEAKER) (test code = 28.0 % 40.0-50.0 L 411) [id number] 11:32:00 Test Item Value Reference Range Interpretation Comments PHOSPHORUS (BEAKER) (test code = 9.7 mg/dL 2.3-4.7 HH 604) Art Class Model ID - NTPPOTASSIUM-STAT [id number] 11:31:00 Test Item Value Reference Range Interpretation Comments POTASSIUM (BEAKER) (test code = 5.0 meq/L 3.6-5.5 379) CALCIUM, [id number] 11:31:00 Test Item Value Reference Range Interpretation Comments CALCIUM IONIZED (BEAKER) (test 1.14 mmol/L 1.12-1.27 code = 698) PH, BLOOD (BEAKER) (test code = 7.27 1810) CBC W/PLT COUNT & AUTO [id number] 11:07:00 Test Item Value Reference Range Interpretation Comments WHITE BLOOD CELL COUNT (BEAKER) 17.8 K/ L 3.5-10.5 H (test code = 775) RED BLOOD CELL COUNT (BEAKER) 2.35 M/ L 4.63-6.08 L (test code = 761) HEMOGLOBIN (BEAKER) (test code = 7.6 GM/DL 13.7-17.5 L 410) HEMATOCRIT (BEAKER) (test code = 23.2 % 40.1-51.0 L 411) MEAN CORPUSCULAR VOLUME (BEAKER) 98.7 fL 79.0-92.2 H (test code = 753) MEAN CORPUSCULAR HEMOGLOBIN 32.3 pg 25.7-32.2 H (BEAKER) (test code = 751) MEAN CORPUSCULAR HEMOGLOBIN CONC 32.8 GM/DL 32.3-36.5 (BEAKER) (test code = 752) RED CELL DISTRIBUTION WIDTH 15.2 % 11.6-14.4 H (BEAKER) (test code = 412) PLATELET COUNT (BEAKER) (test code 94 K/CU MM 150-450 L = 756) MEAN PLATELET VOLUME (BEAKER) 11.9 fL 9.4-12.4 (test code = 754) NUCLEATED RED BLOOD CELLS (BEAKER) 0 /100 WBC 0-0 (test code = 413) NEUTROPHILS RELATIVE PERCENT 78 % (BEAKER) (test code = 429) LYMPHOCYTES RELATIVE PERCENT 15 % (BEAKER) (test code = 430) MONOCYTES RELATIVE PERCENT 4 % (BEAKER) (test code = 431) EOSINOPHILS RELATIVE PERCENT 0 % (BEAKER) (test code = 432) BASOPHILS RELATIVE PERCENT 0 % (BEAKER) (test code = 437) NEUTROPHILS ABSOLUTE COUNT 13.90 K/ L 1.78-5.38 H (BEAKER) (test code = 670) LYMPHOCYTES ABSOLUTE COUNT 2.66 K/ L 1.32-3.57 (BEAKER) (test code = 414) MONOCYTES ABSOLUTE COUNT (BEAKER) 0.79 K/ L 0.30-0.82 (test code = 415) EOSINOPHILS ABSOLUTE COUNT 0.03 K/ L 0.04-0.54 L (BEAKER) (test code = 416) BASOPHILS ABSOLUTE COUNT (BEAKER) 0.03 K/ L 0.01-0.08 (test code = 417) IMMATURE GRANULOCYTES-RELATIVE 2 % 0-1 H PERCENT (BEAKER) (test code = 2800) [id number] 11:06:00 Test Item Value Reference Range Interpretation Comments MAGNESIUM (BEAKER) (test code = 2.6 mg/dL 1.6-2.6 627) Art Class Model ID - NTPBLOOD GAS, [id number] 11:02:00 Test Item Value Reference Range Interpretation Comments PH ARTERIAL (BEAKER) (test code = 7.23 7.35-7.45 L 383) PCO2 ARTERIAL (BEAKER) (test code 45 mmHg 35-45 = 384) PO2 ARTERIAL (BEAKER) (test code 243 mmHg 80-90 H = 385) O2 SATURATION ARTERIAL (BEAKER) 99.4 % 96.0-97.0 H (test code = 386) HCO3 ARTERIAL (BEAKER) (test code 19 mmol/L 21-29 L = 388) BASE EXCESS ARTERIAL (BEAKER) -8.8 mmol/L -2.0-3.0 L (test code = 387) PATIENT TEMPERATURE (BEAKER) 36.0 C (test code = 1818) FIO2 (BEAKER) (test code = 1819) 100.0 % SODIUM NA-STAT [id number] 11:02:00 Test Item Value Reference Range Interpretation Comments SODIUM (BEAKER) (test code = 381) 134 meq/L 136-145 L GLUCOSE-STAT [id number] 11:02:00 Test Item Value Reference Range Interpretation Comments GLUCOSE RANDOM (BEAKER) (test code 224 mg/dL 70-110 H = 652) HGB/HCT (H&H) - STAT [id number] 11:02:00 Test Item Value Reference Range Interpretation Comments HEMOGLOBIN (BEAKER) (test code = 9.4 g/dL 13.0-16.8 L 410) HEMATOCRIT (BEAKER) (test code = 28.0 % 40.0-50.0 L 411) CALCIUM, [id number] 11:02:00 Test Item Value Reference Range Interpretation Comments CALCIUM IONIZED (BEAKER) (test 1.28 mmol/L 1.12-1.27 H code = 698) PH, BLOOD (BEAKER) (test code = 7.23 1810) POTASSIUM-STAT [id number] 10:56:00 Test Item Value Reference Range Interpretation Comments POTASSIUM (BEAKER) (test code = 5.3 meq/L 3.6-5.5 379) [id number] 10:30:00 Test Item Value Reference Range Interpretation Comments FIBRINOGEN LEVEL (BEAKER) (test 482 mg/dl 225-434 H code = 658) [id number] 10:30:00 Test Item Value Reference Range Interpretation Comments PARTIAL THROMBOPLASTIN TIME 42.7 seconds 22.5-36.0 H (BEAKER) (test code = 760) PROTHROMBIN TIME/[id number] 10:29:00 Test Item Value Reference Range Interpretation Comments PROTIME (BEAKER) (test code = 25.8 seconds 11.9-14.2 H 759) INR (BEAKER) (test code = 370) 2.4 <=5.9 Effective 02/08/2019: PT Reference Range ChangeNew: 11.9-14.2 Previous: 11.7- 14.7RECOMMENDED COUMADIN/WARFARIN INR THERAPY RANGESSTANDARD DOSE: 2.0-3.0 Includes: PROPHYLAXIS for venous thrombosis, systemic embolization; TREATMENT for venous thrombosis and/or pulmonary embolus.HIGH RISK: Target INR is2.5-3.5 for patients wiht mechanical heart valves.PLATELET [id number] 10:20:00 Test Item Value Reference Range Interpretation Comments PLATELET COUNT (BEAKER) (test code 95 K/CU MM 150-450 L = 756) Art Class Model ID - [id number], [id number] 10:16:00 Test Item Value Reference Range Interpretation Comments CALCIUM IONIZED (BEAKER) (test 1.01 mmol/L 1.12-1.27 L code = 698) PH, BLOOD (BEAKER) (test code = 7.26 1810) HGB/HCT (H&H) - STAT [id number] 10:16:00 Test Item Value Reference Range Interpretation Comments HEMOGLOBIN (BEAKER) (test code = 7.9 g/dL 13.0-16.8 L 410) HEMATOCRIT (BEAKER) (test code = 23.0 % 40.0-50.0 L 411) BLOOD GAS, [id number] 10:16:00 Test Item Value Reference Range Interpretation Comments PH ARTERIAL (BEAKER) (test code = 7.35 7.35-7.45 383) PCO2 ARTERIAL (BEAKER) (test code 34 mmHg 35-45 L = 384) PO2 ARTERIAL (BEAKER) (test code 221 mmHg 80-90 H = 385) O2 SATURATION ARTERIAL (BEAKER) 99.5 % 96.0-97.0 H (test code = 386) HCO3 ARTERIAL (BEAKER) (test code 20 mmol/L 21-29 L = 388) BASE EXCESS ARTERIAL (BEAKER) -7.1 mmol/L -2.0-3.0 L (test code = 387) PATIENT TEMPERATURE (BEAKER) 30.3 C (test code = 1818) FIO2 (BEAKER) (test code = 1819) 100.0 % SODIUM NA-STAT [id number] 10:16:00 Test Item Value Reference Range Interpretation Comments SODIUM (BEAKER) (test code = 381) 132 meq/L 136-145 L POTASSIUM-STAT [id number] 10:16:00 Test Item Value Reference Range Interpretation Comments POTASSIUM (BEAKER) (test code = 6.6 meq/L 3.6-5.5 HH 379) GLUCOSE-STAT [id number] 10:16:00 Test Item Value Reference Range Interpretation Comments GLUCOSE RANDOM (BEAKER) (test code 241 mg/dL 70-110 H = 652) Carotid doppler [id number] 10:07:41Ejection FractionSLEH ECHO HEARTLAB MKCKESSON CPACSRight Impression1. There is <50% diameter reduction (approximately 17% by 2-D measurement)in the internal carotid artery with a peak velocity of 38.1/19.9 cm/sec andheterogeneous plaque.2. There is non-occluding plaque in the external carotid artery.3. There is non-occluding plaque in the common carotid artery.4. The vertebral artery flow is antegrade and normal.5. The subclavian artery is within normal limits where visualized.6. The waveforms were consistent with IABP support.Left Impression1. There is <50% diameter reduction (approximately 16% by 2-D measurement)in the internal carotid artery with a peak velocity of 33.4/18.8 cm/sec andheterogeneous plaque.2. There is non-occluding plaque in the external carotid artery.3. There is non-occluding plaque in the common carotid artery.4. The vertebral artery flow is antegrade and normal.5. The subclavian artery is patent with a velocity of 169 cm/s.6. The waveforms were consistent with IABP support. [...] artery was patent with normal flow where visualized;the left subclavian artery was patent with an elevated velocity. The waveforms were consistent with IABP support. Signature Velocities are measured in cm/s ; Diameters are measured in cm Carotid Right Measurements+ +----+----+-----+ + +---- -------+!Location !PSV !EDV !Angle!%Stenosis 2D!%Stenosis Doppler!Tortuosity !+ + ----+----+-----+ + + +!Prox CCA !56.3!12.9!60 ! ! ! !+ +----+----+-----+ + +--- --------+!Dist CCA !55.7!18.2!60 ! ! ! !+ +----+----+-----+ + + +!Prox ICA !38.1!19.9!60 !17% !<50% ! !+ +----+----+-----+ + + +!Dist ICA !31.1!11.7!0 ! ! ! !+ ----+----+----+-----+ + + +!Prox ECA !73.3!11.1!60 ! ! ! !+ +----+----+-----+ + -+ +!Vertebral !45.7!19.3!60 ! ! ! !+ -----+----+----+-----+ + + +!Prox Subclavian!106 ! !60 ! ! ! !+ +----+----+-----+ + + + - There is antegrade vertebral flow noted on the right side. - Additional Measurements:ICAPSV/CCAPSV 0.68.ICAEDV/CCAEDV 1.54. Carotid Left Measurements+ +----+----+---- -+ + + +!Location !PSV !EDV !Angle!%Stenosis 2D!%StenosisDoppler!Tortuosity !+ +----+----+-----+ + + +!Pr ox CCA !94.3!19.3!60 ! ! ! !+ +----+----+--- --+ + + +!Dist CCA !47.5!28.1!60 ! ! ! !+ +----+----+-----+ + + +!Pr ox ICA !33.4!18.8!60 !16% !<50% ! !+ +----+---- +-----+ + + +!Dist ICA !38.1!19.9!0 ! ! ! !+ +----+----+-----+ + + + !Prox ECA !70.7!14.1!60 ! ! ! !+ +----+--- -+-----+ + + +!Vertebral !37.5!10.6!60 ! ! ! !+ +----+----+-----+ + + +!Prox Subclavian!169 ! !60 ! ! ! !+ +----+----+-----+ + + + - There is antegrade vertebral flow noted on the left side. - Additional Measurements:ICAPSV/CCAPSV 0.8.ICAEDV/CCAEDV 1.03. 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 Indications for Study:Pre ACB.Patient Status:Routine.Study Location :Portable.Technical Quality:Adequate visualization.Risk FactorsHistory of Disease+ -------+----+ +!Diagnosis !Date!Comments !+ +----+ -----+!History/Risk Factors: ! !HTN, CAD, DM, CKD, ESRD, IABP !+ --------+----+ +ImpressionsRight Impression1. There is <50% diameter reduction (approximately 17% by 2-D measurement)in the internal carotid artery with a peak velocity of 38.1/19.9 cm/sec andheterogeneous plaque.2. There is non-occluding plaque in the external carotid artery.3. There is non-occluding plaque in the common carotid artery.4. The vertebral artery flow is antegrade and normal.5. The subclavian artery is within normal limits where visualized.6.The waveforms were consistent with IABP support.Left Impression1. There is <50% diameter reduction (approximately 16% by 2-D measurement)in the internal carotid artery with a peak velocity of 33.4/18.8 cm/sec andheterogeneous plaque.2. There is non-occluding plaque in the external carotid artery.3.There is non-occluding plaque in the common carotid artery.4. The vertebral artery flow is antegradeand normal.5. The subclavian artery is patent with a velocity of 169 cm/s.6. The waveforms were consistent with IABP support. [...] waveforms were consistent with IABP support. Signature ---- Velocities are measured in cm/s ; Diameters are measured in cmCarotid Right Measurements+ +----+----+-----+ +------- + +!Location !PSV !EDV !Angle!%Stenosis 2D!%Stenosis Doppler!Tortuosity !+- +----+----+-----+ + + +!Prox CCA !56.3!12.9!60 ! ! ! !+ +----+----+-----+ +------ + +!Dist CCA !55.7!18.2!60 ! ! ! !+ +----+----+-----+ + + +!Prox ICA !38.1!19.9!60 !17% !<50% ! !+ +----+----+-----+ +-- + +!Dist ICA !31.1!11.7!0 ! ! ! !+ +----+----+-----+ + + +!Pr ox ECA !73.3!11.1!60 ! ! ! !+ +----+----+-----+ +- + +!Vertebral !45.7!19.3!60 ! ! ! !+ +----+----+-----+ + + +!Pr ox Subclavian!106! !60 ! ! ! !+ +----+----+-----+ + + + - There is antegrade vertebral flow noted on the right side. - Additional Measurements:ICAPSV/CCAPSV 0.68.ICAEDV/CCAEDV 1.54.Carotid Left Measurements+ +-- --+----+-----+ + + +!Location !PSV !EDV !Angle!%Stenosis 2D!%Stenosis Doppler!Tortuosity !+ +----+----+-----+ + +----- ------+!Prox CCA !94.3!19.3!60 ! ! ! !+ +- ---+----+-----+ + + +!Dist CCA !47.5!28.1!60 ! ! ! !+ +----+----+-----+ + +---- -------+!Prox ICA !33.4!18.8!60 !16% !<50% ! !+ --+----+----+-----+ + + +!Dist ICA !38.1!19.9!0 ! ! ! !+ +----+----+-----+ + + +!Prox ECA !70.7!14.1!60 ! ! ! !+ ---+----+----+-----+ + + +!Vertebral !37.5!10.6!60 ! ! ! !+ +----+----+-----+ + + +!Prox Subclavian!169 ! !60 ! ! ! !+ ----+----+----+-----+ + + + - There is antegrade vertebral flow noted on the left side. - Additional Measurements:ICAPSV/CCAPSV 0.8.ICAEDV/CCAEDV 1.03.[facility] BLOOD GAS, [id number] 09:46:00 Test Item Value Reference Range Interpretation Comments PH ARTERIAL (BEAKER) (test code = 7.37 7.35-7.45 383) PCO2 ARTERIAL (BEAKER) (test code 40 mmHg 35-45 = 384) PO2 ARTERIAL (BEAKER) (test code 302 mmHg 80-90 H = 385) O2 SATURATION ARTERIAL (BEAKER) 99.7 % 96.0-97.0 H (test code = 386) HCO3 ARTERIAL (BEAKER) (test code 23 mmol/L 21-29 = 388) BASE EXCESS ARTERIAL (BEAKER) -2.5 mmol/L -2.0-3.0 L (test code = 387) PATIENT TEMPERATURE (BEAKER) 36.5 C (test code = 1818) FIO2 (BEAKER) (test code = 1819) 85.0 % POTASSIUM-STAT [id number] 09:46:00 Test Item Value Reference Range Interpretation Comments POTASSIUM (BEAKER) (test code = 6.3 meq/L 3.6-5.5 HH 379) GLUCOSE-STAT [id number] 09:46:00 Test Item Value Reference Range Interpretation Comments GLUCOSE RANDOM (BEAKER) (test code 206 mg/dL 70-110 H = 652) HGB/HCT (H&H) - STAT [id number] 09:46:00 Test Item Value Reference Range Interpretation Comments HEMOGLOBIN (BEAKER) (test code = 7.6 g/dL 13.0-16.8 L 410) HEMATOCRIT (BEAKER) (test code = 22.0 % 40.0-50.0 L 411) SODIUM NA-STAT [id number] 09:37:00 Test Item Value Reference Range Interpretation Comments SODIUM (BEAKER) (test code = 381) 137 meq/L 136-145 BLOOD GAS, [id number] 09:16:00 Test Item Value Reference Range Interpretation Comments PH ARTERIAL (BEAKER) (test code = 7.30 7.35-7.45 L 383) PCO2 ARTERIAL (BEAKER) (test code 41 mmHg 35-45 = 384) PO2 ARTERIAL (BEAKER) (test code 353 mmHg 80-90 H = 385) O2 SATURATION ARTERIAL (BEAKER) 99.7 % 96.0-97.0 H (test code = 386) HCO3 ARTERIAL (BEAKER) (test code 20 mmol/L 21-29 L = 388) BASE EXCESS ARTERIAL (BEAKER) -6.4 mmol/L -2.0-3.0 L (test code = 387) PATIENT TEMPERATURE (BEAKER) 36.0 C (test code = 1818) FIO2 (BEAKER) (test code = 1819) 100.0 % SODIUM NA-STAT [id number] 09:16:00 Test Item Value Reference Range Interpretation Comments SODIUM (BEAKER) (test code = 381) 134 meq/L 136-145 L GLUCOSE-STAT [id number] 09:16:00 Test Item Value Reference Range Interpretation Comments GLUCOSE RANDOM (BEAKER) (test code 153 mg/dL 70-110 H = 652) HGB/HCT (H&H) - STAT [id number] 09:16:00 Test Item Value Reference Range Interpretation Comments HEMOGLOBIN (BEAKER) (test code = 8.2 g/dL 13.0-16.8 L 410) HEMATOCRIT (BEAKER) (test code = 24.0 % 40.0-50.0 L 411) POTASSIUM-STAT [id number] 09:15:00 Test Item Value Reference Range Interpretation Comments POTASSIUM (BEAKER) (test code = 5.3 meq/L 3.6-5.5 379) [id number] 08:20:43Julio Bhatti MD - 01/23/2020 8:20 AM CDT TEEDate: 01/23/2020 8:20 AM Sex: Male Location: OR Requesting Physician: Bismark Augustine MDExaminer: Julio Bhatti MDNguyen, Anvinh, MD Intubated Sedated Patient screened for esoph disease:Yes Insertion: easy Probe Type: multiplane Modalities: 2D, CFM, CWD and PWD Pre Intervention Summary: 84 yo M presenting for ACB with Dr. Augustine.IABP 1:1Aorta: no aneurysm, no dissection, < 2 mm intimal thickening descending aorta, IABP 1.5 cm from subclavian take offAV: trileaflet morphology with partially fused NCC/RCC, no aortic stenosis (mean gradient 3), mild central aortic regurgitation (jet does not extend to anterior mitral leaflet tip)LV: enlarged chamber size, depressed systolic function (EF ~25% by qualitative assessment), anterior/anteroseptal wall akinesis, no thrombusMV: normal mo rphology, mild mitral regurgitation (VC <0.3, regurgitant volume 8 cc), no mitral stenosisLA: no ANNABEL thrombus, normal size and functionPV: limited visualizationRV: normal sized chamber, low normal function (TAPSE 1.96 cm), no thrombusTV: normal morphology, trace tricuspid regurgitation (TV inflow ve locities < 40 cm/s)RA: no thrombusNo evidence of SAMBilateral pleural effusionsNo PFO by color dopper flowAll findings communicated to surgical team. Post Intervention Summary: S/p ACB x1Epi 6, NE 8, Vaso 2, IABP 1:1No evidence of aortic dissection, IABP 1.5 cm away from subclavian take offLVEF ~25% by qualitative assessment, anterior/anteroseptal akinesisAI now mildRV function normalTR mild to moderate in setting of CVP 18No evidence of SAMNo pericardial effusionBilateral pleural effusion presentSurgeon notified of all findings.[facility] CenterCALCIUM, [id number] 08:20:00 Test Item Value Reference Range Interpretation Comments CALCIUM IONIZED (BEAKER) (test 1.00 mmol/L 1.12-1.27 L code = 698) PH, BLOOD (BEAKER) (test code = 7.41 1810) BLOOD GAS, [id number] 08:17:00 Test Item Value Reference Range Interpretation Comments PH ARTERIAL (BEAKER) (test code = 7.41 7.35-7.45 383) PCO2 ARTERIAL (BEAKER) (test code 31 mmHg 35-45 L = 384) PO2 ARTERIAL (BEAKER) (test code 308 mmHg 80-90 H = 385) O2 SATURATION ARTERIAL (BEAKER) 99.7 % 96.0-97.0 H (test code = 386) HCO3 ARTERIAL (BEAKER) (test code 20 mmol/L 21-29 L = 388) BASE EXCESS ARTERIAL (BEAKER) -4.4 mmol/L -2.0-3.0 L (test code = 387) PATIENT TEMPERATURE (BEAKER) 36.0 C (test code = 1818) FIO2 (BEAKER) (test code = 1819) 100.0 % GLUCOSE-STAT [id number] 08:14:00 Test Item Value Reference Range Interpretation Comments GLUCOSE RANDOM (BEAKER) (test code 135 mg/dL 70-110 H = 652) HGB/HCT (H&H) - STAT [id number] 08:14:00 Test Item Value Reference Range Interpretation Comments HEMOGLOBIN (BEAKER) (test code = 9.3 g/dL 13.0-16.8 L 410) HEMATOCRIT (BEAKER) (test code = 27.0 % 40.0-50.0 L 411) SODIUM NA-STAT [id number] 08:14:00 Test Item Value Reference Range Interpretation Comments SODIUM (BEAKER) (test code = 381) 133 meq/L 136-145 L POTASSIUM-STAT [id number] 08:13:00 Test Item Value Reference Range Interpretation Comments POTASSIUM (BEAKER) (test code = 5.3 meq/L 3.6-5.5 379) 2D Echo W/Doppler(CW/PW/Color)2020-01-23 08:08:21Ejection FractionSLEH ECHO HEARTLAB MKCKESSON CPACSInterface, External Ris In - 01/23/2020 8:08 AM C DTTransthoracic Echocardiography Report (TTE) Demographics Patient Name STEVE GAMEZ Date ofStudy 01/22/2020 MIGUEL Gender MaleVisit Number [id number] Race Unknown Room Number SCPR Number Date of 1935 Referring Anselmo Ahmadi Physician Age 84 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 Signature Findings L eft Ventricle Normal left ventricular chamber size. Normal wall thickness. Entire anterior septum and apex are akinetic, mid-distal anterior and inferior zelaya are akinetic. Remaining segments are mildly hypokinetic (LCX territory and basal inferior wall). LV endocardium is adequately visualized with IV ultrasound enhancing agent. Estimated LVEF by qualitative assessment is severely reduced (25-29%) . Left Atrium LA size is normal . Right Ventricle The right ventricular chamber size and systolic function are likely within normal limits. RightAtrium RA size is normal. Atrial Septum Normal interatrial septum by available views. Aortic Valve Mild AoV cusp thickening. A trace of aortic regurgitation. Mitral Valve Normal MV structure. Mild mitral regurgitation. Tricuspid Valve Mild tricuspid regurgitation. Estimated peak systolic PA pressure is 35- 40 mmHg . Normal TV structure.Pulmonic Valve Normal PV structure appears normal by available views.Mild GA. Aorta Aortic root size (SInus of Valsalva diameter) is normal . Pericardium No significant pericardial effusion is visualized. IVC/SVC/PA/PV/Pleural The estimated RA [...] LVOT Diameter: 2.09 cm LVOT VTI: 17.24 cmLVOT Area: 3.43 cm^2 LVOT SV:59.12 ml LVOT CO: 4.79 l/min LVOT CI: 2.51l/min/m^2 Tricuspid Valve TR Velocity: 2.6 m/s TR Gradient: 26.95 mmHgKaiser Permanente [facility] Center TROPONIN [id number] 05:45:00 Test Item Value Reference Range Interpretation Comments TROPONIN I (BEAKER) (test code = 267.29 ng/mL 0.00-0.03 [facility]) Troponin I (TnI) levels must be interpreted in the context of the presenting symptoms and the clinical findings. Elevated TnI levels indicate myocardial damage, but are not specific for ischemic heart disease. Elevated TnI levels are seen in patients with other cardiac conditions (including myocarditis and congestive heart failure), and slight TnI elevations occur in patients with other conditions, including sepsis, renal failure, acidosis, acute neurological disease, and persistent tachyarrhythmia.Art Class Model ID - DANIEL Harleyrator ID - DANIEL LCOMPREHENSIVE METABOLIC [id number] 05:23:00 Test Item Value Reference Range Interpretation Comments TOTAL PROTEIN 6.6 gm/dL 6.0-8.3 Specimen sligh tly (BEAKER) (test code = hemoly zed 770) ALBUMIN (BEAKER) 3.3 g/dL 3.5-5.0 L Specimen sl ightly (test code = 1145) hemolyzed ALKALINE PHOSPHATASE 71 U/L 40-150 (BEAKER) (test code = 346) BILIRUBIN TOTAL 0.7 mg/dL 0.2-1.2 Specimen sli ghtly (BEAKER) (test code = hemoly zed 377) SODIUM (BEAKER) (test 136 meq/L 136-145 code = 381) POTASSIUM (BEAKER) 5.5 meq/L 3.5-5.1 H Specimen slightly (test code = 379) hemolyzed CHLORIDE (BEAKER) 100 meq/L 98-107 (test code = 382) CO2 (BEAKER) (test 19 meq/L 22-29 L code = 355) BLOOD UREA NITROGEN 93 mg/dL 7-21 H (BEAKER) (test code = 354) CREATININE (BEAKER) 10.75 mg/dL 0.57-1.25 H Specimen slightly (test code = 358) hemolyzed GLUCOSE RANDOM 150 mg/dL 70-105 H (BEAKER) (test code = 652) CALCIUM (BEAKER) 8.5 mg/dL 8.4-10.2 (test code = 697) AST (SGOT) (BEAKER) 138 U/L 5-34 H Specimen slightly (test code = 353) hemolyzed ALT (SGPT) (BEAKER) 40 U/L 6-55 Specimen slightly (test code = 347) hemolyzed EGFR (BEAKER) (test 5 mL/min/1.73 ESTIMAT ED GFR IS code = 1092) sq m NOT ACCURATE CREATININE CLEARANCE IN PREDICTING GLOMERULAR FILTRATION RATE . ESTIMATED GFR I S NOT APPLICABLE FOR DIALYSIS PATIEN TS. Art Class Model ID - PIAYA [id number] 04:02:00 Test Item Value Reference Range Interpretation Comments PARTIAL THROMBOPLASTIN TIME 53.0 seconds 22.5-36.0 H (BEAKER) (test code = 760) 6 hours after starting heparin infusion and as indicated per sliding scaleRAD, CHEST, 1 VIEW, NON [id number] 03:56:00Reason for exam:->iabpFINAL REPORT RAD, CHEST, 1 VIEW, NON DEPT INDICATION: iabp COMPARISON: Exam from four hours prior FINDINGS: Portable frontal view of the chest. IMPRESSION: Support Lines: The intra-aortic balloon pump marker is 4.7 cm below the superior margin of the aortic arch. Lungs and pleura: Unchanged right greater than left patchy airspace opacities. No pneumothorax.Heart and mediastin um: Stable contours. Additional findings: None. Signed: Nic Camarilloeport Verified Date/Time: 01/23/2020 03:56:10 CBC W/PLT COUNT & AUTO DIFFERENTIAL 2020-01-23 03:55:00 Test Item Value Reference Range Interpretation Comments WHITE BLOOD CELL COUNT (BEAKER) 12.9 K/ L 3.5-10.5 H (test code = 775) RED BLOOD CELL COUNT (BEAKER) 2.84 M/ L 4.63-6.08 L (test code = 761) HEMOGLOBIN (BEAKER) (test code = 9.1 GM/DL 13.7-17.5 L 410) HEMATOCRIT (BEAKER) (test code = 27.7 % 40.1-51.0 L 411) MEAN CORPUSCULAR VOLUME (BEAKER) 97.5 fL 79.0-92.2 H (test code = 753) MEAN CORPUSCULAR HEMOGLOBIN 32.0 pg 25.7-32.2 (BEAKER) (test code = 751) MEAN CORPUSCULAR HEMOGLOBIN CONC 32.9 GM/DL 32.3-36.5 (BEAKER) (test code = 752) RED CELL DISTRIBUTION WIDTH 14.1 % 11.6-14.4 (BEAKER) (test code = 412) PLATELET COUNT (BEAKER) (test 156 K/CU MM 150-450 code = 756) MEAN PLATELET VOLUME (BEAKER) 10.9 fL 9.4-12.4 (test code = 754) NUCLEATED RED BLOOD CELLS 0 /100 WBC 0-0 (BEAKER) (test code = 413) NEUTROPHILS RELATIVE PERCENT 80 % (BEAKER) (test code = 429) LYMPHOCYTES RELATIVE PERCENT 7 % (BEAKER) (test code = 430) MONOCYTES RELATIVE PERCENT 11 % (BEAKER) (test code = 431) EOSINOPHILS RELATIVE PERCENT 0 % (BEAKER) (test code = 432) BASOPHILS RELATIVE PERCENT 0 % (BEAKER) (test code = 437) NEUTROPHILS ABSOLUTE COUNT 10.39 K/ L 1.78-5.38 H (BEAKER) (test code = 670) LYMPHOCYTES ABSOLUTE COUNT 0.94 K/ L 1.32-3.57 L (BEAKER) (test code = 414) MONOCYTES ABSOLUTE COUNT (BEAKER) 1.46 K/ L 0.30-0.82 H (test code = 415) EOSINOPHILS ABSOLUTE COUNT 0.01 K/ L 0.04-0.54 L (BEAKER) (test code = 416) BASOPHILS ABSOLUTE COUNT (BEAKER) 0.02 K/ L 0.01-0.08 (test code = 417) IMMATURE GRANULOCYTES-RELATIVE 1 % 0-1 PERCENT (BEAKER) (test code = 2801) RAD, CHEST, 1 VIEW, NON [id number] 23:41:00Reason for exam:->iabp positioningFINAL REPORT RAD, CHEST, 1 VIEW, NON DEPT INDICATION: iabp positioning COMPARISON: Exam from one hour prior FINDINGS: Portable frontal view of the chest. IMPRESSION: Support Lines: The intra- aortic balloon pump marker is now 5.4 cm below the superior margin of the aortic arch. Lungs and pleura: No short interval change in scattered airspace opacities bilaterally. No pneumothorax.Heart and mediastinum: Stable contours. Additional findings: None. Signed: Nic Camarillo MDReportVerified Date/Time: 01/22/2020 23:41:59 RAD, CHEST, 1 VIEW, NON [id number] 23:15:00Reason for exam:->iabp placementFINAL REPORT RAD, CHEST, 1 VIEW, NON DEPT INDICATION: iabp placement COMPARISON: Seven hours prior FINDINGS: Portable frontal view of the chest. IMPRESSION: Support Lines: IABP marker is 11 mm below the superior margin of the aortic knob. Lungs and pleura: Unchanged airspace opacities compatible with pulmonary edema. Pleural contours are stable. No pneumothorax.Heart and mediastinum: Stable contours. Additional findings: None. Signed: Erik Merrill MDReport Verified Date/Time: 01/22/2020 23:15:57 ONIN [id number] 20:23:00 Test Item Value Reference Range Interpretation Comments TROPONIN I (PIERRE) (test code = 233.57 ng/mL 0.00-0.03 397) Troponin I (TnI) levels must be interpreted in the context of the presenting symptoms and the clinical findings. Elevated TnI levels indicate myocardial damage, but are not specific for ischemic heart disease. Elevated TnI levels are seen in patients with other cardiac conditions (including myocarditis and congestive heart failure), and slight TnI elevations occur in patients with other conditions, including sepsis, renal failure, acidosis, acute neurological disease, and persistent tachyarrhythmia.Art Class Model ID - BSOperator ID - BSAPTT 2020-01-22 18:27:00 Test Item Value Reference Range Interpretation Comments PARTIAL THROMBOPLASTIN TIME 37.2 seconds 22.5-36.0 H (PIERRE) (test code = 760) Prior to initiating heparinRAD, CHEST, 1 VIEW, NON [id number] 15:47:00Reason for exam:->Pre-op screenShould this be performed at the bedside?->YesFINAL REPORT CHEST AP PORTABLE Comparison exam: 11/02/2016 History provided: Preoperative evaluation, renal failure Heart size magnified by projection. Pulmonary edema pattern throughout both lungs with trace pleural effusions. Signed: Hu Solo MDReport Verified Date/Time: 01/22/2020 15:47:35 Reading Location: [facility] Diagnostic Imaging Reading Room [place] [address] 1.310.12 Lipid [id number] 14:41:00 Test Item Value Reference Range Interpretation Comments Triglycerides (test 226 mg/dL code = 2571-8) Cholesterol (test code 171 mg/dL = 2093-3) HDL (test code = 40 mg/dL 2085-9) LDL Calculated (test 86 mg/dL code = 71548-3) JARRED (test code = JARRED) Triglyceride Reference Range: Low Risk <150 Borderline 150-199 High Risk 200-499 Very High Risk >=500 Cholesterol Reference Range: Low Risk <200 Borderline 200-239 High Risk >240 HDL Cholesterol Reference Range: Low Risk >=60 High Risk <40 LDL Cholesterol Reference Range: Optimal <100 Near Optimal 100-129 Borderline 130-159 High 160-189 Very High >=190 Art Class Model ID - DB [facility] [id number] 14:41:00 Test Item Value Reference Range Interpretation Comments MAGNESIUM (BEAKER) (test code = 2.5 mg/dL 1.6-2.6 627) Art Class Model ID - DBLIPID [id number] 14:41:00 Test Item Value Reference Range Interpretation Comments TRIGLYCERIDES (BEAKER) (test code = 226 mg/dL 540) CHOLESTEROL (BEAKER) (test code = 171 mg/dL 631) HDL CHOLESTEROL (BEAKER) (test code 40 mg/dL = 976) LDL CHOLESTEROL CALCULATED (BEAKER) 86 mg/dL (test code = 633) Triglyceride Reference Range: Low Risk <150 Borderline 150-199 High Risk 200-499 Very High Risk >=500Cholesterol Reference Range: Low Risk <200 Borderline 200-239 High Risk >240HDL Cholesterol Reference Range: Low Risk >=60 High Risk <40LDL Cholesterol Reference Range: Optimal <100 Near Optimal 100-129 Borderline 130-159 High 160-189 Very High >=190 Art Class Model ID - DBCOMPREHENSIVE METABOLIC [id number] 14:41:00 Test Item Value Reference Range Interpretation Comments TOTAL PROTEIN 6.8 gm/dL 6.0-8.3 (BEAKER) (test code = 770) ALBUMIN (BEAKER) 3.4 g/dL 3.5-5.0 L (test code = 1145) ALKALINE PHOSPHATASE 84 U/L 40-150 (BEAKER) (test code = 346) BILIRUBIN TOTAL 0.9 mg/dL 0.2-1.2 (BEAKER) (test code = 377) SODIUM (BEAKER) (test 135 meq/L 136-145 L code = 381) POTASSIUM (BEAKER) 5.6 meq/L 3.5-5.1 H (test code = 379) CHLORIDE (BEAKER) 99 meq/L 98-107 (test code = 382) CO2 (BEAKER) (test 20 meq/L 22-29 L code = 355) BLOOD UREA NITROGEN 79 mg/dL 7-21 H (BEAKER) (test code = 354) CREATININE (BEAKER) 9.47 mg/dL 0.57-1.25 H (test code = 358) GLUCOSE RANDOM 146 mg/dL 70-105 H (BEAKER) (test code = 652) CALCIUM (BEAKER) 8.5 mg/dL 8.4-10.2 (test code = 697) AST (SGOT) (BEAKER) 219 U/L 5-34 H (test code = 353) ALT (SGPT) (BEAKER) 45 U/L 6-55 (test code = 347) EGFR (BEAKER) (test 5 mL/min/1.73 ESTIMAT ED GFR IS code = 1092) sq m NOT ACCURATE CREATININE CLEARANCE IN PREDICTING GLOMERULAR FILTRATION RATE . ESTIMATED GFR I S NOT APPLICABLE FOR DIALYSIS PATIEN TS. Art Class Model ID - DBHemoglobin [id number] 14:11:00 Test Item Value Reference Range Interpretation Comments Hemoglobin A1C (test code = 4548-4) 5.6 % 4.3-6.1 Lab Interpretation (test code = Normal 16482-7) [facility] CenterHEMO[facility]IN [id number] 14:11:00 Test Item Value Reference Range Interpretation Comments HEMOGLOBIN A1C (BEAKER) (test code = 5.6 % 4.3-6.1 368) [id number] 14:07:00 Test Item Value Reference Range Interpretation Comments PARTIAL THROMBOPLASTIN TIME 40.7 seconds 22.5-36.0 H (BEAKER) (test code = 760) PROTHROMBIN TIME/[id number] 14:06:00 Test Item Value Reference Range Interpretation Comments PROTIME (BEAKER) (test code = 15.6 seconds 11.9-14.2 H 759) INR (BEAKER) (test code = 370) 1.3 <=5.9 Effective 02/08/2019: PT Reference Range ChangeNew: 11.9-14.2 Previous: 11.7- 14.7RECOMMENDED COUMADIN/WARFARIN INR THERAPY RANGESSTANDARD DOSE: 2.0-3.0 Includes: PROPHYLAXIS for venous thrombosis, systemic embolization; TREATMENT for venous thrombosis and/or pulmonary embolus.HIGH RISK: Target INR is2.5-3.5 for patients wiht mechanical heart valves.POCT-GLUCOSE [id number] 13:40:00 Test Item Value Reference Range Interpretation Comments POC-GLUCOSE METER 152 mg/dL 70-110 H : TESTED Naomi T [facility] 6720 (BEAKER) (test code = MALINIYOUNG VARGAS [place], 1538) [address]: Art Class Model/Techni jessica ID = [id number] for CATHY CLOUD CBC W/PLT COUNT & AUTO [id number] 13:40:00 Test Item Value Reference Range Interpretation Comments WHITE BLOOD CELL COUNT (BEAKER) 10.4 K/ L 3.5-10.5 (test code = 775) RED BLOOD CELL COUNT (BEAKER) 3.25 M/ L 4.63-6.08 L (test code = 761) HEMOGLOBIN (BEAKER) (test code = 10.3 GM/DL 13.7-17.5 L 410) HEMATOCRIT (BEAKER) (test code = 31.7 % 40.1-51.0 L 411) MEAN CORPUSCULAR VOLUME (BEAKER) 97.5 fL 79.0-92.2 H (test code = 753) MEAN CORPUSCULAR HEMOGLOBIN 31.7 pg 25.7-32.2 (BEAKER) (test code = 751) MEAN CORPUSCULAR HEMOGLOBIN CONC 32.5 GM/DL 32.3-36.5 (BEAKER) (test code = 752) RED CELL DISTRIBUTION WIDTH 14.2 % 11.6-14.4 (BEAKER) (test code = 412) PLATELET COUNT (BEAKER) (test 213 K/CU MM 150-450 code = 756) MEAN PLATELET VOLUME (BEAKER) 11.0 fL 9.4-12.4 (test code = 754) NUCLEATED RED BLOOD CELLS 0 /100 WBC 0-0 (BEAKER) (test code = 413) NEUTROPHILS RELATIVE PERCENT 84 % (BEAKER) (test code = 429) LYMPHOCYTES RELATIVE PERCENT 6 % (BEAKER) (test code = 430) MONOCYTES RELATIVE PERCENT 10 % (BEAKER) (test code = 431) EOSINOPHILS RELATIVE PERCENT 0 % (BEAKER) (test code = 432) BASOPHILS RELATIVE PERCENT 0 % (BEAKER) (test code = 437) NEUTROPHILS ABSOLUTE COUNT 8.75 K/ L 1.78-5.38 H (BEAKER) (test code = 670) LYMPHOCYTES ABSOLUTE COUNT 0.60 K/ L 1.32-3.57 L (BEAKER) (test code = 414) MONOCYTES ABSOLUTE COUNT (BEAKER) 0.99 K/ L 0.30-0.82 H (test code = 415) EOSINOPHILS ABSOLUTE COUNT 0.00 K/ L 0.04-0.54 L (BEAKER) (test code = 416) BASOPHILS ABSOLUTE COUNT (BEAKER) 0.02 K/ L 0.01-0.08 (test code = 417) IMMATURE GRANULOCYTES-RELATIVE 1 % 0-1 PERCENT (BEAKER) (test code = 2801) TSH/FREE T4 IF [id number] 10:20:00 Test Item Value Reference Range Interpretation Comments THYROID STIMULATING HORMONE 0.86 uIU/mL 0.35-4.94 (BEAKER) (test code = 772) HEPATITIS B [id number] 06:18:00 Test Item Value Reference Range Interpretation Comments HEPATITIS B CORE TOTAL ANTIBODY Nonreactive Nonreactive (BEAKER) (test code = 497) HEPATITIS B SURFACE ANTIBODY < mIU/mL <8.0 (BEAKER) (test code = 647) HEPATITIS B SURFACE ANTIGEN (2) Nonreactive Nonreactive (BEAKER) (test code = 2585) BASIC METABOLIC [id number] 05:58:00 Test Item Value Reference Range Interpretation Comments SODIUM (BEAKER) 146 meq/L 136-145 H (test code = 381) POTASSIUM (BEAKER) 4.1 meq/L 3.5-5.1 (test code = 379) CHLORIDE (BEAKER) 116 meq/L 98-107 H (test code = 382) CO2 (BEAKER) (test 19 meq/L 22-29 L code = 355) BLOOD UREA NITROGEN 83 mg/dL 7-21 H (BEAKER) (test code = 354) CREATININE (BEAKER) 5.06 mg/dL 0.57-1.25 H (test code = 358) GLUCOSE RANDOM 104 mg/dL 70-105 (BEAKER) (test code = 652) CALCIUM (BEAKER) 8.9 mg/dL 8.4-10.2 (test code = 697) EGFR (BEAKER) (test 11 mL/min/1.73 ESTIMA MAI GFR IS code = 1092) sq m NOT ACCURATE CREATININE CLEARANCE IN PREDICTING GLOMERULAR FILTRATION RATE . ESTIMATED GFR I S NOT APPLICABLE FOR DIALYSIS PATIEN TS. BASIC METABOLIC [id number] 06:23:00 Test Item Value Reference Range Interpretation Comments SODIUM (BEAKER) 150 meq/L 136-145 H (test code = 381) POTASSIUM (BEAKER) 4.1 meq/L 3.5-5.1 (test code = 379) CHLORIDE (BEAKER) 119 meq/L 98-107 H (test code = 382) CO2 (BEAKER) (test 20 meq/L 22-29 L code = 355) BLOOD UREA NITROGEN 75 mg/dL 7-21 H (BEAKER) (test code = 354) CREATININE (BEAKER) 4.54 mg/dL 0.57-1.25 H (test code = 358) GLUCOSE RANDOM 98 mg/dL 70-105 (BEAKER) (test code = 652) CALCIUM (BEAKER) 9.4 mg/dL 8.4-10.2 (test code = 697) EGFR (BEAKER) (test 13 mL/min/1.73 ESTIMA MAI GFR IS code = 1092) sq m NOT ACCURATE CREATININE CLEARANCE IN PREDICTING GLOMERULAR FILTRATION RATE . ESTIMATED GFR I S NOT APPLICABLE FOR DIALYSIS PATIEN TS. CBC (HEMOGRAM ONLY)2016-11-09 06:12:00 Test Item Value Reference Range Interpretation Comments WHITE BLOOD CELL COUNT (BEAKER) 6.0 K/ L 4.0-10.0 (test code = 775) RED BLOOD CELL COUNT (BEAKER) 2.99 M/ L 4.20-5.80 L (test code = 761) HEMOGLOBIN (BEAKER) (test code = 9.5 GM/DL 13.0-16.8 L 410) HEMATOCRIT (BEAKER) (test code = 26.8 % 40.0-50.0 L 411) MEAN CORPUSCULAR VOLUME (BEAKER) 89.7 fL 82.0-98.0 (test code = 753) MEAN CORPUSCULAR HEMOGLOBIN 31.8 pg 27.0-33.0 (AKER) (test code = 751) MEAN CORPUSCULAR HEMOGLOBIN CONC 35.4 GM/DL 32.0-36.0 (AKER) (test code = 752) RED CELL DISTRIBUTION WIDTH 16.5 % 10.3-14.2 H (BEAKER) (test code = 412) PLATELET COUNT ([facility]) (test 133 K/CU MM 150-430 L code = 756) MEAN PLATELET VOLUME (AKER) 7.7 fL 6.5-10.5 (test code = 754) NUCLEATED RED BLOOD CELLS 0 /100 WBC 0-0 ([facility]) (test code = 413) 0.00POCT-GLUCOSE [id number] 17:48:00 Test Item Value Reference Range Interpretation Comments POC-GLUCOSE METER 95 mg/dL 70-110 TESTED AT [place] [address] ([facility]) (test code = [facility] [address] 1538) POCT-GLUCOSE [id number] 16:00:00 Test Item Value Reference Range Interpretation Comments POC-GLUCOSE METER 81 mg/dL 70-110 TESTED AT [place] [address] ([facility]) (test code = [facility] [address] 1538) POCT-GLUCOSE [id number] 11:37:00 Test Item Value Reference Range Interpretation Comments POC-GLUCOSE METER 88 mg/dL 70-110 TESTED AT [place] [address] ([facility]) (test code = [facility] [address] 1538) POCT-GLUCOSE [id number] 08:18:00 Test Item Value Reference Range Interpretation Comments POC-GLUCOSE METER 82 mg/dL 70-110 TESTED AT [place] [address] ([facility]) (test code = [facility] [address] 1538) BASIC METABOLIC [id number] 06:08:00 Test Item Value Reference Range Interpretation Comments SODIUM (BEAKER) 145 meq/L 136-145 (test code = 381) POTASSIUM (BEAKER) 4.1 meq/L 3.5-5.1 (test code = 379) CHLORIDE (BEAKER) 112 meq/L 98-107 H (test code = 382) CO2 (BEAKER) (test 22 meq/L 22-29 code = 355) BLOOD UREA NITROGEN 68 mg/dL 7-21 H (BEAKER) (test code = 354) CREATININE (BEAKER) 5.02 mg/dL 0.57-1.25 H (test code = 358) GLUCOSE RANDOM 77 mg/dL 70-105 (BEAKER) (test code = 652) CALCIUM (BEAKER) 8.8 mg/dL 8.4-10.2 (test code = 697) EGFR (BEAKER) (test 11 mL/min/1.73 ESTIMA MAI GFR IS code = 1092) sq m NOT ACCURATE CREATININE CLEARANCE IN PREDICTING GLOMERULAR FILTRATION RATE . ESTIMATED GFR I S NOT APPLICABLE FOR DIALYSIS PATIEN TS. [id number] 06:07:00 Test Item Value Reference Range Interpretation Comments PHOSPHORUS (BEAKER) (test code = 5.2 mg/dL 2.3-4.7 H 604) [id number] 06:07:00 Test Item Value Reference Range Interpretation Comments MAGNESIUM (BEAKER) (test code = 2.2 mg/dL 1.6-2.6 627) POCT-GLUCOSE [id number] 21:33:00 Test Item Value Reference Range Interpretation Comments POC-GLUCOSE METER 96 mg/dL 70-110 TESTED AT [facility] (test code = [facility] [address] 1538) POCT-GLUCOSE [id number] 21:33:00 Test Item Value Reference Range Interpretation Comments POC-GLUCOSE METER 148 mg/dL 70-110 H TESTED AT [facility] [address] ([facility] (test code = [facility] 1538) [id number] 13:41:00 Test Item Value Reference Range Interpretation Comments FERRITIN (BEAKER) (test code = 1268 ng/mL 5-275 H 361) Effective 07/31/2014: Reference Range ChangeNew: Male 5-275 Previous: Male 22-322 Female 5-275 Female 10-291VITAMIN D, 25-HYDROXY 2016-11-03 13:41:00 Test Item Value Reference Range Interpretation Comments VITAMIN D 25-OH (BEAKER) (test 34.1 ng/mL 13.0-47.8 code = 2764) PTH, [id number] 13:15:00 Test Item Value Reference Range Interpretation Comments PARATHYROID HORMONE INTACT 161.7 pg/mL 8.5-72.5 H (AKER) (test code = 577) Effective 07/31/2014: Reference Range ChangeNew: 8.5-72.5 Previous: 15.0-90.0 [id number] 13:10:00 Test Item Value Reference Range Interpretation Comments PHOSPHORUS (BEAKER) (test code = 5.6 mg/dL 2.3-4.7 H 604) IRON, TIBC, % SAT. (WITHOUT FERRITIN)2016-11-03 13:10:00 Test Item Value Reference Range Interpretation Comments IRON (BEAKER) (test code = 547) 97 ug/dL 40-160 TOTAL IRON BINDING CAPACITY 183 ug/dL 250-450 L ([facility]) (test code = 769) IRON % SATURATION (2) ([facility]) 53 % 20-55 (test code = 2590) POCT-GLUCOSE [id number] 11:59:00 Test Item Value Reference Range Interpretation Comments POC-GLUCOSE METER 84 mg/dL 70-110 TESTED AT [place] [address] ([facility]) (test code = [facility] [address] 1538) POCT-GLUCOSE [id number] 08:05:00 Test Item Value Reference Range Interpretation Comments POC-GLUCOSE METER 89 mg/dL 70-110 TESTED AT [place] [address] ([facility]) (test code = [facility] [address] 1538) CBC W/PLT COUNT & AUTO [id number] 07:18:00 Test Item Value Reference Range Interpretation Comments WHITE BLOOD CELL COUNT (BEAKER) 3.9 K/ L 4.0-10.0 L (test code = 775) RED BLOOD CELL COUNT (BEAKER) 2.30 M/ L 4.20-5.80 L (test code = 761) HEMOGLOBIN (BEAKER) (test code = 7.3 GM/DL 13.0-16.8 L 410) HEMATOCRIT (BEAKER) (test code = 20.8 % 40.0-50.0 L 411) MEAN CORPUSCULAR VOLUME (BEAKER) 90.2 fL 82.0-98.0 (test code = 753) MEAN CORPUSCULAR HEMOGLOBIN 31.8 pg 27.0-33.0 (BEAKER) (test code = 751) MEAN CORPUSCULAR HEMOGLOBIN CONC 35.3 GM/DL 32.0-36.0 (BEAKER) (test code = 752) RED CELL DISTRIBUTION WIDTH 16.3 % 10.3-14.2 H (BEAKER) (test code = 412) PLATELET COUNT (BEAKER) (test 136 K/CU MM 150-430 L code = 756) MEAN PLATELET VOLUME (BEAKER) 7.7 fL 6.5-10.5 (test code = 754) NUCLEATED RED BLOOD CELLS 0 /100 WBC 0-0 (BEAKER) (test code = 413) NEUTROPHILS RELATIVE PERCENT 59 % (BEAKER) (test code = 429) LYMPHOCYTES RELATIVE PERCENT 28 % (BEAKER) (test code = 430) MONOCYTES RELATIVE PERCENT 6 % (BEAKER) (test code = 431) EOSINOPHILS RELATIVE PERCENT 7 % (BEAKER) (test code = 432) BASOPHILS RELATIVE PERCENT 0 % (BEAKER) (test code = 437) NEUTROPHILS ABSOLUTE COUNT 2.28 K/ L 1.80-8.00 (BEAKER) (test code = 670) LYMPHOCYTES ABSOLUTE COUNT 1.07 K/ L 1.48-4.50 L (BEAKER) (test code = 414) MONOCYTES ABSOLUTE COUNT (BEAKER) 0.24 K/ L 0.00-1.30 (test code = 415) EOSINOPHILS ABSOLUTE COUNT 0.27 K/ L 0.00-0.50 (BEAKER) (test code = 416) BASOPHILS ABSOLUTE COUNT (BEAKER) 0.01 K/ L 0.00-0.20 (test code = 417) 0.00BASI METABOLIC [id number] 06:19:00 Test Item Value Reference Range Interpretation Comments SODIUM (BEAKER) 146 meq/L 136-145 H (test code = 381) POTASSIUM (BEAKER) 4.0 meq/L 3.5-5.1 (test code = 379) CHLORIDE (BEAKER) 114 meq/L 98-107 H (test code = 382) CO2 (BEAKER) (test 20 meq/L 22-29 L code = 355) BLOOD UREA NITROGEN 72 mg/dL 7-21 H (BEAKER) (test code = 354) CREATININE (BEAKER) 5.28 mg/dL 0.57-1.25 H (test code = 358) GLUCOSE RANDOM 78 mg/dL 70-105 (BEAKER) (test code = 652) CALCIUM (BEAKER) 8.7 mg/dL 8.4-10.2 (test code = 697) EGFR (BEAKER) (test 11 mL/min/1.73 ESTIMA MAI GFR IS code = 1092) sq m NOT ACCURATE CREATININE CLEARANCE IN PREDICTING GLOMERULAR FILTRATION RATE . ESTIMATED GFR I S NOT APPLICABLE FOR DIALYSIS PATIEN TS. [id number] 06:13:00 Test Item Value Reference Range Interpretation Comments PHOSPHORUS (BEAKER) (test code = 6.2 mg/dL 2.3-4.7 H 604) [id number] 06:13:00 Test Item Value Reference Range Interpretation Comments MAGNESIUM (BEAKER) (test code = 2.5 mg/dL 1.6-2.6 627) HEMOGLOBIN AND [id number] 05:57:00 Test Item Value Reference Range Interpretation Comments HEMOGLOBIN (BEAKER) (test code = 7.1 GM/DL 13.0-16.8 L 410) HEMATOCRIT (BEAKER) (test code = 20.4 % 40.0-50.0 L 411) POCT-GLUCOSE [id number] 21:27:00 Test Item Value Reference Range Interpretation Comments POC-GLUCOSE METER 183 mg/dL 70-110 H TESTED AT [facility] 67[address] (BEAKER) (test code = [place] 1538) [id number] BASIC METABOLIC [id number] 14:40:00 Test Item Value Reference Range Interpretation Comments SODIUM (BEAKER) 145 meq/L 136-145 (test code = 381) POTASSIUM (BEAKER) 4.3 meq/L 3.5-5.1 (test code = 379) CHLORIDE (BEAKER) 111 meq/L 98-107 H (test code = 382) CO2 (BEAKER) (test 22 meq/L 22-29 code = 355) BLOOD UREA NITROGEN 75 mg/dL 7-21 H (BEAKER) (test code = 354) CREATININE (BEAKER) 5.54 mg/dL 0.57-1.25 H (test code = 358) GLUCOSE RANDOM 99 mg/dL 70-105 (BEAKER) (test code = 652) CALCIUM (BEAKER) 9.5 mg/dL 8.4-10.2 (test code = 697) EGFR (BEAKER) (test mL/min/1.73 INSUFFIC IENT CLINICAL code = 1092) sq m DATA TO CALCULA TE ESTIMATED GFR. URINALYSIS W/ [id number] 14:34:00 Test Item Value Reference Range Interpretation Comments COLOR (BEAKER) (test code Light Yellow = 470) CLARITY (BEAKER) (test Clear code = 469) SPECIFIC GRAVITY UA 1.008 1.001-1.035 (BEAKER) (test code = 468) PH UA (BEAKER) (test code 5.5 5.0-8.0 = 467) PROTEIN UA (BEAKER) (test 100 mg/dL Negative A code = 464) GLUCOSE UA (BEAKER) (test Negative Negative code = 365) KETONES UA (BEAKER) (test Negative Negative code = 371) BILIRUBIN UA (BEAKER) Negative Negative (test code = 462) BLOOD UA (BEAKER) (test Small Negative A code = 461) NITRITE UA (BEAKER) (test Negative Negative code = 465) LEUKOCYTE ESTERASE UA Negative Negative (BEAKER) (test code = 466) UROBILINOGEN UA (BEAKER) 0.2 mg/dL 0.2-1.0 (test code = 463) RBC UA (BEAKER) (test code 1 /HPF = 519) WBC UA (BEAKER) (test code < /HPF = 520) GRANULAR CASTS (BEAKER) 2 /LPF (test code = 515) SOURCE(BEAKER) (test code Urine, Clean Catch = 2795) [id number] 14:33:00 Test Item Value Reference Range Interpretation Comments PROTIME (BEAKER) (test code = 13.2 seconds 11.7-14.7 759) INR (BEAKER) (test code = 370) 1.0 <=5.9 PARTIAL THROMBOPLASTIN TIME 28.0 seconds 22.5-36.0 (BEAKER) (test code = 760) RECOMMENDED COUMADIN/WARFARIN INR THERAPY RANGESSTANDARD DOSE: 2.0 - 3.0 Includes: PROPHYLAXIS forvenous thrombosis, systemic embolization; TREATMENT for venous thrombosis and/or pulmonary embolus.HIGH RISK: Target INR is 2.5-3.5 for patients with mechanical heart valves.CBC W/PLT COUNT & AUTO DIFFERENTIAL 2016-11-02 14:31:00 Test Item Value Reference Range Interpretation Comments WHITE BLOOD CELL COUNT (BEAKER) 6.0 K/ L 4.0-10.0 (test code = 775) RED BLOOD CELL COUNT (BEAKER) 2.65 M/ L 4.20-5.80 L (test code = 761) HEMOGLOBIN (BEAKER) (test code = 8.3 GM/DL 13.0-16.8 L 410) HEMATOCRIT (BEAKER) (test code = 23.8 % 40.0-50.0 L 411) MEAN CORPUSCULAR VOLUME (BEAKER) 89.8 fL 82.0-98.0 (test code = 753) MEAN CORPUSCULAR HEMOGLOBIN 31.2 pg 27.0-33.0 (BEAKER) (test code = 751) MEAN CORPUSCULAR HEMOGLOBIN CONC 34.7 GM/DL 32.0-36.0 (BEAKER) (test code = 752) RED CELL DISTRIBUTION WIDTH 16.7 % 10.3-14.2 H (BEAKER) (test code = 412) PLATELET COUNT (BEAKER) (test 167 K/CU MM 150-430 code = 756) MEAN PLATELET VOLUME (BEAKER) 7.7 fL 6.5-10.5 (test code = 754) NUCLEATED RED BLOOD CELLS 0 /100 WBC 0-0 (BEAKER) (test code = 413) NEUTROPHILS RELATIVE PERCENT 66 % (BEAKER) (test code = 429) LYMPHOCYTES RELATIVE PERCENT 22 % (BEAKER) (test code = 430) MONOCYTES RELATIVE PERCENT 7 % (BEAKER) (test code = 431) EOSINOPHILS RELATIVE PERCENT 5 % (BEAKER) (test code = 432) BASOPHILS RELATIVE PERCENT 0 % (BEAKER) (test code = 437) NEUTROPHILS ABSOLUTE COUNT 3.94 K/ L 1.80-8.00 (BEAKER) (test code = 670) LYMPHOCYTES ABSOLUTE COUNT 1.31 K/ L 1.48-4.50 L (BEAKER) (test code = 414) MONOCYTES ABSOLUTE COUNT (BEAKER) 0.41 K/ L 0.00-1.30 (test code = 415) EOSINOPHILS ABSOLUTE COUNT 0.32 K/ L 0.00-0.50 (BEAKER) (test code = 416) BASOPHILS ABSOLUTE COUNT (BEAKER) 0.01 K/ L 0.00-0.20 (test code = 417) 0.00
[2020-03-30 22:08] LABS: Absolute Lymphocytes (CBC) 0.6 K/uL (0.7-4.9); Basophils % 0.5 % (0-1.3); Hematocrit 27.5 % (39.6-49.0); Lymphocytes % 6.3 % (15.3-44.8); MPV 8.5 fL (7.6-11.3); RBC Red Blood Cell Count 2.92 M/uL (4.33-5.43)
[2020-03-30] MEDS ORDERED: NA CHLORIDE 0.9% 1,000 ML ONE (22:26)
[2020-03-30 22:38] LABS: Albumin 2.1 g/dL (3.4-5.0); Bilirubin Direct 0.3 mg/dL (0-0.2); Bilirubin Total 0.7 mg/dL (0.2-1.0); Protein, Total 6.5 g/dL (6.4-8.2)
[2020-03-30 22:41] LABS: Potassium 3.6 mmol/L (3.5-5.1)
[2020-03-31] MEDS ORDERED: Levofloxacin500mg IV 500 MG/100 ML BAG IV ONE (01:58)
[2020-03-31] MEDS ORDERED: METRONIDAZOLE 500mg IVPB 500 MG/100 ML BAG IV ONE (01:59)
[2020-03-31] MEDS ORDERED: FAMOTIDINE 20 MG/2 ML VIAL IV ONE (01:59)
[2020-03-31] MEDS ORDERED: ONDANSETRON 4 MG/2 ML VIAL ONE (02:59)
[2020-03-31] MEDS ORDERED: MORPHINE 2 MG/ML SYR ONE (02:59)
[2020-03-31] MEDS ORDERED: NA CHLORIDE 0.9% 1,000 ML ONE (03:19)
[2020-03-31 03:24] LABS: Protime INR 7.21
[2020-03-31] MEDS ORDERED: NA CHLORIDE 0.9% 250 ML ONE (04:19)
[2020-03-31] MEDS ORDERED: PANTOPRAZOLE 40 MG INJ ONE (04:19)
--- NOTE | 2020-03-31 04:56 | ER ---
Nurse's Notes [facility] Name: Avery Ray Sr Age: 84 yrs Sex: Male : 1935 Arrival Date: 03/30/2020 Time: 21:45 Bed 15 Private MD: Diagnosis: Abdominal Pain;Coagulopathy;GI Bleeding Presentation: 03/30 21:45 Chief complaint: EMS states: "Patient complains of stomach pain that redding, patient is vc a dialysis patient that goes to dialysis on MWF, patient vitals on arrival were 90/51, temp 97.1, spO2 98%. patient runs a low BP.". Coronavirus screen: Patient denies a cough. Patient denies shortness of breath or difficulty breathing. Patient denies measured and/or subjective temperature greater than 100.4F prior to today's visit. Patient denies travel on a cruise ship or to a country the [facility] currently lists as an affected area. Patient denies contact with known and/or suspected case of COVID-19. Proceed with normal triage. Patient instructed to continue to wear a mask when interacting with others. Patient moved to private room, placed in contact and droplet isolation with eye protection until further assessment. Ebola Screen: No symptoms or risks identified at this time. 21:45 Method Of Arrival: EMS: [facility] vc 21:45 Initial Sepsis Screen: Does the patient meet any 2 criteria? Systolic BP < 90 mmHg. No. vc Patient's initial sepsis screen is negative. Does the patient have a suspected source of infection? No. Patient's initial sepsis screen is negative. Risk Assessment: Do you want to hurt yourself or someone else? Patient reports no desire to harm self or others. Onset of symptoms was March 30, 2020. 21:45 Acuity: LILO 3 vc Historical: - Allergies: 22:00 PENICILLINS; vc - Home Meds: 22:00 acetaminophen-codeine 300-30 mg Oral tab 1 tab every 6 hours [Active]; allopurinol 300 vc mg Oral tab 1 tab once daily [Active]; cholecalciferol (vitamin D3) 5,000 unit Oral cap daily [Active]; isosorbide dinitrate 20 mg Oral tab 1 tab 2 times per day [Active]; sevelamer HCl 800 mg TID with meals Oral [Active]; sodium bicarbonate 650 mg Oral tab 650 mg three times a day [Active]; 03/31 03:35 warfarin 2.5 mg Oral tab 1 tab once daily [Active]; sg - PMHx: 03/30 22:00 Diabetes - NIDDM; ESRD; Gout; Hypertension; vc - PSHx: 22:00 Dialysis fistula - Left Arm; split chiquita; vc - Immunization history:: Adult Immunizations up to date. - Social history:: Smoking status: Patient denies any tobacco usage or history of. Screenin/19 02:00 Abuse screen: Denies threats or abuse. Nutritional screening: No deficits noted. mt2 Tuberculosis screening: No symptoms or risk factors identified. Fall Risk Gait- Weak (10 pts.). Assessment: 03/30 22:00 General: Appears in no apparent distress. uncomfortable, ill, Behavior is calm, vc cooperative, appropriate for age. Pain: Complains of pain in umbilical area Pain does not radiate. Pain currently is 10 out of 10 on a pain scale. Quality of pain is described as sharp, stabbing. Neuro: Level of Consciousness is awake, alert, obeys commands, Oriented to person, place, time, situation, Appropriate for age. Cardiovascular: Patient's skin is warm and dry. Rhythm is Respiratory: Airway is patent Respiratory effort is even, unlabored, Respiratory pattern is regular, symmetrical. GI: Abdomen is non-distended, Bowel sounds present X 4 quads. Abd is soft Abdomen is tender to palpation in umbilical area, right lower quadrant and left lower quadrant. : Reports anuric. EENT: No signs and/or symptoms were reported regarding the EENT system. 23:00 Reassessment: Patient appears in no apparent distress at this time. Patient and/or vc family updated on plan of care and expected duration. Pain level reassessed. Patient states symptoms have not improved. 23:00 Reassessment: Patient complains of abdominal pain, medical provider notified, patients vc blood pressure to low for pain medication. Will continue to monitor. 03/31 00:00 Reassessment: Patient appears in no apparent distress at this time. Patient and/or vc family updated on plan of care and expected duration. Pain level reassessed. Patient states symptoms have not improved. 01:00 Reassessment: Patient appears in no apparent distress at this time. Patient and/or vc family updated on plan of care and expected duration. Pain level reassessed. Patient states symptoms have not improved. 02:00 Reassessment: Patient appears in no apparent distress at this time. Patient and/or vc family updated on plan of care and expected duration. Pain level reassessed. Patient states symptoms have not improved. 03:00 Reassessment: Patient and/or family updated on plan of care and expected duration. Pain mt2 level reassessed. Pain: Complains of pain in umbilical area Pain currently is 7 out of 10 on a pain scale. 04:23 Reassessment: Patient and/or family updated on plan of care and expected duration. Pain mt2 level reassessed. Patient denies pain at this time. Patient states symptoms have improved. 05:30 Reassessment: Patient denies pain at this time. Patient states symptoms have improved. mt2 06:23 Reassessment: PATIENT TRANSFERING TO [facility] FOR GI SERVICES. REPORT GIVEN TO FACILITY [facility] AND EMS AT BEDSIDE. . Vital Signs: 03/30 21:35 BP 82 / 47 RA (man/reg); Pulse 63; Resp 18 S; Temp 97.7(O); Pulse Ox 99% on R/A; Pain jp3 9/10; 21:45 BP 89 / 55; Pulse 79; Resp 11; Temp 97.4; Pulse Ox 88% on R/A; vc 21:57 Resp 9; Pulse Ox 92% on 2 lpm NC; vc 22:00 BP 90 / 56; Pulse 79; Resp 16; Pulse Ox 93% on 2 lpm NC; vc 23:00 BP 87 / 47; Pulse 79; Resp 20; Pulse Ox 93% on 2 lpm NC; vc 03/31 00:00 BP 88 / 51; Pulse 79; Resp 20; Pulse Ox 94% on 2 lpm NC; vc 02:45 BP 92 / 51; Pulse 80; Resp 20; Pulse Ox 93% on R/A; vc 03:30 BP 91 / 52; Pulse 63; Resp 17; Pulse Ox 94% on 2 lpm NC; Pain 7/10; mt2 04:22 BP 84 / 46; Pulse 61; Resp 19; Pulse Ox 96% on 2 lpm NC; Pain 4/10; mt2 05:30 BP 87 / 44; Pulse 67; Resp 19; Temp 97.8(TE); Pulse Ox 97% on 2 lpm NC; Pain 0/10; mt2 06:00 BP 85 / 51; Pulse 69; Resp 18; Pulse Ox 97% on 2 lpm NC; Pain 0/10; mt2 Vitals: 05:00 Cardiac Rhythm Assessment Regular Sinus sophia. mt2 ED Course: 03/30 21:35 Inserted saline lock: 20 gauge in right antecubital area, using aseptic technique. jp3 Blood collected. 21:35 Initial lab(s) drawn, by me, held in ED. First set of blood cultures drawn by me. jp3 Patient maintains SpO2 saturation greater than 95% on room air. 21:35 Patient has correct armband on for positive identification. Placed in gown. Bed in low jp3 position. Call light in reach. Side rails up X 1. Side rails up X2. Warm blanket given. Verbal reassurance given. desk monitor on. Pulse ox on. NIBP on. 21:45 Patient arrived in ED. vc 21:46 Houston hO MD is Attending Physician. [facility] 21:58 Triage completed. vc 22:03 Danii Campuzano, DANIEL is Primary Nurse. vc 22:10 pt tanya Verdugo [phone]. mw2 22:55 Chest Single View XRAY In Process Unspecified. EDMS 07 00:25 CT Abd/Pelvis - Without Contrast In Process Unspecified. EDMS 02:00 Arm band placed on right wrist. mt2 02:44 Ultrasound completed. Patient tolerated well. Notified ED Physician cherelle. sg3 02:44 US Abdomen Limited In Process Unspecified. EDMS 02:48 Assist provider with pelvic exam: Performed by Houston Oh MD Patient tolerated. mt2 03:49 Type And Screen Sent. mt2 03:49 Procalcitonin Sent. mt2 03:50 Lactate Sent. mt2 05:08 Lab(s) recollected, by me, sent to lab. sg 05:32 Type And Screen Sent. mt2 05:32 Procalcitonin Sent. mt2 06:27 Patient transferred, IV remains in place. mt2 Administered Medications: 01:30 Drug: Pepcid 20 mg Route: IVP; Site: right antecubital; mt2 02:59 Follow up: Response: No adverse reaction; No change in condition mt2 01:30 Drug: LevaQUIN 500 mg Volume: 100 ml; Route: IVPB; Infused Over: 60 mins; Site: right mt2 antecubital; 02:58 Follow up: Response: No adverse reaction; IV Status: Completed infusion mt2 01:30 Drug: Flagyl 500 mg Volume: 100 ml; Route: IVPB; Rate: 200 ml/hr; Infused Over: 30 mt2 mins; Site: right antecubital; 03:30 Follow up: Response: No adverse reaction; IV Status: Completed infusion mt2 01:44 Not Given (Physician Discretion): NS 0.9% 1000 ml IV at 1000 ml once vc 02:58 Drug: Zofran (Ondansetron) 4 mg Route: IVP; Site: right antecubital; mt2 04:08 Follow up: Response: No adverse reaction; Nausea is decreased mt2 02:58 Drug: morphine 2 mg Route: IVP; Site: right antecubital; mt2 04:08 Follow up: Response: No adverse reaction; Pain is decreased mt2 04:00 Drug: ProTONIX 40 mg Route: IVP; Site: right antecubital; mt2 04:20 Follow up: Response: No adverse reaction; No change in condition mt2 04:15 Drug: ProTONIX 8 mg/hr Route: IV; Rate: 25 ml/hr; Site: left antecubital; mt2 06:28 Follow up: Response: No adverse reaction; Marked relief of symptoms; Pain is decreased; mt2 IV Status: Infusion continued upon transfer Outcome: 04:56 ER care complete, transfer ordered by . [facility] 06:30 Transferred by [facility] to [facility], Transfer form completed. mt2 06:30 Condition: unchanged 06:30 Instructed on the need for transfer, Demonstrated understanding of instructions. 06:35 Patient left the ED. mt2 Signatures: Dispatcher [employer] EDMS Juancarlos Gauthier RN RN sg Godinez, Sarah 3 Bruno Marr 2 Ed Headley jp3 Danii Campuzano RN RN vc Holmes, Maurice, MD MD [facility] Dixie Soto RN RN mt2
--- NOTE | 2020-03-31 04:56 | EDPHYS ---
Physician Documentation [facility] Name: Avery Ray Sr Age: 84 yrs Sex: Male : 1935 Arrival Date: 03/30/2020 Time: 21:45 Bed 15 Private MD: ED Physician Houston Oh HPI: 03/30 21:57 This 84 yrs old Male presents to ER via Unassigned with complaints of mh7 Abdominal Pain. 21:57 The patient presents with abdominal pain in the periumbilical area. Onset: The mh7 symptoms/episode began/occurred today. The symptoms do not radiate. Associated signs and symptoms: Pertinent negatives: nausea, vomiting, and diarrhea, anorexia, blood in stools, chest pain, constipation, diarrhea, dysuria, fever, headache, hematuria, nausea, palpitations, shortness of breath, testicular pain, vomiting, vomiting blood. The symptoms are described as intermittent, vague, waxing/waning. Modifying factors: The symptoms are alleviated by nothing, the symptoms are aggravated by nothing. Severity of pain: At its worst the pain was moderate today, in the emergency department the pain has improved moderately. Historical: - Allergies: 22:00 PENICILLINS; vc - Home Meds: 22:00 acetaminophen-codeine 300-30 mg Oral tab 1 tab every 6 hours [Active]; allopurinol 300 vc mg Oral tab 1 tab once daily [Active]; cholecalciferol (vitamin D3) 5,000 unit Oral cap daily [Active]; isosorbide dinitrate 20 mg Oral tab 1 tab 2 times per day [Active]; sevelamer HCl 800 mg TID with meals Oral [Active]; sodium bicarbonate 650 mg Oral tab 650 mg three times a day [Active]; 03/31 03:35 warfarin 2.5 mg Oral tab 1 tab once daily [Active]; sg - PMHx: 03/30 22:00 Diabetes - NIDDM; ESRD; Gout; Hypertension; vc - PSHx: 22:00 Dialysis fistula - Left Arm; split chiquita; vc - Immunization history:: Adult Immunizations up to date. - Social history:: Smoking status: Patient denies any tobacco usage or history of. ROS: 21:57 Constitutional: Negative for fever, chills, and weight loss, Eyes: Negative for injury, mh7 pain, redness, and discharge, ENT: Negative for injury, pain, and discharge, Neck: Negative for injury, pain, and swelling, Cardiovascular: Negative for chest pain, palpitations, and edema, Respiratory: Negative for shortness of breath, cough, wheezing, and pleuritic chest pain, Back: Negative for injury and pain, : Negative for injury, bleeding, discharge, and swelling, MS/Extremity: Negative for injury and deformity, Skin: Negative for injury, rash, and discoloration, Neuro: Negative for headache, weakness, numbness, tingling, and seizure, Psych: Negative for depression, anxiety, suicide ideation, homicidal ideation, and hallucinations, Allergy/Immunology: Negative for hives, rash, and allergies, Endocrine: Negative for neck swelling, polydipsia, polyuria, polyphagia, and marked weight changes, Hematologic/Lymphatic: Negative for swollen nodes, abnormal bleeding, and unusual bruising. Exam: 21:57 Constitutional: This is a well developed, well nourished patient who is awake, alert, mh7 and in no acute distress. Head/Face: Normocephalic, atraumatic. Eyes: Pupils equal round and reactive to light, extra-ocular motions intact. Lids and lashes normal. Conjunctiva and sclera are non-icteric and not injected. Cornea within normal limits. Periorbital areas with no swelling, redness, or edema. ENT: Nares patent. No nasal discharge, no septal abnormalities noted. Tympanic membranes are normal and external auditory canals are clear. Oropharynx with no redness, swelling, or masses, exudates, or evidence of obstruction, uvula midline. Mucous membranes moist. Neck: Trachea midline, no thyromegaly or masses palpated, and no cervical lymphadenopathy. Supple, full range of motion without nuchal rigidity, or vertebral point tenderness. No Meningismus. Chest/axilla: Normal chest wall appearance and motion. Nontender with no deformity. No lesions are appreciated. Cardiovascular: Regular rate and rhythm with a normal S1 and S2. No gallops, murmurs, or rubs. Normal PMI, no JVD. No pulse deficits. Respiratory: Lungs have equal breath sounds bilaterally, clear to auscultation and percussion. No rales, rhonchi or wheezes noted. No increased work of breathing, no retractions or nasal flaring. 21:57 Back: No spinal tenderness. No costovertebral tenderness. Full range of motion. Skin: Warm, dry with normal turgor. Normal color with no rashes, no lesions, and no evidence of cellulitis. MS/ Extremity: Pulses equal, no cyanosis. Neurovascular intact. Full, normal range of motion. Neuro: Awake and alert, GCS 15, oriented to person, place, time, and situation. Cranial nerves II-XII grossly intact. Motor strength 5/5 in all extremities. Sensory grossly intact. Cerebellar exam normal. Normal gait. Psych: Awake, alert, with orientation to person, place and time. Behavior, mood, and affect are within normal limits. 21:57 Abdomen/GI: Inspection: abdomen appears normal, scar(s), Bowel sounds: normal, in all quadrants, Palpation: mild abdominal tenderness, in the umbilical area, Rectal exam: the exam is deferred, because of patient request, Indicators: McBurney's point is not tender, Hawthorne's sign is negative, Rovsing's sign is negative, Obturator sign is negative, Psoas sign is negative, Liver: no appreciated palpable abnormalities, Hernia: not appreciated. 03/31 01:51 ECG was reviewed by the Attending Physician. [facility] 06:12 Abdomen/GI: Rectal exam: rectal tone normal, Stool: guaiac positive, green, mh7 hemorrhoid(s), are not appreciated, mass, is not appreciated, swelling, is not appreciated, tenderness, is not appreciated, fecal impaction, is not appreciated, the exam is chaperoned by the nurse. Vital Signs: 03/30 21:35 BP 82 / 47 RA (man/reg); Pulse 63; Resp 18 S; Temp 97.7(O); Pulse Ox 99% on R/A; Pain jp3 9/10; 21:45 BP 89 / 55; Pulse 79; Resp 11; Temp 97.4; Pulse Ox 88% on R/A; vc 21:57 Resp 9; Pulse Ox 92% on 2 lpm NC; vc 22:00 BP 90 / 56; Pulse 79; Resp 16; Pulse Ox 93% on 2 lpm NC; vc 23:00 BP 87 / 47; Pulse 79; Resp 20; Pulse Ox 93% on 2 lpm NC; vc 03/31 00:00 BP 88 / 51; Pulse 79; Resp 20; Pulse Ox 94% on 2 lpm NC; vc 02:45 BP 92 / 51; Pulse 80; Resp 20; Pulse Ox 93% on R/A; vc 03:30 BP 91 / 52; Pulse 63; Resp 17; Pulse Ox 94% on 2 lpm NC; Pain 7/10; mt2 04:22 BP 84 / 46; Pulse 61; Resp 19; Pulse Ox 96% on 2 lpm NC; Pain 4/10; mt2 05:30 BP 87 / 44; Pulse 67; Resp 19; Temp 97.8(TE); Pulse Ox 97% on 2 lpm NC; Pain 0/10; mt2 06:00 BP 85 / 51; Pulse 69; Resp 18; Pulse Ox 97% on 2 lpm NC; Pain 0/10; mt2 MDM: 03/30 21:[address] [facility] 03/31 04:53 Differential diagnosis: AAA, appendicitis, bowel obstruction, cholecystitis, [facility] Cholelithiasis, diverticulitis, gastritis, gastroesophageal reflux disease, GI Bleed, non-specific abd pain, pancreatitis, Peptic Ulcer Disease, Perf. Duodenal Ulcer, Perf. Gastric Ulcer, Ureterolithiasis, urinary tract infection. Data reviewed: vital signs, nurses notes, EMS record, old medical records, lab test result(s), CBC, electrolytes, EKG, radiologic studies, CT scan, plain films, ultrasound. Data interpreted: clinical research monitor: rate is 80 beats/min, rhythm is normal sinus rhythm, regular, Interpretation: normal rate, normal rhythm, Pulse oximetry: on room air is 96 %. Interpretation: normal. Plan: O2 by NC applied. Counseling: I had a detailed discussion with the patient and/or guardian regarding: the historical points, exam findings, and any diagnostic results supporting the discharge/admit diagnosis, lab results, radiology results, the need to transfer to another facility, for higher level of care, [facility] does not immediately have the required specialist. Response to treatment: the patient's symptoms have markedly improved after treatment. 03/30 21:52 Order name: Basic Metabolic Panel; Complete Time: 23:58 [facility] 03/30 21:52 Order name: CBC with Diff; Complete Time: 23:58 [facility] 03/30 21:52 Order name: Hepatic Function; Complete Time: 23:58 [facility] 03/30 21:52 Order name: Lipase; Complete Time: 23:58 [facility] 03/31 01:38 Order name: Protime (+inr); Complete Time: 03:36 [facility] 03/31 01:38 Order name: Ptt, Activated; Complete Time: 03:36 [facility] 03/30 21:54 Order name: CT Abd/Pelvis - Without Contrast [facility] 03/30 22:18 Order name: Chest Single View XRAY [facility] 03/31 02:11 Order name: US Abdomen Limited [facility] 03/31 03:13 Order name: Lactate [facility] 03/31 03:13 Order name: Procalcitonin [facility] 03/31 03:36 Order name: Type And Screen [facility] 03/30 21:52 Order name: IV Saline Lock; Complete Time: 22:03 [facility] 03/30 21:52 Order name: Labs collected and sent; Complete Time: 22:03 [facility] 03/30 21:52 Order name: EKG - Nurse/Tech; Complete Time: 01:18 [facility] 03/31 04:31 Order name: Labs - recollect needed: Recollect TS and Green Top please; Complete Time: sg 06:06 EC:51 Rate is 80 beats/min. Rhythm is regular, Normal Sinus Rhythm with AV sequential paced. [facility] [place] interval is normal. QRS interval is normal. Clinical impression: Abnormal EKG without significant change. Administered Medications: 01:30 Drug: Pepcid 20 mg Route: IVP; Site: right antecubital; or2 02:59 Follow up: Response: No adverse reaction; No change in condition or2 01:30 Drug: LevaQUIN 500 mg Volume: 100 ml; Route: IVPB; Infused Over: 60 mins; Site: right or2 antecubital; 02:58 Follow up: Response: No adverse reaction; IV Status: Completed infusion mt2 01:30 Drug: Flagyl 500 mg Volume: 100 ml; Route: IVPB; Rate: 200 ml/hr; Infused Over: 30 mt2 mins; Site: right antecubital; 03:30 Follow up: Response: No adverse reaction; IV Status: Completed infusion mt2 01:44 Not Given (Physician Discretion): NS 0.9% 1000 ml IV at 1000 ml once vc 02:58 Drug: Zofran (Ondansetron) 4 mg Route: IVP; Site: right antecubital; mt2 04:08 Follow up: Response: No adverse reaction; Nausea is decreased mt2 02:58 Drug: morphine 2 mg Route: IVP; Site: right antecubital; mt2 04:08 Follow up: Response: No adverse reaction; Pain is decreased mt2 04:00 Drug: ProTONIX 40 mg Route: IVP; Site: right antecubital; mt2 04:20 Follow up: Response: No adverse reaction; No change in condition mt2 04:15 Drug: ProTONIX 8 mg/hr Route: IV; Rate: 25 ml/hr; Site: left antecubital; mt2 06:28 Follow up: Response: No adverse reaction; Marked relief of symptoms; Pain is decreased; mt2 IV Status: Infusion continued upon transfer Disposition: 03/31/20 04:[address] [facility]. Diagnosis are Abdominal Pain, Coagulopathy, GI Bleeding. - Reason for transfer: Higher level of care. - Accepting physician is Dr. Pina. - Condition is Stable. - Problem is new. - Symptoms have improved. Signatures: Dispatcher [employer] EDMS Juancarlos Gauthier RN RN sg Danii Campuzano RN RN vc Houston Oh MD MD 7 Dixie Soto RN RN mt2 Corrections: (The following items were deleted from the chart) 06:35 04:56 03/31/2020 04:[address] [facility]. mt2 Diagnosis is Abdominal Pain; Coagulopathy; GI Bleeding. Reason for transfer: Higher level of care. Accepting physician is Dr. Pina. Condition is Stable. Problem is new. Symptoms have improved. 7
[2020-03-31 11:09] VITALS: BP 88/51; O2SAT 94
--- NOTE | 2020-03-31 12:28 | RAD REPORT ---
EXAM DESCRIPTION: RAD - Chest Single View - 03/30/2020 10:55 pm CLINICAL HISTORY: SWELLING Chest pain. COMPARISON: Chest Single View dated 01/22/2020; Chest Single View dated 01/21/2020; Chest Single View dated 11/08/2016; Chest Single View dated 08/05/2016 FINDINGS: Portable technique limits examination quality. Mild pulmonary edema is seen with small bilateral pleural effusions. The heart is moderately enlarged with multilead pacer/defibrillator device present. Sternotomy wires. IMPRESSION: Mild to moderate CHF versus volume overload pattern.
--- NOTE | 2020-04-01 09:04 | RAD REPORT ---
EXAM DESCRIPTION: US Abdomen Limited, Gallbladder CLINICAL HISTORY: The patient is 84 years old and is Male; RUQ Pain TECHNIQUE: Real-time ultrasound of the right upper quadrant with image documentation. COMPARISON: No relevant prior studies available. FINDINGS: GALLBLADDER: The gallbladder is distended with echogenic sludge and gallstones. There is no gallbladder wall thickening. COMMON BILE DUCT: Unremarkable as visualized. No stones. No dilation. IMPRESSION: Cholelithiasis and sludge without findings to suggest cholecystitis. Electronically signed by: Christen Melo MD 03/31/2020 5:33 AM CDT Due to temporary technical issues with the PACS/Fluency reporting system, reports are being signed by the in house radiologist without review as a courtesy to ensure prompt reporting. The interpreting r adiologist is fully responsible for the content of the report.
--- NOTE | 2020-04-01 10:07 | RAD REPORT ---
EXAM DESCRIPTION: CT ABDOMEN PELVIS WITH IV CONTRAST CLINICAL HISTORY: ABD PAIN TECHNIQUE: Contiguous axial images obtained through the abdomen and pelvis without IV contrast. Sunday nal and sagittal reformatted images were provided. This exam was performed according to our departmental dose-optimization program, which includes autom ated exposure control, adjustment of the mA and/or kV according to patient size and/or use of iterati ve reconstruction technique. COMPARISON: 12/06/2016 FINDINGS: Lung bases: Moderate bilateral pleural effusions and adjacent bibasilar consolidation, lef t greater than right. The heart is enlarged. Coronary artery and aortic valvular calcification. Prior CABG. Partially visualized pacer leads. Liver: Grossly unremarkable Gallbladder and biliary system: Distended gallbladder with numerous layering stones. Mild surrounding inflammation. Pancreas: Mild pancreatic parenchymal atrophy. Spleen: Grossly unremarkable Adrenals: Unremarkable Kidneys: The kidneys are atrophic. Small calcification at the lower pole on the right which may be co rtical or vascular. No hydronephrosis. Bowel: Moderate stool. Fecal loading in the rectosigmoid colon. Bowel to the rectal wall thickening w ith with perirectal and presacral edema. No obstruction. Appendix: Normal caliber appendix. No findings to suggest acute appendicitis. Urinary bladder: Unremarkable Reproductive: The prostate is enlarged. Lymph nodes: No pathologically enlarged lymph nodes. Peritoneum: Trace perihepatic fluid. No free air. Vessels: Moderate to severe atherosclerotic disease. No abdominal aortic aneurysm. Abdominal wall: Small fat-containing right inguinal hernia. Bones: Multilevel spondylosis. Dysplastic changes of the right hip. IMPRESSION: 1. Findings concerning for acute cholecystitis. 2. Fecal loading in the rectosigmoid colon. There is mild rectal wall thickening with mild perirect al and presacral edema. This may be related to fecal impaction. Early stercoral colitis not entirely excluded. 3. Moderate bilateral joint effusions and adjacent bibasilar consolidation, left greater than right (atelectasis and/or infiltrate). 4. Other findings as above. Electronically signed by: Darwin Jorgensen MD 03/31/2020 12:57 AM CDT Due to temporary technical issues with the PACS/Fluency reporting system, reports are being signed by the in house radiologist without review as a courtesy to ensure prompt reporting. The interpreting r adiologist is fully responsible for the content of the report.
== END 2020-03-31 06:35 | disposition short-term general hospital (02) ==
LOC: ER 21:23
DX: D68.9 Coagulation defect, unspecified (principal); K92.2 Gastrointestinal hemorrhage, unspecified; E11.22 Type 2 diabetes mellitus with diabetic chronic kidney disease; N18.6 End stage renal disease; I10 Essential (primary) hypertension; Z79.01 Long term (current) use of anticoagulants; Z88.0 Allergy status to penicillin
CPT/HCPCS: 96365; 96367; 96368; 93005; 85025; 80048; 36415; 86900; 86850; 85610; 86901; 80076; 83605; 85730; 83690; 84145; 74176; 71045; 76705; 96375; 99285; 96366; C9113; J2270; J7050; J7030 ×2; J2405